=== PATIENT | male | born 1955 | race Caucasian/White ===

== ENCOUNTER 2016-03-28 18:28 | Emergency (ER) | payer OTHER ==
[~2016-03-28 18:28] MED LIST: ADV250INH INH; ALBU17IN INH; ALBU83IN INH; ALBUTEROL INH; AMIO400T OR; BUME1TAB13 PO; CARD180C4 PO; CARDIZEM PO; COLC1TAB5 PO; COUM10TA OR; DIGO0.257 OR; DIGO25TA PO; ELIQ5TAB PO; K-TA10TA OR; LASI80TA PO; LOPR1TAB6 PO; MAGN400T5 PO; MEDR4PAK PO; METO50TA4 OR; OXYCODONE PD; PERC5TAB8 OR; POTA-77 PO; POTA20TA2 PO; POTA20TA6 PO; PRED50TA PO; RAMI25CA OR; SING5CHW PO; SLOWTAB OR; SLOWTAB PO; SPIR1CAP INH; SPIR50TA2 PO; SPIRPOW PO; SYMB16INH INH; SYMB80AE INH; TRAM50TA2 OR; TYLE325T5 PO; WARF-22 PO; WARF-23 PO
[2016-03-28 19:06] LABS: BASO # 0.1 K/mm3 (0.0-0.2); BASO % 1.2 % (0.0-1.0); EOS # 0.1 K/mm3 (0.0-0.50); EOS % 0.8 % (0.0-3.0); LARGE UNSTAINED CELL # 0.1 K/mm3 (0.0-0.4); LARGE UNSTAINED CELL % 1.8 % (0.0-4.0); LYMPH # 0.8 K/mm3 (1.5-4.5); LYMPH % 8.9 % (24.0-44.0); MEAN CORPUSCULAR HGB CONC 33.6 g/dl (32.0-36.5); MEAN CORPUSCULAR VOLUME 92.3 fl (80.0-96.0); MONO # 0.6 K/mm3 (0.0-0.8); MONO % 7.9 % (0.0-5.0); NEUTROPHILS # 6.2 K/mm3 (1.8-7.7); NEUTROPHILS % 79.3 % (36.0-66.0); PLATELET COUNT, AUTOMATED 174 k/mm3 (150-450); RED CELL DISTRIBUTION WIDTH 13.4 % (11.5-14.5); WHITE BLOOD COUNT 7.9 K/mm3 (4.0-10.0)
[2016-03-28] MEDS ORDERED: ASPIRIN 81 MG CHEW TABLET As Ordered ONE (19:07)
[2016-03-28] MEDS ORDERED: ACETAMINOPHEN 325 MG TAB As Ordered ONE (19:35)
[2016-03-28] MEDS ORDERED: IPRATROPIUM 0.5MG/ALBUTEROL 2.5MG INH SOL UD 3ML (DUONEB)(J7620) As Ordered ONE (19:37)
[2016-03-28 19:54] LABS: ABG BASE EXCESS 7.5 (-2.0-2.0); ABG DEVICE NASAL CANN; ABG HCO3 32.2 MEQ/L (22.0-26.0); ABG PARTIAL PRESSURE CO2 45.2 mmHg (35.0-45.0); ABG PARTIAL PRESSURE O2 73.5 mmHg (75.0-100.0); ABG STANDARD HCO3 31.3 MEQ/L (22.0-26.0); ABG TOTAL CO2 33.6 MEQ/L (23.0-31.0); ABG pH (ARTERIAL) 7.471 UNITS (7.350-7.450)
[2016-03-28 19:56] LABS: INR 1.11
[2016-03-28 20:05] LABS: ANION GAP 7 MEQ/L (8-16); BLOOD UREA NITROGEN 18 MG/DL (7-18); CALCIUM LEVEL 8.6 MG/DL (8.8-10.2); CARBON DIOXIDE LEVEL 34 MEQ/L (21-32); CHLORIDE LEVEL 101 MEQ/L (98-107); GLOMERULAR FILTRATION RATE 59.9 (>49); GLUCOSE, FASTING 119 MG/DL (80-110); POTASSIUM SERUM 4.5 MEQ/L (3.5-5.1); SODIUM LEVEL 142 MEQ/L (136-145)
[2016-03-28] MEDS ORDERED: methylPREDNISolone INJ 125 MG/2 ML VIAL (J2930) As Ordered ONE (20:32)
[2016-03-28] MEDS ORDERED: MOXIFLOXACIN 400 MG TAB As Ordered ONE (21:22)
[2016-03-28] MEDS ORDERED: BENZONATATE 100 MG CAP As Ordered ONE (21:25)
[2016-03-28] MEDS ORDERED: ALBUTEROL SULFATE 2.5 MG/0.5 ML INH NEB SOLN As Ordered ONE (21:26)
--- NOTE | 2016-03-28 21:46 | EDDOCDS ---
Nurse's Notes [facility] Name: Terell Mujica Jr Age: 60 yrs Sex: Male : 1955 Arrival Date: 03/28/2016 Time: 18:28 Bed 12 Private MD: Cameron Rivas Diagnosis: Pneumonia, unspecified organism Presentation: 03/28 18:35 Presenting complaint: Patient states: increasing SOB since this past Tuesday sharp jjr pain to left anterior/posterior chest today pain aggravated with cough. Adult Sepsis Screening: The patient does not have new or worsening altered mentation. Patient has a respiratory rate of greater than or equal to 22 (1 point). Systolic blood pressure is greater than 100. Patient has a qSOFA score of 1- Negative Sepsis Screen. Suicide/Homicide risk assessment- the patient denies having any suicidal and/or homicidal ideations and does not present with any other emotional, behavioral or mental health complaints. Status: Patient is not a regulatory services consultant or dependent. Transition of care: patient was not received from another setting of care. 18:35 Acuity: PATTI Level 2 jjr 18:35 Method Of Arrival: Walkin/Carried/Asstd jjr Triage Assessment: 18:41 General: Appears distressed. Pain: Location: left scapular area and anterior aspect of jjr left upper chest. Pt Declines HIV testing. Neurological: No deficits noted. Respiratory: Onset: The symptoms/episode began/occurred gradually, Airway is patent Respiratory effort is labored, with retractions, Respiratory pattern is tachypnea. Historical: - Allergies: atrial fib; No known drug Allergies; - Home Meds: 1. Eliquis 5 mg oral tab 1 tab 2 times per day 2. potassium chloride 10 mEq Oral cpER 2 caps 2 times per day 3. Lasix 80 mg Oral tab 2 tabs 2 times per day 4. spironolactone 25 mg Oral tab 0.5 tab once daily 5. Symbicort 160-4.5 mcg/actuation inhalation HFAA 2 puffs 2 times per day 6. Spiriva with HandiHaler 18 mcg Inhl CpDv 1 cap once daily 7. Proventil 90 mcg/actuation Inhl aero prn 8. albuterol sulfate 2.5 mg /3 mL (0.083 %) Nebulizer nebu prn (Last dose: 03/28/2016) - PMHx: Cancer, Testicular- Right; Asthma; DVT; - PSHx: , right orchiectomy testicular cancer; Heart catherization; Enrique Filter Placement; Hernia repair- Left inguinal; - Social history: Smoking status: Patient states was never smoker of tobacco. No barriers to communication noted, The patient speaks fluent Telugu. - Family history: Not pertinent. - : The pt / caregiver states he / she is on anticoagulants: Eliquis Home medication list is obtained from the patient. - Exposure Risk Screening:: None identified. Screenin:22 Screening information is obtained from the patient. Fall risk: No risks identified. jp6 Assistance ADL's: requires no assistance with activities of daily living. Abuse/DV Screen: The patient / caregiver reports he/she is: not in a situation that causes fear, pain or injury. Nutritional screening: No deficits noted. home support is adequate. 21:20 Advance Directives: Currently, there is no health care proxy. There is no active DNR jp6 order. There is no living will. Assessment: 19:22 Reassessment: Patient states symptoms have not improved. Adult Sepsis Screening: The jp6 patient does not have new or worsening altered mentation. Patient has a respiratory rate of greater than or equal to 22 (1 point). Systolic blood pressure is greater than 100. Patient has a qSOFA score of 1- Negative Sepsis Screen. General: Appears distressed, ill, obese, uncomfortable, Behavior is appropriate for age, cooperative, Reports fever for feeling ill for fatigue for 0-12 hours. Pain: Location: chest. Neurological: Level of Consciousness is awake, alert, Oriented to person, place, time. EENT: No deficits noted. Cardiovascular: Capillary refill < 3 seconds Heart tones S1 S2 present Rhythm is irregular Chest pain is described as mild. Respiratory: Airway is patent Respiratory effort is even, labored, Respiratory pattern is tachypnea Breath sounds with wheezes inspiratory expiratory bilaterally. GI: No deficits noted. : No deficits noted. Derm: Skin is dry, Skin is flushed, Skin temperature is hot. Musculoskeletal: No deficits noted. 19:55 Cardiovascular: Rhythm is atrial fibrillation. jp6 21:30 Reassessment: Patient states symptoms have improved. Pain: Denies pain. Cardiovascular: jp6 Rhythm is atrial fibrillation. Respiratory: Airway is patent Respiratory effort is even, unlabored, Respiratory pattern is regular, symmetrical, Breath sounds with wheezes inspiratory expiratory is moving more air. 21:40 Reassessment: Patient states symptoms have not improved. Cardiovascular: Rhythm is jp6 atrial fibrillation. Respiratory: Airway is patent Respiratory effort is even, labored, pursed lip. Derm: Skin is pink, warm & dry. Vital Signs: 18:31 BP 168 / 91; Pulse 103; Resp 30; Pulse Ox 91% on R/A; Weight 153.77 kg; Height 6 ft. 3 elp in. (190.50 cm); 19:22 Temp 100.9(O); jp6 19:35 BP 138 / 63 (auto/); jp6 19:35 Pulse 102 MON; Pulse Ox 93% ; jp6 19:50 BP 113 / 55 (auto/); jp6 19:50 Pulse 106 MON; Pulse Ox 91% ; jp6 20:05 BP 154 / 79 (auto/); jp6 20:05 Pulse 130 MON; Pulse Ox 92% ; jp6 20:20 BP 129 / 68 (auto/); jp6 20:20 Pulse 102 MON; Pulse Ox 93% ; jp6 20:35 BP 152 / 72 (auto/); jp6 20:35 Pulse 114 MON; Pulse Ox 94% ; jp6 20:38 Temp 99.3(O); jp6 20:50 BP 155 / 82 (auto/); jp6 20:50 Pulse 108 MON; Pulse Ox 90% ; jp6 21:20 BP 144 / 110 (auto/); jp6 21:20 Pulse 110 MON; Pulse Ox 90% ; jp6 21:20 Resp 22; Pain 2/10; jp6 18:31 Body Mass Index 42.37 (153.77 kg, 190.50 cm) elp Vitals: 18:31 Log In Time: March 28, 2016 at 18:29. RN notified that patient meets Red Flag elp criteria. ED Course: 18:30 Patient visited by Nanette Solorio PCA. elp 18:30 Cameron Rivas is Private Physician. elp 18:30 Patient moved to Waiting elp 18:31 Patient visited by Nanette Solorio PCA. elp 18:35 Kellie Jacob,NIR is Primary Nurse. jjr 18:35 Patient moved to 12 jjr 18:36 Triage Initiated jjr 18:51 Patient visited by [facility]. jml1 18:51 EKG done. (by ED staff). Reviewed by Sissy Holloway MD. jml1 18:54 surveillance system monitor on. Pulse ox on. NIBP on. jjr 18:54 Inserted saline lock: 20 gauge in left antecubital area and blood collected. Labs jjr drawn. (by ED staff). Sent per order to lab. O2 via nasal cannula \T\ 3L/min. 19:03 Patient visited by Cuong Waldron PCA. kb5 19:05 Primary Nurse role handed off by Kellie aJcob,RN jp6 19:05 Marni Mckeon,RN is Primary Nurse. jp6 19:10 Bur[facility] Gimenez F[facility] is [facility]. ke 19:10 Patient visited by Burak Gimenez FNP. ke 19:10 Patient visited by Burak Gimenez FNP. ke 19:22 The patient / caregiver is instructed regarding the plan of care and ED course. jp6 19:42 -Influenza A&B Rapid Antigen - Nose Sent. jp6 19:43 Patient visited by Burak Gimenez FNP. ke 19:53 -Arterial Blood Gas Sent. rs5 20:10 [facility] Payment Agreement was scanned into [employer] and attached to record. zo 20:11 Patient visited by Burak Gimenez FNP. ke 20:48 Patient visited by Burak Gimenez FNP. ke 21:20 Discontinued lock intact, bleeding controlled, pressure dressing applied, No jp6 redness/swelling at site. No procedures done that require assistance. 21:22 Cameron Rivas is Referral Physician. ke Administered Medications: 19:22 Drug: Aspirin 324 mg [aspirin 81 mg chewable tablet (4 tabs)] Route: PO; jp6 19:37 Drug: Acetaminophen 975 mg [acetaminophen 325 mg tablet (3 tabs)] Route: PO; jp6 19:53 Drug: Albuterol-Ipratropium 1 neb [ipratropium-albuterol 0.5 mg-3 mg(2.5 mg base)/3 mL rs5 nebulization soln (1 neb)] Route: Nebulizer; 19:53 Drug: Albuterol-Ipratropium 1 neb [ipratropium-albuterol 0.5 mg-3 mg(2.5 mg base)/3 mL rs5 nebulization soln (1 neb)] Route: Nebulizer; 19:53 Drug: Albuterol-Ipratropium 1 neb [ipratropium-albuterol 0.5 mg-3 mg(2.5 mg base)/3 mL rs5 nebulization soln (1 neb)] Route: Nebulizer; 20:37 Not Given (other): methylPREDNISolone Sodium Succinate 125 mg IM once ke 20:38 Drug: Solu-MEDROL 125 mg [Solu-Medrol 500 mg intravenous solution (125 mg)] Route: IVP; jp6 Site: left antecubital; 21:25 Drug: Albuterol 5 mg [albuterol sulfate 2.5 mg/0.5 mL solution for nebulization (1 mL)] rs5 Route: Nebulizer; RT: 19:54 Initial Med Neb Given as ordered Subsequent Med Neb Given as ordered Patient was rs5 reinforced on procedure Patient tolerated procedure well without adverse effect. Respiratory: Respiratory effort is even, labored, Respiratory pattern is regular tachypnea Breath sounds with wheezes bilaterally. 19:57 Respiratory: Reports cough that is productive sputumis green and yellow with blood rs5 streaks. 21:28 Subsequent Med Neb Given as ordered Patient tolerated procedure well without adverse rs5 effect. Order Results: Lab Order: B-Type Natiuretic Peptide; SPEC'M 03/28/16 18:49 Test: BRAIN NATRIURETIC PEPTIDE; Value: 195; Range: <100; Abnormal: Above high normal; Units: PG/ML; Status: F Lab Order: Basic Metabolic Profile; SPEC'M 03/28/16 19:33 Test: GLUCOSE, FASTING; Value: 119; Range: 80-110; Abnormal: Above high normal; Units: MG/DL; Status: F Test: BLOOD UREA NITROGEN; Value: 18; Range: 7-18; Units: MG/DL; Status: F Test: CREATININE FOR GFR; Value: 1.30; Range: 0.70-1.30; Units: MG/DL; Status: F Test: GLOMERULAR FILTRATION RATE; Value: 59.9; Range: >49; Status: F Test: SODIUM LEVEL; Value: 142; Range: 136-145; Units: MEQ/L; Status: F Test: POTASSIUM SERUM; Value: 4.5; Range: 3.5-5.1; Units: MEQ/L; Status: F Test: CHLORIDE LEVEL; Value: 101; Range: 98-107; Units: MEQ/L; Status: F Test: CARBON DIOXIDE LEVEL; Value: 34; Range: 21-32; Abnormal: Above high normal; Units: MEQ/L; Status: F Test: ANION GAP; Value: 7; Range: 8-16; Abnormal: Below low normal; Units: MEQ/L; Status: F Test: CALCIUM LEVEL; Value: 8.6; Range: 8.8-10.2; Abnormal: Below low normal; Units: MG/DL; Status: F Test Note: ; Units are mL/min/1.73 m2 Chronic Kidney Disease Staging per NKF: Stage I & II GFR >=60 Normal to Mildly Decreased Stage III GFR 30-59 Moderately Decreased Stage IV GFR 15-29 Severely Decreased Stage V GFR <15 Very Little GFR Left ESRD GFR <15 on 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 Lab Order: CBC with Diff; SPEC'M 03/28/16 18:49 Test: WHITE BLOOD COUNT; Value: 7.9; Range: 4.0-10.0; Units: K/mm3; Status: F Test: RED BLOOD COUNT; Value: 4.66; Range: 4.30-6.10; Units: M/mm3; Status: F Test: HEMOGLOBIN; Value: 14.5; Range: 14.0-18.0; Units: g/dl; Status: F Test: HEMATOCRIT; Value: 43.0; Range: 42.0-52.0; Units: %; Status: F Test: MEAN CORPUSCULAR VOLUME; Value: 92.3; Range: 80.0-96.0; Units: fl; Status: F Test: MEAN CORPUSCULAR HEMOGLOBIN; Value: 31.0; Range: 27.0-33.0; Units: pg; Status: F Test: MEAN CORPUSCULAR HGB CONC; Value: 33.6; Range: 32.0-36.5; Units: g/dl; Status: F Test: RED CELL DISTRIBUTION WIDTH; Value: 13.4; Range: 11.5-14.5; Units: %; Status: F Test: PLATELET COUNT, AUTOMATED; Value: 174; Range: 150-450; Units: k/mm3; Status: F Test: NEUTROPHILS %; Value: 79.3; Range: 36.0-66.0; Abnormal: Above high normal; Units: %; Status: F Test: LYMPH %; Value: 8.9; Range: 24.0-44.0; Abnormal: Below low normal; Units: %; Status: F Test: MONO %; Value: 7.9; Range: 0.0-5.0; Abnormal: Above high normal; Units: %; Status: F Test: EOS %; Value: 0.8; Range: 0.0-3.0; Units: %; Status: F Test: BASO %; Value: 1.2; Range: 0.0-1.0; Abnormal: Above high normal; Units: %; Status: F Test: LARGE UNSTAINED CELL %; Value: 1.8; Range: 0.0-4.0; Units: %; Status: F Test: NEUTROPHILS #; Value: 6.2; Range: 1.8-7.7; Units: K/mm3; Status: F Test: LYMPH #; Value: 0.8; Range: 1.5-4.5; Abnormal: Below low normal; Units: K/mm3; Status: F Test: MONO #; Value: 0.6; Range: 0.0-0.8; Units: K/mm3; Status: F Test: EOS #; Value: 0.1; Range: 0.0-0.50; Units: K/mm3; Status: F Test: BASO #; Value: 0.1; Range: 0.0-0.2; Units: K/mm3; Status: F Test: LARGE UNSTAINED CELL #; Value: 0.1; Range: 0.0-0.4; Units: K/mm3; Status: F Lab Order: Cardiac Injury Profile; SPEC'M 03/28/16 19:33 Test: CPK CREATINE PHOSPHOKINASE; Value: 78; Range: 39-308; Units: U/L; Status: F Test: CK-MB VALUE MASS; Value: 1.0; Range: 0.0-3.6; Units: NG/ML; Status: F Test: MB/CK RELATIVE INDEX; Value: 1.28; Range: < OR =4; Status: F Test Note: ; DIAGNOSIS CRITERIA MMB ng/ml Relative Index (RI) NON-AMI < or = 5 N/A CORONADO ZONE > 5 < or = 4 AMI > 5 > 4 Lab Order: Prothrombin Time Profile\E\INR; [facility]' 03/28/16 19:33 Test: PROTHROMBIN TIME; Value: 14.4; Range: 12.3-14.5; Units: SECONDS; Status: F Test: INR; Value: 1.11; Status: F Test Note: ; THERAPUTIC HUMAN INR VALUES INDICATIONS NORMAL RANGES PROPHYLAXIS/TREATMENT OF: VENOUS THROMBOSIS 2.0-3.0 PULMONARY EMBOLISM 2.0-3.0 PREVENTION OF SYSTEMIC EMBOLISM FROM: TISSUE HEART VALVES 2.0-3.0 ACUTE MYOCARDIAL INFARCTION 2.0-3.0 VALVULAR HEART DISEASE 2.0-3.0 ATRIAL FIBRILLATION 2.0-3.0 MECHANICAL VALVES(HIGH RISK) 2.5-3.5 RECURRENT MYOCARDIAL INFARCTION 2.5-3.5 Lab Order: Troponin; [facility] 03/28/16 19:33 Test: TROPONIN I; Value: < 0.02; Range: < 0.10; Units: NG/ML; Status: F Test Note: ; Troponin I Reference Interval for [place] LOCI: 99th Percentile= 0.00-0.045 ng/ml Risk Stratification: <= 0.10 ng/ml Decreased Risk for Adverse Clinical Events. 0.10-1.50 ng/ml Increased Risk for Adverse Clinical Events. Evaluation of additional criterion and/or repeat testing in 2-6 hours is suggested to rule out myocardial damage. >= 1.50 ng/ml Indicative of Myocardial Injury. Lab Order: -Arterial Blood Gas; [facility] 03/28/16 19:42 Test: ABG pH (ARTERIAL); Value: 7.471; Range: 7.350-7.450; Abnormal: Above high normal; Units: UNITS; Status: F Test: ABG PARTIAL PRESSURE CO2; Value: 45.2; Range: 35.0-45.0; Abnormal: Above high normal; Units: mmHg; Status: F Test: ABG PARTIAL PRESSURE O2; Value: 73.5; Range: 75.0-100.0; Abnormal: Below low normal; Units: mmHg; Status: F Test: ABG TOTAL CO2; Value: 33.6; Range: 23.0-31.0; Abnormal: Above high normal; Units: MEQ/L; Status: F Test: ABG HCO3; Value: 32.2; Range: 22.0-26.0; Abnormal: Above high normal; Units: MEQ/L; Status: F Test: ABG BASE EXCESS; Value: 7.5; Range: -2.0-2.0; Abnormal: Above high normal; Status: F Test: ABG STANDARD HCO3; Value: 31.3; Range: 22.0-26.0; Abnormal: Above high normal; Units: MEQ/L; Status: F Test: ABG O2 SATURATION; Value: 94.5; Range: 95.0-99.0; Abnormal: Below low normal; Units: %; Status: F Test: ABG DEVICE; Value: NASAL BERT; Status: F Lab Order: -Influenza A&B Rapid Antigen - Nose; SPEC'M 03/28/16 19:41 Test: INFLUENZA A RAPID SCR by ICA; Value: INFLUENZA A RESULTS NEGATIVE; Status: F Test: INFLUENZA A RAPID SCR by ICA; Value: Comments:; Status: F Test: INFLUENZA B RAPID SCR by ICA; Value: INFLUENZA B RESULTS NEGATIVE; Status: F Test Note: ; The Influenza test is a direct rapid immunoassay for the qualitative detection of Influenza viral antigen. Cell culture (Viral Culture) testing should be considered to confirm NEGATIVE results and to assist in detecting other viruses that can provide similar clinical symptoms. Please contact the lab within 24 hours ([phone]) if confirmatory testing is desired. Lab Order: D-DIMER QUANT; SPEC'M 03/28/16 19:33 Test: D-DIMER QUANT; Value: < 270.0; Range: <500; Units: ng/ml; Status: F Outcome: 21:20 Discharge Assessment: Patient awake, alert and oriented x 3. No cognitive and/or jp6 functional deficits noted. Patient verbalized understanding of disposition instructions. patient administered narcotics - no. The following High Risk Discharge criteria are identified: None. Discharged to home via wheelchair, with family. Condition: improved. Discharge instructions given to patient, Instructed on discharge instructions, follow up and referral plans. medication usage, Demonstrated understanding of instructions, medications, Pt was receptive of discharge instructions/ teaching. Prescriptions given X 3. No special radiology studies were completed. Property :Personal belongings accompany Pt. 21:22 Discharge ordered by Provider. ke 21:45 Patient left the ED. jp6 Signatures: Burak Gimenez, RN COMMUNITY RN COMMUNITY Trino Dia Kristopher, LABORAT[facility] kb5 Marni Chirinos, RN RN [facility] jml1 Rusty Pond,RT RT rs5 Nanette Solorio, [facility] elp Marni Mckeon,RN RN jp6 Corrections: (The following items were deleted from the chart) 19:54 18:41 Allergies: no known allergies; irina jp6 MTDD
--- NOTE | 2016-03-28 21:47 | EDDOCDS ---
Physician Documentation [facility] Name: Terell Mujica Jr Age: 60 yrs Sex: Male : 1955 Arrival Date: 03/28/2016 Time: 18:28 Bed 12 Private MD: Cameron Rivas Disposition: 03/28/16 21:22 Discharged to Home/Self Care. Impression: Pneumonia, unspecified organism. - Condition is Stable. - Discharge Instructions: Pneumonia, Adult. - Prescriptions for Tussionex Pennkinetic ER 8- 10 mg/5 mL Oral Suspension, Sust. Release 12 hr - take 5 milliliter by ORAL route every 12 hours As needed; 120 milliliter. Prednisone 20 mg Oral Tablet - take 1 tablet by ORAL route as directed Day 1-3: 3 po, day 4-7: 2 po, day 8-10: 1 po; 20 tablet. Moxifloxacin 400 mg Oral Tablet - take 1 tablet by ORAL route once daily; 10 tablet. - Medication Reconciliation, Local Pharmacy Hours form. - Follow up: Cameron Rivas; When: 2 - 3 days; Reason: Recheck today's complaints, Continuance of care. - Problem is an ongoing problem. - Symptoms are unchanged. Historical: - Allergies: atrial fib; No known drug Allergies; - Home Meds: 1. Eliquis 5 mg oral tab 1 tab 2 times per day 2. potassium chloride 10 mEq Oral cpER 2 caps 2 times per day 3. Lasix 80 mg Oral tab 2 tabs 2 times per day 4. spironolactone 25 mg Oral tab 0.5 tab once daily 5. Symbicort 160-4.5 mcg/actuation inhalation HFAA 2 puffs 2 times per day 6. Spiriva with HandiHaler 18 mcg Inhl CpDv 1 cap once daily 7. Proventil 90 mcg/actuation Inhl aero prn 8. albuterol sulfate 2.5 mg /3 mL (0.083 %) Nebulizer nebu prn (Last dose: 03/28/2016) - PMHx: Cancer, Testicular- Right; Asthma; DVT; - PSHx: , right orchiectomy testicular cancer; Heart catherization; Enrique Filter Placement; Hernia repair- Left inguinal; - Social history: Smoking status: Patient states was never smoker of tobacco. No barriers to communication noted, The patient speaks fluent Albanian. - Family history: Not pertinent. - : The pt / caregiver states he / she is on anticoagulants: Eliquis Home medication list is obtained from the patient. - Exposure Risk Screening:: None identified. Vital Signs: 03/28 18:31 BP 168 / 91; Pulse 103; Resp 30; Pulse Ox 91% on R/A; Weight 153.77 kg / 339 lbs; elp Height 6 ft. 3 in. (190.50 cm); 19:22 Temp 100.9(O); jp6 19:35 BP 138 / 63 (auto/); jp6 19:35 Pulse 102 MON; Pulse Ox 93% ; jp6 19:50 BP 113 / 55 (auto/); jp6 19:50 Pulse 106 MON; Pulse Ox 91% ; jp6 20:05 BP 154 / 79 (auto/); jp6 20:05 Pulse 130 MON; Pulse Ox 92% ; jp6 20:20 BP 129 / 68 (auto/); jp6 20:20 Pulse 102 MON; Pulse Ox 93% ; jp6 20:35 BP 152 / 72 (auto/); jp6 20:35 Pulse 114 MON; Pulse Ox 94% ; jp6 20:38 Temp 99.3(O); jp6 20:50 BP 155 / 82 (auto/); jp6 20:50 Pulse 108 MON; Pulse Ox 90% ; jp6 21:20 BP 144 / 110 (auto/); jp6 21:20 Pulse 110 MON; Pulse Ox 90% ; jp6 21:20 Resp 22; Pain 2/10; jp6 18:31 Body Mass Index 42.37 (153.77 kg, 190.50 cm) elp MDM: 18:37 ECG WITH READING ER PHYS+CARDIAG ordered. EDMS 18:53 Aspirin Chewable Tablet 324 mg PO once ordered. fg 18:53 Ferry Boat Captain/Pulse Ox/q 30 min VS ordered. fg 18:53 IV Saline Lock ordered. fg 18:53 Rhythm Strip to chart ordered. fg 18:53 Undress patient appropriately for examination ordered. fg 18:55 portable chest Ordered. EDMS 18:55 B-Type Natiuretic Peptide Ordered. EDMS 18:55 Basic Metabolic Profile Ordered. EDMS 18:55 CBC with Diff Ordered. EDMS 18:55 Cardiac Injury Profile Ordered. EDMS 18:55 Prothrombin Time Profile\E\INR Ordered. EDMS 18:55 Troponin Ordered. EDMS 19:19 Financial registration complete. zo 19:27 Albuterol-Ipratropium 1 neb Nebulizer every 20 minutes x3 ordered. ke 19:27 Call Respiratory ordered. ke 19:27 Acetaminophen Tablet 975 mg PO once ordered. ke 19:28 B-Type Natiuretic Peptide Reviewed. ke 19:28 CBC with Diff Reviewed. ke 19:28 Call Respiratory complete. ar3 19:29 Call Respiratory ordered. ke 19:29 Call Respiratory complete. ar3 19:30 -Arterial Blood Gas Ordered. EDMS 19:35 Obtain sample by nasopharyngeal swab ordered. ke 19:36 -Influenza A&B Rapid Antigen - Nose Ordered. EDMS 19:37 D-DIMER QUANT Ordered. EDMS 20:01 methylPREDNISolone Sodium Succinate 125 mg IM once ordered. ke 20:01 -Arterial Blood Gas Reviewed. ke 20:01 Prothrombin Time Profile\E\INR Reviewed. ke 20:09 Basic Metabolic Profile Reviewed. ke 20:09 Cardiac Injury Profile Reviewed. ke 20:09 Troponin Reviewed. ke 20:09 -Influenza A&B Rapid Antigen - Nose Reviewed. ke 20:10 [facility] Payment Agreement was scanned into [employer] and attached to record. zo 20:36 Solu-MEDROL 125 mg IVP once ordered. ke 20:37 Prothrombin Time Profile\E\INR Reviewed. ke 20:37 D-DIMER QUANT Reviewed. ke 21:19 Moxifloxacin 400 mg PO once ordered. ke 21:21 Albuterol 5 mg Nebulizer once ordered. ke 21:24 Tessalon 200 mg PO once ordered. ke Administered Medications: 19:22 Drug: Aspirin 324 mg [aspirin 81 mg chewable tablet (4 tabs)] Route: PO; jp6 19:37 Drug: Acetaminophen 975 mg [acetaminophen 325 mg tablet (3 tabs)] Route: PO; jp6 19:53 Drug: Albuterol-Ipratropium 1 neb [ipratropium-albuterol 0.5 mg-3 mg(2.5 mg base)/3 mL rs5 nebulization soln (1 neb)] Route: Nebulizer; 19:53 Drug: Albuterol-Ipratropium 1 neb [ipratropium-albuterol 0.5 mg-3 mg(2.5 mg base)/3 mL rs5 nebulization soln (1 neb)] Route: Nebulizer; 19:53 Drug: Albuterol-Ipratropium 1 neb [ipratropium-albuterol 0.5 mg-3 mg(2.5 mg base)/3 mL rs5 nebulization soln (1 neb)] Route: Nebulizer; 20:37 Not Given (other): methylPREDNISolone Sodium Succinate 125 mg IM once ke 20:38 Drug: Solu-MEDROL 125 mg [Solu-Medrol 500 mg intravenous solution (125 mg)] Route: IVP; jp6 Site: left antecubital; 21:25 Drug: Albuterol 5 mg [albuterol sulfate 2.5 mg/0.5 mL solution for nebulization (1 mL)] rs5 Route: Nebulizer; Signatures: Dispatcher [employer] EDMS Burak Gimenez, IRRIGATION FLUME LAYER IRRIGATION FLUME LAYER Trino Dia Jessica, RN RN Lorene Carmona, MARIA LUISA SILVER PLATER ar3 Sissy Holloway MD MD fg Palmer, Jessica,RN RN [email or web address] Rusty Pond RT rs5 The chart was reviewed and I authenticate all verbal orders and agree with the evaluation and treatment provided.Corrections: (The following items were deleted from the chart) 19:37 19:36 D-DIMER QUANT+LAB ordered. EDMS EDMS 19:54 18:41 Allergies: no known allergies; irina jp6 Attachments: 20:10 [facility] Payment Agreement zo MTDD
--- NOTE | 2016-03-29 11:25 | REP ---
Clinical: Chest pain and shortness of breath . Comparison: 05/30/2014 . Findings: The mediastinum and cardiac silhouette are stable and within normal limits for portable technique. The lung oro are clear without acute consolidation, effusion, or pneumothorax. Skeletal structures are intact. Impression: Normal portable chest x-ray Signed by Fred Bill MD 03/29/2016 01:57 A
--- NOTE | 2016-03-29 20:47 | ECGEPIP ---
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
--- NOTE | 2016-03-30 22:46 | EDDOCDS ---
Physician Documentation [facility] Name: Terell Mujica Jr Age: 60 yrs Sex: Male : 1955 Arrival Date: 03/28/2016 Time: 18:28 Bed 12 Private MD: Cameron Rivas Disposition: 03/28/16 21:22 Discharged to Home/Self Care. Impression: Pneumonia, unspecified organism. - Condition is Stable. - Discharge Instructions: Pneumonia, Adult. - Prescriptions for Tussionex Pennkinetic ER 8- 10 mg/5 mL Oral Suspension, Sust. Release 12 hr - take 5 milliliter by ORAL route every 12 hours As needed; 120 milliliter. Prednisone 20 mg Oral Tablet - take 1 tablet by ORAL route as directed Day 1-3: 3 po, day 4-7: 2 po, day 8-10: 1 po; 20 tablet. Moxifloxacin 400 mg Oral Tablet - take 1 tablet by ORAL route once daily; 10 tablet. - Medication Reconciliation, Local Pharmacy Hours form. - Follow up: Cameron Rivas; When: 2 - 3 days; Reason: Recheck today's complaints, Continuance of care. - Problem is an ongoing problem. - Symptoms are unchanged. Historical: - Allergies: atrial fib; No known drug Allergies; - Home Meds: 1. Eliquis 5 mg oral tab 1 tab 2 times per day 2. potassium chloride 10 mEq Oral cpER 2 caps 2 times per day 3. Lasix 80 mg Oral tab 2 tabs 2 times per day 4. spironolactone 25 mg Oral tab 0.5 tab once daily 5. Symbicort 160-4.5 mcg/actuation inhalation HFAA 2 puffs 2 times per day 6. Spiriva with HandiHaler 18 mcg Inhl CpDv 1 cap once daily 7. Proventil 90 mcg/actuation Inhl aero prn 8. albuterol sulfate 2.5 mg /3 mL (0.083 %) Nebulizer nebu prn (Last dose: 03/28/2016) - PMHx: Cancer, Testicular- Right; Asthma; DVT; - PSHx: , right orchiectomy testicular cancer; Heart catherization; [place] Filter Placement; Hernia repair- Left inguinal; - Social history: Smoking status: Patient states was never smoker of tobacco. No barriers to communication noted, The patient speaks fluent [place]. - Family history: Not pertinent. - : The pt / caregiver states he / she is on anticoagulants: Eliquis Home medication list is obtained from the patient. - Exposure Risk Screening:: None identified. Vital Signs: 03/28 18:31 BP 168 / 91; Pulse 103; Resp 30; Pulse Ox 91% on R/A; Weight 153.77 kg / 339 lbs; elp Height 6 ft. 3 in. (190.50 cm); 19:22 Temp 100.9(O); jp6 19:35 BP 138 / 63 (auto/); jp6 19:35 Pulse 102 MON; Pulse Ox 93% ; jp6 19:50 BP 113 / 55 (auto/); jp6 19:50 Pulse 106 MON; Pulse Ox 91% ; jp6 20:05 BP 154 / 79 (auto/); jp6 20:05 Pulse 130 MON; Pulse Ox 92% ; jp6 20:20 BP 129 / 68 (auto/); jp6 20:20 Pulse 102 MON; Pulse Ox 93% ; jp6 20:35 BP 152 / 72 (auto/); jp6 20:35 Pulse 114 MON; Pulse Ox 94% ; jp6 20:38 Temp 99.3(O); jp6 20:50 BP 155 / 82 (auto/); jp6 20:50 Pulse 108 MON; Pulse Ox 90% ; jp6 21:20 BP 144 / 110 (auto/); jp6 21:20 Pulse 110 MON; Pulse Ox 90% ; jp6 21:20 Resp 22; Pain 2/10; jp6 18:31 Body Mass Index 42.37 (153.77 kg, 190.50 cm) elp MDM: 18:37 ECG WITH READING ER PHYS+CARDIAG ordered. EDMS 18:53 Aspirin Chewable Tablet 324 mg PO once ordered. fg 18:53 Mechanical Equipment Test Engineer/Pulse Ox/q 30 min VS ordered. fg 18:53 IV Saline Lock ordered. fg 18:53 Rhythm Strip to chart ordered. fg 18:53 Undress patient appropriately for examination ordered. fg 18:55 portable chest Ordered. EDMS 18:55 B-Type Natiuretic Peptide Ordered. EDMS 18:55 Basic Metabolic Profile Ordered. EDMS 18:55 CBC with Diff Ordered. EDMS 18:55 Cardiac Injury Profile Ordered. EDMS 18:55 Prothrombin Time Profile\E\INR Ordered. EDMS 18:55 Troponin Ordered. EDMS 19:19 Financial registration complete. zo 19:27 Albuterol-Ipratropium 1 neb Nebulizer every 20 minutes x3 ordered. ke 19:27 Call Respiratory ordered. ke 19:27 Acetaminophen Tablet 975 mg PO once ordered. ke 19:28 B-Type Natiuretic Peptide Reviewed. ke 19:28 CBC with Diff Reviewed. ke 19:28 Call Respiratory complete. ar3 19:29 Call Respiratory ordered. ke 19:29 Call Respiratory complete. ar3 19:30 -Arterial Blood Gas Ordered. EDMS 19:35 Obtain sample by nasopharyngeal swab ordered. ke 19:36 -Influenza A&B Rapid Antigen - Nose Ordered. EDMS 19:37 D-DIMER QUANT Ordered. EDMS 20:01 methylPREDNISolone Sodium Succinate 125 mg IM once ordered. ke 20:01 -Arterial Blood Gas Reviewed. ke 20:01 Prothrombin Time Profile\E\INR Reviewed. ke 20:09 Basic Metabolic Profile Reviewed. ke 20:09 Cardiac Injury Profile Reviewed. ke 20:09 Troponin Reviewed. ke 20:09 -Influenza A&B Rapid Antigen - Nose Reviewed. ke 20:10 [facility] Payment Agreement was scanned into [employer] and attached to record. zo 20:36 Solu-MEDROL 125 mg IVP once ordered. ke 20:37 Prothrombin Time Profile\E\INR Reviewed. ke 20:37 D-DIMER QUANT Reviewed. ke 21:19 Moxifloxacin 400 mg PO once ordered. ke 21:21 Albuterol 5 mg Nebulizer once ordered. ke 21:24 Tessalon 200 mg PO once ordered. ke 03/29 12:51 T-Sheet-- Draft Copy was scanned into [employer] and attached to record. gb 12:51 ECG/EKG was scanned into [employer] and attached to record. gb 12:51 Trend VS was scanned into [employer] and attached to record. gb Administered Medications: 03/28 19:22 Drug: Aspirin 324 mg [aspirin 81 mg chewable tablet (4 tabs)] Route: PO; jp6 19:37 Drug: Acetaminophen 975 mg [acetaminophen 325 mg tablet (3 tabs)] Route: PO; jp6 19:53 Drug: Albuterol-Ipratropium 1 neb [ipratropium-albuterol 0.5 mg-3 mg(2.5 mg base)/3 mL rs5 nebulization soln (1 neb)] Route: Nebulizer; 19:53 Drug: Albuterol-Ipratropium 1 neb [ipratropium-albuterol 0.5 mg-3 mg(2.5 mg base)/3 mL rs5 nebulization soln (1 neb)] Route: Nebulizer; 19:53 Drug: Albuterol-Ipratropium 1 neb [ipratropium-albuterol 0.5 mg-3 mg(2.5 mg base)/3 mL rs5 nebulization soln (1 neb)] Route: Nebulizer; 20:37 Not Given (other): methylPREDNISolone Sodium Succinate 125 mg IM once ke 20:38 Drug: Solu-MEDROL 125 mg [Solu-Medrol 500 mg intravenous solution (125 mg)] Route: IVP; jp6 Site: left antecubital; 21:25 Drug: Albuterol 5 mg [albuterol sulfate 2.5 mg/0.5 mL solution for nebulization (1 mL)] rs5 Route: Nebulizer; Signatures: Dispatcher [employer] EDMS Abena Vickers, Reg Reg gb Burak Gimenez, EXERCISE PHYSIOLOGIST CERTIFIED EXERCISE PHYSIOLOGIST CERTIFIED Trino Dia Jessica, RN RN Lorene Carmona, MARIA LUISA DEATH CLAIM CLERK ar3 Sissy Holloway MD MD fg Palmer, Jessica,RN RN [id number] Rusty Pond RT rs5 The chart was reviewed and I authenticate all verbal orders and agree with the evaluation and treatment provided.Corrections: (The following items were deleted from the chart) 19:37 19:36 D-DIMER QUANT+LAB ordered. EDMS EDMS 19:54 18:41 Allergies: no known allergies; irina jp6 Attachments: 20:10 [facility] Payment Agreement zo 03/29 12:51 T-Sheet-- Draft Copy gb 12:51 ECG/EKG gb Chart Complete MTDD
--- NOTE | 2016-03-30 22:46 | EDDOCDS ---
Physician Documentation [facility] Name: Terell Mujica Jr Age: 60 yrs Sex: Male : 1955 Arrival Date: 03/28/2016 Time: 18:28 Bed 12 Private MD: Cameron Rivas Disposition: 03/28/16 21:22 Discharged to Home/Self Care. Impression: Pneumonia, unspecified organism. - Condition is Stable. - Discharge Instructions: Pneumonia, Adult. - Prescriptions for Tussionex Pennkinetic ER 8- 10 mg/5 mL Oral Suspension, Sust. Release 12 hr - take 5 milliliter by ORAL route every 12 hours As needed; 120 milliliter. Prednisone 20 mg Oral Tablet - take 1 tablet by ORAL route as directed Day 1-3: 3 po, day 4-7: 2 po, day 8-10: 1 po; 20 tablet. Moxifloxacin 400 mg Oral Tablet - take 1 tablet by ORAL route once daily; 10 tablet. - Medication Reconciliation, Local Pharmacy Hours form. - Follow up: Cameron Rivas; When: 2 - 3 days; Reason: Recheck today's complaints, Continuance of care. - Problem is an ongoing problem. - Symptoms are unchanged. Historical: - Allergies: atrial fib; No known drug Allergies; - Home Meds: 1. Eliquis 5 mg oral tab 1 tab 2 times per day 2. potassium chloride 10 mEq Oral cpER 2 caps 2 times per day 3. Lasix 80 mg Oral tab 2 tabs 2 times per day 4. spironolactone 25 mg Oral tab 0.5 tab once daily 5. Symbicort 160-4.5 mcg/actuation inhalation HFAA 2 puffs 2 times per day 6. Spiriva with HandiHaler 18 mcg Inhl CpDv 1 cap once daily 7. Proventil 90 mcg/actuation Inhl aero prn 8. albuterol sulfate 2.5 mg /3 mL (0.083 %) Nebulizer nebu prn (Last dose: 03/28/2016) - PMHx: Cancer, Testicular- Right; Asthma; DVT; - PSHx: , right orchiectomy testicular cancer; Heart catherization; [place] Filter Placement; Hernia repair- Left inguinal; - Social history: Smoking status: Patient states was never smoker of tobacco. No barriers to communication noted, The patient speaks fluent [place]. - Family history: Not pertinent. - : The pt / caregiver states he / she is on anticoagulants: Eliquis Home medication list is obtained from the patient. - Exposure Risk Screening:: None identified. Vital Signs: 03/28 18:31 BP 168 / 91; Pulse 103; Resp 30; Pulse Ox 91% on R/A; Weight 153.77 kg / 339 lbs; elp Height 6 ft. 3 in. (190.50 cm); 19:22 Temp 100.9(O); jp6 19:35 BP 138 / 63 (auto/); jp6 19:35 Pulse 102 MON; Pulse Ox 93% ; jp6 19:50 BP 113 / 55 (auto/); jp6 19:50 Pulse 106 MON; Pulse Ox 91% ; jp6 20:05 BP 154 / 79 (auto/); jp6 20:05 Pulse 130 MON; Pulse Ox 92% ; jp6 20:20 BP 129 / 68 (auto/); jp6 20:20 Pulse 102 MON; Pulse Ox 93% ; jp6 20:35 BP 152 / 72 (auto/); jp6 20:35 Pulse 114 MON; Pulse Ox 94% ; jp6 20:38 Temp 99.3(O); jp6 20:50 BP 155 / 82 (auto/); jp6 20:50 Pulse 108 MON; Pulse Ox 90% ; jp6 21:20 BP 144 / 110 (auto/); jp6 21:20 Pulse 110 MON; Pulse Ox 90% ; jp6 21:20 Resp 22; Pain 2/10; jp6 18:31 Body Mass Index 42.37 (153.77 kg, 190.50 cm) elp MDM: 18:37 ECG WITH READING ER PHYS+CARDIAG ordered. EDMS 18:53 Aspirin Chewable Tablet 324 mg PO once ordered. fg 18:53 Tank Car Mechanic/Pulse Ox/q 30 min VS ordered. fg 18:53 IV Saline Lock ordered. fg 18:53 Rhythm Strip to chart ordered. fg 18:53 Undress patient appropriately for examination ordered. fg 18:55 portable chest Ordered. EDMS 18:55 B-Type Natiuretic Peptide Ordered. EDMS 18:55 Basic Metabolic Profile Ordered. EDMS 18:55 CBC with Diff Ordered. EDMS 18:55 Cardiac Injury Profile Ordered. EDMS 18:55 Prothrombin Time Profile\E\INR Ordered. EDMS 18:55 Troponin Ordered. EDMS 19:19 Financial registration complete. zo 19:27 Albuterol-Ipratropium 1 neb Nebulizer every 20 minutes x3 ordered. ke 19:27 Call Respiratory ordered. ke 19:27 Acetaminophen Tablet 975 mg PO once ordered. ke 19:28 B-Type Natiuretic Peptide Reviewed. ke 19:28 CBC with Diff Reviewed. ke 19:28 Call Respiratory complete. ar3 19:29 Call Respiratory ordered. ke 19:29 Call Respiratory complete. ar3 19:30 -Arterial Blood Gas Ordered. EDMS 19:35 Obtain sample by nasopharyngeal swab ordered. ke 19:36 -Influenza A&B Rapid Antigen - Nose Ordered. EDMS 19:37 D-DIMER QUANT Ordered. EDMS 20:01 methylPREDNISolone Sodium Succinate 125 mg IM once ordered. ke 20:01 -Arterial Blood Gas Reviewed. ke 20:01 Prothrombin Time Profile\E\INR Reviewed. ke 20:09 Basic Metabolic Profile Reviewed. ke 20:09 Cardiac Injury Profile Reviewed. ke 20:09 Troponin Reviewed. ke 20:09 -Influenza A&B Rapid Antigen - Nose Reviewed. ke 20:10 [facility] Payment Agreement was scanned into [employer]) and attached to record. zo 20:36 Solu-MEDROL 125 mg IVP once ordered. ke 20:37 Prothrombin Time Profile\E\INR Reviewed. ke 20:37 D-DIMER QUANT Reviewed. ke 21:19 Moxifloxacin 400 mg PO once ordered. ke 21:21 Albuterol 5 mg Nebulizer once ordered. ke 21:24 Tessalon 200 mg PO once ordered. ke 03/29 12:51 T-Sheet-- Draft Copy was scanned into [employer]) and attached to record. gb 12:51 ECG/EKG was scanned into [employer]) and attached to record. gb 12:51 Trend VS was scanned into [employer]) and attached to record. gb Administered Medications: 03/28 19:22 Drug: Aspirin 324 mg [aspirin 81 mg chewable tablet (4 tabs)] Route: PO; jp6 19:37 Drug: Acetaminophen 975 mg [acetaminophen 325 mg tablet (3 tabs)] Route: PO; jp6 19:53 Drug: Albuterol-Ipratropium 1 neb [ipratropium-albuterol 0.5 mg-3 mg(2.5 mg base)/3 mL rs5 nebulization soln (1 neb)] Route: Nebulizer; 19:53 Drug: Albuterol-Ipratropium 1 neb [ipratropium-albuterol 0.5 mg-3 mg(2.5 mg base)/3 mL rs5 nebulization soln (1 neb)] Route: Nebulizer; 19:53 Drug: Albuterol-Ipratropium 1 neb [ipratropium-albuterol 0.5 mg-3 mg(2.5 mg base)/3 mL rs5 nebulization soln (1 neb)] Route: Nebulizer; 20:37 Not Given (other): methylPREDNISolone Sodium Succinate 125 mg IM once ke 20:38 Drug: Solu-MEDROL 125 mg [Solu-Medrol 500 mg intravenous solution (125 mg)] Route: IVP; jp6 Site: left antecubital; 21:25 Drug: Albuterol 5 mg [albuterol sulfate 2.5 mg/0.5 mL solution for nebulization (1 mL)] rs5 Route: Nebulizer; Signatures: Dispatcher [employer] EDMS Abena Vickers, Reg Reg gb Burak Gimenez, DAIRY CATTLE FARM MANAGER DAIRY CATTLE FARM MANAGER Trino Dia Jessica, RN RN Lorene Carmona, MARIA LUISA COUNSELING SERVICES DIRECTOR ar3 Sissy Holloway MD MD fg Palmer, Jessica,RN RN [id number] Rusty Pond RT rs5 The chart was reviewed and I authenticate all verbal orders and agree with the evaluation and treatment provided.Corrections: (The following items were deleted from the chart) 19:37 19:36 D-DIMER QUANT+LAB ordered. EDMS EDMS 19:54 18:41 Allergies: no known allergies; irina jp6 Attachments: 20:10 [facility] Payment Agreement zo 03/29 12:51 T-Sheet-- Draft Copy gb 12:51 ECG/EKG gb Chart Complete MTDD
--- NOTE | 2016-03-30 22:46 | EDDOCDS ---
Nurse's Notes [facility] Name: Terell Mujica Jr Age: 60 yrs Sex: Male : 1955 Arrival Date: 03/28/2016 Time: 18:28 Bed 12 Private MD: Cameron Rivas Diagnosis: Pneumonia, unspecified organism Presentation: 03/28 18:35 Presenting complaint: Patient states: increasing SOB since this past Tuesday sharp jjr pain to left anterior/posterior chest today pain aggravated with cough. Adult Sepsis Screening: The patient does not have new or worsening altered mentation. Patient has a respiratory rate of greater than or equal to 22 (1 point). Systolic blood pressure is greater than 100. Patient has a qSOFA score of 1- Negative Sepsis Screen. Suicide/Homicide risk assessment- the patient denies having any suicidal and/or homicidal ideations and does not present with any other emotional, behavioral or mental health complaints. Status: Patient is not a service tech or dependent. Transition of care: patient was not received from another setting of care. 18:35 Acuity: PATTI Level 2 jjr 18:35 Method Of Arrival: Walkin/Carried/Asstd jjr Triage Assessment: 18:41 General: Appears distressed. Pain: Location: left scapular area and anterior aspect of jjr left upper chest. Pt Declines HIV testing. Neurological: No deficits noted. Respiratory: Onset: The symptoms/episode began/occurred gradually, Airway is patent Respiratory effort is labored, with retractions, Respiratory pattern is tachypnea. Historical: - Allergies: atrial fib; No known drug Allergies; - Home Meds: 1. Eliquis 5 mg oral tab 1 tab 2 times per day 2. potassium chloride 10 mEq Oral cpER 2 caps 2 times per day 3. Lasix 80 mg Oral tab 2 tabs 2 times per day 4. spironolactone 25 mg Oral tab 0.5 tab once daily 5. Symbicort 160-4.5 mcg/actuation inhalation HFAA 2 puffs 2 times per day 6. Spiriva with HandiHaler 18 mcg Inhl CpDv 1 cap once daily 7. Proventil 90 mcg/actuation Inhl aero prn 8. albuterol sulfate 2.5 mg /3 mL (0.083 %) Nebulizer nebu prn (Last dose: 03/28/2016) - PMHx: Cancer, Testicular- Right; Asthma; DVT; - PSHx: , right orchiectomy testicular cancer; Heart catherization; Enrique Filter Placement; Hernia repair- Left inguinal; - Social history: Smoking status: Patient states was never smoker of tobacco. No barriers to communication noted, The patient speaks fluent Belarusian. - Family history: Not pertinent. - : The pt / caregiver states he / she is on anticoagulants: Eliquis Home medication list is obtained from the patient. - Exposure Risk Screening:: None identified. Screenin:22 Screening information is obtained from the patient. Fall risk: No risks identified. jp6 Assistance ADL's: requires no assistance with activities of daily living. Abuse/DV Screen: The patient / caregiver reports he/she is: not in a situation that causes fear, pain or injury. Nutritional screening: No deficits noted. home support is adequate. 21:20 Advance Directives: Currently, there is no health care proxy. There is no active DNR jp6 order. There is no living will. Assessment: 19:22 Reassessment: Patient states symptoms have not improved. Adult Sepsis Screening: The jp6 patient does not have new or worsening altered mentation. Patient has a respiratory rate of greater than or equal to 22 (1 point). Systolic blood pressure is greater than 100. Patient has a qSOFA score of 1- Negative Sepsis Screen. General: Appears distressed, ill, obese, uncomfortable, Behavior is appropriate for age, cooperative, Reports fever for feeling ill for fatigue for 0-12 hours. Pain: Location: chest. Neurological: Level of Consciousness is awake, alert, Oriented to person, place, time. EENT: No deficits noted. Cardiovascular: Capillary refill < 3 seconds Heart tones S1 S2 present Rhythm is irregular Chest pain is described as mild. Respiratory: Airway is patent Respiratory effort is even, labored, Respiratory pattern is tachypnea Breath sounds with wheezes inspiratory expiratory bilaterally. GI: No deficits noted. : No deficits noted. Derm: Skin is dry, Skin is flushed, Skin temperature is hot. Musculoskeletal: No deficits noted. 19:55 Cardiovascular: Rhythm is atrial fibrillation. jp6 21:30 Reassessment: Patient states symptoms have improved. Pain: Denies pain. Cardiovascular: jp6 Rhythm is atrial fibrillation. Respiratory: Airway is patent Respiratory effort is even, unlabored, Respiratory pattern is regular, symmetrical, Breath sounds with wheezes inspiratory expiratory is moving more air. 21:40 Reassessment: Patient states symptoms have not improved. Cardiovascular: Rhythm is jp6 atrial fibrillation. Respiratory: Airway is patent Respiratory effort is even, labored, pursed lip. Derm: Skin is pink, warm & dry. Vital Signs: 18:31 BP 168 / 91; Pulse 103; Resp 30; Pulse Ox 91% on R/A; Weight 153.77 kg; Height 6 ft. 3 elp in. (190.50 cm); 19:22 Temp 100.9(O); jp6 19:35 BP 138 / 63 (auto/); jp6 19:35 Pulse 102 MON; Pulse Ox 93% ; jp6 19:50 BP 113 / 55 (auto/); jp6 19:50 Pulse 106 MON; Pulse Ox 91% ; jp6 20:05 BP 154 / 79 (auto/); jp6 20:05 Pulse 130 MON; Pulse Ox 92% ; jp6 20:20 BP 129 / 68 (auto/); jp6 20:20 Pulse 102 MON; Pulse Ox 93% ; jp6 20:35 BP 152 / 72 (auto/); jp6 20:35 Pulse 114 MON; Pulse Ox 94% ; jp6 20:38 Temp 99.3(O); jp6 20:50 BP 155 / 82 (auto/); jp6 20:50 Pulse 108 MON; Pulse Ox 90% ; jp6 21:20 BP 144 / 110 (auto/); jp6 21:20 Pulse 110 MON; Pulse Ox 90% ; jp6 21:20 Resp 22; Pain 2/10; jp6 18:31 Body Mass Index 42.37 (153.77 kg, 190.50 cm) elp Vitals: 18:31 Log In Time: March 28, 2016 at 18:29. RN notified that patient meets Red Flag elp criteria. ED Course: 18:30 Patient visited by Nanette Solorio PCA. elp 18:30 Cameron Rivas is Private Physician. elp 18:30 Patient moved to Waiting elp 18:31 Patient visited by Nanette Solorio PCA. elp 18:35 Kellie Jacob,NIR is Primary Nurse. jjr 18:35 Patient moved to 12 jjr 18:36 Triage Initiated jjr 18:51 Patient visited by [facility]. jml1 18:51 EKG done. (by ED staff). Reviewed by Sissy Holloway MD. jml1 18:54 svp research and strategic analysis on. Pulse ox on. NIBP on. jjr 18:54 Inserted saline lock: 20 gauge in left antecubital area and blood collected. Labs jjr drawn. (by ED staff). Sent per order to lab. O2 via nasal cannula \T\ 3L/min. 19:03 Patient visited by Cuong Waldron, MARIA LUISA. kb5 19:05 Primary Nurse role handed off by Kellie Jacob,RN jp6 19:05 Marni Mckeon,RN is Primary Nurse. jp6 19:10 [facility]. ke 19:10 Patient visited by Burak Gimenez FNP. ke 19:10 Patient visited by Burak Gimenez FNP. ke 19:22 The patient / caregiver is instructed regarding the plan of care and ED course. jp6 19:42 -Influenza A&B Rapid Antigen - Nose Sent. jp6 19:43 Patient visited by Burak Gimenez FNP. ke 19:53 -Arterial Blood Gas Sent. rs5 20:10 [facility] [place] [facility] Payment Agreement was scanned into [employer] and attached to record. zo 20:11 Patient visited by Burak Gimenez FNP. ke 20:48 Patient visited by Burak Gimenez FNP. ke 21:20 Discontinued lock intact, bleeding controlled, pressure dressing applied, No jp6 redness/swelling at site. No procedures done that require assistance. 21:22 Cameron Rivas is Referral Physician. ke 03/29 11:53 portable chest Returned. EDMS 12:51 T-Sheet-- Draft Copy was scanned into [employer] and attached to record. gb 12:51 ECG/EKG was scanned into [employer] and attached to record. gb 12:51 Trend VS was scanned into [employer] and attached to record. gb 20:49 EKG-ADULT Returned. EDMS Administered Medications: 03/28 19:22 Drug: Aspirin 324 mg [aspirin 81 mg chewable tablet (4 tabs)] Route: PO; jp6 19:37 Drug: Acetaminophen 975 mg [acetaminophen 325 mg tablet (3 tabs)] Route: PO; jp6 19:53 Drug: Albuterol-Ipratropium 1 neb [ipratropium-albuterol 0.5 mg-3 mg(2.5 mg base)/3 mL rs5 nebulization soln (1 neb)] Route: Nebulizer; 19:53 Drug: Albuterol-Ipratropium 1 neb [ipratropium-albuterol 0.5 mg-3 mg(2.5 mg base)/3 mL rs5 nebulization soln (1 neb)] Route: Nebulizer; 19:53 Drug: Albuterol-Ipratropium 1 neb [ipratropium-albuterol 0.5 mg-3 mg(2.5 mg base)/3 mL rs5 nebulization soln (1 neb)] Route: Nebulizer; 20:37 Not Given (other): methylPREDNISolone Sodium Succinate 125 mg IM once ke 20:38 Drug: Solu-MEDROL 125 mg [Solu-Medrol 500 mg intravenous solution (125 mg)] Route: IVP; jp6 Site: left antecubital; 21:25 Drug: Albuterol 5 mg [albuterol sulfate 2.5 mg/0.5 mL solution for nebulization (1 mL)] rs5 Route: Nebulizer; Attachments: 12:51 Trend VS gb RT: 03/28 19:54 Initial Med Neb Given as ordered Subsequent Med Neb Given as ordered Patient was rs5 reinforced on procedure Patient tolerated procedure well without adverse effect. Respiratory: Respiratory effort is even, labored, Respiratory pattern is regular tachypnea Breath sounds with wheezes bilaterally. 19:57 Respiratory: Reports cough that is productive sputumis green and yellow with blood rs5 streaks. 21:28 Subsequent Med Neb Given as ordered Patient tolerated procedure well without adverse rs5 effect. Order Results: Lab Order: B-Type Natiuretic Peptide; SPEC'M 03/28/16 18:49 Test: BRAIN NATRIURETIC PEPTIDE; Value: 195; Range: <100; Abnormal: Above high normal; Units: PG/ML; Status: F Lab Order: Basic Metabolic Profile; SPEC'M 03/28/16 19:33 Test: GLUCOSE, FASTING; Value: 119; Range: 80-110; Abnormal: Above high normal; Units: MG/DL; Status: F Test: BLOOD UREA NITROGEN; Value: 18; Range: 7-18; Units: MG/DL; Status: F Test: CREATININE FOR GFR; Value: 1.30; Range: 0.70-1.30; Units: MG/DL; Status: F Test: GLOMERULAR FILTRATION RATE; Value: 59.9; Range: >49; Status: F Test: SODIUM LEVEL; Value: 142; Range: 136-145; Units: MEQ/L; Status: F Test: POTASSIUM SERUM; Value: 4.5; Range: 3.5-5.1; Units: MEQ/L; Status: F Test: CHLORIDE LEVEL; Value: 101; Range: 98-107; Units: MEQ/L; Status: F Test: CARBON DIOXIDE LEVEL; Value: 34; Range: 21-32; Abnormal: Above high normal; Units: MEQ/L; Status: F Test: ANION GAP; Value: 7; Range: 8-16; Abnormal: Below low normal; Units: MEQ/L; Status: F Test: CALCIUM LEVEL; Value: 8.6; Range: 8.8-10.2; Abnormal: Below low normal; Units: MG/DL; Status: F Test Note: ; Units are mL/min/1.73 m2 Chronic Kidney Disease Staging per NKF: Stage I & II GFR >=60 Normal to Mildly Decreased Stage III GFR 30-59 Moderately Decreased Stage IV GFR 15-29 Severely Decreased Stage V GFR <15 Very Little GFR Left ESRD GFR <15 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 Lab Order: CBC with Diff; SPEC'M 03/28/16 18:49 Test: WHITE BLOOD COUNT; Value: 7.9; Range: 4.0-10.0; Units: K/mm3; Status: F Test: RED BLOOD COUNT; Value: 4.66; Range: 4.30-6.10; Units: M/mm3; Status: F Test: HEMOGLOBIN; Value: 14.5; Range: 14.0-18.0; Units: g/dl; Status: F Test: HEMATOCRIT; Value: 43.0; Range: 42.0-52.0; Units: %; Status: F Test: MEAN CORPUSCULAR VOLUME; Value: 92.3; Range: 80.0-96.0; Units: fl; Status: F Test: MEAN CORPUSCULAR HEMOGLOBIN; Value: 31.0; Range: 27.0-33.0; Units: pg; Status: F Test: MEAN CORPUSCULAR HGB CONC; Value: 33.6; Range: 32.0-36.5; Units: g/dl; Status: F Test: RED CELL DISTRIBUTION WIDTH; Value: 13.4; Range: 11.5-14.5; Units: %; Status: F Test: PLATELET COUNT, AUTOMATED; Value: 174; Range: 150-450; Units: k/mm3; Status: F Test: NEUTROPHILS %; Value: 79.3; Range: 36.0-66.0; Abnormal: Above high normal; Units: %; Status: F Test: LYMPH %; Value: 8.9; Range: 24.0-44.0; Abnormal: Below low normal; Units: %; Status: F Test: MONO %; Value: 7.9; Range: 0.0-5.0; Abnormal: Above high normal; Units: %; Status: F Test: EOS %; Value: 0.8; Range: 0.0-3.0; Units: %; Status: F Test: BASO %; Value: 1.2; Range: 0.0-1.0; Abnormal: Above high normal; Units: %; Status: F Test: LARGE UNSTAINED CELL %; Value: 1.8; Range: 0.0-4.0; Units: %; Status: F Test: NEUTROPHILS #; Value: 6.2; Range: 1.8-7.7; Units: K/mm3; Status: F Test: LYMPH #; Value: 0.8; Range: 1.5-4.5; Abnormal: Below low normal; Units: K/mm3; Status: F Test: MONO #; Value: 0.6; Range: 0.0-0.8; Units: K/mm3; Status: F Test: EOS #; Value: 0.1; Range: 0.0-0.50; Units: K/mm3; Status: F Test: BASO #; Value: 0.1; Range: 0.0-0.2; Units: K/mm3; Status: F Test: LARGE UNSTAINED CELL #; Value: 0.1; Range: 0.0-0.4; Units: K/mm3; Status: F Lab Order: Cardiac Injury Profile; SPEC'M 03/28/16 19:33 Test: CPK CREATINE PHOSPHOKINASE; Value: 78; Range: 39-308; Units: U/L; Status: F Test: CK-MB VALUE MASS; Value: 1.0; Range: 0.0-3.6; Units: NG/ML; Status: F Test: MB/CK RELATIVE INDEX; Value: 1.28; Range: < OR =4; Status: F Test Note: ; DIAGNOSIS CRITERIA MMB ng/ml Relative Index (RI) NON-AMI < or = 5 N/A CORONADO ZONE > 5 < or = 4 AMI > 5 > 4 Lab Order: Prothrombin Time Profile\E\INR; [facility] 03/28/16 19:33 Test: PROTHROMBIN TIME; Value: 14.4; Range: 12.3-14.5; Units: SECONDS; Status: F Test: INR; Value: 1.11; Status: F Test Note: ; THERAPUTIC HUMAN INR VALUES INDICATIONS NORMAL RANGES PROPHYLAXIS/TREATMENT OF: VENOUS THROMBOSIS 2.0-3.0 PULMONARY EMBOLISM 2.0-3.0 PREVENTION OF SYSTEMIC EMBOLISM FROM: TISSUE HEART VALVES 2.0-3.0 ACUTE MYOCARDIAL INFARCTION 2.0-3.0 VALVULAR HEART DISEASE 2.0-3.0 ATRIAL FIBRILLATION 2.0-3.0 MECHANICAL VALVES(HIGH RISK) 2.5-3.5 RECURRENT MYOCARDIAL INFARCTION 2.5-3.5 Lab Order: Troponin; [facility] 03/28/16 19:33 Test: TROPONIN I; Value: < 0.02; Range: < 0.10; Units: NG/ML; Status: F Test Note: ; Troponin I Reference Interval for [employer] LOCI: 99th Percentile= 0.00-0.045 ng/ml Risk Stratification: <= 0.10 ng/ml Decreased Risk for Adverse Clinical Events. 0.10-1.50 ng/ml Increased Risk for Adverse Clinical Events. Evaluation of additional criterion and/or repeat testing in 2-6 hours is suggested to rule out myocardial damage. >= 1.50 ng/ml Indicative of Myocardial Injury. Lab Order: -Arterial Blood Gas; [facility] 03/28/16 19:42 Test: ABG pH (ARTERIAL); Value: 7.471; Range: 7.350-7.450; Abnormal: Above high normal; Units: UNITS; Status: F Test: ABG PARTIAL PRESSURE CO2; Value: 45.2; Range: 35.0-45.0; Abnormal: Above high normal; Units: mmHg; Status: F Test: ABG PARTIAL PRESSURE O2; Value: 73.5; Range: 75.0-100.0; Abnormal: Below low normal; Units: mmHg; Status: F Test: ABG TOTAL CO2; Value: 33.6; Range: 23.0-31.0; Abnormal: Above high normal; Units: MEQ/L; Status: F Test: ABG HCO3; Value: 32.2; Range: 22.0-26.0; Abnormal: Above high normal; Units: MEQ/L; Status: F Test: ABG BASE EXCESS; Value: 7.5; Range: -2.0-2.0; Abnormal: Above high normal; Status: F Test: ABG STANDARD HCO3; Value: 31.3; Range: 22.0-26.0; Abnormal: Above high normal; Units: MEQ/L; Status: F Test: ABG O2 SATURATION; Value: 94.5; Range: 95.0-99.0; Abnormal: Below low normal; Units: %; Status: F Test: ABG DEVICE; Value: NASAL BERT; Status: F Lab Order: -Influenza A&B Rapid Antigen - Nose; SPEC'M 03/28/16 19:41 Test: INFLUENZA A RAPID SCR by ICA; Value: INFLUENZA A RESULTS NEGATIVE; Status: F Test: INFLUENZA A RAPID SCR by ICA; Value: Comments:; Status: F Test: INFLUENZA B RAPID SCR by ICA; Value: INFLUENZA B RESULTS NEGATIVE; Status: F Test Note: ; The Influenza test is a direct rapid immunoassay for the qualitative detection of Influenza viral antigen. Cell culture (Viral Culture) testing should be considered to confirm NEGATIVE results and to assist in detecting other viruses that can provide similar clinical symptoms. Please contact the lab within 24 hours ([phone]) if confirmatory testing is desired. Lab Order: D-DIMER QUANT; SPEC'M 03/28/16 19:33 Test: D-DIMER QUANT; Value: < 270.0; Range: <500; Units: ng/ml; Status: F Radiology Order: portable chest Test: portable chest REASON FOR EXAMINATION: Chest Pain;Shortness of Breath; Clinical: Chest pain and shortness of breath .; ; Comparison: 05/30/2014 .; ; Findings:; The mediastinum and cardiac silhouette are stable and within normal limits for; portable technique. The lung oro are clear without acute consolidation,; effusion, or pneumothorax. Skeletal structures are intact.; ; Impression:; Normal portable chest x-ray; ; ; Signed by; Fred Bill MD 03/29/2016 01:57 A; Outcome: 21:20 Discharge Assessment: Patient awake, alert and oriented x 3. No cognitive and/or jp6 functional deficits noted. Patient verbalized understanding of disposition instructions. patient administered narcotics - no. The following High Risk Discharge criteria are identified: None. Discharged to home via wheelchair, with family. Condition: improved. Discharge instructions given to patient, Instructed on discharge instructions, follow up and referral plans. medication usage, Demonstrated understanding of instructions, medications, Pt was receptive of discharge instructions/ teaching. Prescriptions given X 3. No special radiology studies were completed. Property :Personal belongings accompany Pt. 21:22 Discharge ordered by Provider. ke 21:45 Patient left the ED. jp6 Signatures: Dispatcher [employer] EDMS Abena Vickers, Reg Reg gb Burak Gimenez, POLYMER CHEMIST POLYMER CHEMIST Trino Dia Kristopher, POULTRY HANGER POULTRY HANGER kb5 Marni Chirinos, RN RN [facility] jml1 [place],RT RT rs5 Nanette Solorio, POULTRY HANGER POULTRY HANGER elp Marni Mckeon,RN RN jp6 Corrections: (The following items were deleted from the chart) 19:54 18:41 Allergies: no known allergies; irina jp6 Chart Complete MTDD
== END 2016-03-28 21:45 | disposition home or self-care (01) ==
LOC: M ED 18:28
DX: J18.9 Pneumonia, unspecified organism (principal); J45.909 Unspecified asthma, uncomplicated; Z85.47 Personal history of malignant neoplasm of testis; Z86.718 Personal history of other venous thrombosis and embolism; Z79.899 Other long term (current) drug therapy; Z79.01 Long term (current) use of anticoagulants; Z79.51 Long term (current) use of inhaled steroids
CPT/HCPCS: 36415; 71010; 80048; 82550; 82553; 82803; 83880; 84484; 85025; 85379; 85610; 87804; 93005; 93041; 94640; 96374; 99285; J2930

== ENCOUNTER 2016-04-13 09:53 | Inpatient (IN) | payer OTHER ==
[~2016-04-13] VITALS: Ht 190.5 cm; Wt 151.8 kg
[2016-04-13] MEDS ORDERED: methylPREDNISolone INJ 125 MG/2 ML VIAL (J2930) As Ordered ONE (10:35)
[2016-04-13 10:58] LABS: ABG BASE EXCESS -3.5 (-2.0-2.0); ABG DEVICE NASAL CANN; ABG HCO3 21.2 MEQ/L (22.0-26.0); ABG PARTIAL PRESSURE CO2 37.3 mmHg (35.0-45.0); ABG PARTIAL PRESSURE O2 99.8 mmHg (75.0-100.0); ABG STANDARD HCO3 21.6 MEQ/L (22.0-26.0); ABG TOTAL CO2 22.4 MEQ/L (23.0-31.0); ABG pH (ARTERIAL) 7.373 UNITS (7.350-7.450)
[2016-04-13 10:59] LABS: BASO % 0.5 % (0.0-1.0); EOS # 0.1 K/mm3 (0.0-0.50); EOS % 1.1 % (0.0-3.0); LARGE UNSTAINED CELL # 0.1 K/mm3 (0.0-0.4); LARGE UNSTAINED CELL % 1.1 % (0.0-4.0); LYMPH # 1.2 K/mm3 (1.5-4.5); LYMPH % 13.4 % (24.0-44.0); MEAN CORPUSCULAR HEMOGLOBIN 30.7 pg (27.0-33.0); MEAN CORPUSCULAR HGB CONC 32.5 g/dl (32.0-36.5); MEAN CORPUSCULAR VOLUME 94.4 fl (80.0-96.0); MONO # 0.4 K/mm3 (0.0-0.8); MONO % 5.4 % (0.0-5.0); NEUTROPHILS # 6.3 K/mm3 (1.8-7.7); NEUTROPHILS % 78.5 % (36.0-66.0); PLATELET COUNT, AUTOMATED 160 k/mm3 (150-450); RED CELL DISTRIBUTION WIDTH 12.8 % (11.5-14.5); WHITE BLOOD COUNT 8.1 K/mm3 (4.0-10.0)
--- NOTE | 2016-04-13 10:59 | REP ---
Chest one-view HISTORY: Shortness of breath Comparison: 03/28/2016 Linear density is present in the left lower lobe consistent with atelectasis or scar. The right lung is clear. The heart is normal in size. The pulmonary vasculature is normal in appearance. Impression: Left lower lobe atelectasis or scar. Signed by Cale Mcintyre MD 04/13/2016 10:51 A
[2016-04-13 11:09] LABS: ANION GAP 8 MEQ/L (8-16); BLOOD UREA NITROGEN 42 MG/DL (7-18); CALCIUM LEVEL 7.9 MG/DL (8.8-10.2); CARBON DIOXIDE LEVEL 30 MEQ/L (21-32); CHLORIDE LEVEL 101 MEQ/L (98-107); CREATININE FOR GFR 3.88 MG/DL (0.70-1.30); GLUCOSE, FASTING 100 MG/DL (80-110); SODIUM LEVEL 139 MEQ/L (136-145)
[2016-04-13 11:30] LABS: POTASSIUM SERUM 5.2 MEQ/L (3.5-5.1)
[2016-04-13] MEDS ORDERED: ALLO100T PO (12:28)
[2016-04-13] MEDS ORDERED: GABA-279 PO (12:28)
[2016-04-13] MEDS ORDERED: SPIR25TA2 PO (12:28)
[2016-04-13] MEDS ORDERED: ATOR40TA PO (12:28)
[2016-04-13] MEDS ORDERED: LISI-538 PO (12:28)
[2016-04-13] MEDS ORDERED: CARV25TA PO (12:28)
[2016-04-13] MEDS ORDERED: IPRASOL4 INH (12:28)
[2016-04-13] MEDS ORDERED: COLC1TAB13 PO (12:28)
[2016-04-13] MEDS ORDERED: VITA20008 PO (12:29)
[2016-04-13] MEDS ORDERED: SYMB80INH INH (12:30)
--- NOTE | 2016-04-13 12:30 | REP ---
Clinical: Chest pain and cough. Comparison: 05/14/2014. Findings: Linear chronic-appearing fibroatelectatic changes in the right middle lobe and left lower lobe identified. The lung oro are otherwise relatively well aerated and without further consolidation, nodule or mass lesion. No pleural effusion/reaction or pneumothorax. Tracheobronchial tree is patent. Mediastinum demonstrates atherosclerotic changes to the coronary arteries and thoracic aorta without aneurysm or pericardial effusion. No axillary, hilar, or mediastinal adenopathy. Musculoskeletal structures demonstrate age-related changes without focal osseous abnormality. Upper abdomen demonstrates normal bilateral adrenal glands. Impression: Linear chronic-appearing fibroatelectatic changes in the right middle lobe and left base. No further acute mediastinal or pleuroparenchymal process appreciated. Signed by Fred Bill MD 04/13/2016 12:22 P
[2016-04-13] MEDS ORDERED: ALBUTEROL 90 MCG/ACT 8GM HFA INHALER INH PRN (13:15)
[2016-04-13] MEDS ORDERED: ALBUTEROL SULFATE 2.5 MG/0.5 ML INH NEB SOLN NEB PRN (13:15)
[2016-04-13 13:29] VITALS: BP 110/58
[2016-04-13] MEDS ORDERED: OXAZEPAM 10 MG CAP PO PRN (13:30)
--- NOTE | 2016-04-13 14:42 | HPE ---
DATE OF ADMISSION: 04/13/2016 [facility]IMARY CARE PROVID[facility] HISTORY OF PRESENT ILLNESS: This patient is a 60-year-old male with a past medical history significant for atrial fibrillation, gout, testicular cancer, asthma, deep vein thrombosis (DVT), morbid obesity, coronary artery disease, cor pulmonale, pulmonary hypertension, presenting to [facility] with severe hypotension. Patient started having shortness of breath since March 24, and patient came to [facility] Emergency Room on March 28. Patient was diagnosed with pneumonia. Patient was discharged home with Levaquin, 10-day course. In the past few days, patient has been complaining about some chest pain, lightheadedness, and a few near-syncope episodes. Patient continued to cough with intermittent sputum production. Patient followed with the [facility] on 04/13/2016. In the clinic patient was found to have extremely low blood pressure, 56/30, and patient instructed to come the hospital immediately. In the emergency room, patient's blood pressure continued to remain very soft with a blood pressure of 66/32. One liter of normal saline bolus and the hospitalist team was called for admission. ALLERGIES: No known drug allergies. HOME MEDICATIONS: - Ventolin 2 puff inhalation four times a day as needed - allopurinol 200 mg by mouth daily - Eliquis 5 mg by mouth twice a day - atorvastatin 40 mg by mouth daily - Symbicort two puff inhalation twice a day - carvedilol 25 mg by mouth twice a day - vitamin D3 at 2000 units by mouth daily - Colchicine 1.2 mg by mouth as needed for gout flares - Lasix 160 mg by mouth twice a day - gabapentin 400 mg by mouth at bedtime - lisinopril 20 mg by mouth daily - magnesium oxide 400 mg by mouth twice a day - potassium chloride 40 mEq by mouth twice a day - spironolactone 25 mg by mouth twice a day - Spiriva 18 mcg inhalation daily PAST MEDICAL HISTORY: 1. Bilateral pulmonary embolism diagnosed since April 2014, on Eliquis and status post inferior vena cava (IVC) filter. 2. Hyperlipidemia. 3. Pulmonary hypertension. 4. Atrial fibrillation, on Eliquis. 5. History of nonsustained ventricular tachycardia (VT). 6. Obstructive sleep apnea (ИВАН), on continuous positive airway pressure (CPAP). 7. History of benign colon cancer. 8. Asthma. 9. Coronary artery disease status post heart catheterization. 10. Cor pulmonale. 11. History of testicular cancer of right testicle, status post surgical removal. 12. Alcohol abuse. PAST SURGICAL HISTORY: 1. Heart catheterization in 2008. 2. Right orchiectomy of right testicle for testicular cancer. 3. Hernia repair. 4. IVC filter in April 2014. SOCIAL HISTORY: Patient used to smoke intermittently before. Quit 20-30 years ago. Patient continued to drink two beers on a daily basis. Denies any recreational drug use. REVIEW OF SYSTEMS: GENERAL: No fever. No chills. HEENT: No vision change. No auditory changes. CARDIOVASCULAR: Frequent lightheadedness and multiple near-syncope episodes. Complained about chest pain, left side intermittently without any significant triggers. RESPIRATORY: Was diagnosed with pneumonia on March 28, status post one course of Levaquin. Continues to have cough for the past few days with intermittent colored sputum. GASTROINTESTINAL: No nausea. No vomiting. No abdominal pain. MUSCULOSKELETAL: History of gout. Currently no muscle or joint pain. NEUROLOGIC: No numbness. No tingling. OBJECTIVE: VITAL SIGNS: Most recent blood pressure is 88/63, pulse is 66, respirations 18, temperature 97, pulse oximetry is 93% with 2 liters nasal cannula. Weight is 147.42 kg, body height is 190.5 cm. GENERAL: Fatigued, pale, alert and oriented times three. HEENT: Normocephalic, atraumatic. Extraocular motor grossly intact. CARDIOVASCULAR: Very distant heart sounds. Irregularly irregular. Heart rate running between 60-80s. RESPIRATORY: Diminished breath sounds. No wheezes or rhonchi. ABDOMEN: Morbidly obese, soft, nontender, nondistended. EXTREMITIES: No edema. No sign of cyanosis. NEUROLOGIC: Sensation to fine touch grossly intact. Muscle strength 5/5. LABORATORY DATA: WBC 8.1, hemoglobin 13.2, hematocrit 40.6, platelet count is 160. Sodium is 139, potassium 5.2, chloride is 101, carbon dioxide 30, BUN 42, creatinine 3.88, GFR is 17, fasting glucose is 100, lactic acid 1.2, calcium 7.9. Total CK is 47. Troponin I is less than 0.02. BNP is 52.5. ABG showed pH of 7.373, pCO2 is 37.3, pO2 is 99.8, HCO3 is 21.2. Microbiology: Blood cultures pending times two. IMAGING STUDIES: CT of the chest without contrast showed linear, chronic-appearing fibroatelectatic changes in the right middle lobe and left base. No further acute mediastinal or pleural parenchymal process. ASSESSMENT AND PLAN: 1. Severe hypotension. Patient will be admitted to the progressive care unit (PCU) under inpatient status. Patient will continue to receive fluid resuscitation for this moment. Patient's hypotension most likely related to dehydration. Will hold the patient's blood pressure medication for now. 2. Acute renal failure. One 03/26/2016, patient had a creatinine of 1.3 with a glomerular filtration rate (GFR) of 60. Today patient presented with a creatinine of 3.88 with a GFR 17. Due to severe dehydration versus medication-induced renal failure, we will follow with renal function after the fluid resuscitation. The traffic incident management manager, Dr. Sauer, has been informed. 3. Atrial fibrillation. Currently running in the satisfactory range. Patient is on Eliquis. 4. Hypertension. Currently has severe hypotension. All the blood pressure medication will be on hold. 5. Bilateral pulmonary embolism, on Eliquis. Patient has inferior vena cava (IVC) filter. 6. History of pulmonary hypertension. Lasix will be on hold at this moment due to the hypotension. 7. Hyperlipidemia, on atorvastatin. 8. Obstructive sleep apnea (ИВАН). Patient may use his own continuous positive airway pressure (CPAP). 9. History of right testicular cancer, status post orchiectomy. 10. Alcohol abuse. Patient will have Serax as needed. 11. History of cor pulmonale. 12. History of coronary artery disease. 13. Asthma. 14. Deep vein thrombosis (DVT) prophylaxis, on Eliquis.
[2016-04-13] MEDS: NS 1,000 ML IV SCH (16:06)
[2016-04-13 16:50] VITALS: BP 94/49
[2016-04-13 18:30] LABS: CREATININE FOR GFR 3.05 MG/DL (0.70-1.30); GLOMERULAR FILTRATION RATE 22.4 (>49)
[2016-04-13 18:39] LABS: POTASSIUM SERUM 5.4 MEQ/L (3.5-5.1)
[2016-04-13 19:50] VITALS: BP 109/59
[2016-04-13 20:23] VITALS: BP 112/57
--- NOTE | 2016-04-13 20:53 | EDDOCDS ---
Nurse's Notes [facility] Name: Terell Mujica Age: 60 yrs Sex: Male : 1955 Arrival Date: 04/13/2016 Time: 09:53 Bed 21 Private MD: [facility], [place] Diagnosis: Hypotension;Acute kidney failure-likely due to Avel[place] Presentation: 04/13 10:04 Presenting complaint: Patient states: WAS AT THE [facility] CLINIC FOR A FOLLOW UP PNEUMINIA mk4 VISIT AND THEY NOTICED HIS B/P WAS LOW, PT states he has been having trouble breathing since 03/28 diagnosed with pnuemonia , pasin left scapula area rad around to left axilla, pt states pain left axilla only now. Adult Sepsis Screening: The patient does not have new or worsening altered mentation. Patient's respiratory rate is less than 22. Systolic blood pressure is less than or equal to 100 (1 point). Patient has a qSOFA score of 1- Negative Sepsis Screen. Suicide/Homicide risk assessment- the patient denies having any suicidal and/or homicidal ideations and does not present with any other emotional, behavioral or mental health complaints. Status: Patient is not a liquid fertilizer servicer or dependent. Transition of care: patient was received from a primary care office; mt clinic. 10:04 Acuity: PATTI Level 2 mk4 10:04 Method Of Arrival: Ambulance 4 Historical: - Allergies: no known allergies; - Home Meds: 1. albuterol sulfate 2.5 mg /3 mL (0.083 %) Inhl nebu prn (Last dose: 04/13/2016 07:00) 2. albuterol sulfate 90 mcg/actuation Inhl aepb 1 puff every 4-6 hours (Last dose: 04/13/2016 07:00) 3. allopurinol 100 mg Oral tab 2 tabs once daily (Last dose: 04/13/2016 07:00) 4. atorvastatin 40 mg oral tab once daily (Last dose: 04/13/2016 07:00) 5. budesonide-formoterol 80-4.5 mcg/actuation inhalation HFAA 2 times per day (Last dose: 04/13/2016 07:00) 6. carvedilol 25 mg oral tab 2 times per day (Last dose: 04/13/2016 07:00) 7. lisinopril 20 mg Oral tab once daily (Last dose: 04/13/2016 07:00) 8. magnesium oxide 400 mg Oral cap twice a day (Last dose: 04/13/2016 07:00) 9. potassium chloride 10 mEq Oral cpER 2 caps 2 times per day (Last dose: 04/13/2016 07:00) 10. spironolactone 50 mg oral tab .5 tab 2 times per day (Last dose: 04/13/2016 07:00) 11. tiotropium bromide 18 mcg inhalation CpDv once daily (Last dose: 04/13/2016 07:00) 12. Eliquis 5 mg oral tab 1 tab 2 times per day (Last dose: 04/13/2016 07:00) 13. Lasix 80 mg Oral tab 2 tabs 2 times per day (Last dose: 04/13/2016 07:00) 14. colchicine 0.6 mg oral cap as needed for Gout - PMHx: Asthma; Cancer, Testicular- Right; DVT; Pneumonia; Atrial Fib; Gout; Hypertension; Hypercholesterolemia; hypokalemia; morbid obesity; - PSHx: , right orchiectomy testicular cancer; Heart catherization; Enrique Filter Placement; Hernia repair- Left inguinal; - The history from nurses notes was reviewed: and I agree with what is documented. - Social history: Smoking status: Patient states was never smoker of tobacco. No barriers to communication noted, The patient speaks fluent Czech. - Family history: Not pertinent. - : The pt / caregiver states he / she is on anticoagulants: Eliquis Home medication list is obtained from the patient. - Hospitalizations: : No recent hospitalization is reported. - Exposure Risk Screening:: None identified. - Immunization history:: All immunizations up-to-date. - Social history:: the patient is a non-smoker, the patient does not drink alcohol. Screenin:56 Screening information is obtained from the patient. Fall risk: No risks identified. mk4 Assistance ADL's: requires no assistance with activities of daily living. Abuse/DV Screen: The patient / caregiver reports he/she is: not in a situation that causes fear, pain or injury. Nutritional screening: No deficits noted. home support is adequate. Assessment: 10:49 General: Appears in no apparent distress, comfortable, Behavior is cooperative. Pain: mk4 Location: left axilla area Pain currently is 4 out of 10 on a pain scale. Cardiovascular: Rhythm is irregular. Respiratory: Airway is patent Respiratory effort is even, unlabored, Respiratory pattern is regular, Reports shortness of breath labored breathing since a few weeks ago. 10:54 General: hypotension reported to Dr Fuller. Neurological: Level of Consciousness is mk4 awake, alert. Respiratory: Breath sounds are clear bilaterally. the patient has moderate shortness of breath. Derm: Skin is intact, is healthy with good turgor, Skin is pink, warm & dry. 11:04 General: Appears in no apparent distress, comfortable, Behavior is cooperative. Pain: mk4 Location: left axilla Pain currently is 4 out of 10 on a pain scale. 11:31 General: Appears in no apparent distress, comfortable, obese, Behavior is appropriate ms18 for age, cooperative. Pain: Location: left lateral anterior chest and left lateral posterior chest Pain currently is 5 out of 10 on a pain scale. Neurological: No deficits noted. Cardiovascular: Rhythm is irregular. Respiratory: Airway is patent Respiratory effort is even, unlabored. Derm: Skin is pink, warm & dry. 12:32 General: Pt in no acute distress. Will continue to monitor pt. ms18 13:34 General: Appears in no apparent distress, comfortable, Behavior is appropriate for age, ms18 cooperative, Awaiting bed assignment at this time. Will continue to monitor pt. Neurological: No deficits noted. Derm: Skin is pink, warm & dry. 14:25 General: Pt in no acute distress. Will continue to monitor pt. ms18 15:17 General: Appears in no apparent distress, comfortable, obese, Behavior is appropriate ms18 for age, cooperative, pleasant. General: Pt moved to room 21 and is in no acute distress at this time. . Neurological: No deficits noted. Respiratory: Airway is patent Respiratory effort is even, unlabored, Respiratory pattern is regular. Derm: Skin is pink, warm & dry. Vital Signs: 10:01 BP 112 / 52 (auto/); mk4 10:02 BP 85 / 51; Pulse 60; Resp 18; Temp 97.0(O); Pulse Ox 96% on 4 lpm NC; Weight 147.42 kg nb2 (R); Height 6 ft. 3 in. (190.50 cm) (R); Pain 4/10; 10:02 Pulse 74 MON; Pulse Ox 97% ; mk4 10:16 BP 102 / 60 (auto/); mk4 10:16 Pulse 68 MON; Pulse Ox 96% ; mk4 10:30 Pulse 66 MON; Pulse Ox 95% ; mk4 10:31 BP 66 / 32 (auto/); mk4 10:38 Pulse 66 MON; Pulse Ox 95% ; mk4 10:38 BP 70 / 39 (auto/); mk4 10:46 BP 83 / 44 (auto/); mk4 10:46 Pulse 64 MON; Pulse Ox 96% on 2 lpm NC; mk4 10:54 BP 94 / 52 (auto/); mk4 10:54 Pulse 62 MON; Pulse Ox 97% ; mk4 11:17 BP 105 / 55 (auto/); ms18 11:19 Pulse 68 MON; Resp 18; Pulse Ox 96% ; ms18 11:46 BP 74 / 50 (auto/); ms18 11:46 Pulse 74 MON; Pulse Ox 95% ; ms18 12:01 Pulse 74 MON; Pulse Ox 96% ; ms18 12:01 BP 73 / 39 (auto/); ms18 12:06 Pulse 72 MON; Pulse Ox 93% ; ms18 12:08 BP 78 / 50 (auto/); ms18 12:16 BP 88 / 63 (auto/); ms18 12:18 Pulse 66 MON; Pulse Ox 93% ; ms18 12:28 Pulse 68 MON; Pulse Ox 94% ; ms18 12:31 BP 85 / 50 (auto/); ms18 12:43 BP 109 / 62 (auto/); ms18 12:44 Pulse 72 MON; Pulse Ox 94% ; ms18 12:46 BP 113 / 61 (auto/); ms18 12:47 Pulse 74 MON; Pulse Ox 95% ; ms18 13:01 BP 109 / 76 (auto/); ms18 13:01 Pulse 72 MON; Pulse Ox 93% ; ms18 13:16 BP 110 / 58 (auto/); ms18 13:16 Pulse 70 MON; Pulse Ox 90% ; ms18 13:31 BP 110 / 62 (auto/); ms18 13:32 Pulse 72 MON; Pulse Ox 93% ; ms18 13:46 BP 107 / 76 (auto/); ms18 13:46 Pulse 86 MON; Pulse Ox 93% ; ms18 13:59 Pulse 68 MON; Pulse Ox 93% ; ms18 14:00 Pulse 72 MON; Pulse Ox 92% ; ms18 14:01 BP 116 / 72 (auto/); ms18 14:14 Pulse 80 MON; Pulse Ox 94% ; ms18 14:15 Pulse 78 MON; Pulse Ox 93% ; ms18 14:16 BP 99 / 63 (auto/); ms18 14:46 BP 114 / 74 (auto/); ms18 14:52 Pulse 80 MON; Pulse Ox 92% ; ms18 10:02 Body Mass Index 40.62 (147.42 kg, 190.50 cm) nb2 10:[address] Fuller orders recieved mk4 Vitals: 10:02 Log In Time N/A - ambulance arrival. nb2 ED Course: 09:54 Patient visited by Abimbola Otero, Project Finance Analyst. lbd 09:54 Patient moved to Waiting lbd 09:55 [facility] [place] is Private Physician. lbd 09:56 Patient moved to lbd 10:02 Placed in gown. Bed in low position. Call light in reach. Side rails up X2. Cardiac nb2 monitor on. Pulse ox on. NIBP on. 10:03 Patient visited by Taryn Eng. nb2 10:06 Triage Initiated mk4 10:10 EKG done. (by ED staff). Reviewed by Ramo Fuller MD. nb2 10:11 Patient visited by Taryn Eng. nb2 10:21 Ramo Fuller MD is Attending Physician. pc 10:32 Patient visited by Ramo Fuller MD. pc 10:42 Lactic Acid (Cedeno tube on ice) Sent. mk4 10:42 -Blood Culture Sent. mk4 10:42 B-Type Natiuretic Peptide Sent. mk4 10:42 Basic Metabolic Profile Sent. mk4 10:42 CBC with Diff Sent. mk4 10:42 Cardiac Injury Profile Sent. mk4 10:42 Troponin Sent. mk4 10:53 -Arterial Blood Gas Sent. kt1 10:56 The patient / caregiver is instructed regarding the plan of care and ED course. mk4 10:56 Maintain field IV. IV Flushed left antecubital saline lock. O2 via nasal cannula \T\ mk4 2L/min. 11:03 Patient visited by Ligia Fofana RN. mk4 11:12 Chest, 1 View Returned. EDMS 11:19 Property :Personal belongings accompany Pt. ms18 11:30 Marlin AzulRN is Primary Nurse. ms18 11:31 Patient visited by Marlin Azul RN. ms18 12:21 Patient visited by Marlin Azul,NIR. ms18 12:26 PippademetriJessie district director. ys2 12:30 CT Chest Without Contrast Returned. EDMS 12:38 PippademetriJessie is Hospitalizing Provider. pc 12:43 Patient name changed from Terell\S\A\S\Yerdon Jr\S\ to Terell\S\A\S\Yerdon. EDMS 12:46 [facility] Payment Agreement was scanned into [employer] and attached to record. lg 15:00 Patient moved to 21 kcs 15:17 Patient visited by Marlin Azul RN. ms18 Administered Medications: 10:38 Drug: Solu-MEDROL 125 mg [Solu-Medrol 500 mg intravenous solution (125 mg)] Route: IVP; dsf Site: left antecubital; 10:49 Drug: NS 0.9% 1000 ml [sodium chloride 0.9 % intravenous solution] Route: IV; Rate: mk4 bolus; Site: left antecubital; 12:21 Follow up: IV Status: Completed infusion; IV Intake: 1000ml ms18 13:47 Drug: NS 0.9% 1000 ml [sodium chloride 0.9 % intravenous solution] Route: IV; Rate: ms18 bolus; Site: left antecubital; 15:18 Follow up: IV Status: Completed infusion; IV Intake: 1000ml ms18 Intake: 10:46 IV: 400.00ml (NS); Total: 400.00ml. mk4 12:21 IV: 1000.00ml; Total: 1400.00ml. ms18 15:18 IV: 1000.00ml; Total: 2400.00ml. ms18 RT: 10:53 ABG's drawn from right radial artery pressure held for 5 minutes no bleeding noted kt1 pressure bandage applied specimen sent pt. tolerated well. Order Results: Lab Order: -Arterial Blood Gas; SPEC'M 04/13/16 10:39 Test: ABG pH (ARTERIAL); Value: 7.373; Range: 7.350-7.450; Units: UNITS; Status: F Test: ABG PARTIAL PRESSURE CO2; Value: 37.3; Range: 35.0-45.0; Units: mmHg; Status: F Test: ABG PARTIAL PRESSURE O2; Value: 99.8; Range: 75.0-100.0; Units: mmHg; Status: F Test: ABG TOTAL CO2; Value: 22.4; Range: 23.0-31.0; Abnormal: Below low normal; Units: MEQ/L; Status: F Test: ABG HCO3; Value: 21.2; Range: 22.0-26.0; Abnormal: Below low normal; Units: MEQ/L; Status: F Test: ABG BASE EXCESS; Value: -3.5; Range: -2.0-2.0; Abnormal: Below low normal; Status: F Test: ABG STANDARD HCO3; Value: 21.6; Range: 22.0-26.0; Abnormal: Below low normal; Units: MEQ/L; Status: F Test: ABG O2 SATURATION; Value: 97.1; Range: 95.0-99.0; Units: %; Status: F Test: ABG DEVICE; Value: NASAL BERT; Status: F Lab Order: B-Type Natiuretic Peptide; SPEC' 04/13/16 10:37 Test: BRAIN NATRIURETIC PEPTIDE; Value: 52.5; Range: <100; Units: PG/ML; Status: F Lab Order: Basic Metabolic Profile; SPEC' 04/13/16 10:37 Test: GLUCOSE, FASTING; Value: 100; Range: 80-110; Units: MG/DL; Status: F Test: BLOOD UREA NITROGEN; Value: 42; Range: 7-18; Abnormal: Above high normal; Units: MG/DL; Status: F Test: CREATININE FOR GFR; Value: 3.88; Range: 0.70-1.30; Abnormal: Above high normal; Units: MG/DL; Status: F Test: GLOMERULAR FILTRATION RATE; Value: 17.0; Range: >49; Abnormal: Below low normal; Status: F Test: SODIUM LEVEL; Value: 139; Range: 136-145; Units: MEQ/L; Status: F Test: POTASSIUM SERUM; Value: 5.2; Range: 3.5-5.1; Abnormal: Above high normal; Units: MEQ/L; Status: F Test: CHLORIDE LEVEL; Value: 101; Range: 98-107; Units: MEQ/L; Status: F Test: CARBON DIOXIDE LEVEL; Value: 30; Range: 21-32; Units: MEQ/L; Status: F Test: ANION GAP; Value: 8; Range: 8-16; Units: MEQ/L; Status: F Test: CALCIUM LEVEL; Value: 7.9; Range: 8.8-10.2; Abnormal: Below low normal; Units: MG/DL; Status: F Test Note: ; Units are mL/min/1.73 m2 Chronic Kidney Disease Staging per NKF: Stage I & II GFR >=60 Normal to Mildly Decreased Stage III GFR 30-59 Moderately Decreased Stage IV GFR 15-29 Severely Decreased Stage V GFR <15 Very Little GFR Left ESRD GFR <15 on BALANCE STAFF INSPECTOR Lab Order: CBC with Diff; SPEC'M 04/13/16 10:37 Test: WHITE BLOOD COUNT; Value: 8.1; Range: 4.0-10.0; Units: K/mm3; Status: F Test: RED BLOOD COUNT; Value: 4.30; Range: 4.30-6.10; Units: M/mm3; Status: F Test: HEMOGLOBIN; Value: 13.2; Range: 14.0-18.0; Abnormal: Below low normal; Units: g/dl; Status: F Test: HEMATOCRIT; Value: 40.6; Range: 42.0-52.0; Abnormal: Below low normal; Units: %; Status: F Test: MEAN CORPUSCULAR VOLUME; Value: 94.4; Range: 80.0-96.0; Units: fl; Status: F Test: MEAN CORPUSCULAR HEMOGLOBIN; Value: 30.7; Range: 27.0-33.0; Units: pg; Status: F Test: MEAN CORPUSCULAR HGB CONC; Value: 32.5; Range: 32.0-36.5; Units: g/dl; Status: F Test: RED CELL DISTRIBUTION WIDTH; Value: 12.8; Range: 11.5-14.5; Units: %; Status: F Test: PLATELET COUNT, AUTOMATED; Value: 160; Range: 150-450; Units: k/mm3; Status: F Test: NEUTROPHILS %; Value: 78.5; Range: 36.0-66.0; Abnormal: Above high normal; Units: %; Status: F Test: LYMPH %; Value: 13.4; Range: 24.0-44.0; Abnormal: Below low normal; Units: %; Status: F Test: MONO %; Value: 5.4; Range: 0.0-5.0; Abnormal: Above high normal; Units: %; Status: F Test: EOS %; Value: 1.1; Range: 0.0-3.0; Units: %; Status: F Test: BASO %; Value: 0.5; Range: 0.0-1.0; Units: %; Status: F Test: LARGE UNSTAINED CELL %; Value: 1.1; Range: 0.0-4.0; Units: %; Status: F Test: NEUTROPHILS #; Value: 6.3; Range: 1.8-7.7; Units: K/mm3; Status: F Test: LYMPH #; Value: 1.2; Range: 1.5-4.5; Abnormal: Below low normal; Units: K/mm3; Status: F Test: MONO #; Value: 0.4; Range: 0.0-0.8; Units: K/mm3; Status: F Test: EOS #; Value: 0.1; Range: 0.0-0.50; Units: K/mm3; Status: F Test: BASO #; Value: 0.0; Range: 0.0-0.2; Units: K/mm3; Status: F Test: LARGE UNSTAINED CELL #; Value: 0.1; Range: 0.0-0.4; Units: K/mm3; Status: F Lab Order: Cardiac Injury Profile; SPEC'M 04/13/16 10:37 Test: CPK CREATINE PHOSPHOKINASE; Value: 47; Range: 39-308; Units: U/L; Status: F Test: CK-MB VALUE MASS; Value: 1.9; Range: 0.0-3.6; Units: NG/ML; Status: F Test: MB/CK RELATIVE INDEX; Value: 4.04; Range: < OR =4; Abnormal: Above high normal; Status: F Test Note: ; DIAGNOSIS CRITERIA MMB ng/ml Relative Index (RI) NON-AMI < or = 5 N/A CEDENO ZONE > 5 < or = 4 AMI > 5 > 4 Lab Order: Troponin; [facility] 04/13/16 10:37 Test: TROPONIN I; Value: < 0.02; Range: < 0.10; Units: NG/ML; Status: F Test Note: ; Troponin I Reference Interval for Welcome Real-time LOCI: 99th Percentile= 0.00-0.045 ng/ml Risk Stratification: <= 0.10 ng/ml Decreased Risk for Adverse Clinical Events. 0.10-1.50 ng/ml Increased Risk for Adverse Clinical Events. Evaluation of additional criterion and/or repeat testing in 2-6 hours is suggested to rule out myocardial damage. >= 1.50 ng/ml Indicative of Myocardial Injury. Lab Order: Lactic Acid (Cedeno tube on ice); [facility] 04/13/16 10:37 Test: LACTIC ACID SEPSIS PROTOCOL; Value: 1.2; Range: 0.4-2.0; Units: MMOL/L; Status: F Lab Order: BASIC METABOLIC PROFILE; [facility] 04/13/16 17:36 Test: GLUCOSE, FASTING; Value: 146; Range: 80-110; Abnormal: Above high normal; Units: MG/DL; Status: F Test: BLOOD UREA NITROGEN; Value: 42; Range: 7-18; Abnormal: Above high normal; Units: MG/DL; Status: F Test: CREATININE FOR GFR; Value: 3.05; Range: 0.70-1.30; Abnormal: Above high normal; Units: MG/DL; Status: F Test: GLOMERULAR FILTRATION RATE; Value: 22.4; Range: >49; Abnormal: Below low normal; Status: F Test: SODIUM LEVEL; Value: 136; Range: 136-145; Units: MEQ/L; Status: F Test: POTASSIUM SERUM; Value: 5.4; Range: 3.5-5.1; Abnormal: Above high normal; Units: MEQ/L; Status: F Test: CHLORIDE LEVEL; Value: 105; Range: 98-107; Units: MEQ/L; Status: F Test: CARBON DIOXIDE LEVEL; Value: 27; Range: 21-32; Units: MEQ/L; Status: F Test: ANION GAP; Value: 4; Range: 8-16; Abnormal: Below low normal; Units: MEQ/L; Status: F Test: CALCIUM LEVEL; Value: 8.0; Range: 8.8-10.2; Abnormal: Below low normal; Units: MG/DL; Status: F Test Note: ; Units are mL/min/1.73 m2 Chronic Kidney Disease Staging per NKF: Stage I & II GFR >=60 Normal to Mildly Decreased Stage III GFR 30-59 Moderately Decreased Stage IV GFR 15-29 Severely Decreased Stage V GFR <15 Very Little GFR Left ESRD GFR <15 on BALANCE STAFF INSPECTOR 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 The right lung is clear. The heart is normal in size. The pulmonary; vasculature is normal in appearance.; ; Impression: Left lower lobe atelectasis or scar.; ; ; Signed by; Cale Mcintyre MD 04/13/2016 10:51 A; Radiology Order: CT Chest Without Contrast Test: CT Chest Without Contrast REASON FOR EXAMINATION: cough, chest pain, obesity, COPD; Clinical: Chest pain and cough.; ; Comparison: 05/14/2014.; ; Findings:; Linear chronic-appearing fibroatelectatic changes in the right middle lobe and; left lower lobe identified. The lung oro are otherwise relatively well; aerated and without further consolidation, nodule or mass lesion. No pleural; effusion/reaction or pneumothorax. Tracheobronchial tree is patent. Mediastinum; demonstrates atherosclerotic changes to the coronary arteries and thoracic aorta; without aneurysm or pericardial effusion. No axillary, hilar, or mediastinal; adenopathy. Musculoskeletal structures demonstrate age-related changes without; focal osseous abnormality. Upper abdomen demonstrates normal bilateral adrenal; glands.; ; Impression:; Linear chronic-appearing fibroatelectatic changes in the right middle lobe and; left base. No further acute mediastinal or pleuroparenchymal process; appreciated.; ; ; Signed by; Fred Bill MD 04/13/2016 12:22 P; Outcome: 12:38 Decision to Hospitalize by Provider. pc 20:50 Admitted to PCU accompanied by nurse, on monitor, with chart, Other see all [place] documentation in [facility]. Condition: stable. 20:52 Patient left the ED. [place] Signatures: Dispatcher [employer] EDRamo Anderson MD MD pc Sleeman, Clarita, RN RN kcs Abimbola Otero, Project Finance Analyst Unit lbd Arron, Jannet Shore, RN RN Tavo Pozo, Yvan Reg lg Linda Smith kt1 Libby AdlerRN RN Ligia Rod RN RN mk4 Marlin AzulRN RN ms18 Anderson Roman 2 Taryn Eng2 Corrections: (The following items were deleted from the chart) 10:31 10:17 Allergies: atrial fib; mk4 mk4 10:55 10:38 BP 70 / 39 Auto; mk4 mk4 MTDD
--- NOTE | 2016-04-13 20:53 | EDDOCDS ---
Physician Documentation [facility] Name: Terell Mujica Age: 60 yrs Sex: Male : 1955 Arrival Date: 04/13/2016 Time: 09:53 Bed 21 Private MD: [facility] Disposition: 04/13 12:35 Critical Care:. pc Disposition: 04/13/16 12:38 Hospitalization ordered by Jessie Barron for Inpatient Admission. Preliminary diagnosis are Hypotension, Acute kidney failure - likely due to Avelox. - Bed requested for PCU. - Status is Inpatient Admission. rosanna - Condition is Stable. - Problem is new. - Symptoms have improved. HPI: 11:29 This 60 yrs old Male presents to ER via Ambulance with complaints of Blood pc Pressure Problem. 11:29 The history is obtained from the patient. He was seen here 2 weeks ago for a cough and pc was diagnosed with pneumonia, with normal labs and CXR. He was sent homeo n ABX and did not feel he was improving. He was seen at his PCP today for a 2 week hospital follow up and was found to be hypotensive, feeling dizzy when he stands. He denies any fevers, sputum production, black stools, chest pain. At their worst, the symptoms were moderate. In the emergency department, the symptoms are mild. The patient has not experienced similar symptoms in the past. Historical: - Allergies: no known allergies; - Home Meds: 1. albuterol sulfate 2.5 mg /3 mL (0.083 %) Inhl nebu prn (Last dose: 04/13/2016 07:00) 2. albuterol sulfate 90 mcg/actuation Inhl aepb 1 puff every 4-6 hours (Last dose: 04/13/2016 07:00) 3. allopurinol 100 mg Oral tab 2 tabs once daily (Last dose: 04/13/2016 07:00) 4. atorvastatin 40 mg oral tab once daily (Last dose: 04/13/2016 07:00) 5. budesonide-formoterol 80-4.5 mcg/actuation inhalation HFAA 2 times per day (Last dose: 04/13/2016 07:00) 6. carvedilol 25 mg oral tab 2 times per day (Last dose: 04/13/2016 07:00) 7. lisinopril 20 mg Oral tab once daily (Last dose: 04/13/2016 07:00) 8. magnesium oxide 400 mg Oral cap twice a day (Last dose: 04/13/2016 07:00) 9. potassium chloride 10 mEq Oral cpER 2 caps 2 times per day (Last dose: 04/13/2016 07:00) 10. spironolactone 50 mg oral tab .5 tab 2 times per day (Last dose: 04/13/2016 07:00) 11. tiotropium bromide 18 mcg inhalation CpDv once daily (Last dose: 04/13/2016 07:00) 12. Eliquis 5 mg oral tab 1 tab 2 times per day (Last dose: 04/13/2016 07:00) 13. Lasix 80 mg Oral tab 2 tabs 2 times per day (Last dose: 04/13/2016 07:00) 14. colchicine 0.6 mg oral cap as needed for Gout - PMHx: Asthma; Cancer, Testicular- Right; DVT; Pneumonia; Atrial Fib; Gout; Hypertension; Hypercholesterolemia; hypokalemia; morbid obesity; - PSHx: , right orchiectomy testicular cancer; Heart catherization; Calvin Filter Placement; Hernia repair- Left inguinal; - The history from nurses notes was reviewed: and I agree with what is documented. - Social history: Smoking status: Patient states was never smoker of tobacco. No barriers to communication noted, The patient speaks fluent Citizen [place]. - Family history: Not pertinent. - : The pt / caregiver states he / she is on anticoagulants: Eliquis Home medication list is obtained from the patient. - Hospitalizations: : No recent hospitalization is reported. - Exposure Risk Screening:: None identified. - Immunization history:: All immunizations up-to-date. - Social history:: the patient is a non-smoker, the patient does not drink alcohol. ROS: 11:29 All systems are negative except as listed. pc Exam: 11:29 General Appearance: no acute distress, alert. pc 11:29 EENT: normal eye inspection, ears, nose and throat normal, pharynx normal, mucous membranes moist 11:29 Neck: The exam reveals no acute abnormalities. ROM is normal and painless. No nuchal rigidity is noted.. 11:29 Respiratory: no respiratory distress, normal breath sounds. 11:29 CVS: regular pulse rate, regular rhythm, normal S1 and S2, no murmurs, strong peripheral pulses, normal capillary refill. 11:29 Abdomen: soft, non-tender, no organomegaly, normal bowel sounds. 11:29 Back: normal inspection. 11:29 Skin: skin color is normal, warm, dry. 11:29 Extremities: The extremities have a grossly normal appearance, are non-tender, without acute ROM abnormalities. 11:29 Neuro: oriented x 3, cranial nerves normal as tested, no motor deficits, no sensory deficits. 11:29 Psych: normal mood. Vital Signs: 10:01 BP 112 / 52 (auto/); mk4 10:02 BP 85 / 51; Pulse 60; Resp 18; Temp 97.0(O); Pulse Ox 96% on 4 lpm NC; Weight 147.42 kg nb2 / 325.01 lbs (R); Height 6 ft. 3 in. (190.50 cm) (R); Pain 4/10; 10:02 Pulse 74 MON; Pulse Ox 97% ; mk4 10:16 BP 102 / 60 (auto/); mk4 10:16 Pulse 68 MON; Pulse Ox 96% ; mk4 10:30 Pulse 66 MON; Pulse Ox 95% ; mk4 10:31 BP 66 / 32 (auto/); mk4 10:38 Pulse 66 MON; Pulse Ox 95% ; mk4 10:38 BP 70 / 39 (auto/); mk4 10:46 BP 83 / 44 (auto/); mk4 10:46 Pulse 64 MON; Pulse Ox 96% on 2 lpm NC; mk4 10:54 BP 94 / 52 (auto/); mk4 10:54 Pulse 62 MON; Pulse Ox 97% ; mk4 11:17 BP 105 / 55 (auto/); ms18 11:19 Pulse 68 MON; Resp 18; Pulse Ox 96% ; ms18 11:46 BP 74 / 50 (auto/); ms18 11:46 Pulse 74 MON; Pulse Ox 95% ; ms18 12:01 Pulse 74 MON; Pulse Ox 96% ; ms18 12:01 BP 73 / 39 (auto/); ms18 12:06 Pulse 72 MON; Pulse Ox 93% ; ms18 12:08 BP 78 / 50 (auto/); ms18 12:16 BP 88 / 63 (auto/); ms18 12:18 Pulse 66 MON; Pulse Ox 93% ; ms18 12:28 Pulse 68 MON; Pulse Ox 94% ; ms18 12:31 BP 85 / 50 (auto/); ms18 12:43 BP 109 / 62 (auto/); ms18 12:44 Pulse 72 MON; Pulse Ox 94% ; ms18 12:46 BP 113 / 61 (auto/); ms18 12:47 Pulse 74 MON; Pulse Ox 95% ; ms18 13:01 BP 109 / 76 (auto/); ms18 13:01 Pulse 72 MON; Pulse Ox 93% ; ms18 13:16 BP 110 / 58 (auto/); ms18 13:16 Pulse 70 MON; Pulse Ox 90% ; ms18 13:31 BP 110 / 62 (auto/); ms18 13:32 Pulse 72 MON; Pulse Ox 93% ; ms18 13:46 BP 107 / 76 (auto/); ms18 13:46 Pulse 86 MON; Pulse Ox 93% ; ms18 13:59 Pulse 68 MON; Pulse Ox 93% ; ms18 14:00 Pulse 72 MON; Pulse Ox 92% ; ms18 14:01 BP 116 / 72 (auto/); ms18 14:14 Pulse 80 MON; Pulse Ox 94% ; ms18 14:15 Pulse 78 MON; Pulse Ox 93% ; ms18 14:16 BP 99 / 63 (auto/); ms18 14:46 BP 114 / 74 (auto/); ms18 14:52 Pulse 80 MON; Pulse Ox 92% ; ms18 10:02 Body Mass Index 40.62 (147.42 kg, 190.50 cm) nb2 10:[address] Fuller orders recieved mk4 MDM: 10:05 ECG WITH READING ER PHYS+CARDIAG ordered. EDMS 10:30 Solu-MEDROL 125 mg IVP once ordered. pc 10:30 -Blood Culture (Adults Only), peripheral from different site, or from device/port/PICC pc etc. if present ordered. 10:30 Call Respiratory ordered. pc 10:30 Bobbin Drier/Pulse Ox/q 15 min VS ordered. pc 10:30 IV Saline Lock ordered. pc 10:30 Oxygen at 4L/Min NC or Home dosage ordered. pc 10:30 Rhythm Strip to chart ordered. pc 10:30 -Arterial Blood Gas Ordered. EDMS 10:30 -Blood Culture Ordered. EDMS 10:30 B-Type Natiuretic Peptide Ordered. EDMS 10:30 Basic Metabolic Profile Ordered. EDMS 10:30 CBC with Diff Ordered. EDMS 10:30 Cardiac Injury Profile Ordered. EDMS 10:30 Troponin Ordered. EDMS 10:31 Chest, 1 View Ordered. EDMS 10:37 NS 0.9% 1000 ml IV at bolus once ordered. pc 10:37 IV Saline Lock ordered. pc 10:38 Lactic Acid (Cedeno tube on ice) Ordered. EDMS 10:39 Call Respiratory complete. dsf 10:59 -Blood Culture (Adults Only), peripheral from different site, or from device/port/PICC lbd etc. if present complete. 11:02 BLOOD CULTURES Ordered. EDMS 11:09 Test interpretation: EKG. pc 11:10 Financial registration complete. lg 11:10 -Arterial Blood Gas Reviewed. pc 11:10 CBC with Diff Reviewed. pc 11:10 Lactic Acid (Cedeno tube on ice) Reviewed. pc 11:29 Differential Diagnosis: hypotension without obvious cause; COPD. Plan: labs, EKG, CXR, pc IVF. 11:40 Basic Metabolic Profile Reviewed. pc 11:40 Cardiac Injury Profile Reviewed. pc 11:40 Troponin Reviewed. pc 11:40 Chest, 1 View Reviewed. pc 11:43 BED REQUEST+ADM ordered. EDMS 11:53 CT Chest Without Contrast Ordered. EDMS 12:17 B-Type Natiuretic Peptide Reviewed. pc 12:35 Data reviewed: old medical records, vital signs, nurses notes, EKG(s), lab test pc results, all radiology studies and available results. Test interpretation: LAB - all labs as ordered have been reviewed, interpreted and considered in the overall management of the clinical presentation; Arterial blood gas is normal. X-RAY - interpreted by Radiologist and personally reviewed, 1 view chest no acute disease. The patient has been re-examined and re-evaluated. The patient's symptoms have markedly improved after treatment, with his BP 110/52. Physician consultation: Dr. Jessie Barron regarding admission. Disposition: The historical points, examination findings, and any diagnostic results supporting the provided diagnosis, were discussed with the patient or legal guardian. The need for further work-up and/or treatment in the hospital was explained. 12:46 [facility] [place] [place] Payment Agreement was scanned into [employer] and attached to record. lg 13:03 Admission / Observation Status ordered. EDMS 13:03 2 GRAM SODIUM DIET ordered. EDMS 13:32 BASIC METABOLIC PROFILE Ordered. EDMS 13:35 NS 0.9% 1000 ml IV at bolus once ordered. pc 19:32 COMPLETE BLOOD COUNT Ordered. EDMS 19:32 BASIC METABOLIC PROFILE Ordered. EDMS EC:09 Rate is 79 beats/min. Rhythm is irregularly irregular, A fib. QRS Elmer is Normal. WA pc interval is normal. QRS interval is normal. QT interval is normal. Q waves are Old in leads III, aVF. T waves are Normal. No ST changes noted. Clinical impression: Atrial Fibrillation w/o RVR and Inferior ID - age indeterminate. No change from previous ECG in February,. Administered Medications: 10:38 Drug: Solu-MEDROL 125 mg [Solu-Medrol 500 mg intravenous solution (125 mg)] Route: IVP; dsf Site: left antecubital; 10:49 Drug: NS 0.9% 1000 ml [sodium chloride 0.9 % intravenous solution] Route: IV; Rate: mk4 bolus; Site: left antecubital; 12:21 Follow up: IV Status: Completed infusion; IV Intake: 1000ml ms18 13:47 Drug: NS 0.9% 1000 ml [sodium chloride 0.9 % intravenous solution] Route: IV; Rate: ms18 bolus; Site: left antecubital; 15:18 Follow up: IV Status: Completed infusion; IV Intake: 1000ml ms18 Critical Care Time: 12:35 Critical care time: Bedside Care: 20 minutes, Consultation: 10 minutes. Total time: 30 pc minutes Signatures: Dispatcher [employer] EDMI Ramo Fuller MD MD pc Daly, Linda, Educational Therapist Unit lbd Jannet Heller RN Tavo Stephens, Yvan Reg lg Libby Adler RN RN dsf King, Margaret, RN RN [facility] Michael Melendez RN RN mts Smith, Mallory RN [id number] The chart was reviewed and I authenticate all verbal orders and agree with the evaluation and treatment provided.Corrections: (The following items were deleted from the chart) 10:31 10:17 Allergies: atrial fib; mk4 mk4 Attachments: 12:46 [facility] Payment Agreement lg MTDD
[2016-04-13] MEDS: APIXABAN 5 MG TAB (ELIQUIS) PO SCH (21:15)
[2016-04-13] MEDS: GABAPENTIN 100 MG CAP PO SCH (21:15)
[2016-04-13] MEDS: MAGNESIUM OXIDE 400 MG TAB (MAG-OX) PO SCH (21:15)
[2016-04-13] MEDS: SYMBICORT 80/4.5MCG INHALER 6GM INH SCH (22:17)
[2016-04-13 23:56] VITALS: BP 118/48
[2016-04-14] MEDS: NS 1,000 ML IV SCH ×3 (01:34→15:52)
[2016-04-14 04:48] VITALS: BP 92/48
[2016-04-14 05:47] LABS: MEAN CORPUSCULAR HEMOGLOBIN 31.4 pg (27.0-33.0); MEAN CORPUSCULAR HGB CONC 32.8 g/dl (32.0-36.5); MEAN CORPUSCULAR VOLUME 95.7 fl (80.0-96.0); WHITE BLOOD COUNT 8.4 K/mm3 (4.0-10.0)
[2016-04-14 05:48] LABS: CALCIUM LEVEL 7.9 MG/DL (8.8-10.2); CREATININE FOR GFR 2.41 MG/DL (0.70-1.30); GLOMERULAR FILTRATION RATE 29.4 (>49)
[2016-04-14 05:55] LABS: POTASSIUM SERUM 5.5 MEQ/L (3.5-5.1)
[2016-04-14 07:30] VITALS: BP 118/56
[2016-04-14] MEDS: SYMBICORT 80/4.5MCG INHALER 6GM INH SCH ×2 (07:49→21:13)
[2016-04-14] MEDS: TIOTROPIUM INHALER/CAPSULE (SPIRIVA) INH SCH (07:49)
--- NOTE | 2016-04-14 08:06 | ECGEPIP ---
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
[2016-04-14] MEDS: MAGNESIUM OXIDE 400 MG TAB (MAG-OX) PO SCH ×2 (08:11→22:00)
[2016-04-14] MEDS: APIXABAN 5 MG TAB (ELIQUIS) PO SCH ×2 (08:11→22:00)
[2016-04-14] MEDS: ATORVASTATIN 20 MG TAB PO SCH (08:11)
[2016-04-14] MEDS: VITAMIN D 1,000 INTERNATIONAL UNITS TABLET PO SCH (08:11)
[2016-04-14] MEDS ORDERED: SOD POLYSTYRENE SULFONATE SUSP 15 GM/60 ML UD PO ONE (11:00)
[2016-04-14] MEDS: ALBUTEROL SULFATE 2.5 MG/0.5 ML INH NEB SOLN NEB SCH ×3 (11:24→20:00)
[2016-04-14 12:00] VITALS: BP 140/63
--- NOTE | 2016-04-14 12:03 | REP ---
Clinical: Abdominal pain and vomiting with hypotension and history of acute renal failure. Comparison: 05/30/2014. Findings: Lung bases demonstrate chronic fibro atelectatic changes. Liver, spleen, pancreas, gallbladder, and bilateral adrenal glands are normal. Kidneys demonstrate chronic-appearing perinephric stranding without nephrolithiasis or hydroureteronephrosis. The enteric system is without obstruction or acute inflammatory process. IVC filter and surgical clips primarily in the retroperitoneum noted. Pelvis demonstrates normal bladder and age appropriate prostate/seminal vesicles. No pelvic fluid or ascites. No free air. No obvious adenopathy. Moderate fat containing left inguinal hernia noted with evidence for prior repair. Atherosclerotic changes to the vasculature noted without aneurysm. Musculoskeletal structures demonstrate age-related degenerative changes without focal osseous abnormality. Impression: No obvious acute intra-abdominal or pelvic pathology appreciated. Symmetric chronic perinephric stranding consistent with history of renal failure. Chronic stable changes as described above. Signed by Fred Bill MD 04/14/2016 11:54 A
[2016-04-14 15:20] LABS: CALCIUM LEVEL 8.1 MG/DL (8.8-10.2); CREATININE FOR GFR 1.72 MG/DL (0.70-1.30); GLOMERULAR FILTRATION RATE 43.4 (>49)
[2016-04-14 16:00] VITALS: BP 127/65
[2016-04-14 20:00] VITALS: BP 134/81
[2016-04-14] MEDS: GABAPENTIN 100 MG CAP PO SCH (22:00)
[2016-04-14 22:25] VITALS: BP 129/68
[2016-04-15] MEDS: NS 1,000 ML IV SCH (04:48)
--- NOTE | 2016-04-15 05:56 | IPN ---
DATE: Mr. Mujica is feeling well. He has no complaints of pain, chest pain, shortness of breath. He is tolerating a diet. Temperature is 95.8, pulse 58, respiratory rate 22, blood pressure 140/63, 96% on 4 liters nasal cannula. Ins and outs notable for a positive fluid balance of 500. Three bowel movements thus far today. He is awake, appropriately interactive, breathing symmetrical. I:E ratio is 1:3. Speak complete sentences. No accessory muscle use. Heart is distant sounding, normal S1, S2. Abdomen is soft, doughy, nontender. White cell count 8.4, hemoglobin 12.1, platelets of 137. BUN 35, creatinine 1.72, much improved from 2.4. My assessment is as follows: This is a 60-year-old who presented with hypotension and dehydration, which is improving. Plan is as follows: 1. Patient's hypotension and acute renal failure are resolving. He is approaching baseline. Cause of the hypotension is likely multifactorial related to acute upper respiratory illness and possible recovering from pneumonia complicated with the use of antibiotics. Patient will be transferred to medical-surgical and monitored further. 2. Patient has atrial fibrillation, is anticoagulated. 3. Patient has history of obstructive sleep apnea, has his own continuous positive airway pressure (CPAP)device. 4. Patient has hypertension. Blood pressure medications are on hold. Blood pressure is in the reasonable range currently. 5. Patient has history of coronary artery disease. 6. Patient has cor pulmonale. 7. Patient has history of testicular cancer.
[2016-04-15 06:00] VITALS: BP 141/81
[2016-04-15 06:55] LABS: MEAN CORPUSCULAR HEMOGLOBIN 31.3 pg (27.0-33.0); MEAN CORPUSCULAR HGB CONC 32.1 g/dl (32.0-36.5); MEAN CORPUSCULAR VOLUME 97.6 fl (80.0-96.0); RED CELL DISTRIBUTION WIDTH 12.8 % (11.5-14.5)
[2016-04-15 07:04] LABS: ANION GAP 5 MEQ/L (8-16); BLOOD UREA NITROGEN 22 MG/DL (7-18); CALCIUM LEVEL 8.3 MG/DL (8.8-10.2); CARBON DIOXIDE LEVEL 29 MEQ/L (21-32); CHLORIDE LEVEL 109 MEQ/L (98-107); CREATININE FOR GFR 1.18 MG/DL (0.70-1.30); GLOMERULAR FILTRATION RATE > 60.0 (>49); GLUCOSE, FASTING 105 MG/DL (80-110); POTASSIUM SERUM 4.9 MEQ/L (3.5-5.1); SODIUM LEVEL 143 MEQ/L (136-145)
[2016-04-15] MEDS: ALBUTEROL SULFATE 2.5 MG/0.5 ML INH NEB SOLN NEB SCH ×4 (07:25→19:40)
[2016-04-15] MEDS: TIOTROPIUM INHALER/CAPSULE (SPIRIVA) INH SCH (07:25)
[2016-04-15] MEDS: SYMBICORT 80/4.5MCG INHALER 6GM INH SCH ×2 (07:25→19:38)
[2016-04-15] MEDS: VITAMIN D 1,000 INTERNATIONAL UNITS TABLET PO SCH (08:25)
[2016-04-15] MEDS: MAGNESIUM OXIDE 400 MG TAB (MAG-OX) PO SCH ×2 (08:25→21:20)
[2016-04-15] MEDS: ATORVASTATIN 20 MG TAB PO SCH (08:25)
[2016-04-15] MEDS: APIXABAN 5 MG TAB (ELIQUIS) PO SCH ×2 (08:25→21:20)
--- NOTE | 2016-04-15 09:12 | CR ---
DATE OF CONSULTATION: 04/14/2016 CONSULTATION FOR: eJssie Barron DO REASON FOR CONSULTATION: Acute renal failure and hyperkalemia. HISTORY OF PRESENT ILLNESS: Mr. Mujica is a 60-year-old gentleman with multiple chronic medical problems who was sent to [facility] emergency room from [facility] due to hypotension. Apparently his blood pressure was in the 50s on arrival. Patient has known history of morbid obesity, atrial fibrillation, prior history of testicular cancer, gout and coronary artery disease in addition to recurrent deep venous thromboses (DVTs). He has pulmonary hypertension and has been on chronic anticoagulation. On arrival, his blood pressure was 56/30 mmHg and patient was also found to be in acute renal failure. He had hyperkalemia and nephrology consultation was requested last evening. Case was discussed with Dr. Jessie Barorn at the time of initial request and recommendations were given on the phone. Patient is seen physically this morning. PAST MEDICAL AND SURGICAL HISTORY: Significant for: 1. History of bilateral pulmonary embolism in the past, diagnosed in April 2014, on chronic anticoagulation and inferior vena cava filter placement. 2. History of atrial fibrillation. 3. Pulmonary hypertension. 4. Hyperlipidemia. 5. History of nonsustained ventricular tachycardia. 6. History of obstructive sleep apnea on continuous positive airway pressure (CPAP). 7. History of coronary artery disease, status post heart catheterization. 8. History of cor pulmonary 9. History of benign colon tumor. 10. History of testicular cancer status post orchiectomy. 11. History of morbid obesity. Past surgical history is significant for heart catheterization in 2008, right-sided orchiectomy, history of hernia repair, history of the inferior vena cava filter placement. PERSONAL AND SOCIAL HISTORY: Patient quit smoking about 20 years ago. He drinks 2-3 years per day. He denies any recreational drug use. Family history is negative for premature coronary artery disease and kidney disease. REVIEW OF SYSTEMS: Patient denies any fever or chills. He reports diarrhea and some vomiting 2 days prior to admission. He has been on chronic diuretics due to history of congestive heart failure and cor pulmonary. Cardiovascular system is negative for chest pain. He does have chronic dyspnea. Respiratory system is significant for obstructive sleep apnea. He denies any pleuritic type chest pain or hemoptysis. Gastrointestinal (GI) system is significant for diarrhea and vomiting 2 days prior to admission. There is no history of rectal bleeding or black colored stools. Genitourinary () system is negative for dysuria or hematuria. Musculoskeletal system is significant for morbid obesity. Endocrine system is negative for diabetes. There is no history of thyroid problems. Psychosocial system is negative for depression or anxiety. Neurological system is negative for seizures or stroke. Hematological system is significant for chronic anticoagulation. Skin is negative for rash or ulcers. PHYSICAL EXAMINATION: Patient is awake and alert at the time of my visit. Blood pressure is 118/56 mmHg and temperature 95.9 degrees Fahrenheit, heart rate 83 per minute and respiratory rate 20 per minute. Oxygen saturation is 97% on 4 liters oxygen. Head is atraumatic. Pupils are equal and reactive to light and sclera is anicteric. Ears, nose and throat are unremarkable. Neck veins are mildly distended. Neck is supple and without any thyroid enlargement. Trachea is midline. Heart sounds are distant and irregular in rhythm. Lungs have moderate bilateral air entry with expiratory wheezing. Abdomen is obese and nontender. Bowel sounds are normal and there is no palpable organomegaly. Extremities have no cyanosis or clubbing. Neurologically, he is awake, alert and oriented times three. Skin has no rash or ulcers. LABORATORY DATA: Yesterday, his sodium was 136 and potassium 5.4. BUN 43 and creatinine 3.0. Today's sodium is 139 and potassium is 5.5. CO2 27, BUN 42 and creatinine 2.41. Glucose 123 and calcium 7.9. Blood gas last evening showed a pH of 7.37, pCO2 of 37.3 and pO2 99.8. Hemoglobin is 12.1 and hematocrit 36.8. WBC count is 8.4. Chest x-ray done in the emergency room did not show any acute infiltrate or effusion. He had left lower lobe atelectasis or scar. Chest CT scan also showed chronic fibroid lactic changes. PROBLEMS: 1. Acute renal failure possibly superimposed on chronic kidney disease. Possibly related to hypotension and dehydration. Patient has been receiving intravenous (IV) fluid since admission and urine output has improved. His kidney function has improved only slightly. On clinical exam this morning, he looks reasonably well-hydrated. I agree to stop his diuretic, which has already been stopped. Patient was also on potassium-sparing diuretics and angiotensin-converting enzyme (OMER) inhibitor, which should be stopped for now. At present, all his antihypertensives are on hold. We will continue with IV fluid hydration and also get a CT scan of abdomen and pelvis in order to look further into his renal failure and etiology of hypotension. 2. Hyperkalemia most likely related to acute renal failure. Patient was on potassium-sparing diuretic, OMER inhibitor and potassium supplement at home, which most likely contributed to his hyperkalemia. At present, we will treat him with one dose of Kayexalate 15 grams and continue with IV fluid. His OMER inhibitor, potassium supplement and potassium-sparing diuretics have already been stopped. 3. History of congestive heart failure and pulmonary hypertension. Patient is on 4 liter oxygen. At present, he seems to be very well-hydrated and has risk of worsening respiratory status. His IV fluid is being cut down to only 70 mL/hr and will consider to stop it in next 24 hours. 4. Hypoxemia. Most likely this is chronic related to cor pulmonary and pulmonary hypertension. I do not feel that he is in overt congestive heart failure at this point. We will continue with low rate IV fluid and monitor closely. I thank you for involving me in the care of Mr. Mujica. I will follow him along with you.
[2016-04-15 14:00] VITALS: BP 131/62
--- NOTE | 2016-04-15 14:56 | IPN ---
DATE: 04/15/2016 Mr. Mujica is seen this morning on his bedside. He is feeling much better and denies any nausea, vomiting, or diarrhea anymore. His strength has improved. He denies any chest pain or palpitations. There are no fever or chills. PHYSICAL EXAMINATION: On physical examination, temperature 96.9 degrees Fahrenheit, heart rate 95 per minute and respiratory rate 20 per minute. Blood pressure 141/80 mmHg and oxygen saturation 91% on room air. Neck veins are mildly distended. Head is atraumatic. Ears, nose and throat are unremarkable. Pupils are equal and reactive to light and sclera is anicteric. Heart sounds are distant but regular. Lungs have no wheezing today and no rales. Abdomen is obese and nontender. Bowel sounds are normal and there is no palpable organomegaly. Extremities have no cyanosis or clubbing. Neurologically, he is awake, alert and oriented time three. Skin has no rash or ulcers. LABORATORY DATA: Today's laboratories show WBC count 5.0, hemoglobin 11.7 and hematocrit 36.5. Platelets 116. Sodium is 143 and potassium 4.9. BUN 22 and creatinine 1.18. PROBLEMS: 1. Acute renal failure. Most likely related to hypotension and dehydration. His kidney function has improved with decent urine output. His oral intake is adequate so his IV fluid is being stopped. 2. Hypotension. Blood pressure has also improved. The patient has been off all his diuretics and antihypertensive medications. I am going to stop his IV fluid. I would suggest to keep his diuretics on hold and resume his antihypertensives only one at a time as needed. 3. Hyperkalemia, related to acute renal failure and medications. The patient was on angiotensin-converting enzyme (OMER) inhibitor, potassium supplement and potassium-sparing diuretic at home. Now, his hyperkalemia has improved with treatment and hydration. His potassium supplement, OMER inhibitor and potassium-sparing diuretics are all on hold. 4. Chronic obstructive pulmonary disease (COPD). His respiratory status is better today with regular bronchodilator nebulizer treatments which will be continued.
--- NOTE | 2016-04-15 18:45 | IPN ---
DATE: 04/15/2016 SUBJECTIVE: Mr. Mujica is feeling well today, although weaker than normal, somewhat unsteady on his feet and tired. OBJECTIVE: VITAL SIGNS: Temperature is 96.9, pulse 95, respiratory rate 20, blood pressure 141/81, 91% on room air. Intake and output notable for positive fluid balance of 1005, three bowel movements noted yesterday. Weight is 154 kg. Body mass index 42.5. GENERAL: He is awake, appropriately interactive. LUNGS: Breathing is symmetrical, somewhat diminished throughout. I to E ratio is more than three. HEART: Distant sounding. ABDOMEN: Soft, doughy, nontender. LABORATORY DATA: White cell count 5, hemoglobin 11.7, platelets of 116. BUN 22, creatinine 1.18. ASSESSMENT: 1. A 60-year-old who presented with hypotension, dehydration, which are improving. 2. The patient's renal failure has resolved; because of the hypotension, is likely multifactorial related to an acute upper respiratory illness. He continues to be hypoxic at night. We will get a nocturnal oximetry (noc ox) tonight to further evaluate. 3. The patient has atrial fibrillation. Is anticoagulated. 4. The patient has a history of obstructive sleep apnea. Has his own continuous positive airway pressure (CPAP) device, but is not particularly compliant with that apparently. 5. The patient has hypertension by history. Reasonably well controlled in the current setting, although he is not on any antihypertensives. 6. The patient has coronary artery disease. 7. The patient has a history of cor pulmonale. 8. The patient has a history of testicular cancer.
[2016-04-15] MEDS: GABAPENTIN 100 MG CAP PO SCH (21:20)
--- NOTE | 2016-04-15 21:53 | EDDOCDS ---
Physician Documentation [facility] Name: Terell Mujica Age: 60 yrs Sex: Male : 1955 Arrival Date: 04/13/2016 Time: 09:53 Bed 21 Private MD: [facility] Disposition: 04/13 12:35 Critical Care:. pc Disposition: 04/13/16 12:38 Hospitalization ordered by Jessie Barron for Inpatient Admission. Preliminary diagnosis are Hypotension, Acute kidney failure - likely due to Avelox. - Bed requested for PCU. - Status is Inpatient Admission. [place] - Condition is Stable. - Problem is new. - Symptoms have improved. HPI: 11:29 This 60 yrs old Male presents to ER via Ambulance with complaints of Blood pc Pressure Problem. 11:29 The history is obtained from the patient. He was seen here 2 weeks ago for a cough and pc was diagnosed with pneumonia, with normal labs and CXR. He was sent homeo n ABX and did not feel he was improving. He was seen at his PCP today for a 2 week hospital follow up and was found to be hypotensive, feeling dizzy when he stands. He denies any fevers, sputum production, black stools, chest pain. At their worst, the symptoms were moderate. In the emergency department, the symptoms are mild. The patient has not experienced similar symptoms in the past. Historical: - Allergies: no known allergies; - Home Meds: 1. albuterol sulfate 2.5 mg /3 mL (0.083 %) Inhl nebu prn (Last dose: 04/13/2016 07:00) 2. albuterol sulfate 90 mcg/actuation Inhl aepb 1 puff every 4-6 hours (Last dose: 04/13/2016 07:00) 3. allopurinol 100 mg Oral tab 2 tabs once daily (Last dose: 04/13/2016 07:00) 4. atorvastatin 40 mg oral tab once daily (Last dose: 04/13/2016 07:00) 5. budesonide-formoterol 80-4.5 mcg/actuation inhalation HFAA 2 times per day (Last dose: 04/13/2016 07:00) 6. carvedilol 25 mg oral tab 2 times per day (Last dose: 04/13/2016 07:00) 7. lisinopril 20 mg Oral tab once daily (Last dose: 04/13/2016 07:00) 8. magnesium oxide 400 mg Oral cap twice a day (Last dose: 04/13/2016 07:00) 9. potassium chloride 10 mEq Oral cpER 2 caps 2 times per day (Last dose: 04/13/2016 07:00) 10. spironolactone 50 mg oral tab .5 tab 2 times per day (Last dose: 04/13/2016 07:00) 11. tiotropium bromide 18 mcg inhalation CpDv once daily (Last dose: 04/13/2016 07:00) 12. Eliquis 5 mg oral tab 1 tab 2 times per day (Last dose: 04/13/2016 07:00) 13. Lasix 80 mg Oral tab 2 tabs 2 times per day (Last dose: 04/13/2016 07:00) 14. colchicine 0.6 mg oral cap as needed for Gout - PMHx: Asthma; Cancer, Testicular- Right; DVT; Pneumonia; Atrial Fib; Gout; Hypertension; Hypercholesterolemia; hypokalemia; morbid obesity; - PSHx: , right orchiectomy testicular cancer; Heart catherization; [place] Filter Placement; Hernia repair- Left inguinal; - The history from nurses notes was reviewed: and I agree with what is documented. - Social history: Smoking status: Patient states was never smoker of tobacco. No barriers to communication noted, The patient speaks fluent Tongan. - Family history: Not pertinent. - : The pt / caregiver states he / she is on anticoagulants: Eliquis Home medication list is obtained from the patient. - Hospitalizations: : No recent hospitalization is reported. - Exposure Risk Screening:: None identified. - Immunization history:: All immunizations up-to-date. - Social history:: the patient is a non-smoker, the patient does not drink alcohol. ROS: 11:29 All systems are negative except as listed. pc Exam: 11:29 General Appearance: no acute distress, alert. pc 11:29 EENT: normal eye inspection, ears, nose and throat normal, pharynx normal, mucous membranes moist 11:29 Neck: The exam reveals no acute abnormalities. ROM is normal and painless. No nuchal rigidity is noted.. 11:29 Respiratory: no respiratory distress, normal breath sounds. 11:29 CVS: regular pulse rate, regular rhythm, normal S1 and S2, no murmurs, strong peripheral pulses, normal capillary refill. 11:29 Abdomen: soft, non-tender, no organomegaly, normal bowel sounds. 11:29 Back: normal inspection. 11:29 Skin: skin color is normal, warm, dry. 11:29 Extremities: The extremities have a grossly normal appearance, are non-tender, without acute ROM abnormalities. 11:29 Neuro: oriented x 3, cranial nerves normal as tested, no motor deficits, no sensory deficits. 11:29 Psych: normal mood. Vital Signs: 10:01 BP 112 / 52 (auto/); mk4 10:02 BP 85 / 51; Pulse 60; Resp 18; Temp 97.0(O); Pulse Ox 96% on 4 lpm NC; Weight 147.42 kg nb2 / 325.01 lbs (R); Height 6 ft. 3 in. (190.50 cm) (R); Pain 4/10; 10:02 Pulse 74 MON; Pulse Ox 97% ; mk4 10:16 BP 102 / 60 (auto/); mk4 10:16 Pulse 68 MON; Pulse Ox 96% ; mk4 10:30 Pulse 66 MON; Pulse Ox 95% ; mk4 10:31 BP 66 / 32 (auto/); mk4 10:38 Pulse 66 MON; Pulse Ox 95% ; mk4 10:38 BP 70 / 39 (auto/); mk4 10:46 BP 83 / 44 (auto/); mk4 10:46 Pulse 64 MON; Pulse Ox 96% on 2 lpm NC; mk4 10:54 BP 94 / 52 (auto/); mk4 10:54 Pulse 62 MON; Pulse Ox 97% ; mk4 11:17 BP 105 / 55 (auto/); ms18 11:19 Pulse 68 MON; Resp 18; Pulse Ox 96% ; ms18 11:46 BP 74 / 50 (auto/); ms18 11:46 Pulse 74 MON; Pulse Ox 95% ; ms18 12:01 Pulse 74 MON; Pulse Ox 96% ; ms18 12:01 BP 73 / 39 (auto/); ms18 12:06 Pulse 72 MON; Pulse Ox 93% ; ms18 12:08 BP 78 / 50 (auto/); ms18 12:16 BP 88 / 63 (auto/); ms18 12:18 Pulse 66 MON; Pulse Ox 93% ; ms18 12:28 Pulse 68 MON; Pulse Ox 94% ; ms18 12:31 BP 85 / 50 (auto/); ms18 12:43 BP 109 / 62 (auto/); ms18 12:44 Pulse 72 MON; Pulse Ox 94% ; ms18 12:46 BP 113 / 61 (auto/); ms18 12:47 Pulse 74 MON; Pulse Ox 95% ; ms18 13:01 BP 109 / 76 (auto/); ms18 13:01 Pulse 72 MON; Pulse Ox 93% ; ms18 13:16 BP 110 / 58 (auto/); ms18 13:16 Pulse 70 MON; Pulse Ox 90% ; ms18 13:31 BP 110 / 62 (auto/); ms18 13:32 Pulse 72 MON; Pulse Ox 93% ; ms18 13:46 BP 107 / 76 (auto/); ms18 13:46 Pulse 86 MON; Pulse Ox 93% ; ms18 13:59 Pulse 68 MON; Pulse Ox 93% ; ms18 14:00 Pulse 72 MON; Pulse Ox 92% ; ms18 14:01 BP 116 / 72 (auto/); ms18 14:14 Pulse 80 MON; Pulse Ox 94% ; ms18 14:15 Pulse 78 MON; Pulse Ox 93% ; ms18 14:16 BP 99 / 63 (auto/); ms18 14:46 BP 114 / 74 (auto/); ms18 14:52 Pulse 80 MON; Pulse Ox 92% ; ms18 10:02 Body Mass Index 40.62 (147.42 kg, 190.50 cm) nb2 10:[address] Fuller orders recieved mk4 MDM: 10:05 ECG WITH READING ER PHYS+CARDIAG ordered. EDMS 10:30 Solu-MEDROL 125 mg IVP once ordered. pc 10:30 -Blood Culture (Adults Only), peripheral from different site, or from device/port/PICC pc etc. if present ordered. 10:30 Call Respiratory ordered. pc 10:30 Amplifier Mechanic/Pulse Ox/q 15 min VS ordered. pc 10:30 IV Saline Lock ordered. pc 10:30 Oxygen at 4L/Min NC or Home dosage ordered. pc 10:30 Rhythm Strip to chart ordered. pc 10:30 -Arterial Blood Gas Ordered. EDMS 10:30 -Blood Culture Ordered. EDMS 10:30 B-Type Natiuretic Peptide Ordered. EDMS 10:30 Basic Metabolic Profile Ordered. EDMS 10:30 CBC with Diff Ordered. EDMS 10:30 Cardiac Injury Profile Ordered. EDMS 10:30 Troponin Ordered. EDMS 10:31 Chest, 1 View Ordered. EDMS 10:37 NS 0.9% 1000 ml IV at bolus once ordered. pc 10:37 IV Saline Lock ordered. pc 10:38 Lactic Acid ([place]ed[place] tube on ice) Ordered. EDMS 10:39 Call Respiratory complete. dsf 10:59 -Blood Culture (Adults Only), peripheral from different site, or from device/port/PICC lbd etc. if present complete. 11:02 BLOOD CULTURES Ordered. EDMS 11:09 Test interpretation: EKG. pc 11:10 Financial registration complete. lg 11:10 -Arterial Blood Gas Reviewed. pc 11:10 CBC with Diff Reviewed. pc 11:10 Lactic Acid (Cedeno tube on ice) Reviewed. pc 11:29 Differential Diagnosis: hypotension without obvious cause; COPD. Plan: labs, EKG, CXR, pc IVF. 11:40 Basic Metabolic Profile Reviewed. pc 11:40 Cardiac Injury Profile Reviewed. pc 11:40 Troponin Reviewed. pc 11:40 Chest, 1 View Reviewed. pc 11:43 BED REQUEST+ADM ordered. EDMS 11:53 CT Chest Without Contrast Ordered. EDMS 12:17 B-Type Natiuretic Peptide Reviewed. pc 12:35 Data reviewed: old medical records, vital signs, nurses notes, EKG(s), lab test pc results, all radiology studies and available results. Test interpretation: LAB - all labs as ordered have been reviewed, interpreted and considered in the overall management of the clinical presentation; Arterial blood gas is normal. X-RAY - interpreted by Radiologist and personally reviewed, 1 view chest no acute disease. The patient has been re-examined and re-evaluated. The patient's symptoms have markedly improved after treatment, with his BP 110/52. Physician consultation: Dr. Jessie Barron regarding admission. Disposition: The historical points, examination findings, and any diagnostic results supporting the provided diagnosis, were discussed with the patient or legal guardian. The need for further work-up and/or treatment in the hospital was explained. 12:46 [facility] Payment Agreement was scanned into [employer] and attached to record. lg 13:03 Admission / Observation Status ordered. EDMS 13:03 2 GRAM SODIUM DIET ordered. EDMS 13:32 BASIC METABOLIC PROFILE Ordered. EDMS 13:35 NS 0.9% 1000 ml IV at bolus once ordered. pc 19:32 COMPLETE BLOOD COUNT Ordered. EDMS 19:32 BASIC METABOLIC PROFILE Ordered. EDMS EC:09 Rate is 79 beats/min. Rhythm is irregularly irregular, A fib. QRS [place] is Normal. NE pc interval is normal. QRS interval is normal. QT interval is normal. Q waves are Old in leads III, aVF. T waves are Normal. No ST changes noted. Clinical impression: Atrial Fibrillation w/o RVR and Inferior HI - age indeterminate. No change from previous ECG in February,. Administered Medications: 10:38 Drug: Solu-MEDROL 125 mg [Solu-Medrol 500 mg intravenous solution (125 mg)] Route: IVP; dsf Site: left antecubital; 10:49 Drug: NS 0.9% 1000 ml [sodium chloride 0.9 % intravenous solution] Route: IV; Rate: mk4 bolus; Site: left antecubital; 12:21 Follow up: IV Status: Completed infusion; IV Intake: 1000ml ms18 13:47 Drug: NS 0.9% 1000 ml [sodium chloride 0.9 % intravenous solution] Route: IV; Rate: ms18 bolus; Site: left antecubital; 15:18 Follow up: IV Status: Completed infusion; IV Intake: 1000ml ms18 Critical Care Time: 12:35 Critical care time: Bedside Care: 20 minutes, Consultation: 10 minutes. Total time: 30 pc minutes Signatures: Dispatcher [employer] EDIL Ramo Fuller MD MD pc Daly, Linda, Neuropathologist Unit lbd Jannet Heller RN Tavo Stephens, Yvan Reg lg Libby Adler RN RN dsf King, Margaret, RN RN [facility] Michael Melendez RN RN mts Smith, Mallory RN [id number] The chart was reviewed and I authenticate all verbal orders and agree with the evaluation and treatment provided.Corrections: (The following items were deleted from the chart) 10:31 10:17 Allergies: atrial fib; mk4 mk4 Attachments: 12:46 [facility] Payment Agreement lg Chart Complete MTDD
--- NOTE | 2016-04-15 21:53 | EDDOCDS ---
Nurse's Notes [facility] Name: Terell Mujica Age: 60 yrs Sex: Male : 1955 Arrival Date: 04/13/2016 Time: 09:53 Bed 21 Private MD: [facility] [place] Diagnosis: Hypotension;Acute kidney failure-likely due to [place] Presentation: 04/13 10:04 Presenting complaint: Patient states: WAS AT THE [facility] FOR A FOLLOW UP PNEUMINIA mk4 VISIT AND THEY NOTICED HIS B/P WAS LOW, PT states he has been having trouble breathing since 03/28 diagnosed with pnuemonia , pasin left scapula area rad around to left axilla, pt states pain left axilla only now. Adult Sepsis Screening: The patient does not have new or worsening altered mentation. Patient's respiratory rate is less than 22. Systolic blood pressure is less than or equal to 100 (1 point). Patient has a qSOFA score of 1- Negative Sepsis Screen. Suicide/Homicide risk assessment- the patient denies having any suicidal and/or homicidal ideations and does not present with any other emotional, behavioral or mental health complaints. 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 Transition of care: patient was received from a primary care office; [facility]. 10:04 Acuity: PATTI Level 2 mk4 10:04 Method Of Arrival: Ambulance 4 Historical: - Allergies: no known allergies; - Home Meds: 1. albuterol sulfate 2.5 mg /3 mL (0.083 %) Inhl nebu prn (Last dose: 04/13/2016 07:00) 2. albuterol sulfate 90 mcg/actuation Inhl aepb 1 puff every 4-6 hours (Last dose: 04/13/2016 07:00) 3. allopurinol 100 mg Oral tab 2 tabs once daily (Last dose: 04/13/2016 07:00) 4. atorvastatin 40 mg oral tab once daily (Last dose: 04/13/2016 07:00) 5. budesonide-formoterol 80-4.5 mcg/actuation inhalation HFAA 2 times per day (Last dose: 04/13/2016 07:00) 6. carvedilol 25 mg oral tab 2 times per day (Last dose: 04/13/2016 07:00) 7. lisinopril 20 mg Oral tab once daily (Last dose: 04/13/2016 07:00) 8. magnesium oxide 400 mg Oral cap twice a day (Last dose: 04/13/2016 07:00) 9. potassium chloride 10 mEq Oral cpER 2 caps 2 times per day (Last dose: 04/13/2016 07:00) 10. spironolactone 50 mg oral tab .5 tab 2 times per day (Last dose: 04/13/2016 07:00) 11. tiotropium bromide 18 mcg inhalation CpDv once daily (Last dose: 04/13/2016 07:00) 12. Eliquis 5 mg oral tab 1 tab 2 times per day (Last dose: 04/13/2016 07:00) 13. Lasix 80 mg Oral tab 2 tabs 2 times per day (Last dose: 04/13/2016 07:00) 14. colchicine 0.6 mg oral cap as needed for Gout - PMHx: Asthma; Cancer, Testicular- Right; DVT; Pneumonia; Atrial Fib; Gout; Hypertension; Hypercholesterolemia; hypokalemia; morbid obesity; - PSHx: , right orchiectomy testicular cancer; Heart catherization; Enrique Filter Placement; Hernia repair- Left inguinal; - The history from nurses notes was reviewed: and I agree with what is documented. - Social history: Smoking status: Patient states was never smoker of tobacco. No barriers to communication noted, The patient speaks fluent Moh[place]. - Family history: Not pertinent. - : The pt / caregiver states he / she is on anticoagulants: Eliquis Home medication list is obtained from the patient. - Hospitalizations: : No recent hospitalization is reported. - Exposure Risk Screening:: None identified. - Immunization history:: All immunizations up-to-date. - Social history:: the patient is a non-smoker, the patient does not drink alcohol. Screenin:56 Screening information is obtained from the patient. Fall risk: No risks identified. mk4 Assistance ADL's: requires no assistance with activities of daily living. Abuse/DV Screen: The patient / caregiver reports he/she is: not in a situation that causes fear, pain or injury. Nutritional screening: No deficits noted. home support is adequate. Assessment: 10:49 General: Appears in no apparent distress, comfortable, Behavior is cooperative. Pain: mk4 Location: left axilla area Pain currently is 4 out of 10 on a pain scale. Cardiovascular: Rhythm is irregular. Respiratory: Airway is patent Respiratory effort is even, unlabored, Respiratory pattern is regular, Reports shortness of breath labored breathing since a few weeks ago. 10:54 General: hypotension reported to Dr Fuller. Neurological: Level of Consciousness is mk4 awake, alert. Respiratory: Breath sounds are clear bilaterally. the patient has moderate shortness of breath. Derm: Skin is intact, is healthy with good turgor, Skin is pink, warm & dry. 11:04 General: Appears in no apparent distress, comfortable, Behavior is cooperative. Pain: mk4 Location: left axilla Pain currently is 4 out of 10 on a pain scale. 11:31 General: Appears in no apparent distress, comfortable, obese, Behavior is appropriate ms18 for age, cooperative. Pain: Location: left lateral anterior chest and left lateral posterior chest Pain currently is 5 out of 10 on a pain scale. Neurological: No deficits noted. Cardiovascular: Rhythm is irregular. Respiratory: Airway is patent Respiratory effort is even, unlabored. Derm: Skin is pink, warm & dry. 12:32 General: Pt in no acute distress. Will continue to monitor pt. ms18 13:34 General: Appears in no apparent distress, comfortable, Behavior is appropriate for age, ms18 cooperative, Awaiting bed assignment at this time. Will continue to monitor pt. Neurological: No deficits noted. Derm: Skin is pink, warm & dry. 14:25 General: Pt in no acute distress. Will continue to monitor pt. ms18 15:17 General: Appears in no apparent distress, comfortable, obese, Behavior is appropriate ms18 for age, cooperative, pleasant. General: Pt moved to room 21 and is in no acute distress at this time. . Neurological: No deficits noted. Respiratory: Airway is patent Respiratory effort is even, unlabored, Respiratory pattern is regular. Derm: Skin is pink, warm & dry. Vital Signs: 10:01 BP 112 / 52 (auto/); mk4 10:02 BP 85 / 51; Pulse 60; Resp 18; Temp 97.0(O); Pulse Ox 96% on 4 lpm NC; Weight 147.42 kg nb2 (R); Height 6 ft. 3 in. (190.50 cm) (R); Pain 4/10; 10:02 Pulse 74 MON; Pulse Ox 97% ; mk4 10:16 BP 102 / 60 (auto/); mk4 10:16 Pulse 68 MON; Pulse Ox 96% ; mk4 10:30 Pulse 66 MON; Pulse Ox 95% ; mk4 10:31 BP 66 / 32 (auto/); mk4 10:38 Pulse 66 MON; Pulse Ox 95% ; mk4 10:38 BP 70 / 39 (auto/); mk4 10:46 BP 83 / 44 (auto/); mk4 10:46 Pulse 64 MON; Pulse Ox 96% on 2 lpm NC; mk4 10:54 BP 94 / 52 (auto/); mk4 10:54 Pulse 62 MON; Pulse Ox 97% ; mk4 11:17 BP 105 / 55 (auto/); ms18 11:19 Pulse 68 MON; Resp 18; Pulse Ox 96% ; ms18 11:46 BP 74 / 50 (auto/); ms18 11:46 Pulse 74 MON; Pulse Ox 95% ; ms18 12:01 Pulse 74 MON; Pulse Ox 96% ; ms18 12:01 BP 73 / 39 (auto/); ms18 12:06 Pulse 72 MON; Pulse Ox 93% ; ms18 12:08 BP 78 / 50 (auto/); ms18 12:16 BP 88 / 63 (auto/); ms18 12:18 Pulse 66 MON; Pulse Ox 93% ; ms18 12:28 Pulse 68 MON; Pulse Ox 94% ; ms18 12:31 BP 85 / 50 (auto/); ms18 12:43 BP 109 / 62 (auto/); ms18 12:44 Pulse 72 MON; Pulse Ox 94% ; ms18 12:46 BP 113 / 61 (auto/); ms18 12:47 Pulse 74 MON; Pulse Ox 95% ; ms18 13:01 BP 109 / 76 (auto/); ms18 13:01 Pulse 72 MON; Pulse Ox 93% ; ms18 13:16 BP 110 / 58 (auto/); ms18 13:16 Pulse 70 MON; Pulse Ox 90% ; ms18 13:31 BP 110 / 62 (auto/); ms18 13:32 Pulse 72 MON; Pulse Ox 93% ; ms18 13:46 BP 107 / 76 (auto/); ms18 13:46 Pulse 86 MON; Pulse Ox 93% ; ms18 13:59 Pulse 68 MON; Pulse Ox 93% ; ms18 14:00 Pulse 72 MON; Pulse Ox 92% ; ms18 14:01 BP 116 / 72 (auto/); ms18 14:14 Pulse 80 MON; Pulse Ox 94% ; ms18 14:15 Pulse 78 MON; Pulse Ox 93% ; ms18 14:16 BP 99 / 63 (auto/); ms18 14:46 BP 114 / 74 (auto/); ms18 14:52 Pulse 80 MON; Pulse Ox 92% ; ms18 10:02 Body Mass Index 40.62 (147.42 kg, 190.50 cm) nb2 10:[address] Fuller orders recieved mk4 Vitals: 10:02 Log In Time N/A - ambulance arrival. nb2 ED Course: 09:54 Patient visited by Abimbola Otero, Advisor Consultant. lbd 09:54 Patient moved to Waiting lbd 09:55 [facility] [place] is Private Physician. lbd 09:56 Patient moved to lbd 10:02 Placed in gown. Bed in low position. Call light in reach. Side rails up X2. Cardiac nb2 monitor on. Pulse ox on. NIBP on. 10:03 Patient visited by Taryn Eng. nb2 10:06 Triage Initiated mk4 10:10 EKG done. (by ED staff). Reviewed by Ramo Fuller MD. nb2 10:11 Patient visited by Taryn Eng. nb2 10:21 Ramo Fuller MD is Attending Physician. pc 10:32 Patient visited by Ramo Fuller MD. pc 10:42 Lactic Acid (Cedeno tube on ice) Sent. mk4 10:42 -Blood Culture Sent. mk4 10:42 B-Type Natiuretic Peptide Sent. mk4 10:42 Basic Metabolic Profile Sent. mk4 10:42 CBC with Diff Sent. mk4 10:42 Cardiac Injury Profile Sent. mk4 10:42 Troponin Sent. mk4 10:53 -Arterial Blood Gas Sent. kt1 10:56 The patient / caregiver is instructed regarding the plan of care and ED course. mk4 10:56 Maintain field IV. IV Flushed left antecubital saline lock. O2 via nasal cannula \T\ mk4 2L/min. 11:03 Patient visited by Ligia Fofana RN. mk4 11:12 Chest, 1 View Returned. EDMS 11:19 Property :Personal belongings accompany Pt. ms18 11:30 Marlin AzulRN is Primary Nurse. ms18 11:31 Patient visited by Marlin Azul RN. ms18 12:21 Patient visited by Marlin Azul,NIR. ms18 12:26 PippademetriJessie explosive specialist. ys2 12:30 CT Chest Without Contrast Returned. EDMS 12:38 PippademetriJessie is Hospitalizing Provider. pc 12:43 Patient name changed from Terell\S\A\S\Yerdon Jr\S\ to Terell\S\A\S\Yerdon. EDMS 12:46 [facility] [place] Payment Agreement was scanned into [employer] and attached to record. lg 15:00 Patient moved to 21 kcs 15:17 Patient visited by Marlin Azul RN. ms18 Administered Medications: 10:38 Drug: Solu-MEDROL 125 mg [Solu-Medrol 500 mg intravenous solution (125 mg)] Route: IVP; dsf Site: left antecubital; 10:49 Drug: NS 0.9% 1000 ml [sodium chloride 0.9 % intravenous solution] Route: IV; Rate: mk4 bolus; Site: left antecubital; 12:21 Follow up: IV Status: Completed infusion; IV Intake: 1000ml ms18 13:47 Drug: NS 0.9% 1000 ml [sodium chloride 0.9 % intravenous solution] Route: IV; Rate: ms18 bolus; Site: left antecubital; 15:18 Follow up: IV Status: Completed infusion; IV Intake: 1000ml ms18 Intake: 10:46 IV: 400.00ml (NS); Total: 400.00ml. mk4 12:21 IV: 1000.00ml; Total: 1400.00ml. ms18 15:18 IV: 1000.00ml; Total: 2400.00ml. ms18 RT: 10:53 ABG's drawn from right radial artery pressure held for 5 minutes no bleeding noted kt1 pressure bandage applied specimen sent pt. tolerated well. Order Results: Lab Order: -Arterial Blood Gas; SPEC'M 04/13/16 10:39 Test: ABG pH (ARTERIAL); Value: 7.373; Range: 7.350-7.450; Units: UNITS; Status: F Test: ABG PARTIAL PRESSURE CO2; Value: 37.3; Range: 35.0-45.0; Units: mmHg; Status: F Test: ABG PARTIAL PRESSURE O2; Value: 99.8; Range: 75.0-100.0; Units: mmHg; Status: F Test: ABG TOTAL CO2; Value: 22.4; Range: 23.0-31.0; Abnormal: Below low normal; Units: MEQ/L; Status: F Test: ABG HCO3; Value: 21.2; Range: 22.0-26.0; Abnormal: Below low normal; Units: MEQ/L; Status: F Test: ABG BASE EXCESS; Value: -3.5; Range: -2.0-2.0; Abnormal: Below low normal; Status: F Test: ABG STANDARD HCO3; Value: 21.6; Range: 22.0-26.0; Abnormal: Below low normal; Units: MEQ/L; Status: F Test: ABG O2 SATURATION; Value: 97.1; Range: 95.0-99.0; Units: %; Status: F Test: ABG DEVICE; Value: NASAL BERT; Status: F Lab Order: B-Type Natiuretic Peptide; SPEC' 04/13/16 10:37 Test: BRAIN NATRIURETIC PEPTIDE; Value: 52.5; Range: <100; Units: PG/ML; Status: F Lab Order: Basic Metabolic Profile; SPEC' 04/13/16 10:37 Test: GLUCOSE, FASTING; Value: 100; Range: 80-110; Units: MG/DL; Status: F Test: BLOOD UREA NITROGEN; Value: 42; Range: 7-18; Abnormal: Above high normal; Units: MG/DL; Status: F Test: CREATININE FOR GFR; Value: 3.88; Range: 0.70-1.30; Abnormal: Above high normal; Units: MG/DL; Status: F Test: GLOMERULAR FILTRATION RATE; Value: 17.0; Range: >49; Abnormal: Below low normal; Status: F Test: SODIUM LEVEL; Value: 139; Range: 136-145; Units: MEQ/L; Status: F Test: POTASSIUM SERUM; Value: 5.2; Range: 3.5-5.1; Abnormal: Above high normal; Units: MEQ/L; Status: F Test: CHLORIDE LEVEL; Value: 101; Range: 98-107; Units: MEQ/L; Status: F Test: CARBON DIOXIDE LEVEL; Value: 30; Range: 21-32; Units: MEQ/L; Status: F Test: ANION GAP; Value: 8; Range: 8-16; Units: MEQ/L; Status: F Test: CALCIUM LEVEL; Value: 7.9; Range: 8.8-10.2; Abnormal: Below low normal; Units: MG/DL; Status: F Test Note: ; Units are mL/min/1.73 m2 Chronic Kidney Disease Staging per NKF: Stage I & II GFR >=60 Normal to Mildly Decreased Stage III GFR 30-59 Moderately Decreased Stage IV GFR 15-29 Severely Decreased Stage V GFR <15 Very Little GFR Left ESRD GFR <15 on [employer]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 Lab Order: CBC with Diff; SPEC'M 04/13/16 10:37 Test: WHITE BLOOD COUNT; Value: 8.1; Range: 4.0-10.0; Units: K/mm3; Status: F Test: RED BLOOD COUNT; Value: 4.30; Range: 4.30-6.10; Units: M/mm3; Status: F Test: HEMOGLOBIN; Value: 13.2; Range: 14.0-18.0; Abnormal: Below low normal; Units: g/dl; Status: F Test: HEMATOCRIT; Value: 40.6; Range: 42.0-52.0; Abnormal: Below low normal; Units: %; Status: F Test: MEAN CORPUSCULAR VOLUME; Value: 94.4; Range: 80.0-96.0; Units: fl; Status: F Test: MEAN CORPUSCULAR HEMOGLOBIN; Value: 30.7; Range: 27.0-33.0; Units: pg; Status: F Test: MEAN CORPUSCULAR HGB CONC; Value: 32.5; Range: 32.0-36.5; Units: g/dl; Status: F Test: RED CELL DISTRIBUTION WIDTH; Value: 12.8; Range: 11.5-14.5; Units: %; Status: F Test: PLATELET COUNT, AUTOMATED; Value: 160; Range: 150-450; Units: k/mm3; Status: F Test: NEUTROPHILS %; Value: 78.5; Range: 36.0-66.0; Abnormal: Above high normal; Units: %; Status: F Test: LYMPH %; Value: 13.4; Range: 24.0-44.0; Abnormal: Below low normal; Units: %; Status: F Test: MONO %; Value: 5.4; Range: 0.0-5.0; Abnormal: Above high normal; Units: %; Status: F Test: EOS %; Value: 1.1; Range: 0.0-3.0; Units: %; Status: F Test: BASO %; Value: 0.5; Range: 0.0-1.0; Units: %; Status: F Test: LARGE UNSTAINED CELL %; Value: 1.1; Range: 0.0-4.0; Units: %; Status: F Test: NEUTROPHILS #; Value: 6.3; Range: 1.8-7.7; Units: K/mm3; Status: F Test: LYMPH #; Value: 1.2; Range: 1.5-4.5; Abnormal: Below low normal; Units: K/mm3; Status: F Test: MONO #; Value: 0.4; Range: 0.0-0.8; Units: K/mm3; Status: F Test: EOS #; Value: 0.1; Range: 0.0-0.50; Units: K/mm3; Status: F Test: BASO #; Value: 0.0; Range: 0.0-0.2; Units: K/mm3; Status: F Test: LARGE UNSTAINED CELL #; Value: 0.1; Range: 0.0-0.4; Units: K/mm3; Status: F Lab Order: Cardiac Injury Profile; SPEC'M 04/13/16 10:37 Test: CPK CREATINE PHOSPHOKINASE; Value: 47; Range: 39-308; Units: U/L; Status: F Test: CK-MB VALUE MASS; Value: 1.9; Range: 0.0-3.6; Units: NG/ML; Status: F Test: MB/CK RELATIVE INDEX; Value: 4.04; Range: < OR =4; Abnormal: Above high normal; Status: F Test Note: ; DIAGNOSIS CRITERIA MMB ng/ml Relative Index (RI) NON-AMI < or = 5 N/A CEDENO ZONE > 5 < or = 4 AMI > 5 > 4 Lab Order: Troponin; [facility] 04/13/16 10:37 Test: TROPONIN I; Value: < 0.02; Range: < 0.10; Units: NG/ML; Status: F Test Note: ; Troponin I Reference Interval for [employer] LOCI: 99th Percentile= 0.00-0.045 ng/ml Risk Stratification: <= 0.10 ng/ml Decreased Risk for Adverse Clinical Events. 0.10-1.50 ng/ml Increased Risk for Adverse Clinical Events. Evaluation of additional criterion and/or repeat testing in 2-6 hours is suggested to rule out myocardial damage. >= 1.50 ng/ml Indicative of Myocardial Injury. Lab Order: Lactic Acid (Cedeno tube on ice); [facility] 04/13/16 10:37 Test: LACTIC ACID SEPSIS PROTOCOL; Value: 1.2; Range: 0.4-2.0; Units: MMOL/L; Status: F Lab Order: BASIC METABOLIC PROFILE; [facility] 04/13/16 17:36 Test: GLUCOSE, FASTING; Value: 146; Range: 80-110; Abnormal: Above high normal; Units: MG/DL; Status: F Test: BLOOD UREA NITROGEN; Value: 42; Range: 7-18; Abnormal: Above high normal; Units: MG/DL; Status: F Test: CREATININE FOR GFR; Value: 3.05; Range: 0.70-1.30; Abnormal: Above high normal; Units: MG/DL; Status: F Test: GLOMERULAR FILTRATION RATE; Value: 22.4; Range: >49; Abnormal: Below low normal; Status: F Test: SODIUM LEVEL; Value: 136; Range: 136-145; Units: MEQ/L; Status: F Test: POTASSIUM SERUM; Value: 5.4; Range: 3.5-5.1; Abnormal: Above high normal; Units: MEQ/L; Status: F Test: CHLORIDE LEVEL; Value: 105; Range: 98-107; Units: MEQ/L; Status: F Test: CARBON DIOXIDE LEVEL; Value: 27; Range: 21-32; Units: MEQ/L; Status: F Test: ANION GAP; Value: 4; Range: 8-16; Abnormal: Below low normal; Units: MEQ/L; Status: F Test: CALCIUM LEVEL; Value: 8.0; Range: 8.8-10.2; Abnormal: Below low normal; Units: MG/DL; Status: F Test Note: ; Units are mL/min/1.73 m2 Chronic Kidney Disease Staging per NKF: Stage I & II GFR >=60 Normal to Mildly Decreased Stage III GFR 30-59 Moderately Decreased Stage IV GFR 15-29 Severely Decreased Stage V GFR <15 Very Little GFR Left 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 The right lung is clear. The heart is normal in size. The pulmonary; vasculature is normal in appearance.; ; Impression: Left lower lobe atelectasis or scar.; ; ; Signed by; Cale Mcintyre MD 04/13/2016 10:51 A; Radiology Order: CT Chest Without Contrast Test: CT Chest Without Contrast REASON FOR EXAMINATION: cough, chest pain, obesity, COPD; Clinical: Chest pain and cough.; ; Comparison: 05/14/2014.; ; Findings:; Linear chronic-appearing fibroatelectatic changes in the right middle lobe and; left lower lobe identified. The lung oro are otherwise relatively well; aerated and without further consolidation, nodule or mass lesion. No pleural; effusion/reaction or pneumothorax. Tracheobronchial tree is patent. Mediastinum; demonstrates atherosclerotic changes to the coronary arteries and thoracic aorta; without aneurysm or pericardial effusion. No axillary, hilar, or mediastinal; adenopathy. Musculoskeletal structures demonstrate age-related changes without; focal osseous abnormality. Upper abdomen demonstrates normal bilateral adrenal; glands.; ; Impression:; Linear chronic-appearing fibroatelectatic changes in the right middle lobe and; left base. No further acute mediastinal or pleuroparenchymal process; appreciated.; ; ; Signed by; Fred Bill MD 04/13/2016 12:22 P; Outcome: 12:38 Decision to Hospitalize by Provider. pc 20:50 Admitted to PCU accompanied by nurse, on monitor, with chart, Other see all [place] documentation in [facility]. Condition: stable. 20:52 Patient left the ED. rosanna Signatures: Dispatcher [employer] Ramo Reyez MD MD pc Sleeman, Kacey, RN RN kcs Abimbola Otero, Advisor Consultant Unit lbd Arron, Jannet Shore, RN Tavo Stephens, Yvan Reg lg Linda Smith kt1 Libby AdlerRN RN Ligia Rod RN RN mk4 Marlin Azul RN RN ms18 Anderson Roman ys2 Taryn Eng2 Corrections: (The following items were deleted from the chart) 10:31 10:17 Allergies: atrial fib; mk4 mk4 10:55 10:38 BP 70 / 39 Auto; mk4 mk4 Chart Complete MTDD
--- NOTE | 2016-04-15 21:53 | EDDOCDS ---
Physician Documentation [facility] Name: Terell Mujica Age: 60 yrs Sex: Male : 1955 Arrival Date: 04/13/2016 Time: 09:53 Bed 21 Private MD: [facility] Disposition: 04/13 12:35 Critical Care:. pc Disposition: 04/13/16 12:38 Hospitalization ordered by Jessie Barron for Inpatient Admission. Preliminary diagnosis are Hypotension, Acute kidney failure - likely due to Avelox. - Bed requested for PCU. - Status is Inpatient Admission. rosanna - Condition is Stable. - Problem is new. - Symptoms have improved. HPI: 11:29 This 60 yrs old Male presents to ER via Ambulance with complaints of Blood pc Pressure Problem. 11:29 The history is obtained from the patient. He was seen here 2 weeks ago for a cough and pc was diagnosed with pneumonia, with normal labs and CXR. He was sent homeo n ABX and did not feel he was improving. He was seen at his PCP today for a 2 week hospital follow up and was found to be hypotensive, feeling dizzy when he stands. He denies any fevers, sputum production, black stools, chest pain. At their worst, the symptoms were moderate. In the emergency department, the symptoms are mild. The patient has not experienced similar symptoms in the past. Historical: - Allergies: no known allergies; - Home Meds: 1. albuterol sulfate 2.5 mg /3 mL (0.083 %) Inhl nebu prn (Last dose: 04/13/2016 07:00) 2. albuterol sulfate 90 mcg/actuation Inhl aepb 1 puff every 4-6 hours (Last dose: 04/13/2016 07:00) 3. allopurinol 100 mg Oral tab 2 tabs once daily (Last dose: 04/13/2016 07:00) 4. atorvastatin 40 mg oral tab once daily (Last dose: 04/13/2016 07:00) 5. budesonide-formoterol 80-4.5 mcg/actuation inhalation HFAA 2 times per day (Last dose: 04/13/2016 07:00) 6. carvedilol 25 mg oral tab 2 times per day (Last dose: 04/13/2016 07:00) 7. lisinopril 20 mg Oral tab once daily (Last dose: 04/13/2016 07:00) 8. magnesium oxide 400 mg Oral cap twice a day (Last dose: 04/13/2016 07:00) 9. potassium chloride 10 mEq Oral cpER 2 caps 2 times per day (Last dose: 04/13/2016 07:00) 10. spironolactone 50 mg oral tab .5 tab 2 times per day (Last dose: 04/13/2016 07:00) 11. tiotropium bromide 18 mcg inhalation CpDv once daily (Last dose: 04/13/2016 07:00) 12. Eliquis 5 mg oral tab 1 tab 2 times per day (Last dose: 04/13/2016 07:00) 13. Lasix 80 mg Oral tab 2 tabs 2 times per day (Last dose: 04/13/2016 07:00) 14. colchicine 0.6 mg oral cap as needed for Gout - PMHx: Asthma; Cancer, Testicular- Right; DVT; Pneumonia; Atrial Fib; Gout; Hypertension; Hypercholesterolemia; hypokalemia; morbid obesity; - PSHx: , right orchiectomy testicular cancer; Heart catherization; [place] Filter Placement; Hernia repair- Left inguinal; - The history from nurses notes was reviewed: and I agree with what is documented. - Social history: Smoking status: Patient states was never smoker of tobacco. No barriers to communication noted, The patient speaks fluent [place]. - Family history: Not pertinent. - : The pt / caregiver states he / she is on anticoagulants: Eliquis Home medication list is obtained from the patient. - Hospitalizations: : No recent hospitalization is reported. - Exposure Risk Screening:: None identified. - Immunization history:: All immunizations up-to-date. - Social history:: the patient is a non-smoker, the patient does not drink alcohol. ROS: 11:29 All systems are negative except as listed. pc Exam: 11:29 General Appearance: no acute distress, alert. pc 11:29 EENT: normal eye inspection, ears, nose and throat normal, pharynx normal, mucous membranes moist 11:29 Neck: The exam reveals no acute abnormalities. ROM is normal and painless. No nuchal rigidity is noted.. 11:29 Respiratory: no respiratory distress, normal breath sounds. 11:29 CVS: regular pulse rate, regular rhythm, normal S1 and S2, no murmurs, strong peripheral pulses, normal capillary refill. 11:29 Abdomen: soft, non-tender, no organomegaly, normal bowel sounds. 11:29 Back: normal inspection. 11:29 Skin: skin color is normal, warm, dry. 11:29 Extremities: The extremities have a grossly normal appearance, are non-tender, without acute ROM abnormalities. 11:29 Neuro: oriented x 3, cranial nerves normal as tested, no motor deficits, no sensory deficits. 11:29 Psych: normal mood. Vital Signs: 10:01 BP 112 / 52 (auto/); mk4 10:02 BP 85 / 51; Pulse 60; Resp 18; Temp 97.0(O); Pulse Ox 96% on 4 lpm NC; Weight 147.42 kg nb2 / 325.01 lbs (R); Height 6 ft. 3 in. (190.50 cm) (R); Pain 4/10; 10:02 Pulse 74 MON; Pulse Ox 97% ; mk4 10:16 BP 102 / 60 (auto/); mk4 10:16 Pulse 68 MON; Pulse Ox 96% ; mk4 10:30 Pulse 66 MON; Pulse Ox 95% ; mk4 10:31 BP 66 / 32 (auto/); mk4 10:38 Pulse 66 MON; Pulse Ox 95% ; mk4 10:38 BP 70 / 39 (auto/); mk4 10:46 BP 83 / 44 (auto/); mk4 10:46 Pulse 64 MON; Pulse Ox 96% on 2 lpm NC; mk4 10:54 BP 94 / 52 (auto/); mk4 10:54 Pulse 62 MON; Pulse Ox 97% ; mk4 11:17 BP 105 / 55 (auto/); ms18 11:19 Pulse 68 MON; Resp 18; Pulse Ox 96% ; ms18 11:46 BP 74 / 50 (auto/); ms18 11:46 Pulse 74 MON; Pulse Ox 95% ; ms18 12:01 Pulse 74 MON; Pulse Ox 96% ; ms18 12:01 BP 73 / 39 (auto/); ms18 12:06 Pulse 72 MON; Pulse Ox 93% ; ms18 12:08 BP 78 / 50 (auto/); ms18 12:16 BP 88 / 63 (auto/); ms18 12:18 Pulse 66 MON; Pulse Ox 93% ; ms18 12:28 Pulse 68 MON; Pulse Ox 94% ; ms18 12:31 BP 85 / 50 (auto/); ms18 12:43 BP 109 / 62 (auto/); ms18 12:44 Pulse 72 MON; Pulse Ox 94% ; ms18 12:46 BP 113 / 61 (auto/); ms18 12:47 Pulse 74 MON; Pulse Ox 95% ; ms18 13:01 BP 109 / 76 (auto/); ms18 13:01 Pulse 72 MON; Pulse Ox 93% ; ms18 13:16 BP 110 / 58 (auto/); ms18 13:16 Pulse 70 MON; Pulse Ox 90% ; ms18 13:31 BP 110 / 62 (auto/); ms18 13:32 Pulse 72 MON; Pulse Ox 93% ; ms18 13:46 BP 107 / 76 (auto/); ms18 13:46 Pulse 86 MON; Pulse Ox 93% ; ms18 13:59 Pulse 68 MON; Pulse Ox 93% ; ms18 14:00 Pulse 72 MON; Pulse Ox 92% ; ms18 14:01 BP 116 / 72 (auto/); ms18 14:14 Pulse 80 MON; Pulse Ox 94% ; ms18 14:15 Pulse 78 MON; Pulse Ox 93% ; ms18 14:16 BP 99 / 63 (auto/); ms18 14:46 BP 114 / 74 (auto/); ms18 14:52 Pulse 80 MON; Pulse Ox 92% ; ms18 10:02 Body Mass Index 40.62 (147.42 kg, 190.50 cm) nb2 10:[address] Fuller orders recieved mk4 MDM: 10:05 ECG WITH READING ER PHYS+CARDIAG ordered. EDMS 10:30 Solu-MEDROL 125 mg IVP once ordered. pc 10:30 -Blood Culture (Adults Only), peripheral from different site, or from device/port/PICC pc etc. if present ordered. 10:30 Call Respiratory ordered. pc 10:30 Paraffin Plant Operator/Pulse Ox/q 15 min VS ordered. pc 10:30 IV Saline Lock ordered. pc 10:30 Oxygen at 4L/Min NC or Home dosage ordered. pc 10:30 Rhythm Strip to chart ordered. pc 10:30 -Arterial Blood Gas Ordered. EDMS 10:30 -Blood Culture Ordered. EDMS 10:30 B-Type Natiuretic Peptide Ordered. EDMS 10:30 Basic Metabolic Profile Ordered. EDMS 10:30 CBC with Diff Ordered. EDMS 10:30 Cardiac Injury Profile Ordered. EDMS 10:30 Troponin Ordered. EDMS 10:31 Chest, 1 View Ordered. EDMS 10:37 NS 0.9% 1000 ml IV at bolus once ordered. pc 10:37 IV Saline Lock ordered. pc 10:38 Lactic Acid (Cedeno tube on ice) Ordered. EDMS 10:39 Call Respiratory complete. dsf 10:59 -Blood Culture (Adults Only), peripheral from different site, or from device/port/PICC lbd etc. if present complete. 11:02 BLOOD CULTURES Ordered. EDMS 11:09 Test interpretation: EKG. pc 11:10 Financial registration complete. lg 11:10 -Arterial Blood Gas Reviewed. pc 11:10 CBC with Diff Reviewed. pc 11:10 Lactic Acid (Cedeno tube on ice) Reviewed. pc 11:29 Differential Diagnosis: hypotension without obvious cause; COPD. Plan: labs, EKG, CXR, pc IVF. 11:40 Basic Metabolic Profile Reviewed. pc 11:40 Cardiac Injury Profile Reviewed. pc 11:40 Troponin Reviewed. pc 11:40 Chest, 1 View Reviewed. pc 11:43 BED REQUEST+ADM ordered. EDMS 11:53 CT Chest Without Contrast Ordered. EDMS 12:17 B-Type Natiuretic Peptide Reviewed. pc 12:35 Data reviewed: old medical records, vital signs, nurses notes, EKG(s), lab test pc results, all radiology studies and available results. Test interpretation: LAB - all labs as ordered have been reviewed, interpreted and considered in the overall management of the clinical presentation; Arterial blood gas is normal. X-RAY - interpreted by Radiologist and personally reviewed, 1 view chest no acute disease. The patient has been re-examined and re-evaluated. The patient's symptoms have markedly improved after treatment, with his BP 110/52. Physician consultation: Dr. Jessie Barron regarding admission. Disposition: The historical points, examination findings, and any diagnostic results supporting the provided diagnosis, were discussed with the patient or legal guardian. The need for further work-up and/or treatment in the hospital was explained. 12:46 [facility] [place] Agreement was scanned into [employer] and attached to record. lg 13:03 Admission / Observation Status ordered. EDMS 13:03 2 GRAM SODIUM DIET ordered. EDMS 13:32 BASIC METABOLIC PROFILE Ordered. EDMS 13:35 NS 0.9% 1000 ml IV at bolus once ordered. pc 19:32 COMPLETE BLOOD COUNT Ordered. EDMS 19:32 BASIC METABOLIC PROFILE Ordered. EDMS EC:09 Rate is 79 beats/min. Rhythm is irregularly irregular, A fib. QRS Chloride is Normal. NE pc interval is normal. QRS interval is normal. QT interval is normal. Q waves are Old in leads III, aVF. T waves are Normal. No ST changes noted. Clinical impression: Atrial Fibrillation w/o RVR and Inferior [place] - age indeterminate. No change from previous ECG in February,. Administered Medications: 10:38 Drug: Solu-MEDROL 125 mg [Solu-Medrol 500 mg intravenous solution (125 mg)] Route: IVP; dsf Site: left antecubital; 10:49 Drug: NS 0.9% 1000 ml [sodium chloride 0.9 % intravenous solution] Route: IV; Rate: mk4 bolus; Site: left antecubital; 12:21 Follow up: IV Status: Completed infusion; IV Intake: 1000ml ms18 13:47 Drug: NS 0.9% 1000 ml [sodium chloride 0.9 % intravenous solution] Route: IV; Rate: ms18 bolus; Site: left antecubital; 15:18 Follow up: IV Status: Completed infusion; IV Intake: 1000ml ms18 Critical Care Time: 12:35 Critical care time: Bedside Care: 20 minutes, Consultation: 10 minutes. Total time: 30 pc minutes Signatures: Dispatcher [employer] EDWV Ramo Fuller MD MD pc Daly, Linda, [employer] Operator Unit lbd Jannet Heller RN Tavo Stephens, Yvan Reg lg Libby Adler RN RN dsf King, Margaret, RN RN [facility] Michael Melendez RN RN mts Smith, Mallory RN [id number] The chart was reviewed and I authenticate all verbal orders and agree with the evaluation and treatment provided.Corrections: (The following items were deleted from the chart) 10:31 10:17 Allergies: atrial fib; mk4 mk4 Attachments: 12:46 [facility] Payment Agreement lg Chart Complete MTDD
[2016-04-15 22:00] VITALS: BP 129/59
[2016-04-16 06:00] VITALS: BP 157/77
[2016-04-16 06:15] LABS: MEAN CORPUSCULAR HEMOGLOBIN 31.2 pg (27.0-33.0); MEAN CORPUSCULAR HGB CONC 32.3 g/dl (32.0-36.5); MEAN CORPUSCULAR VOLUME 96.6 fl (80.0-96.0); RED CELL DISTRIBUTION WIDTH 12.7 % (11.5-14.5); WHITE BLOOD COUNT 4.9 K/mm3 (4.0-10.0)
[2016-04-16 06:33] LABS: ANION GAP 4 MEQ/L (8-16); BLOOD UREA NITROGEN 15 MG/DL (7-18); CALCIUM LEVEL 8.2 MG/DL (8.8-10.2); CARBON DIOXIDE LEVEL 31 MEQ/L (21-32); CHLORIDE LEVEL 109 MEQ/L (98-107); CREATININE FOR GFR 0.98 MG/DL (0.70-1.30); GLOMERULAR FILTRATION RATE > 60.0 (>49); GLUCOSE, FASTING 90 MG/DL (80-110); POTASSIUM SERUM 4.8 MEQ/L (3.5-5.1); SODIUM LEVEL 144 MEQ/L (136-145)
[2016-04-16] MEDS: TIOTROPIUM INHALER/CAPSULE (SPIRIVA) INH SCH (07:16)
[2016-04-16] MEDS: SYMBICORT 80/4.5MCG INHALER 6GM INH SCH ×2 (07:17→21:08)
[2016-04-16] MEDS: ALBUTEROL SULFATE 2.5 MG/0.5 ML INH NEB SOLN NEB SCH ×4 (07:17→20:00)
[2016-04-16] MEDS ORDERED: FUROSEMIDE 80 MG TAB PO SCH (09:00)
[2016-04-16] MEDS: VITAMIN D 1,000 INTERNATIONAL UNITS TABLET PO SCH (09:44)
[2016-04-16] MEDS: FUROSEMIDE 80 MG TAB PO SCH ×2 (09:44→16:07)
[2016-04-16] MEDS: MAGNESIUM OXIDE 400 MG TAB (MAG-OX) PO SCH ×2 (09:44→21:10)
[2016-04-16] MEDS: APIXABAN 5 MG TAB (ELIQUIS) PO SCH ×2 (09:44→21:12)
[2016-04-16] MEDS: ATORVASTATIN 20 MG TAB PO SCH (09:44)
[2016-04-16] MEDS: SPIRONOLACTONE 25 MG TAB PO SCH ×2 (09:44→16:07)
[2016-04-16] MEDS: CARVedilol 12.5 MG TAB PO SCH ×2 (09:45→21:12)
[2016-04-16 14:00] VITALS: BP 135/79
--- NOTE | 2016-04-16 15:43 | REP ---
ABDOMEN, FLAT UPRIGHT PA CHEST: HISTORY: Distension. A small amount of air is present in the small amount of air is present in small and large intestine. Several air fluid levels are present. There are no dilated loops of intestine. There is no pneumoperitoneum. Multiple surgical clips and a vena cava filter are present. Linear density is present in the left lower lobe consistent with scar. Linear density is present in the right lower lobe consistent with atelectasis. IMPRESSION: 1. Nonspecific bowel gas pattern. 2. Left lower lobe scar. 3. Right lower lobe atelectasis. Signed by Cale Mcintyre MD 04/16/2016 03:44 P
--- NOTE | 2016-04-16 20:56 | IPN ---
DATE: 04/16/2016 Mr. Mujica is complaining of some abdominal distention today. No chest pain, a little short of breath. Unfortunately the nighttime pulse oximeter did not work last evening. Temperature 97.6, pulse 84, respiratory rate 20, blood pressure 157/77, 95% on room air. Intake and output notable for a positive fluid balance of 120, no bowel movements noted. He is awake, appropriately interactive, pleasantly conversant, somewhat more energetic than yesterday. Mucous membranes moist. Neck supple. Breathing is symmetrical and rested. Heart is in a regular rate and rhythm. Abdomen is soft, doughy, is distended, tympanic, but nontender. Sodium 144, BUN 15, creatinine 0.98, white cell count 4.9, hemoglobin 11.8, platelets 114. My assessment is as follows: This is a 60-year-old who presented with: 1. Hypotension and dehydration, which are improving. 2. The patient has resolved acute renal failure. This is thought to be related to a combination of medication effect, hypotension, and acute respiratory illness. 3. Respiratory. The patient has obstructive sleep apnea and has been having difficulty with compliance with his continuous positive airway pressure (CPAP) device as he is having difficulty getting good seals. He has plans for followup with [facility] Nocturnal oximetry from last night failed, will plan to repeat tonight. Also, will ambulate on room air today to see if he needs oxygen with ambulation. 4. The patient has atrial fibrillation and is anticoagulated. 5. The patient has hypertension by history, it is reasonably well controlled, not on any anti-hypertensives. Dr. Sauer is restarting blood pressure medications today to monitor his response to those medications as an inpatient. 6. The patient has coronary artery disease. 7. The patient has history of cor pulmonale. 8. The patient has history of testicular cancer.
[2016-04-16 21:09] VITALS: O2SAT 96
[2016-04-16] MEDS: GABAPENTIN 100 MG CAP PO SCH (21:10)
[2016-04-16 21:20] VITALS: BP 118/60
--- NOTE | 2016-04-16 21:30 | IPN ---
DATE: 04/16/2016 Mr. Mujica is seen this morning on his bedside. He has a complaint of shortness of breath but denies any chest pain or palpitations. He has no cough, hemoptysis, fever or chills. There is no nausea, vomiting or diarrhea. His IV fluid was stopped yesterday. It is important to note that since admission, all his antihypertensives and diuretics have been on hold due to acute renal failure and hypotension. His kidney function has improved and blood pressure has also improved. PHYSICAL EXAMINATION: The patient is awake and alert and without any acute distress. Temperature 97.6 degrees Fahrenheit, heart rate 84 per minute and respiratory rate 20 per minute. Blood pressure 157/77 mmHg and oxygen saturation 91%. His neck veins are difficult to be assessed due to thick neck. His head is atraumatic. Ears, nose and throat are unremarkable. Heart sounds are distant and regular. Lungs have diminished breath sounds bilaterally with bibasilar rales. Abdomen is obese and nontender and without any palpable organomegaly. Extremities have no cyanosis or clubbing. Skin has no rash or ulcers. Neurologically, he has no focal deficit. Today's labs show WBC count 4.9, hemoglobin 11.8 and hematocrit 36.5. Platelets 114. Sodium 144 and potassium 4.8. BUN 15 and creatinine 0.98. Calcium level 8.2 and glucose 90. PROBLEMS: 1. Acute renal failure. Kidney function has improved to almost normal range. His IV fluid has already been stopped. The patient has been off his diuretics and antihypertensives and does have a history of pulmonary hypertension and now complains of shortness of breath. 2. Shortness of breath. This is related to volume overload due to stopping of his diuretics and IV fluids given for low blood pressure. Now his blood pressure has improved. I am going to resume his spironolactone 25 mg once a day and also Lasix with reduced dose of 80 mg twice a day. 3. Hypertension. Blood pressure is high now and all his antihypertensive medications have been on hold since admission. I am going to start him back on half a dose of carvedilol 12.5 mg twice a day and half dose of Lasix 80 mg twice a day. His lisinopril and other antihypertensives will still be on hold. At this point, we will monitor him closely and consider resuming most of his medications in the next 24 hours. I have encouraged the patient to get out of bed and ambulate. We hope that he can be ready for discharge in the next 24 hours.
[2016-04-17 06:00] VITALS: BP 121/74
[2016-04-17 06:09] LABS: ANION GAP 7 MEQ/L (8-16); BLOOD UREA NITROGEN 15 MG/DL (7-18); CALCIUM LEVEL 8.5 MG/DL (8.8-10.2); CARBON DIOXIDE LEVEL 34 MEQ/L (21-32); CHLORIDE LEVEL 102 MEQ/L (98-107); CREATININE FOR GFR 1.01 MG/DL (0.70-1.30); GLOMERULAR FILTRATION RATE > 60.0 (>49); GLUCOSE, FASTING 107 MG/DL (80-110); POTASSIUM SERUM 4.2 MEQ/L (3.5-5.1); SODIUM LEVEL 143 MEQ/L (136-145)
[2016-04-17 06:15] LABS: MEAN CORPUSCULAR HEMOGLOBIN 31.1 pg (27.0-33.0); MEAN CORPUSCULAR HGB CONC 32.7 g/dl (32.0-36.5); RED CELL DISTRIBUTION WIDTH 12.5 % (11.5-14.5); WHITE BLOOD COUNT 5.8 K/mm3 (4.0-10.0)
[2016-04-17] MEDS: SYMBICORT 80/4.5MCG INHALER 6GM INH SCH ×2 (07:55→21:10)
[2016-04-17] MEDS: ALBUTEROL SULFATE 2.5 MG/0.5 ML INH NEB SOLN NEB SCH ×4 (07:56→20:00)
[2016-04-17] MEDS: TIOTROPIUM INHALER/CAPSULE (SPIRIVA) INH SCH (07:56)
[2016-04-17] MEDS: MAGNESIUM OXIDE 400 MG TAB (MAG-OX) PO SCH ×2 (08:39→20:31)
[2016-04-17] MEDS: SPIRONOLACTONE 25 MG TAB PO SCH ×2 (08:39→16:42)
[2016-04-17] MEDS: CARVedilol 12.5 MG TAB PO SCH ×2 (08:39→20:32)
[2016-04-17] MEDS: VITAMIN D 1,000 INTERNATIONAL UNITS TABLET PO SCH (08:39)
[2016-04-17] MEDS: ATORVASTATIN 20 MG TAB PO SCH (08:39)
[2016-04-17] MEDS: APIXABAN 5 MG TAB (ELIQUIS) PO SCH ×2 (08:39→20:31)
[2016-04-17] MEDS: FUROSEMIDE 80 MG TAB PO SCH (08:40)
[2016-04-17] MEDS: predniSONE 20 MG TAB PO SCH ×2 (13:41→20:31)
[2016-04-17 14:00] VITALS: BP 117/59
[2016-04-17 20:25] VITALS: BP 140/89
[2016-04-17] MEDS: GABAPENTIN 100 MG CAP PO SCH (20:31)
[2016-04-17 21:11] VITALS: O2SAT 95
[2016-04-18 05:40] VITALS: BP 133/78
[2016-04-18 06:02] LABS: MEAN CORPUSCULAR HEMOGLOBIN 31.2 pg (27.0-33.0); MEAN CORPUSCULAR HGB CONC 33.1 g/dl (32.0-36.5); MEAN CORPUSCULAR VOLUME 94.3 fl (80.0-96.0); RED CELL DISTRIBUTION WIDTH 12.4 % (11.5-14.5); WHITE BLOOD COUNT 7.5 K/mm3 (4.0-10.0)
[2016-04-18 06:22] LABS: ANION GAP 7 MEQ/L (8-16); BLOOD UREA NITROGEN 15 MG/DL (7-18); CARBON DIOXIDE LEVEL 33 MEQ/L (21-32); CHLORIDE LEVEL 101 MEQ/L (98-107); CREATININE FOR GFR 1.09 MG/DL (0.70-1.30); GLOMERULAR FILTRATION RATE > 60.0 (>49); GLUCOSE, FASTING 134 MG/DL (80-110); POTASSIUM SERUM 4.3 MEQ/L (3.5-5.1); SODIUM LEVEL 141 MEQ/L (136-145)
[2016-04-18] MEDS: ALBUTEROL SULFATE 2.5 MG/0.5 ML INH NEB SOLN NEB SCH ×4 (08:00→20:00)
[2016-04-18] MEDS: SYMBICORT 80/4.5MCG INHALER 6GM INH SCH ×2 (08:55→19:46)
[2016-04-18] MEDS: TIOTROPIUM INHALER/CAPSULE (SPIRIVA) INH SCH (08:55)
[2016-04-18] MEDS: ATORVASTATIN 20 MG TAB PO SCH (09:37)
[2016-04-18] MEDS: predniSONE 20 MG TAB PO SCH ×2 (09:37→21:33)
[2016-04-18] MEDS: MAGNESIUM OXIDE 400 MG TAB (MAG-OX) PO SCH ×2 (09:38→21:33)
[2016-04-18] MEDS: FUROSEMIDE 80 MG TAB PO SCH (09:38)
[2016-04-18] MEDS: SPIRONOLACTONE 25 MG TAB PO SCH ×2 (09:38→17:37)
[2016-04-18] MEDS: APIXABAN 5 MG TAB (ELIQUIS) PO SCH ×2 (09:39→21:33)
[2016-04-18] MEDS: VITAMIN D 1,000 INTERNATIONAL UNITS TABLET PO SCH (09:40)
[2016-04-18] MEDS: CARVedilol 12.5 MG TAB PO SCH ×2 (09:40→21:33)
[2016-04-18 14:00] VITALS: BP 129/71
[2016-04-18] MEDS: GABAPENTIN 100 MG CAP PO SCH (21:33)
[2016-04-18 22:00] VITALS: BP 134/68
[2016-04-19 06:00] VITALS: BP 141/80
[2016-04-19 06:29] LABS: MEAN CORPUSCULAR HEMOGLOBIN 31.7 pg (27.0-33.0); MEAN CORPUSCULAR HGB CONC 33.4 g/dl (32.0-36.5); MEAN CORPUSCULAR VOLUME 94.7 fl (80.0-96.0); RED CELL DISTRIBUTION WIDTH 12.7 % (11.5-14.5); WHITE BLOOD COUNT 6.6 K/mm3 (4.0-10.0)
[2016-04-19 06:30] LABS: ANION GAP 5 MEQ/L (8-16); BLOOD UREA NITROGEN 17 MG/DL (7-18); CALCIUM LEVEL 8.3 MG/DL (8.8-10.2); CARBON DIOXIDE LEVEL 33 MEQ/L (21-32); CHLORIDE LEVEL 102 MEQ/L (98-107); CREATININE FOR GFR 0.95 MG/DL (0.70-1.30); GLOMERULAR FILTRATION RATE > 60.0 (>49); GLUCOSE, FASTING 134 MG/DL (80-110); POTASSIUM SERUM 4.4 MEQ/L (3.5-5.1); SODIUM LEVEL 140 MEQ/L (136-145)
--- NOTE | 2016-04-19 07:36 | IPN ---
DATE: 04/17/2016 Mr. Mujica is feeling better today. He is somewhat less short of breath. He was out and walking laps in the hallway yesterday. Temperature is 97.1, pulse 92, respiratory rate 18, blood pressure 151/74, 90% on room air. Input and output notable for a negative fluid balance of -2420, two bowel movements yesterday. Weight is 156 kg. He is awake, appropriately interactive. Pleasantly conversant. Breathing is symmetrical, somewhat diminished. Coarse upper airway sounds are noted. Heart: Regular rate and rhythm. Abdomen: Soft, doughy, nontender. White cell count 5.8, hemoglobin 5.6, BUN 15, creatinine 1.01. ASSESSMENT: 1. This is a 60-year-old who presented with hypertension and dehydration which have improved. 2. He has resolved acute renal failure. 3. Respiratory. Patient has obstructive sleep apnea. He has been having difficulty with compliance with CPAP. Nocturnal oxygen study last night showed 19% of the night was spent with a pulse oximetry less than 88% and he qualifies for nocturnal oxygen which will be started tonight at 2 liters at bedtime. Hopefully when he is able to tolerate his home BiPAP, that will no longer be necessary. 4. Atrial fibrillation, anticoagulated. 5. Patient has hypertension by history which is reasonably well controlled. Did restart his antihypertensives which he is tolerating well. 6. Coronary artery disease. 7. Patient has cor pulmonale. 8. Patient has history of testicular cancer. I discussed this case with the attending poultry offal worker who thinks patient might benefit from a course of steroids and continue to be monitored in the hospital which we will continue.
[2016-04-19] MEDS: ALBUTEROL SULFATE 2.5 MG/0.5 ML INH NEB SOLN NEB SCH ×2 (07:55→11:15)
[2016-04-19] MEDS: SYMBICORT 80/4.5MCG INHALER 6GM INH SCH (07:55)
[2016-04-19] MEDS: TIOTROPIUM INHALER/CAPSULE (SPIRIVA) INH SCH (07:55)
--- NOTE | 2016-04-19 09:28 | IPN ---
DATE: 04/17/2016 SUBJECTIVE: Patient was seen and examined at the bedside today in the morning. He is feeling much better today. Patient made almost four liters of urine yesterday; however, he still has a little bit of wheezing at this time despite high-dose of oral diuretics. His creatinine is stable at 1.01 at this point, and his blood pressure is also within acceptable limits. REVIEW OF SYSTEMS: Patient denies any fevers, chills, rigors, headache, nausea, vomiting, or chest pain. He does report wheezing, and he has been getting nebulizations for that. He denies any pain in the abdomen, constipation, or diarrhea. The rest of the review of systems is negative. OBJECTIVE: VITAL SIGNS: Temperature is 97.2 degrees Fahrenheit, blood pressure is 117/59, pulse is 91, respiratory rate of 18, saturating 90% on room air. Intake and output: Urine output was 4220 mL yesterday, and 1900 mL so far today since overnight. Weight in the bed scale is 156 kg. PHYSICAL EXAMINATION: GENERAL: Patient is awake, alert, and oriented times three, lying in the bed. He is morbidly obese, in no apparent distress at this time. HEAD AND NECK EXAM: Pupils equally round and reactive to light. Mucous membranes are moist. Neck is supple. There is no jugular venous distention (JVD). CARDIOVASCULAR: S1, S2 regular rate. No murmur, rub, or gallop. RESPIRATORY: Patient has diffuse expiratory rhonchi all over the lungs, including upper and lower lung zones. Bilaterally equal air entry. ABDOMEN: Soft. Positive bowel sounds. Nontender. No ascites. No organomegaly. EXTREMITIES: No clubbing or cyanosis. Pulses 2+. There is no edema. CENTRAL NERVOUS SYSTEM: No focal neurological deficit. Power is 5/5 in all extremities. SKIN: Patient has multiple skin tattoos, otherwise no rashes or ulcers. PSYCH: Normal mood and affect. LAB REVIEW: CBC showed WBC of 5.8, hemoglobin 12.6, platelets of 132. BMP showed sodium 143, potassium 4.2, chloride 102, bicarbonate 34, BUN 15, creatinine 1.01, calcium is 8.5. IMAGING: X-ray of the abdomen was done yesterday, which showed known specific bowel gas pattern, left lower lobe scar and right lower lobe atelectasis. CURRENT MEDICATIONS: Patient's medications are all reviewed by me. His Lasix has been changed to Lasix 80 mg by mouth daily, and he has been started on prednisone 40 mg by mouth twice a day. There are no other changes in the medications at this time as compared with yesterday. ASSESSMENT: 60-year-old male with acute renal failure secondary to hypotension and volume depletion. Nephrology service following the patient for management of acute kidney injury ([place]) and fluid management. PLAN: 1. Acute kidney injury; it is secondary to volume depletion, dehydration, hypotension on arrival. His blood pressures are better. Renal function has improved back to his baseline. 2. Shortness of breath. It was initially attribute to his volume overload. He was started on diuretics yesterday. Patient is 2.4 liters negative since starting diuretics yesterday; however, he continues to have wheezing despite being on nebulizations. Patient was started on prednisone 40 mg by mouth twice a day today for possible chronic obstructive pulmonary disease (COPD) exacerbation. 3. Hypertension. Patient was restarted on Coreg 12.5 mg by mouth twice a day. The rest of his medications are still on hold. Blood pressure is acceptable at this time. 4. Metabolic alkalosis. Alkalosis might be secondary to intervascular volume depletion and COPD exacerbation. Bicarbonate is 34. I have decreased the diuretic dose to Lasix 80 mg by mouth daily. Continue to monitor intake and output at this time. Plan of care was discussed with the hospitalist team, Dr. Chisholm.
[2016-04-19] MEDS: predniSONE 20 MG TAB PO SCH (09:42)
[2016-04-19] MEDS: SPIRONOLACTONE 25 MG TAB PO SCH (09:42)
[2016-04-19] MEDS: VITAMIN D 1,000 INTERNATIONAL UNITS TABLET PO SCH (09:42)
[2016-04-19] MEDS: ATORVASTATIN 20 MG TAB PO SCH (09:43)
[2016-04-19] MEDS: APIXABAN 5 MG TAB (ELIQUIS) PO SCH (09:43)
[2016-04-19] MEDS: FUROSEMIDE 80 MG TAB PO SCH (09:43)
[2016-04-19] MEDS: MAGNESIUM OXIDE 400 MG TAB (MAG-OX) PO SCH (09:43)
[2016-04-19 09:46] VITALS: BP 130/76
[2016-04-19] MEDS: CARVedilol 12.5 MG TAB PO SCH (09:46)
[2016-04-19] MEDS ORDERED: FURO1TAB15 PO ×2 (11:58→12:03)
[2016-04-19] MEDS ORDERED: DELT1TAB PO ×2 (11:58→12:03)
[2016-04-19] MEDS ORDERED: CARV12.5 PO ×2 (11:58→12:03)
--- NOTE | 2016-04-19 12:48 | NOCOX ---
DATE OF PROCEDURE: 04/16/2016 INTERPRETATION: Recording nocturnal oximetry was performed on room air. A total of 6 hours and 8 minutes of data was reviewed. Mean oxygen saturation for the study was 90% with a minimum recorded value of 74%. He spent 19% (total 1 hour and 10 minutes) of this time with saturations less than 88% with the longest continuous time being 2 minutes and 40 seconds. In the SpO2 waveform there is significant fluctuation strongly suggestive of sleep disordered breathing. IMPRESSION: 1. Nocturnal hypoxemia. Although, he did not desaturate for long continuous stretches his total time with a saturation less than 88% was greater than one hour. 2. Significant fluctuations in the SpO2 waveform strongly suggest of sleep disordered breathing. Clinical correlation will be necessary. JULISA
--- NOTE | 2016-04-19 14:13 | IPN ---
DATE: 04/18/2016 Mr. Mujica is feeling well today. He has no complaints of pain, chest pain, still somewhat short of breath. Has not been up and moving, but would like to get up and moving today. Temperature is 97.5, pulse 78, respiratory rate 18, blood pressure 133/78, 92% on room air. Input and output notable for negative fluid balance of -990, one bowel movement noted. He is awake, appropriately interactive, pleasantly conversant. In no acute distress. Breathing is symmetrical, rested. Some upper airway sounds are noted. Heart is distant sounding, normal S1, S2. Abdomen is distended, somewhat tympanic, but soft and tenderness. White cell count is 7.5, hemoglobin 13.2, BUN 15, creatinine 1.09. Blood culture negative after five days. ASSESSMENT: This is a 60-year-old who presented with hypotension, dehydration, which has resolved. PLAN: 1. The patient has acute renal failure at the time of presentation, which appears to have resolved at this point. This is felt to be related to medication side effect, hypertension, and acute respiratory illness. 2. Respiratory. The patient has obstructive sleep apnea and has been having difficulty with compliance with his BiPAP regimen for 8 years. The case was discussed at length with respiratory therapy at bedside. He is qualified for home oxygen, which cannot be arranged at this point as he receives his respiratory supplies through the [facility]. We will attempt to have his BiPAP brought in from home and we will adjust with the assistance of the respiratory team. We will use a different mask as deemed clinically appropriate. May discharge tomorrow on oxygen or with adjusted BiPAP. 3. The patient has atrial fibrillation and is anticoagulated. 4. The patient's blood pressure is reasonably well controlled on current regimen. 5. The patient has coronary artery disease. 6. The patient has a history of cor pulmonale. 7. The patient has a history of testicular cancer.
--- NOTE | 2016-04-19 23:07 | IPN ---
DATE: 04/18/2016 SUBJECTIVE: The patient was seen and examined at the bedside today in the morning. The shortness of breath and wheezing is much better after starting steroids yesterday. The patient is otherwise afebrile, hemodynamically stable. His creatinine is stable and he has a good urine output. REVIEW OF SYSTEMS: The patient denies any fevers, chills, rigors, headaches, nausea, vomiting, chest pain. His shortness of breath is better. He reports improvement in his wheezing. He denies any nausea, vomiting, pain in abdomen, constipation or diarrhea. The rest of the review of systems is negative. OBJECTIVE: VITAL SIGNS: Temperature is 97.1 degrees Fahrenheit, blood pressure is 129/71, pulse is 81, respiratory rate 18, saturating 91% on room air. Intake and output: Urine output recorded as 2.5 liters yesterday, 1200 mL so far today. Weight in the bed scale is 155.6 kg. PHYSICAL EXAMINATION: GENERAL: The patient is awake, alert and oriented times three. Laying in the bed. No apparent distress. HEAD/NECK: Extraocular muscles intact. Pupils equally round and reactive to light. Mucous membranes are moist. Neck is supple. There is no jugular venous distention (JVD). CARDIOVASCULAR: S1, S2, regular rate. No murmur, rub or gallop. RESPIRATORY: Bilateral equal air entry. Mild expiratory rhonchi bilaterally at the bases which is significantly better than yesterday. ABDOMEN: Soft. Obese, positive bowel sounds. Nontender. No ascites. No organomegaly. EXTREMITIES: No clubbing or cyanosis. Pulses are 2+. No edema. CENTRAL NERVOUS SYSTEM: No focal neurological deficit. Power is 5/5 in all extremities. LAB REVIEW: CBC showed WBC 7.9, hemoglobin 13.2, platelets of 156. BMP showed sodium 141, potassium 4.3, chloride 101, bicarbonate 33. BUN 15, creatinine 1.09. Calcium is 9. CURRENT MEDICATIONS: The patient's medication are all reviewed by me. He was started on Lasix, 80 mg by mouth daily, now the dose was decreased today morning and he was started on prednisone 40 mg by mouth twice a day yesterday. There is no other change in the medication at this time. ASSESSMENT: 60-year-old male with past medical history of chronic obstructive pulmonary disease (COPD), hypertension, admitted this time because of acute kidney injury, volume depletion and hypotension. Nephrology service following the patient for management of acute kidney injury. PLAN: 1. Acute kidney injury. It was secondary to dehydration, volume depletion and hypotension. The patient was initially fluid resuscitated. His medications have been adjusted. His kidney function is improved and his creatinine is 1.09. 2. Hypertension. The patient's blood pressure is acceptable at this time. Continue current dose of Coreg 12.5 mg by mouth twice a day. 3. Acute COPD exacerbation. The patient currently continues to be on nebulization, and prednisone. His rhonchi are significantly better. I have decreased the diuretic dose to 80 mg by mouth daily. There are no signs of fluid overload at this time. If patient's volume status is well optimized by tomorrow, his diuretic dose will be further decreased. The plan of care was discussed with the patient at the bedside.
--- NOTE | 2016-04-20 10:53 | IPN ---
DATE: 04/19/2016 SUBJECTIVE: Patient was seen and examined at the bedside today in the morning. He feels much better. His shortness of breath and wheezing is better. He is hemodynamically stable. His renal function is stable as well. REVIEW OF SYSTEMS: Patient denies any fevers, chills, rigors, headaches, nausea, vomiting, chest pain. His shortness of breath and wheezing is significantly better. He denies any pain in abdomen, constipation, diarrhea. Rest of the review of system is negative. OBJECTIVE: VITAL SIGNS: Temperature is 97.8 degrees Fahrenheit. Blood pressure is 130/76, pulse is 64, respiratory rate of 18, saturating 94% on room air. INTAKE AND OUTPUT: Urine output recorded as 1650 mL yesterday, 925 mL so far today since overnight. Weight on the bed scale is 151.8 kg. PHYSICAL EXAMINATION: GENERAL: Patient is awake, alert, oriented times three, laying in the bed, in no apparent distress. HEAD AND NECK EXAM: Extraocular muscles intact. Pupils equally round and reactive to light. Mucous membranes are moist. Neck is supple. There is no jugular venous distention (JVD). CARDIOVASCULAR: S1, S2, regular rate. No murmur, rub or gallop. RESPIRATORY: Patient has mild end expiratory rhonchi at the bases, which is significantly better as compared with yesterday. ABDOMEN: Is obese, soft. Positive bowel sounds. Nontender. Positive old surgical scar. EXTREMITIES: No clubbing or cyanosis. Pulses are 2+. There is no edema. CENTRAL NERVOUS SYSTEM ([employer]): No focal neurological deficit. Power is 5/5 in all extremities. PSYCHIATRIC: Normal mood and affect. LABORATORY REVIEW: CBC showed WBC 6.6, hemoglobin 12.7, platelets of 155. BMP showed sodium 140, potassium 4.4, chloride 102, bicarbonate 33, BUN 17, creatinine 0.95. Calcium is 8.3. CURRENT MEDICATIONS: Patient's medications were all reviewed by me. There is no change in the medications today as compared with yesterday. ASSESSMENT: 60-year-old male with acute renal failure secondary to hypotension and volume depletion. Nephrology service following the patient for management of acute kidney injury and hypertension. PLAN: 1. Acute kidney injury. Patient's renal function has improved back to his baseline. 2. Shortness of breath. Shortness of breath is secondary to chronic obstructive pulmonary disease (COPD) exacerbation. His volume status is well optimized. Continue the steroids and nebulizations as per primary team. Continue current dose of Lasix 80 mg by mouth once a day only. 3. Hypertension. Patient's blood pressure is acceptable at this time. Continue current dose of Coreg 12.5 mg by mouth twice a day. DISCHARGE PLANNING: It is okay to discharge the patient from nephrology standpoint. Patient's renal function has normalized at this time.
--- NOTE | 2016-04-20 14:01 | NOCOX ---
DATE OF PROCEDURE: 04/18/2016 Recording nocturnal oximetry was to be performed on CPAP with no oxygen bleed in. Unfortunately, he started on the CPAP device and then had taken his machine off at some point in time and then replaced it at some point in time. When he was off the CPAP device, he was on room air. It is already known that he has nocturnal hypoxemia. For this study, 6 hours and 26 minutes of data was reviewed with a mean oxygen saturation of 90%, oxygen saturation carissa is listed at 71%. He spent 12.9% of this time (50 minutes) of saturations less than 88% with the longest period of time being 5 minutes. There were significant fluctuations in the SpO2 waveform with a few regions with minimal fluctuation. IMPRESSION: 1. Nocturnal hypoxemia. 2. There remains significant fluctuation in the SpO2 waveform suggestive of sleep disorder breathing. It is difficult to tell what time he was on the CPAP and what time he was off to know whether these fluctuations were lessened/eliminated on CPAP therapy.
--- NOTE | 2016-04-20 14:45 | DSES ---
DATE OF ADMISSION: 04/13/2016 DATE OF DISCHARGE: 04/19/2016 SPECIALISTS INVOLVE IN CARE: Dr. Sauer, Dr. Rangel COMPLICATIONS: None. PROCEDURES: None. DISCHARGE DIAGNOSES: 1. Acute renal failure. 2. Hyperkalemia. 3. Congestive heart failure. 4. Pulmonary hypertension. 5. Obstructive sleep apnea. 6. Nocturnal hypoxemia. 7. Atrial fibrillation, on anticoagulation. 8. Coronary artery disease. 9. Cor pulmonale. 10. History of testicular cancer. 11. History of bilateral pulmonary emboli. 12. Hyperlipidemia. 13. Pulmonary hypertension. 14. Nonsustained ventricular tachycardia (VT). 15. Asthma. SUMMARY OF HOSPITALIZATION: This is a 60-year-old patient of the [facility] who presented with hypotension. He had been experiencing shortness of breath and had been treated with an outpatient course of antibiotics, was found to be hypotensive and likely dehydrated. Was treated with intravenous (IV) fluids. Renal consult was obtained. Hyperkalemia resolved. He was restarted on his home medications at reduced dose, which he seemed to tolerate. He was also given a short course of steroids, which improved his breathing. He was able to ambulate in the hallway, up to 250 feet without difficulty, although that is not recorded accurately in the medical record. He was also seen by respiratory therapy and was given assistance in using his bilevel positive airway pressure (BiPAP) device, which he has had variable compliance with. He had nocturnal oximetry studies done which showed that he needed oxygen when he was not wearing his BiPAP, so we have been encouraging to wear his BiPAP and, in fact, have given him a prescription for outpatient oxygen, should he not be able to tolerate his BiPAP. On day of discharge, temperature is 97.8, pulse 78, respiratory rate 19, blood pressure 130/76, 91% on room air. Intake and output (I and O) notable for a negative fluid balance of -570. Weight is 151 kilos. He is awake, appropriately interactive, pleasantly conversant. Breathing is symmetrical. Some upper airway sounds noted. No wheezes, rales or rhonchi. Heart is in regular rate and rhythm. Abdomen is soft, doughy and nontender. White cell count is 6.6, hemoglobin 12.7. BUN 17. DISCHARGE INSTRUCTIONS: 1. Recommend following up with the [facility] [place] [place] pulmonology as scheduled. We are unable to make those appointments today, as government offices are closed on . 2. Activity as tolerated. 3. He needs to wear his BiPAP all night. 4. Continue diet as tolerated. MEDICATIONS AT TIME OF DISCHARGE: - Coreg 12.5 mg by mouth twice a day - prednisone 40 mg by mouth daily for five days - Lasix 80 mg by mouth daily - He is to continue albuterol 2 puffs four times a day as needed for shortness of breath - DuoNebs inhaled four times a day as needed for shortness of breath - allopurinol 200 mg by mouth daily - Eliquis 5 mg by mouth twice a day - atorvastatin 40 mg by mouth daily - Symbicort 2 puffs inhaled twice a day - vitamin D supplement 2000 units by mouth daily - colchicine 1.2 mg as needed for flare - Neurontin 400 mg by mouth daily at bedtime - magnesium oxide 400 mg by mouth twice a day - spironolactone 25 mg by mouth twice a day - Spiriva inhaled daily We have discontinued his Coreg 25 mg We have discontinued his Lasix 160 mg twice a day We have discontinued his potassium supplement
== END 2016-04-19 14:30 | disposition home or self-care (01) | DRG 683 ==
LOC: M ED 09:53 → M ED INP 13:00 → M PCU 20:24 → M MSPAV 04-14 22:20
PROVIDERS: ADMIT Internal Medicine; ATTEND Internal Medicine
DX: N17.9 Acute kidney failure, unspecified (principal); I47.2 Ventricular tachycardia; J44.1 Chronic obstructive pulmonary disease with (acute) exacerbation; E87.5 Hyperkalemia; I50.9 Heart failure, unspecified; G47.33 Obstructive sleep apnea (adult) (pediatric); I25.10 Atherosclerotic heart disease of native coronary artery without angina pectoris; J45.909 Unspecified asthma, uncomplicated; E78.5 Hyperlipidemia, unspecified; I48.91 Unspecified atrial fibrillation; Z79.01 Long term (current) use of anticoagulants; I27.2 Other secondary pulmonary hypertension; Z85.47 Personal history of malignant neoplasm of testis; Z86.711 Personal history of pulmonary embolism; I95.9 Hypotension, unspecified; Z79.899 Other long term (current) drug therapy; M10.9 Gout, unspecified; E66.01 Morbid (severe) obesity due to excess calories; Z87.891 Personal history of nicotine dependence; E86.0 Dehydration; N18.9 Chronic kidney disease, unspecified

== ENCOUNTER 2016-05-07 21:33 | Emergency (ER) | payer OTHER ==
[~2016-05-07] VITALS: Ht 190.5 cm; Wt 113.4 kg
[~2016-05-07 21:33] MED LIST changes: +ALLO100T PO; +ATOR40TA PO; +CARV12.5 PO; +CARV25TA PO; +COLC1TAB13 PO; +DELT1TAB PO; +FURO1TAB15 PO; +GABA-279 PO; +IPRASOL4 INH; +LISI-538 PO; +SPIR25TA2 PO; +SYMB80INH INH; +VITA20008 PO
[2016-05-07 22:41] LABS: VENOUS BASE EXCESS 2.1 (-2.0-2.0); VENOUS O2 SATURATION 83.4 % (60.0-80.0); VENOUS PARTIAL PRESSURE CO2 59.1 mmHg (38.0-50.0); VENOUS PARTIAL PRESSURE O2 53.4 mmHg (30.0-50.0); VENOUS STANDARD HCO3 25.9 MEQ/L; VENOUS TOTAL CO2 31.7 MEQ/L (24.0-28.0)
[2016-05-07 22:46] LABS: INR 1.03
[2016-05-07 22:47] LABS: BASO % 0.3 % (0.0-1.0); EOS % 0.3 % (0.0-3.0); LARGE UNSTAINED CELL # 0.2 K/mm3 (0.0-0.4); LARGE UNSTAINED CELL % 1.8 % (0.0-4.0); LYMPH # 1.7 K/mm3 (1.5-4.5); LYMPH % 18.4 % (24.0-44.0); MEAN CORPUSCULAR HEMOGLOBIN 30.6 pg (27.0-33.0); MEAN CORPUSCULAR HGB CONC 32.7 g/dl (32.0-36.5); MEAN CORPUSCULAR VOLUME 93.7 fl (80.0-96.0); MONO # 0.4 K/mm3 (0.0-0.8); MONO % 4.3 % (0.0-5.0); NEUTROPHILS # 6.7 K/mm3 (1.8-7.7); NEUTROPHILS % 74.9 % (36.0-66.0); PLATELET COUNT, AUTOMATED 203 k/mm3 (150-450); RED CELL DISTRIBUTION WIDTH 12.8 % (11.5-14.5)
[2016-05-07 23:09] LABS: ALBUMIN 3.6 GM/DL (3.2-5.2); ALBUMIN/GLOBULIN RATIO 1.16 (1.00-1.93); ALKALINE PHOSPHATASE 64 U/L (45-117); ALT/SGPT 36 U/L (12-78); AMYLASE 39 U/L (25-115); ANION GAP 12 MEQ/L (8-16); AST/SGOT 23 U/L (15-37); BILIRUBIN,DIRECT 0.2 MG/DL (0.0-0.2); BILIRUBIN,TOTAL 0.4 MG/DL (0.2-1.0); BLOOD UREA NITROGEN 23 MG/DL (7-18); CALCIUM LEVEL 8.5 MG/DL (8.8-10.2); CARBON DIOXIDE LEVEL 31 MEQ/L (21-32); CHLORIDE LEVEL 98 MEQ/L (98-107); CREATININE FOR GFR 1.16 MG/DL (0.70-1.30); GLOMERULAR FILTRATION RATE > 60.0 (>49); GLUCOSE, FASTING 109 MG/DL (80-110); SODIUM LEVEL 141 MEQ/L (136-145); TOTAL PROTEIN 6.7 GM/DL (6.4-8.2)
[2016-05-07 23:10] LABS: METHADONE URINE NEGATIVE (NEGATIVE)
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
[2016-05-08] MEDS ORDERED: POTASSIUM CHLORIDE 10 MEQ SR TABLET PO ONE (00:45)
[2016-05-08 01:00] VITALS: BP 136/78
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
== END 2016-05-08 01:16 | disposition home or self-care (01) ==
LOC: EDBD 21:33 → M ED 22:53
DX: Z04.1 Encounter for examination and observation following transport accident (principal); V48.5XXA Car driver injured in noncollision transport accident in traffic accident, initial encounter; Y92.410 Unspecified street and highway as the place of occurrence of the external cause; Y93.9 Activity, unspecified; Y99.9 Unspecified external cause status; F10.129 Alcohol abuse with intoxication, unspecified; E87.6 Hypokalemia; M47.9 Spondylosis, unspecified; Z79.899 Other long term (current) drug therapy
CPT/HCPCS: 36415; 70450; 71010; 72125; 80048; 80076; 80306; 81001; 82150; 82550; 82553; 82803; 83605; 83690; 85025; 85610; 85730; 86850; 86900; 86901; 93041; 99285; G0480

== ENCOUNTER 2016-08-11 09:45 | Inpatient (IN) | payer OTHER ==
[~2016-08-11] VITALS: Ht 190.5 cm; Wt 153.0 kg
[2016-08-11] MEDS ORDERED: FURO1TAB15 PO (10:01)
[2016-08-11] MEDS ORDERED: ONDANSETRON 4MG/2ML VIAL (J2405) IV ONE (10:45)
[2016-08-11] MEDS ORDERED: GASTROGRAFIN SOLUTION 30ML PO ONE (11:00)
[2016-08-11] MEDS: NS 1,000 ML IV SCH ×2 (11:20→11:43)
[2016-08-11] MEDS ORDERED: GASTROGRAFIN SOLUTION 30ML (Q9963) PO ONE (11:30)
[2016-08-11] MEDS: MORPHINE 4 MG/ML 1ML SYRINGE IV PRN (11:43)
[2016-08-11 11:53] LABS: ALBUMIN 3.2 GM/DL (3.2-5.2); ALBUMIN/GLOBULIN RATIO 0.91 (1.00-1.93); ALKALINE PHOSPHATASE 75 U/L (45-117); ALT/SGPT 17 U/L (12-78); ANION GAP 5 MEQ/L (8-16); AST/SGOT 7 U/L (15-37); BILIRUBIN,DIRECT 0.2 MG/DL (0.0-0.2); BILIRUBIN,TOTAL 0.7 MG/DL (0.2-1.0); BLOOD UREA NITROGEN 13 MG/DL (7-18); CALCIUM LEVEL 9.2 MG/DL (8.8-10.2); CARBON DIOXIDE LEVEL 35 MEQ/L (21-32); CHLORIDE LEVEL 103 MEQ/L (98-107); GLOMERULAR FILTRATION RATE > 60.0 (>49); GLUCOSE, FASTING 106 MG/DL (80-110); INR 1.08; POTASSIUM SERUM 3.6 MEQ/L (3.5-5.1); SODIUM LEVEL 143 MEQ/L (136-145); TOTAL PROTEIN 6.7 GM/DL (6.4-8.2)
[2016-08-11 11:58] LABS: BASO # 0.1 K/mm3 (0.0-0.2); EOS # 0.1 K/mm3 (0.0-0.50); EOS % 1.6 % (0.0-3.0); LARGE UNSTAINED CELL # 0.1 K/mm3 (0.0-0.4); LARGE UNSTAINED CELL % 1.7 % (0.0-4.0); LYMPH # 1.4 K/mm3 (1.5-4.5); LYMPH % 21.9 % (24.0-44.0); MEAN CORPUSCULAR HEMOGLOBIN 31.1 pg (27.0-33.0); MEAN CORPUSCULAR HGB CONC 33.5 g/dl (32.0-36.5); MONO # 0.4 K/mm3 (0.0-0.8); MONO % 6.7 % (0.0-5.0); NEUTROPHILS # 3.9 K/mm3 (1.8-7.7); NEUTROPHILS % 67.1 % (36.0-66.0); PLATELET COUNT, AUTOMATED 165 k/mm3 (150-450); RED CELL DISTRIBUTION WIDTH 12.5 % (11.5-14.5); WHITE BLOOD COUNT 5.8 K/mm3 (4.0-10.0)
[2016-08-11] MEDS ORDERED: ALBUTEROL SULFATE 2.5 MG/0.5 ML INH NEB SOLN INH PRN (12:00)
[2016-08-11] MEDS ORDERED: ISOVUE-370 76% 100ML VIAL (Q9967) As Ordered ONE (12:09)
[2016-08-11] MEDS ORDERED: ALBUTEROL 90 MCG/ACT 8GM HFA INHALER INH PRN (13:00)
--- NOTE | 2016-08-11 13:15 | REP ---
CT ABDOMEN AND PELVIS WITH CONTRAST: TECHNIQUE: Axial contrast enhanced images from the lung bases to the pubic symphysis using 100 mL Isovue 370 intravenous contrast material with multiplanar reformations. The visualized lung bases demonstrate bibasilar fibroatelectatic change. The liver demonstrates a couple of tiny cysts. The gallbladder is distended and does not appear to be grossly inflamed. The spleen, adrenals, pancreas, and kidneys are unremarkable and unchanged. There is no hydronephrosis. Multiple metallic clips surround the abdominal aorta and inferior vena cava. There is an inferior vena cava filter present. There is no abdominal aortic aneurysm. There are multiple metallic clips in the right side of the abdomen as well. I see no adenopathy, free air or free fluid. No pelvic mass is seen. There is a left inguinal hernia containing fat. There is an umbilical hernia containing fat. Just above the umbilical hernia is a midline ventral hernia, which contains inflamed fat with streaky inflammatory changes of the fat within this hernia. There is no bowel in that hernia. The findings are strongly suggestive of incarcerated/strangulated fat-containing ventral hernia just above the umbilicus. There may be mild thickening of a small bowel loop just posterior to the supraumbilical midline hernia. IMPRESSION: Small left inguinal hernia contains fat. Small umbilical hernia contains fat. Just above the umbilical hernia is a ventral midline hernia containing inflamed fat strongly suggesting incarceration/strangulation of this ventral hernia. It does not contain bowel and it does not cause bowel obstruction. No other acute findings. There may be mild thickening of a small bowel loop just posterior to the supraumbilical midline hernia. Signed by Amando Cedeno MD 08/11/2016 07:47 P
[2016-08-11] MEDS ORDERED: POTA20TA PO (14:13)
[2016-08-11] MEDS ORDERED: SPIR1CAP INH (14:13)
[2016-08-11] MEDS ORDERED: ALBU83IN INH (14:13)
[2016-08-11] MEDS ORDERED: SPIR25TA2 PO (14:13)
[2016-08-11] MEDS ORDERED: CARV25TA PO (14:13)
[2016-08-11] MEDS ORDERED: COLCHICINE 0.6 MG TAB PO PRN (14:30)
[2016-08-11] MEDS ORDERED: ACETAMINOPHEN TAB 650MG DOSE (2X325MG) PO PRN (14:30)
[2016-08-11] MEDS ORDERED: MORPHINE 2 MG/ML 1ML SYRINGE IV PRN (14:30)
--- NOTE | 2016-08-11 16:19 | CR.PDOC ---
[facility] Consultation Consultation DATE OF CONSULTATION: Aug 11, 2016 at 11:17 PRIMARY CARE PHYSICIAN: SASHA Daly REFERRING PROVIDER: Miki Mcghee M.D. ATTENDING PHYSICIAN: Dr. Mcdonough REASON FOR CONSULTATION/CHIEF COMPLAINT: . Medical Optimization HISTORY OF PRESENT ILLNESS: 61 Y/O M with PMH of Asthma, Nonobstructive-CAD, Atrial fibrillation, bilateral pulmonary embolism status post IVC filter placement in 2014, DVT, morbid obesity , pulmonary hypertension, testicular cancer, and gout presented to the ER with a chief complaint of abdominal pain. The patient states that his abdominal pain started in the periumbilical area where he has a known hernia. He reports that he woke up 5 days ago with worsening pain and redness in the aforementioned area. He notes associated nausea with food intake. However, he does state that he has been able to pass his bowels and flatus without any problems. The patient did go see his primary care physician who recommended for him to go to the hospital for further evaluation and management. During this time, patient denies any fevers, chills, chest pain, shortness of breath, palpitations, or any vomiting or diarrhea. In the ER, a CT scan of the abdomen revealed a ventral midline hernia containing inflamed fat strongly suggesting incarceration/strangulation with no underlying bowel obstruction. The patient will be admitted under the surgical service, and the hospitalist service has been consulted for further medical optimization for surgical intervention tomorrow. ALLERGIES: Please see below. HOME MEDICATIONS: Please see below. PAST MEDICAL HISTORY: As noted in HPI. PAST SURGICAL HISTORY: Heart catheterization in 2008, right orchidectomy of the right testicle for testicular cancer, hernia repair, IVC filter placement in April 2014 FAMILY HISTORY: Noncontributory SOCIAL HISTORY: Denies tobacco, alcohol, illicit drug use. REVIEW OF SYSTEMS: 10 point review of systems negative unless otherwise specified in HPI. PHYSICAL EXAMINATION: VITAL SIGNS: Please see below. GENERAL APPEARANCE: . Awake, alert, oriented, in no acute distress. Morbidly obese HEENT: . Normocephalic, atraumatic RESPIRATORY: . Clear to auscultation bilaterally CARDIOVASCULAR: . Normal rate, normal rhythm ABDOMEN: . Soft, distended. Midline surgical scar noted. Patient does have an area of erythema and tenderness to deep palpation in the periumbilical area. No guarding, rebound tenderness, or rigidity noted EXTREMITIES: . No swelling or tenderness of the lower extremities bilaterally LABORATORY DATA: Please see below. ASSESSMENT/PLAN: Incarceration of Ventral Hernia CT Scan of the Abd noted WBC, Lactic Acid level wnl, Hemodynamically stable Agree with IVF Hydration, IV Abx therapy Surgery tentatively scheduled for tomorrow The patient classifies as a Class 2 risk according to the Revised Cardiac Risk Index, which denotes a 0.9% risk of major cardiac event. The implications of this risk stratification was discussed with the patient The patient is medically optimized for this intermediate risk procedure Hx of B/L Pulmonary Embolism s/p IVC Filter placement in 2014, DVT The patient is on Eliquis 5mg BID at home--his last dose was taken this morning We will hold his Eliquis at this time in preparation for surgery I did discuss possible bridging with Heparin gtt with our Pharmacy--however, given that we will likely resume his NOAC on Tuesday 616 am presuming his surgery goes well and hemostasis is achieved, there is no need for heparin bridging at this time. Hx of Atrial Fibrillation Rate controlled on coreg Will resume AC as noted above Hx of Diastolic CHF Patient appears Euvolemic at this time We will hold his diuretic doses for tomorrow in preparation for surgery Dyslipidemia Cont Statin Gout Cont Allopurinol COPD, stable Cont Albuterol, Symbicort, Spiriva as ordered DVT prophylaxis SCDs/TEDs (has also taken dose of Eliquis this AM) Should there be any further questions about medical management moving forward, please do not hesitate to contact Dr. Villagomez, who will be following the patient in consultation starting 08/12/16 @ 7am. Vital Signs/I&O Vital Signs Date Time Temp Pulse Resp B/P (MAP) Pulse Ox O2 Delivery O2 Flow Rate FiO2 08/11/16 14:18 83 16 133/68 (89) 94 Room Air 08/11/16 09:47 98.1 Laboratory Data Labs 24H Laboratory Tests 2 08/11/16 11:10: White Blood Count 5.8, Red Blood Count 4.64, Hemoglobin 14.5, Hematocrit 43.2, Mean Corpuscular Volume 93.0, Mean Corpuscular Hemoglobin 31.1, Mean Corpuscular Hemoglobin Concent 33.5, Red Cell Distribution Width 12.5, Platelet Count 165, Neutrophils (%) (Auto) 67.1H, Lymphocytes (%) (Auto) 21.9L, Monocytes (%) (Auto) 6.7H, Eosinophils (%) (Auto) 1.6, Basophils (%) (Auto) 1.0 , Neutrophils # (Auto) 3.9, Lymphocytes # (Auto) 1.4L, Monocytes # (Auto) 0.4, Eosinophils # (Auto) 0.1, Basophils # (Auto) 0.1, Large Unclassified Cells % 1.7 , Large Unclassified Cells # 0.1, Prothrombin Time 14.1, Prothromb Time International Ratio 1.08, Activated Partial Thromboplast Time 27.2, Anion Gap 5L , Glomerular Filtration Rate > 60.0, Lactic Acid Level 0.9, Calcium Level 9.2, Aspartate Amino Transf (AST/SGOT) 7L, Alanine Aminotransferase (ALT/SGPT) 17, Alkaline Phosphatase 75, Total Bilirubin 0.7, Direct Bilirubin 0.2, Total Protein 6.7, Albumin 3.2, Albumin/Globulin Ratio 0.91L, Lipase 125 CBC/BMP Laboratory Tests 08/11/16 11:10 Red Blood Count 4.64, Mean Corpuscular Volume 93.0, Mean Corpuscular Hemoglobin 31.1, Mean Corpuscular Hemoglobin Concent 33.5, Red Cell Distribution Width 12.5 , Neutrophils (%) (Auto) 67.1 H, Lymphocytes (%) (Auto) 21.9 L, Monocytes (%) ( Auto) 6.7 H, Eosinophils (%) (Auto) 1.6, Basophils (%) (Auto) 1.0, Neutrophils # (Auto) 3.9, Lymphocytes # (Auto) 1.4 L, Monocytes # (Auto) 0.4, Eosinophils # (Auto) 0.1, Basophils # (Auto) 0.1 Allergies Coded Allergies: No Known Drug Allergy (Verified Allergy, Unknown, 06/04/12) Home Medications Scheduled Allopurinol (Allopurinol) 100 Mg Tab, 200 MG PO DAILY, (Reported) Apixaban Base (Eliquis) 5 Mg Tab, 5 MG PO BID, (Reported) Atorvastatin Calcium (Atorvastatin Calcium) 40 Mg Tab, 40 MG PO DAILY, (Reported ) Budesonide/Formoterol (Symbicort 80-4.5 Mcg/Act) 60 Puff/Inhaler Aers, 2 PUFF INH BID, (Reported) Carvedilol (Carvedilol) 25 Mg Tab, 12.5 MG PO BID, (Reported) Cholecalciferol (Vitamin D3) 2,000 Unit Tab, 2,000 UNIT PO DAILY, (Reported) Furosemide (Furosemide) 80 Mg Tab, 80 MG PO BID, (Reported) Gabapentin (Gabapentin) 100 Mg Cap, 400 MG PO QHS, (Reported) Magnesium Oxide (Magnesium Oxide 400) 400 Mg Tab, 400 MG PO BID, (Reported) Potassium Chloride (Klor-Con M20) 20 Meq Tabcr, 60 MEQ PO BID, (Reported) Spironolactone (Spironolactone) 25 Mg Tab, 25 MG PO BID, (Reported) Tiotropium Logan Monohydrate (Spiriva Handihaler) 18 Mcg Cap, 18 MCG INH DAILY , (Reported) Scheduled PRN Albuterol Sulfate (Ventolin Hfa) 200 Puff/8 Gm Aers, 2 PUFF INH QID PRN for SHORTNESS OF BREATH, (Reported) Albuterol Sulfate (Albuterol Sulfate) 2.5 Mg/3 Ml Nebu, 2.5 MG INH Q6H PRN for SHORTNESS OF BREATH, (Reported) Colchicine (Colchicine) 0.6 Mg Tab, 1.2 MG PO ASDIRECTED PRN for FLARE UP, ( Reported) TAKE 2 TABLETS AT FIRST SIGN OF GOUT FLARE UP- THEN 1 TABLET ONE HOUR LATER MIKI MCGHEE MD Aug 11, 2016 16:19
[2016-08-11 17:00] VITALS: BP 140/75
[2016-08-11] MEDS: LR 1,000 ML IV SCH ×2 (17:30→21:55)
[2016-08-11] MEDS: PIPERACILLIN/TAZOBACTAM SOD 3.375 GM in D5W MINI-BAG PLUS 50 ML IV SCH ×2 (17:31→21:54)
[2016-08-11] MEDS: PANTOPRAZOLE 40MG TAB (PROTONIX) PO SCH (18:04)
[2016-08-11] MEDS: SYMBICORT 80/4.5MCG INHALER 6GM INH SCH (20:00)
[2016-08-11] MEDS: FUROSEMIDE 80 MG TAB PO SCH (21:55)
[2016-08-11] MEDS: MAGNESIUM OXIDE 400 MG TAB (MAG-OX) PO SCH (21:55)
[2016-08-11] MEDS: SENOKOT S TAB PO SCH (21:55)
[2016-08-11] MEDS: GABAPENTIN 400 MG CAP PO SCH (21:55)
[2016-08-11] MEDS: SPIRONOLACTONE 25 MG TAB PO SCH (21:55)
[2016-08-11] MEDS: CARVedilol 12.5 MG TAB PO SCH (21:56)
[2016-08-11 22:00] VITALS: BP 135/77
[2016-08-12] MEDS: PIPERACILLIN/TAZOBACTAM SOD 3.375 GM in D5W MINI-BAG PLUS 50 ML IV SCH ×4 (03:36→22:17)
[2016-08-12] MEDS: LR 1,000 ML IV SCH ×3 (05:57→22:18)
[2016-08-12 06:00] VITALS: BP 134/93
[2016-08-12] MEDS: SYMBICORT 80/4.5MCG INHALER 6GM INH SCH ×2 (07:15→20:27)
[2016-08-12] MEDS: TIOTROPIUM INHALER/CAPSULE (SPIRIVA) INH SCH (07:15)
[2016-08-12 07:25] LABS: MEAN CORPUSCULAR HEMOGLOBIN 31.3 pg (27.0-33.0); MEAN CORPUSCULAR HGB CONC 33.4 g/dl (32.0-36.5); MEAN CORPUSCULAR VOLUME 93.9 fl (80.0-96.0); RED CELL DISTRIBUTION WIDTH 12.3 % (11.5-14.5); WHITE BLOOD COUNT 7.8 K/mm3 (4.0-10.0)
[2016-08-12] MEDS: HEPARIN SOD (PORCINE) 5000 UNITS/ML VIAL SQ SCH ×3 (07:52→22:17)
[2016-08-12 07:55] LABS: ALBUMIN/GLOBULIN RATIO 0.97 (1.00-1.93); ALKALINE PHOSPHATASE 66 U/L (45-117); ALT/SGPT 17 U/L (12-78); ANION GAP 4 MEQ/L (8-16); AST/SGOT 11 U/L (15-37); BILIRUBIN,TOTAL 0.4 MG/DL (0.2-1.0); BLOOD UREA NITROGEN 14 MG/DL (7-18); CALCIUM LEVEL 8.6 MG/DL (8.8-10.2); CARBON DIOXIDE LEVEL 38 MEQ/L (21-32); CHLORIDE LEVEL 100 MEQ/L (98-107); CREATININE FOR GFR 1.17 MG/DL (0.70-1.30); GLOMERULAR FILTRATION RATE > 60.0 (>49); GLUCOSE, FASTING 115 MG/DL (80-110); MAGNESIUM LEVEL 1.8 MG/DL (1.8-2.4); SODIUM LEVEL 142 MEQ/L (136-145); TOTAL PROTEIN 6.1 GM/DL (6.4-8.2)
[2016-08-12] MEDS: SENOKOT S TAB PO SCH ×2 (09:00→22:17)
[2016-08-12] MEDS: MORPHINE 4 MG/ML 1ML SYRINGE IV PRN ×2 (09:13→14:16)
[2016-08-12] MEDS: ALLOPURINOL 100 MG TAB PO SCH (09:14)
[2016-08-12] MEDS: ATORVASTATIN 20 MG TAB PO SCH (09:14)
[2016-08-12] MEDS: PANTOPRAZOLE 40MG TAB (PROTONIX) PO SCH (09:14)
[2016-08-12] MEDS: MAGNESIUM OXIDE 400 MG TAB (MAG-OX) PO SCH ×2 (09:14→22:17)
[2016-08-12] MEDS: CARVedilol 12.5 MG TAB PO SCH ×2 (09:15→22:18)
[2016-08-12] MEDS ORDERED: BUPIVACAINE/EPIN 0.25% 30 ML VIAL As Ordered ONE (14:20)
--- NOTE | 2016-08-12 15:04 | HPE ---
DATE OF ADMISSION: 08/11/2016 REASON FOR CONSULTATION: Abdominal pain. HISTORY OF PRESENT ILLNESS: The patient is a 61-year-old male who has had a known umbilical hernia for many years status post exploratory laparotomy with lymph node dissection for testicular cancer back in the late 1970s. He has not had any problems with his however, starting this past , he developed some sharp pains and a bulge just above this on the right side of his abdomen, just off the midline. This area is very hard, painful with any cough and sneezing or movement. It has been getting progressively worse for the past 4 days. He has had some nausea and vomiting with it. Therefore, he came into emergency room for evaluation, In the emergency room (ER), he vitals are stable. Labs are normal. However a CT scan does show that he has a ventral incisional hernia just superior to the umbilical hernia that does have surrounding fat stranding. Therefore I was called to evaluate. Currently the patient does have some redness to the abdominal wall. He said it has been there for about 3-4 days. He has been unable to reduce this area. It has been getting larger. No current nausea or vomiting but he has had a difficult time keeping food down over the last couple of days. No change in bowel movements. He still passing gas. Denies any fevers or chills. He has had this major abdominal surgery for his testicular cancer with lymph node dissection in the late 70s. No other abdominal surgeries that he is aware of other than a left inguinal hernia repair done about a year ago. ALLERGIES: None. HOME MEDICATIONS: Please see medical record. PAST MEDICAL HISTORY: Bilateral pulmonary emboli (PE) in 2014. IVC filter placement. Hyperlipidemia. Pulmonary hypertension. Atrial fibrillation. Obstructive sleep apnea. Asthma. Coronary artery disease. Cor pulmonale. Testicular cancer. Alcohol abuse. PAST SURGICAL HISTORY: Heart catheterization 2008. Right orchiectomy for testicular cancer along with exploratory laparotomy for lymph node dissection. Left inguinal hernia repair. IVC filter placement. SOCIAL HISTORY: Denies any current drug, alcohol, tobacco abuse. Does drink alcohol socially. REVIEW OF SYSTEMS: Pertinent positive and negatives stated in the history of present illness (HPI). PHYSICAL EXAMINATION: GENERAL: Alert and oriented times three. No acute distress. VITALS: Temperature 98.1, pulse 69, respirations 18, blood pressure 133/68, pulse ox 94% room air. HEENT: Pupils equal round react to light accommodation. HEART: S1, S2. Regular rate and rhythm. LUNGS: Clear to auscultation bilaterally. ABDOMEN: Soft, tender to palpation over the midline just superior to the umbilicus. There is a very hard area with surrounding erythema. There is also a reducible umbilical hernia and a reducible incisional hernia. Up at the top epigastric area as well from his prior exploratory surgery. No signs of peritonitis. The rest the abdomen is soft and nontender. EXTREMITIES: No clubbing, cyanosis or edema. LABS: White count 5.8, hemoglobin 14.5, platelets 165, INR 1.08, potassium 3.6, creatinine 1.10. IMAGING STUDIES: CT abdomen and pelvis shows a small left inguinal hernia containing fat. Small umbilical hernia containing fat. Incisional hernia superior to the umbilical hernia that has inflamed fat strongly suggesting incarceration versus strangulation. No signs of any bowel obstruction but there is thickening of small bowel loop just posterior to this and incarcerated hernia. ASSESSMENT/PLAN: The patient is a 61-year-old male with an incarcerated and possibly even strangulated ventral incisional hernia as well as reducible ventral incisional hernia and reducible umbilical hernia. Recommendation is to proceed with laparoscopic possible open repair of these with mesh placement. Risks and benefits of procedure not limited but including bleeding, infection, hernia recurrence, hernia formation, damage to surrounding structure need for further surgery were discussed in detail with the patient. Due to patient being on Eliquis we will keep him in the hospital overnight and start him on a heparin drip. I have asked the hospitalist team to see him to help to optimize him medically for surgery. We will plan for surgery tomorrow afternoon once he has been off the Eliquis for about 36 hours.
[2016-08-12 15:23] VITALS: BP 113/64
[2016-08-12] MEDS ORDERED: ZOSYN 3.375 GM VIAL (J2543) As Ordered ONE (16:01)
[2016-08-12] MEDS ORDERED: fentaNYL 250 MCG/5 ML INJECTION (J3010) As Ordered ONE (16:04)
[2016-08-12] MEDS ORDERED: ROCURONIUM BROMIDE 50 MG/5 ML VIAL As Ordered ONE ×2 (16:04→17:32)
[2016-08-12] MEDS ORDERED: PROPOFOL 200 MG/20 ML VIAL As Ordered ONE (16:04)
[2016-08-12] MEDS ORDERED: LIDOCAINE 2% INJ 100 MG/5 ML SDV (FOR ANES.) As Ordered ONE (16:04)
[2016-08-12] MEDS ORDERED: MIDAZOLAM INJ 2 MG/2 ML VIAL (J2250) As Ordered ONE (16:04)
[2016-08-12] MEDS ORDERED: ePHEDrine SULFATE 25 MG/5 ML(5MG/ML) SYRINGE As Ordered ONE ×2 (16:48→17:11)
--- NOTE | 2016-08-12 17:05 | ECGEPIP ---
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
[2016-08-12] MEDS ORDERED: PHENYLephrine HCL 500 MCG/5 ML (100MCG/ML) SYRINGE (J2370) As Ordered ONE (17:11)
[2016-08-12] MEDS ORDERED: GLYCOPYRROLATE INJ 0.2 MG/ML 2 ML VIAL As Ordered ONE (17:11)
[2016-08-12] MEDS ORDERED: NEOSTIGMINE 1MG/ML 5 ML SYRINGE (J2710) As Ordered ONE (17:12)
[2016-08-12] MEDS ORDERED: ONDANSETRON 4MG/2ML VIAL (J2405) As Ordered ONE ×2 (17:17→20:17)
[2016-08-12] MEDS ORDERED: dexameTHASONE 4 MG/ML 1ML VIAL (J1100) As Ordered ONE (17:17)
[2016-08-12] MEDS ORDERED: KETOROLAC 60 MG/2 ML VIAL (J1885) As Ordered ONE (18:40)
[2016-08-12] MEDS ORDERED: fentaNYL 100 MCG/2 ML INJECTION (J3010) As Ordered ONE (20:17)
[2016-08-12] MEDS: fentaNYL 100 MCG/2 ML INJECTION (J3010) IV PRN ×4 (20:20→20:41)
[2016-08-12] MEDS ORDERED: ONDANSETRON 4MG/2ML VIAL (J2405) IV PRN (20:45)
[2016-08-12] MEDS ORDERED: LR 1,000 ML IV SCH (20:45)
[2016-08-12] MEDS ORDERED: NORCO, ANEXSIA 5/325MG TABLET (HYDROcodone/ACETAMINOPHEN) As Ordered ONE (21:01)
[2016-08-12] MEDS: NORCO, ANEXSIA 5/325MG TABLET (HYDROcodone/ACETAMINOPHEN) PO PRN (21:02)
[2016-08-12 21:45] VITALS: BP 131/77
[2016-08-12 22:15] VITALS: BP 123/75
[2016-08-12] MEDS: GABAPENTIN 400 MG CAP PO SCH (22:17)
[2016-08-12 23:15] VITALS: BP 125/71
[2016-08-12] MEDS: KETOROLAC 30 MG/ML VIAL (J1885) IV PRN (23:43)
[2016-08-13 00:15] VITALS: BP 124/72
[2016-08-13 02:00] VITALS: BP 123/74
[2016-08-13] MEDS: PIPERACILLIN/TAZOBACTAM SOD 3.375 GM in D5W MINI-BAG PLUS 50 ML IV SCH (04:02)
[2016-08-13] MEDS: LR 1,000 ML IV SCH (05:59)
[2016-08-13] MEDS: HEPARIN SOD (PORCINE) 5000 UNITS/ML VIAL SQ SCH (05:59)
[2016-08-13 06:00] VITALS: BP 135/79
[2016-08-13] MEDS: NORCO, ANEXSIA 5/325MG TABLET (HYDROcodone/ACETAMINOPHEN) PO PRN ×2 (06:00→14:59)
[2016-08-13 07:22] LABS: ALBUMIN 3.1 GM/DL (3.2-5.2); ALKALINE PHOSPHATASE 76 U/L (45-117); ALT/SGPT 21 U/L (12-78); ANION GAP 3 MEQ/L (8-16); AST/SGOT 13 U/L (15-37); BILIRUBIN,TOTAL 0.5 MG/DL (0.2-1.0); BLOOD UREA NITROGEN 17 MG/DL (7-18); CALCIUM LEVEL 8.5 MG/DL (8.8-10.2); CARBON DIOXIDE LEVEL 38 MEQ/L (21-32); CHLORIDE LEVEL 96 MEQ/L (98-107); CREATININE FOR GFR 1.24 MG/DL (0.70-1.30); GLOMERULAR FILTRATION RATE > 60.0 (>49); GLUCOSE, FASTING 119 MG/DL (80-110); MAGNESIUM LEVEL 2.2 MG/DL (1.8-2.4); POTASSIUM SERUM 4.4 MEQ/L (3.5-5.1); SODIUM LEVEL 137 MEQ/L (136-145); TOTAL PROTEIN 6.2 GM/DL (6.4-8.2)
[2016-08-13 07:26] LABS: MEAN CORPUSCULAR HEMOGLOBIN 31.4 pg (27.0-33.0); MEAN CORPUSCULAR HGB CONC 33.1 g/dl (32.0-36.5); RED CELL DISTRIBUTION WIDTH 12.4 % (11.5-14.5); WHITE BLOOD COUNT 6.9 K/mm3 (4.0-10.0)
[2016-08-13] MEDS ORDERED: NORCOTAB PO (07:53)
[2016-08-13] MEDS ORDERED: SENN1TAB2 PO (07:53)
[2016-08-13] MEDS: SYMBICORT 80/4.5MCG INHALER 6GM INH SCH ×2 (07:53→20:33)
[2016-08-13] MEDS: TIOTROPIUM INHALER/CAPSULE (SPIRIVA) INH SCH (07:53)
[2016-08-13] MEDS: APIXABAN 5 MG TAB (ELIQUIS) PO SCH ×2 (08:17→20:43)
[2016-08-13] MEDS: MAGNESIUM OXIDE 400 MG TAB (MAG-OX) PO SCH ×2 (08:19→20:43)
[2016-08-13] MEDS: CARVedilol 12.5 MG TAB PO SCH ×2 (08:19→20:43)
[2016-08-13] MEDS: SENOKOT S TAB PO SCH ×2 (08:19→20:43)
[2016-08-13] MEDS: KETOROLAC 30 MG/ML VIAL (J1885) IV PRN (08:20)
[2016-08-13] MEDS: ATORVASTATIN 20 MG TAB PO SCH (08:20)
[2016-08-13] MEDS: PANTOPRAZOLE 40MG TAB (PROTONIX) PO SCH (08:20)
[2016-08-13] MEDS: ALLOPURINOL 100 MG TAB PO SCH (08:20)
[2016-08-13] MEDS: FUROSEMIDE 80 MG TAB PO SCH ×2 (09:32→20:43)
[2016-08-13] MEDS: SPIRONOLACTONE 25 MG TAB PO SCH ×2 (09:32→20:43)
[2016-08-13 14:00] VITALS: BP 124/56
--- NOTE | 2016-08-13 14:49 | RO ---
DATE OF PROCEDURE: 08/11/2016 PREPROCEDURE DIAGNOSIS: Incarcerated incisional hernia. POSTPROCEDURE DIAGNOSIS: Incisional hernias times three and incarcerated incisional hernia times one. PROCEDURE: Laparoscopic incarcerated incisional hernia repair and repair of three other incisional hernias with two separate 12 cm round Parietex composite meshes. SURGEON: Dr. Mcdonough BUS GREASER: None. ANESTHESIA: General. ESTIMATED BLOOD LOSS: 100 COMPLICATIONS: None. INDICATIONS FOR PROCEDURE: The patient 61-year-old male who presents after exploratory surgery with lymph node dissection 30 years ago with excruciating pain in his abdomen. He is found to have an incarcerated, possibly even strangulated incisional hernia. Recommendation was to proceed with laparoscopic, possible open repair. Risks and the benefits of the procedure, not limited but including bleeding, infection, hernia recurrence, hernia formation, damage to surrounding structures, need for further surgery were discussed in detail with the patient. Informed was obtained. Procedure was planned. DESCRIPTION OF PROCEDURE: The patient was brought back to operating room #3. After sufficient sedation, the abdomen was sterilely prepped and draped. Next, a time-out was done to confirm proper patient and proper procedure. Following that, a 5 mm incision was made in the left upper quadrant. A Veress needle was inserted, and the abdomen was insufflated to 15 mmHg. Next, Veress needle was removed. A 5 mm OptiView port was used to gain access to the abdomen. The abdomen was entered and another 5 mm port was placed in the left lower quadrant. There were extensive adhesions throughout the entire abdomen from top to bottom. There was only a small window along the left lateral wall. Starting up at the top left, using the Enseal and blunt dissection with some sharp dissection, took about 2-1/2 hours of lysis of adhesions to free up the abdominal wall. Once this was completed, there were two defects in the upper midline over the incision, one measuring about 5 mm in sizer and the other about 1-1/2 cm in size and then there was the incarcerated hernia just above the umbilicus in the midline that was about a 1 cm defect and then another 1-1/2 cm defect just inferior to that at the umbilicus with another reducible incisional hernia. Once all these hernias had been reduced and the adhesions had been taken down, a 12 cm round Parietex mesh and #0 Vicryl was placed in all four corners. It was placed inside the abdomen. Maximus-Lev needle was used to bring out the transfascial sutures through the abdominal wall to hold it in place. Two separate meshes were used, one for the top two hernias because they were less than a centimeter away from each other and same thing with the inferior two. The same process was used with both meshes. The Maximus-Lev needle was used to bring up the transfascial sutures through the abdominal wall, which were tied in place. Two Secure Strap tackers were then used per mesh to secure the perimeter of the mesh in place. Once this was completed with a first mesh, the same process was done with the second mesh. The hernia sac was then brought out through the port site using a Stephanie clamp. Once this was completed, the abdomen was examined one last time to confirm hemostasis. The abdomen was then desufflated. Skin incisions were closed with #4-0 Vicryl subcuticular sutures at the port sites. Steri-Strips were placed over all ten incisions. 10 mL of local was injected between the ten incision lines as well. The abdomen was then cleaned and dried. Steri-Strips, 4x4 and tape were applied, thus ending procedure.
[2016-08-13 20:31] VITALS: O2SAT 97
[2016-08-13] MEDS: GABAPENTIN 400 MG CAP PO SCH (20:43)
[2016-08-13 22:00] VITALS: BP 165/91
[2016-08-14] MEDS: NORCO, ANEXSIA 5/325MG TABLET (HYDROcodone/ACETAMINOPHEN) PO PRN ×3 (01:48→16:07)
[2016-08-14 06:00] VITALS: BP 111/68
[2016-08-14 06:06] LABS: MEAN CORPUSCULAR HEMOGLOBIN 30.9 pg (27.0-33.0); MEAN CORPUSCULAR HGB CONC 32.6 g/dl (32.0-36.5); MEAN CORPUSCULAR VOLUME 94.8 fl (80.0-96.0); RED CELL DISTRIBUTION WIDTH 12.4 % (11.5-14.5); WHITE BLOOD COUNT 5.6 K/mm3 (4.0-10.0)
[2016-08-14 06:36] LABS: ALBUMIN/GLOBULIN RATIO 0.97 (1.00-1.93); ALKALINE PHOSPHATASE 70 U/L (45-117); ALT/SGPT 19 U/L (12-78); ANION GAP 5 MEQ/L (8-16); AST/SGOT 11 U/L (15-37); BILIRUBIN,TOTAL 0.3 MG/DL (0.2-1.0); BLOOD UREA NITROGEN 20 MG/DL (7-18); CARBON DIOXIDE LEVEL 38 MEQ/L (21-32); CHLORIDE LEVEL 96 MEQ/L (98-107); CREATININE FOR GFR 1.13 MG/DL (0.70-1.30); GLOMERULAR FILTRATION RATE > 60.0 (>49); GLUCOSE, FASTING 119 MG/DL (80-110); MAGNESIUM LEVEL 1.9 MG/DL (1.8-2.4); POTASSIUM SERUM 3.9 MEQ/L (3.5-5.1); SODIUM LEVEL 139 MEQ/L (136-145); TOTAL PROTEIN 6.1 GM/DL (6.4-8.2)
[2016-08-14] MEDS: TIOTROPIUM INHALER/CAPSULE (SPIRIVA) INH SCH (07:59)
[2016-08-14] MEDS: SYMBICORT 80/4.5MCG INHALER 6GM INH SCH ×2 (07:59→20:37)
[2016-08-14 08:04] VITALS: O2SAT 84
[2016-08-14 08:05] VITALS: O2SAT 92
--- NOTE | 2016-08-14 08:59 | IPNPDOC ---
Subjective General Date/Time Seen The patient was seen on 08/14/16 at 08:56. Subject Chief Complaint/History The patient is a 61-year-old male admitted with a reason for visit of Incarerated Incisional Hernia. Current Medications Current Medications Current Medications Acetaminophen (Tylenol Tab) 650 mg Q4HP PRN PO MILD PAIN or TEMP > 101; Start 08/11/16 at 14:30; Stop 09/11/16 at 14:29 Acetaminophen/ Hydrocodone Bitart ([place], Anexsia 5/325) 2 tab Q6HP PRN PO SEVERE PAIN (PS 8-10) Last administered on 08/14/16 01:48; Start 08/11/16 at 14 :30; Stop 08/19/16 at 14:29 Albuterol Sulfate (Proventil Neb) 2.5 mg Q6H PRN INH SHORTNESS OF BREATH; Start 08/11/16 at 12:00; Stop 09/11/16 at 11:59 Albuterol Sulfate (Proventil, Ventolin Hfa) 2 puff QID PRN INH SHORTNESS OF BREATH; Start 08/11/16 at 13:00; Stop 09/11/16 at 12:59 Allopurinol (Zyloprim) 200 mg DAILY PO Last administered on 08/13/16 08:20; Start 08/12/16 at 09:00; Stop 09/11/16 at 08:59 Apixaban (Eliquis) 5 mg BID PO Last administered on 08/13/16 20:43; Start at 09:00; Stop 08/20/16 at 08:59 Atorvastatin Calcium (Lipitor) 40 mg DAILY PO Last administered on 08/13/16 08 :20; Start 08/12/16 at 09:00; Stop 09/11/16 at 08:59 Budesonide/ Formoterol Fumarate (Symbicort 80/ 4.5mcg) 2 puff BID INH Last administered on 08/14/16 07:59; Start 08/11/16 at 21:00; Stop 09/11/16 at 20:59 Carvedilol (COReg) 12.5 mg BID PO Last administered on 08/13/16 20:43; Start 08/11/16 at 21:00; Stop 09/11/16 at 20:59 Colchicine (Colcrys) 1.2 mg ASDIRECTED PRN PO FLARE UP; Start 08/11/16 at 14:30 ; Stop 08/11/16 at 14:59; Status DC Fentanyl Citrate (Sublimaze) 25 mcg Q5MP PRN IV MODERATE PAIN (PS 4-7) Last administered on 08/12/16 20:41; Start 08/12/16 at 20:45; Stop 08/12/16 at 21:45 ; Status DC Furosemide (Lasix) 80 mg BID PO Last administered on 08/13/16 20:43; Start at 21:00; Stop 09/11/16 at 20:59; Status Future hold Gabapentin (Neurontin) 400 mg QHS PO Last administered on 08/13/16 20:43; Start 08/11/16 at 21:00; Stop 09/11/16 at 20:59 Heparin Sodium (Porcine) (Heparin) 5,000 units Q8H SQ Last administered on 08/13 05:59; Start 08/12/16 at 06:00; Stop 08/13/16 at 07:51; Status DC Home Med (Med Rec Complete!) ASDIRECTED XX ; Start 08/11/16 at 14:30; Stop at 14:30; Status DC Ketorolac Tromethamine (ToRADol) 30 mg Q6HP PRN IV MILD/MODERATE PAIN (PS 1-7) Last administered on 08/13/16 08:20; Start 08/11/16 at 15:00; Stop 08/16/16 at 14:59 Lactated Ringer's 1,000 ml @ 100 mls/hr Q10H IV Last administered on 20:45; Start 08/12/16 at 20:45; Stop 08/12/16 at 21:45; Status DC Lactated Ringer's 1,000 ml @ 125 mls/hr Q8H IV Last administered on 08/13/16 05:59; Start 08/11/16 at 14:23; Stop 08/13/16 at 07:51; Status DC Magnesium Oxide (Mag-Ox) 400 mg BID PO Last administered on 08/13/16 20:43; Start 08/11/16 at 21:00; Stop 09/11/16 at 20:59 Morphine Sulfate (Morphine Sulfate Inj) 2 mg Q2HP PRN IV SEVERE PAIN (PS 8-10) ; Start 08/11/16 at 14:30; Stop 08/13/16 at 07:51; Status DC Morphine Sulfate (Morphine Sulfate Inj) 4 mg Q15M PRN IV MODERATE/SEVERE PAIN ( PS 5-10) Last administered on 08/12/16 14:16; Start 08/11/16 at 10:45; Stop at 14:16; Status DC Ondansetron HCl (ZOFRAN INJection) 4 mg Q4HP PRN IV NAUSEA OR VOMITING Last administered on 08/12/16 20:20; Start 08/12/16 at 20:45; Stop 08/12/16 at 21:45 ; Status DC Ondansetron HCl (ZOFRAN INJection) 4 mg Q6HP PRN IV NAUSEA OR VOMITING; Start 08/11/16 at 14:30; Stop 09/11/16 at 14:29 Pantoprazole Sodium (Protonix) 40 mg DAILY PO Last administered on 08/13/16 08 :20; Start 08/11/16 at 09:00; Stop 09/11/16 at 08:59 Piperacillin Sod/ Tazobactam Sod 3.375 gm/Dextrose 50 ml @ 50 mls/hr Q6H IV Last administered on 08/13/16 04:02; Start 08/11/16 at 16:00; Stop 08/13/16 at 07:51; Status DC Senna/Docusate Sodium (Senokot S) 1 tab BID PO Last administered on 08/13/16 20:43; Start 08/11/16 at 21:00; Stop 09/11/16 at 20:59 Sodium Chloride 1,000 ml @ 100 mls/hr Q10H IV Last administered on 08/11/16 11:43; Start 08/11/16 at 10:33; Stop 08/11/16 at 16:08; Status DC Spironolactone (Aldactone) 25 mg BID PO Last administered on 08/13/16 20:43; Start 08/11/16 at 21:00; Stop 09/11/16 at 20:59; Status Future hold Tiotropium [place] (Spiriva Handihaler) 1 inhalation DAILY INH Last administered on 6/17/17at 07:59; Start 08/12/16 at 09:00; Stop 09/11/16 at 08:59 Allergies Coded Allergies: No Known Drug Allergy (Verified Allergy, Unknown, 06/04/12) Objective Physical Examination Examination GENERAL APPEARANCE:Patient seen, laying in bed, awake, alert, and oriented. mildly uncomfortable, in no acute distress. SKIN: Warm and moist. HEENT: Normocephalic, atraumatic. [place] palpebral conjunctiva, anicteric sclerae. Lips and mucosa appear dry NECK: Supple, no thyromegaly. No obvious jugular venous distention. LUNGS: Clear to auscultation bilaterally. mild wheezing appreciated. HEART: No chest wall abnormalities. Regular rate and rhythm with no murmurs appreciated. ABDOMEN: Abdomen is tensely distended, quiet, soft, tympanitic. port sites and suture exit sites dressings dry. tender around midline hernia repair site.. EXTREMITIES: Extremities have no deformities. No edema identified. Vital Signs Vital Signs Date Time Temp Pulse Resp B/P (MAP) Pulse Ox O2 Delivery O2 Flow Rate FiO2 08/14/16 08:05 92 Nasal Cannula 2.0 08/14/16 06:00 97.7 83 18 111/68 (82) I&Os I&O- Last 24 Hours up to 6 AM 08/14/16 05:59 Intake Total 3190 ml Output Total 1850 ml Balance 1340 ml Laboratory Data Labs 24H Laboratory Tests 2 08/14/16 05:53: Anion Gap 5L, Glomerular Filtration Rate > 60.0, Blood Urea Nitrogen 20H, Creatinine 1.13, Sodium Level 139, Potassium Level 3.9, Chloride Level 96L, Carbon Dioxide Level 38H, Calcium Level 8.0L, Aspartate Amino Transf (AST/SGOT) 11L, Alanine Aminotransferase (ALT/SGPT) 19, Alkaline Phosphatase 70, Total Bilirubin 0.3, Total Protein 6.1L, Albumin 3.0L, Magnesium Level 1.9, Albumin/ Globulin Ratio 0.97L CBC/BMP Laboratory Tests 08/14/16 05:53 Red Blood Count 3.98 L, Mean Corpuscular Volume 94.8, Mean Corpuscular Hemoglobin 30.9, Mean Corpuscular Hemoglobin Concent 32.6, Red Cell Distribution Width 12.4, Calcium Level 8.0 L, Aspartate Amino Transf (AST/SGOT) 11 L, Alanine Aminotransferase (ALT/SGPT) 19, Alkaline Phosphatase 70, Total Bilirubin 0.3, Total Protein 6.1 L, Albumin 3.0 L Impression POD2 Laparoscopic repair of incarcerated incisional hernia morbid obesity COPD possibly ileus not ready for discharge due to abdominal distention. will give some laxatives today. encouraged patient to ambulate to hallways with O2, do breathing exercises. Plan / VTE VTE Prophylaxis Ordered?: Yes DARSHAN RIBEIRO MD Aug 14, 2016 08:59
[2016-08-14] MEDS: ONDANSETRON 4MG/2ML VIAL (J2405) IV PRN ×2 (09:03→18:37)
[2016-08-14] MEDS: ALLOPURINOL 100 MG TAB PO SCH (10:00)
[2016-08-14] MEDS: SENOKOT S TAB PO SCH ×2 (10:01→21:03)
[2016-08-14] MEDS: FUROSEMIDE 80 MG TAB PO SCH ×2 (10:01→21:04)
[2016-08-14] MEDS: SPIRONOLACTONE 25 MG TAB PO SCH ×2 (10:01→21:03)
[2016-08-14] MEDS: CARVedilol 12.5 MG TAB PO SCH ×2 (10:01→21:04)
[2016-08-14] MEDS: PANTOPRAZOLE 40MG TAB (PROTONIX) PO SCH (10:01)
[2016-08-14] MEDS: ATORVASTATIN 20 MG TAB PO SCH (10:01)
[2016-08-14] MEDS: MAGNESIUM OXIDE 400 MG TAB (MAG-OX) PO SCH ×2 (10:02→21:04)
[2016-08-14] MEDS: APIXABAN 5 MG TAB (ELIQUIS) PO SCH ×2 (10:02→21:04)
[2016-08-14] MEDS: MOM 30ML SUSPENSION UDC PO SCH ×2 (10:03→21:03)
[2016-08-14 14:00] VITALS: BP 163/86
[2016-08-14] MEDS: KETOROLAC 30 MG/ML VIAL (J1885) IV PRN (18:38)
[2016-08-14 20:35] VITALS: O2SAT 98
[2016-08-14] MEDS: GABAPENTIN 400 MG CAP PO SCH (21:04)
[2016-08-14 22:00] VITALS: BP 134/69
[2016-08-15] MEDS: KETOROLAC 30 MG/ML VIAL (J1885) IV PRN (05:13)
[2016-08-15 06:00] VITALS: BP 112/66
[2016-08-15 06:29] LABS: MEAN CORPUSCULAR HGB CONC 32.4 g/dl (32.0-36.5); MEAN CORPUSCULAR VOLUME 95.7 fl (80.0-96.0); RED CELL DISTRIBUTION WIDTH 12.3 % (11.5-14.5); WHITE BLOOD COUNT 6.8 K/mm3 (4.0-10.0)
[2016-08-15 06:54] LABS: ALBUMIN/GLOBULIN RATIO 0.97 (1.00-1.93); ALKALINE PHOSPHATASE 65 U/L (45-117); ALT/SGPT 18 U/L (12-78); ANION GAP 1 MEQ/L (8-16); AST/SGOT 10 U/L (15-37); BILIRUBIN,TOTAL 0.4 MG/DL (0.2-1.0); BLOOD UREA NITROGEN 16 MG/DL (7-18); CALCIUM LEVEL 8.1 MG/DL (8.8-10.2); CARBON DIOXIDE LEVEL 43 MEQ/L (21-32); CHLORIDE LEVEL 94 MEQ/L (98-107); CREATININE FOR GFR 1.05 MG/DL (0.70-1.30); GLOMERULAR FILTRATION RATE > 60.0 (>49); GLUCOSE, FASTING 104 MG/DL (80-110); MAGNESIUM LEVEL 2.3 MG/DL (1.8-2.4); POTASSIUM SERUM 3.5 MEQ/L (3.5-5.1); SODIUM LEVEL 138 MEQ/L (136-145); TOTAL PROTEIN 6.1 GM/DL (6.4-8.2)
[2016-08-15] MEDS: ALBUTEROL SULFATE 2.5 MG/0.5 ML INH NEB SOLN NEB SCH ×3 (08:00→20:00)
[2016-08-15] MEDS: SYMBICORT 80/4.5MCG INHALER 6GM INH SCH ×2 (08:00→20:35)
[2016-08-15] MEDS: TIOTROPIUM INHALER/CAPSULE (SPIRIVA) INH SCH (08:00)
[2016-08-15] MEDS: PANTOPRAZOLE 40MG TAB (PROTONIX) PO SCH (08:37)
[2016-08-15] MEDS: ALLOPURINOL 100 MG TAB PO SCH (08:37)
[2016-08-15] MEDS: CARVedilol 12.5 MG TAB PO SCH ×2 (08:38→21:02)
[2016-08-15] MEDS: APIXABAN 5 MG TAB (ELIQUIS) PO SCH ×2 (08:38→21:03)
[2016-08-15] MEDS: ATORVASTATIN 20 MG TAB PO SCH (08:38)
[2016-08-15] MEDS: SENOKOT S TAB PO SCH ×2 (08:38→21:02)
[2016-08-15] MEDS: MOM 30ML SUSPENSION UDC PO SCH ×2 (08:39→21:00)
[2016-08-15] MEDS: MAGNESIUM OXIDE 400 MG TAB (MAG-OX) PO SCH ×2 (08:39→21:03)
[2016-08-15] MEDS: FUROSEMIDE 80 MG TAB PO SCH ×2 (08:39→21:02)
[2016-08-15] MEDS: SPIRONOLACTONE 25 MG TAB PO SCH ×2 (08:39→21:02)
--- NOTE | 2016-08-15 08:49 | IPNPDOC ---
Subjective General Date/Time Seen The patient was seen on 08/15/16 at 08:44. Subject Chief Complaint/History The patient is a 61-year-old male admitted with a reason for visit of Incarerated Incisional Hernia. POD3 laparoscopic repair Patient had a loose bm, abdomen still distended. Still short of breath on minimal activity. Only able to walk around the room. Current Medications Current Medications Current Medications Acetaminophen (Tylenol Tab) 650 mg Q4HP PRN PO MILD PAIN or TEMP > 101 Last administered on 08/14/16 18:37; Start 08/11/16 at 14:30; Stop 09/11/16 at 14:29 Acetaminophen/ Hydrocodone Bitart ([place], Anexsia 5/325) 2 tab Q6HP PRN PO SEVERE PAIN (PS 8-10) Last administered on 08/14/16 16:07; Start 08/11/16 at 14 :30; Stop 08/19/16 at 14:29 Albuterol Sulfate (Proventil Neb) 2.5 mg Q6H PRN INH SHORTNESS OF BREATH; Start 08/11/16 at 12:00; Stop 09/11/16 at 11:59 Albuterol Sulfate (Proventil, Ventolin Hfa) 2 puff QID PRN INH SHORTNESS OF BREATH; Start 08/11/16 at 13:00; Stop 09/11/16 at 12:59 Allopurinol (Zyloprim) 200 mg DAILY PO Last administered on 08/15/16 08:37; Start 08/12/16 at 09:00; Stop 09/11/16 at 08:59 Apixaban (Eliquis) 5 mg BID PO Last administered on 08/15/16 08:38; Start at 09:00; Stop 08/20/16 at 08:59 Atorvastatin Calcium (Lipitor) 40 mg DAILY PO Last administered on 08/15/16 08 :38; Start 08/12/16 at 09:00; Stop 09/11/16 at 08:59 Budesonide/ Formoterol Fumarate (Symbicort 80/ 4.5mcg) 2 puff BID INH Last administered on 08/15/16 08:00; Start 08/11/16 at 21:00; Stop 09/11/16 at 20:59 Carvedilol (COReg) 12.5 mg BID PO Last administered on 08/15/16 08:38; Start 08/11/16 at 21:00; Stop 09/11/16 at 20:59 Colchicine (Colcrys) 1.2 mg ASDIRECTED PRN PO FLARE UP; Start 08/11/16 at 14:30 ; Stop 08/11/16 at 14:59; Status DC Fentanyl Citrate (Sublimaze) 25 mcg Q5MP PRN IV MODERATE PAIN (PS 4-7) Last administered on 08/12/16 20:41; Start 08/12/16 at 20:45; Stop 08/12/16 at 21:45 ; Status DC Furosemide (Lasix) 80 mg BID PO Last administered on 08/15/16 08:39; Start at 21:00; Stop 09/11/16 at 20:59; Status Future hold Gabapentin (Neurontin) 400 mg QHS PO Last administered on 08/14/16 21:04; Start 08/11/16 at 21:00; Stop 09/11/16 at 20:59 Heparin Sodium (Porcine) (Heparin) 5,000 units Q8H SQ Last administered on 08/13 05:59; Start 08/12/16 at 06:00; Stop 08/13/16 at 07:51; Status DC Home Med (Med Rec Complete!) ASDIRECTED XX ; Start 08/11/16 at 14:30; Stop at 14:30; Status DC Ketorolac Tromethamine (ToRADol) 30 mg Q6HP PRN IV MILD/MODERATE PAIN (PS 1-7) Last administered on 08/15/16 05:13; Start 08/11/16 at 15:00; Stop 08/16/16 at 14:59 Lactated Ringer's 1,000 ml @ 100 mls/hr Q10H IV Last administered on 20:45; Start 08/12/16 at 20:45; Stop 08/12/16 at 21:45; Status DC Lactated Ringer's 1,000 ml @ 125 mls/hr Q8H IV Last administered on 08/13/16 05:59; Start 08/11/16 at 14:23; Stop 08/13/16 at 07:51; Status DC Magnesium Hydroxide (Milk Of Magnesia) 30 ml BID PO Last administered on 08:39; Start 08/14/16 at 09:00; Stop 09/13/16 at 08:59 Magnesium Oxide (Mag-Ox) 400 mg BID PO Last administered on 08/15/16 08:39; Start 08/11/16 at 21:00; Stop 09/11/16 at 20:59 Morphine Sulfate (Morphine Sulfate Inj) 2 mg Q2HP PRN IV SEVERE PAIN (PS 8-10) ; Start 08/11/16 at 14:30; Stop 08/13/16 at 07:51; Status DC Morphine Sulfate (Morphine Sulfate Inj) 4 mg Q15M PRN IV MODERATE/SEVERE PAIN ( PS 5-10) Last administered on 08/12/16 14:16; Start 08/11/16 at 10:45; Stop at 14:16; Status DC Ondansetron HCl (ZOFRAN INJection) 4 mg Q4HP PRN IV NAUSEA OR VOMITING Last administered on 08/12/16 20:20; Start 08/12/16 at 20:45; Stop 08/12/16 at 21:45 ; Status DC Ondansetron HCl (ZOFRAN INJection) 4 mg Q6HP PRN IV NAUSEA OR VOMITING Last administered on 08/14/16 18:37; Start 08/11/16 at 14:30; Stop 09/11/16 at 14:29 Pantoprazole Sodium (Protonix) 40 mg DAILY PO Last administered on 08/15/16 08 :37; Start 08/11/16 at 09:00; Stop 09/11/16 at 08:59 Piperacillin Sod/ Tazobactam Sod 3.375 gm/Dextrose 50 ml @ 50 mls/hr Q6H IV Last administered on 08/13/16 04:02; Start 08/11/16 at 16:00; Stop 08/13/16 at 07:51; Status DC Senna/Docusate Sodium (Senokot S) 1 tab BID PO Last administered on 08/15/16 08:38; Start 08/11/16 at 21:00; Stop 09/11/16 at 20:59 Sodium Chloride 1,000 ml @ 100 mls/hr Q10H IV Last administered on 6/14/17at 11:43; Start 08/11/16 at 10:33; Stop 08/11/16 at 16:08; Status DC Spironolactone (Aldactone) 25 mg BID PO Last administered on 08/15/16 08:39; Start 08/11/16 at 21:00; Stop 09/11/16 at 20:59; Status Future hold Tiotropium [place] (Spiriva Handihaler) 1 inhalation DAILY INH Last administered on 08/15/16 08:00; Start 08/12/16 at 09:00; Stop 09/11/16 at 08:59 Allergies Coded Allergies: No Known Drug Allergy (Verified Allergy, Unknown, 06/04/12) Objective Physical Examination Examination GENERAL APPEARANCE:Patient seen, laying in bed, awake, alert, and oriented. More comfortable appearing but still pursed lips while talking, breathing. SKIN: Warm and moist. HEENT: Normocephalic, atraumatic. [place] palpebral conjunctiva, anicteric sclerae. Lips and mucosa appear moist. NECK: Supple, no thyromegaly. No obvious jugular venous distention. LUNGS: tight breath sounds, (+) bilateral wheezing. HEART: No chest wall abnormalities. Regular rate and rhythm with no murmurs appreciated. ABDOMEN: Abdomen is markedly round, soft, slightly less distended than yesterday. mild tender on palpation at hernia repair site and port sites. Port sites dry.. EXTREMITIES: Extremities have no deformities. No edema identified. Vital Signs Vital Signs Date Time Temp Pulse Resp B/P (MAP) Pulse Ox O2 Delivery O2 Flow Rate FiO2 08/15/16 08:38 89 112/66 08/15/16 06:00 97.5 18 96 Room Air 08/14/16 20:35 2.0 I&Os I&O- Last 24 Hours up to 6 AM 08/15/16 06:00 Intake Total 2520 ml Output Total 2550 ml Balance -30 ml Laboratory Data Labs 24H Laboratory Tests 2 08/15/16 06:00: Anion Gap 1L, Glomerular Filtration Rate > 60.0, Blood Urea Nitrogen 16, Creatinine 1.05, Sodium Level 138, Potassium Level 3.5, Chloride Level 94L, Carbon Dioxide Level 43H, Calcium Level 8.1L, Aspartate Amino Transf (AST/SGOT) 10L, Alanine Aminotransferase (ALT/SGPT) 18, Alkaline Phosphatase 65, Total Bilirubin 0.4, Total Protein 6.1L, Albumin 3.0L, Magnesium Level 2.3, Albumin/ Globulin Ratio 0.97L CBC/BMP Laboratory Tests 08/15/16 06:00 Calcium Level 8.1 L, Aspartate Amino Transf (AST/SGOT) 10 L, Alanine Aminotransferase (ALT/SGPT) 18, Alkaline Phosphatase 65, Total Bilirubin 0.4, Total Protein 6.1 L, Albumin 3.0 L 08/15/16 06:01 Red Blood Count 3.74 L, Mean Corpuscular Volume 95.7, Mean Corpuscular Hemoglobin 31.0, Mean Corpuscular Hemoglobin Concent 32.4, Red Cell Distribution Width 12.3 Impression POD3 Laparoscopic Incarcerated Incisional Hernia Repair ileus COPD morbid obesity not ready to go home. Still distended but mildly improved. Limiting factor is breathing. Will call hospitalist service. CXR, breathing treatments, continue incentives (able to get about 1500mL on first breath only. Plan / VTE VTE Prophylaxis Ordered?: Yes DARSHAN RIBEIRO MD Aug 15, 2016 08:49
--- NOTE | 2016-08-15 10:42 | IPNPDOC ---
Subjective Date Seen The patient was seen on 08/15/16. Subjective Chief Complaint/HPI The patient is a 61-year-old male admitted with a reason for visit of Incarerated Incisional Hernia. General: Denies: ROS Unobtainable, Chills, Night Sweats, Fatigue, Malaise, Normal Appetite, Other Symptoms Constitutional: Denies: Chills, Fever, Malaise, Night Sweats, Weakness, Fatigue , Weight Loss, Lethargy, Other Eyes: Denies: Pain, Vision change, Conjunctivae inflammation, Eyelid inflammation, Redness, Other ENT: Denies: Head Aches, Ear Pain, Dysphagia, Sinus Congestion, Post Nasal Drip , Sore Throat, Epistaxis, Other Symptoms Skin: Denies: Rash, Lesions, Jaundice, Bruising, Itching, Dry, Breakdown, Nail Changes, Other Pulmonary: Reports: Dyspnea, Cough, Denies: Pleuritic Chest Pain, Other Symptoms Cardiovascular: Denies: Chest Pain, Palpitations, Orthopnea, Paroxysmal Noc. Dyspnea, Edema, Lt Headedness, Other Symptoms Gastrointestinal: Reports: Abdominal Pain, Denies: Nausea, Vomiting, Diarrhea, Constipation, Melena, Hematochezia, Other Symptoms Genitourinary: Denies: Dysuria, Frequency, Incontinence, Hematuria, Retention, Other Symptoms Objective Physical Examination General Exam: Positive: Alert, Cooperative, No Acute Distress Eye Exam: Positive: PERRLA, Conjunctiva & lids normal, EOMI, Negative: Sclera icteric Chest Exam: Positive: Normal air movement, Wheezing Heart Exam: Positive: Rate Normal, Regular Rhythm Telemetry: Positive: No significant arrhythmia Abdomen Exam: Positive: Normal bowel sounds, Soft, Tenderness, Other (morbid obesity) Extremity Exam: Negative: Edema Psych Exam: Positive: Oriented x 3 Assessment /Plan Problems (1) Incarcerated incisional hernia Discussed With: Outplacement Consultant Problem Specific Plan: Consult Specialist Problem Text: POD#3 - follow as per primary team. (2) ИВАН on CPAP Status: Chronic Discussed With: Patient Problem Specific Plan: Monitor Clinically, Repeat Tests Problem Text: Patient states he has been prescribed CPAP with 2L O2 at night. He states he is not fully compliant at home secondary to discomfort. He will need assistance to bring his machine to the hospital. He states he also has a history of COPD, non-smoker, follows with pulmonology in [place]. 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 Continuous pulse oximetry with acoustic ventilatory monitoring as per ИВАН protocol. (3) DVT (deep venous thrombosis) Status: Chronic Discussed With: Patient Problem Specific Plan: Monitor Clinically Problem Text: S/P IVCF and currently anticoagulated with NOAC (Eliquis). (4) Pulmonary hypertension Status: Chronic Problem Specific Plan: Monitor Clinically (5) Asthma Status: Chronic Discussed With: Patient Problem Specific Plan: Monitor Clinically (6) Pulmonary nodule Status: Chronic Problem Text: as per medical history (7) Bilateral pulmonary embolism Status: Chronic Problem Specific Plan: Monitor Clinically Problem Text: S/P IVCF, receiving NOAC (Eliquis). (8) Afib Status: Chronic Discussed With: Patient Problem Text: Rate controlled with coreg, a/c with NOAC (9) Testicular cancer Problem Text: as per medical history (10) Gout Status: Chronic (11) CHF (congestive heart failure) Status: Chronic Discussed With: Patient Problem Text: compensated, continue home dosage of lasix diastolic failure (12) HLD (hyperlipidemia) Status: Chronic Problem Text: Continue statin therapy. Plan/VTE VTE Prophylaxis Ordered?: Yes (eliquis) Plan Diet: Continue Current Activity: Continue Current Respiratory: Wean Oxygen Diagnostics: Repeat Labs in AM, CT Appears to be exacerbation of COPD. Ambulation encouraged as well as frequent use of IS. Known history of ИВАН with CPAP and O2 and night. He states he will try and bring his machine in, but might need assistance in doing so. Continue with ИВАН protocol. Respiratory regimen. CT chest. VS, I&O, 24H, [facility] Vital Signs/I&O Vital Signs Date Time Temp Pulse Resp B/P (MAP) Pulse Ox O2 Delivery O2 Flow Rate FiO2 08/15/16 09:44 1.0 08/15/16 09:41 94 Nasal Cannula 08/15/16 08:38 89 112/66 08/15/16 06:00 97.5 18 I&O- Last 24 Hours up to 6 AM 08/15/16 06:00 Intake Total 2520 ml Output Total 2550 ml Balance -30 ml Laboratory Data 24H LABS Laboratory Tests 2 08/15/16 06:00: Anion Gap 1L, Glomerular Filtration Rate > 60.0, Blood Urea Nitrogen 16, Creatinine 1.05, Sodium Level 138, Potassium Level 3.5, Chloride Level 94L, Carbon Dioxide Level 43H, Calcium Level 8.1L, Aspartate Amino Transf (AST/SGOT) 10L, Alanine Aminotransferase (ALT/SGPT) 18, Alkaline Phosphatase 65, Total Bilirubin 0.4, Total Protein 6.1L, Albumin 3.0L, Magnesium Level 2.3, Albumin/ Globulin Ratio 0.97L CBC/BMP Laboratory Tests 08/15/16 06:00 Calcium Level 8.1 L, Aspartate Amino Transf (AST/SGOT) 10 L, Alanine Aminotransferase (ALT/SGPT) 18, Alkaline Phosphatase 65, Total Bilirubin 0.4, Total Protein 6.1 L, Albumin 3.0 L 08/15/16 06:01 Red Blood Count 3.74 L, Mean Corpuscular Volume 95.7, Mean Corpuscular Hemoglobin 31.0, Mean Corpuscular Hemoglobin Concent 32.4, Red Cell Distribution Width 12.3 JERRY WILBURN MD Aug 15, 2016 10:42
--- NOTE | 2016-08-15 10:43 | REP ---
CT study of the chest without contrast: History: Shortness of breath and cough. The patient gives a history of right testicular carcinoma, chronic kidney disease and COPD. Apparently, there is also a history of laparoscopic incarcerated incisional hernia repair and three other incisional hernia repairs on August 11, 2016. Comparison abdominal CT study is from April 13, 2016. Comparison abdominal CT study is from August 11, 2016. CT findings: The patient is rotated to the right. Digital baseball umpire for [employer] radiograph shows clips in the upper abdomen and mildly prominent heart. There is mild amount of soft tissue emphysema in the extrathoracic soft tissues along the left posterolateral lower hemithorax. Multiple bubbles of air are seen here. I cannot identify any acute rib fracture. There are a few bubbles of extrathoracic air anterolaterally as well at the lung bases. There is no evidence of pneumothorax or pneumomediastinum. There are multiple bubbles of free intraperitoneal air in the upper abdomen consistent with minimal pneumoperitoneum. These uncontained air bubbles are consistent with recent retained postoperative air. The upper abdominal structures are otherwise unremarkable. There are areas of linear subsegmental plate-like atelectasis in both lower lobes, the right middle lobe, and right upper lobe. There is a 12 mm nodular opacity in the left lower lobe on today's study on page 66 of 101 in series 201. This and the discoid atelectatic changes are new when compared with the prior study. No definite consolidation is seen. No endobronchial disease is appreciated. Impression: 1. A small amount of free air is seen in the abdomen. There is extrathoracic soft tissue gas along the anterior lateral chest wall on the left inferiorly. This is consistent with the recent history of laparoscopic incisional hernia repair. 2. Several areas of subsegmental discoid atelectasis bilaterally. 3. Ill-defined 12 mm nodular opacity left lower lobe new from April 13, 2016. This may be related to patchy atelectasis as well. 4. Otherwise unremarkable CT study of the chest. Signed by Benjamin Calloway MD 08/15/2016 11:32 A
[2016-08-15 14:00] VITALS: BP 125/69
[2016-08-15] MEDS: NORCO, ANEXSIA 5/325MG TABLET (HYDROcodone/ACETAMINOPHEN) PO PRN (21:00)
[2016-08-15] MEDS: GABAPENTIN 400 MG CAP PO SCH (21:03)
[2016-08-15 22:00] VITALS: BP 122/65
[2016-08-16] MEDS: ALBUTEROL SULFATE 2.5 MG/0.5 ML INH NEB SOLN NEB SCH ×4 (01:27→18:07)
[2016-08-16 06:00] VITALS: BP 132/78
[2016-08-16] MEDS ORDERED: ALBUTEROL SULFATE 2.5 MG/0.5 ML INH NEB SOLN INH PRN (06:00)
[2016-08-16 07:10] LABS: MEAN CORPUSCULAR HEMOGLOBIN 31.3 pg (27.0-33.0); MEAN CORPUSCULAR HGB CONC 32.8 g/dl (32.0-36.5); MEAN CORPUSCULAR VOLUME 95.5 fl (80.0-96.0); RED CELL DISTRIBUTION WIDTH 12.4 % (11.5-14.5)
[2016-08-16 07:30] LABS: ALBUMIN 2.9 GM/DL (3.2-5.2); ALBUMIN/GLOBULIN RATIO 0.94 (1.00-1.93); ALKALINE PHOSPHATASE 62 U/L (45-117); ALT/SGPT 16 U/L (12-78); AST/SGOT 8 U/L (15-37); BILIRUBIN,TOTAL 0.4 MG/DL (0.2-1.0); BLOOD UREA NITROGEN 14 MG/DL (7-18); CALCIUM LEVEL 8.1 MG/DL (8.8-10.2); CHLORIDE LEVEL 95 MEQ/L (98-107); CREATININE FOR GFR 0.84 MG/DL (0.70-1.30); GLOMERULAR FILTRATION RATE > 60.0 (>49); GLUCOSE, FASTING 99 MG/DL (80-110); POTASSIUM SERUM 3.3 MEQ/L (3.5-5.1); SODIUM LEVEL 141 MEQ/L (136-145)
[2016-08-16] MEDS: SYMBICORT 80/4.5MCG INHALER 6GM INH SCH ×2 (07:37→18:30)
[2016-08-16] MEDS: TIOTROPIUM INHALER/CAPSULE (SPIRIVA) INH SCH (07:37)
[2016-08-16 08:00] LABS: CARBON DIOXIDE LEVEL 48 MEQ/L (21-32)
[2016-08-16] MEDS: APIXABAN 5 MG TAB (ELIQUIS) PO SCH ×2 (08:38→20:43)
[2016-08-16] MEDS: ATORVASTATIN 20 MG TAB PO SCH (08:38)
[2016-08-16] MEDS: PANTOPRAZOLE 40MG TAB (PROTONIX) PO SCH (08:38)
[2016-08-16] MEDS: SPIRONOLACTONE 25 MG TAB PO SCH ×2 (08:38→20:41)
[2016-08-16] MEDS: SENOKOT S TAB PO SCH ×2 (08:38→20:42)
[2016-08-16] MEDS: MOM 30ML SUSPENSION UDC PO SCH ×2 (08:39→20:43)
[2016-08-16] MEDS: ALLOPURINOL 100 MG TAB PO SCH (08:39)
[2016-08-16] MEDS: FUROSEMIDE 80 MG TAB PO SCH ×2 (08:39→20:41)
[2016-08-16] MEDS: MAGNESIUM OXIDE 400 MG TAB (MAG-OX) PO SCH ×2 (08:39→20:42)
[2016-08-16] MEDS: CARVedilol 12.5 MG TAB PO SCH ×2 (08:40→20:43)
[2016-08-16 14:00] VITALS: BP 130/82
[2016-08-16 18:31] VITALS: O2SAT 95
[2016-08-16] MEDS: GABAPENTIN 400 MG CAP PO SCH (20:40)
[2016-08-16 22:00] VITALS: BP 140/82
[2016-08-17 06:00] VITALS: BP 120/71
[2016-08-17 06:53] LABS: MEAN CORPUSCULAR HEMOGLOBIN 31.9 pg (27.0-33.0); MEAN CORPUSCULAR HGB CONC 33.6 g/dl (32.0-36.5); RED CELL DISTRIBUTION WIDTH 12.5 % (11.5-14.5); WHITE BLOOD COUNT 5.4 K/mm3 (4.0-10.0)
[2016-08-17] MEDS: TIOTROPIUM INHALER/CAPSULE (SPIRIVA) INH SCH (07:22)
[2016-08-17] MEDS: ALBUTEROL SULFATE 2.5 MG/0.5 ML INH NEB SOLN NEB SCH ×4 (07:23→23:04)
[2016-08-17] MEDS: SYMBICORT 80/4.5MCG INHALER 6GM INH SCH ×2 (07:23→20:46)
[2016-08-17 07:26] LABS: ALKALINE PHOSPHATASE 61 U/L (45-117); ALT/SGPT 18 U/L (12-78); AST/SGOT 10 U/L (15-37); BILIRUBIN,TOTAL 0.4 MG/DL (0.2-1.0); BLOOD UREA NITROGEN 13 MG/DL (7-18); CALCIUM LEVEL 8.4 MG/DL (8.8-10.2); CHLORIDE LEVEL 95 MEQ/L (98-107); CREATININE FOR GFR 0.95 MG/DL (0.70-1.30); GLUCOSE, FASTING 105 MG/DL (80-110); MAGNESIUM LEVEL 2.2 MG/DL (1.8-2.4); POTASSIUM SERUM 3.8 MEQ/L (3.5-5.1); SODIUM LEVEL 144 MEQ/L (136-145)
[2016-08-17 07:36] LABS: ANION GAP 9 MEQ/L (8-16); CARBON DIOXIDE LEVEL 40 MEQ/L (21-32)
[2016-08-17 07:45] LABS: ALBUMIN 2.8 GM/DL (3.2-5.2); ALBUMIN/GLOBULIN RATIO 0.88 (1.00-1.93)
[2016-08-17] MEDS: SENOKOT S TAB PO SCH ×2 (08:55→20:54)
[2016-08-17] MEDS: ATORVASTATIN 20 MG TAB PO SCH (08:55)
[2016-08-17] MEDS: FUROSEMIDE 80 MG TAB PO SCH ×2 (08:55→20:53)
[2016-08-17] MEDS: CARVedilol 12.5 MG TAB PO SCH ×2 (08:55→20:53)
[2016-08-17] MEDS: APIXABAN 5 MG TAB (ELIQUIS) PO SCH ×2 (08:55→20:53)
[2016-08-17] MEDS: PANTOPRAZOLE 40MG TAB (PROTONIX) PO SCH (08:56)
[2016-08-17] MEDS: ALLOPURINOL 100 MG TAB PO SCH (08:56)
[2016-08-17] MEDS: MOM 30ML SUSPENSION UDC PO SCH ×2 (08:56→20:53)
[2016-08-17] MEDS: MAGNESIUM OXIDE 400 MG TAB (MAG-OX) PO SCH ×2 (08:56→20:53)
[2016-08-17] MEDS: SPIRONOLACTONE 25 MG TAB PO SCH ×2 (08:57→20:53)
[2016-08-17 14:00] VITALS: BP 132/85
[2016-08-17] MEDS ORDERED: ISOVUE-370 76% 100ML VIAL (Q9967) As Ordered ONE (15:22)
--- NOTE | 2016-08-17 16:28 | REP ---
TWO VIEW CHEST: Two views of the chest are performed and compared to multiple prior exams. Mild patchy atelectasis or infiltrate is seen in the left lung base. There are scattered interstitial fibrotic changes. Heart is enlarged. There is touristy of the thoracic aorta. The mediastinal silhouette is unchanged. There are mild degenerative changes of the spine. IMPRESSION: Chronic fibrotic changes. Mild patchy atelectasis or infiltrate left lung base. Signed by Amando Cedeno MD 08/17/2016 05:07 P
--- NOTE | 2016-08-17 16:49 | REP ---
CT ANGIOGRAM OF THE CHEST: TECHNIQUE: Axial contrast enhanced images from the thoracic inlet to the upper abdomen using 100 mL Isovue 370 intravenous contrast material with multiplanar reformations. I do not see significant pulmonary embolism. There is no evidence of thoracic aortic aneurysm or dissection. The heart is not enlarged. Normal sized lymph nodes are seen in the mediastinal and hilar regions. There is a tiny left effusion. There is mild increase in left lower lobe atelectasis/infiltrate. Scattered fibroatelectatic changes are also noted. There are degenerative changes of the spine. There appears to be a tiny cyst in the liver. IMPRESSION: No CT evidence of pulmonary embolism. Mild increase in left lower lobe atelectasis/infiltrate. Tiny left effusion. Signed by Amando Cedeno MD 08/17/2016 05:07 P
[2016-08-17] MEDS ORDERED: ALBUTEROL SULFATE 2.5 MG/0.5 ML INH NEB SOLN NEB SCH (17:07)
[2016-08-17] MEDS: methylPREDNISolone INJ 125 MG/2 ML VIAL (J2930) IV SCH (17:55)
--- NOTE | 2016-08-17 18:08 | IPNPDOC ---
Subjective Date Seen The patient was seen on 08/17/16. Subjective Chief Complaint/HPI The patient is a 61-year-old male admitted with a reason for visit of Incarerated Incisional Hernia. Events since last encounter No change in abdomen, some hoarseness in voice, sob with exertion, no cough, no fever, no chills, tolerating diet Constitutional: Denies: Chills, Fever Pulmonary: Reports: Dyspnea, Denies: Cough Cardiovascular: Denies: Chest Pain, Palpitations Gastrointestinal: Denies: Nausea, Vomiting Objective Physical Examination General Exam: Positive: Alert, Cooperative, No Acute Distress Eye Exam: Positive: PERRLA, Conjunctiva & lids normal, EOMI, Negative: Sclera icteric Chest Exam: Positive: Wheezing, Diminished, Other (I:E 1:4), Negative: Rales, Rhonchi Heart Exam: Positive: Rate Normal, Regular Rhythm Abdomen Exam: Positive: BS Hypoactive, Other (morbid obesity), Negative: Tenderness (distended) Extremity Exam: Negative: Edema Psych Exam: Positive: Oriented x 3 Assessment /Plan Problems (1) Incarcerated incisional hernia Discussed With: Electroencephalograph Technician Problem Specific Plan: Consult Specialist Problem Text: POD#4 - follow as per primary team. (2) ИВАН on CPAP Status: Chronic Discussed With: Patient Problem Specific Plan: Monitor Clinically, Repeat Tests Problem Text: Patient states he has been prescribed CPAP with 2L O2 at night. He states he is not fully compliant at home secondary to discomfort. We discussed using cpap at bedside with RT He states he also has a history of COPD, non-smoker, follows with pulmonology in [place]. 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 Continuous pulse oximetry with acoustic ventilatory monitoring as per ИВАН protocol. (3) DVT (deep venous thrombosis) Status: Chronic Discussed With: Patient Problem Specific Plan: Monitor Clinically Problem Text: S/P IVCF and currently anticoagulated with NOAC (Eliquis). CT angio neg 08/17/16 (4) Pulmonary hypertension Status: Chronic Problem Specific Plan: Monitor Clinically (5) Asthma Status: Acute Discussed With: Patient Problem Specific Plan: Monitor Clinically Problem Text: Feels sob, wheezing, no cough, trouble getting air out will give steroids, more aggressive nebs- I d/w Dr. Mcdonough Resp panel neg CT angio neg for PE, no significant infiltrate, no evidence of congestion (6) Pulmonary nodule Status: Chronic Problem Text: as per medical history (7) Bilateral pulmonary embolism Status: Chronic Problem Specific Plan: Monitor Clinically Problem Text: S/P IVCF, receiving NOAC (Eliquis). (8) Afib Status: Chronic Discussed With: Patient Problem Text: Rate controlled with coreg, a/c with NOAC (9) Testicular cancer Problem Text: as per medical history (10) Gout Status: Chronic (11) CHF (congestive heart failure) Status: Chronic Discussed With: Patient Problem Text: compensated, continue home dosage of lasix diastolic failure (12) HLD (hyperlipidemia) Status: Chronic Problem Text: Continue statin therapy. Plan/VTE VTE Prophylaxis Ordered?: Yes (eliquis) Plan Diet: Continue Current Activity: Continue Current Respiratory: Wean Oxygen Diagnostics: Repeat Labs in AM, CT VS, I&O, 24H, [facility] Vital Signs/I&O Vital Signs Date Time Temp Pulse Resp B/P (MAP) Pulse Ox O2 Delivery O2 Flow Rate FiO2 08/17/16 14:00 98.3 91 19 132/85 (101) 97 Nasal Cannula 2.0 I&O- Last 24 Hours up to 6 AM 08/17/16 06:00 Intake Total 1440 ml Output Total 2850 ml Balance -1410 ml Laboratory Data 24H LABS Laboratory Tests 2 08/17/16 06:36: Anion Gap 9, Blood Urea Nitrogen 13, Creatinine 0.95, Sodium Level 144, Potassium Level 3.8, Chloride Level 95L, Carbon Dioxide Level 40H, Calcium Level 8.4L, Aspartate Amino Transf (AST/SGOT) 10L, Alanine Aminotransferase (ALT /SGPT) 18, Alkaline Phosphatase 61, Total Bilirubin 0.4, Total Protein 6.0L, Albumin 2.8L, Magnesium Level 2.2, Albumin/Globulin Ratio 0.88L CBC/BMP Laboratory Tests 08/17/16 06:36 Red Blood Count 3.73 L, Mean Corpuscular Volume 95.0, Mean Corpuscular Hemoglobin 31.9, Mean Corpuscular Hemoglobin Concent 33.6, Red Cell Distribution Width 12.5, Calcium Level 8.4 L, Aspartate Amino Transf (AST/SGOT) 10 L, Alanine Aminotransferase (ALT/SGPT) 18, Alkaline Phosphatase 61, Total Bilirubin 0.4, Total Protein 6.0 L, Albumin 2.8 L Microbiology Microbiology 08/17/16 Respiratory Virus Panel (PCR) ([place]) - Final, Complete FLJOE,DARIUS Cagle MD Aug 17, 2016 18:08
[2016-08-17 20:44] VITALS: O2SAT 95
[2016-08-17] MEDS: GABAPENTIN 400 MG CAP PO SCH (20:52)
[2016-08-17 22:00] VITALS: BP 140/87
[2016-08-17 23:00] VITALS: O2SAT 94
[2016-08-18] MEDS: methylPREDNISolone INJ 125 MG/2 ML VIAL (J2930) IV SCH (05:48)
[2016-08-18 06:00] VITALS: BP 139/78
[2016-08-18] MEDS ORDERED: ALBUTEROL SULFATE 2.5 MG/0.5 ML INH NEB SOLN INH PRN (06:00)
[2016-08-18 07:02] LABS: MEAN CORPUSCULAR HEMOGLOBIN 30.7 pg (27.0-33.0); MEAN CORPUSCULAR HGB CONC 32.4 g/dl (32.0-36.5); MEAN CORPUSCULAR VOLUME 94.8 fl (80.0-96.0); RED CELL DISTRIBUTION WIDTH 12.3 % (11.5-14.5)
[2016-08-18 07:33] LABS: ALBUMIN 2.8 GM/DL (3.2-5.2); ALKALINE PHOSPHATASE 57 U/L (45-117); ALT/SGPT 14 U/L (12-78); ANION GAP 3 MEQ/L (8-16); AST/SGOT 6 U/L (15-37); BILIRUBIN,TOTAL 0.5 MG/DL (0.2-1.0); BLOOD UREA NITROGEN 17 MG/DL (7-18); CALCIUM LEVEL 8.7 MG/DL (8.8-10.2); CARBON DIOXIDE LEVEL 42 MEQ/L (21-32); CHLORIDE LEVEL 96 MEQ/L (98-107); GLOMERULAR FILTRATION RATE > 60.0 (>49); GLUCOSE, FASTING 130 MG/DL (80-110); POTASSIUM SERUM 3.8 MEQ/L (3.5-5.1); SODIUM LEVEL 141 MEQ/L (136-145); TOTAL PROTEIN 5.6 GM/DL (6.4-8.2)
[2016-08-18] MEDS: ALBUTEROL SULFATE 2.5 MG/0.5 ML INH NEB SOLN NEB SCH ×5 (07:56→22:58)
[2016-08-18] MEDS: SYMBICORT 80/4.5MCG INHALER 6GM INH SCH ×2 (07:56→19:52)
[2016-08-18] MEDS: TIOTROPIUM INHALER/CAPSULE (SPIRIVA) INH SCH (07:56)
[2016-08-18] MEDS: FUROSEMIDE 80 MG TAB PO SCH ×2 (08:42→20:08)
[2016-08-18] MEDS: ATORVASTATIN 20 MG TAB PO SCH (08:42)
[2016-08-18] MEDS: PANTOPRAZOLE 40MG TAB (PROTONIX) PO SCH (08:42)
[2016-08-18] MEDS: ALLOPURINOL 100 MG TAB PO SCH (08:42)
[2016-08-18] MEDS: CARVedilol 12.5 MG TAB PO SCH ×2 (08:43→20:07)
[2016-08-18] MEDS: SENOKOT S TAB PO SCH ×2 (08:43→20:08)
[2016-08-18] MEDS: SPIRONOLACTONE 25 MG TAB PO SCH ×2 (08:43→20:08)
[2016-08-18] MEDS: MOM 30ML SUSPENSION UDC PO SCH ×2 (08:43→20:08)
[2016-08-18] MEDS: MAGNESIUM OXIDE 400 MG TAB (MAG-OX) PO SCH ×2 (08:43→20:08)
[2016-08-18] MEDS: APIXABAN 5 MG TAB (ELIQUIS) PO SCH ×2 (08:43→20:07)
--- NOTE | 2016-08-18 08:48 | IPNPDOC ---
Subjective Date Seen The patient was seen on 08/18/16. Subjective Chief Complaint/HPI The patient is a 61-year-old male admitted with a reason for visit of Incarerated Incisional Hernia. Events since last encounter Feeling better, slept last night, passing flatus, breathing has eased, has not moved around today, but feels less sob even at rest Constitutional: Denies: Chills, Fever Skin: Denies: Rash, Lesions Pulmonary: Reports: Dyspnea, Denies: Cough Cardiovascular: Denies: Chest Pain, Palpitations Gastrointestinal: Denies: Nausea, Vomiting, Abdominal Pain Objective Physical Examination General Exam: Positive: Alert, Cooperative, No Acute Distress Eye Exam: Positive: Sclera icteric ENT Exam: Positive: Mucous membr. moist/pink Chest Exam: Positive: Clear to auscultation, Other (I:E 1:3), Negative: Rales, Rhonchi, Wheezing Heart Exam: Positive: Rate Normal, Regular Rhythm Abdomen Exam: Positive: BS Hypoactive, Soft (distended but soft), Other ( morbid obesity), Negative: Tenderness Extremity Exam: Negative: Edema Psych Exam: Positive: Oriented x 3 Assessment /Plan Problems (1) Incarcerated incisional hernia Discussed With: Drug Clerk Problem Specific Plan: Consult Specialist Problem Text: POD#5 - follow as per primary team. (2) ИВАН on CPAP Status: Chronic Discussed With: Patient Problem Specific Plan: Monitor Clinically, Repeat Tests Problem Text: Patient states he has been prescribed CPAP with 2L O2 at night. He states he is not fully compliant at home secondary to discomfort. We discussed using cpap at bedside with RT. He was not wearing it this morning on my arrival, but did have supplemental oxygen He states he also has a history of COPD, non-smoker, follows with pulmonology in [place]. 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 Continuous pulse oximetry with acoustic ventilatory monitoring as per ИВАН protocol. (3) DVT (deep venous thrombosis) Status: Chronic Discussed With: Patient Problem Specific Plan: Monitor Clinically Problem Text: S/P IVCF and currently anticoagulated with NOAC (Eliquis). CT angio neg 08/17/16 (4) Pulmonary hypertension Status: Chronic Problem Specific Plan: Monitor Clinically (5) Asthma Status: Acute Discussed With: Patient Problem Specific Plan: Monitor Clinically Problem Text: Improved asthma exacerbation on steroids- weaned to prednisone 40 mg daily 08/[address] angio neg for PE, no significant infiltrate, no evidence of congestion (6) Pulmonary nodule Status: Chronic Problem Text: as per medical history (7) Bilateral pulmonary embolism Status: Chronic Problem Specific Plan: Monitor Clinically Problem Text: S/P IVCF, receiving NOAC (Eliquis)- CT angio 08/17/16 neg (8) Afib Status: Chronic Discussed With: Patient Problem Text: Rate controlled with coreg, a/c with NOAC (9) Testicular cancer Problem Text: as per medical history (10) Gout Status: Chronic (11) CHF (congestive heart failure) Status: Chronic Discussed With: Patient Problem Text: compensated, continue home dosage of lasix diastolic failure (12) HLD (hyperlipidemia) Status: Chronic Problem Text: Continue statin therapy. Plan/VTE VTE Prophylaxis Ordered?: Yes (eliquis) Plan Diet: Continue Current Activity: Continue Current Respiratory: Wean Oxygen Diagnostics: Repeat Labs in AM, CT VS, I&O, 24H, [facility]bone Vital Signs/I&O Vital Signs Date Time Temp Pulse Resp B/P (MAP) Pulse Ox O2 Delivery O2 Flow Rate FiO2 08/18/16 08:43 88 139/78 08/18/16 06:00 98.7 18 95 Nasal Cannula 2.0 I&O- Last 24 Hours up to 6 AM 08/18/16 05:59 Intake Total 2680 ml Output Total 2175 ml Balance 505 ml Laboratory Data 24H LABS Laboratory Tests 2 08/18/16 06:32: Anion Gap 3L, Glomerular Filtration Rate > 60.0, Blood Urea Nitrogen 17, Creatinine 0.90, Sodium Level 141, Potassium Level 3.8, Chloride Level 96L, Carbon Dioxide Level 42H, Calcium Level 8.7L, Aspartate Amino Transf (AST/SGOT) 6L, Alanine Aminotransferase (ALT/SGPT) 14, Alkaline Phosphatase 57, Total Bilirubin 0.5, Total Protein 5.6L, Albumin 2.8L, Magnesium Level 2.0, Albumin/ Globulin Ratio 1.00 CBC/BMP Laboratory Tests 08/18/16 06:32 Red Blood Count 3.86 L, Mean Corpuscular Volume 94.8, Mean Corpuscular Hemoglobin 30.7, Mean Corpuscular Hemoglobin Concent 32.4, Red Cell Distribution Width 12.3, Calcium Level 8.7 L, Aspartate Amino Transf (AST/SGOT) 6 L, Alanine Aminotransferase (ALT/SGPT) 14, Alkaline Phosphatase 57, Total Bilirubin 0.5, Total Protein 5.6 L, Albumin 2.8 L Microbiology Microbiology 08/17/16 Respiratory Virus Panel (PCR) ([facility]) - Final, Complete FLINT,DARIUS Cagle MD Aug 18, 2016 08:48
[2016-08-18] MEDS: predniSONE 20 MG TAB PO SCH (09:23)
[2016-08-18 14:00] VITALS: BP 158/92
[2016-08-18] MEDS: GABAPENTIN 400 MG CAP PO SCH (20:07)
[2016-08-18] MEDS: AZELASTINE 137MCG NASAL SPY 30 ML (ASTELIN) SCH (20:08)
[2016-08-18 22:00] VITALS: BP 139/82
[2016-08-19] MEDS: ALBUTEROL SULFATE 2.5 MG/0.5 ML INH NEB SOLN NEB SCH ×5 (03:51→20:00)
[2016-08-19 06:00] VITALS: BP 132/74
[2016-08-19 06:35] LABS: MEAN CORPUSCULAR HEMOGLOBIN 31.3 pg (27.0-33.0); MEAN CORPUSCULAR HGB CONC 33.2 g/dl (32.0-36.5); MEAN CORPUSCULAR VOLUME 94.5 fl (80.0-96.0); RED CELL DISTRIBUTION WIDTH 12.6 % (11.5-14.5)
[2016-08-19 06:56] LABS: ANION GAP 2 MEQ/L (8-16); BLOOD UREA NITROGEN 23 MG/DL (7-18); CALCIUM LEVEL 8.8 MG/DL (8.8-10.2); CARBON DIOXIDE LEVEL 44 MEQ/L (21-32); CHLORIDE LEVEL 98 MEQ/L (98-107); CREATININE FOR GFR 1.14 MG/DL (0.70-1.30); GLOMERULAR FILTRATION RATE > 60.0 (>49); GLUCOSE, FASTING 112 MG/DL (80-110); POTASSIUM SERUM 3.4 MEQ/L (3.5-5.1); SODIUM LEVEL 144 MEQ/L (136-145)
[2016-08-19] MEDS: TIOTROPIUM INHALER/CAPSULE (SPIRIVA) INH SCH (07:18)
[2016-08-19] MEDS: SYMBICORT 80/4.5MCG INHALER 6GM INH SCH ×2 (07:18→20:31)
[2016-08-19] MEDS ORDERED: POTASSIUM CHLORIDE 10 MEQ SR TABLET PO ONE (07:30)
[2016-08-19] MEDS: MOM 30ML SUSPENSION UDC PO SCH ×2 (09:00→21:00)
[2016-08-19] MEDS: SENOKOT S TAB PO SCH ×2 (09:00→21:00)
--- NOTE | 2016-08-19 09:01 | IPNPDOC ---
Subjective Date Seen The patient was seen on 08/19/16. Subjective Chief Complaint/HPI The patient is a 61-year-old male admitted with a reason for visit of Incarerated Incisional Hernia. Events since last encounter Shortness of breath improved, but still greater than normal even when walking to bathroom, no chest pain, no cough, tolerating diet, no abd pain, but abd more distended than normal Constitutional: Denies: Chills, Fever Pulmonary: Reports: Dyspnea, Denies: Cough Cardiovascular: Denies: Chest Pain, Palpitations Gastrointestinal: Denies: Nausea, Vomiting, Abdominal Pain Objective Physical Examination General Exam: Positive: Alert, No Acute Distress ENT Exam: Positive: Mucous membr. moist/pink Chest Exam: Positive: Clear to auscultation, Other (I:E 1:3), Negative: Rales, Rhonchi, Wheezing Heart Exam: Positive: Rate Normal, Regular Rhythm Abdomen Exam: Positive: BS Hypoactive, Soft (distended but soft), Other ( morbid obesity), Negative: Tenderness Extremity Exam: Negative: Edema Psych Exam: Positive: Oriented x 3 Assessment /Plan Problems (1) Asthma Status: Acute Discussed With: Patient Problem Specific Plan: Monitor Clinically Problem Text: Improved asthma exacerbation on steroids- weaned to prednisone 40 mg daily 08/[address] angio neg for PE, no significant infiltrate, no evidence of congestion Required supplemental oxygen yesterday with activity, and does again today. Has oxygen at night for home, has concentrator - may need more portability Combination of post op abd distention and asthma- may result in need for daytime supplemental oxygen (2) Incarcerated incisional hernia Discussed With: Automatic Spinning Lathe Setter Problem Specific Plan: Consult Specialist Problem Text: POD#6 - follow as per primary team. (3) ИВАН on CPAP Status: Chronic Discussed With: Patient Problem Specific Plan: Monitor Clinically, Repeat Tests Problem Text: Patient states he has been prescribed CPAP with 2L O2 at night. He states he is not fully compliant at home secondary to discomfort. We discussed using cpap at bedside with RT. He did have supplemental oxygen this morning although it was not noted on his vital signs He states he also has a history of COPD, non-smoker, follows with pulmonology in [place]. 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 Continuous pulse oximetry with acoustic ventilatory monitoring as per ИВАН protocol. (4) DVT (deep venous thrombosis) Status: Chronic Discussed With: Patient Problem Specific Plan: Monitor Clinically Problem Text: S/P IVCF and currently anticoagulated with NOAC (Eliquis). CT angio neg 08/17/16 (5) Pulmonary hypertension Status: Chronic Problem Specific Plan: Monitor Clinically (6) Pulmonary nodule Status: Chronic Problem Text: as per medical history (7) Bilateral pulmonary embolism Status: Chronic Problem Specific Plan: Monitor Clinically Problem Text: S/P IVCF, receiving NOAC (Eliquis)- CT angio 08/17/16 neg (8) Afib Status: Chronic Discussed With: Patient Problem Text: Rate controlled with coreg, a/c with NOAC (9) Testicular cancer Problem Text: as per medical history (10) Gout Status: Chronic (11) CHF (congestive heart failure) Status: Chronic Discussed With: Patient Problem Text: compensated, continue home dosage of lasix diastolic failure (12) HLD (hyperlipidemia) Status: Chronic Problem Text: Continue statin therapy. Plan/VTE VTE Prophylaxis Ordered?: Yes (eliquis) Plan Diet: Continue Current Activity: Continue Current Respiratory: Wean Oxygen Diagnostics: Repeat Labs in AM, [facility] Vital Signs Date Time Temp Pulse Resp B/P (MAP) Pulse Ox O2 Delivery O2 Flow Rate FiO2 08/19/16 08:50 91 Nasal Cannula 2.0 08/19/16 08:45 72 08/19/16 07:34 18 08/19/16 06:00 98.1 132/74 (93) I&O- Last 24 Hours up to 6 AM 08/19/16 06:00 Intake Total 2760 ml Output Total 2350 ml Balance 410 ml Laboratory Data 24H LABS Laboratory Tests 2 08/19/16 06:12: Anion Gap 2L, Glomerular Filtration Rate > 60.0, Blood Urea Nitrogen 23H, Creatinine 1.14, Sodium Level 144, Potassium Level 3.4L, Chloride Level 98, Carbon Dioxide Level 44H, Calcium Level 8.8 CBC/BMP Laboratory Tests 08/19/16 06:12 Red Blood Count 3.82 L, Mean Corpuscular Volume 94.5, Mean Corpuscular Hemoglobin 31.3, Mean Corpuscular Hemoglobin Concent 33.2, Red Cell Distribution Width 12.6, Calcium Level 8.8 Microbiology Microbiology 6/20/17 Respiratory Virus Panel (PCR) ([facility]) - Final, Complete JOHANA,DARIUS Cagle MD Aug 19, 2016 09:01
[2016-08-19] MEDS: SPIRONOLACTONE 25 MG TAB PO SCH ×2 (09:29→22:02)
[2016-08-19] MEDS: ALLOPURINOL 100 MG TAB PO SCH (09:29)
[2016-08-19] MEDS: predniSONE 20 MG TAB PO SCH (09:30)
[2016-08-19] MEDS: APIXABAN 5 MG TAB (ELIQUIS) PO SCH ×2 (09:30→22:03)
[2016-08-19] MEDS: ATORVASTATIN 20 MG TAB PO SCH (09:30)
[2016-08-19] MEDS: FUROSEMIDE 80 MG TAB PO SCH ×2 (09:30→22:02)
[2016-08-19] MEDS: CARVedilol 12.5 MG TAB PO SCH ×2 (09:31→22:03)
[2016-08-19] MEDS: PANTOPRAZOLE 40MG TAB (PROTONIX) PO SCH (09:31)
[2016-08-19] MEDS: MAGNESIUM OXIDE 400 MG TAB (MAG-OX) PO SCH ×2 (09:31→22:02)
[2016-08-19] MEDS: AZELASTINE 137MCG NASAL SPY 30 ML (ASTELIN) SCH ×2 (09:32→22:04)
[2016-08-19 14:00] VITALS: BP 154/79
[2016-08-19 22:00] VITALS: BP 140/79
[2016-08-19] MEDS: GABAPENTIN 400 MG CAP PO SCH (22:02)
[2016-08-20 00:30] VITALS: O2SAT 93
[2016-08-20] MEDS: ALBUTEROL SULFATE 2.5 MG/0.5 ML INH NEB SOLN NEB SCH ×5 (00:33→15:14)
[2016-08-20 06:00] VITALS: BP 142/63
[2016-08-20 06:09] LABS: MEAN CORPUSCULAR HEMOGLOBIN 30.9 pg (27.0-33.0); MEAN CORPUSCULAR HGB CONC 32.7 g/dl (32.0-36.5); MEAN CORPUSCULAR VOLUME 94.6 fl (80.0-96.0); RED CELL DISTRIBUTION WIDTH 12.5 % (11.5-14.5); WHITE BLOOD COUNT 7.4 K/mm3 (4.0-10.0)
[2016-08-20 06:20] LABS: ANION GAP 1 MEQ/L (8-16); BLOOD UREA NITROGEN 26 MG/DL (7-18); CARBON DIOXIDE LEVEL 45 MEQ/L (21-32); CHLORIDE LEVEL 97 MEQ/L (98-107); CREATININE FOR GFR 1.19 MG/DL (0.70-1.30); GLOMERULAR FILTRATION RATE > 60.0 (>49); GLUCOSE, FASTING 107 MG/DL (80-110); POTASSIUM SERUM 3.9 MEQ/L (3.5-5.1); SODIUM LEVEL 143 MEQ/L (136-145)
[2016-08-20] MEDS: TIOTROPIUM INHALER/CAPSULE (SPIRIVA) INH SCH (07:09)
[2016-08-20] MEDS: SYMBICORT 80/4.5MCG INHALER 6GM INH SCH (07:09)
[2016-08-20] MEDS: SENOKOT S TAB PO SCH (09:00)
[2016-08-20] MEDS: MOM 30ML SUSPENSION UDC PO SCH (09:00)
[2016-08-20] MEDS: MAGNESIUM OXIDE 400 MG TAB (MAG-OX) PO SCH (09:21)
[2016-08-20] MEDS: SPIRONOLACTONE 25 MG TAB PO SCH (09:22)
[2016-08-20] MEDS: PANTOPRAZOLE 40MG TAB (PROTONIX) PO SCH (09:22)
[2016-08-20] MEDS: predniSONE 20 MG TAB PO SCH (09:22)
[2016-08-20] MEDS: ALLOPURINOL 100 MG TAB PO SCH (09:22)
[2016-08-20] MEDS: ATORVASTATIN 20 MG TAB PO SCH (09:22)
[2016-08-20 09:23] VITALS: BP 137/87
[2016-08-20] MEDS: AZELASTINE 137MCG NASAL SPY 30 ML (ASTELIN) SCH (09:23)
[2016-08-20] MEDS: CARVedilol 12.5 MG TAB PO SCH (09:23)
[2016-08-20] MEDS: FUROSEMIDE 80 MG TAB PO SCH (09:23)
[2016-08-20] MEDS ORDERED: PRED20TA PO (14:08)
--- NOTE | 2016-08-21 01:45 | DSES ---
DATE OF ADMISSION: 08/11/2016 DATE OF DISCHARGE: 08/20/2016 ADMISSION DIAGNOSIS: Incarcerated incisional hernia and reducible ventral hernias. POSTOPERATIVE DIAGNOSIS: Incarcerated incisional hernia and reducible ventral hernias. HOSPITAL COURSE: The patient is a 61-year-old male who presented to the emergency room (ER) with severe periumbilical pains with a very large lump that was very red and inflamed on the skin surface. CT scan showed multiple midline hernias. He had one very large hernia with fat stranding just superior to the umbilicus. After careful history and physical, he was found to have multiple hernias on the abdominal wall. Recommendation was to proceed with laparoscopic, possible open incarcerated hernia repair. He underwent that procedure on the . Postoperatively, he did well. He had no problems with nausea or vomiting. He was passing gas, ambulating, having good bowel movements. However, he did have an exacerbation of chronic obstructive pulmonary disease (COPD) postoperatively, which did prolong his stay. There was a little bit of a slight ileus for postoperative day #1 and day two as expected due to the extensive lysis of adhesions and manipulation of the small bowel. However, he did not have any nausea or vomiting with that. He was evaluated by medicine who started him on some steroids and respiratory treatments; however, he continued to have difficulty with his breathing. He was sufficient on room air at rest. However, with ambulation he continued to desaturate down the mid 80s, so after repeated attempts at weaning him off the oxygen recommendation from medicine team was to send him home with ambulatory oxygen. He was already on oxygen at night when he sleeps. He is a patient of the [facility] ([place] in [place]. It took the last 2 days to get him set up with home [id number] oxygen; however, I have been informed that he was just cleared and has home oxygen set up. Therefore, he will be discharged home today and will followup with me in the office in about one more week. PROCEDURES: He underwent a laparoscopic incarcerated incisional and laparoscopic repair of three reducible incisional hernias on 08/12/2016. PLAN: Discharge home today with pain medications, stool softeners. He will also be discharged home with prednisone 40 mg daily for the next 3 days. That is per medicine recommendations. He will followup me in 1 week for his postoperative appointment and [facility] at [facility].
== END 2016-08-20 15:35 | disposition home or self-care (01) | DRG 354 ==
LOC: M ED 11:17 → M ED INP 14:23 → M MS5PR 17:00
PROVIDERS: ADMIT Surgery; ATTEND Surgery
PROC: 0WUF4JZ Supplement Abdominal Wall with Synthetic Substitute, Percutaneous Endoscopic Approach (ICD-10-PCS; principal; 2016-08-11)
DX: K43.0 Incisional hernia with obstruction, without gangrene (principal); J44.1 Chronic obstructive pulmonary disease with (acute) exacerbation; I48.91 Unspecified atrial fibrillation; I25.10 Atherosclerotic heart disease of native coronary artery without angina pectoris; Z86.711 Personal history of pulmonary embolism; E66.01 Morbid (severe) obesity due to excess calories; M10.9 Gout, unspecified; I10 Essential (primary) hypertension; I27.2 Other secondary pulmonary hypertension; Z85.47 Personal history of malignant neoplasm of testis; E78.5 Hyperlipidemia, unspecified; G47.33 Obstructive sleep apnea (adult) (pediatric); Z79.899 Other long term (current) drug therapy; J45.909 Unspecified asthma, uncomplicated; Z79.01 Long term (current) use of anticoagulants; Z86.718 Personal history of other venous thrombosis and embolism; R91.1 Solitary pulmonary nodule

== ENCOUNTER 2017-04-03 10:02 | Inpatient (IN) | payer OTHER ==
[2017-04-03] MEDS: IPRATROPIUM 0.5MG/ALBUTEROL 2.5MG INH SOL UD 3ML (DUONEB)(J7620) NEB ×3 (10:35→20:00)
[2017-04-03] MEDS: ALBUTEROL SULFATE 2.5 MG/0.5 ML INH NEB SOLN INH (10:35)
[2017-04-03 10:38] LABS: ABG BASE EXCESS 9.2 (-2.0-2.0); ABG HCO3 34.6 MEQ/L (22.0-26.0); ABG O2 SATURATION 96.4 % (95.0-99.0); ABG PARTIAL PRESSURE CO2 48.6 mmHg (35.0-45.0); ABG PARTIAL PRESSURE O2 78.4 mmHg (75.0-100.0); ABG TOTAL CO2 36.1 MEQ/L (23.0-31.0)
[2017-04-03 10:47] LABS: BASO % 0.5 % (0.0-1.0); EOS % 0.3 % (0.0-3.0); HEMATOCRIT 48.3 % (42.0-52.0); IMMATURE GRANULOCYTE # 0.1 10^3/uL (0-0); IMMATURE GRANULOCYTE % 1.5 % (0-0); LYMPH # 0.5 10^3/uL (1.5-4.5); MEAN CORPUSCULAR HEMOGLOBIN 30.7 pg (27.0-33.0); MEAN CORPUSCULAR HGB CONC 33.1 g/dl (32.0-36.5); MEAN CORPUSCULAR VOLUME 92.5 fl (80.0-96.0); MONO # 0.8 10^3/uL (0.0-0.8); MONO % 9.3 % (0.0-5.0); NEUTROPHILS # 7.1 10^3/uL (1.8-7.7); NEUTROPHILS % 82.4 % (36.0-66.0); PLATELET COUNT, AUTOMATED 143 10^3/uL (150-450); RED BLOOD COUNT 5.22 10^6/uL (4.30-6.10); RED CELL DISTRIBUTION WIDTH 13.2 % (11.5-14.5); WHITE BLOOD COUNT 8.6 10^3/uL (4.0-10.0)
[2017-04-03] MEDS: methylPREDNISolone INJ 125 MG/2 ML VIAL (J2930) IV ×2 (10:50→19:15)
[2017-04-03 10:57] LABS: INR 0.94; PROTHROMBIN TIME 12.6 SECONDS (12.4-14.5)
[2017-04-03 11:06] LABS: D-DIMER QUANT < 270.0 ng/ml (<500)
[2017-04-03 11:08] LABS: ALBUMIN 3.5 GM/DL (3.2-5.2); ALBUMIN/GLOBULIN RATIO 1.03 (1.00-1.93); ALKALINE PHOSPHATASE 68 U/L (45-117); ALT/SGPT 21 U/L (12-78); ANION GAP 3 MEQ/L (8-16); AST/SGOT 9 U/L (7-37); BILIRUBIN,DIRECT 0.1 MG/DL (0.0-0.2); BILIRUBIN,TOTAL 0.5 MG/DL (0.2-1.0); BLOOD UREA NITROGEN 16 MG/DL (7-18); CALCIUM LEVEL 8.3 MG/DL (8.8-10.2); CARBON DIOXIDE LEVEL 38 MEQ/L (21-32); CHLORIDE LEVEL 99 MEQ/L (98-107); CPK CREATINE PHOSPHOKINASE 52 U/L (39-308); CREATININE FOR GFR 1.14 MG/DL (0.70-1.30); GLOMERULAR FILTRATION RATE > 60.0 (>49); GLUCOSE, FASTING 143 MG/DL (70-100); POTASSIUM SERUM 3.2 MEQ/L (3.5-5.1); SODIUM LEVEL 140 MEQ/L (136-145); THYROXINE (T4) 6.8 UG/DL (4.5-12.0); TOTAL PROTEIN 6.9 GM/DL (6.4-8.2); TROPONIN I < 0.02 NG/ML (< 0.10)
[2017-04-03 11:10] LABS: LACTIC ACID SEPSIS PROTOCOL 2.1 MMOL/L (0.4-2.0)
[2017-04-03 11:14] LABS: CK-MB VALUE MASS 1.2 NG/ML (0.0-3.6); NT-PRO BNP 439 PG/ML (<125)
[2017-04-03 11:18] LABS: INFLUENZA A AMPLIFICATION POSITIVE (NEGATIVE); INFLUENZA B AMPLIFICATION NEGATIVE (NEGATIVE)
[2017-04-03] MEDS ORDERED: GLUCOSE 4 GM CHEW TABLET PO (12:15)
[2017-04-03] MEDS ORDERED: GLUCAGON FOR INJ 1 MG VIAL (J1610) SC (12:15)
[2017-04-03] MEDS ORDERED: ONDANSETRON 4MG/2ML VIAL (J2405) IV (12:15)
[2017-04-03] MEDS ORDERED: DEXTROSE 50% 50 ML SYRINGE IV (12:15)
[2017-04-03] MEDS ORDERED: NORCO, ANEXSIA 5/325MG TABLET (HYDROcodone/ACETAMINOPHEN) PO (12:15)
[2017-04-03] MEDS ORDERED: ACETAMINOPHEN TAB 650MG DOSE (2X325MG) PO (12:15)
[2017-04-03] MEDS: CARVedilol 12.5 MG TAB PO ×2 (12:36→20:57)
[2017-04-03] MEDS: ATORVASTATIN 20 MG TAB PO (12:36)
[2017-04-03] MEDS: OSELTAMIVIR PHOSPHATE 75 MG CAP (TAMIFLU) PO (12:36)
[2017-04-03 12:52] LABS: ESTIMATED AVERAGE GLUCOSE 137 MG/DL (60-110); HEMOGLOBIN A1c 6.4 %
[2017-04-03] MEDS: HumaLOG INSULIN (NovoLOG) PER UNIT SC ×3 (13:23→21:00)
[2017-04-03 13:28] LABS: BEDSIDE GLUCOSE 184 MG/DL (80-115)
[2017-04-03] MEDS ORDERED: IPRATROPIUM 0.5MG/ALBUTEROL 2.5MG INH SOL UD 3ML (DUONEB)(J7620) NEB (13:45)
[2017-04-03] MEDS: POTASSIUM CHLORIDE 10 MEQ SR TABLET PO (15:05)
[2017-04-03] MEDS: AZITHROMYCIN INJ 500 MG, VIAL MATE ADAPTER 1 EACH in D5W 250 ML IV (15:05)
[2017-04-03 16:57] LABS: CPK CREATINE PHOSPHOKINASE 54 U/L (39-308); TROPONIN I < 0.02 NG/ML (< 0.10)
[2017-04-03 16:58] LABS: MB/CK RELATIVE INDEX 1.85 (< OR =4)
[2017-04-03 17:57] LABS: BEDSIDE GLUCOSE 143 MG/DL (80-115)
[2017-04-03] MEDS: CEFTRIAXONE SOD 1 GM in APPROPRIATE DILUENT 1 EA IV (18:06)
[2017-04-03] MEDS: MAGNESIUM OXIDE 400 MG TAB (MAG-OX) PO (19:16)
[2017-04-03] MEDS: SPIRONOLACTONE 25 MG TAB PO (19:16)
[2017-04-03] MEDS: FUROSEMIDE 80 MG TAB PO (19:17)
[2017-04-03] MEDS: GABAPENTIN 400 MG CAP PO (20:56)
[2017-04-03] MEDS: APIXABAN 5 MG TAB (ELIQUIS) PO (20:56)
[2017-04-03] MEDS: SIMETHICONE 80 MG CHEW TAB PO (20:57)
[2017-04-03 20:58] LABS: BEDSIDE GLUCOSE 211 MG/DL (80-115)
[2017-04-03] MEDS: SYMBICORT 80/4.5MCG INHALER 6GM INH (21:30)
[2017-04-03 23:00] LABS: CPK CREATINE PHOSPHOKINASE 66 U/L (39-308); MB/CK RELATIVE INDEX 1.51 (< OR =4); TROPONIN I < 0.02 NG/ML (< 0.10)
[2017-04-04] MEDS: IPRATROPIUM 0.5MG/ALBUTEROL 2.5MG INH SOL UD 3ML (DUONEB)(J7620) NEB ×6 (01:05→20:00)
[2017-04-04] MEDS: methylPREDNISolone INJ 125 MG/2 ML VIAL (J2930) IV ×3 (03:41→18:57)
[2017-04-04 05:28] LABS: BASO % 0.2 % (0.0-1.0); HEMATOCRIT 45.4 % (42.0-52.0); HEMOGLOBIN 14.8 g/dl (14.0-18.0); IMMATURE GRANULOCYTE # 0.1 10^3/uL (0-0); IMMATURE GRANULOCYTE % 1.2 % (0-0); LYMPH # 0.4 10^3/uL (1.5-4.5); LYMPH % 7.3 % (24.0-44.0); MEAN CORPUSCULAR HEMOGLOBIN 30.8 pg (27.0-33.0); MEAN CORPUSCULAR HGB CONC 32.6 g/dl (32.0-36.5); MEAN CORPUSCULAR VOLUME 94.4 fl (80.0-96.0); MONO # 0.3 10^3/uL (0.0-0.8); MONO % 4.7 % (0.0-5.0); NEUTROPHILS % 86.6 % (36.0-66.0); PLATELET COUNT, AUTOMATED 124 10^3/uL (150-450); RED BLOOD COUNT 4.81 10^6/uL (4.30-6.10); RED CELL DISTRIBUTION WIDTH 13.1 % (11.5-14.5); WHITE BLOOD COUNT 5.8 10^3/uL (4.0-10.0)
[2017-04-04 05:54] LABS: ALBUMIN 3.1 GM/DL (3.2-5.2); ALBUMIN/GLOBULIN RATIO 0.91 (1.00-1.93); ALKALINE PHOSPHATASE 60 U/L (45-117); ALT/SGPT 18 U/L (12-78); ANION GAP 2 MEQ/L (8-16); AST/SGOT 9 U/L (7-37); BILIRUBIN,TOTAL 0.4 MG/DL (0.2-1.0); BLOOD UREA NITROGEN 21 MG/DL (7-18); CALCIUM LEVEL 8.3 MG/DL (8.8-10.2); CARBON DIOXIDE LEVEL 40 MEQ/L (21-32); CHLORIDE LEVEL 98 MEQ/L (98-107); CREATININE FOR GFR 1.28 MG/DL (0.70-1.30); GLOMERULAR FILTRATION RATE > 60.0 (>49); GLUCOSE, FASTING 143 MG/DL (70-100); MAGNESIUM LEVEL 2.3 MG/DL (1.8-2.4); POTASSIUM SERUM 4.1 MEQ/L (3.5-5.1); SODIUM LEVEL 140 MEQ/L (136-145); TOTAL PROTEIN 6.5 GM/DL (6.4-8.2)
[2017-04-04] MEDS: SYMBICORT 80/4.5MCG INHALER 6GM INH ×2 (07:52→21:50)
[2017-04-04] MEDS: TIOTROPIUM INHALER/CAPSULE (SPIRIVA) INH (07:52)
[2017-04-04] MEDS ORDERED: NS 1,000 ML IV (08:00)
[2017-04-04] MEDS: SIMETHICONE 80 MG CHEW TAB PO ×2 (09:08→21:17)
[2017-04-04] MEDS: ALLOPURINOL 100 MG TAB PO (09:08)
[2017-04-04] MEDS: VITAMIN D 1,000 INTERNATIONAL UNITS TABLET PO (09:08)
[2017-04-04] MEDS: HumaLOG INSULIN (NovoLOG) PER UNIT SC ×4 (09:08→21:00)
[2017-04-04] MEDS: ATORVASTATIN 20 MG TAB PO (09:09)
[2017-04-04] MEDS: SPIRONOLACTONE 25 MG TAB PO ×2 (09:09→17:52)
[2017-04-04] MEDS: APIXABAN 5 MG TAB (ELIQUIS) PO ×2 (09:09→21:18)
[2017-04-04] MEDS: CARVedilol 12.5 MG TAB PO ×2 (09:09→21:19)
[2017-04-04] MEDS: FUROSEMIDE 80 MG TAB PO ×2 (09:09→17:52)
[2017-04-04] MEDS: MAGNESIUM OXIDE 400 MG TAB (MAG-OX) PO ×2 (09:09→21:18)
[2017-04-04 12:00] LABS: BEDSIDE GLUCOSE 126 MG/DL (80-115)
[2017-04-04] MEDS: OSELTAMIVIR PHOSPHATE 75 MG CAP (TAMIFLU) PO ×2 (14:17→21:18)
[2017-04-04] MEDS: AZITHROMYCIN INJ 500 MG, VIAL MATE ADAPTER 1 EACH in D5W 250 ML IV (14:18)
[2017-04-04 16:52] LABS: BEDSIDE GLUCOSE 137 MG/DL (80-115)
[2017-04-04] MEDS: CEFTRIAXONE SOD 1 GM in APPROPRIATE DILUENT 1 EA IV (17:53)
[2017-04-04] MEDS: GABAPENTIN 400 MG CAP PO (21:18)
[2017-04-04 21:25] LABS: BEDSIDE GLUCOSE 175 MG/DL (80-115)
[2017-04-05] MEDS: methylPREDNISolone INJ 125 MG/2 ML VIAL (J2930) IV ×3 (02:23→18:39)
[2017-04-05] MEDS: IPRATROPIUM 0.5MG/ALBUTEROL 2.5MG INH SOL UD 3ML (DUONEB)(J7620) NEB ×6 (03:05→19:26)
[2017-04-05 06:27] LABS: BASO % 0.1 % (0.0-1.0); HEMATOCRIT 44.1 % (42.0-52.0); HEMOGLOBIN 14.5 g/dl (14.0-18.0); IMMATURE GRANULOCYTE # 0.1 10^3/uL (0-0); IMMATURE GRANULOCYTE % 0.8 % (0-0); LYMPH # 0.5 10^3/uL (1.5-4.5); LYMPH % 5.3 % (24.0-44.0); MEAN CORPUSCULAR HEMOGLOBIN 30.6 pg (27.0-33.0); MEAN CORPUSCULAR HGB CONC 32.9 g/dl (32.0-36.5); MONO # 0.2 10^3/uL (0.0-0.8); MONO % 2.4 % (0.0-5.0); NEUTROPHILS # 9.1 10^3/uL (1.8-7.7); NEUTROPHILS % 91.4 % (36.0-66.0); PLATELET COUNT, AUTOMATED 145 10^3/uL (150-450); RED BLOOD COUNT 4.74 10^6/uL (4.30-6.10); RED CELL DISTRIBUTION WIDTH 12.9 % (11.5-14.5)
[2017-04-05 06:48] LABS: ALBUMIN 2.9 GM/DL (3.2-5.2); ALBUMIN/GLOBULIN RATIO 0.91 (1.00-1.93); ALKALINE PHOSPHATASE 51 U/L (45-117); ALT/SGPT 19 U/L (12-78); ANION GAP 3 MEQ/L (8-16); AST/SGOT 9 U/L (7-37); BILIRUBIN,TOTAL 0.3 MG/DL (0.2-1.0); BLOOD UREA NITROGEN 30 MG/DL (7-18); CALCIUM LEVEL 8.2 MG/DL (8.8-10.2); CARBON DIOXIDE LEVEL 41 MEQ/L (21-32); CHLORIDE LEVEL 97 MEQ/L (98-107); CREATININE FOR GFR 1.19 MG/DL (0.70-1.30); GLOMERULAR FILTRATION RATE > 60.0 (>49); GLUCOSE, FASTING 149 MG/DL (70-100); MAGNESIUM LEVEL 2.3 MG/DL (1.8-2.4); SODIUM LEVEL 141 MEQ/L (136-145); TOTAL PROTEIN 6.1 GM/DL (6.4-8.2)
[2017-04-05] MEDS: HumaLOG INSULIN (NovoLOG) PER UNIT SC ×4 (07:50→21:00)
[2017-04-05] MEDS: SYMBICORT 80/4.5MCG INHALER 6GM INH ×2 (09:15→19:26)
[2017-04-05] MEDS: TIOTROPIUM INHALER/CAPSULE (SPIRIVA) INH (09:15)
[2017-04-05] MEDS: SIMETHICONE 80 MG CHEW TAB PO ×2 (09:49→21:37)
[2017-04-05] MEDS: CARVedilol 12.5 MG TAB PO ×2 (09:49→21:38)
[2017-04-05] MEDS: MAGNESIUM OXIDE 400 MG TAB (MAG-OX) PO ×2 (09:49→21:37)
[2017-04-05] MEDS: VITAMIN D 1,000 INTERNATIONAL UNITS TABLET PO (09:49)
[2017-04-05] MEDS: ATORVASTATIN 20 MG TAB PO (09:50)
[2017-04-05] MEDS: APIXABAN 5 MG TAB (ELIQUIS) PO ×2 (09:50→21:38)
[2017-04-05] MEDS: FUROSEMIDE 80 MG TAB PO ×2 (09:50→17:30)
[2017-04-05] MEDS: SPIRONOLACTONE 25 MG TAB PO ×2 (09:50→17:30)
[2017-04-05] MEDS: OSELTAMIVIR PHOSPHATE 75 MG CAP (TAMIFLU) PO ×2 (09:50→21:37)
[2017-04-05] MEDS: ALLOPURINOL 100 MG TAB PO (09:50)
[2017-04-05 12:17] LABS: BEDSIDE GLUCOSE 191 MG/DL (80-115)
[2017-04-05 16:49] LABS: BEDSIDE GLUCOSE 131 MG/DL (80-115)
[2017-04-05] MEDS: LevoFLOXacin 500 MG TABLET PO (17:30)
[2017-04-05] MEDS: AZITHROMYCIN 250 MG TAB PO (17:30)
[2017-04-05 21:14] LABS: BEDSIDE GLUCOSE 190 MG/DL (80-115)
[2017-04-05] MEDS: GABAPENTIN 400 MG CAP PO (21:37)
[2017-04-06] MEDS: IPRATROPIUM 0.5MG/ALBUTEROL 2.5MG INH SOL UD 3ML (DUONEB)(J7620) NEB ×5 (00:57→20:00)
[2017-04-06] MEDS: methylPREDNISolone INJ 125 MG/2 ML VIAL (J2930) IV (02:57)
[2017-04-06] MEDS: LevoFLOXacin 500 MG TABLET PO (05:21)
[2017-04-06 05:45] LABS: BASO % 0.1 % (0.0-1.0); HEMATOCRIT 48.5 % (42.0-52.0); HEMOGLOBIN 15.8 g/dl (14.0-18.0); IMMATURE GRANULOCYTE # 0.1 10^3/uL (0-0); IMMATURE GRANULOCYTE % 0.7 % (0-0); LYMPH # 0.6 10^3/uL (1.5-4.5); MEAN CORPUSCULAR HEMOGLOBIN 30.3 pg (27.0-33.0); MEAN CORPUSCULAR HGB CONC 32.6 g/dl (32.0-36.5); MEAN CORPUSCULAR VOLUME 93.1 fl (80.0-96.0); MONO # 0.3 10^3/uL (0.0-0.8); MONO % 2.4 % (0.0-5.0); NEUTROPHILS # 11.6 10^3/uL (1.8-7.7); NEUTROPHILS % 91.8 % (36.0-66.0); PLATELET COUNT, AUTOMATED 170 10^3/uL (150-450); RED BLOOD COUNT 5.21 10^6/uL (4.30-6.10); RED CELL DISTRIBUTION WIDTH 12.9 % (11.5-14.5); WHITE BLOOD COUNT 12.6 10^3/uL (4.0-10.0)
[2017-04-06 06:03] LABS: ALBUMIN 3.1 GM/DL (3.2-5.2); ALBUMIN/GLOBULIN RATIO 0.86 (1.00-1.93); ALKALINE PHOSPHATASE 58 U/L (45-117); ALT/SGPT 26 U/L (12-78); ANION GAP 4 MEQ/L (8-16); AST/SGOT 10 U/L (7-37); BILIRUBIN,TOTAL 0.4 MG/DL (0.2-1.0); BLOOD UREA NITROGEN 37 MG/DL (7-18); CALCIUM LEVEL 8.6 MG/DL (8.8-10.2); CARBON DIOXIDE LEVEL 42 MEQ/L (21-32); CHLORIDE LEVEL 94 MEQ/L (98-107); CREATININE FOR GFR 1.25 MG/DL (0.70-1.30); GLOMERULAR FILTRATION RATE > 60.0 (>49); GLUCOSE, FASTING 167 MG/DL (70-100); MAGNESIUM LEVEL 2.5 MG/DL (1.8-2.4); POTASSIUM SERUM 3.8 MEQ/L (3.5-5.1); SODIUM LEVEL 140 MEQ/L (136-145); TOTAL PROTEIN 6.7 GM/DL (6.4-8.2)
[2017-04-06] MEDS: HumaLOG INSULIN (NovoLOG) PER UNIT SC ×4 (08:03→21:00)
[2017-04-06] MEDS: predniSONE 20 MG TAB PO (08:04)
[2017-04-06] MEDS: ALLOPURINOL 100 MG TAB PO (08:04)
[2017-04-06] MEDS: SPIRONOLACTONE 25 MG TAB PO ×2 (08:04→16:58)
[2017-04-06] MEDS: MAGNESIUM OXIDE 400 MG TAB (MAG-OX) PO ×2 (08:04→21:29)
[2017-04-06] MEDS: OSELTAMIVIR PHOSPHATE 75 MG CAP (TAMIFLU) PO ×2 (08:04→21:29)
[2017-04-06] MEDS: APIXABAN 5 MG TAB (ELIQUIS) PO ×2 (08:04→21:29)
[2017-04-06] MEDS: FUROSEMIDE 80 MG TAB PO ×2 (08:05→16:58)
[2017-04-06] MEDS: SIMETHICONE 80 MG CHEW TAB PO ×2 (08:05→21:29)
[2017-04-06] MEDS: ATORVASTATIN 20 MG TAB PO (08:05)
[2017-04-06] MEDS: CARVedilol 12.5 MG TAB PO ×2 (08:05→21:30)
[2017-04-06] MEDS: VITAMIN D 1,000 INTERNATIONAL UNITS TABLET PO (08:05)
[2017-04-06] MEDS: SYMBICORT 80/4.5MCG INHALER 6GM INH ×2 (09:12→20:35)
[2017-04-06] MEDS: TIOTROPIUM INHALER/CAPSULE (SPIRIVA) INH (09:13)
[2017-04-06 17:16] LABS: BEDSIDE GLUCOSE 184 MG/DL (80-115)
[2017-04-06 17:16] LABS: BEDSIDE GLUCOSE 165 MG/DL (80-115)
[2017-04-06 20:56] LABS: BEDSIDE GLUCOSE 167 MG/DL (80-115)
[2017-04-06] MEDS: GABAPENTIN 400 MG CAP PO (21:29)
[2017-04-06] MEDS: FLUTICASONE PROP 0.05% NASAL SPRAY 16 GM (FLONASE) (21:30)
[2017-04-07] MEDS: IPRATROPIUM 0.5MG/ALBUTEROL 2.5MG INH SOL UD 3ML (DUONEB)(J7620) NEB ×3 (00:33→08:00)
[2017-04-07] MEDS: LevoFLOXacin 500 MG TABLET PO (05:19)
[2017-04-07 06:48] LABS: BASO % 0.1 % (0.0-1.0); HEMATOCRIT 47.2 % (42.0-52.0); HEMOGLOBIN 15.1 g/dl (14.0-18.0); IMMATURE GRANULOCYTE % 0.7 % (0-3.0); LYMPH # 1.4 10^3/uL (1.5-4.5); LYMPH % 14.8 % (24.0-44.0); MEAN CORPUSCULAR HEMOGLOBIN 29.6 pg (27.0-33.0); MEAN CORPUSCULAR VOLUME 92.5 fl (80.0-96.0); MONO # 0.7 10^3/uL (0.0-0.8); MONO % 7.3 % (0.0-5.0); NEUTROPHILS # 7.3 10^3/uL (1.8-7.7); NEUTROPHILS % 77.1 % (36.0-66.0); PLATELET COUNT, AUTOMATED 162 10^3/uL (150-450); RED CELL DISTRIBUTION WIDTH 12.9 % (11.5-14.5); WHITE BLOOD COUNT 9.4 10^3/uL (4.0-10.0)
[2017-04-07 07:12] LABS: ALBUMIN 2.9 GM/DL (3.2-5.2); ALBUMIN/GLOBULIN RATIO 0.94 (1.00-1.93); ALKALINE PHOSPHATASE 48 U/L (45-117); ALT/SGPT 23 U/L (12-78); ANION GAP 4 MEQ/L (8-16); AST/SGOT 9 U/L (7-37); BILIRUBIN,TOTAL 0.3 MG/DL (0.2-1.0); BLOOD UREA NITROGEN 36 MG/DL (7-18); CALCIUM LEVEL 8.4 MG/DL (8.8-10.2); CARBON DIOXIDE LEVEL 44 MEQ/L (21-32); CHLORIDE LEVEL 97 MEQ/L (98-107); CREATININE FOR GFR 1.23 MG/DL (0.70-1.30); GLOMERULAR FILTRATION RATE > 60.0 (>49); GLUCOSE, FASTING 114 MG/DL (70-100); MAGNESIUM LEVEL 2.5 MG/DL (1.8-2.4); POTASSIUM SERUM 3.7 MEQ/L (3.5-5.1); SODIUM LEVEL 145 MEQ/L (136-145)
[2017-04-07] MEDS: TIOTROPIUM INHALER/CAPSULE (SPIRIVA) INH (07:18)
[2017-04-07] MEDS: SYMBICORT 80/4.5MCG INHALER 6GM INH (07:18)
[2017-04-07] MEDS: HumaLOG INSULIN (NovoLOG) PER UNIT SC (07:38)
[2017-04-07] MEDS: SIMETHICONE 80 MG CHEW TAB PO (08:36)
[2017-04-07] MEDS: VITAMIN D 1,000 INTERNATIONAL UNITS TABLET PO (08:36)
[2017-04-07] MEDS: SPIRONOLACTONE 25 MG TAB PO (08:36)
[2017-04-07] MEDS: FLUTICASONE PROP 0.05% NASAL SPRAY 16 GM (FLONASE) (08:36)
[2017-04-07] MEDS: ATORVASTATIN 20 MG TAB PO (08:36)
[2017-04-07] MEDS: ALLOPURINOL 100 MG TAB PO (08:37)
[2017-04-07] MEDS: FUROSEMIDE 80 MG TAB PO (08:37)
[2017-04-07] MEDS: OSELTAMIVIR PHOSPHATE 75 MG CAP (TAMIFLU) PO (08:38)
[2017-04-07] MEDS: CARVedilol 12.5 MG TAB PO (08:38)
[2017-04-07] MEDS: predniSONE 20 MG TAB PO (08:38)
[2017-04-07] MEDS: APIXABAN 5 MG TAB (ELIQUIS) PO (08:38)
[2017-04-07] MEDS: MAGNESIUM OXIDE 400 MG TAB (MAG-OX) PO (09:00)
[2017-04-07] MEDS: POTASSIUM CHLORIDE 10 MEQ SR TABLET PO (10:13)
== END 2017-04-07 10:47 | disposition home or self-care (01) | DRG 190 ==
LOC: M PCU 04-04 00:10 → M ED 10:02 → M MSPAV 04-04 15:44 → M ED INP 12:03
DX: J44.1 Chronic obstructive pulmonary disease with (acute) exacerbation (principal); J11.00 Influenza due to unidentified influenza virus with unspecified type of pneumonia; E87.2 Acidosis; I10 Essential (primary) hypertension; I48.91 Unspecified atrial fibrillation; Z79.01 Long term (current) use of anticoagulants; I25.10 Atherosclerotic heart disease of native coronary artery without angina pectoris; I50.9 Heart failure, unspecified; I27.20 Pulmonary hypertension, unspecified; Z86.711 Personal history of pulmonary embolism; I27.81 Cor pulmonale (chronic); R73.03 Prediabetes; Z85.47 Personal history of malignant neoplasm of testis; Z79.52 Long term (current) use of systemic steroids; Z79.899 Other long term (current) drug therapy

== ENCOUNTER 2017-08-31 18:26 | Inpatient (IN) | payer OTHER ==
[2017-08-31 19:14] LABS: BASO % 0.3 % (0.0-1.0); HEMOGLOBIN 15.8 g/dl (13.5-17.5); IMMATURE GRANULOCYTE % 0.3 % (0-3.0); LYMPH # 0.7 10^3/uL (1.5-4.5); LYMPH % 7.8 % (24.0-44.0); MEAN CORPUSCULAR HEMOGLOBIN 31.3 pg (27.0-33.0); MEAN CORPUSCULAR HGB CONC 33.6 g/dl (32.0-36.5); MEAN CORPUSCULAR VOLUME 93.3 fl (80.0-96.0); MONO # 0.7 10^3/uL (0.0-0.8); MONO % 7.4 % (0.0-5.0); NEUTROPHILS # 7.7 10^3/uL (1.8-7.7); NEUTROPHILS % 84.2 % (36.0-66.0); PLATELET COUNT, AUTOMATED 185 10^3/uL (150-450); RED BLOOD COUNT 5.04 10^6/uL (4.30-6.10); RED CELL DISTRIBUTION WIDTH 11.9 % (11.5-14.5); WHITE BLOOD COUNT 9.1 10^3/uL (4.0-10.0)
[2017-08-31 19:29] LABS: INR 1.03; PARTIAL THROMBOPLASTIN TIME 25.8 SECONDS (25.4-37.6); PROTHROMBIN TIME 13.6 SECONDS (12.1-14.4)
[2017-08-31 19:39] LABS: ALBUMIN 3.6 GM/DL (3.2-5.2); ALBUMIN/GLOBULIN RATIO 0.92 (1.00-1.93); ALKALINE PHOSPHATASE 96 U/L (45-117); ALT/SGPT 25 U/L (12-78); ANION GAP 7 MEQ/L (8-16); AST/SGOT 14 U/L (7-37); BILIRUBIN,DIRECT 0.1 MG/DL (0.0-0.2); BILIRUBIN,TOTAL 0.5 MG/DL (0.2-1.0); BLOOD UREA NITROGEN 17 MG/DL (7-18); CALCIUM LEVEL 8.6 MG/DL (8.8-10.2); CARBON DIOXIDE LEVEL 33 MEQ/L (21-32); CHLORIDE LEVEL 102 MEQ/L (98-107); CPK CREATINE PHOSPHOKINASE 46 U/L (39-308); CREATININE FOR GFR 1.27 MG/DL (0.70-1.30); FREE T4 0.85 NG/DL (0.76-1.46); GLOMERULAR FILTRATION RATE > 60.0 (>49); GLUCOSE, FASTING 99 MG/DL (70-100); LIPASE 105 U/L (73-393); SODIUM LEVEL 142 MEQ/L (136-145); TOTAL PROTEIN 7.5 GM/DL (6.4-8.2); TROPONIN I < 0.02 NG/ML (< 0.10)
[2017-08-31 19:45] LABS: CK-MB VALUE MASS < 1.0 NG/ML (<3.6); MB/CK RELATIVE INDEX 2.17 (< OR =4); NT-PRO BNP 663 PG/ML (<125)
[2017-08-31] MEDS: methylPREDNISolone INJ 125 MG/2 ML VIAL (J2930) IV (19:57)
[2017-08-31] MEDS: IPRATROPIUM 0.5MG/ALBUTEROL 2.5MG INH SOL UD 3ML (DUONEB)(J7620) NEB ×3 (20:08→20:09)
[2017-08-31 20:11] LABS: ABG BASE EXCESS 1.6 (-2.0-2.0); ABG HCO3 28.1 MEQ/L (22.0-26.0); ABG O2 SATURATION 98.4 % (95.0-99.0); ABG PARTIAL PRESSURE CO2 50.5 mmHg (35.0-45.0); ABG PARTIAL PRESSURE O2 113.4 mmHg (75.0-100.0); ABG STANDARD HCO3 25.9 MEQ/L (22.0-26.0); ABG TOTAL CO2 29.6 MEQ/L (23.0-31.0); ABG pH (ARTERIAL) 7.363 UNITS (7.350-7.450)
[2017-08-31] MEDS: SYMBICORT 160/4.5MCG INHALER 6GM INH (21:00)
[2017-08-31] MEDS: ACETAMINOPHEN TAB 650MG DOSE (2X325MG) PO (21:22)
[2017-08-31] MEDS: AZITHROMYCIN INJ 500 MG, VIAL MATE ADAPTER 1 EACH in D5W 250 ML IV (22:10)
[2017-09-01] MEDS: CARVedilol 12.5 MG TAB PO ×3 (00:41→20:42)
[2017-09-01] MEDS: APIXABAN 5 MG TAB (ELIQUIS) PO ×3 (00:41→20:43)
[2017-09-01] MEDS: FUROSEMIDE 80 MG TAB PO ×2 (00:42→09:36)
[2017-09-01] MEDS: SPIRONOLACTONE 25 MG TAB PO ×2 (00:42→09:36)
[2017-09-01] MEDS: MAGNESIUM OXIDE 400 MG TAB (MAG-OX) PO ×3 (00:42→20:43)
[2017-09-01] MEDS: IPRATROPIUM 0.5MG/ALBUTEROL 2.5MG INH SOL UD 3ML (DUONEB)(J7620) NEB ×8 (01:01→23:17)
[2017-09-01] MEDS: ACETAMINOPHEN TAB 650MG DOSE (2X325MG) PO ×3 (03:03→20:45)
[2017-09-01] MEDS: SYMBICORT 160/4.5MCG INHALER 6GM INH ×2 (07:30→20:18)
[2017-09-01] MEDS: TIOTROPIUM INHALER/CAPSULE (SPIRIVA) INH (07:30)
[2017-09-01 09:27] LABS: HEMATOCRIT 42.2 % (42.0-52.0); HEMOGLOBIN 14.4 g/dl (13.5-17.5); MEAN CORPUSCULAR HEMOGLOBIN 31.4 pg (27.0-33.0); MEAN CORPUSCULAR HGB CONC 34.1 g/dl (32.0-36.5); MEAN CORPUSCULAR VOLUME 92.1 fl (80.0-96.0); PLATELET COUNT, AUTOMATED 126 10^3/uL (150-450); RED BLOOD COUNT 4.58 10^6/uL (4.30-6.10); RED CELL DISTRIBUTION WIDTH 11.9 % (11.5-14.5); WHITE BLOOD COUNT 8.2 10^3/uL (4.0-10.0)
[2017-09-01] MEDS: predniSONE 20 MG TAB PO (09:34)
[2017-09-01] MEDS: ALLOPURINOL 100 MG TAB PO (09:37)
[2017-09-01] MEDS: ATORVASTATIN 20 MG TAB PO (09:38)
[2017-09-01 09:46] LABS: ANION GAP 7 MEQ/L (8-16); BLOOD UREA NITROGEN 21 MG/DL (7-18); CALCIUM LEVEL 8.3 MG/DL (8.8-10.2); CARBON DIOXIDE LEVEL 34 MEQ/L (21-32); CHLORIDE LEVEL 99 MEQ/L (98-107); CREATININE FOR GFR 1.32 MG/DL (0.70-1.30); GLOMERULAR FILTRATION RATE 58.5 (>49); GLUCOSE, FASTING 181 MG/DL (70-100); POTASSIUM SERUM 4.3 MEQ/L (3.5-5.1); SODIUM LEVEL 140 MEQ/L (136-145)
[2017-09-01] MEDS: NS 1,000 ML IV (12:55)
[2017-09-01] MEDS: CEPACOL LOZENGE PO (16:11)
[2017-09-01 17:24] LABS: ESTIMATED AVERAGE GLUCOSE 134 MG/DL (60-110); HEMOGLOBIN A1c 6.3 %
[2017-09-01] MEDS: AZITHROMYCIN INJ 500 MG, VIAL MATE ADAPTER 1 EACH in D5W 250 ML IV (20:42)
[2017-09-01] MEDS: diphenhydrAMINE 25 MG CAP PO (22:05)
[2017-09-02] MEDS: IPRATROPIUM 0.5MG/ALBUTEROL 2.5MG INH SOL UD 3ML (DUONEB)(J7620) NEB ×5 (03:28→18:49)
[2017-09-02 06:46] LABS: HEMATOCRIT 42.2 % (42.0-52.0); MEAN CORPUSCULAR HEMOGLOBIN 31.5 pg (27.0-33.0); MEAN CORPUSCULAR HGB CONC 33.2 g/dl (32.0-36.5); MEAN CORPUSCULAR VOLUME 94.8 fl (80.0-96.0); PLATELET COUNT, AUTOMATED 116 10^3/uL (150-450); RED BLOOD COUNT 4.45 10^6/uL (4.30-6.10); RED CELL DISTRIBUTION WIDTH 11.8 % (11.5-14.5); WHITE BLOOD COUNT 7.5 10^3/uL (4.0-10.0)
[2017-09-02 06:58] LABS: ANION GAP 6 MEQ/L (8-16); BLOOD UREA NITROGEN 23 MG/DL (7-18); CALCIUM LEVEL 8.5 MG/DL (8.8-10.2); CARBON DIOXIDE LEVEL 36 MEQ/L (21-32); CHLORIDE LEVEL 98 MEQ/L (98-107); CREATININE FOR GFR 1.19 MG/DL (0.70-1.30); GLOMERULAR FILTRATION RATE > 60.0 (>49); GLUCOSE, FASTING 107 MG/DL (70-100); SODIUM LEVEL 140 MEQ/L (136-145)
[2017-09-02] MEDS: SYMBICORT 160/4.5MCG INHALER 6GM INH ×2 (07:35→18:49)
[2017-09-02] MEDS: TIOTROPIUM INHALER/CAPSULE (SPIRIVA) INH (07:35)
[2017-09-02] MEDS ORDERED: E-Z-PAQUE 96% w/w SUSP 176GM BTL As Ordered (08:54)
[2017-09-02] MEDS ORDERED: E-Z-GAS II EFFERVESCENT PACKET (SODIUM BICARB./CITRIC ACID/SIMETHICONE) As Ordered (08:54)
[2017-09-02] MEDS ORDERED: E-Z-HD 98% w/w 340GM SUSP BTL As Ordered (08:55)
[2017-09-02] MEDS: DOCUSATE SODIUM 100 MG CAP PO ×2 (09:00→21:05)
[2017-09-02] MEDS ORDERED: ISOVUE-370 76% 100ML VIAL (Q9967) As Ordered (09:12)
[2017-09-02] MEDS: predniSONE 20 MG TAB PO (10:52)
[2017-09-02] MEDS: ALLOPURINOL 100 MG TAB PO (10:52)
[2017-09-02] MEDS: ATORVASTATIN 20 MG TAB PO (10:53)
[2017-09-02] MEDS: SPIRONOLACTONE 25 MG TAB PO ×2 (10:53→21:05)
[2017-09-02] MEDS: APIXABAN 5 MG TAB (ELIQUIS) PO ×2 (10:53→21:05)
[2017-09-02] MEDS: CARVedilol 12.5 MG TAB PO ×2 (10:53→21:05)
[2017-09-02] MEDS: MAGNESIUM OXIDE 400 MG TAB (MAG-OX) PO ×2 (10:53→21:05)
[2017-09-02] MEDS: FUROSEMIDE 80 MG TAB PO ×2 (10:54→21:04)
[2017-09-02] MEDS: MIRALAX *UNIT DOSE* 17GM PACKET PO (15:25)
[2017-09-02] MEDS: METOCLOPRAMIDE 10 MG TAB PO ×2 (18:07→21:05)
[2017-09-02] MEDS: methylPREDNISolone INJ 125 MG/2 ML VIAL (J2930) IV (18:36)
[2017-09-02] MEDS: CEPACOL LOZENGE PO (21:04)
[2017-09-02] MEDS: ACETAMINOPHEN TAB 650MG DOSE (2X325MG) PO (21:06)
[2017-09-02] MEDS: AZITHROMYCIN INJ 500 MG, VIAL MATE ADAPTER 1 EACH in D5W 250 ML IV (21:06)
[2017-09-03] MEDS: diphenhydrAMINE 25 MG CAP PO (00:10)
[2017-09-03] MEDS: IPRATROPIUM 0.5MG/ALBUTEROL 2.5MG INH SOL UD 3ML (DUONEB)(J7620) NEB ×5 (00:11→21:35)
[2017-09-03] MEDS: ACETAMINOPHEN TAB 650MG DOSE (2X325MG) PO ×2 (06:00→22:16)
[2017-09-03] MEDS: CEPACOL LOZENGE PO ×3 (06:00→22:05)
[2017-09-03] MEDS: methylPREDNISolone INJ 125 MG/2 ML VIAL (J2930) IV ×2 (06:21→17:22)
[2017-09-03 06:34] LABS: HEMATOCRIT 44.3 % (42.0-52.0); HEMOGLOBIN 14.2 g/dl (13.5-17.5); MEAN CORPUSCULAR HEMOGLOBIN 30.6 pg (27.0-33.0); MEAN CORPUSCULAR HGB CONC 32.1 g/dl (32.0-36.5); MEAN CORPUSCULAR VOLUME 95.5 fl (80.0-96.0); PLATELET COUNT, AUTOMATED 153 10^3/uL (150-450); RED BLOOD COUNT 4.64 10^6/uL (4.30-6.10); RED CELL DISTRIBUTION WIDTH 11.8 % (11.5-14.5); WHITE BLOOD COUNT 5.4 10^3/uL (4.0-10.0)
[2017-09-03 06:45] LABS: ANION GAP 2 MEQ/L (8-16); BLOOD UREA NITROGEN 25 MG/DL (7-18); CALCIUM LEVEL 8.5 MG/DL (8.8-10.2); CARBON DIOXIDE LEVEL 39 MEQ/L (21-32); CHLORIDE LEVEL 100 MEQ/L (98-107); CREATININE FOR GFR 1.09 MG/DL (0.70-1.30); GLOMERULAR FILTRATION RATE > 60.0 (>49); GLUCOSE, FASTING 151 MG/DL (70-100); POTASSIUM SERUM 4.5 MEQ/L (3.5-5.1); SODIUM LEVEL 141 MEQ/L (136-145)
[2017-09-03] MEDS: ALLOPURINOL 100 MG TAB PO (08:31)
[2017-09-03] MEDS: ATORVASTATIN 20 MG TAB PO (08:31)
[2017-09-03] MEDS: MIRALAX *UNIT DOSE* 17GM PACKET PO (08:31)
[2017-09-03] MEDS: METOCLOPRAMIDE 10 MG TAB PO ×4 (08:31→22:08)
[2017-09-03] MEDS: FUROSEMIDE 80 MG TAB PO ×2 (08:32→22:09)
[2017-09-03] MEDS: MAGNESIUM OXIDE 400 MG TAB (MAG-OX) PO ×2 (08:32→22:09)
[2017-09-03] MEDS: DOCUSATE SODIUM 100 MG CAP PO ×2 (08:32→22:08)
[2017-09-03] MEDS: CARVedilol 12.5 MG TAB PO ×2 (08:32→22:08)
[2017-09-03] MEDS: SPIRONOLACTONE 25 MG TAB PO ×2 (08:32→22:09)
[2017-09-03] MEDS: APIXABAN 5 MG TAB (ELIQUIS) PO ×2 (08:32→22:10)
[2017-09-03] MEDS: SYMBICORT 160/4.5MCG INHALER 6GM INH ×2 (09:00→21:33)
[2017-09-03] MEDS: TIOTROPIUM INHALER/CAPSULE (SPIRIVA) INH (09:00)
[2017-09-03] MEDS: OMEPRAZOLE 20 MG CAP PO (11:14)
[2017-09-03] MEDS: diphenhydrAMINE 50 MG CAP PO (22:05)
[2017-09-03] MEDS: AZITHROMYCIN INJ 500 MG, VIAL MATE ADAPTER 1 EACH in D5W 250 ML IV (22:10)
[2017-09-04] MEDS: IPRATROPIUM 0.5MG/ALBUTEROL 2.5MG INH SOL UD 3ML (DUONEB)(J7620) NEB ×7 (00:53→20:00)
[2017-09-04] MEDS: methylPREDNISolone INJ 125 MG/2 ML VIAL (J2930) IV ×2 (05:02→17:19)
[2017-09-04 05:47] LABS: HEMATOCRIT 42.3 % (42.0-52.0); HEMOGLOBIN 13.7 g/dl (13.5-17.5); MEAN CORPUSCULAR HEMOGLOBIN 30.6 pg (27.0-33.0); MEAN CORPUSCULAR HGB CONC 32.4 g/dl (32.0-36.5); MEAN CORPUSCULAR VOLUME 94.6 fl (80.0-96.0); PLATELET COUNT, AUTOMATED 145 10^3/uL (150-450); RED BLOOD COUNT 4.47 10^6/uL (4.30-6.10); RED CELL DISTRIBUTION WIDTH 11.6 % (11.5-14.5); WHITE BLOOD COUNT 9.1 10^3/uL (4.0-10.0)
[2017-09-04 06:07] LABS: ANION GAP 1 MEQ/L (8-16); BLOOD UREA NITROGEN 25 MG/DL (7-18); CARBON DIOXIDE LEVEL 42 MEQ/L (21-32); CHLORIDE LEVEL 98 MEQ/L (98-107); CREATININE FOR GFR 1.05 MG/DL (0.70-1.30); GLOMERULAR FILTRATION RATE > 60.0 (>49); GLUCOSE, FASTING 118 MG/DL (70-100); POTASSIUM SERUM 4.1 MEQ/L (3.5-5.1); SODIUM LEVEL 141 MEQ/L (136-145)
[2017-09-04] MEDS: SYMBICORT 160/4.5MCG INHALER 6GM INH ×2 (07:55→20:33)
[2017-09-04] MEDS: TIOTROPIUM INHALER/CAPSULE (SPIRIVA) INH (07:56)
[2017-09-04] MEDS: MIRALAX *UNIT DOSE* 17GM PACKET PO (08:02)
[2017-09-04] MEDS: ATORVASTATIN 20 MG TAB PO (08:02)
[2017-09-04] MEDS: OMEPRAZOLE 20 MG CAP PO (08:02)
[2017-09-04] MEDS: MAGNESIUM OXIDE 400 MG TAB (MAG-OX) PO ×2 (08:03→21:42)
[2017-09-04] MEDS: DOCUSATE SODIUM 100 MG CAP PO ×2 (08:03→21:42)
[2017-09-04] MEDS: ALLOPURINOL 100 MG TAB PO (08:03)
[2017-09-04] MEDS: APIXABAN 5 MG TAB (ELIQUIS) PO ×2 (08:03→21:42)
[2017-09-04] MEDS: SPIRONOLACTONE 25 MG TAB PO ×2 (08:03→21:42)
[2017-09-04] MEDS: METOCLOPRAMIDE 10 MG TAB PO ×4 (08:03→21:42)
[2017-09-04] MEDS: FUROSEMIDE 80 MG TAB PO ×2 (08:03→21:41)
[2017-09-04] MEDS: CARVedilol 12.5 MG TAB PO ×2 (08:03→21:43)
[2017-09-04] MEDS ORDERED: ISOVUE-370 76% 100ML VIAL (Q9967) As Ordered (08:41)
[2017-09-04] MEDS: AZITHROMYCIN INJ 500 MG, VIAL MATE ADAPTER 1 EACH in D5W 250 ML IV (21:43)
[2017-09-04] MEDS: ACETAMINOPHEN TAB 650MG DOSE (2X325MG) PO (22:39)
[2017-09-04] MEDS: diphenhydrAMINE 50 MG CAP PO (22:39)
[2017-09-05] MEDS: IPRATROPIUM 0.5MG/ALBUTEROL 2.5MG INH SOL UD 3ML (DUONEB)(J7620) NEB ×6 (00:25→20:15)
[2017-09-05] MEDS: methylPREDNISolone INJ 125 MG/2 ML VIAL (J2930) IV (06:12)
[2017-09-05 06:16] LABS: HEMATOCRIT 43.4 % (42.0-52.0); HEMOGLOBIN 14.1 g/dl (13.5-17.5); MEAN CORPUSCULAR HGB CONC 32.5 g/dl (32.0-36.5); MEAN CORPUSCULAR VOLUME 95.4 fl (80.0-96.0); PLATELET COUNT, AUTOMATED 149 10^3/uL (150-450); RED BLOOD COUNT 4.55 10^6/uL (4.30-6.10); RED CELL DISTRIBUTION WIDTH 11.7 % (11.5-14.5); WHITE BLOOD COUNT 10.1 10^3/uL (4.0-10.0)
[2017-09-05 06:36] LABS: ANION GAP 1 MEQ/L (8-16); BLOOD UREA NITROGEN 26 MG/DL (7-18); CALCIUM LEVEL 8.4 MG/DL (8.8-10.2); CARBON DIOXIDE LEVEL 44 MEQ/L (21-32); CHLORIDE LEVEL 96 MEQ/L (98-107); GLOMERULAR FILTRATION RATE > 60.0 (>49); GLUCOSE, FASTING 97 MG/DL (70-100); POTASSIUM SERUM 3.9 MEQ/L (3.5-5.1); SODIUM LEVEL 141 MEQ/L (136-145)
[2017-09-05] MEDS: TIOTROPIUM INHALER/CAPSULE (SPIRIVA) INH (07:18)
[2017-09-05] MEDS: SYMBICORT 160/4.5MCG INHALER 6GM INH ×2 (07:18→20:15)
[2017-09-05] MEDS: METOCLOPRAMIDE 10 MG TAB PO ×4 (07:30→22:01)
[2017-09-05] MEDS: MAGNESIUM OXIDE 400 MG TAB (MAG-OX) PO ×2 (10:05→22:01)
[2017-09-05] MEDS: MIRALAX *UNIT DOSE* 17GM PACKET PO (10:05)
[2017-09-05] MEDS: OMEPRAZOLE 20 MG CAP PO (10:05)
[2017-09-05] MEDS: CARVedilol 12.5 MG TAB PO ×2 (10:05→22:04)
[2017-09-05] MEDS: SPIRONOLACTONE 25 MG TAB PO ×2 (10:06→22:01)
[2017-09-05] MEDS: ATORVASTATIN 20 MG TAB PO (10:06)
[2017-09-05] MEDS: APIXABAN 5 MG TAB (ELIQUIS) PO ×2 (10:06→22:01)
[2017-09-05] MEDS: DOCUSATE SODIUM 100 MG CAP PO ×2 (10:06→22:01)
[2017-09-05] MEDS: ALLOPURINOL 100 MG TAB PO (10:06)
[2017-09-05] MEDS: FUROSEMIDE 80 MG TAB PO ×2 (10:07→22:01)
[2017-09-05] MEDS: AZITHROMYCIN 250 MG TAB PO (15:50)
[2017-09-05] MEDS: predniSONE 20 MG TAB PO (18:41)
[2017-09-05] MEDS: diphenhydrAMINE 50 MG CAP PO (23:04)
[2017-09-05] MEDS: ACETAMINOPHEN TAB 650MG DOSE (2X325MG) PO (23:04)
[2017-09-06] MEDS: IPRATROPIUM 0.5MG/ALBUTEROL 2.5MG INH SOL UD 3ML (DUONEB)(J7620) NEB ×7 (00:51→23:15)
[2017-09-06 07:00] LABS: HEMATOCRIT 43.6 % (42.0-52.0); MEAN CORPUSCULAR HEMOGLOBIN 31.1 pg (27.0-33.0); MEAN CORPUSCULAR HGB CONC 32.1 g/dl (32.0-36.5); MEAN CORPUSCULAR VOLUME 96.9 fl (80.0-96.0); PLATELET COUNT, AUTOMATED 132 10^3/uL (150-450); RED CELL DISTRIBUTION WIDTH 11.6 % (11.5-14.5); WHITE BLOOD COUNT 7.5 10^3/uL (4.0-10.0)
[2017-09-06 07:08] LABS: BLOOD UREA NITROGEN 27 MG/DL (7-18); CALCIUM LEVEL 8.3 MG/DL (8.8-10.2); CHLORIDE LEVEL 94 MEQ/L (98-107); CREATININE FOR GFR 1.18 MG/DL (0.70-1.30); GLOMERULAR FILTRATION RATE > 60.0 (>49); GLUCOSE, FASTING 135 MG/DL (70-100); POTASSIUM SERUM 4.1 MEQ/L (3.5-5.1); SODIUM LEVEL 144 MEQ/L (136-145)
[2017-09-06 07:18] LABS: ANION GAP 2 MEQ/L (8-16); CARBON DIOXIDE LEVEL 48 MEQ/L (21-32)
[2017-09-06] MEDS: TIOTROPIUM INHALER/CAPSULE (SPIRIVA) INH (07:49)
[2017-09-06] MEDS: SYMBICORT 160/4.5MCG INHALER 6GM INH ×2 (07:49→20:22)
[2017-09-06] MEDS: OMEPRAZOLE 20 MG CAP PO (09:11)
[2017-09-06] MEDS: ATORVASTATIN 20 MG TAB PO (09:12)
[2017-09-06] MEDS: ALLOPURINOL 100 MG TAB PO (09:12)
[2017-09-06] MEDS: APIXABAN 5 MG TAB (ELIQUIS) PO ×2 (09:12→20:53)
[2017-09-06] MEDS: MAGNESIUM OXIDE 400 MG TAB (MAG-OX) PO ×2 (09:12→20:53)
[2017-09-06] MEDS: SPIRONOLACTONE 25 MG TAB PO ×2 (09:13→20:53)
[2017-09-06] MEDS: DOCUSATE SODIUM 100 MG CAP PO ×2 (09:13→20:52)
[2017-09-06] MEDS: predniSONE 20 MG TAB PO (09:14)
[2017-09-06] MEDS: AZITHROMYCIN 250 MG TAB PO (09:14)
[2017-09-06] MEDS: FUROSEMIDE 80 MG TAB PO ×2 (09:14→20:53)
[2017-09-06] MEDS: METOCLOPRAMIDE 10 MG TAB PO ×4 (09:15→20:57)
[2017-09-06] MEDS: MIRALAX *UNIT DOSE* 17GM PACKET PO (09:15)
[2017-09-06] MEDS: CARVedilol 12.5 MG TAB PO ×2 (09:22→20:52)
[2017-09-06] MEDS: NYSTATIN 100,000 UNITS/GM TOPICAL PWD 15 GM TOP ×2 (12:33→20:53)
[2017-09-06] MEDS: LevoFLOXacin IV 500 MG in APPROPRIATE DILUENT 1 EA IV (18:04)
[2017-09-06] MEDS: CEPACOL LOZENGE PO (20:53)
[2017-09-06] MEDS: diphenhydrAMINE 50 MG CAP PO (23:11)
[2017-09-06] MEDS: ACETAMINOPHEN TAB 650MG DOSE (2X325MG) PO (23:11)
[2017-09-07] MEDS: IPRATROPIUM 0.5MG/ALBUTEROL 2.5MG INH SOL UD 3ML (DUONEB)(J7620) NEB ×6 (04:00→23:19)
[2017-09-07 07:15] LABS: HEMATOCRIT 42.8 % (42.0-52.0); HEMOGLOBIN 13.6 g/dl (13.5-17.5); MEAN CORPUSCULAR HEMOGLOBIN 30.8 pg (27.0-33.0); MEAN CORPUSCULAR HGB CONC 31.8 g/dl (32.0-36.5); MEAN CORPUSCULAR VOLUME 97.1 fl (80.0-96.0); PLATELET COUNT, AUTOMATED 132 10^3/uL (150-450); RED BLOOD COUNT 4.41 10^6/uL (4.30-6.10); RED CELL DISTRIBUTION WIDTH 11.6 % (11.5-14.5); WHITE BLOOD COUNT 7.5 10^3/uL (4.0-10.0)
[2017-09-07 07:26] LABS: BLOOD UREA NITROGEN 25 MG/DL (7-18); CALCIUM LEVEL 7.9 MG/DL (8.8-10.2); CHLORIDE LEVEL 97 MEQ/L (98-107); CREATININE FOR GFR 0.86 MG/DL (0.70-1.30); GLOMERULAR FILTRATION RATE > 60.0 (>49); GLUCOSE, FASTING 102 MG/DL (70-100); POTASSIUM SERUM 3.3 MEQ/L (3.5-5.1); SODIUM LEVEL 143 MEQ/L (136-145)
[2017-09-07] MEDS: TIOTROPIUM INHALER/CAPSULE (SPIRIVA) INH (07:28)
[2017-09-07] MEDS: SYMBICORT 160/4.5MCG INHALER 6GM INH ×2 (07:28→19:25)
[2017-09-07 07:35] LABS: CARBON DIOXIDE LEVEL 50 MEQ/L (21-32)
[2017-09-07] MEDS: predniSONE 20 MG TAB PO (08:12)
[2017-09-07] MEDS: FUROSEMIDE 80 MG TAB PO (08:13)
[2017-09-07] MEDS: ALLOPURINOL 100 MG TAB PO (08:13)
[2017-09-07] MEDS: OMEPRAZOLE 20 MG CAP PO (08:13)
[2017-09-07] MEDS: METOCLOPRAMIDE 10 MG TAB PO ×4 (08:14→20:53)
[2017-09-07] MEDS: ATORVASTATIN 20 MG TAB PO (08:14)
[2017-09-07] MEDS: APIXABAN 5 MG TAB (ELIQUIS) PO ×2 (08:14→20:53)
[2017-09-07] MEDS: SPIRONOLACTONE 25 MG TAB PO (08:14)
[2017-09-07] MEDS: MAGNESIUM OXIDE 400 MG TAB (MAG-OX) PO ×2 (08:14→20:53)
[2017-09-07] MEDS: CARVedilol 12.5 MG TAB PO ×2 (08:17→20:53)
[2017-09-07] MEDS: MIRALAX *UNIT DOSE* 17GM PACKET PO (08:20)
[2017-09-07] MEDS: NYSTATIN 100,000 UNITS/GM TOPICAL PWD 15 GM TOP ×2 (08:20→20:53)
[2017-09-07] MEDS: DOCUSATE SODIUM 100 MG CAP PO ×2 (08:20→20:53)
[2017-09-07 09:03] LABS: ABG BASE EXCESS 17.3 (-2.0-2.0); ABG HCO3 47.3 MEQ/L (22.0-26.0); ABG O2 SATURATION 94.3 % (95.0-99.0); ABG PARTIAL PRESSURE O2 73.5 mmHg (75.0-100.0); ABG STANDARD HCO3 41.4 MEQ/L (22.0-26.0); ABG TOTAL CO2 49.8 MEQ/L (23.0-31.0); ABG pH (ARTERIAL) 7.379 UNITS (7.350-7.450)
[2017-09-07] MEDS: POTASSIUM CHLORIDE 10 MEQ SR TABLET PO (10:21)
[2017-09-07 10:39] LABS: ALBUMIN 2.6 GM/DL (3.2-5.2)
[2017-09-07 12:34] LABS: ABG BASE EXCESS 16.2 (-2.0-2.0); ABG HCO3 44.4 MEQ/L (22.0-26.0); ABG O2 SATURATION 92.7 % (95.0-99.0); ABG STANDARD HCO3 40.2 MEQ/L (22.0-26.0); ABG TOTAL CO2 46.5 MEQ/L (23.0-31.0); ABG pH (ARTERIAL) 7.432 UNITS (7.350-7.450)
[2017-09-07 12:36] LABS: ABG PARTIAL PRESSURE CO2 68.1 mmHg (35.0-45.0)
[2017-09-07] MEDS: methylPREDNISolone INJ 125 MG/2 ML VIAL (J2930) IV ×2 (12:39→18:45)
[2017-09-07] MEDS: LevoFLOXacin IV 500 MG in APPROPRIATE DILUENT 1 EA IV (17:32)
[2017-09-07] MEDS: CEPACOL LOZENGE PO (20:57)
[2017-09-08] MEDS: methylPREDNISolone INJ 125 MG/2 ML VIAL (J2930) IV ×4 (00:01→18:43)
[2017-09-08] MEDS: diphenhydrAMINE 50 MG CAP PO (00:01)
[2017-09-08] MEDS: CEPACOL LOZENGE PO ×3 (03:09→21:35)
[2017-09-08] MEDS: ACETAMINOPHEN TAB 650MG DOSE (2X325MG) PO (03:09)
[2017-09-08] MEDS: IPRATROPIUM 0.5MG/ALBUTEROL 2.5MG INH SOL UD 3ML (DUONEB)(J7620) NEB ×5 (03:19→21:14)
[2017-09-08 07:36] LABS: HEMATOCRIT 42.5 % (42.0-52.0); MEAN CORPUSCULAR HGB CONC 32.9 g/dl (32.0-36.5); MEAN CORPUSCULAR VOLUME 94.2 fl (80.0-96.0); PLATELET COUNT, AUTOMATED 162 10^3/uL (150-450); RED BLOOD COUNT 4.51 10^6/uL (4.30-6.10); RED CELL DISTRIBUTION WIDTH 11.5 % (11.5-14.5); WHITE BLOOD COUNT 7.6 10^3/uL (4.0-10.0)
[2017-09-08] MEDS: TIOTROPIUM INHALER/CAPSULE (SPIRIVA) INH (07:44)
[2017-09-08] MEDS: SYMBICORT 160/4.5MCG INHALER 6GM INH ×2 (07:44→21:14)
[2017-09-08] MEDS: METOCLOPRAMIDE 10 MG TAB PO ×4 (07:45→21:34)
[2017-09-08 08:02] LABS: ANION GAP 4 MEQ/L (8-16); BLOOD UREA NITROGEN 25 MG/DL (7-18); CALCIUM LEVEL 8.5 MG/DL (8.8-10.2); CARBON DIOXIDE LEVEL 45 MEQ/L (21-32); CHLORIDE LEVEL 94 MEQ/L (98-107); CREATININE FOR GFR 0.87 MG/DL (0.70-1.30); GLOMERULAR FILTRATION RATE > 60.0 (>49); GLUCOSE, FASTING 159 MG/DL (70-100); POTASSIUM SERUM 3.7 MEQ/L (3.5-5.1); SODIUM LEVEL 143 MEQ/L (136-145)
[2017-09-08] MEDS: ALLOPURINOL 100 MG TAB PO (08:50)
[2017-09-08] MEDS: MAGNESIUM OXIDE 400 MG TAB (MAG-OX) PO ×2 (08:50→21:34)
[2017-09-08] MEDS: OMEPRAZOLE 20 MG CAP PO (08:50)
[2017-09-08] MEDS: DOCUSATE SODIUM 100 MG CAP PO ×2 (08:50→21:35)
[2017-09-08] MEDS: APIXABAN 5 MG TAB (ELIQUIS) PO ×2 (08:50→21:35)
[2017-09-08] MEDS: ATORVASTATIN 20 MG TAB PO (08:50)
[2017-09-08] MEDS: NYSTATIN 100,000 UNITS/GM TOPICAL PWD 15 GM TOP ×2 (08:51→21:34)
[2017-09-08] MEDS: CARVedilol 12.5 MG TAB PO ×2 (08:51→21:35)
[2017-09-08] MEDS: MIRALAX *UNIT DOSE* 17GM PACKET PO (08:51)
[2017-09-08] MEDS ORDERED: PILL CRUSHER/CUTTER 1 EACH XX (11:30)
[2017-09-08] MEDS ORDERED: CHLORASEPTIC SPRAY MT (11:30)
[2017-09-08] MEDS: LevoFLOXacin IV 500 MG in APPROPRIATE DILUENT 1 EA IV (17:34)
[2017-09-09] MEDS: methylPREDNISolone INJ 125 MG/2 ML VIAL (J2930) IV ×4 (00:06→18:55)
[2017-09-09] MEDS: zolPIDEM TARTRATE 5 MG TAB PO (00:07)
[2017-09-09] MEDS: IPRATROPIUM 0.5MG/ALBUTEROL 2.5MG INH SOL UD 3ML (DUONEB)(J7620) NEB ×7 (04:30→23:26)
[2017-09-09] MEDS: CEPACOL LOZENGE PO ×2 (06:06→21:47)
[2017-09-09] MEDS: TIOTROPIUM INHALER/CAPSULE (SPIRIVA) INH (07:28)
[2017-09-09] MEDS: SYMBICORT 160/4.5MCG INHALER 6GM INH ×2 (07:28→20:39)
[2017-09-09] MEDS: APIXABAN 5 MG TAB (ELIQUIS) PO ×2 (08:11→21:48)
[2017-09-09] MEDS: OMEPRAZOLE 20 MG CAP PO (08:11)
[2017-09-09] MEDS: NYSTATIN 100,000 UNITS/GM TOPICAL PWD 15 GM TOP ×2 (08:11→21:00)
[2017-09-09] MEDS: ALLOPURINOL 100 MG TAB PO (08:11)
[2017-09-09] MEDS: DOCUSATE SODIUM 100 MG CAP PO ×2 (08:11→21:48)
[2017-09-09] MEDS: CARVedilol 12.5 MG TAB PO ×2 (08:12→21:48)
[2017-09-09] MEDS: ATORVASTATIN 20 MG TAB PO (08:12)
[2017-09-09] MEDS: METOCLOPRAMIDE 10 MG TAB PO ×4 (08:12→21:48)
[2017-09-09] MEDS: MAGNESIUM OXIDE 400 MG TAB (MAG-OX) PO ×2 (08:12→21:48)
[2017-09-09] MEDS: MIRALAX *UNIT DOSE* 17GM PACKET PO (08:13)
[2017-09-09 10:18] LABS: HEMATOCRIT 45.3 % (42.0-52.0); HEMOGLOBIN 14.8 g/dl (13.5-17.5); MEAN CORPUSCULAR HEMOGLOBIN 31.1 pg (27.0-33.0); MEAN CORPUSCULAR HGB CONC 32.7 g/dl (32.0-36.5); MEAN CORPUSCULAR VOLUME 95.2 fl (80.0-96.0); PLATELET COUNT, AUTOMATED 171 10^3/uL (150-450); RED BLOOD COUNT 4.76 10^6/uL (4.30-6.10); RED CELL DISTRIBUTION WIDTH 11.6 % (11.5-14.5); WHITE BLOOD COUNT 9.4 10^3/uL (4.0-10.0)
[2017-09-09 10:43] LABS: ALBUMIN 2.9 GM/DL (3.2-5.2); ALBUMIN/GLOBULIN RATIO 0.97 (1.00-1.93); ALKALINE PHOSPHATASE 57 U/L (45-117); ALT/SGPT 23 U/L (12-78); ANION GAP 6 MEQ/L (8-16); AST/SGOT 8 U/L (7-37); BILIRUBIN,TOTAL 0.4 MG/DL (0.2-1.0); BLOOD UREA NITROGEN 32 MG/DL (7-18); CALCIUM LEVEL 8.6 MG/DL (8.8-10.2); CARBON DIOXIDE LEVEL 41 MEQ/L (21-32); CHLORIDE LEVEL 94 MEQ/L (98-107); GLOMERULAR FILTRATION RATE > 60.0 (>49); GLUCOSE, FASTING 244 MG/DL (70-100); POTASSIUM SERUM 4.2 MEQ/L (3.5-5.1); SODIUM LEVEL 141 MEQ/L (136-145); TOTAL PROTEIN 5.9 GM/DL (6.4-8.2)
[2017-09-09] MEDS: TORSEMIDE 20 MG TAB PO (11:50)
[2017-09-09] MEDS: aMILoride 5 MG TAB PO (11:50)
[2017-09-09] MEDS: LevoFLOXacin 500 MG TABLET PO (13:27)
[2017-09-09] MEDS: RAMELTEON 8 MG TAB (ROZEREM) PO (21:47)
[2017-09-10] MEDS: methylPREDNISolone INJ 125 MG/2 ML VIAL (J2930) IV ×2 (00:14→05:39)
[2017-09-10] MEDS: IPRATROPIUM 0.5MG/ALBUTEROL 2.5MG INH SOL UD 3ML (DUONEB)(J7620) NEB ×5 (04:00→21:17)
[2017-09-10] MEDS: LevoFLOXacin 500 MG TABLET PO (05:38)
[2017-09-10 06:43] LABS: BASO % 0.2 % (0.0-1.0); HEMATOCRIT 42.9 % (42.0-52.0); HEMOGLOBIN 13.8 g/dl (13.5-17.5); IMMATURE GRANULOCYTE % 1.1 % (0-3.0); LYMPH # 0.4 10^3/uL (1.5-4.5); LYMPH % 5.3 % (24.0-44.0); MEAN CORPUSCULAR HEMOGLOBIN 30.7 pg (27.0-33.0); MEAN CORPUSCULAR HGB CONC 32.2 g/dl (32.0-36.5); MEAN CORPUSCULAR VOLUME 95.5 fl (80.0-96.0); MONO # 0.3 10^3/uL (0.0-0.8); MONO % 3.6 % (0.0-5.0); NEUTROPHILS # 7.4 10^3/uL (1.8-7.7); NEUTROPHILS % 89.8 % (36.0-66.0); PLATELET COUNT, AUTOMATED 150 10^3/uL (150-450); RED BLOOD COUNT 4.49 10^6/uL (4.30-6.10); RED CELL DISTRIBUTION WIDTH 11.5 % (11.5-14.5); WHITE BLOOD COUNT 8.3 10^3/uL (4.0-10.0)
[2017-09-10 07:04] LABS: BLOOD UREA NITROGEN 35 MG/DL (7-18); CALCIUM LEVEL 8.2 MG/DL (8.8-10.2); CHLORIDE LEVEL 93 MEQ/L (98-107); GLUCOSE, FASTING 160 MG/DL (70-100); POTASSIUM SERUM 4.1 MEQ/L (3.5-5.1); SODIUM LEVEL 140 MEQ/L (136-145)
[2017-09-10 07:13] LABS: ANION GAP 5 MEQ/L (8-16); CARBON DIOXIDE LEVEL 42 MEQ/L (21-32)
[2017-09-10] MEDS: TIOTROPIUM INHALER/CAPSULE (SPIRIVA) INH (07:21)
[2017-09-10] MEDS: SYMBICORT 160/4.5MCG INHALER 6GM INH ×2 (07:22→21:17)
[2017-09-10] MEDS: ALLOPURINOL 100 MG TAB PO (08:40)
[2017-09-10] MEDS: aMILoride 5 MG TAB PO (08:40)
[2017-09-10] MEDS: METOCLOPRAMIDE 10 MG TAB PO ×4 (08:40→21:11)
[2017-09-10] MEDS: OMEPRAZOLE 20 MG CAP PO (08:41)
[2017-09-10] MEDS: CARVedilol 12.5 MG TAB PO ×2 (08:43→21:10)
[2017-09-10] MEDS: TORSEMIDE 20 MG TAB PO (08:44)
[2017-09-10] MEDS: ATORVASTATIN 20 MG TAB PO (08:44)
[2017-09-10] MEDS: APIXABAN 5 MG TAB (ELIQUIS) PO ×2 (08:44→21:11)
[2017-09-10] MEDS: MIRALAX *UNIT DOSE* 17GM PACKET PO (08:45)
[2017-09-10] MEDS: MAGNESIUM OXIDE 400 MG TAB (MAG-OX) PO ×2 (08:45→21:10)
[2017-09-10] MEDS: DOCUSATE SODIUM 100 MG CAP PO ×2 (08:45→21:00)
[2017-09-10] MEDS: NYSTATIN 100,000 UNITS/GM TOPICAL PWD 15 GM TOP ×2 (08:49→21:11)
[2017-09-10] MEDS: AcetaZOLAMIDE 250 MG TAB PO ×2 (12:29→21:11)
[2017-09-10] MEDS: methylPREDNISolone INJ 40 MG/1 ML VIAL (J2920) IV ×2 (14:34→21:09)
[2017-09-11] MEDS: IPRATROPIUM 0.5MG/ALBUTEROL 2.5MG INH SOL UD 3ML (DUONEB)(J7620) NEB ×6 (04:00→20:00)
[2017-09-11] MEDS: methylPREDNISolone INJ 40 MG/1 ML VIAL (J2920) IV ×3 (05:29→20:59)
[2017-09-11] MEDS: LevoFLOXacin 500 MG TABLET PO (05:30)
[2017-09-11 06:50] LABS: BASO % 0.1 % (0.0-1.0); HEMATOCRIT 42.6 % (42.0-52.0); HEMOGLOBIN 14.2 g/dl (13.5-17.5); IMMATURE GRANULOCYTE % 1.1 % (0-3.0); LYMPH # 0.6 10^3/uL (1.5-4.5); LYMPH % 6.3 % (24.0-44.0); MEAN CORPUSCULAR HEMOGLOBIN 31.3 pg (27.0-33.0); MEAN CORPUSCULAR HGB CONC 33.3 g/dl (32.0-36.5); MONO # 0.6 10^3/uL (0.0-0.8); MONO % 5.6 % (0.0-5.0); NEUTROPHILS # 8.7 10^3/uL (1.8-7.7); NEUTROPHILS % 86.9 % (36.0-66.0); PLATELET COUNT, AUTOMATED 148 10^3/uL (150-450); RED BLOOD COUNT 4.53 10^6/uL (4.30-6.10); RED CELL DISTRIBUTION WIDTH 11.3 % (11.5-14.5)
[2017-09-11 07:04] LABS: ANION GAP 2 MEQ/L (8-16); BLOOD UREA NITROGEN 35 MG/DL (7-18); CALCIUM LEVEL 8.3 MG/DL (8.8-10.2); CARBON DIOXIDE LEVEL 43 MEQ/L (21-32); CHLORIDE LEVEL 94 MEQ/L (98-107); GLOMERULAR FILTRATION RATE > 60.0 (>49); GLUCOSE, FASTING 155 MG/DL (70-100); MAGNESIUM LEVEL 2.2 MG/DL (1.8-2.4); POTASSIUM SERUM 4.3 MEQ/L (3.5-5.1); SODIUM LEVEL 139 MEQ/L (136-145)
[2017-09-11] MEDS: TIOTROPIUM INHALER/CAPSULE (SPIRIVA) INH (07:13)
[2017-09-11] MEDS: SYMBICORT 160/4.5MCG INHALER 6GM INH ×2 (07:13→21:14)
[2017-09-11] MEDS: aMILoride 5 MG TAB PO (08:13)
[2017-09-11] MEDS: OMEPRAZOLE 20 MG CAP PO (08:14)
[2017-09-11] MEDS: TORSEMIDE 20 MG TAB PO (08:14)
[2017-09-11] MEDS: MIRALAX *UNIT DOSE* 17GM PACKET PO (08:15)
[2017-09-11] MEDS: MAGNESIUM OXIDE 400 MG TAB (MAG-OX) PO ×2 (08:15→20:58)
[2017-09-11] MEDS: CARVedilol 12.5 MG TAB PO ×2 (08:15→20:59)
[2017-09-11] MEDS: DOCUSATE SODIUM 100 MG CAP PO ×2 (08:15→20:58)
[2017-09-11] MEDS: METOCLOPRAMIDE 10 MG TAB PO ×4 (08:15→20:58)
[2017-09-11] MEDS: APIXABAN 5 MG TAB (ELIQUIS) PO ×2 (08:16→20:58)
[2017-09-11] MEDS: ATORVASTATIN 20 MG TAB PO (08:16)
[2017-09-11] MEDS: NYSTATIN 100,000 UNITS/GM TOPICAL PWD 15 GM TOP ×2 (08:17→20:58)
[2017-09-11] MEDS: ALLOPURINOL 100 MG TAB PO (08:17)
[2017-09-11] MEDS: AcetaZOLAMIDE 250 MG TAB PO ×2 (08:17→20:59)
[2017-09-12] MEDS: IPRATROPIUM 0.5MG/ALBUTEROL 2.5MG INH SOL UD 3ML (DUONEB)(J7620) NEB ×6 (04:00→22:02)
[2017-09-12] MEDS: LevoFLOXacin 500 MG TABLET PO (05:56)
[2017-09-12] MEDS: methylPREDNISolone INJ 40 MG/1 ML VIAL (J2920) IV (05:56)
[2017-09-12 07:20] LABS: BASO % 0.2 % (0.0-1.0); HEMATOCRIT 44.4 % (42.0-52.0); HEMOGLOBIN 14.6 g/dl (13.5-17.5); IMMATURE GRANULOCYTE % 1.1 % (0-3.0); LYMPH # 0.7 10^3/uL (1.5-4.5); LYMPH % 6.3 % (24.0-44.0); MEAN CORPUSCULAR HEMOGLOBIN 30.4 pg (27.0-33.0); MEAN CORPUSCULAR HGB CONC 32.9 g/dl (32.0-36.5); MEAN CORPUSCULAR VOLUME 92.5 fl (80.0-96.0); MONO # 0.7 10^3/uL (0.0-0.8); MONO % 6.5 % (0.0-5.0); NEUTROPHILS # 8.8 10^3/uL (1.8-7.7); NEUTROPHILS % 85.9 % (36.0-66.0); PLATELET COUNT, AUTOMATED 138 10^3/uL (150-450); RED CELL DISTRIBUTION WIDTH 11.3 % (11.5-14.5); WHITE BLOOD COUNT 10.2 10^3/uL (4.0-10.0)
[2017-09-12] MEDS: SYMBICORT 160/4.5MCG INHALER 6GM INH ×2 (07:30→21:00)
[2017-09-12] MEDS: TIOTROPIUM INHALER/CAPSULE (SPIRIVA) INH (07:31)
[2017-09-12 07:39] LABS: ANION GAP 3 MEQ/L (8-16); BLOOD UREA NITROGEN 40 MG/DL (7-18); CALCIUM LEVEL 8.3 MG/DL (8.8-10.2); CARBON DIOXIDE LEVEL 38 MEQ/L (21-32); CHLORIDE LEVEL 97 MEQ/L (98-107); CREATININE FOR GFR 1.15 MG/DL (0.70-1.30); GLOMERULAR FILTRATION RATE > 60.0 (>49); GLUCOSE, FASTING 133 MG/DL (70-100); MAGNESIUM LEVEL 2.3 MG/DL (1.8-2.4); POTASSIUM SERUM 4.5 MEQ/L (3.5-5.1); SODIUM LEVEL 138 MEQ/L (136-145)
[2017-09-12] MEDS: DOCUSATE SODIUM 100 MG CAP PO ×2 (09:00→21:57)
[2017-09-12] MEDS: MIRALAX *UNIT DOSE* 17GM PACKET PO (09:00)
[2017-09-12] MEDS: METOCLOPRAMIDE 10 MG TAB PO ×4 (10:11→21:58)
[2017-09-12] MEDS: MAGNESIUM OXIDE 400 MG TAB (MAG-OX) PO ×2 (10:11→21:57)
[2017-09-12] MEDS: OMEPRAZOLE 20 MG CAP PO (10:11)
[2017-09-12] MEDS: ATORVASTATIN 20 MG TAB PO (10:12)
[2017-09-12] MEDS: AcetaZOLAMIDE 250 MG TAB PO ×2 (10:12→21:58)
[2017-09-12] MEDS: aMILoride 5 MG TAB PO (10:12)
[2017-09-12] MEDS: APIXABAN 5 MG TAB (ELIQUIS) PO ×2 (10:12→21:57)
[2017-09-12] MEDS: CARVedilol 12.5 MG TAB PO ×2 (10:13→21:58)
[2017-09-12] MEDS: TORSEMIDE 10 MG TABLET PO (10:13)
[2017-09-12] MEDS: NYSTATIN 100,000 UNITS/GM TOPICAL PWD 15 GM TOP ×2 (10:14→21:58)
[2017-09-12] MEDS: predniSONE 20 MG TAB PO (10:19)
[2017-09-12] MEDS: ALLOPURINOL 100 MG TAB PO (10:19)
[2017-09-13] MEDS: IPRATROPIUM 0.5MG/ALBUTEROL 2.5MG INH SOL UD 3ML (DUONEB)(J7620) NEB ×5 (03:53→22:03)
[2017-09-13] MEDS: LevoFLOXacin 500 MG TABLET PO (06:17)
[2017-09-13 07:03] LABS: BASO % 0.4 % (0.0-1.0); EOS % 0.1 % (0.0-3.0); HEMATOCRIT 46.5 % (42.0-52.0); HEMOGLOBIN 15.3 g/dl (13.5-17.5); IMMATURE GRANULOCYTE % 2.1 % (0-3.0); LYMPH # 1.5 10^3/uL (1.5-4.5); MEAN CORPUSCULAR HEMOGLOBIN 31.2 pg (27.0-33.0); MEAN CORPUSCULAR HGB CONC 32.9 g/dl (32.0-36.5); MEAN CORPUSCULAR VOLUME 94.7 fl (80.0-96.0); MONO # 0.9 10^3/uL (0.0-0.8); MONO % 8.7 % (0.0-5.0); NEUTROPHILS # 7.9 10^3/uL (1.8-7.7); NEUTROPHILS % 74.7 % (36.0-66.0); PLATELET COUNT, AUTOMATED 135 10^3/uL (150-450); RED BLOOD COUNT 4.91 10^6/uL (4.30-6.10); RED CELL DISTRIBUTION WIDTH 11.5 % (11.5-14.5); WHITE BLOOD COUNT 10.5 10^3/uL (4.0-10.0)
[2017-09-13 07:27] LABS: ANION GAP 4 MEQ/L (8-16); BLOOD UREA NITROGEN 37 MG/DL (7-18); CALCIUM LEVEL 8.5 MG/DL (8.8-10.2); CARBON DIOXIDE LEVEL 39 MEQ/L (21-32); CHLORIDE LEVEL 99 MEQ/L (98-107); CREATININE FOR GFR 1.07 MG/DL (0.70-1.30); GLOMERULAR FILTRATION RATE > 60.0 (>49); GLUCOSE, FASTING 108 MG/DL (70-100); MAGNESIUM LEVEL 2.1 MG/DL (1.8-2.4); POTASSIUM SERUM 3.7 MEQ/L (3.5-5.1); SODIUM LEVEL 142 MEQ/L (136-145)
[2017-09-13] MEDS: TIOTROPIUM INHALER/CAPSULE (SPIRIVA) INH (07:37)
[2017-09-13] MEDS: SYMBICORT 160/4.5MCG INHALER 6GM INH ×2 (07:37→21:00)
[2017-09-13] MEDS: MIRALAX *UNIT DOSE* 17GM PACKET PO (09:00)
[2017-09-13] MEDS: DOCUSATE SODIUM 100 MG CAP PO ×2 (09:00→22:16)
[2017-09-13] MEDS: AcetaZOLAMIDE 250 MG TAB PO ×2 (09:14→22:17)
[2017-09-13] MEDS: ATORVASTATIN 20 MG TAB PO (09:14)
[2017-09-13] MEDS: OMEPRAZOLE 20 MG CAP PO (09:14)
[2017-09-13] MEDS: TORSEMIDE 10 MG TABLET PO (09:15)
[2017-09-13] MEDS: ALLOPURINOL 100 MG TAB PO (09:15)
[2017-09-13] MEDS: APIXABAN 5 MG TAB (ELIQUIS) PO ×2 (09:15→22:17)
[2017-09-13] MEDS: MAGNESIUM OXIDE 400 MG TAB (MAG-OX) PO ×2 (09:16→22:17)
[2017-09-13] MEDS: METOCLOPRAMIDE 10 MG TAB PO ×4 (09:16→22:17)
[2017-09-13] MEDS: predniSONE 20 MG TAB PO (09:16)
[2017-09-13] MEDS: aMILoride 5 MG TAB PO (09:18)
[2017-09-13] MEDS: CARVedilol 12.5 MG TAB PO ×2 (09:18→22:16)
[2017-09-13] MEDS: NYSTATIN 100,000 UNITS/GM TOPICAL PWD 15 GM TOP ×2 (09:21→22:17)
[2017-09-13] MEDS: POTASSIUM CHLORIDE 10 MEQ SR TABLET PO (17:01)
[2017-09-14] MEDS: IPRATROPIUM 0.5MG/ALBUTEROL 2.5MG INH SOL UD 3ML (DUONEB)(J7620) NEB ×5 (04:00→16:00)
[2017-09-14] MEDS: LevoFLOXacin 500 MG TABLET PO (05:50)
[2017-09-14 05:57] LABS: BASO % 0.3 % (0.0-1.0); EOS % 0.3 % (0.0-3.0); HEMATOCRIT 44.9 % (42.0-52.0); HEMOGLOBIN 14.6 g/dl (13.5-17.5); IMMATURE GRANULOCYTE % 1.7 % (0-3.0); LYMPH # 1.5 10^3/uL (1.5-4.5); LYMPH % 14.9 % (24.0-44.0); MEAN CORPUSCULAR HEMOGLOBIN 30.8 pg (27.0-33.0); MEAN CORPUSCULAR HGB CONC 32.5 g/dl (32.0-36.5); MEAN CORPUSCULAR VOLUME 94.7 fl (80.0-96.0); MONO # 0.7 10^3/uL (0.0-0.8); MONO % 7.4 % (0.0-5.0); NEUTROPHILS # 7.5 10^3/uL (1.8-7.7); NEUTROPHILS % 75.4 % (36.0-66.0); PLATELET COUNT, AUTOMATED 115 10^3/uL (150-450); RED BLOOD COUNT 4.74 10^6/uL (4.30-6.10); RED CELL DISTRIBUTION WIDTH 11.4 % (11.5-14.5)
[2017-09-14 06:16] LABS: ANION GAP 5 MEQ/L (8-16); BLOOD UREA NITROGEN 35 MG/DL (7-18); CALCIUM LEVEL 8.1 MG/DL (8.8-10.2); CARBON DIOXIDE LEVEL 37 MEQ/L (21-32); CHLORIDE LEVEL 101 MEQ/L (98-107); CREATININE FOR GFR 1.02 MG/DL (0.70-1.30); GLOMERULAR FILTRATION RATE > 60.0 (>49); GLUCOSE, FASTING 146 MG/DL (70-100); MAGNESIUM LEVEL 1.9 MG/DL (1.8-2.4); POTASSIUM SERUM 3.7 MEQ/L (3.5-5.1); SODIUM LEVEL 143 MEQ/L (136-145)
[2017-09-14] MEDS: OMEPRAZOLE 20 MG CAP PO (08:06)
[2017-09-14] MEDS: DOCUSATE SODIUM 100 MG CAP PO (08:07)
[2017-09-14] MEDS: METOCLOPRAMIDE 10 MG TAB PO ×3 (08:07→16:08)
[2017-09-14] MEDS: POTASSIUM CHLORIDE 10 MEQ SR TABLET PO ×2 (08:07→08:27)
[2017-09-14] MEDS: aMILoride 5 MG TAB PO (08:07)
[2017-09-14] MEDS: MIRALAX *UNIT DOSE* 17GM PACKET PO ×2 (08:07→08:21)
[2017-09-14] MEDS: ALLOPURINOL 100 MG TAB PO (08:09)
[2017-09-14] MEDS: APIXABAN 5 MG TAB (ELIQUIS) PO (08:09)
[2017-09-14] MEDS: predniSONE 20 MG TAB PO (08:09)
[2017-09-14] MEDS: CARVedilol 12.5 MG TAB PO ×2 (08:09→16:08)
[2017-09-14] MEDS: ATORVASTATIN 20 MG TAB PO (08:09)
[2017-09-14] MEDS: MAGNESIUM OXIDE 400 MG TAB (MAG-OX) PO (08:10)
[2017-09-14] MEDS: AcetaZOLAMIDE 250 MG TAB PO ×2 (08:10→16:07)
[2017-09-14] MEDS: TORSEMIDE 20 MG TAB PO (08:26)
[2017-09-14] MEDS: SYMBICORT 160/4.5MCG INHALER 6GM INH (08:33)
[2017-09-14] MEDS: TIOTROPIUM INHALER/CAPSULE (SPIRIVA) INH (08:33)
[2017-09-14] MEDS: NYSTATIN 100,000 UNITS/GM TOPICAL PWD 15 GM TOP (11:46)
== END 2017-09-14 17:15 | disposition home or self-care (01) | DRG 189 ==
LOC: M ED 09-01 00:04 → M MS5PR 09-05 14:04 → M ED 18:26
DX: J96.21 Acute and chronic respiratory failure with hypoxia (principal); N17.9 Acute kidney failure, unspecified; J44.1 Chronic obstructive pulmonary disease with (acute) exacerbation; E87.2 Acidosis; I27.81 Cor pulmonale (chronic); I50.9 Heart failure, unspecified; M10.9 Gout, unspecified; I25.10 Atherosclerotic heart disease of native coronary artery without angina pectoris; I48.91 Unspecified atrial fibrillation; Z79.01 Long term (current) use of anticoagulants; Z86.711 Personal history of pulmonary embolism; Z85.47 Personal history of malignant neoplasm of testis; R13.10 Dysphagia, unspecified; Z79.899 Other long term (current) drug therapy; I27.20 Pulmonary hypertension, unspecified; Z87.891 Personal history of nicotine dependence; Z99.81 Dependence on supplemental oxygen; Z91.19 Patient's noncompliance with other medical treatment and regimen; G47.33 Obstructive sleep apnea (adult) (pediatric); R73.03 Prediabetes; E87.6 Hypokalemia; K31.84 Gastroparesis; B34.8 Other viral infections of unspecified site

== ENCOUNTER 2017-12-16 13:28 | Emergency (ER) | payer OTHER ==
[2017-12-16 15:04] LABS: BASO % 0.3 % (0.0-1.0); EOS % 0.2 % (0.0-3.0); HEMATOCRIT 46.1 % (42.0-52.0); HEMOGLOBIN 15.2 g/dl (13.5-17.5); IMMATURE GRANULOCYTE % 0.5 % (0-3.0); LYMPH % 10.8 % (24.0-44.0); MEAN CORPUSCULAR HEMOGLOBIN 30.3 pg (27.0-33.0); MEAN CORPUSCULAR VOLUME 91.8 fl (80.0-96.0); MONO # 1.1 10^3/uL (0.0-0.8); NEUTROPHILS # 7.4 10^3/uL (1.8-7.7); NEUTROPHILS % 77.2 % (36.0-66.0); PLATELET COUNT, AUTOMATED 170 10^3/uL (150-450); RED BLOOD COUNT 5.02 10^6/uL (4.30-6.10); RED CELL DISTRIBUTION WIDTH 12.2 % (11.5-14.5); WHITE BLOOD COUNT 9.6 10^3/uL (4.0-10.0)
[2017-12-16 15:28] LABS: ANION GAP 8 MEQ/L (8-16); BLOOD UREA NITROGEN 14 MG/DL (7-18); C REACTIVE PROTEIN QUANTITATIV 3.48 MG/DL (0.00-0.30); CALCIUM LEVEL 8.7 MG/DL (8.8-10.2); CARBON DIOXIDE LEVEL 29 MEQ/L (21-32); CHLORIDE LEVEL 104 MEQ/L (98-107); CREATININE FOR GFR 0.94 MG/DL (0.70-1.30); GLOMERULAR FILTRATION RATE > 60.0 (>49); GLUCOSE, FASTING 119 MG/DL (70-100); POTASSIUM SERUM 4.1 MEQ/L (3.5-5.1); SODIUM LEVEL 141 MEQ/L (136-145)
[2017-12-16] MEDS: MORPHINE 4 MG/ML 1ML VIAL/SYRINGE (J2270) IV ×2 (15:35→17:13)
[2017-12-16 15:53] LABS: ERYTHROCYTE SEDIMENTATION RATE 17 mm/hr (0-20)
[2017-12-16] MEDS: CEFTAROLINE FOSAMIL 600 MG in D5W MINI-BAG PLUS 50 ML IV (17:11)
[2017-12-16] MEDS: ACETAMINOPHEN TAB 650MG DOSE (2X325MG) PO (17:29)
== END 2017-12-16 18:36 | disposition home or self-care (01) ==
LOC: M ED 13:28
DX: L03.113 Cellulitis of right upper limb (principal); I13.0 Hypertensive heart and chronic kidney disease with heart failure and stage 1 through stage 4 chronic kidney disease, or unspecified chronic kidney disease; J45.909 Unspecified asthma, uncomplicated; E78.5 Hyperlipidemia, unspecified; Z86.718 Personal history of other venous thrombosis and embolism; N18.2 Chronic kidney disease, stage 2 (mild); F32.9 Major depressive disorder, single episode, unspecified; G47.33 Obstructive sleep apnea (adult) (pediatric); Z99.81 Dependence on supplemental oxygen; I50.9 Heart failure, unspecified; Z85.47 Personal history of malignant neoplasm of testis; Z95.1 Presence of aortocoronary bypass graft; Z79.01 Long term (current) use of anticoagulants; Z79.899 Other long term (current) drug therapy; Z87.891 Personal history of nicotine dependence; Z79.51 Long term (current) use of inhaled steroids
CPT/HCPCS: J2270

== ENCOUNTER 2017-12-19 14:49 | Emergency (ER) | payer OTHER, SELFPAY ==
[2017-12-19] MEDS: NORCO, ANEXSIA 5/325MG TABLET (HYDROcodone/ACETAMINOPHEN) PO ×2 (18:28)
[2017-12-19] MEDS: CEFTAROLINE FOSAMIL 600 MG in D5W MINI-BAG PLUS 50 ML IV (18:37)
[2017-12-19 18:41] LABS: BASO % 0.6 % (0.0-1.0); EOS # 0.1 10^3/uL (0.0-0.50); EOS % 0.9 % (0.0-3.0); HEMATOCRIT 47.4 % (42.0-52.0); HEMOGLOBIN 15.6 g/dl (13.5-17.5); IMMATURE GRANULOCYTE % 0.2 % (0-3.0); LYMPH # 1.7 10^3/uL (1.5-4.5); LYMPH % 26.1 % (24.0-44.0); MEAN CORPUSCULAR HEMOGLOBIN 30.1 pg (27.0-33.0); MEAN CORPUSCULAR HGB CONC 32.9 g/dl (32.0-36.5); MEAN CORPUSCULAR VOLUME 91.5 fl (80.0-96.0); MONO # 0.7 10^3/uL (0.0-0.8); MONO % 10.2 % (0.0-5.0); NEUTROPHILS # 4.1 10^3/uL (1.8-7.7); PLATELET COUNT, AUTOMATED 214 10^3/uL (150-450); RED BLOOD COUNT 5.18 10^6/uL (4.30-6.10); RED CELL DISTRIBUTION WIDTH 11.8 % (11.5-14.5); WHITE BLOOD COUNT 6.6 10^3/uL (4.0-10.0)
[2017-12-19 19:11] LABS: ANION GAP 9 MEQ/L (8-16); BLOOD UREA NITROGEN 20 MG/DL (7-18); CALCIUM LEVEL 9.3 MG/DL (8.8-10.2); CARBON DIOXIDE LEVEL 33 MEQ/L (21-32); CHLORIDE LEVEL 100 MEQ/L (98-107); CREATININE FOR GFR 1.21 MG/DL (0.70-1.30); GLOMERULAR FILTRATION RATE > 60.0 (>49); GLUCOSE, FASTING 109 MG/DL (70-100); POTASSIUM SERUM 3.6 MEQ/L (3.5-5.1); SODIUM LEVEL 142 MEQ/L (136-145)
[2017-12-19 19:11] LABS: C REACTIVE PROTEIN QUANTITATIV 7.05 MG/DL (0.00-0.30)
[2017-12-19 19:21] LABS: DIFF SLIDE NUMBER 10
[2017-12-19 19:48] LABS: ERYTHROCYTE SEDIMENTATION RATE 10 mm/hr (0-20)
[2017-12-19] MEDS: NORCO 5/325MG TABLET (BULK FOR ED) PO ×2 (20:25)
== END 2017-12-19 20:30 | disposition home or self-care (01) ==
LOC: M ED 14:49
DX: L03.113 Cellulitis of right upper limb (principal); I50.9 Heart failure, unspecified; I11.0 Hypertensive heart disease with heart failure; Z87.891 Personal history of nicotine dependence; Z79.899 Other long term (current) drug therapy; Z79.01 Long term (current) use of anticoagulants; Z79.51 Long term (current) use of inhaled steroids
CPT/HCPCS: J0712

== ENCOUNTER 2018-01-03 10:12 | Emergency (ER) | payer OTHER ==
[2018-01-03 10:46] LABS: BASO # 0.1 10^3/uL (0.0-0.2); BASO % 0.4 % (0.0-1.0); EOS # 0.1 10^3/uL (0.0-0.50); EOS % 0.9 % (0.0-3.0); HEMATOCRIT 43.8 % (42.0-52.0); HEMOGLOBIN 14.3 g/dl (13.5-17.5); IMMATURE GRANULOCYTE % 0.5 % (0-3.0); LYMPH # 1.1 10^3/uL (1.5-4.5); LYMPH % 8.1 % (24.0-44.0); MEAN CORPUSCULAR HEMOGLOBIN 29.7 pg (27.0-33.0); MEAN CORPUSCULAR HGB CONC 32.6 g/dl (32.0-36.5); MEAN CORPUSCULAR VOLUME 91.1 fl (80.0-96.0); NEUTROPHILS # 10.6 10^3/uL (1.8-7.7); NEUTROPHILS % 82.1 % (36.0-66.0); PLATELET COUNT, AUTOMATED 195 10^3/uL (150-450); RED BLOOD COUNT 4.81 10^6/uL (4.30-6.10); RED CELL DISTRIBUTION WIDTH 12.2 % (11.5-14.5); WHITE BLOOD COUNT 12.9 10^3/uL (4.0-10.0)
[2018-01-03 11:28] LABS: ALBUMIN 3.1 GM/DL (3.2-5.2); ALBUMIN/GLOBULIN RATIO 0.91 (1.00-1.93); ALKALINE PHOSPHATASE 88 U/L (45-117); ALT/SGPT 19 U/L (12-78); ANION GAP 8 MEQ/L (8-16); AST/SGOT 8 U/L (7-37); BILIRUBIN,DIRECT < 0.1 MG/DL (0.0-0.2); BILIRUBIN,TOTAL 0.5 MG/DL (0.2-1.0); BLOOD UREA NITROGEN 21 MG/DL (7-18); CALCIUM LEVEL 8.3 MG/DL (8.8-10.2); CARBON DIOXIDE LEVEL 29 MEQ/L (21-32); CHLORIDE LEVEL 105 MEQ/L (98-107); CPK CREATINE PHOSPHOKINASE 27 U/L (39-308); CREATININE FOR GFR 1.12 MG/DL (0.70-1.30); GLOMERULAR FILTRATION RATE > 60.0 (>49); GLUCOSE, FASTING 131 MG/DL (70-100); MB/CK RELATIVE INDEX 4.07 (< OR =4); NT-PRO BNP 546 PG/ML (<125); POTASSIUM SERUM 3.4 MEQ/L (3.5-5.1); SODIUM LEVEL 142 MEQ/L (136-145); TOTAL PROTEIN 6.5 GM/DL (6.4-8.2); TROPONIN I < 0.02 NG/ML (< 0.10)
[2018-01-03 12:00] LABS: INR 1.23; PROTHROMBIN TIME 15.7 SECONDS (12.1-14.4)
[2018-01-03] MEDS: methylPREDNISolone INJ 125 MG/2 ML VIAL (J2930) IV (12:32)
[2018-01-03] MEDS: MORPHINE 4 MG/ML 1ML VIAL/SYRINGE (J2270) IV (12:32)
[2018-01-03] MEDS: IPRATROPIUM 0.5MG/ALBUTEROL 2.5MG INH SOL UD 3ML (DUONEB)(J7620) NEB (12:34)
[2018-01-03 12:53] LABS: C REACTIVE PROTEIN QUANTITATIV 1.26 MG/DL (0.00-0.30); URIC ACID 5.8 MG/DL (3.5-7.2)
[2018-01-03] MEDS: POTASSIUM CHLORIDE 10 MEQ SR TABLET PO (12:56)
[2018-01-03 13:00] LABS: ERYTHROCYTE SEDIMENTATION RATE 12 mm/hr (0-20)
[2018-01-03] MEDS: NORCO, ANEXSIA 5/325MG TABLET (HYDROcodone/ACETAMINOPHEN) PO (14:31)
[2018-01-03] MEDS: CEPHALEXIN 500 MG CAP PO (14:31)
== END 2018-01-03 16:07 | disposition home or self-care (01) ==
LOC: M ED 10:12
DX: L03.113 Cellulitis of right upper limb (principal); I48.91 Unspecified atrial fibrillation; I11.0 Hypertensive heart disease with heart failure; I50.9 Heart failure, unspecified; G47.33 Obstructive sleep apnea (adult) (pediatric); N18.9 Chronic kidney disease, unspecified; Z85.47 Personal history of malignant neoplasm of testis; Z87.891 Personal history of nicotine dependence; Z79.899 Other long term (current) drug therapy; Z79.01 Long term (current) use of anticoagulants; Z79.51 Long term (current) use of inhaled steroids
CPT/HCPCS: J2270

== ENCOUNTER 2018-08-16 11:09 | Inpatient (IN) | payer OTHER ==
[~2018-08-16] VITALS: Ht 190.5 cm; Wt 152.2 kg
[2018-08-16] MEDS: TAMSULOSIN 0.4 MG CAP PO SCH (09:00)
[~2018-08-16 11:09] MED LIST changes: +ACET250T2 PO; +AMIL25TA PO; +AMIL5TAB4 PO; -ATOR40TA PO; +ATOR40TA75 PO; +AVEL1TAB3 PO; +COLC1TAB14 PO; -COLC1TAB5 PO; +CORE25TA PO; +DEMA20TA6 PO; +DOXY-350 PO; +DOXY100C37 PO; -FURO1TAB15 PO; +FURO80TA2 PO; +GABA-1171 PO; -GABA-279 PO; +HYDR-3715 PO; +IPRA0.00 INH; -IPRASOL4 INH; +K-TA10TA2 PO; +KLOR10TA76 PO; +KLOR20TA42 PO; +LASI40TA9 PO; +LASI80TA3 PO; +LEVA1TAB2 PO; +MELO15TA28 PO; +METO10TA2 PO; +METO1TAB87 PO; +OCEA0.654; +OSEL75CA PO; +POTA10TA16 PO; +PRED10TA2 PO; +PRED20TA PO; +SENN1TAB40 PO; +SIME80TA PO; +SPIR-10 PO; -SPIR25TA2 PO; -SPIR50TA2 PO; +SPIR50TA4 PO; +TORS20TA2 PO; +VENTAER INH
[2018-08-16 11:30] LABS: HEMATOCRIT 50.8 % (42.0-52.0); HEMOGLOBIN 16.1 g/dl (13.5-17.5); MEAN CORPUSCULAR HEMOGLOBIN 29.1 pg (27.0-33.0); MEAN CORPUSCULAR HGB CONC 31.7 g/dl (32.0-36.5); MEAN CORPUSCULAR VOLUME 91.7 fl (80.0-96.0); PLATELET COUNT, AUTOMATED 182 10^3/uL (150-450); RED BLOOD COUNT 5.54 10^6/uL (4.30-6.10); WHITE BLOOD COUNT 14.5 10^3/uL (4.0-10.0)
[2018-08-16] MEDS ORDERED: CARV25TA PO (11:30)
[2018-08-16 11:45] LABS: INR 1.55; PROTHROMBIN TIME 18.3 SECONDS (11.8-14.0)
[2018-08-16] MEDS ORDERED: ACETAMINOPHEN 500 MG TAB PO ONE (11:45)
--- NOTE | 2018-08-16 11:45 | REP ---
Portable chest, 11:17 a.m., single AP view with the patient semi upright: Comparisons are the PA and lateral chest dated 01/03/2018 and portable chest dated 03/06/2018. There are no focal infiltrates. There are no pleural effusions. There is chronic cardiomegaly. There is chronic mild interstitial coarsening compatible with chronic lung disease. The chris, mediastinum, skeletal structures are unremarkable. Impression: Chronic cardiomegaly. Chronic interstitial coarsening. No focal infiltrate or pleural effusion. Electronically Signed by Amando Nuñez MD 08/16/2018 11:36 A
[2018-08-16 11:57] LABS: BASOPHILS 1 % (0-4); LYMPHOCYTES 7 % (16-52); NEUTROPHILS 67 % (35-75)
[2018-08-16 11:59] LABS: PLATELET ESTIMATE NORMAL (NORMAL); TOXIC VACUOLATION 3+
[2018-08-16 12:12] LABS: ALBUMIN 2.7 GM/DL (3.2-5.2); ALT/SGPT 30 U/L (12-78); BILIRUBIN,DIRECT 0.6 MG/DL (0.0-0.2); BLOOD UREA NITROGEN 26 MG/DL (7-18); CARBON DIOXIDE LEVEL 28 MEQ/L (21-32); CHLORIDE LEVEL 104 MEQ/L (98-107); CK-MB VALUE MASS < 1.0 NG/ML (<3.6); CPK CREATINE PHOSPHOKINASE 28 U/L (39-308); CREATININE FOR GFR 1.65 MG/DL (0.70-1.30); GLOMERULAR FILTRATION RATE 45.1 (>49); GLUCOSE, FASTING 118 MG/DL (70-100); MB/CK RELATIVE INDEX 3.57 (< OR =4); NT-PRO BNP 2457 PG/ML (<125); POTASSIUM SERUM 3.4 MEQ/L (3.5-5.1); SODIUM LEVEL 141 MEQ/L (136-145); THYROXINE (T4) 5.8 UG/DL (4.5-12.0); TOTAL PROTEIN 6.1 GM/DL (6.4-8.2); TROPONIN I 0.03 NG/ML (< 0.10)
[2018-08-16] MEDS ORDERED: CEFEPIME HCL 2 GM in D5W MINI-BAG PLUS 50 ML IV ONE (12:30)
[2018-08-16] MEDS ORDERED: IPRATROPIUM 0.5MG/ALBUTEROL 2.5MG INH SOL UD 3ML (DUONEB)(J7620) NEB ONE (12:30)
[2018-08-16] MEDS ORDERED: LORazepam 2 MG/ML VIAL (J2060) IV STA (12:39)
[2018-08-16] MEDS ORDERED: ISOVUE-370 76% 100ML VIAL (Q9967) As Ordered ONE (13:09)
[2018-08-16] MEDS: NS 1,000 ML IV SCH ×2 (13:47→17:15)
[2018-08-16] MEDS ORDERED: NS IV ONE (14:30)
[2018-08-16] MEDS ORDERED: DILUENT IV ONE (14:30)
[2018-08-16] MEDS ORDERED: REGL10TA6 PO (15:26)
[2018-08-16] MEDS ORDERED: D-10TAB3 PO (15:26)
[2018-08-16] MEDS ORDERED: SPIR1CAP INH (15:26)
[2018-08-16] MEDS ORDERED: TRAM50TA2 PO (15:26)
[2018-08-16] MEDS ORDERED: DICL1GEL3 TOP (15:26)
[2018-08-16] MEDS ORDERED: REFR0.5D8 OU (15:26)
[2018-08-16] MEDS ORDERED: MAGN400T2 PO (15:26)
[2018-08-16] MEDS ORDERED: ACET250T2 PO (15:26)
[2018-08-16] MEDS ORDERED: SIME80TA PO (15:26)
[2018-08-16] MEDS ORDERED: TORS20TA2 PO (15:26)
[2018-08-16] MEDS ORDERED: POTA10CA32 PO (15:26)
[2018-08-16] MEDS ORDERED: ZYLO300T6 PO (15:26)
[2018-08-16] MEDS ORDERED: SPIR-10 PO (15:26)
[2018-08-16] MEDS ORDERED: PRED20TA PO (15:26)
[2018-08-16] MEDS ORDERED: PANT-23 PO (15:26)
[2018-08-16] MEDS ORDERED: FLUT50SP21 NARES (15:26)
[2018-08-16] MEDS ORDERED: ATOR80TA59 PO (15:26)
[2018-08-16] MEDS ORDERED: CIPR500T3 PO (15:54)
[2018-08-16] MEDS ORDERED: PATIENT COMMENT (15:55)
[2018-08-16] MEDS ORDERED: SIMETHICONE 80 MG CHEW TAB PO PRN (16:15)
[2018-08-16] MEDS ORDERED: IPRATROPIUM 0.5MG/ALBUTEROL 2.5MG INH SOL UD 3ML (DUONEB)(J7620) NEB PRN (16:15)
[2018-08-16] MEDS: KCL 40MEQ in NS 1000ML 1,000 ML IV SCH ×2 (16:58→22:14)
[2018-08-16] MEDS: PIPERACILLIN/TAZOBACTAM SOD 3.375 GM in D5W MINI-BAG PLUS 50 ML IV SCH ×2 (17:06→22:15)
[2018-08-16] MEDS: METOCLOPRAMIDE 10 MG TAB PO SCH ×2 (17:30→20:22)
--- NOTE | 2018-08-16 17:59 | HPE ---
DATE OF ADMISSION: 08/16/2018 PRIMARY CARE PROVIDER: [facility]. ATTENDING PHYSICIAN: Hospitalist group. PRINCIPAL DIAGNOSES: Acute bacterial prostatitis with sepsis, atrial fibrillation with rapid ventricular response, acute kidney injury and hypercapnic respiratory failure. HISTORY: Terell Mujica is a 63-year-old. He is followed by the [place] [facility]. He has been hospitalized at [facility] frequently for chronic obstructive pulmonary disease (COPD) exacerbations, three times in the last year and a half, most recently February 2018. He was recently hospitalization at the [place] hospital, I do not have any of those records. The patient is somewhat somnolent right now but he indicates that he is being treated for prostatitis and it looks like he was on Cipro upon discharge. He presented to the emergency room with respiratory distress, but further evaluation has suggested that he has acute bacterial prostatitis. He had a CT scan of the abdomen and pelvis, official report is not back yet, but per emergency room physician it shows induration and inflammation around the prostate. He has 25 bands on his complete blood count (CBC) with a leukocytosis. His systolic pressure is only 100. He is being admitted to the intensive care unit (ICU) for sepsis secondary to acute bacterial prostatitis. He has a history of atrial fibrillation. He currently has rapid ventricular response, probably from the sepsis. He is on Eliquis for thromboembolic prophylaxis. He has COPD that is fairly severe. He was seen by Fred Diaz/Dr. Jesus in February 2018. They note that he was previously followed by Dr. Castañeda for COPD, most recently July 2014, but [facility]. In 2014 he had an FEV1 of 1.65. He had an FEV1/FVC ratio of 62%. He has obstructive sleep apnea, for which he was noncompliant with continuous positive airway pressure (CPAP). He has a history of cardiomyopathy. He had an echocardiogram during his February 2018 hospitalization that showed an ejection fraction of 50%, mildly dilated left ventricle, mildly eccentric left ventricular hypertrophy, mildly dilated left atrium, mildly dilated aortic root, elevated right sided pressures. Other past medical history shows a history of pulmonary embolism with an IVC filter placed, hypertension, testicular cancer with apparently an orchiectomy and lymph node resection in 2018. He also has had a hernia repair. He has had a prior cardiac catheterization, though we are not sure of the results of this. He has a history of nonsustained ventricular tachycardia. ALLERGIES: None known. SOCIAL HISTORY: Lives with a roommate. Does not smoke. Occasional alcohol use. FAMILY HISTORY: Father had a myocardial infarction. MEDICATIONS: His medication list was reviewed and is in the medical summary. REVIEW OF SYSTEMS: Difficult to obtain. He tells me that it johnston to urinate. He has trouble emptying his bladder fully and feels like he still has some retained urine. Denies flank pain. Denies chills. He says that he feels very weak. PHYSICAL EXAMINATION: Blood pressure 102/53, pulse 114, respiratory rate 24, oxygen saturation 97% on 2 liters. Temperature 102 degrees. GENERAL APPEARANCE: He looks ill, lying in bed. He is somewhat sedated from receiving low dose Ativan. He was able to answer questions, though his speech is slurred. Pupils are equal and reactive. Tympanic membranes and oropharynx benign. No jugular venous distention (JVD). LUNGS: Decreased breath sounds. HEART: Regular without murmur. ABDOMEN: Soft, nontender. No masses. RECTAL: Examination was performed by the emergency room physician that was nondiagnostic examination because of the patient's large body habitus. EXTREMITIES: No clubbing or cyanosis. Trace peripheral edema. Moves arms and legs with equal strength. LABORATORIES: White count 14.5 with 25% bands. Sodium 141, potassium 3.4, BUN 26, creatinine 1.6 (baseline creatinine is 0.9). BNP 2457. Urinalysis shows 2+ leukocytes, 3+ bacteria. ABG on admission was 7.32/45/131. He received low dose Ativan 0.5 mg. Staff noted respirations seemed to decrease and his blood gas showed pH 7.20, pCO2 of 64, pO2 85. CT of the abdomen and pelvis report is pending from emergency room physician, which shows inflammation around the prostate. IMPRESSION: 1. Acute bacterial prostatitis with sepsis. The patient will be admitted to the intensive care unit (ICU). He looks ill. He was discharged on Cipro, it is on his current medication list. Recommendation for acute bacterial prostatitis includes Zosyn plus aminoglycoside. With his acute kidney injury, I am holding the aminoglycoside for now. I will give Zosyn as monotherapy, which is an accepted alternative per Up to Date. I have ordered a gram-stain of his urine. Typically this a gram-negative situation, but he has recently been hospitalized in the [place] and could have been catheterized (he cannot tell me if he was). He is at risk of Enterococcus or some other gram-positives. Coverage may need to be extended. He has also been on prednisone, so he is immunosuppressed as well. I have ordered IV fluids. Test Grader has been consulted. 2. Hypercapnic respiratory failure. He came in short of breath, I think it was from sepsis stressing his chronic obstructive pulmonary disease (COPD). He received a bit of Ativan, he has respiratory depression now. Emergency room BiPAP. I consulted Dr. Ruiz, case has been discussed. 3. Atrial fibrillation with rapid ventricular response. The rapid response is probably precipitated by the sepsis. Continue his Eliquis. Continue his Coreg. Hopefully his pressure will be sufficient that he can receive his scheduled dose of Coreg. I will be signing him out to Dr. Macias for the remainder of the shift. He can keep an eye on his blood pressure, as he might need his cardiac agents adjusted. 4. History of chronic obstructive pulmonary disease (COPD), which is severe. He is on steroids. I am assuming that he was discharged from the hospital on this. Continue his nebulized bronchodilator. 5. History of cardiomyopathy. I am holding his torsemide and spironolactone in the face of the hypotension and sepsis. I imagine with diuresis, IV fluid will be off later. At this point, we need to get his pressures up.
--- NOTE | 2018-08-16 18:02 | CR ---
DATE OF CONSULTATION: 08/16/2018 ATTENDING PHYSICIAN: Dr. Ferrell REASON FOR CONSULTATION: Respiratory acidosis. HISTORY OF PRESENT ILLNESS: Mr. Mujica is a 63-year-old gentleman with known asthma/chronic obstructive pulmonary disease (COPD) and significant underlying obstructive sleep apnea syndrome. He is essentially noncompliant with his bilevel positive airway pressure (BiPAP). Near as we can assess, he should be on bilevel 20/12 with a rate of 8 at home. He was recently seen and treated at [facility] for [facility]itis. Apparently he was discharged. Over the last several days he has been more short of breath, complaining of rectal pain. He presented here to the emergency room (ER). He was found to have very significant prostatitis. He was complaining of shortness of breath. He got some pain medication and some anxiolytics. Although his first blood gas was actually quite reasonable with a pH of 7.327, pCO2 of 45, and a pO2 of 131, later he was more somnolent and pH down to 7.205, pCO2 of 63.6, and a pO2 of 85. On noninvasive support he is much more comfortable. Mental status is much improved. Repeat blood gas is pending. On exam, he currently has improvement in his heart rate, as he had atrial fibrillation with rapid ventricular response earlier. He is down to a heart rate in the low 100s with occasional ectopy. Blood pressure 97 systolic, respiratory rate approximately 26-28 without obvious accessory muscle use. He is afebrile. HEENT shows noninvasive mask in place. Pupils do react, sclerae clear. Trachea is in the midline. Jugular venous system difficult to assess. Chest shows diminished but symmetric expansion. There are some opening crackles dependently but no other focal adventitious breath sounds are identified. Cardiac exam: Mildly tachycardic distant but regular. Peripheral pulses are diminished but palpable. There is at least 1+ edema. Abdomen morbidly obese. Scars consistent with his previous abdominal surgeries. No obvious organomegaly or masses. Extremities: No cyanosis or clubbing. Neurologically, he is sedate but easily arousable. Follows commands and moves all extremities. Other laboratories show white blood cells down to 14.5, hemoglobin 16.1, platelet count of 182,000, 67% segmented neutrophils, 25% bands. Sodium 141, potassium 3.4, chloride 104, CO2 of 28, BUN 26, creatinine 1.65, glucose 118. ProBNP 2457. CT scan of the abdomen has reportedly shown significant prostatitis. Chest x-ray independently reviewed by myself shows cardiomegaly but no obvious infiltrates. There may be some subsegmental plate-like atelectasis. The most pressing problems requiring my presence at the bedside: 1. Acute hypercapnic respiratory failure. 2. Asthma/chronic obstructive pulmonary disease (COPD). 3. Obstructive apnea syndrome with noncompliance. 4. Prostatitis with question of early sepsis, but lactic acid is 2.0 currently. 5. Atrial fibrillation with rapid ventricular response (RVR). At this point, we have made adjustments in his noninvasive support as well as in the mask, and he is currently moving tidal volumes anywhere from 350-450 mL. Repeat blood gas is pending. HE states he is much less short of breath. He appears more comfortable in the last 20-30 minutes with me at the bedside. His current pain control is reasonable. I am in full agreement with his current choice of antimicrobials. Ulcer and deep vein thrombosis (DVT) prophylaxis are in place. At this point, we will proceed as outlined above. I have spoken both with Dr. Ferrell as well as Dr. Macias. Given his current statis, he certainly is at high risk for further deterioration, but hopefully we will be able to avoid endotracheal intubation. He remains critically ill. I left the bedside at 1739 hours. A total of 34 minutes of critical care time was noted at the bedside, not including procedures.
--- NOTE | 2018-08-16 18:12 | REP ---
CT ABDOMEN AND PELVIS WITH IV CONTRAST: TECHNIQUE: Axial contrast enhanced images from the lung bases to the pubic symphysis using 100 mL Isovue 370 intravenous contrast material with multiplanar reformations. The visualized lung bases demonstrate fibro atelectatic changes. The liver demonstrates no significant abnormality. Gallbladder is moderately distended and contains tiny stones. The spleen is unremarkable as are the adrenals, pancreas and kidneys. There is no evidence of abdominal aortic aneurysm. There are multiple metallic clips in the periaortic region. There is an IVC filter present. I do not see lymphadenopathy. There is no free air or free fluid. There is no bowel wall thickening. In the pelvis there is diffuse inflammatory change in the fat surrounding the prostate and bladder. The prostate appears enlarged compared to prior study of 08/11/2016. Urinary bladder is collapsed. The wall may be thickened. Findings suggest prostatitis and possibly cystitis. No abscess collection is seen. There is a left inguinal hernia containing fat. IMPRESSION: There appears to be inflammatory change in the pelvic fat surrounding the prostate and bladder. The prostate appears enlarged and the bladder wall appears somewhat thickened. Findings suggest prostatitis and cystitis. No free fluid or fluid collection. There is a small left inguinal hernia containing fat. There are tiny gallstones in a moderately distended gallbladder without evidence of gallbladder wall edema. Electronically Signed by Amando Cedeno MD 08/16/2018 06:44 P
[2018-08-16 18:32] VITALS: BP 114/67
[2018-08-16 18:56] LABS: ABG BASE EXCESS -4.9 (-2.0-2.0); ABG HCO3 22.9 MEQ/L (22.0-26.0); ABG PARTIAL PRESSURE CO2 53.4 mmHg (35.0-45.0); ABG PARTIAL PRESSURE O2 74.2 mmHg (75.0-100.0); ABG STANDARD HCO3 20.4 MEQ/L (22.0-26.0); ABG TOTAL CO2 24.5 MEQ/L (23.0-31.0)
[2018-08-16 19:00] VITALS: BP 105/59
--- NOTE | 2018-08-16 19:35 | ECGEPIP ---
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
[2018-08-16 20:00] VITALS: BP 90/61
[2018-08-16] MEDS: IPRATROPIUM 0.5MG/ALBUTEROL 2.5MG INH SOL UD 3ML (DUONEB)(J7620) NEB SCH (20:00)
[2018-08-16] MEDS ORDERED: SYMBICORT 160/4.5MCG INHALER 6GM INH SCH (20:00)
[2018-08-16] MEDS: SYMBICORT 160/4.5MCG INHALER 6GM INH SCH (20:00)
[2018-08-16] MEDS: BUDESONIDE 0.5 MG/2 ML INHALATION SUSPENSION INH SCH (20:06)
[2018-08-16] MEDS: FORMOTEROL FUMARATE 20 MCG/2 ML INHALATION SOLUTION (PERFOROMIST) INH SCH (20:06)
[2018-08-16] MEDS: APIXABAN 5 MG TAB (ELIQUIS) PO SCH (20:21)
[2018-08-16] MEDS: MAGNESIUM OXIDE 400 MG TAB (MAG-OX) PO SCH (20:21)
[2018-08-16] MEDS: AcetaZOLAMIDE 250 MG TAB PO SCH (20:22)
[2018-08-16] MEDS ORDERED: DIGOXIN INJ 0.5 MG/2 ML AMP (J1160) IV ONE (20:30)
[2018-08-16] MEDS: CARVedilol 12.5 MG TAB PO SCH (20:38)
[2018-08-16 21:00] VITALS: BP 81/51
[2018-08-16 22:00] VITALS: BP 90/63
[2018-08-16 22:31] LABS: CK-MB VALUE MASS 2.2 NG/ML (<3.6); CPK CREATINE PHOSPHOKINASE 136 U/L (39-308); MB/CK RELATIVE INDEX 1.62 (< OR =4); TROPONIN I < 0.02 NG/ML (< 0.10)
[2018-08-16 23:00] VITALS: BP 89/53
[2018-08-17] VITALS (12 sets, daily range): BP systolic 89–125; BP diastolic 52–70
[2018-08-17] MEDS ORDERED: DIGOXIN INJ 0.5 MG/2 ML AMP (J1160) IV ONE (01:00)
[2018-08-17] MEDS: IPRATROPIUM 0.5MG/ALBUTEROL 2.5MG INH SOL UD 3ML (DUONEB)(J7620) NEB SCH ×4 (01:40→20:32)
[2018-08-17] MEDS: KCL 40MEQ in NS 1000ML 1,000 ML IV SCH ×5 (02:15→22:15)
[2018-08-17 04:16] LABS: HEMATOCRIT 43.2 % (42.0-52.0); HEMOGLOBIN 13.5 g/dl (13.5-17.5); MEAN CORPUSCULAR HEMOGLOBIN 28.4 pg (27.0-33.0); MEAN CORPUSCULAR HGB CONC 31.3 g/dl (32.0-36.5); MEAN CORPUSCULAR VOLUME 90.8 fl (80.0-96.0); PLATELET COUNT, AUTOMATED 114 10^3/uL (150-450); RED BLOOD COUNT 4.76 10^6/uL (4.30-6.10); WHITE BLOOD COUNT 17.7 10^3/uL (4.0-10.0)
[2018-08-17 04:43] LABS: LYMPHOCYTES 2 % (16-52); METAMYELOCYTES 1 % (0-0); MONOCYTES 7 % (0-8); NEUTROPHILS 80 % (35-75); PLATELET ESTIMATE NORMAL (NORMAL)
[2018-08-17 04:50] LABS: BLOOD UREA NITROGEN 35 MG/DL (7-18); CARBON DIOXIDE LEVEL 23 MEQ/L (21-32); CHLORIDE LEVEL 110 MEQ/L (98-107); CK-MB VALUE MASS 2.7 NG/ML (<3.6); CPK CREATINE PHOSPHOKINASE 118 U/L (39-308); CREATININE FOR GFR 1.77 MG/DL (0.70-1.30); GLOMERULAR FILTRATION RATE 41.6 (>49); GLUCOSE, FASTING 117 MG/DL (70-100); MB/CK RELATIVE INDEX 2.29 (< OR =4); POTASSIUM SERUM 4.5 MEQ/L (3.5-5.1); SODIUM LEVEL 141 MEQ/L (136-145); TROPONIN I < 0.02 NG/ML (< 0.10)
[2018-08-17] MEDS: PIPERACILLIN/TAZOBACTAM SOD 3.375 GM in D5W MINI-BAG PLUS 50 ML IV SCH ×4 (05:49→23:49)
[2018-08-17] MEDS: FORMOTEROL FUMARATE 20 MCG/2 ML INHALATION SOLUTION (PERFOROMIST) INH SCH ×2 (07:45→20:00)
[2018-08-17] MEDS: BUDESONIDE 0.5 MG/2 ML INHALATION SUSPENSION INH SCH ×2 (07:45→20:32)
[2018-08-17] MEDS: TIOTROPIUM INHALER/CAPSULE (SPIRIVA) INH SCH (07:55)
[2018-08-17] MEDS: SYMBICORT 160/4.5MCG INHALER 6GM INH SCH ×2 (07:56→20:00)
[2018-08-17] MEDS: CARVedilol 12.5 MG TAB PO SCH ×2 (08:35→21:00)
[2018-08-17] MEDS: METOCLOPRAMIDE 10 MG TAB PO SCH ×4 (08:36→21:04)
[2018-08-17] MEDS: VITAMIN D 1,000 INTERNATIONAL UNITS TABLET PO SCH (08:36)
[2018-08-17] MEDS: APIXABAN 5 MG TAB (ELIQUIS) PO SCH ×2 (08:36→21:04)
[2018-08-17] MEDS: predniSONE 20 MG TAB PO SCH (08:36)
[2018-08-17] MEDS: ALLOPURINOL 300 MG TAB PO SCH (08:36)
[2018-08-17] MEDS: TAMSULOSIN 0.4 MG CAP PO SCH (08:36)
[2018-08-17] MEDS: AcetaZOLAMIDE 250 MG TAB PO SCH ×2 (08:36→21:27)
[2018-08-17] MEDS: ATORVASTATIN 20 MG TAB PO SCH (08:36)
[2018-08-17] MEDS: MAGNESIUM OXIDE 400 MG TAB (MAG-OX) PO SCH ×2 (08:37→21:04)
[2018-08-17] MEDS: POTASSIUM CHLORIDE 10 MEQ SR TABLET PO SCH (08:37)
--- NOTE | 2018-08-17 08:37 | IPNPDOC ---
Text Note Date of Service The patient was seen on 08/17/18. NOTE S: patiient being seen for Acute prostatitis with early sepsis, COPD exacerba tion with hypercapneic respiratory failure. Patient states still with increased rectal and bladder pain/pressure, dysuria, urgency. denies SOB, CP. States breathing improved and is currently off bipap eating breakfast. O: Vitals as below General: obese, mild distress due to rectal pain with sitting, AAOx3 HRRR no murmur LCTA no W/R/R, diminished breathsounds Ext: trace edema to ankles Abdomen: Soft distended, NABS, bilateral lower quadrant tenderness but no rebound, no rigidity CT ABD/PEL: There appears to be inflammatory change in the pelvic fat surrounding the prostate and bladder. The prostate appears enlarged and the bladder wall appears somewhat thickened. Findings suggest prostatitis and cystitis. No free fluid or fluid collection. A/P: Acute hypercapneic respiratory failure due to COPD exacerbation with early sepsis from acute prostatitis - IVF, hold potassium oral dose, pulmonary deputy court consulted and managing respiratory status Acute prostatitis with early sepsis - was on cipro; placed on zosyn yesterday on admission (see H&P) ; urology consulted (Dr Quiroga) and r blayne from CT requested. [place] - IVF, monitor. COPD exacerbation - steroids, zosyn, nebs, bipap ИВАН - non compliant with cpap at home Current Medications Acetazolamide (Diamox) 250 mg BID PO Last administered on 08/16/18at 20:22; Start 08/16/18 at 21:00 Albuterol/ Ipratropium (Duoneb (Ipr 0.5mg/Alb 2.5mg)) 3 ml Q2HP PRN NEB SOB/WHEEZING; Start 08/16/18 at 16:15 Albuterol/ Ipratropium (Duoneb (Ipr 0.5mg/Alb 2.5mg)) 3 ml RQ6H NEB Last administered on 08/17/18at 01:40; Start 08/16/18 at 20:00 Allopurinol (Zyloprim) 300 mg DAILY PO ; Start 08/17/18 at 09:00 Apixaban (Eliquis) 5 mg BID PO Last administered on 08/16/18at 20:21; Start 08/16/18 at 21:00 Atorvastatin Calcium (Lipitor) 40 mg DAILY PO ; Start 08/17/18 at 09:00 Budesonide (Pulmicort) 0.5 mg RBID INH Last administered on 08/17/18at 07:45; Start 08/16/18 at 20:00 Budesonide/ Formoterol Fumarate (Symbicort 160/ 4.5mcg) 2 puff RBID INH ; Start 08/16/18 at 20:00 Carvedilol (COReg) 25 mg BID PO ; Start 08/16/18 at 21:00 Formoterol Fumarate (Perforomist) 20 mcg RBID INH Last administered on 08/17/18at 07:45; Start 08/16/18 at 20:00 Magnesium Oxide (Mag-Ox) 400 mg BID PO Last administered on 08/16/18at 20:21; Start 08/16/18 at 21:00 Metoclopramide HCl (Reglan) 10 mg ACHS PO Last administered on 08/16/18at 20:22; Start 08/16/18 at 17:30 Piperacillin Sod/ Tazobactam Sod 3.375 gm/Dextrose 50 ml @ 50 mls/hr Q6H IV Last administered on 08/17/18at 05:49; Start 08/16/18 at 17:00 Potassium Chloride/Sodium Chloride 1,000 ml @ 200 mls/hr Q5H IV Last administered on 08/16/18at 22:14; Start 08/16/18 at 16:15 Potassium Chloride (Micro-K Extencaps) 20 meq DAILY PO ; Start 08/17/18 at 09:00 Prednisone (Deltasone) 40 mg DAILY PO ; Start 08/17/18 at 09:00 Simethicone (Mylicon) 80 mg QID PRN PO GAS PAIN; Start 08/16/18 at 16:15 Sodium Chloride 1,000 ml @ 250 mls/hr Q4H IV Last administered on 08/16/18at 13:47; Start 08/16/18 at 13:15; Stop 08/16/18 at 19:22; Status DC Tamsulosin HCl (Flomax) 0.4 mg DAILY PO ; Start 08/16/18 at 09:00 Tiotropium [place] (Spiriva Handihaler) 1 inhalation DAILY INH ; Start 08/17/18 at 09:00 Vitamin D (Vitamin D) 2,000 units DAILY PO ; Start 08/17/18 at 09:00 VS,Fishbone, I+O VS, Fishbone, I+O Laboratory Tests 08/16/18 11:18 Red Blood Count 5.54, Mean Corpuscular Volume 91.7, Mean Corpuscular Hemoglobin 29.1, Mean Corpuscular Hemoglobin Concent 31.7 L, Red Cell Distribution Width 13.6 08/17/18 03:54 Red Blood Count 4.76, Mean Corpuscular Volume 90.8, Mean Corpuscular Hemoglobin 28.4, Mean Corpuscular Hemoglobin Concent 31.3 L, Red Cell Distribution Width 13.8, Calcium Level 8.0 L, Total Creatine Kinase 118 Vital Signs Date Time Temp Pulse Resp B/P (MAP) Pulse Ox O2 Delivery O2 Flow Rate FiO2 08/17/18 07:45 21 08/17/18 05:00 83 25 89/56 (67) 92 08/17/18 04:00 98.2 08/16/18 18:00 NIPPV (BIPAP/CPAP) 08/16/18 15:45 3.0 I&O- Last 24 Hours up to 6 AM 08/17/18 06:00 Intake Total 5040 ml Output Total 975 ml Balance 4065 ml PALLAVI HUA DO Aug 17, 2018 07:57
[2018-08-17 09:05] LABS: ABG BASE EXCESS -3.1 (-2.0-2.0); ABG HCO3 22.6 MEQ/L (22.0-26.0); ABG O2 SATURATION 98.9 % (95.0-99.0); ABG PARTIAL PRESSURE CO2 42.9 mmHg (35.0-45.0); ABG PARTIAL PRESSURE O2 146.5 mmHg (75.0-100.0); ABG STANDARD HCO3 21.9 MEQ/L (22.0-26.0); ABG TOTAL CO2 23.9 MEQ/L (23.0-31.0)
--- NOTE | 2018-08-17 10:12 | CCN ---
DATE: 08/17/2018 TIME OF VISIT: 0914. I again attended Terell Mujica here in the intensive care unit. The patient has been examined and the chart is reviewed. He was taken off BiPAP this morning and currently is refusing to put it back on and this will be discussed further below. Maximum temperature (T-max) overnight 98.4, blood pressure 90-120 systolic and is not requiring vasopressors. Heart rate down into the 80s but remains irregular, mainly atrial fibrillation. Respiratory rate in the mid 20s without accessory muscle use. Input and output midnight to midnight 4740 mL in with 525 mL out. It appears on 2 liters nasal cannula shows a pH 7.240, pCO2 42.9 and a pO2 106.5. White blood cell count 17.7, which is up from yesterday, hemoglobin 13.5, platelet count 114,000, 80% segmented neutrophils, 10% bands today. Sodium 141, potassium 4.5, chloride 110, CO2 23, BUN 35, creatinine mildly increased at 1.77. INR 1.5. On exam, he is awake, alert and appropriate. He is on nasal cannula oxygen. HEENT is otherwise generally normocephalic, atraumatic. There is some mild cyanosis at the tip of the nose. Sclerae are clear, nonicteric. Mucous membranes are moist and trachea is in the midline. Chest shows diminished but symmetric expansion. No focal wheeze, rhonchus, crackles or rubs. Cardiac exam: Distal and irregular. Peripheral pulses palpable, although mildly diminished. Trace edema. Abdomen is obese, soft, with active bowel sounds. Scars again noted, well healed. No obvious organomegaly or masses. Extremities: No cyanosis or clubbing. Neurologic: He is awake, alert and appropriate. Psych: with normal mood and affect. Most pressing problems requiring my presence at the bedside: 1. Acute hypercapnic respiratory failure. 2. Obstructive sleep apnea syndrome with noncompliance. 3. Chronic obstructive pulmonary disease (COPD)/asthma. 4. Prostatitis. 5. Atrial fibrillation with rapid ventricular rate (RPR). At this point, he has shown response to noninvasive support. He is currently refusing it but we had a long discussion regarding its role in his care. He is known to have significant sleep apnea and noncompliance with therapy I believe is contributory to his current status. He is agreeable to at least for now to wear it nightly and naps. He has been seen by Dr. Quiroga this morning. He recommends continuing current antibiotics and following him clinically. No other intervention from his standpoint is planned at the moment. Also deep venous thrombosis (DVT) prophylaxis are in place. His coagulation status is being managed through primary care. At this point, will proceed as outlined above. Further recommendations will be made in the progress record as new information becomes available. JULISA
--- NOTE | 2018-08-17 11:41 | SMCUROLCON ---
Urology Consultation General Date of Consultation 08/17/18 Reason For Consultation This patient is seen for Acute Bacterial Prostatitis. History of Present Illness This is a 63 y/o M w/ a PMH significant for COPD, a fib (on eliquis), pulmonary embolism with an IVC filter placed, CKD, HTN, and testicular cancer s/p right radical orchiectomy in 1977, admitted for a COPD exacerbation and acute prostatitis w/ possible sepsis. We have been consulted for recommendations on management of acute prostatitis. The patient notes that he started having dysuria and prostate pain approximately 1 wk ago. He was seen at [facility] and started on cipro. He denied any improvement while on cipro and started having fevers/chills, and worsening pain. This prompted him to come to [facility] ER yesterday. On presentation there he was found to be febrile, tachycardic, and hypoxic and had a WBC of 14.5. Blood and urine cultures were obtained and a CT A/P was performed. The CT was negative for prostate abscess but notable for inflammation surrounding the prostate and bladder. He was started on zosyn. He continues to have dysuria, urinary frequency, urgency, and prostate pain, but notes some improvement since admission. Prior to this starting last week, he denies ever having any prostate problems or difficulty urinating. Past Medical History Medical History see HPI Surgical Hstory right radical orchiectomy, LIH repair, ventral hernia repair, IVC filter p lacement, cardiac cath Medications Current Medications Current Medications Acetazolamide (Diamox) 250 mg BID PO Last administered on 08/17/18at 08:36; Start 08/16/18 at 21:00 Albuterol/ Ipratropium (Duoneb (Ipr 0.5mg/Alb 2.5mg)) 3 ml Q2HP PRN NEB SOB/WHEEZING; Start 08/16/18 at 16:15 Albuterol/ Ipratropium (Duoneb (Ipr 0.5mg/Alb 2.5mg)) 3 ml RQ6H NEB Last administered on 08/17/18at 01:40; Start 08/16/18 at 20:00 Allopurinol (Zyloprim) 300 mg DAILY PO Last administered on 08/17/18at 08:36; Start 08/17/18 at 09:00 Apixaban (Eliquis) 5 mg BID PO Last administered on 08/17/18 08:36; Start 08/16/18 at 21:00 Atorvastatin Calcium (Lipitor) 40 mg DAILY PO Last administered on 08/17/18 08:36; Start 08/17/18 at 09:00 Budesonide (Pulmicort) 0.5 mg RBID INH Last administered on 08/17/18 07:45; Start 08/16/18 at 20:00 Budesonide/ Formoterol Fumarate (Symbicort 160/ 4.5mcg) 2 puff RBID INH ; Start 08/16/18 at 20:00; Stop 08/16/18 at 20:00; Status DC Budesonide/ Formoterol Fumarate (Symbicort 160/ 4.5mcg) 2 puff RBID INH Last administered on 08/17/18at 07:56; Start 08/16/18 at 20:00 Carvedilol (COReg) 25 mg BID PO ; Start 08/16/18 at 21:00 Formoterol Fumarate (Perforomist) 20 mcg RBID INH Last administered on 08/17/18 07:45; Start 08/16/18 at 20:00 Home Med (Med Rec Complete!) ASDIRECTED XX ; Start 08/16/18 at 16:00; Stop 08/16/18 at 16:00; Status DC Lorazepam (Ativan) 0.5 mg STAT STAT IV Last administered on 08/16/18at 13:23; Start 08/16/18 at 12:39; Stop 08/16/18 at 12:40; Status DC Magnesium Oxide (Mag-Ox) 400 mg BID PO Last administered on 08/17/18 08:37; Start 08/16/18 at 21:00 Metoclopramide HCl (Reglan) 10 mg ACHS PO Last administered on 08/17/18 08:36; Start 08/16/18 at 17:30 Piperacillin Sod/ Tazobactam Sod 3.375 gm/Dextrose 50 ml @ 50 mls/hr Q6H IV Last administered on 08/17/18 05:49; Start 08/16/18 at 17:00 Potassium Chloride/Sodium Chloride 1,000 ml @ 200 mls/hr Q5H IV Last administered on 08/17/18 08:37; Start 08/16/18 at 16:15 Potassium Chloride (Micro-K Extencaps) 20 meq DAILY PO ; Start 08/17/18 at 09:00; Status Future hold Prednisone (Deltasone) 40 mg DAILY PO Last administered on 08/17/18at 08:36; Start 08/17/18 at 09:00 Simethicone (Mylicon) 80 mg QID PRN PO GAS PAIN; Start 08/16/18 at 16:15 Sodium Chloride 1,000 ml @ 250 mls/hr Q4H IV Last administered on 08/16/18at 13:47; Start 08/16/18 at 13:15; Stop 08/16/18 at 19:22; Status DC Tamsulosin HCl (Flomax) 0.4 mg DAILY PO Last administered on 08/17/18 08:36; Start 08/16/18 at 09:00 Tiotropium [place] (Spiriva Handihaler) 1 inhalation DAILY INH Last administered on 08/17/18 07:55; Start 08/17/18 at 09:00 Vitamin D (Vitamin D) 2,000 units DAILY PO Last administered on 08/17/18 08:36; Start 08/17/18 at 09:00 Allergies Allergies: Coded Allergies: No Known Drug Allergies (Verified Allergy, Unknown, 08/16/18) Review of Systems General: Reports: Chills Constitutional: Reports: Fever, Chills Skin: Denies: Rash, Lesions, Breakdown, Nail Changes Pulmonary: Reports: Dyspnea Cardiovascular: Denies Chest Pain Gastrointestinal: Denies: Nausea, Vomiting Genitourinary: Reports: Dysuria, Frequency, Other Symptoms (urgency) Musculoskeletal: Denies: Neck Pain, Back Pain Psych: Reports: Mood Normal Physical Examination General Exam: Alert, Cooperative Chest Exam: Normal air movement Abdomen Exam: Soft; No: Tenderness Skin Exam: Nl turgor and temperature Neuro Exam: Normal Speech Psych Exam: Mental status NL, Mood NL Vital Signs/I&O Vital Signs Date Time Temp Pulse Resp B/P (MAP) Pulse Ox O2 Delivery O2 Flow Rate FiO2 08/17/18 09:00 92 108/70 (83) 96 2.0 08/17/18 08:00 97.1 25 08/17/18 07:45 21 08/16/18 18:00 NIPPV (BIPAP/CPAP) I&O- Last 24 Hours up to 6 AM 08/17/18 06:00 Intake Total 5040 ml Output Total 975 ml Balance 4065 ml Laboratory Data 24H Labs Laboratory Tests 2 08/16/18 11:18: Nucleated Red Blood Cells % (auto) 0.0, Neutrophils 67, Band Neutrophils 25H, Lymphocytes (Manual) 7L, Basophils (Manual) 1, Toxic Vacuolation 3+, Platelet Estimate NORMAL, Prothrombin Time 18.3H, Prothromb Time International Ratio 1.55, Anion Gap 9, Glomerular Filtration Rate 45.1L, Lactic Acid Level 2.0, Calcium Level 9.0, Aspartate Amino Transf (AST/SGOT) 16, Alanine Aminotransferase (ALT/SGPT) 30, Alkaline Phosphatase 119H, Total Bilirubin 1.0, Direct Bilirubin 0.6H, Total Creatine Kinase 28L, Creatine Kinase MB < 1.0, Creatine Kinase MB Relative Index 3.57, Troponin I 0.03, ZC-[id number]-G-Type Natriuretic Peptide 2457H, Total Protein 6.1L, Albumin 2.7L, Albumin/Globulin Ratio 0.79L, Thyroid Stimulating Hormone (TSH) 1.520, Thyroxine (T4) 5.8 08/16/18 11:23: POC pH (Misc Panel) 7.327L, POC Saturated Percent O2 (Misc) 99H, POC pO2 (Misc Panel) 131.0H, POC pCO2 (Misc Panel) 45.5H, POC HCO3 (Misc Panel) 23.9, POC Total CO2 (Misc Panel) 25.0 08/16/18 13:38: Urine Color TOD, Urine Appearance CLOUDYH, Urine pH 5.0, Urine Specific [place] 1.012, Urine Protein 2+H, Urine Glucose (UA) NEGATIVE, Urine Ketones NEGATIVE, Urine Blood 1+H, Urine Nitrite NEGATIVE, Urine Bilirubin NEGATIVE, Urine Urobilinogen 2.0H, Urine Leukocyte Esterase 2+H, Urine WBC (Auto) 38H, Urine RBC (Auto) 3, Urine Hyaline Casts (Auto) 4, Urine Bacteria (Auto) 3+H, Urine Squamous Epithelial Cells 1, Urine Amorphous Sediment SMALLH, Urine Sperm (Auto) 08/16/18 15:40: POC pH (Misc Panel) 7.205*L, POC Saturated Percent O2 (Misc) 93L, POC pO2 (Misc Panel) 85.0, POC pCO2 (Misc Panel) 63.6*H, POC HCO3 (Misc Panel) 25.1, POC Total CO2 (Misc Panel) 27.0, POC Base Excess (Misc Panel) -3.0L 08/16/18 18:43: Blood Gas Bicarbonate Standard 20.4L, Arterial Blood pH 7.250L, Arterial Blood Partial Pressure CO2 53.4H, Arterial Blood Partial Pressure O2 74.2L, Arterial Blood Total CO2 24.5, Arterial Blood HCO3 22.9, Arterial Blood Base Excess - 4.9L, Arterial Blood Oxygen Saturation 93.0L 08/16/18 21:55: Total Creatine Kinase 136#, Creatine Kinase MB 2.2, Creatine Kinase MB Relative Index 1.62, Troponin I < 0.02# 08/17/18 03:54: Total Creatine Kinase 118, Creatine Kinase MB 2.7, Creatine Kinase MB Relative Index 2.29, Troponin I < 0.02, Nucleated Red Blood Cells % (auto) 0.0, Neutrophils 80H, Band Neutrophils 10, Lymphocytes (Manual) 2L, Monocytes (Manual) 7, Metamyelocytes 1H, Platelet Estimate NORMAL, Red Blood Cell Morphology NORMAL, Anion Gap 8, Glomerular Filtration Rate 41.6L, Blood Urea Nitrogen 35H, Creatinine 1.77H, Sodium Level 141, Potassium Level 4.5#, Chloride Level 110H, Carbon Dioxide Level 23, Calcium Level 8.0L 08/17/18 08:53: Blood Gas Bicarbonate Standard 21.9L, Arterial Blood pH 7.340L, Arterial Blood Partial Pressure CO2 42.9, Arterial Blood Partial Pressure O2 146.5H, Arterial Blood Total CO2 23.9, Arterial Blood HCO3 22.6, Arterial Blood Base Excess - 3.1L, Arterial Blood Oxygen Saturation 98.9 CBC/BMP Laboratory Tests 08/16/18 11:18 Red Blood Count 5.54, Mean Corpuscular Volume 91.7, Mean Corpuscular Hemoglobin 29.1, Mean Corpuscular Hemoglobin Concent 31.7 L, Red Cell Distribution Width 13.6 08/17/18 03:54 Red Blood Count 4.76, Mean Corpuscular Volume 90.8, Mean Corpuscular Hemoglobin 28.4, Mean Corpuscular Hemoglobin Concent 31.3 L, Red Cell Distribution Width 13.8, Calcium Level 8.0 L, Total Creatine Kinase 118 Microbiology Microbiology 08/16/18 Blood Culture, Received Pending 08/16/18 Blood Culture - Preliminary, Resulted 08/16/18 Gram Stain - Final, Resulted 08/16/18 Urine Culture, Resulted Pending Assessment This is a 63 y/o M admitted for a COPD exacerbation and acute prostatitis w/ possible sepsis. Prelim blood cultures are growing GNR and GPC in clusters. He has remained afebrile since yesterday afternoon. His WBC went up a little to 17 today and his Cr went up to 1.8. He has been bladder scanned a few times for a PVR and each time the residual has been 60-70cc or less. I suspect the bacteria causing his symptoms is resistant or not sensitive to cipro, which would explain his lack of response. There does not appear to be any other explanation for him becoming septic from this as he is not in retention, there is no obstructing stone, and there is no prostate abscess. Plan - continue broad spectrum abx per primary team and adjust based on cultures - if symptoms do not continue to improve, would repeat a CT pelvis to look for prostate abscess - patient currently emptying well, but if concern for urinary retention, would recommend placing an 18Fr coude catheter - will continue to follow EVONNE GOLDEN MD Aug 17, 2018 10:39
[2018-08-17 14:34] LABS: CK-MB VALUE MASS 2.6 NG/ML (<3.6); CPK CREATINE PHOSPHOKINASE 106 U/L (39-308); MB/CK RELATIVE INDEX 2.45 (< OR =4); TROPONIN I < 0.02 NG/ML (< 0.10)
[2018-08-18] VITALS (8 sets, daily range): BP systolic 106–142; BP diastolic 58–83
[2018-08-18] MEDS: IPRATROPIUM 0.5MG/ALBUTEROL 2.5MG INH SOL UD 3ML (DUONEB)(J7620) NEB SCH ×4 (01:20→20:00)
[2018-08-18] MEDS: KCL 40MEQ in NS 1000ML 1,000 ML IV SCH ×2 (04:07→08:39)
[2018-08-18] MEDS: PIPERACILLIN/TAZOBACTAM SOD 3.375 GM in D5W MINI-BAG PLUS 50 ML IV SCH ×4 (04:07→23:10)
[2018-08-18 04:42] LABS: BASO % 0.1 % (0.0-1.0); EOS % 0.1 % (0.0-3.0); HEMATOCRIT 36.2 % (42.0-52.0); LYMPH # 1.2 10^3/uL (1.5-4.5); LYMPH % 6.7 % (24.0-44.0); MEAN CORPUSCULAR HEMOGLOBIN 28.5 pg (27.0-33.0); MEAN CORPUSCULAR HGB CONC 31.5 g/dl (32.0-36.5); MEAN CORPUSCULAR VOLUME 90.5 fl (80.0-96.0); MONO # 0.7 10^3/uL (0.0-0.8); NEUTROPHILS # 15.3 10^3/uL (1.8-7.7); NEUTROPHILS % 88.4 % (36.0-66.0); PLATELET COUNT, AUTOMATED 121 10^3/uL (150-450); WHITE BLOOD COUNT 17.4 10^3/uL (4.0-10.0)
[2018-08-18 04:47] LABS: HEMOGLOBIN 11.4 g/dl (13.5-17.5)
[2018-08-18 04:57] LABS: BLOOD UREA NITROGEN 23 MG/DL (7-18); CALCIUM LEVEL 7.9 MG/DL (8.8-10.2); CARBON DIOXIDE LEVEL 22 MEQ/L (21-32); CHLORIDE LEVEL 112 MEQ/L (98-107); CREATININE FOR GFR 0.97 MG/DL (0.70-1.30); GLOMERULAR FILTRATION RATE > 60.0 (>49); GLUCOSE, FASTING 114 MG/DL (70-100); POTASSIUM SERUM 4.5 MEQ/L (3.5-5.1); SODIUM LEVEL 141 MEQ/L (136-145)
[2018-08-18] MEDS: SYMBICORT 160/4.5MCG INHALER 6GM INH SCH ×2 (07:37→20:00)
[2018-08-18] MEDS: TIOTROPIUM INHALER/CAPSULE (SPIRIVA) INH SCH (07:37)
[2018-08-18] MEDS: BUDESONIDE 0.5 MG/2 ML INHALATION SUSPENSION INH SCH ×2 (07:47→20:16)
[2018-08-18] MEDS: FORMOTEROL FUMARATE 20 MCG/2 ML INHALATION SOLUTION (PERFOROMIST) INH SCH ×3 (07:47→20:16)
[2018-08-18] MEDS: TAMSULOSIN 0.4 MG CAP PO SCH (08:37)
[2018-08-18] MEDS: APIXABAN 5 MG TAB (ELIQUIS) PO SCH ×2 (08:37→20:32)
[2018-08-18] MEDS: ALLOPURINOL 300 MG TAB PO SCH (08:37)
[2018-08-18] MEDS: VITAMIN D 1,000 INTERNATIONAL UNITS TABLET PO SCH (08:37)
[2018-08-18] MEDS: ATORVASTATIN 20 MG TAB PO SCH (08:37)
[2018-08-18] MEDS: MAGNESIUM OXIDE 400 MG TAB (MAG-OX) PO SCH ×2 (08:37→20:32)
[2018-08-18] MEDS: CARVedilol 12.5 MG TAB PO SCH ×2 (08:38→20:32)
[2018-08-18] MEDS: AcetaZOLAMIDE 250 MG TAB PO SCH ×2 (08:38→20:32)
[2018-08-18] MEDS: predniSONE 20 MG TAB PO SCH (08:38)
[2018-08-18] MEDS: POTASSIUM CHLORIDE 10 MEQ SR TABLET PO SCH (08:39)
[2018-08-18] MEDS: METOCLOPRAMIDE 10 MG TAB PO SCH ×4 (08:39→20:32)
--- NOTE | 2018-08-18 09:29 | IPNPDOC ---
Subjective Review oF Systems Chief Complaint The patient is a 63-year-old male admitted with a reason for visit of Acute Bacterial Prostatitis. Events since Last Encounter No acute events o/n. Patient still having dysuria, urinary frequency, and prostate discomfort. No fevers or chills in last 24 hrs. Objective Physical Examination General Exam: Alert, Cooperative, No Acute Distress ABDOMEN EXAM: Soft; No: Tenderness Skin Exam: Nl turgor and temperature Neuro Exam: Normal Speech Psych Exam: Mental status NL, Mood NL Vital Signs/I&O Vital Signs Date Time Temp Pulse Resp B/P (MAP) Pulse Ox O2 Delivery O2 Flow Rate FiO2 08/18/18 08:38 83 108/72 08/18/18 04:13 97.6 93 21 08/17/18 23:55 20 08/17/18 16:00 2.0 08/16/18 18:00 NIPPV (BIPAP/CPAP) I&O- Last 24 Hours up to 6 AM 08/18/18 06:00 Intake Total 6640 ml Output Total 1600 ml Balance 5040 ml Laboratory Data Labs 24H Laboratory Tests 2 08/17/18 13:53: Total Creatine Kinase 106, Creatine Kinase MB 2.6, Creatine Kinase MB Relative Index 2.45, Troponin I < 0.02 08/18/18 04:03: Immature Granulocyte % (Auto) 0.7, White Blood Count 17.4H, Red Blood Count 4.00L, Hemoglobin 11.4#L, Hematocrit 36.2L, Mean Corpuscular Volume 90.5, Mean Corpuscular Hemoglobin 28.5, Mean Corpuscular Hemoglobin Concent 31.5L, Red Cell Distribution Width 13.9, Platelet Count 121L, Neutrophils (%) (Auto) 88.4H, Lymphocytes (%) (Auto) 6.7L, Monocytes (%) (Auto) 4.0, Eosinophils (%) (Auto) 0.1, Basophils (%) (Auto) 0.1, Neutrophils # (Auto) 15.3H, Lymphocytes # (Auto) 1.2L, Monocytes # (Auto) 0.7, Eosinophils # (Auto) 0.0, Basophils # (Auto) 0.0, Nucleated Red Blood Cells % (auto) 0.0, Anion Gap 7L, Glomerular Filtration Rate > 60.0, Blood Urea Nitrogen 23H, Creatinine 0.97, Sodium Level 141, Potassium Level 4.5, Chloride Level 112H, Carbon Dioxide Level 22, Calcium Level 7.9L CBC/BMP Laboratory Tests 08/18/18 04:03 Red Blood Count 4.00 L, Mean Corpuscular Volume 90.5, Mean Corpuscular Hemoglobin 28.5, Mean Corpuscular Hemoglobin Concent 31.5 L, Red Cell Distribution Width 13.9, Neutrophils (%) (Auto) 88.4 H, Lymphocytes (%) (Auto) 6.7 L, Monocytes (%) (Auto) 4.0, Eosinophils (%) (Auto) 0.1, Basophils (%) (Auto) 0.1, Neutrophils # (Auto) 15.3 H, Lymphocytes # (Auto) 1.2 L, Monocytes # (Auto) 0.7, Eosinophils # (Auto) 0.0, Basophils # (Auto) 0.0, Calcium Level 7.9 L Microbiology Microbiology 08/16/18 Blood Culture - Preliminary, Resulted No growth after 24 hours . All specim... 08/16/18 Blood Culture - Preliminary, Resulted 08/16/18 Gram Stain - Final, Complete 08/16/18 Urine Culture - Final, Complete Escherichia Coli Assessment/Plan Date Seen The patient was seen on 08/18/18. Patient Summary This is a 63 y/o M admitted for a COPD exacerbation sepsis 2/2 acute prostati tis. His urine culture is growing E coli resistant to fluoroquinolones but sensitive to zosyn. He has been afebrile. His elevated WBC is likely 2/2 steroids for COPD. Cr is trending down. I discussed w/ the patient the need for him to be on antibiotics for 4 wks. The only PO antibiotic available to cover this organism is macrobid and it does not concentrate well in tissue and so he might need to be on IV antibiotics for this after discharge. Plan/VTE VTE Prophylaxis Ordered?: Yes VTE Exclusion Mechanical Proph: N/A:VTE Prophy Ordered Plan - continue zosyn - check another PVR to ensure the patient is still emptying well - patient will need to be on antibiotics for 4 wks for prostatitis - would defer to hospitalist service and/or ID the choice of antibiotics for this EVONNE GOLDEN MD Aug 18, 2018 09:29
[2018-08-18] MEDS ORDERED: NS 1,000 ML IV PRN (09:45)
[2018-08-18] MEDS ORDERED: NS 1,000 ML IV SCH (09:45)
--- NOTE | 2018-08-18 14:56 | IPNPDOC ---
Text Note Date of Service The patient was seen on 08/18/18. NOTE S: patient states less rectal pain with soft/loose stools. still with dysuria and urgency. no back pain. states breathing feels better but intermittently tight. does not like BIPAP. Has home CPAP but "can't get it cleaned well". He is tolerating liquid diet at breakfast. HE is being seen for sepsis due to acute severe prostatitis, COPD exacerbation and probable bacteremia. O:Vitals as below General: on oxygen NC, NAD, AAOx3 HRRR LCTA with scattered wheeze, no rhonchi, no rales, no CVA tenderness Abdomen: obese, NT ND NABS Ext: 1+ edema Tele: afib rate controlled 80-95 A/P: Acute prostatitis with early sepsis - was on cipro; placed on zosyn yesterday on admission (see H&P) ; urology consulted (Dr Quiroga) and records [facility] requested. Blood cultures showing GNR,GPC x 1 ; 2nd culture on same day negative. Will Repeat BC today ; PICC line if repeat BC negative, will need 4 weeks IV antibiotic. Consider changing from zosyn to rocephin tomorrow if WBC and symptoms improving. If dysuria continues, repeat CT scan. Keep bowel regimen on loose side to avoid rectal pain associated with prostatitis . Case management aware and will work with [facility] on outpatient IV antibiotics/infusion. Acute hypercapneic respiratory failure due to COPD exacerbation with early sepsis from acute prostatitis - IVF, hold potassium oral dose, pulmonary plumbing engineer consulted and managing respiratory status; continue diamox (instead of spironolactone because of CO2 retention). D/C bipap and resume home cpap or table top cpap per pulmonology. transfer out of ICU to PCU. [place] - gentle IVF, monitor.- improving COPD exacerbation - steroids, zosyn, nebs, bipap, diamox; currently on po prednisone, begin taper in 2-3 days. ИВАН - non compliant with cpap at home Atrial fibrillation with rapid ventricular rate (RPR).- RESOLVED. Rate is controlled between 80-95 but he has not received coreg due to hypotension. Will give IVF bolus /prn and adjust hold parameters for coreg. Currently on 25mg BID, will decrease to 12.5 BID to avoid further hypotension and once euvolemic or pressures improved, return to 25BID; on eliquis; turosemide on hold. watch for S/S of CHF. Continue telemetry x 48 hours Disposition: anticipate discharge 08/21 or 08/22 Current Medications Acetazolamide (Diamox) 250 mg BID PO Last administered on 08/18/18at 08:38; Start 08/16/18 at 21:00 Albuterol/ Ipratropium (Duoneb (Ipr 0.5mg/Alb 2.5mg)) 3 ml Q2HP PRN NEB SOB/WHEEZING; Start 08/16/18 at 16:15 Albuterol/ Ipratropium (Duoneb (Ipr 0.5mg/Alb 2.5mg)) 3 ml RQ6H NEB Last administered on 08/18/18at 13:37; Start 08/16/18 at 20:00 Allopurinol (Zyloprim) 300 mg DAILY PO Last administered on 08/18/18at 08:37; Start 08/17/18 at 09:00 Apixaban (Eliquis) 5 mg BID PO Last administered on 08/18/18at 08:37; Start 08/16/18 at 21:00 Atorvastatin Calcium (Lipitor) 40 mg DAILY PO Last administered on 08/18/18at 08:37; Start 08/17/18 at 09:00 Budesonide (Pulmicort) 0.5 mg RBID INH Last administered on 08/18/18at 07:47; Start 08/16/18 at 20:00 Budesonide/ Formoterol Fumarate (Symbicort 160/ 4.5mcg) 2 puff RBID INH ; Start 08/16/18 at 20:00; Stop 08/16/18 at 20:00; Status DC Budesonide/ Formoterol Fumarate (Symbicort 160/ 4.5mcg) 2 puff RBID INH Last administered on 08/18/18at 07:37; Start 08/16/18 at 20:00 Carvedilol (COReg) 12.5 mg BID PO ; Start 08/18/18 at 21:00; Status UNV Carvedilol (COReg) 25 mg BID PO ; Start 08/16/18 at 21:00; Stop 08/18/18 at 14:40; Status DC Formoterol Fumarate (Perforomist) 20 mcg RBID INH Last administered on 08/18/18a t 11:35; Start 08/16/18 at 20:00 Home Med (Med Rec Complete!) ASDIRECTED XX ; Start 08/16/18 at 16:00; Stop 08/16/18 at 16:00; Status DC Lorazepam (Ativan) 0.5 mg STAT STAT IV Last administered on 08/16/18 13:23; Start 08/16/18 at 12:39; Stop 08/16/18 at 12:40; Status DC Magnesium Oxide (Mag-Ox) 400 mg BID PO Last administered on 08/18/18 08:37; Start 08/16/18 at 21:00 Metoclopramide HCl (Reglan) 10 mg ACHS PO Last administered on 08/18/18 11:06; Start 08/16/18 at 17:30 Piperacillin Sod/ Tazobactam Sod 3.375 gm/Dextrose 50 ml @ 50 mls/hr Q6H IV Last administered on 08/18/18 10:59; Start 08/16/18 at 17:00 Potassium Chloride/Sodium Chloride 1,000 ml @ 200 mls/hr Q5H IV Last admin istered on 08/18/18at 08:39; Start 08/16/18 at 16:15; Stop 08/18/18 at 09:38; Status DC Potassium Chloride (Micro-K Extencaps) 20 meq DAILY PO ; Start 08/17/18 at 09:00; Status Future hold Prednisone (Deltasone) 40 mg DAILY PO Last administered on 08/18/18at 08:38; Start 08/17/18 at 09:00 Simethicone (Mylicon) 80 mg QID PRN PO GAS PAIN; Start 08/16/18 at 16:15 Sodium Chloride 1,000 ml @ 125 mls/hr Q8H IV Last administered on 08/18/18 10:59; Start 08/18/18 at 09:45; Stop 08/18/18 at 14:35; Status DC Sodium Chloride 1,000 ml @ 250 mls/hr Q4H IV Last administered on 08/16/18at 13:47; Start 08/16/18 at 13:15; Stop 08/16/18 at 19:22; Status DC Sodium Chloride 1,000 ml @ 999 mls/hr BOLUS PRN IV hypotension; Start 08/18/18 at 09:45 Tamsulosin HCl (Flomax) 0.4 mg DAILY PO Last administered on 08/18/18at 08:37; Start 08/16/18 at 09:00 Tiotropium [place] (Spiriva Handihaler) 1 inhalation DAILY INH Last administered on 08/18/18at 07:37; Start 08/17/18 at 09:00 Vitamin D (Vitamin D) 2,000 units DAILY PO Last administered on 08/18/18at 08:37; Start 08/17/18 at 09:00 VS,Fishbone, I+O VS, Fishbone, I+O Laboratory Tests 08/18/18 04:03 Red Blood Count 4.00 L, Mean Corpuscular Volume 90.5, Mean Corpuscular Hemoglobin 28.5, Mean Corpuscular Hemoglobin Concent 31.5 L, Red Cell Distribution Width 13.9, Neutrophils (%) (Auto) 88.4 H, Lymphocytes (%) (Auto) 6.7 L, Monocytes (%) (Auto) 4.0, Eosinophils (%) (Auto) 0.1, Basophils (%) (Auto) 0.1, Neutrophils # (Auto) 15.3 H, Lymphocytes # (Auto) 1.2 L, Monocytes # (Auto) 0.7, Eosinophils # (Auto) 0.0, Basophils # (Auto) 0.0, Calcium Level 7.9 L Vital Signs Date Time Temp Pulse Resp B/P (MAP) Pulse Ox O2 Delivery O2 Flow Rate FiO2 08/18/18 08:38 83 108/72 08/18/18 04:13 97.6 93 21 08/17/18 23:55 20 08/17/18 16:00 2.0 08/16/18 18:00 NIPPV (BIPAP/CPAP) I&O- Last 24 Hours up to 6 AM 08/18/18 06:00 Intake Total 6640 ml Output Total 1600 ml Balance 5040 ml PALLAVI HUA DO Aug 18, 2018 09:40
[2018-08-19] MEDS: IPRATROPIUM 0.5MG/ALBUTEROL 2.5MG INH SOL UD 3ML (DUONEB)(J7620) NEB SCH ×4 (01:10→20:00)
[2018-08-19 04:00] VITALS: BP 127/65
[2018-08-19] MEDS: PIPERACILLIN/TAZOBACTAM SOD 3.375 GM in D5W MINI-BAG PLUS 50 ML IV SCH ×4 (05:39→22:35)
[2018-08-19 05:49] LABS: BASO % 0.2 % (0.0-1.0); EOS % 0.2 % (0.0-3.0); HEMOGLOBIN 11.8 g/dl (13.5-17.5); LYMPH % 8.9 % (24.0-44.0); MEAN CORPUSCULAR HEMOGLOBIN 28.2 pg (27.0-33.0); MEAN CORPUSCULAR HGB CONC 31.1 g/dl (32.0-36.5); MEAN CORPUSCULAR VOLUME 90.7 fl (80.0-96.0); MONO # 0.4 10^3/uL (0.0-0.8); MONO % 3.5 % (0.0-5.0); NEUTROPHILS # 9.6 10^3/uL (1.8-7.7); NEUTROPHILS % 85.9 % (36.0-66.0); PLATELET COUNT, AUTOMATED 111 10^3/uL (150-450); RED BLOOD COUNT 4.19 10^6/uL (4.30-6.10); WHITE BLOOD COUNT 11.2 10^3/uL (4.0-10.0)
[2018-08-19 06:12] LABS: BLOOD UREA NITROGEN 17 MG/DL (7-18); CALCIUM LEVEL 7.9 MG/DL (8.8-10.2); CARBON DIOXIDE LEVEL 26 MEQ/L (21-32); CHLORIDE LEVEL 112 MEQ/L (98-107); CREATININE FOR GFR 0.92 MG/DL (0.70-1.30); GLOMERULAR FILTRATION RATE > 60.0 (>49); GLUCOSE, FASTING 88 MG/DL (70-100); POTASSIUM SERUM 4.3 MEQ/L (3.5-5.1); SODIUM LEVEL 143 MEQ/L (136-145)
[2018-08-19] MEDS: FORMOTEROL FUMARATE 20 MCG/2 ML INHALATION SOLUTION (PERFOROMIST) INH SCH ×2 (07:02→20:35)
[2018-08-19] MEDS: BUDESONIDE 0.5 MG/2 ML INHALATION SUSPENSION INH SCH ×2 (07:02→20:35)
--- NOTE | 2018-08-19 07:37 | IPN ---
DATE: 08/18/2018 SUBJECTIVE: The patient was interviewed and examined in the intensive care unit (ICU) this afternoon. The patient states that he wore his bilevel positive airway pressure (BiPAP) machine overnight from approximately 7:30 p.m. last evening until 6:30 this morning. He does state that this morning he noted to be a little bit short of breath; however, that did improve with subsequent nebulizer treatments. At the time of interview, the patient denied any acute breathing complaints. However, he does still continue to state he has significant discomfort regarding his acute prostatitis. REVIEW OF SYSTEMS: General: The patient is denying any subjective fevers or chills. He does report having an increased appetite since his diet was fully advanced. HEENT: Patient denies any difficulties with his vision or hearing. No difficulty swallowing food or clearing secretions. Respiratory: Reports some shortness of breath, which improves with nebulizer treatments. Denies any audible wheezing. Cardiac: Denies any chest pain/pressure, tachycardia or palpitations. Gastrointestinal (GI): He denies any nausea or vomiting. No reflux. No abdominal pain. The patient does report diarrhea with increased bowel movement frequency. Genitourinary: The patient reports urinating, although he feels it is less than normal. He is having to urinate more frequently and of lesser amounts each time he does so. Neurologic: He denies any numbness or tingling in his hands or his feet. Hematologic: He denies any easy bruising. Skin: No rashes or new skin lesions. EXAMINATION: Vital Signs: Maximum temperature (T max) of 98.4, pulse of 87, respiratory rate of 22, blood pressure 107/59, mean arterial pressure of 75, pulse oximetry is 93% on two liters of oxygen via nasal cannula. General: The patient is interviewed and examined in the ICU this morning. The patient is found to be resting comfortably in bed watching television, in no acute distress, patient appears his stated age. He is able to answer questions appropriately and actively participate in his care. HEENT: Normocephalic, atraumatic. Extraocular muscles are intact. Sclerae do not appear icteric. Mucous membranes are moist. Fair oral hygiene. Neck: No cervical lymphadenopathy, no jugular venous distention (JVD) appreciated. His trachea is midline. Cardiac: The patient is irregular but normal S1 appreciated without any murmurs. Pulmonary: The patient does have diffuse distant wheezing throughout all lung oro, primarily in the bases bilaterally. No rales or rhonchi noted. Abdomen: Soft, nontender, nondistended, obese, protuberant. No masses or hepatosplenomegaly appreciated. No striae noted. Extremities: No edema in the lower extremities. No cyanosis or clubbing. Neurologic: The patient is awake, alert, and oriented times three. No focal neurologic deficits appreciated. No aphasia. No facial drooping. Musculoskeletal: No joint effusions. The patient is able to move all extremities equally. Psychiatric: Mood and affect are appropriate given patient's current medical condition. LABORATORY STUDIES: White cell count of 17.4 down from 17.7, hemoglobin and hematocrit of 11.4 over 36.2. Chemistry: Sodium is 141, potassium 4.5, chloride is 112, BUN is 23, creatinine is 0.97, calcium is 7.9. Microbiology: Blood cultures are pending. Urine gram stain is positive for Escherichia (E) coli, sensitive to Zosyn. IMAGING: No recent imaging studies performed. ASSESSMENT AND PLAN: Terell Mujica is a 63-year-old male, acute prostatitis with a history significant for chronic obstructive pulmonary disease (COPD) and sleep apnea, presented to the hospital with significant rectal pain and fever. CURRENT PROBLEMS: 1. Acute hypercapnic respiratory failure, patient's condition appears to be improving. He reports wearing his BiPAP overnight last night. His vital signs appear stable, saturation appropriate. Plan to be switching patient to tabletop BiPAP when he is transferred out of the ICU later this evening. 2. Asthma/COPD. Patient demonstrates some wheezing on examination. He is receiving DuoNeb treatment. He is currently also receiving maintenance fluids, which may be contributing to his overloaded volume status. We recommend discontinuing maintenance fluids and utilizing normal saline boluses as needed in order to maintain patient's pressure. 3. Obstructive sleep apnea with noncompliance. Discussed at length with patient today the importance of using his BiPAP when he is discharged in order to prevent another occurrence. The patient seemed to be in agreement. In addition, multiple mask types were discussed given that the patient is concerned that his home mask is not able to fit his face appropriately. 4. Prostatitis. The patient is currently being followed by the primary team and urology is on board. We are in agreement with the current plan of continuing Zosyn. 5. Atrial fibrillation with rapid ventricular response (RVR). Defer to primary team. ADDENDUM: (Dictated by Alfonso Jesus DO) DATE: 08/18/2018 ADDENDUM: Mr. Mujica is seen at the bedside. He has some wheezing this morning. He has been getting continuous fluids at up to 200 mL until this morning and now at 125 mL. His blood pressure is adequate. He is making over 40 mL an hour of urine. He did wear his BiPAP overnight. He states he does have a BiPAP machine at home. He states he is using it but then makes excuses about having a new mask and having to clean it, so I am not quite sure that he is actually using his BiPAP at home. Therefore, will switch him to a tabletop here. I do not believe he will be able to necessarily tolerate the pressures supplied by the BiPAP through a nasal only mask. I have recommended full face mask that goes over the bridge of his nose from his prior facial fractures. [facility] I have reviewed the case with the resident. I also believe he should have his maintenance IV fluids stopped as this can precipitate fluid volume overload. If he requires IV fluid supplementation, this should be done in bolus form. I agree with the assessment and plan as outlined by the resident. Addendum dictated: Alfonso Jesus DO 08/18/2018 1428 Addendum transcribed: [email or web address] 08/18/2018 1440 MTDD
[2018-08-19 08:00] VITALS: BP 132/88
[2018-08-19] MEDS: ATORVASTATIN 20 MG TAB PO SCH (08:51)
[2018-08-19] MEDS: METOCLOPRAMIDE 10 MG TAB PO SCH ×5 (08:52→20:03)
[2018-08-19] MEDS: APIXABAN 5 MG TAB (ELIQUIS) PO SCH ×2 (08:52→20:03)
[2018-08-19] MEDS: predniSONE 20 MG TAB PO SCH (08:52)
[2018-08-19] MEDS: VITAMIN D 1,000 INTERNATIONAL UNITS TABLET PO SCH (08:52)
[2018-08-19] MEDS: POTASSIUM CHLORIDE 10 MEQ SR TABLET PO SCH (08:52)
[2018-08-19] MEDS: ALLOPURINOL 300 MG TAB PO SCH (08:53)
[2018-08-19] MEDS: MAGNESIUM OXIDE 400 MG TAB (MAG-OX) PO SCH ×2 (08:53→20:03)
[2018-08-19] MEDS: TAMSULOSIN 0.4 MG CAP PO SCH (08:53)
[2018-08-19] MEDS: AcetaZOLAMIDE 250 MG TAB PO SCH ×2 (08:53→20:02)
[2018-08-19] MEDS: CARVedilol 12.5 MG TAB PO SCH ×2 (08:54→20:02)
[2018-08-19] MEDS ORDERED: ISOVUE-370 76% 100ML VIAL (Q9967) As Ordered ONE (09:54)
--- NOTE | 2018-08-19 11:53 | REP ---
The CT of the abdomen and pelvis with IV contrast, without bowel contrast: Comparisons are 08/16/2018 and 08/11/2016. The patient has a history of testicular carcinoma. There are numerous periaortic surgical clips extending to the right iliac artery, compatible with lymph node dissection. This is unchanged from both prior studies. There is no periaortic lymph node enlargement or right sayra iliac lymph node enlargement. There is no ascites. The prostate is enlarged and has increased size from 08/11/2016 but is similar to 08/16/2018. The pancreatic parenchyma is hypodense as a change from 08/11/2016 but similar to 08/16/2018. This may represent an intra prostatic abscess or mass. No other no para prostatic inflammation or abscess is identified. There is no pelvic ascites. The bladder is unremarkable. There is a fat-containing left inguinal hernia, unchanged from both prior studies. On 08/11/2016 there were two midline anterior fat containing ventral hernias. These are both decreased in size and unchanged from 08/16/2018. There is a vena cava filter, unchanged from both prior studies. There are surgical clips in the mesenteric fat on the right. Unchanged from both prior studies. There is discoid atelectasis in the visualized lower lung oro bilaterally, slightly worsened from 08/16/2018. The hepatic parenchyma is homogeneous. There are tiny calculi along the dependent wall of the gallbladder. These are unchanged. The gallbladder is otherwise unremarkable. There is no biliary duct dilatation. The pancreas and spleen are normal size unremarkable. The adrenals are unremarkable. I suspect there is bilateral renal cortical thinning. This is unchanged. The kidneys are otherwise unremarkable. The abdominal aorta is unremarkable. There are periaortic surgical clips as previously described. There is no bowel distension. Mesentery is unremarkable. Pelvis: There is no ascites or adenopathy. Impression: The prostate is enlarged and hypodense. This may represent an intra prostatic abscess or neoplasm. This is unchanged from 08/16/2018 but is a change from 08/11/2016. There is no para prostatic inflammation or abscess. There is no free fluid or adenopathy in the pelvis. The patient has history of testicular carcinoma. There is evidence for periaortic and right iliac lymph node dissection. This is unchanged. There is a fat-containing left inguinal hernia, unchanged from 08/16/2018. The known midline ventral fat-containing hernias have decreased in size from 08/11/2016. Tiny gallbladder calculi are identified without CT evidence of acute cholecystitis. Electronically Signed by Amando Nuñez MD 08/19/2018 11:45 A
[2018-08-19 12:00] VITALS: BP 104/56
[2018-08-19] MEDS: SYMBICORT 160/4.5MCG INHALER 6GM INH SCH ×2 (13:33→20:35)
[2018-08-19] MEDS: TIOTROPIUM INHALER/CAPSULE (SPIRIVA) INH SCH (13:34)
[2018-08-19] MEDS: PHENAZOPYRIDINE 100 MG TAB PO SCH ×2 (14:34→22:35)
--- NOTE | 2018-08-19 15:12 | IPNPDOC ---
Text Note Date of Service The patient was seen on 08/19/18. NOTE S: patient being seen for prostatitis, sepsis and COPD exacerbation. States feels SOB despite good oxygenation. no cough. States no rectal pain and has loose stools. Still with dysuria but no hematuria seen. no fever. O: Vitals as below General: pleasant, NAD AAOx3 HRRR LCTA with decrease breathsounds at bases, fine scattered wheeze, no rales, no rhonchi Ext: trace edema Abdomen: soft distended, obese, NT, NABS CT Scan images reviewed and discussed with patient - no chagne from 08/16; increase in prostate size or new abscess apparent A/P: Acute prostatitis with early sepsis - was on cipro; placed on zosyn Day 3 - will change to rocephin for E Coli blood and urine cultures. urology consulted (Dr Quiroga) and [facility]. Will need rocephin for 4 weeks. E Coli bacteremia and E Coli UTI PICC line ordered as repeat BC negative, will need 4 weeks IV antibiotic. WBC continues to improve. Case management aware and will work with [facility]. Sepsis due to E Coli bacteremia, E Coli UTI and severe prostatitis Acute hypercapneic respiratory failure due to COPD exacerbation with early sepsis from acute prostatitis - Pulmonary following. nebs, rocephin, diamox, table top cpap (patient non compliant in using cpap with sleeping/day naps). [place] -RESOLVED COPD exacerbation - steroids, rocephin, nebs, . start prednisone taper 08/21 ИВАН - non compliant with cpap at home Atrial fibrillation with rapid ventricular rate (RPR).- RESOLVED. Rate is controlled between 80-95 but he has not received coreg due to hypotension. Will give IVF bolus /prn and adjust hold parameters for coreg. Currently on 25mg BID, will decrease to 12.5 BID to avoid further hypotension and once euvolemic or pressures improved, return to 25BID; on eliquis; turosemide on hold. watch for S/S of CHF. Continue telemetry x 48 hours Disposition: anticipate discharge 08/21 or 08/22 if able to arrange infusion/picc line VS,Fishbone, I+O VS, Fishbone, I+O Laboratory Tests 08/19/18 05:28 Red Blood Count 4.19 L, Mean Corpuscular Volume 90.7, Mean Corpuscular Hemoglobin 28.2, Mean Corpuscular Hemoglobin Concent 31.1 L, Red Cell Distribution Width 14.2, Neutrophils (%) (Auto) 85.9 H, Lymphocytes (%) (Auto) 8.9 L, Monocytes (%) (Auto) 3.5, Eosinophils (%) (Auto) 0.2, Basophils (%) (Auto) 0.2, Neutrophils # (Auto) 9.6 H, Lymphocytes # (Auto) 1.0 L, Monocytes # (Auto) 0.4, Eosinophils # (Auto) 0.0, Basophils # (Auto) 0.0, Calcium Level 7.9 L Vital Signs Date Time Temp Pulse Resp B/P (MAP) Pulse Ox O2 Delivery O2 Flow Rate FiO2 08/19/18 12:00 97.9 80 18 104/56 (72) 95 2.0 08/18/18 04:13 21 08/16/18 18:00 NIPPV (BIPAP/CPAP) I&O- Last 24 Hours up to 6 AM 08/19/18 06:00 Intake Total 4130 ml Output Total 1325 ml Balance 2805 ml PALLAVI HUA DO Aug 19, 2018 15:12
[2018-08-19 16:00] VITALS: BP 125/85
[2018-08-19 20:00] VITALS: BP 108/68
[2018-08-19 23:59] VITALS: BP 127/68
[2018-08-20] MEDS: IPRATROPIUM 0.5MG/ALBUTEROL 2.5MG INH SOL UD 3ML (DUONEB)(J7620) NEB SCH ×4 (01:43→20:00)
[2018-08-20 04:00] VITALS: BP 141/82
[2018-08-20 05:49] LABS: BASO % 0.3 % (0.0-1.0); EOS % 0.4 % (0.0-3.0); HEMATOCRIT 38.7 % (42.0-52.0); HEMOGLOBIN 11.9 g/dl (13.5-17.5); LYMPH # 1.1 10^3/uL (1.5-4.5); LYMPH % 14.9 % (24.0-44.0); MEAN CORPUSCULAR HEMOGLOBIN 27.7 pg (27.0-33.0); MEAN CORPUSCULAR HGB CONC 30.7 g/dl (32.0-36.5); MEAN CORPUSCULAR VOLUME 90.2 fl (80.0-96.0); MONO # 0.3 10^3/uL (0.0-0.8); MONO % 4.4 % (0.0-5.0); NEUTROPHILS # 5.5 10^3/uL (1.8-7.7); NEUTROPHILS % 77.9 % (36.0-66.0); PLATELET COUNT, AUTOMATED 106 10^3/uL (150-450); RED BLOOD COUNT 4.29 10^6/uL (4.30-6.10); WHITE BLOOD COUNT 7.1 10^3/uL (4.0-10.0)
[2018-08-20 06:11] LABS: BLOOD UREA NITROGEN 16 MG/DL (7-18); CALCIUM LEVEL 8.8 MG/DL (8.8-10.2); CARBON DIOXIDE LEVEL 26 MEQ/L (21-32); CHLORIDE LEVEL 109 MEQ/L (98-107); CREATININE FOR GFR 0.89 MG/DL (0.70-1.30); GLOMERULAR FILTRATION RATE > 60.0 (>49); GLUCOSE, FASTING 102 MG/DL (70-100); POTASSIUM SERUM 4.1 MEQ/L (3.5-5.1); SODIUM LEVEL 141 MEQ/L (136-145)
[2018-08-20] MEDS: PHENAZOPYRIDINE 100 MG TAB PO SCH (06:23)
[2018-08-20] MEDS: FORMOTEROL FUMARATE 20 MCG/2 ML INHALATION SOLUTION (PERFOROMIST) INH SCH ×2 (07:43→20:00)
[2018-08-20] MEDS: BUDESONIDE 0.5 MG/2 ML INHALATION SUSPENSION INH SCH ×2 (07:43→20:00)
[2018-08-20] MEDS: SYMBICORT 160/4.5MCG INHALER 6GM INH SCH ×2 (07:44→20:32)
[2018-08-20] MEDS: TIOTROPIUM INHALER/CAPSULE (SPIRIVA) INH SCH (07:45)
[2018-08-20 08:00] VITALS: BP 133/85
[2018-08-20] MEDS: METOCLOPRAMIDE 10 MG TAB PO SCH ×2 (08:00→16:08)
[2018-08-20] MEDS ORDERED: SPIRONOLACTONE 25 MG TAB PO SCH (09:00)
[2018-08-20] MEDS ORDERED: SLF 3 ML SYR IV PRN (09:00)
[2018-08-20] MEDS: cefTRIAXone SOD 2 GM in D5W MINI-BAG PLUS 50 ML IV SCH (09:19)
[2018-08-20] MEDS: TAMSULOSIN 0.4 MG CAP PO SCH (09:20)
[2018-08-20] MEDS: VITAMIN D 1,000 INTERNATIONAL UNITS TABLET PO SCH (09:20)
[2018-08-20] MEDS: APIXABAN 5 MG TAB (ELIQUIS) PO SCH ×2 (09:21→20:20)
[2018-08-20] MEDS: ATORVASTATIN 20 MG TAB PO SCH (09:21)
[2018-08-20] MEDS: POTASSIUM CHLORIDE 10 MEQ SR TABLET PO SCH (09:21)
[2018-08-20] MEDS: AcetaZOLAMIDE 250 MG TAB PO SCH ×2 (09:21→20:20)
[2018-08-20] MEDS: ALLOPURINOL 300 MG TAB PO SCH (09:21)
[2018-08-20] MEDS: CARVedilol 12.5 MG TAB PO SCH ×2 (09:22→20:19)
[2018-08-20] MEDS: predniSONE 20 MG TAB PO SCH (09:22)
[2018-08-20] MEDS: MAGNESIUM OXIDE 400 MG TAB (MAG-OX) PO SCH ×2 (09:22→20:20)
[2018-08-20 12:00] VITALS: BP 145/91
[2018-08-20] MEDS ORDERED: LOMOTIL 2.5MG/0.025MG TABLET PO PRN (12:15)
--- NOTE | 2018-08-20 12:30 | IPNPDOC ---
Text Note Date of Service The patient was seen on 08/20/18. NOTE S: pateint states no improvement of dysuria with dipyrdium. states dysuria p resent but not as severe. continue with diarrhea (off all stool softeners) and stool cultures negative. states feels like legs are more swollen and want to restart his water pills. appetite good, no N, no V. has chronic wheeze and sob. He is being seen for acute prostatitis (sepsis resolved), e coli bacteremia, e coli UTI and COPD exacerbation. O: Vitals as below General pleasant NAD AAOx3, walking around in room, had been sitting by couch in sun HRRR LCTA with scatter wheeze, no rales, no rhonchi Ext: trace edema Abdomen: obese, NT ND , increased bowel sounds TELE: NSR - d/c monitor Labs reviewed and discussed in detail with patient A/P: Acute prostatitis with early sepsis - was on cipro; given zosyn for 3 days and then antibiotic narrowed to rocephin (will need for 4 weeks) based on urine/blood culture. urology consulted E Coli bacteremia and E Coli UTI PICC line ordered as repeat BC negative, will need 4 weeks IV antibiotic. WBC continues to improve. Case management aware and will [facility]. Sepsis due to E Coli bacteremia, E Coli UTI and severe prostatitis - resolved Acute hypercapneic respiratory failure due to COPD exacerbation with early sepsis from acute prostatitis - Pulmonary following. nebs, rocephin, diamox, table top cpap (patient non compliant in using cpap with sleeping/day naps). [place] -RESOLVED - COPD exacerbation - steroids, rocephin, nebs, . start oral prednisone taper 08/21 ИВАН - non compliant with cpap at home Atrial fibrillation with rapid ventricular rate (RPR).- RESOLVED. resume correg 25mg BID and spironolactone 25mg BID. Hold turosemide (patient is on diamox); on eliquis; no signs of CHF. D/C tele Disposition: anticipate discharge 08/21 or 08/22 if able to arrange infusion/[facility] line. [facility] VS,Fishbone, I+O VS, Fishbone, I+O Laboratory Tests 08/20/18 05:19 Red Blood Count 4.29 L, Mean Corpuscular Volume 90.2, Mean Corpuscular Hemoglobin 27.7, Mean Corpuscular Hemoglobin Concent 30.7 L, Red Cell Distribution Width 14.1, Neutrophils (%) (Auto) 77.9 H, Lymphocytes (%) (Auto) 14.9 L, Monocytes (%) (Auto) 4.4, Eosinophils (%) (Auto) 0.4, Basophils (%) (Auto) 0.3, Neutrophils # (Auto) 5.5, Lymphocytes # (Auto) 1.1 L, Monocytes # (Auto) 0.3, Eosinophils # (Auto) 0.0, Basophils # (Auto) 0.0, Calcium Level 8.8 Vital Signs Date Time Temp Pulse Resp B/P (MAP) Pulse Ox O2 Delivery O2 Flow Rate FiO2 08/20/18 12:00 2.0 08/20/18 09:22 83 133/85 08/20/18 08:00 97.2 20 98 08/18/18 04:13 21 08/16/18 18:00 NIPPV (BIPAP/CPAP) I&O- Last 24 Hours up to 6 AM 08/20/18 06:00 Intake Total 2110 ml Output Total 1700 ml Balance 410 ml PALLAVI HUA DO Aug 20, 2018 12:30
[2018-08-20] MEDS: SLF 3 ML SYR IV SCH ×2 (12:54→20:20)
[2018-08-20] MEDS ORDERED: TORSEMIDE 10 MG TABLET PO ONE (13:00)
--- NOTE | 2018-08-20 15:55 | IPN ---
DATE OF VISIT: 08/19/2018 Mr. Mujica is now on postoperative day #4 of his hospitalization for acute bacterial prostatitis. He is still feeling perineal pressure as well as moderate to severe dysuria. He is also complaining of some discomfort when he has a bowel movement, but overall, he says he is feeling better. He is still having difficulty with his breathing. He has been afebrile for the past 24 hours. Vital signs have been stable. His physical examination is unremarkable. LABORATORY STUDIES: Show a white blood cell count of 11.2000, down from 17.4000. BUN and creatinine down to 17/0.9, stable from yesterday, markedly improved from admission. CT scan of the abdomen and pelvis was performed yet again, unchanged from three days prior. There is the mention of a possible prostatic abscess, but this is not clear and the patient is improved clinically. ASSESSMENT: Bacterial prostatitis with persistent voiding symptoms. PLAN: To continue antibiotics, as above, per infectious disease (ID) and internal medicine. We will continue to monitor his labs. Interestingly, there is no mention of prostatic abscess in the CT scan of 08/16/2018, though the interpretation of this most recent scan says the study is unchanged, yet could be consistent with abscess. Again, however, clinically, the patient is markedly improved and we will continue to monitor his voiding. I have also added peridium to his medications to give him some relief for his voiding discomfort.
[2018-08-20 16:00] VITALS: BP 131/87
[2018-08-20] MEDS: PERCOCET 5MG/325MG TAB PO PRN ×2 (16:06→21:40)
[2018-08-20] MEDS: LACTOBACILLUS ACIDOPHILUS CAP (BACID) PO SCH (16:07)
[2018-08-20] MEDS ORDERED: LIDOCAINE 2% 5ML JELLY UROJET TOP PRN (18:15)
[2018-08-20] MEDS: MORPHINE 4 MG/ML 1ML VIAL/SYRINGE (J2270) IV PRN (18:24)
[2018-08-20 20:00] VITALS: BP 125/71
[2018-08-20 23:59] VITALS: BP 142/70
[2018-08-21] MEDS: IPRATROPIUM 0.5MG/ALBUTEROL 2.5MG INH SOL UD 3ML (DUONEB)(J7620) NEB SCH ×4 (02:08→20:00)
[2018-08-21] MEDS: PERCOCET 5MG/325MG TAB PO PRN ×3 (03:59→23:41)
[2018-08-21 04:00] VITALS: BP 123/76
[2018-08-21 05:28] LABS: BASO # 0.1 10^3/uL (0.0-0.2); BASO % 0.6 % (0.0-1.0); EOS % 0.3 % (0.0-3.0); HEMATOCRIT 39.8 % (42.0-52.0); HEMOGLOBIN 12.2 g/dl (13.5-17.5); LYMPH % 13.1 % (24.0-44.0); MEAN CORPUSCULAR HEMOGLOBIN 28.4 pg (27.0-33.0); MEAN CORPUSCULAR HGB CONC 30.7 g/dl (32.0-36.5); MEAN CORPUSCULAR VOLUME 92.6 fl (80.0-96.0); MONO # 0.4 10^3/uL (0.0-0.8); MONO % 5.2 % (0.0-5.0); NEUTROPHILS # 6.1 10^3/uL (1.8-7.7); NEUTROPHILS % 78.6 % (36.0-66.0); PLATELET COUNT, AUTOMATED 118 10^3/uL (150-450); WHITE BLOOD COUNT 7.7 10^3/uL (4.0-10.0)
[2018-08-21 05:49] LABS: BLOOD UREA NITROGEN 18 MG/DL (7-18); CALCIUM LEVEL 8.5 MG/DL (8.8-10.2); CARBON DIOXIDE LEVEL 30 MEQ/L (21-32); CHLORIDE LEVEL 106 MEQ/L (98-107); CREATININE FOR GFR 0.82 MG/DL (0.70-1.30); GLOMERULAR FILTRATION RATE > 60.0 (>49); GLUCOSE, FASTING 106 MG/DL (70-100); SODIUM LEVEL 141 MEQ/L (136-145)
[2018-08-21] MEDS: SLF 3 ML SYR IV SCH ×3 (06:20→21:35)
[2018-08-21] MEDS: SYMBICORT 160/4.5MCG INHALER 6GM INH SCH ×2 (07:08→20:12)
[2018-08-21] MEDS: FORMOTEROL FUMARATE 20 MCG/2 ML INHALATION SOLUTION (PERFOROMIST) INH SCH ×2 (07:08→20:00)
[2018-08-21] MEDS: BUDESONIDE 0.5 MG/2 ML INHALATION SUSPENSION INH SCH ×2 (07:08→20:00)
[2018-08-21 08:00] VITALS: BP 131/84
[2018-08-21] MEDS: predniSONE 20 MG TAB PO SCH (08:28)
[2018-08-21] MEDS: LACTOBACILLUS ACIDOPHILUS CAP (BACID) PO SCH ×2 (08:28→17:58)
[2018-08-21] MEDS: ATORVASTATIN 20 MG TAB PO SCH (08:28)
[2018-08-21] MEDS: CARVedilol 12.5 MG TAB PO SCH ×2 (08:28→21:34)
[2018-08-21] MEDS: APIXABAN 5 MG TAB (ELIQUIS) PO SCH ×2 (08:29→21:34)
[2018-08-21] MEDS: METOCLOPRAMIDE 10 MG TAB PO SCH ×2 (08:29→17:58)
[2018-08-21] MEDS: AcetaZOLAMIDE 250 MG TAB PO SCH ×2 (08:29→21:34)
[2018-08-21] MEDS: TAMSULOSIN 0.4 MG CAP PO SCH (08:29)
[2018-08-21] MEDS: ALLOPURINOL 300 MG TAB PO SCH (08:29)
[2018-08-21] MEDS: VITAMIN D 1,000 INTERNATIONAL UNITS TABLET PO SCH (08:29)
[2018-08-21] MEDS: cefTRIAXone SOD 2 GM in D5W MINI-BAG PLUS 50 ML IV SCH (08:29)
[2018-08-21] MEDS: MAGNESIUM OXIDE 400 MG TAB (MAG-OX) PO SCH ×2 (08:29→21:34)
--- NOTE | 2018-08-21 10:02 | IPNPDOC ---
Text Note Date of Service The patient was seen on 08/21/18. NOTE S: patient states feels better than last night . no dysuria but has "pressure" sensation from salas. no diarrhea or rectal pain. no fever. Salas placed last night with 1400cc residual urine. O: Vitals as below General: pleasant, NAD AAOx3 HRRR (no afib ausculated) LCTA with scant wheeze at base (improved) Ext: trace edema Abdomen obese, soft NT mild distended. labs below reviewed A/P: 63 yo male admitted with sepsis, severe acute prostatitis, COPD exacerbation and afib RVR. He was stabilized in ICU and transferred to PCU. pulmonology and urology consulted. 1) Acute prostatitis with early sepsis - was on cipro prior to admission (RESISTANT ON CULTURE); given zosyn for 3 days and then antibiotic narrowed to rocephin (will need for 4 weeks) based on urine/blood culture. urology consulted and case discussed today. Salas cath placed for urine retention and to be left in at discharge. flomax. He will need to follow up with urologist thru the [facility] (if this can not be arranged then will need to follow up with Dr Quiroga). PICC line placed 08/21/18 and case management working with [facility] to set up daily infusion for 4 weeks rocephin. 2) E Coli bacteremia and E Coli UTI PICC line to be placed 08/21/18. BC negative, will need 4 weeks IV antibiotic for bacteremia and severe prostatitis. WBC continues to improve. Case management aware and will work with [facility] on outpatient IV antibiotics/infusion and dairy nutrition consultant follow up appointments 3) Sepsis due to E Coli bacteremia, E Coli UTI and severe prostatitis - resolved 4) Acute hypercapneic respiratory failure due to COPD exacerbation with early sepsis from acute prostatitis - RESOLVED Pulmonary following. nebs, rocephin, diamox, table top cpap (patient non compliant in using cpap with sleeping/day naps). 5) [place] -RESOLVED - 6) COPD exacerbation - steroids, rocephin, nebs, . start oral prednisone taper 08/21 (was on 40mg prednisone, now on 30mg prednisone) 7) ИВАН - non compliant with cpap at home 8) Atrial fibrillation with rapid ventricular rate (RPR).- RESOLVED. resume correg 25mg BID and spironolactone 25mg BID. Hold turosemide (patient is on diamox); on eliquis; no signs of CHF. Disposition: patient medically stabel for discharge 08/21 but await case management assistance in arranging IV antibitoic infusion and [facility]. VS,Fishbone, I+O VS, Fishbone, I+O Laboratory Tests 08/21/18 05:00 Red Blood Count 4.30, Mean Corpuscular Volume 92.6, Mean Corpuscular Hemoglobin 28.4, Mean Corpuscular Hemoglobin Concent 30.7 L, Red Cell Distribution Width 13.9, Neutrophils (%) (Auto) 78.6 H, Lymphocytes (%) (Auto) 13.1 L, Monocytes (%) (Auto) 5.2 H, Eosinophils (%) (Auto) 0.3, Basophils (%) (Auto) 0.6, Neutro phils # (Auto) 6.1, Lymphocytes # (Auto) 1.0 L, Monocytes # (Auto) 0.4, Eosinophils # (Auto) 0.0, Basophils # (Auto) 0.1, Calcium Level 8.5 L Vital Signs Date Time Temp Pulse Resp B/P (MAP) Pulse Ox O2 Delivery O2 Flow Rate FiO2 08/21/18 09:22 20 08/21/18 08:28 80 131/84 08/21/18 08:00 97.5 99 2.0 08/18/18 04:13 21 08/16/18 18:00 NIPPV (BIPAP/CPAP) I&O- Last 24 Hours up to 6 AM 08/21/18 06:00 Intake Total 890 ml Output Total 4854 ml Balance -3964 ml PALLAVI HUA DO Aug 21, 2018 10:02
[2018-08-21] MEDS ORDERED: LIDOCAINE 1% MDV 20ML VIAL As Ordered ONE (11:43)
[2018-08-21 13:15] VITALS: BP 112/57
[2018-08-21] MEDS ORDERED: SODIUM CHLORIDE 0.9% INJ 10 ML SYR IV PRN (14:30)
[2018-08-21 15:48] LABS: C REACTIVE PROTEIN QUANTITATIV 1.76 MG/DL (0.00-0.30)
[2018-08-21 16:00] VITALS: BP 127/73
--- NOTE | 2018-08-21 16:19 | REP ---
PICC line insertion under ultrasound guidance. The procedure was performed by ABEL Carter, under the direct supervision of Dr. Calloway. The risks and benefits of the procedure were explained to the patient and informed consent was obtained the verbally and written. Directly prior to the start of the procedure, a formal timeout was completed in the procedure room. The left basilic vein was localized using ultrasound guidance. The skin was prepped and draped in the sterile fashion. 1 ml 1% lidocaine was used as a local anesthetic. Using ultrasound guidance the left basilic vein was cannulated and a 0.018 guidewire was inserted and advanced to the SVC using fluoroscopic guidance. The needle was removed and a 4.5] Italian dilator and peel-away sheath was inserted over the guidewire. A 4.5 Italian single lumen catheter was cut to the length of 45 cm. The dilator was removed and the catheter was inserted over the guide wire with the tip ending in the SVC. The peel-away sheath was removed and the catheter was flushed with heparinized saline as per hospital protocol. The catheter was affixed to the skin and a sterile dressing was applied. The patient tolerated the procedure well and there were no immediate complications. 0.3 minutes of fluoroscopy time was utilized for this procedure. Fluoroscopic images are performed with last image hold technology. These images require no additional radiation. Reviewed by ABEL Lind 08/21/2018 02:43 P Electronically Signed by Benjamin Calloway MD 08/21/2018 04:10 P
[2018-08-21] MEDS: SODIUM CHLORIDE 0.9% INJ 10 ML SYR IV SCH (17:58)
[2018-08-21 19:59] VITALS: BP 129/66
[2018-08-21] MEDS: NYSTATIN 100,000 UNITS/GM TOPICAL PWD 15 GM TOP SCH (21:35)
[2018-08-21 23:59] VITALS: BP 122/80
[2018-08-22] MEDS: IPRATROPIUM 0.5MG/ALBUTEROL 2.5MG INH SOL UD 3ML (DUONEB)(J7620) NEB SCH ×4 (01:08→20:00)
[2018-08-22 04:00] VITALS: BP 142/68
[2018-08-22] MEDS: SLF 3 ML SYR IV SCH ×3 (06:00→22:00)
[2018-08-22] MEDS: SODIUM CHLORIDE 0.9% INJ 10 ML SYR IV SCH ×2 (06:14→17:12)
[2018-08-22 06:31] LABS: BASO % 0.3 % (0.0-1.0); EOS # 0.1 10^3/uL (0.0-0.50); EOS % 0.7 % (0.0-3.0); HEMATOCRIT 39.5 % (42.0-52.0); HEMOGLOBIN 12.2 g/dl (13.5-17.5); LYMPH # 1.4 10^3/uL (1.5-4.5); LYMPH % 14.1 % (24.0-44.0); MEAN CORPUSCULAR HGB CONC 30.9 g/dl (32.0-36.5); MEAN CORPUSCULAR VOLUME 90.6 fl (80.0-96.0); MONO # 0.5 10^3/uL (0.0-0.8); MONO % 4.5 % (0.0-5.0); NEUTROPHILS # 7.9 10^3/uL (1.8-7.7); NEUTROPHILS % 77.9 % (36.0-66.0); PLATELET COUNT, AUTOMATED 150 10^3/uL (150-450); RED BLOOD COUNT 4.36 10^6/uL (4.30-6.10); WHITE BLOOD COUNT 10.2 10^3/uL (4.0-10.0)
[2018-08-22 06:57] LABS: BLOOD UREA NITROGEN 15 MG/DL (7-18); CALCIUM LEVEL 8.7 MG/DL (8.8-10.2); CARBON DIOXIDE LEVEL 32 MEQ/L (21-32); CHLORIDE LEVEL 107 MEQ/L (98-107); CREATININE FOR GFR 0.88 MG/DL (0.70-1.30); GLOMERULAR FILTRATION RATE > 60.0 (>49); GLUCOSE, FASTING 81 MG/DL (70-100); POTASSIUM SERUM 3.9 MEQ/L (3.5-5.1); SODIUM LEVEL 142 MEQ/L (136-145)
[2018-08-22] MEDS: BUDESONIDE 0.5 MG/2 ML INHALATION SUSPENSION INH SCH ×2 (07:40→20:00)
[2018-08-22] MEDS: FORMOTEROL FUMARATE 20 MCG/2 ML INHALATION SOLUTION (PERFOROMIST) INH SCH ×2 (07:40→20:00)
[2018-08-22] MEDS: SYMBICORT 160/4.5MCG INHALER 6GM INH SCH ×2 (07:40→20:05)
[2018-08-22 08:00] VITALS: BP 144/66
--- NOTE | 2018-08-22 08:02 | IPNPDOC ---
Date Seen The patient was seen on 08/22/18. Progress Note Subjective: afebrile, but c/o chills overnight. still feels a little weak, but has been ambulating well without falls or assistance. pt continues to have afoley and c/o feeling pressure, but no dysuria, urgency. MRSA screen and repeat ua still pending. s/p PICC 08/21/18, and [facility] 4 weeks iv abx as recommended by ID. Objective: Vitals : pls see below General:obese, no respiratory distress. anicteric, no jaundice. no use of respiratory accessory muscles. pleasant, NAD AAOx3 Heart: RRR S1 S2 no murmurs noted. Lungs: AEBE faint expiratory wheezes b/l Abdomen obese, soft NT mild distended.no rebound, or guarding Ext: trace edema labs , microbiology, imaging studies: pls see below , reviewed A/P: 63 yo male admitted with sepsis, severe acute prostatitis, COPD ex acerbation and afib RVR. He was stabilized in ICU and transferred to PCU. pulmonology and urology consulted. 1) Acute prostatitis with early sepsis - s/p cipro prior to admission (RESISTANT ON CULTURE) -s/p zosyn for 3 days a -changed to iv rocephin (will need for 4 weeks) based on urine/blood culture. - urology consulted -Sifuentes cath placed for urine retention and to be left in at discharge. flomax. He will need to follow [facility] (if this can not be arranged then will need to follow up with Dr Quiroga). - PICC line placed 08/21/18 and case management working with [facility] to [facility] up daily infusion for 4 weeks rocephin. -ID consulted 2) E Coli bacteremia and E Coli UTI -PICC line placed 08/21/18. BC negative - 4 weeks IV antibiotic for bacteremia and severe prostatitis. -changed to iv rocephin (will need for 4 weeks) based on urine/blood culture. - urology consulted -Sifuentes cath placed for urine retention and to be left in at discharge. flomax. He will need to follow up with urologist thru the [facility] (if this can not be arranged then will need to follow up with Dr Quiroga). 3) Sepsis due to E Coli bacteremia, E Coli UTI and severe prostatitis - resolved 4) Acute hypercapneic respiratory failure due to COPD exacerbation with early sepsis from acute prostatitis - RESOLVED -Pulmonary following. nebs, rocephin, diamox, table top cpap (patient non comp liant in using cpap with sleeping/day naps). 5) NEWTON -RESOLVED - 6) COPD exacerbation - steroids, rocephin, nebs, . start oral prednisone taper 08/21 (was on 40mg prednisone, now on 30mg prednisone) 7) ИВАН - non compliant with cpap at home 8) Atrial fibrillation with rapid ventricular rate (RPR).- RESOLVED. resume correg 25mg BID and spironolactone 25mg BID. Hold turosemide (patient is on di amox); on eliquis; no signs of CHF. Disposition: await case management assistance in arranging IV antibitoic infusion and [facility]. VS, I&O, 24H, Fishbone Vital Signs/I&O Vital Signs Date Time Temp Pulse Resp B/P (MAP) Pulse Ox O2 Delivery O2 Flow Rate FiO2 08/22/18 04:00 96.8 87 18 142/68 (92) 96 08/22/18 04:00 2.0 08/18/18 04:13 21 08/16/18 18:00 NIPPV (BIPAP/CPAP) I&O- Last 24 Hours up to 6 AM 08/22/18 05:59 Intake Total 2180 ml Output Total 3400 ml Balance -1220 ml Laboratory Data 24H LABS Laboratory Tests 2 08/22/18 06:13: Immature Granulocyte % (Auto) 2.5, White Blood Count 10.2H, Red Blood Count 4.36, Hemoglobin 12.2L, Hematocrit 39.5L, Mean Corpuscular Volume 90.6, Mean Corpuscular Hemoglobin 28.0, Mean Corpuscular Hemoglobin Concent 30.9L, Red Cell Distribution Width 13.8, Platelet Count 150, Neutrophils (%) (Auto) 77.9H, Lymphocytes (%) (Auto) 14.1L, Monocytes (%) (Auto) 4.5, Eosinophils (%) (Auto) 0.7, Basophils (%) (Auto) 0.3, Neutrophils # (Auto) 7.9H, Lymphocytes # (Auto) 1.4L, Monocytes # (Auto) 0.5, Eosinophils # (Auto) 0.1, Basophils # (Auto) 0.0, Nucleated Red Blood Cells % (auto) 0.0, Anion Gap 3L, Glomerular Filtration Rate > 60.0, Blood Urea Nitrogen 15, Creatinine 0.88, Sodium Level 142, Potassium Level 3.9, Chloride Level 107, Carbon Dioxide Level 32, Calcium Level 8.7L CBC/BMP Laboratory Tests 08/22/18 06:13 Red Blood Count 4.36, Mean Corpuscular Volume 90.6, Mean Corpuscular Hemoglobin 28.0, Mean Corpuscular Hemoglobin Concent 30.9 L, Red Cell Distribution Width 13.8, Neutrophils (%) (Auto) 77.9 H, Lymphocytes (%) (Auto) 14.1 L, Monocytes (%) (Auto) 4.5, Eosinophils (%) (Auto) 0.7, Basophils (%) (Auto) 0.3, Angella trophils # (Auto) 7.9 H, Lymphocytes # (Auto) 1.4 L, Monocytes # (Auto) 0.5, Eosinophils # (Auto) 0.1, Basophils # (Auto) 0.0, Calcium Level 8.7 L Microbiology Microbiology 08/18/18 Blood Culture - Preliminary, Resulted No Growth after 72 hours. All specime... 08/16/18 Blood Culture - Final, Complete NO GROWTH AFTER 5 DAYS 08/16/18 Blood Culture - Final, Complete Escherichia Coli Staphylococcus Saprophyticus Staphylococcus Epidermidis 08/19/18 Gastrointestinal Tract Panel (PCR) - Final, Complete 08/21/18 MRSA Screen, Received Pending 08/21/18 Urine Culture, Received Pending 08/16/18 Gram Stain - Final, Complete 08/16/18 Urine Culture - Final, Complete Escherichia Coli WENDY LIU MD Aug 22, 2018 07:23
[2018-08-22] MEDS: LACTOBACILLUS ACIDOPHILUS CAP (BACID) PO SCH ×2 (08:29→17:11)
[2018-08-22] MEDS: MAGNESIUM OXIDE 400 MG TAB (MAG-OX) PO SCH ×2 (08:30→20:23)
[2018-08-22] MEDS: VITAMIN D 1,000 INTERNATIONAL UNITS TABLET PO SCH (08:30)
[2018-08-22] MEDS: APIXABAN 5 MG TAB (ELIQUIS) PO SCH ×2 (08:30→20:23)
[2018-08-22] MEDS: ATORVASTATIN 20 MG TAB PO SCH (08:30)
[2018-08-22] MEDS: ALLOPURINOL 300 MG TAB PO SCH (08:30)
[2018-08-22] MEDS: predniSONE 10 MG TAB PO SCH (08:30)
[2018-08-22] MEDS: TAMSULOSIN 0.4 MG CAP PO SCH (08:31)
[2018-08-22] MEDS: METOCLOPRAMIDE 10 MG TAB PO SCH ×2 (08:31→17:11)
[2018-08-22] MEDS: CARVedilol 12.5 MG TAB PO SCH ×2 (08:31→20:23)
[2018-08-22] MEDS: AcetaZOLAMIDE 250 MG TAB PO SCH ×2 (08:31→20:23)
[2018-08-22] MEDS: cefTRIAXone SOD 2 GM in D5W MINI-BAG PLUS 50 ML IV SCH (08:31)
[2018-08-22] MEDS: NYSTATIN 100,000 UNITS/GM TOPICAL PWD 15 GM TOP SCH ×2 (08:32→20:24)
[2018-08-22] MEDS: PERCOCET 5MG/325MG TAB PO PRN ×3 (09:36→23:43)
[2018-08-22] MEDS ORDERED: LOMOTIL 2.5MG/0.025MG TABLET PO PRN (10:30)
[2018-08-22] MEDS ORDERED: CEFD300CAP PO (10:32)
[2018-08-22] MEDS ORDERED: FLUCONAZOLE 100 MG TAB PO ONE (16:30)
--- NOTE | 2018-08-22 16:55 | IPN ---
DATE: 08/22/2018 INFECTIOUS DISEASE CONSULTATION REASON FOR CONSULTATION: Acute bacterial prostatitis with Escherichia (E) coli sepsis and antibiotic choice. HISTORY OF PRESENT ILLNESS: Mr. Mujica is a 63-year-old gentleman, a patient of the [facility]. He has a history of recurrent chronic obstructive pulmonary disease (COPD) exacerbation for which he was hospitalized three times in the past year. The patient went to the [facility] for pelvic pain, difficulty urinating. He was given ciprofloxacin at the [facility] in [place]. The patient did not feel any better. CT of the abdomen and pelvis showed induration and inflammation around the prostate. The patient then developed fever and chills and presented the emergency room (ER) with worsening shortness of breath, acute kidney injury and atrial fibrillation (a fib) with rapid ventricular response. Systolic blood pressure was 100 on admission. He was admitted to the intensive care unit (ICU). The patient was started on cefepime, then was de-escalated to ceftriaxone on August 20, 2018 to August 22, 2018. His blood culture was positive for E-coli and urine culture was positive for E-coli. The blood culture also had Staphylococcus saprophyticus and Staphylococcus epidermidis, which are both contaminants. E-coli was resistant to levofloxacin and Bactrim. The patient now has a Sifuentes catheter. He was seen in consultation with Dr. Ruchi Quiroga who recommended 4 weeks of antibiotics, and if no oral oxygen available, then an intravenous (IV) antibiotic would be recommended. The primary care team decided to put a peripherally inserted central catheter (PICC) line and since his benefits come from the [facility], the [facility] recommended infectious disease consultation. PAST MEDICAL HISTORY: Significant for severe COPD, atrial fibrillation, history of pulmonary embolism with an inferior vena cava (IVC) filter, testicular cancer status post orchiectomy and lymph node dissection in 2018, hernia repair, cardiac catheterization, history of nonsustained ventricular tachycardia. SOCIAL HISTORY: He lives with a roommate, does not smoke. Drinks alcohol occasionally. FAMILY HISTORY: Father had a myocardial infarction ([place]). ALLERGIES: No known drug allergies. MEDICATIONS: - probiotics one tablet by mouth twice a day - Coreg 25 mg by mouth twice a day - prednisone 30 mg by mouth daily - Diamox 250 mg by mouth twice a day - albuterol nebs every 6 hours as needed - Eliquis 5 mg by mouth twice a day - Flomax 0.4 mg by mouth daily - atorvastatin 40 mg by mouth daily - Lomotil one tablet by mouth three times a day as needed for diarrhea - magnesium oxide 400 mg by mouth twice a day - morphine as needed - Rocephin 2 grams IV every 24 hours - budesonide 0.5 mg inhaled twice a day LABORATORY DATA: White count 7.7, hemoglobin 12.2, hematocrit 39.8, platelets 118, 78% neutrophils, 13% lymphs, 5% monocytes. His admission white count was 17.7 with 25% bands. Sodium 141, potassium 4, chloride 106, bicarbonate 30, BUN 18, creatinine 0.82, glucose 106, calcium 8.5, CRP 1.76. Blood culture had Staphylococcus saprophyticus, Staphylococcus epidermidis. Urine culture had E-coli resistant to levofloxacin and Bactrim. Repeat blood culture on August 16, 2018, second set done at 1508 hours was negative and August 18, 2018 was negative. Gastrointestinal (GI) panel was negative. On physical exam, he is a sick-looking gentleman in no acute distress. Maximum temperature (T max) on admission was 102, currently 97.4, pulse 68, respirations 18, blood pressure 127/73, oxygen saturation (O2 sat) 94% on 2 liters nasal cannula. Heart: Normal S1, S2 irregular. No murmurs appreciated. Lungs: Diminished breath sounds bilaterally, decreased air entry. Abdomen: Morbidly obese, soft, nontender. Extremities: Trace edema bilaterally. Back: No costovertebral angle (CVA) tenderness. Genitourinary (): Sifuentes catheter in place draining clear urine. Skin: Erythema in the groin area involving extending all the way to the abdomen. IMPRESSION: This is a 63-year-old gentleman with acute prostatitis, E-coli sepsis with same E-coli and blood in urine, failed outpatient quinolone therapy due to the fact that the E-coli was resistant. The patient has clinically improved on IV cephalosporin. He has received cefepime and ceftriaxone with good response. His white count has normalized, and his temperature has resolved. The patient could be switched to a third-generation cephalosporin such as cefdinir 300 mg by mouth twice a day, to finish a 6-week course for prostatitis. PLAN The patient has already received 1 week of therapy, and therefore, he will need another 5 weeks of treatment. I do not see any indication for home IV antibiotics since he clinically stabilized, there are oral options that are available. Discontinue IV PICC line on discharge. Please call the [facility] to get him cefdinir 300 mg by mouth twice a day for 5 weeks. The patient is not able to afford his own antibiotics, he will have to pay out of pocket. Continue with physical therapy. The patient also has candidiasis in the groin area with severe erythema. He will be given nystatin powder. MTDD
[2018-08-22] MEDS ORDERED: cefTRIAXone SOD 2 GM in D5W MINI-BAG PLUS 50 ML IV SCH (17:00)
--- NOTE | 2018-08-22 17:19 | IPN ---
DATE: 08/22/2018 Mr. Mujica continues to complain of severe pelvic pressure. He also has purulent discharge draining from the penis. He has not had any fever or chills since August 17, 2018. He has no nausea, vomiting or diarrhea. His shortness of breath is at baseline. On physical exam, temperature is 97.7, pulse 82, respirations 18, oxygen saturation (O2 sat) 94% on 2 liters nasal cannula. Heart: Normal S1, S2. No murmurs. Lungs: Diminished breath sounds. Abdomen is soft, obese, nontender. Penile tip is tender. There is purulent discharge. Sifuentes catheter in place, scarring with erythema bilaterally with satellite lesions suggestive of candidiasis. Extremity was +1 pitting edema. LABORATORY DATA: White count is 10.2, hemoglobin 12.2, hematocrit 39.5, platelets 150, improving. Sodium 142, potassium 3.9, chloride 107, bicarbonate 32, BUN 15, creatinine 0.88, glucose 81, calcium 8.7, CRP 1.76. Urine culture repeated on 08/21/2018 is pending. Methicillin-resistant Staphylococcus aureus (MRSA) screen is pending. IMPRESSION: 1. Acute bacterial prostatitis with persistent purulent drainage from the penis, on IV Rocephin through his PICC line. 2. Pelvic pain, still very disabling to him with walking. 3. Severe chronic obstructive pulmonary disease, currently on prednisone 30 mg daily and nebs. PLAN: Continue with IV Rocephin while the patient is in the hospital. Once he is cleared from physical therapy (PT) and is ready to discharge home, then remove the PICC line and switch him to cefdinir 600 mg by mouth daily for a total of 5 more weeks, a total of 6 weeks of therapy for bacterial prostatitis. Fluconazole 200 mg times one dose was also ordered cutaneous candidiasis and then continue with Nystatin powder.
[2018-08-22 20:00] VITALS: BP 128/76
[2018-08-22] MEDS: MORPHINE 4 MG/ML 1ML VIAL/SYRINGE (J2270) IV PRN (20:17)
[2018-08-22] MEDS ORDERED: CEFDINIR 300 MG CAP (OMNICEF) PO SCH (21:00)
[2018-08-22 23:59] VITALS: BP 158/79
[2018-08-23] MEDS: IPRATROPIUM 0.5MG/ALBUTEROL 2.5MG INH SOL UD 3ML (DUONEB)(J7620) NEB SCH ×4 (02:29→20:00)
[2018-08-23 04:00] VITALS: BP 120/67
[2018-08-23] MEDS: PERCOCET 5MG/325MG TAB PO PRN ×4 (04:56→20:52)
[2018-08-23] MEDS: SODIUM CHLORIDE 0.9% INJ 10 ML SYR IV SCH ×2 (05:12→18:34)
[2018-08-23] MEDS: SLF 3 ML SYR IV SCH ×4 (05:13→21:42)
[2018-08-23 05:31] LABS: BASO % 0.4 % (0.0-1.0); EOS # 0.1 10^3/uL (0.0-0.50); EOS % 0.8 % (0.0-3.0); HEMATOCRIT 38.6 % (42.0-52.0); HEMOGLOBIN 11.9 g/dl (13.5-17.5); LYMPH # 1.4 10^3/uL (1.5-4.5); LYMPH % 16.2 % (24.0-44.0); MEAN CORPUSCULAR HEMOGLOBIN 28.2 pg (27.0-33.0); MEAN CORPUSCULAR HGB CONC 30.8 g/dl (32.0-36.5); MEAN CORPUSCULAR VOLUME 91.5 fl (80.0-96.0); MONO # 0.5 10^3/uL (0.0-0.8); MONO % 5.6 % (0.0-5.0); NEUTROPHILS # 6.1 10^3/uL (1.8-7.7); NEUTROPHILS % 72.9 % (36.0-66.0); PLATELET COUNT, AUTOMATED 156 10^3/uL (150-450); RED BLOOD COUNT 4.22 10^6/uL (4.30-6.10); WHITE BLOOD COUNT 8.4 10^3/uL (4.0-10.0)
[2018-08-23 06:04] LABS: BLOOD UREA NITROGEN 16 MG/DL (7-18); CALCIUM LEVEL 8.6 MG/DL (8.8-10.2); CARBON DIOXIDE LEVEL 31 MEQ/L (21-32); CHLORIDE LEVEL 107 MEQ/L (98-107); CREATININE FOR GFR 0.73 MG/DL (0.70-1.30); GLOMERULAR FILTRATION RATE > 60.0 (>49); GLUCOSE, FASTING 91 MG/DL (70-100); POTASSIUM SERUM 3.7 MEQ/L (3.5-5.1); SODIUM LEVEL 142 MEQ/L (136-145)
[2018-08-23] MEDS: SYMBICORT 160/4.5MCG INHALER 6GM INH SCH ×2 (07:32→20:38)
[2018-08-23] MEDS: BUDESONIDE 0.5 MG/2 ML INHALATION SUSPENSION INH SCH ×2 (07:32→20:00)
[2018-08-23] MEDS: FORMOTEROL FUMARATE 20 MCG/2 ML INHALATION SOLUTION (PERFOROMIST) INH SCH ×2 (07:32→20:00)
--- NOTE | 2018-08-23 07:50 | IPNPDOC ---
Date Seen The patient was seen on 08/23/18. Progress Note Subjective: Overnight, hypothermic at 96, but no chills and white count normal. pt c/o penile tip pain yesterday, urologist made aware, and pain meds given with relief. Pt worried about keeping salas at discharge, but aware that urologist recommended this. He could not work with physical therapy yesterday due to penile pain when he moves. He is more cooperative today since the pain is better. 2/10 pain scale this morning. Objective: Vitals : pls see below General:obese, no respiratory distress. anicteric, no jaundice. no use of respiratory accessory muscles. pleasant, NAD AAOx3 Heart: RRR S1 S2 no murmurs noted. Lungs: AEBE faint expiratory wheezes b/l Abdomen obese, soft NT mild distended.no rebound, or guarding Ext: trace edema labs , microbiology, imaging studies: pls see below , reviewed A/P: 63 yo male admitted with sepsis, severe acute prostatitis, COPD exacerbation and afib RVR. He was stabilized in ICU and transferred to PCU. pulmonology and urology consulted. 1) Acute prostatitis with early sepsis - s/p cipro prior to admission (RESISTANT ON CULTURE) -s/p zosyn for 3 days a -s/p iv rocephin based on urine/blood culture. - urology consulted -Salas cath placed for urine retention and to be left in at discharge. flomax. He will need to [facility] (if this can not be arranged then will need to follow up with Dr Quiroga). - PICC line placed 08/21/18 -ID consulted:4 weeks of omnicef po 2) E Coli bacteremia and E Coli UTI -PICC line placed 08/21/18. BC negative s/p cipro prior to admission (RESISTANT ON CULTURE) -s/p zosyn for 3 days a -s/p iv rocephin based on urine/blood culture. - urology consulted -Salas cath placed for urine retention and to be left in at discharge. flomax. He will need to follow up [facility] (if this can not be arranged then will need to follow up with Dr Quiroga). - PICC line placed 08/21/18 -ID consulted:4 weeks of omnicef po 3) Sepsis due to E Coli bacteremia, E Coli UTI and severe prostatitis - resolved 4) Acute hypercapneic respiratory failure due to COPD exacerbation with early sepsis from acute prostatitis - RESOLVED -Pulmonary following. nebs, s/p rocephin, diamox, table top cpap (patient non compliant in using cpap with sleeping/day naps). 5) NEWTON -RESOLVED - 6) COPD exacerbation - steroids, s/p rocephin, nebs, . oral prednisone taper 08/21 (was on 40mg prednisone, now on 30mg prednisone) 7) ИВАН - non compliant with cpap at home 8) Atrial fibrillation with rapid ventricular rate (RPR).- RESOLVED. resume correg 25mg BID and spironolactone 25mg BID. Hold turosemide (patient is on diamox); on eliquis; no signs of CHF. Disposition: await physical therapy clearance. VS, I&O, 24H, Fishbone Vital Signs/I&O Vital Signs Date Time Temp Pulse Resp B/P (MAP) Pulse Ox O2 Delivery O2 Flow Rate FiO2 08/23/18 04:56 20 08/23/18 04:00 97.0 72 120/67 (84) 96 2.0 08/18/18 04:13 21 I&O- Last 24 Hours up to 6 AM 08/23/18 06:00 Intake Total 2230 ml Output Total 1750 ml Balance 480 ml Laboratory Data 24H LABS Laboratory Tests 2 08/23/18 05:12: Immature Granulocyte % (Auto) 4.1H, White Blood Count 8.4, Red Blood Count 4.22L, Hemoglobin 11.9L, Hematocrit 38.6L, Mean Corpuscular Volume 91.5, Mean Corpuscular Hemoglobin 28.2, Mean Corpuscular Hemoglobin Concent 30.8L, Red Cell Distribution Width 14.1, Platelet Count 156, Neutrophils (%) (Auto) 72.9H, Lymphocytes (%) (Auto) 16.2L, Monocytes (%) (Auto) 5.6H, Eosinophils (%) (Auto) 0.8, Basophils (%) (Auto) 0.4, Neutrophils # (Auto) 6.1, Lymphocytes # (Auto) 1.4L, Monocytes # (Auto) 0.5, Eosinophils # (Auto) 0.1, Basophils # (Auto) 0.0, Nucleated Red Blood Cells % (auto) 0.0, Anion Gap 4L, Glomerular Filtration Rate > 60.0, Blood Urea Nitrogen 16, Creatinine 0.73, Sodium Level 142, Potassium Level 3.7, Chloride Level 107, Carbon Dioxide Level 31, Calcium Level 8.6L CBC/BMP Laboratory Tests 08/23/18 05:12 Red Blood Count 4.22 L, Mean Corpuscular Volume 91.5, Mean Corpuscular Hemoglobin 28.2, Mean Corpuscular Hemoglobin Concent 30.8 L, Red Cell Distribution Width 14.1, Neutrophils (%) (Auto) 72.9 H, Lymphocytes (%) (Auto) 16.2 L, Monocytes (%) (Auto) 5.6 H, Eosinophils (%) (Auto) 0.8, Basophils (%) (Auto) 0.4, Neutrophils # (Auto) 6.1, Lymphocytes # (Auto) 1.4 L, Monocytes # (Auto) 0.5, Eosinophils # (Auto) 0.1, Basophils # (Auto) 0.0, Calcium Level 8.6 L Microbiology Microbiology 08/18/18 Blood Culture - Preliminary, Resulted No Growth after 72 hours. All specime... 08/16/18 Blood Culture - Final, Complete NO GROWTH AFTER 5 DAYS 08/16/18 Blood Culture - Final, Complete Escherichia Coli Staphylococcus Saprophyticus Staphylococcus Epidermidis 08/19/18 Gastrointestinal Tract Panel (PCR) - Final, Complete 08/21/18 MRSA Screen, Received Pending 08/21/18 Urine Culture - Final, Complete 08/16/18 Gram Stain - Final, Complete 08/16/18 Urine Culture - Final, Complete Escherichia Coli WENDY LIU MD Aug 23, 2018 07:50
[2018-08-23 08:00] VITALS: BP 118/76
[2018-08-23] MEDS ORDERED: cefTRIAXone SOD 2 GM in D5W MINI-BAG PLUS 50 ML IV SCH (08:00)
[2018-08-23] MEDS: AcetaZOLAMIDE 250 MG TAB PO SCH ×2 (09:37→22:04)
[2018-08-23] MEDS: LACTOBACILLUS ACIDOPHILUS CAP (BACID) PO SCH ×2 (09:37→18:34)
[2018-08-23] MEDS: predniSONE 10 MG TAB PO SCH (09:38)
[2018-08-23] MEDS: VITAMIN D 1,000 INTERNATIONAL UNITS TABLET PO SCH (09:38)
[2018-08-23] MEDS: ATORVASTATIN 20 MG TAB PO SCH (09:38)
[2018-08-23] MEDS: TAMSULOSIN 0.4 MG CAP PO SCH (09:38)
[2018-08-23] MEDS: ALLOPURINOL 300 MG TAB PO SCH (09:39)
[2018-08-23] MEDS: METOCLOPRAMIDE 10 MG TAB PO SCH ×2 (09:39→18:34)
[2018-08-23] MEDS: APIXABAN 5 MG TAB (ELIQUIS) PO SCH ×2 (09:39→20:50)
[2018-08-23] MEDS: CARVedilol 12.5 MG TAB PO SCH ×2 (09:39→20:49)
[2018-08-23] MEDS: MAGNESIUM OXIDE 400 MG TAB (MAG-OX) PO SCH ×2 (09:39→20:50)
[2018-08-23] MEDS: NYSTATIN 100,000 UNITS/GM TOPICAL PWD 15 GM TOP SCH ×2 (09:40→20:51)
[2018-08-23] MEDS: CEFDINIR 300 MG CAP (OMNICEF) PO SCH (11:35)
[2018-08-23] MEDS ORDERED: CEFD300CAP PO (11:40)
[2018-08-23] MEDS ORDERED: NYAM10003 TOP (11:48)
[2018-08-23] MEDS ORDERED: FLOM0.4C39 PO (11:48)
[2018-08-23] MEDS ORDERED: RISATAB3 PO (11:48)
[2018-08-23] MEDS ORDERED: LIDO2URO TOP (11:48)
[2018-08-23 16:00] VITALS: BP 116/69
[2018-08-23 19:50] VITALS: BP 133/85
[2018-08-24] MEDS: PERCOCET 5MG/325MG TAB PO PRN ×3 (01:37→12:54)
[2018-08-24] MEDS: IPRATROPIUM 0.5MG/ALBUTEROL 2.5MG INH SOL UD 3ML (DUONEB)(J7620) NEB SCH ×3 (02:52→12:43)
[2018-08-24] MEDS ORDERED: LIDOCAINE 2% JELLY 30 ML TOP PRN (03:00)
[2018-08-24] MEDS: SODIUM CHLORIDE 0.9% INJ 10 ML SYR IV SCH (05:31)
[2018-08-24 06:00] VITALS: BP 119/68
[2018-08-24] MEDS: FORMOTEROL FUMARATE 20 MCG/2 ML INHALATION SOLUTION (PERFOROMIST) INH SCH (07:30)
[2018-08-24] MEDS: BUDESONIDE 0.5 MG/2 ML INHALATION SUSPENSION INH SCH (07:30)
[2018-08-24] MEDS: METOCLOPRAMIDE 10 MG TAB PO SCH (08:00)
[2018-08-24] MEDS: predniSONE 10 MG TAB PO SCH (09:33)
[2018-08-24] MEDS: ALLOPURINOL 300 MG TAB PO SCH (09:33)
[2018-08-24] MEDS: AcetaZOLAMIDE 250 MG TAB PO SCH (09:33)
[2018-08-24] MEDS: VITAMIN D 1,000 INTERNATIONAL UNITS TABLET PO SCH (09:33)
[2018-08-24] MEDS: ATORVASTATIN 20 MG TAB PO SCH (09:33)
[2018-08-24] MEDS: TAMSULOSIN 0.4 MG CAP PO SCH (09:33)
[2018-08-24] MEDS: CEFDINIR 300 MG CAP (OMNICEF) PO SCH (09:33)
[2018-08-24] MEDS: LACTOBACILLUS ACIDOPHILUS CAP (BACID) PO SCH (09:33)
[2018-08-24] MEDS: MAGNESIUM OXIDE 400 MG TAB (MAG-OX) PO SCH (09:34)
[2018-08-24] MEDS: APIXABAN 5 MG TAB (ELIQUIS) PO SCH (09:34)
[2018-08-24 09:36] VITALS: BP 147/79
[2018-08-24] MEDS: CARVedilol 12.5 MG TAB PO SCH (09:36)
[2018-08-24] MEDS: NYSTATIN 100,000 UNITS/GM TOPICAL PWD 15 GM TOP SCH (09:37)
--- NOTE | 2018-08-24 10:42 | IPNPDOC ---
Date Seen The patient was seen on 08/24/18. Progress Note Progress Note Subjective: Pt was worried about going home with salas catheter, but salas care still needs to be provided prior to discharge. no other issues overnight. Per ID,omnicef to 600 mg daily for 5more weeks for a total of 6weeks duration. s/p one dose of diflucan .PFS consulted to assist in having [facility] [place] overnight deliver to pt's home address. pt passed HSE and may be discharged home tomorrow. Objective: Vitals : pls see below General:obese, no respiratory distress. anicteric, no jaundice. no use of respiratory accessory muscles. pleasant, NAD AAOx3 Heart: RRR S1 S2 no murmurs noted. Lungs: AEBE faint expiratory wheezes b/l Abdomen obese, soft NT mild distended.no rebound, or guarding Ext: trace edema labs , microbiology, imaging studies: pls see below , reviewed A/P: 63 yo male admitted with sepsis, severe acute prostatitis, COPD exacerbation and afib RVR. He was stabilized in ICU and transferred to PCU. pulmonology and urology consulted. 1) Acute prostatitis with early sepsis - s/p cipro prior to admission (RESISTANT ON CULTURE) -s/p zosyn for 3 days a -s/p iv rocephin based on urine/blood culture. - urology consulted -Salas cath placed for urine retention and to be left in at discharge. flomax. He will need to follow up with urologist thru the ID (if this can not be arranged then will need to follow up with Dr Quiroga). - PICC line placed 08/21/18 -ID consulted:5 weeks of omnicef po for total of 6wks abx 2) E Coli bacteremia and E Coli UTI -PICC line placed 08/21/18. BC negative s/p cipro prior to admission (RESISTANT ON CULTURE) -s/p zosyn for 3 days a -s/p iv rocephin based on urine/blood culture. - urology consulted -Salas cath placed for urine retention and to be left in at discharge. flomax. He will need to follow up with urologist thru the [facility] (if this can not be arranged then will need to follow up with Dr Quiroga). - PICC line placed 08/21/18 -ID consulted:5 weeks of omnicef po for total of 6wks abx 3) Sepsis due to E Coli bacteremia, E Coli UTI and severe prostatitis - resolved 4) Acute hypercapneic respiratory failure due to COPD exacerbation with early sepsis from acute prostatitis - RESOLVED -Pulmonary following. nebs, s/p rocephin, diamox, table top cpap (patient non compliant in using cpap with sleeping/day naps). 5) NE[place]ON -RESOLVED - 6) COPD exacerbation - steroids, s/p rocephin, nebs, . oral prednisone taper 08/21 (was on 40mg prednisone, now on 30mg prednisone) 7) ИВАН - non compliant with cpap at home 8) Atrial fibrillation with rapid ventricular rate (RPR).- RESOLVED. resume correg 25mg BID and spironolactone 25mg BID. Hold turosemide (patient is on diamox); on eliquis; no signs of CHF. disposition: ok to dc once meds are finalized. VS, I&O, 24H, Fishbone Vital Signs/I&O Vital Signs Date Time Temp Pulse Resp B/P (MAP) Pulse Ox O2 Delivery O2 Flow Rate FiO2 08/24/18 09:37 2.0 08/24/18 09:36 84 147/79 08/24/18 07:14 20 08/24/18 06:00 97.4 98 08/18/18 04:13 21 I&O- Last 24 Hours up to 6 AM 08/24/18 06:00 Intake Total 1940 ml Output Total 2175 ml Balance -235 ml Laboratory Data Microbiology Microbiology 08/18/18 Blood Culture - Final, Complete NO GROWTH AFTER 5 DAYS 08/16/18 Blood Culture - Final, Complete NO GROWTH AFTER 5 DAYS 08/16/18 Blood Culture - Final, Complete Escherichia Coli Staphylococcus Saprophyticus Staphylococcus Epidermidis 08/19/18 Gastrointestinal Tract Panel (PCR) - Final, Complete 08/21/18 MRSA Screen - Final, Complete 08/21/18 Urine Culture - Final, Complete 08/16/18 Gram Stain - Final, Complete 08/16/18 Urine Culture - Final, Complete Escherichia Coli WENDY LIU MD Aug 24, 2018 10:42
[2018-08-24] MEDS ORDERED: PRED10TA2 PO (10:44)
[2018-08-24] MEDS ORDERED: DIPH2.5T15 PO (11:01)
[2018-08-24] MEDS: SYMBICORT 160/4.5MCG INHALER 6GM INH SCH (12:43)
[2018-08-24] MEDS: SLF 3 ML SYR IV SCH ×2 (12:53→12:54)
[2018-08-24 14:00] VITALS: BP 113/72
--- NOTE | 2018-08-28 13:12 | DS.PDOC ---
Discharge Summary General Date of Admission Aug 16, 2018 at 16:05 Date of Discharge August 24, 2018 Discharge Summary Consultants: Dr. Miguel-infectious disease Dr. Quiroga-urologist Dr. Ruiz-insurance loss control surveyor Discharge Diagnoses; Sepsis Acute prostatitis E coli bacteremia Copd exacerbation morbid obesity bmi 41.9 [place] ИВАН Chronic AFib Discharge medications: pls see below Discharge instructions: fu with Dr. Quiroga urology in 4 weeks. pcp 1 wk. salas at hospital discharge History of Presenting Illness: 63 male with recurrent chronic obstructive pulmonary disease (COPD) exacerbation for which he was hospitalized three times in the past year. The patient went to the [facility] for pelvic pain, difficulty urinating. He was given ciprofloxacin at the [facility] in [place]. The patient did not feel any better. CT of the abdomen and pelvis showed induration and inflammation around the prostate. The patient then developed fever and chills and presented the emergency room (ER) with worsening shortness of breath, acute kidney injury and atrial fibrillation (a fib) with rapid ventricular response. Systolic blood pressure was 100 on admission. He was admitted to the intensive care unit (ICU). The patient was started on cefepime, then was de-escalated to ceftriaxone on August 20, 2018 to August 22, 2018. His blood culture was positive for E-coli and urine culture was positive for E-coli. The blood culture also had Staphylococcus saprophyticus and Staphylococcus epidermidis, which are both contaminants. E-coli was resistant to levofloxacin and Bactrim. The patient now has a Salas catheter. He was seen in consultation with Dr. Ruchi Quiroga who recommended 4 weeks of antibiotics, and if no oral oxygen available, then an intravenous (IV) antibiotic would be recommended. Hospital Course: 1) Acute prostatitis with early sepsis - s/p cipro prior to admission (RESISTANT ON CULTURE) -s/p zosyn for 3 days a -s/p iv rocephin based on urine/blood culture. - urology consulted -Salas cath placed for urine retention and to be left in at discharge. flomax. He will need to follow up with urologist thru the [facility] (if this can not be arranged then will need to follow up with Dr Quiroga). - PICC line placed 08/21/18 -ID consulted:5 weeks of omnicef po for total of 6wks abx 2) E Coli bacteremia and E Coli UTI -PICC line placed 08/21/18. BC negative s/p cipro prior to admission (RESISTANT ON CULTURE) -s/p zosyn for 3 days a -s/p iv rocephin based on urine/blood culture. - urology consulted -Salas cath placed for urine retention and to be left in at discharge. flomax. [facility] (if [facility] can not be arranged then will need to follow up with Dr Quiroga). - PICC line placed 08/21/18 -ID consulted:5 weeks of omnicef po for total of 6wks abx 3) Sepsis due to E Coli bacteremia, E Coli UTI and severe prostatitis - resolved 4) Acute hypercapneic respiratory failure due to COPD exacerbation with early sepsis from acute prostatitis - RESOLVED -Pulmonary following. nebs, s/p rocephin, diamox, table top cpap (patient non compliant in using cpap with sleeping/day naps). 5) NEWTON -RESOLVED - 6) COPD exacerbation - steroids, s/p rocephin, nebs, . oral prednisone taper 08/21 (was on 40mg prednisone, now on 30mg prednisone) 7) ИВАН - non compliant with cpap at home 8) Atrial fibrillation with rapid ventricular rate (RPR).- RESOLVED. resume correg 25mg BID and spironolactone 25mg BID. Hold turosemide (patient is on diamox); on eliquis; no signs of CHF. disposition: ok to dc once meds are finalized. Physical Examination: Vitals : pls see below General:obese, no respiratory distress. anicteric, no jaundice. no use of respiratory accessory muscles. pleasant, NAD AAOx3 Heart: RRR S1 S2 no murmurs noted. Lungs: AEBE faint expiratory wheezes b/l Abdomen obese, soft NT mild distended.no rebound, or guarding Ext: trace edema labs , microbiology, imaging studies: pls see below , Time spent on discharge: 32 min Vital Signs/I&Os Vital Signs Date Time Temp Pulse Resp B/P (MAP) Pulse Ox O2 Delivery O2 Flow Rate FiO2 08/24/18 14:00 97.2 87 18 113/72 (86) 94 2.0 Microbiology Microbiology 08/18/18 Blood Culture - Final, Complete NO GROWTH AFTER 5 DAYS 08/19/18 Gastrointestinal Tract Panel (PCR) - Final, Complete 08/21/18 MRSA Screen - Final, Complete 08/21/18 Urine Culture - Final, Complete Discharge Medications Scheduled Acetazolamide (Acetazolamide) 250 Mg Tablet, 250 MG PO BID, (Reported) Allopurinol (Zyloprim) 300 Mg Tablet, 300 MG PO DAILY, (Reported) Apixaban (Eliquis) 5 Mg Tab, 5 MG PO BID, (Reported) Atorvastatin Calcium (Atorvastatin Calcium) 80 Mg Tablet, 40 MG PO DAILY, (Reported) Budesonide/Formoterol (Symbicort 160-4.5 Mcg Inhaler) 60 Puff/Inhaler Aers, 2 PUFF INH BID, (Reported) Carvedilol (Carvedilol) 25 Mg Tablet, 25 MG PO BID, (Reported) Cefdinir (Cefdinir) 300 Mg Capsule, 600 MG PO DAILY Cholecalciferol (Vitamin D3) (Vitamin D3) 1,000 Unit Tablet, 2,000 UNIT PO DAILY, (Reported) L.acidoph/L.bulg/B.bif/S.therm (Claudia-Bid Caplet) 1 Each Tablet, 1 EA PO BIDWM Magnesium Oxide (Magnesium Oxide) 400 Mg Tablet, 400 MG PO BID, (Reported) Metoclopramide HCl (Reglan) 10 Mg Tablet, 10 MG PO ACHS, (Reported) Nystatin (Nyamyc) 15 Gm Powder, 0 DOSE TOP BID Pantoprazole Sodium (Pantoprazole Sodium) 40 Mg Tablet.dr, 40 MG PO DAILY, (Reported) Potassium Chloride (Potassium Chloride) 10 Meq Capsule.er, 20 MEQ PO DAILY, (Reported) Prednisone (Prednisone) 10 Mg Tablet, 10 MG PO TAPER Take 4 tabs daily x 3 days, then 3 tabs daily x 3 days, then 2 tabs daily x 3 days, then 1 tab daily x 3 days and stop Spironolactone (Spironolactone) 25 Mg Tablet, 25 MG PO BID, (Reported) Tamsulosin HCl (Flomax) 0.4 Mg Capsule, 0.4 MG PO DAILY Tiotropium [place] (Spiriva) 18 Mcg Cap.w.dev, 1 INHALATION INH DAILY, (Reported) INSTRUCTED TO REPEAT INHALATION A SECOND TIME WITH SAME CAPSULE TO ENSURE FULL DOSE DELIVERY Torsemide (Torsemide) 20 Mg Tablet, 40 MG PO DAILY, (Reported) Scheduled PRN Albuterol Sulf (Albuterol Sulfate) 2.5 Mg/3 Ml Nebu, 2.5 MG INH Q6H PRN for SHORTNESS OF BREATH, (Reported) Albuterol Sulfate (Ventolin Hfa) 108 Mcg/Act Aer, 2 PUFF INH QID PRN for SHORTNESS OF BREATH, (Reported) Carboxymethylcellulose Sodium (Refresh Tears) 15 Ml Drops, 1 DROP OU QID PRN for DRY EYES, (Reported) Diclofenac Sodium (Diclofenac Sodium) 1% 100GM Gel..gram., 2 GM TOP TID PRN for PAIN, (Reported) Diphenoxylate HCl/Atropine (Diphenoxylate-Atrop 2.5-0.025) 1 Each Tablet, 1 EA PO TID PRN for DIARRHEA Fluticasone Propionate (Fluticasone Propionate) 15.8 Ml [place].susp, 2 SPR NARES DAILY PRN for CONGESTION, (Reported) Ipratropium/Albuterol Sulfate (Iprat-Albut 0.5-3(2.5) mg/3 ml) 1 Will Will, 1 WILL INH QID PRN for SHORTNESS OF BREATH, (Reported) Lidocaine HCl (Lidocaine HCl) 5 Ml Jel.pf.jennifer, 0 DOSE TOP ASDIRECTED PRN for FOR EACH CATHETERIZATION Simethicone (Simethicone) 80 Mg Tab.chew, 80 MG PO QID PRN for GAS PAIN, (Reported) Miscellaneous Medications [Patient Comment] , (Reported) [facility] Allergies Coded Allergies: No Known Drug Allergies (Verified Allergy, Unknown, 08/16/18) WENDY LIU MD Aug 28, 2018 13:08
== END 2018-08-24 16:42 | disposition home or self-care (01) | DRG 871 ==
LOC: M ED 11:09 → M ED INP 16:05 → M ICU 18:18 → M PCU 08-18 16:30 → M MSPAV 08-23 19:50
PROVIDERS: ADMIT Family Medicine; ATTEND General Practice
PROC: 02HV33Z Insertion of Infusion Device into Superior Vena Cava, Percutaneous Approach (ICD-10-PCS; principal; 2018-08-21)
DX: A41.51 Sepsis due to Escherichia coli [E. coli] (principal); J96.02 Acute respiratory failure with hypercapnia; N41.0 Acute prostatitis; N17.9 Acute kidney failure, unspecified; J44.1 Chronic obstructive pulmonary disease with (acute) exacerbation; Z68.41 Body mass index [BMI] 40.0-44.9, adult; N39.0 Urinary tract infection, site not specified; I27.20 Pulmonary hypertension, unspecified; R65.20 Severe sepsis without septic shock; I48.91 Unspecified atrial fibrillation; E66.01 Morbid (severe) obesity due to excess calories; G47.33 Obstructive sleep apnea (adult) (pediatric); Z91.19 Patient's noncompliance with other medical treatment and regimen; Z79.899 Other long term (current) drug therapy; Z79.01 Long term (current) use of anticoagulants; N18.9 Chronic kidney disease, unspecified; Z86.711 Personal history of pulmonary embolism; Z85.47 Personal history of malignant neoplasm of testis; Z95.2 Presence of prosthetic heart valve

== ENCOUNTER 2018-11-08 08:17 | Inpatient (IN) | payer OTHER ==
[~2018-11-08] VITALS: Ht 190.5 cm; Wt 150.0 kg
[~2018-11-08 08:17] MED LIST changes: +ATOR80TA59 PO; +CEFD300CAP PO; +CIPR500T3 PO; +D-10TAB3 PO; +DICL1GEL3 TOP; +DIPH2.5T15 PO; +FLOM0.4C39 PO; +FLUT15.820 NARES; +LIDO2URO TOP; +MAGN400T2 PO; +NYAM10003 TOP; +PANT-23 PO; +PATIENT COMMENT; +POTA10CA32 PO; +REFR0.5D8 OU; +REGL10TA6 PO; +RISATAB3 PO; +TRAM50TA2 PO; +ZYLO300T6 PO
[2018-11-08] MEDS ORDERED: ONDANSETRON 4MG/2ML VIAL (J2405) IV ONE (08:30)
[2018-11-08] MEDS ORDERED: NS 1,000 ML IV ONE (08:30)
[2018-11-08] MEDS ORDERED: PANTOPRAZOLE 40MG INJ (PROTONIX) (C9113) IV ONE (08:45)
[2018-11-08] MEDS: ALLOPURINOL 300 MG TAB PO SCH (09:00)
[2018-11-08] MEDS: CARVedilol 12.5 MG TAB PO SCH ×2 (09:00→21:58)
--- NOTE | 2018-11-08 09:15 | REP ---
ABDOMINAL SERIES: Supine erect views of the abdomen demonstrate no free air. There is moderate distention of the stomach with air and fluid. Moderately dilated small bowel loops are seen in the abdomen. A very small amount of air is seen distally in the colon and rectum. Findings are suspicious for small bowel obstruction. Multiple metallic clips are scattered throughout the abdomen and pelvis. IVC filter is noted at the L3 level. An accompanying view of the chest demonstrates mild cardiomegaly. I see no acute infiltrate. Mediastinal silhouette is unchanged since prior study of 08/16/2018. IMPRESSION: Moderately dilated small bowel in the abdomen suspicious for small bowel obstruction. Electronically Signed by Amando Cedeno MD 11/09/2018 08:04 A
[2018-11-08] MEDS: MORPHINE 2 MG/ML 1ML SYRINGE (J2270) IV PRN ×2 (09:21→11:39)
[2018-11-08] MEDS: PANTOPRAZOLE SODIUM 40 MG in D5W 50 ML IV SCH ×3 (09:22→21:57)
[2018-11-08 09:25] LABS: BASO # 0.1 10^3/uL (0.0-0.2); BASO % 0.3 % (0.0-1.0); EOS % 0.2 % (0.0-3.0); HEMOGLOBIN 16.2 g/dl (13.5-17.5); LYMPH # 1.1 10^3/uL (1.5-5.0); LYMPH % 7.1 % (24.0-44.0); MEAN CORPUSCULAR HEMOGLOBIN 29.7 pg (27.0-33.0); MEAN CORPUSCULAR HGB CONC 33.1 g/dl (32.0-36.5); MEAN CORPUSCULAR VOLUME 89.7 fl (80.0-96.0); MONO # 1.4 10^3/uL (0.0-0.8); MONO % 9.2 % (0.0-5.0); NEUTROPHILS # 12.4 10^3/uL (1.5-8.5); NEUTROPHILS % 82.8 % (36.0-66.0); PLATELET COUNT, AUTOMATED 238 10^3/uL (150-450); RED BLOOD COUNT 5.46 10^6/uL (4.30-6.10)
[2018-11-08 09:41] LABS: INR 1.04; PROTHROMBIN TIME 13.3 SECONDS (11.8-14.0)
[2018-11-08 09:54] LABS: ALBUMIN 3.7 GM/DL (3.2-5.2); ALT/SGPT 17 U/L (12-78); BILIRUBIN,DIRECT 0.2 MG/DL (0.0-0.2); BILIRUBIN,TOTAL 0.6 MG/DL (0.2-1.0); BLOOD UREA NITROGEN 28 MG/DL (7-18); CALCIUM LEVEL 9.5 MG/DL (8.8-10.2); CARBON DIOXIDE LEVEL 37 MEQ/L (21-32); CHLORIDE LEVEL 98 MEQ/L (98-107); CK-MB VALUE MASS 2.1 NG/ML (<3.6); CPK CREATINE PHOSPHOKINASE 36 U/L (39-308); CREATININE FOR GFR 1.24 MG/DL (0.70-1.30); GLOMERULAR FILTRATION RATE > 60.0 (>49); GLUCOSE, FASTING 135 MG/DL (70-100); MB/CK RELATIVE INDEX 5.83 (< OR =4); POTASSIUM SERUM 3.3 MEQ/L (3.5-5.1); SODIUM LEVEL 143 MEQ/L (136-145); TOTAL PROTEIN 6.3 GM/DL (6.4-8.2); TROPONIN I < 0.02 NG/ML (< 0.10)
[2018-11-08] MEDS ORDERED: IPRATROPIUM 0.5MG/ALBUTEROL 2.5MG INH SOL UD 3ML (DUONEB)(J7620) NEB PRN (12:45)
[2018-11-08] MEDS ORDERED: POTA10TA16 PO (13:09)
--- NOTE | 2018-11-08 14:19 | CR.PDOC ---
General Surgery Consultation Date of Consultation 11/08/18 History and Physical CONSULT REPORT FOR: Hospitalist service REASON FOR CONSULTATION: Abdominal pain and distention, small bowel obstruction HISTORY OF PRESENT ILLNESS: Patient is a 63-year-old male, morbidly obese with a BMI of 40.1 and presented to the emergency room today with an overnight history of sudden onset of severe generalized abdominal pain, multiple episodes of vomiting. Patient reports he was in usual state of health up until roughly about 9 PM last night when the episode started. He had a bowel movement yesterday normal. He reports periods of constipation. He denies any prior episodes of bowel obstruction. His a significant history of a full expiratory laparotomy incision for periaortic lymph node dissection for prior history of testicular cancer in the . He subsequently developed hernias on that side and in 2017 had emergent laparoscopic repair of the hernias where he had some incarcerated omental tissue. Patient also reports that a few months ago he was supposed to have a bariatric procedure but the bariatric surgeon had to abandon the case as he was not able to gain entry into the abdomen. He tried performing a laparoscopy and also made a small supraumbilical incision and was not able to enter the abdomen at all. In the emergency room and x-ray shows possibility of bowel obstruction. He had a nasogastric tube placed and so far has drained more than 2 canisters of brownish thick fluid. He reports improvement but still is having some discomfort. He reports passing clear urine on arrival to the emergency room but does not look colored or concentrated. He denies fevers or chills. He has a history of DVT and PE any sticking Eliquis. Last time he took Eliquis was yesterday evening. PAST MEDICAL HISTORY: 1. Morbid obesity 2. Testicular cancer status post right orchiectomy, periaortic lymph node dissection. 3. Diabetes 4. PAST SURGICAL HISTORY: INCLUDES: 1. Periaortic lymph node dissection via a large midline incision 2. Left inguinal hernia repair with polypropylene mesh in 2007 3. Laparoscopy, laparoscopic incisional hernia repair in 2017 4. Attempted laparoscopy, bariatric surgery which was abandoned due to difficulty of entry into the abdomen. PREVIOUS ANESTHESIA REACTIONS: Denies ALLERGIES: Please see below. FAMILY HISTORY: Noncontributory. HOME MEDICATIONS: Please see below. REVIEW OF SYSTEMS: GENERAL: Patient denies any abnormal weight loss. He was supposed to have bariatric surgery for attempted weight loss but was not successful. Symptoms are acute in onset this started last night. HEENT: Denies blurred vision and double vision. Denies ear symptoms. Denies hoarseness. NECK: Denies any neck pain CARDIOVASCULAR: Denies chest pain and palpitations. MUSCULOSKELETAL: Denies arthralgias, back pain and thrombophlebitis. SKIN: Denies rash. NEUROLOGIC: Denies headache, stroke and transient ischemic attack. PSYCHIATRIC: Denies anxiety and depression. ENDOCRINE: Denies thyroid disease. HEMATOLOGY/ONCOLOGY: Patient on Eliquis for prior history of DVT and PE HEART: Denies any chest pains, palpitations, paroxysmal dyspnea, orthopnea. PULMONARY: Denies chronic cough, dyspnea and wheezing. GASTROINTESTINAL: See HPI. GENITOURINARY: Denies dysuria, frequency, hematuria and nocturia. ENDOCRINE: Denies polydipsia, polyphagia, polyuria, heat or cold intolerance. INFECTIOUS: Denies any recent upper respiratory tract infection, UTI, need for use of antibiotics. NUTRITION: Fair appetite. PHYSICAL EXAMINATION: VITALS SIGNS: Please see below. GENERAL APPEARANCE: Patient seen sitting up in bed with a nasogastric tube in place. Nasogastric tube is draining thick brownish fluid. Mildly uncomfortable both from the nasogastric tube and abdominal distention. SKIN: Warm and dry. HEENT: Normocephalic, atraumatic. [place] palpebral conjunctiva, anicteric sclerae. Lips and mucosa appear dry. Nasogastric tube in place and noted to be working. Per patient report had already gone through 2 canisters since placement of the nasogastric tube NECK: Short, supple neck. LUNGS: Clear to auscultation bilaterally. No wheezing appreciated. HEART: No chest wall abnormalities. Regular rate and rhythm with no murmurs ap preciated. ABDOMEN: Abdomen is morbidly obese, markedly rounded, tensely distended, no gross tenderness on palpation. He has a large midline incision from the xiphisternum to below the umbilicus. Thin abdominal wall. I did not notice any appreciable herniation at the incision site. Minimal discomfort on deep palpation with no rebound or guarding. . EXTREMITIES: Both lower extremities with pitting edema right more than the left ANCILLARIES: . LABORATORY DATA: Please see below. IMAGING STUDIES: Abdominal x-ray .Moderately dilated small bowel in the abdomen suspicious for small bowel obstruction. IMPRESSION AND PLAN: Small bowel obstruction most likely secondary to adhesions Morbid obesity History of PE and DVT on anticoagulation Patient clinically has small bowel obstruction and has a nasogastric tube in place. He reports some improvement with the nasogastric tube decompression but clearly has not fully decompressed yet. Abdominal exam shows discomfort though no gross signs of peritonitis. He just had an x-ray that shows evidence for bowel obstruction but no gross perforation. He has mild leukocytosis on his labs and some mild elevation of the BUN. Patient also is on Eliquis and he took this last night. At this point I see no gross indication for emergent surgery but certainly the amount of drainage from nasogastric tube is of concern. I would like to get a CT of the abdomen and pelvis though with the amount of drainage via her cathing I would wait it out until tomorrow morning to adequately try to decompress the abdomen. He reports that he had a recent failed attempt at bariatric surgery as the surgeon who was performing the case was not able to enter the abdomen which does not portend well for an emergent or urgent surgery for the bowel obstruction if this does not resolve or if we are concern for threatened bowel order clear signs of peritonitis. At this point continue to hold the Eliquis. We will get a CT of the abdomen and pelvis in the morning with contrast to see how the contrast flows through to the intestine. Also suggest increasing IV fluids 150 ML's an hour as he is being tired and he has drained a lot from the nasogastric tube already. He does not look to be overtly dehydrated. I will follow up closely with the medical service during his admission. . Vital Signs Vital Signs Date Time Temp Pulse Resp B/P (MAP) Pulse Ox O2 Delivery O2 Flow Rate FiO2 11/08/18 11:49 16 11/08/18 08:27 97.2 102 137/86 (103) 94 Nasal Cannula 2.5 Laboratory Data Labs 24H Laboratory Tests 2 11/08/18 09:07: Lactic Acid Level 1.5 11/08/18 09:08: Immature Granulocyte % (Auto) 0.4, White Blood Count 15.0H, Red Blood Count 5.4 6, Hemoglobin 16.2, Hematocrit 49.0, Mean Corpuscular Volume 89.7, Mean Corpuscular Hemoglobin 29.7, Mean Corpuscular Hemoglobin Concent 33.1, Red Cell Distribution Width 14.1, Platelet Count 238, Neutrophils (%) (Auto) 82.8H, Lymphocytes (%) (Auto) 7.1L, Monocytes (%) (Auto) 9.2H, Eosinophils (%) (Auto) 0.2, Basophils (%) (Auto) 0.3, Neutrophils # (Auto) 12.4H, Lymphocytes # (Auto) 1.1L, Monocytes # (Auto) 1.4H, Eosinophils # (Auto) 0.0, Basophils # (Auto) 0.1, Nucleated Red Blood Cells % (auto) 0.0, Prothrombin Time 13.3, Prothromb Time International Ratio 1.04, Activated Partial Thromboplast Time 23.0L, Anion Gap 8, Glomerular Filtration Rate > 60.0, Calcium Level 9.5, Aspartate Amino Transf (AST/SGOT) 7, Alanine Aminotransferase (ALT/SGPT) 17, Alkaline Phosphatase 76, Total Bilirubin 0.6, Direct Bilirubin 0.2, Total Creatine Kinase 36L, Creatine Kinase MB 2.1, Creatine Kinase MB Relative Index 5.83H, Troponin I < 0.02, Total Protein 6.3L, Albumin 3.7, Albumin/Globulin Ratio 1.42, Ethyl Alcohol Level < 0.003 CBC/BMP Laboratory Tests 11/08/18 09:08 Red Blood Count 5.46, Mean Corpuscular Volume 89.7, Mean Corpuscular Hemoglobin 29.7, Mean Corpuscular Hemoglobin Concent 33.1, Red Cell Distribution Width 14.1, Neutrophils (%) (Auto) 82.8 H, Lymphocytes (%) (Auto) 7.1 L, Monocytes (%) (Auto) 9.2 H, Eosinophils (%) (Auto) 0.2, Basophils (%) (Auto) 0.3, Neutrophils # (Auto) 12.4 H, Lymphocytes # (Auto) 1.1 L, Monocytes # (Auto) 1.4 H, Eosinophils # (Auto) 0.0, Basophils # (Auto) 0.1 Microbiology Microbiology 11/08/18 Blood Culture, Received Pending 11/08/18 Blood Culture, Received Pending Home Medications Scheduled Acetazolamide (Acetazolamide) 250 Mg Tablet, 250 MG PO BID, (Reported) Allopurinol (Zyloprim) 300 Mg Tablet, 300 MG PO DAILY, (Reported) Apixaban (Eliquis) 5 Mg Tab, 5 MG PO BID, (Reported) Atorvastatin Calcium (Atorvastatin Calcium) 80 Mg Tablet, 40 MG PO DAILY, (Reported) Budesonide/Formoterol (Symbicort 160-4.5 Mcg Inhaler) 60 Puff/Inhaler Aers, 2 PUFF INH BID, (Reported) Carvedilol (Carvedilol) 25 Mg Tablet, 25 MG PO BID, (Reported) Cholecalciferol (Vitamin D3) (Vitamin D3) 1,000 Unit Tablet, 2,000 UNIT PO DAILY, (Reported) Magnesium Oxide (Magnesium Oxide) 400 Mg Tablet, 400 MG PO BID, (Reported) Potassium Chloride (Potassium Chloride) 10 Meq Tab.er.prt, 30 MEQ PO DAILY, (Reported) Spironolactone (Spironolactone) 25 Mg Tablet, 25 MG PO BID, (Reported) Tiotropium [place] (Spiriva) 18 Mcg Cap.w.dev, 1 CAP INH DAILY, (Reported) INSTRUCTED TO REPEAT INHALATION A SECOND TIME WITH SAME CAPSULE TO ENSURE FULL DOSE DELIVERY Torsemide (Torsemide) 20 Mg Tablet, 40 MG PO DAILY, (Reported) Scheduled PRN Albuterol Sulf (Albuterol Sulfate) 2.5 Mg/3 Ml Nebu, 2.5 MG INH Q6H PRN for SHORTNESS OF BREATH, (Reported) Albuterol Sulfate (Ventolin Hfa) 108 Mcg/Act Aer, 2 PUFF INH QID PRN for SHORTNESS OF BREATH, (Reported) Carboxymethylcellulose Sodium (Refresh Tears) 15 Ml Drops, 1 DROP OU QID PRN for DRY EYES, (Reported) Fluticasone Propionate (Fluticasone Propionate) 15.8 Ml [place].susp, 2 SPR NARES DAILY PRN for CONGESTION, (Reported) Ipratropium/Albuterol Sulfate (Iprat-Albut 0.5-3(2.5) mg/3 ml) 1 Micheline Micheline, 1 VIAL INH QID PRN for SHORTNESS OF BREATH, (Reported) Allergies Coded Allergies: No Known Drug Allergies (Verified Allergy, Unknown, 08/16/18) DARSHAN RIBEIRO MD Nov 08, 2018 14:19
--- NOTE | 2018-11-08 14:56 | HPE ---
DATE OF ADMISSION: 11/08/2018 [facility] CARE PROVID[facility] ATTENDING PHYSICIAN: Hospitalist/Dr. Rodríguez HYDRAMATIC SPECIALIST: Dr. Salvador PRINCIPAL DIAGNOSIS: Small bowel obstruction. HISTORY: Terell Mujica is a 63-year-old patient of the [facility] who is being admitted to the hospitalist service with small bowel obstruction. The case has been discussed with Dr. Salvador in the emergency room, who will be the surgical scrub technician. The patient was admitted with small bowel obstruction. He has had abdominal pain, nausea, vomiting. He has an nasogastric (NG) tube placed. He has already drained 3 of nasogastric suctioning and feels better. He has history of chronic obstructive pulmonary disease (COPD). He continues to smoke. He has had frequent hospitalizations for COPD exacerbation. He was admitted to this hospital 07/2018 with acute bacterial prostatitis with sepsis. He has a history of atrial fibrillation, on Eliquis for thromboembolic prophylaxis. He has severe COPD. Dr. Castañeda used to follow him from [facility] until he started to be followed primarily by the [facility]. Back in 2014, he had an FEV1 of 1.5, FEV1/FVC ratio COPD. Has obstructive sleep apnea (ИВАН). He does not wear his continuous positive airway pressure (CPAP), but he should. History of cardiomyopathy. Echocardiogram 02/2018 showed ejection fraction of 50%, mildly dilated left ventricle, mildly dilated left atrium, dilated aortic root, elevated right-sided pressures. He has a history of pulmonary embolism and has an inferior vena cava (IVC) filter in place. Hypertensive heart disease. Testicular cancer with orchiectomy and lymph node resection in 2018. Inguinal hernia repair and a history of nonsustained ventricular tachycardia (V-TACH). ALLERGIES: None known. SOCIAL HISTORY: Lives with a roommate. Active smoker and occasional alcohol use. FAMILY HISTORY: Father had a myocardial infarction ([place]). MEDICATIONS: - acetazolamide 250 mg twice a day - albuterol via nebulizer every 6 hours as needed - allopurinol 300 mg daily - Eliquis 5 mg twice a day - atorvastatin 40 mg daily - Symbicort 160/4.5 mg twice a day - carvedilol 25 mg twice a day - vitamin D3 - DuoNeb as needed - magnesium oxide 400 mg twice a day - potassium chloride 20 mEq daily - spironolactone 25 mg twice a day - tamsulosin 0.4 mg daily - torsemide 40 mg daily - diclofenac 1% gel three times a day as needed for pain - Protonix 40 mg daily - probiotic twice a day ALLERGIES: None known. REVIEW OF SYSTEMS: Denies rectal bleeding, epistaxis, hematemesis, fever, chills. PHYSICAL EXAMINATION: Vital signs per emergency room (ER) flow sheet. He is alert, conversant. Nasogastric tube in place. Visiting with family members, talking to [facility] on the [facility]. Pupils equal, round, and reactive to light. Tympanic membranes (TMs) normal. Neck: No masses. Lungs: Decreased breath sounds but clear. Heart: Regular rate and rhythm. No murmur. Abdomen: Obese, nontender, no masses, distended diffusely and mildly tender. Extremities: No clubbing or cyanosis. Trace peripheral edema. Venous stasis dermatitis present. Moves arms and legs with equal strength. LABORATORIES: White count 15, hemoglobin 16, platelets 238. Sodium 143, potassium 3.3, BUN 28, creatinine 1.2, glucose 135. Abdominal films showed what might have been dilated small bowel, suspicious small bowel obstruction. IMPRESSION: 1. Small bowel obstruction per Dr. Salvador, who has been consulted. 2. Atrial fibrillation. I reviewed his electrocardiogram (EKG). There is nothing acute. Will hold his Eliquis due to the possibility of surgical intervention short-term, and thromboembolic risk with holding Eliquis is low. 3. Chronic obstructive pulmonary disease, moderate to severe. It looks like he just came off of prednisone taper. His lungs are clear. I do not think he is currently on prednisone. I do not think he requires stress dose of steroids as he has not been on a sufficient dose for a sufficient period of time to require this. Nebulized bronchodilator has been ordered. 4. Hyperlipidemia. Continue his atorvastatin 40 mg once he is taking by mouth again. 5. Hypertensive heart disease. Continue carvedilol 25 mg twice a day. Holding nasogastric (NG) tube after dosing. 6. A history of recent prostatitis with benign prostatic hypertrophy (BPH). Continue his tamsulosin 0.4 mg daily. He is at increased risk of hypertension. Follow with bedrest. 7. History of gout. Continue allopurinol 300 mg daily. 8. Obstructive sleep apnea. He does not reliably use his continuous positive airway pressure (CPAP). The hospitalist group will be the attending physicians and will assume his care after admission.
[2018-11-08 14:58] VITALS: BP 139/89
[2018-11-08] MEDS: LR 1,000 ML IV SCH ×2 (16:22→23:15)
[2018-11-08 18:00] VITALS: BP 133/71
[2018-11-08] MEDS: SYMBICORT 160/4.5MCG INHALER 6GM INH SCH (18:26)
[2018-11-08] MEDS: IPRATROPIUM 0.5MG/ALBUTEROL 2.5MG INH SOL UD 3ML (DUONEB)(J7620) NEB SCH (18:26)
[2018-11-08] MEDS ORDERED: ATORVASTATIN 20 MG TAB PO SCH (21:00)
[2018-11-08] MEDS ORDERED: TAMSULOSIN 0.4 MG CAP PO SCH (21:00)
[2018-11-08] MEDS ORDERED: MORPHINE 4 MG/ML 1ML VIAL/SYRINGE (J2270) IV ONE (21:30)
[2018-11-08 22:00] VITALS: BP 135/70
[2018-11-08] MEDS ORDERED: ONDANSETRON 4MG/2ML VIAL (J2405) IV PRN (22:45)
[2018-11-09] MEDS: IPRATROPIUM 0.5MG/ALBUTEROL 2.5MG INH SOL UD 3ML (DUONEB)(J7620) NEB SCH ×4 (00:23→20:00)
[2018-11-09] MEDS: PANTOPRAZOLE SODIUM 40 MG in D5W 50 ML IV SCH ×4 (04:01→10:09)
[2018-11-09] MEDS ORDERED: traMADol 50 MG TAB PO PRN (04:45)
[2018-11-09] MEDS ORDERED: MORPHINE 4 MG/ML 1ML VIAL/SYRINGE (J2270) IV ONE (04:45)
[2018-11-09] MEDS ORDERED: ANEXSIA, NORCO 7.5MG/325MG TABLET(HYDROCODONE/APAP) PO PRN (04:45)
[2018-11-09] MEDS ORDERED: ACETAMINOPHEN TAB 650MG DOSE (2X325MG) PO PRN (04:45)
[2018-11-09] MEDS: LR 1,000 ML IV SCH ×4 (05:58→22:12)
[2018-11-09 06:00] VITALS: BP 122/68
[2018-11-09] MEDS: GASTROGRAFIN SOLUTION 30ML PO SCH ×2 (06:41→07:03)
[2018-11-09 06:44] LABS: BASO # 0.1 10^3/uL (0.0-0.2); BASO % 0.5 % (0.0-1.0); EOS # 0.1 10^3/uL (0.0-0.5); EOS % 1.1 % (0.0-3.0); HEMATOCRIT 45.7 % (42.0-52.0); HEMOGLOBIN 14.3 g/dl (13.5-17.5); LYMPH % 10.2 % (24.0-44.0); MEAN CORPUSCULAR HEMOGLOBIN 29.9 pg (27.0-33.0); MEAN CORPUSCULAR HGB CONC 31.3 g/dl (32.0-36.5); MEAN CORPUSCULAR VOLUME 95.6 fl (80.0-96.0); NEUTROPHILS # 7.9 10^3/uL (1.5-8.5); NEUTROPHILS % 77.7 % (36.0-66.0); PLATELET COUNT, AUTOMATED 156 10^3/uL (150-450); RED BLOOD COUNT 4.78 10^6/uL (4.30-6.10); WHITE BLOOD COUNT 10.2 10^3/uL (4.0-10.0)
--- NOTE | 2018-11-09 07:19 | ECGEPIP ---
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
[2018-11-09 07:21] LABS: BLOOD UREA NITROGEN 25 MG/DL (7-18); CALCIUM LEVEL 8.6 MG/DL (8.8-10.2); CARBON DIOXIDE LEVEL 33 MEQ/L (21-32); CHLORIDE LEVEL 103 MEQ/L (98-107); CREATININE FOR GFR 1.14 MG/DL (0.70-1.30); GLOMERULAR FILTRATION RATE > 60.0 (>49); GLUCOSE, FASTING 110 MG/DL (70-100); POTASSIUM SERUM 4.2 MEQ/L (3.5-5.1); SODIUM LEVEL 142 MEQ/L (136-145)
[2018-11-09] MEDS: SYMBICORT 160/4.5MCG INHALER 6GM INH SCH ×2 (07:46→20:33)
--- NOTE | 2018-11-09 08:15 | IPNPDOC ---
Subjective General Date/Time Seen The patient was seen on 11/09/18 at 08:14. Subject Chief Complaint/History The patient is a 63-year-old male admitted with a reason for visit of Small Bowel Obstruction. Patient laying sideways in bed. Reports mild improvement of the discomfort though still quite distended. He is complaining of right elbow pain from his gout. He reports occasional flatus. Denies any nausea. Current Medications Current Medications Current Medications Medications (Trade) Dose Ordered Sig/Lennie Route PRN Reason Start Time Stop Time Status Last Admin Dose Admin Acetaminophen (Tylenol Tab) 650 mg Q4HP PRN PO PAIN 1-3 OR FEVER 11/09/18 04:45 Acetaminophen/ Hydrocodone Bitart (Anexsia, [place] 7.5mg/325mg) 1 tab Q6HP PRN PO severe PAIN (PS 8-10) 11/09/18 04:45 Albuterol/ Ipratropium (Duoneb (Ipr 0.5mg/Alb 2.5mg)) 3 ml Q2HP PRN NEB SOB/WHEEZING 11/08/18 12:45 Albuterol/ Ipratropium (Duoneb (Ipr 0.5mg/Alb 2.5mg)) 3 ml RQ6H NEB 11/08/18 14:00 11/09/18 00:23 Allopurinol (Zyloprim) 300 mg DAILY PO 11/08/18 09:00 Atorvastatin Calcium (Lipitor) 40 mg QHS PO 11/08/18 21:00 11/08/18 21:57 Budesonide/ Formoterol Fumarate (Symbicort 160/ 4.5mcg) 2 puff RBID INH 11/08/18 20:00 11/09/18 07:46 Carvedilol (COReg) 25 mg BID PO 11/08/18 09:00 11/08/18 21:58 Diatrizoate Meglum/ Diatrizoate Sod (Gastrografin) 10 ml Q30M PO 11/09/18 06:00 11/09/18 06:31 DC 11/09/18 07:03 Home Med (Med Rec Complete!) ASDIRECTED XX 11/08/18 13:30 11/08/18 13:30 DC Lactated Ringer's 1,000 ml @ 150 mls/hr Q6H40M IV 11/08/18 12:45 11/09/18 05:58 Morphine Sulfate (Morphine Sulfate Inj) 2 mg Q30M PRN IV MODERATE PAIN (PS 5-7) 11/08/18 08:30 11/08/18 11:39 DC 11/08/18 11:39 Ondansetron HCl (ZOFRAN INJection) 4 mg Q4HP PRN IV NAUSEA OR VOMITING 11/08/18 22:45 Pantoprazole Sodium (Protonix) 40 mg DAILY IV 11/09/18 09:00 Pantoprazole Sodium 40 mg/ Dextrose 50 ml @ 10 mls/hr Q5H IV 11/08/18 08:45 11/09/18 04:01 Tamsulosin HCl (Flomax) 0.4 mg QHS PO 11/08/18 21:00 11/08/18 21:00 DC Tramadol HCl (Ultram) 50 mg Q4HP PRN PO MODERATE PAIN (PS 5-7) 11/09/18 04:45 Allergies Coded Allergies: No Known Drug Allergies (Verified Allergy, Unknown, 08/16/18) Objective Physical Examination Examination GENERAL APPEARANCE: Still looking mildly uncomfortable. SKIN: Warm and moist. HEENT: Normocephalic, atraumatic. [place]imity palpebral conjunctiva, anicteric sclerae. Lips and mucosa appear moist. NECK: Supple, no thyromegaly. No obvious jugular venous distention. LUNGS: Clear to auscultation bilaterally. No wheezing appreciated. HEART: No chest wall abnormalities. Regular rate and rhythm with no murmurs appreciated. ABDOMEN: Abdomen is obese, protuberant abdomen, soft, still moderately distended and tympanitic to percussion. Hypoactive bowel sounds. Minimally tender on deep palpation without rebound or guarding. EXTREMITIES: Extremities have no deformities. No edema identified. Vital Signs Vital Signs Date Time Temp Pulse Resp B/P (MAP) Pulse Ox O2 Delivery O2 Flow Rate FiO2 11/09/18 06:00 97.9 85 20 122/68 (86) 97 2.5 11/08/18 14:27 Room Air I&Os I&O- Last 24 Hours up to 6 AM 11/09/18 06:00 Intake Total 1180 ml Output Total 3925 ml Balance -2745 ml Laboratory Data Labs 24H Laboratory Tests 2 11/08/18 09:07: Lactic Acid Level 1.5 11/08/18 09:08: Immature Granulocyte % (Auto) 0.4, White Blood Count 15.0H, Red Blood Count 5.46, Hemoglobin 16.2, Hematocrit 49.0, Mean Corpuscular Volume 89.7, Mean Corpuscular Hemoglobin 29.7, Mean Corpuscular Hemoglobin Concent 33.1, Red Cell Distribution Width 14.1, Platelet Count 238, Neutrophils (%) (Auto) 82.8H, Lymphocytes (%) (Auto) 7.1L, Monocytes (%) (Auto) 9.2H, Eosinophils (%) (Auto) 0.2, Basophils (%) (Auto) 0.3, Neutrophils # (Auto) 12.4H, Lymphocytes # (Auto) 1.1L, Monocytes # (Auto) 1.4H, Eosinophils # (Auto) 0.0, Basophils # (Auto) 0.1, Nucleated Red Blood Cells % (auto) 0.0, Prothrombin Time 13.3, Prothromb Time International Ratio 1.04, Activated Partial Thromboplast Time 23.0L, Anion Gap 8, Glomerular Filtration Rate > 60.0, Calcium Level 9.5, Aspartate Amino Transf (AST/SGOT) 7, Alanine Aminotransferase (ALT/SGPT) 17, Alkaline Phosphatase 76, Total Bilirubin 0.6, Direct Bilirubin 0.2, Total Creatine Kinase 36L, Creatine Kinase MB 2.1, Creatine Kinase MB Relative Index 5.83H, Troponin I < 0.02, Total Protein 6.3L, Albumin 3.7, Albumin/Globulin Ratio 1.42, Ethyl Alcohol Level < 0.003 11/09/18 05:22: Immature Granulocyte % (Auto) 0.5, White Blood Count 10.2H, Red Blood Count 4.78, Hemoglobin 14.3, Hematocrit 45.7, Mean Corpuscular Volume 95.6, Mean Corpuscular Hemoglobin 29.9, Mean Corpuscular Hemoglobin Concent 31.3L, Red Cell Distribution Width 13.9, Platelet Count 156, Neutrophils (%) (Auto) 77.7H, Lymphocytes (%) (Auto) 10.2L, Monocytes (%) (Auto) 10.0H, Eosinophils (%) (Auto) 1.1, Basophils (%) (Auto) 0.5, Neutrophils # (Auto) 7.9, Lymphocytes # (Auto) 1.0L, Monocytes # (Auto) 1.0H, Eosinophils # (Auto) 0.1, Basophils # (Auto) 0.1, Nucleated Red Blood Cells % (auto) 0.0, Anion Gap 6L, Glomerular Filtration Rate > 60.0, Calcium Level 8.6L, Blood Urea Nitrogen 25H, Creatinine 1.14, Sodium Level 142, Potassium Level 4.2#, Chloride Level 103, Carbon Dioxide Level 33H CBC/BMP Laboratory Tests 11/08/18 09:08 Red Blood Count 5.46, Mean Corpuscular Volume 89.7, Mean Corpuscular Hemoglobin 29.7, Mean Corpuscular Hemoglobin Concent 33.1, Red Cell Distribution Width 14.1, Neutrophils (%) (Auto) 82.8 H, Lymphocytes (%) (Auto) 7.1 L, Monocytes (%) (Auto) 9.2 H, Eosinophils (%) (Auto) 0.2, Basophils (%) (Auto) 0.3, Neutrophils # (Auto) 12.4 H, Lymphocytes # (Auto) 1.1 L, Monocytes # (Auto) 1.4 H, Eosinophils # (Auto) 0.0, Basophils # (Auto) 0.1 11/09/18 05:22 Red Blood Count 4.78, Mean Corpuscular Volume 95.6, Mean Corpuscular Hemoglobin 29.9, Mean Corpuscular Hemoglobin Concent 31.3 L, Red Cell Distribution Width 13.9, Neutrophils (%) (Auto) 77.7 H, Lymphocytes (%) (Auto) 10.2 L, Monocytes (%) (Auto) 10.0 H, Eosinophils (%) (Auto) 1.1, Basophils (%) (Auto) 0.5, Neutrophils # (Auto) 7.9, Lymphocytes # (Auto) 1.0 L, Monocytes # (Auto) 1.0 H, Eosinophils # (Auto) 0.1, Basophils # (Auto) 0.1, Calcium Level 8.6 L Microbiology Microbiology 11/08/18 Blood Culture, Received Pending 11/08/18 Blood Culture, Received Pending Imaging Studies CT abd/pelvis 1. Partial small bowel obstruction pattern with dilated mid jejunal loops and a point of transition adjacent to a localized peritoneal fluid collection. Likely due to adhesions. No obstructive lesion seen. No free air. 2. Distending gallbladder containing tiny gravel like calculi. 3. Left inguinal hernia transmitting abdominal fat. 4. Fibronodular opacities in the lower lobes of the lungs bilaterally. The largest currently visible in the left lower lobe measuring 19 mm. Impression Morbid obesity Small bowel obstruction Patient is getting ready for CT today and we will reevaluate once this is done. addendum: CT shows partial small bowel obstruction. Continue with NGT decompression. Patient instructed to ambulate out to the hallways. will recheck x ray tomorrow to look at the contrast flow to the colon and out of the small bowel I anticipate he will be a difficult procedure to do whether open or laparoscopic. He reports that his bariatric surgeon was not able to successfully get into his abdomen and his bariatric procedure was abandoned because of this. Plan / VTE VTE Prophylaxis Ordered?: Yes DARSHAN RIBEIRO MD Nov 09, 2018 08:15
[2018-11-09] MEDS ORDERED: ISOVUE-370 76% 100ML VIAL (Q9967) As Ordered ONE (08:18)
[2018-11-09] MEDS: ALLOPURINOL 300 MG TAB PO SCH (09:30)
[2018-11-09] MEDS: CARVedilol 12.5 MG TAB PO SCH ×2 (09:33→20:21)
[2018-11-09 10:00] VITALS: BP 116/62
--- NOTE | 2018-11-09 10:22 | REP ---
CT abdomen and pelvis with IV and oral contrast: History: Small bowel obstruction. Comparison CT study August 19, 2018. CT contrast dose: 100 ml of intravenous Isovue 370. CT findings: Preliminary digital social work supervisor radiograph shows numerous scattered surgical clips. The heart appears somewhat enlarged. There is a somewhat nodular opacity in the left lower lobe of the lung measuring 19 mm in diameter. This has a somewhat linear component superiorly and inferior. Similar opacities have been noted previously in a waxing and waning pattern. There is coarse linear fibrosis versus discoid atelectasis bilaterally in the lower lobes elsewhere. The left lower lobe density is slightly more prominent than it was August 19, 2018. Nasogastric tube is seen terminating in the gastric fundus. There is a small cyst in the left lobe of the liver. The liver and spleen are otherwise unremarkable and homogeneous. The gallbladder is rather distended and there are tiny calcific opacities in its dependent portion consistent with gravel like calculi. No biliary ductal dilation is seen. The pancreas is unremarkable. Kidneys enhance symmetrically are morphologically intact. There is spray artifact through the retroperitoneum from periaortic and pericaval surgical clip. An IVC filter is noted in place. No retroperitoneal mass or adenopathy is seen. Prostate, seminal vesicles, and urinary bladder are unremarkable. There are inguinal clips consistent with herniorrhaphy in the left lower quadrant. There is evidence of a left inguinal hernia transmitting abdominal fat through a 2.7 cm defect. No other abdominal wall defect is seen. There is a localized collection of interloop ascitic fluid in the right lower abdomen adjacent to some mildly dilated small bowel loops. The upper jejunum and mid jejunum loops are somewhat dilated. There is a point of transition in that the distal jejunal and ileal loops are normal in caliber. No obstructing lesion is identified. No mass or adenopathy is seen. Impression: 1. Partial small bowel obstruction pattern with dilated mid jejunal loops and a point of transition adjacent to a localized peritoneal fluid collection. Likely due to adhesions. No obstructive lesion seen. No free air. 2. Distending gallbladder containing tiny gravel like calculi. 3. Left inguinal hernia transmitting abdominal fat. 4. Fibronodular opacities in the lower lobes of the lungs bilaterally. The largest currently visible in the left lower lobe measuring 19 mm. Electronically Signed by Benjamin Calloway MD 11/09/2018 12:59 P
[2018-11-09] MEDS ORDERED: MORPHINE 4 MG/ML 1ML VIAL/SYRINGE (J2270) IV PRN (10:30)
[2018-11-09] MEDS ORDERED: KETOROLAC 30 MG/ML VIAL (J1885) IV ONE (10:30)
[2018-11-09] MEDS: PANTOPRAZOLE 40MG INJ (PROTONIX) (C9113) IV SCH (10:31)
[2018-11-09] MEDS: methylPREDNISolone INJ 40 MG/1 ML VIAL (J2920) IV SCH (11:04)
[2018-11-09 14:00] VITALS: BP 119/71
--- NOTE | 2018-11-09 15:47 | IPNPDOC ---
Subjective Date Seen The patient was seen on 11/09/18. Subjective Chief Complaint/HPI This am complains of right elbow and wrist severe pain and warmth. Continues to have significant abdominal distension. Says has passes a little flatus, no bowel movements. Feels a little SOB due to abdominal distension. No fever or chills, no chest pain. Objective Physical Examination General Exam: Positive: Alert, Cooperative, Moderate Distress Eye Exam: Positive: PERRLA, Conjunctiva & lids normal, EOMI; Negative: Sclera icteric ENT Exam: Positive: Atraumatic, Mucous membr. moist/pink, Pharynx Normal Neck Exam: Positive: Supple; Negative: JVD, thyromegaly Chest Exam: Positive: Diminished; Negative: Rales, Rhonchi, Wheezing Heart Exam: Positive: Rate Normal, Irregular Rhythm, Normal S1, Normal S2; Negative: Gallops, Murmurs, Rubs Abdomen Exam: Positive: BS Hypoactive, Tenderness, Other (distended, long midline scar) Extremity Exam: Positive: Edema (2+ bipedal edema); Negative: Clubbing, Cyanosis Skin Exam: Positive: Nl turgor and temperature; Negative: Rash, Breakdown Assessment /Plan Assessment SBO CT shows Partial small bowel obstruction pattern with dilated mid jejunal loops and a point of transition adjacent to a localized peritoneal fluid collection. Likely due to adhesions. No obstructive lesion seen. No free air. continue NPO, IVF and NG tube suction, Ambulate morphine prn for pain Follow surgery recommendation Acute gout flare will give methyl pred and toradol. continue allopurinol. Morbid obesity BMI of 41.3 reports that a few months ago he was supposed to have a bariatric procedure but the bariatric surgeon had to abandon the case as he was not able to gain entry into the abdomen. He tried performing a laparoscopy and also made a small supraumbilical incision and was not able to enter the abdomen at all. Afib continue coreg will hold eliquis as he may need surgery Hypertension with hypertensive heart disease continue coreg Severe COPD continue symbicort and duonebs Obstructive sleep apnea (ИВАН). He does not wear his continuous positive airway pressure (CPAP), History of cardiomyopathy. Echocardiogram 02/2018 showed ejection fraction of 50%, mildly dilated left ventricle, mildly dilated left atrium, dilated aortic root, elevated right-sided pressures. 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 will hold Eliquis as he may need surgery Testicular cancer with orchiectomy and lymph node resection full exploratory laparotomy incision for periaortic lymph node dissection for prior history of testicular cancer in the 1970s. Incisional and ventral hernias developed hernias on the laparotomy site in 2017 had emergent laparoscopic repair of the hernias where he had some incarcerated omental tissue History of nonsustained ventricular tachycardia (V-TACH). no issues at present. Fibronodular opacities in the lower lobes of the lungs bilaterally. The largest currently visible in the left lower lobe measuring 19 mm. Plan/VTE VTE Prophylaxis Ordered?: Yes VS, I&O, 24H, Fishbone Vital Signs/I&O Vital Signs Date Time Temp Pulse Resp B/P (MAP) Pulse Ox O2 Delivery O2 Flow Rate FiO2 11/09/18 11:10 2.5 11/09/18 10:10 20 11/09/18 10:00 98.0 88 116/62 (80) 92 11/08/18 14:27 Room Air I&O- Last 24 Hours up to 6 AM 11/09/18 06:00 Intake Total 1180 ml Output Total 3925 ml Balance -2745 ml Laboratory Data 24H LABS Laboratory Tests 2 11/09/18 05:22: Immature Granulocyte % (Auto) 0.5, White Blood Count 10.2H, Red Blood Count 4.78, Hemoglobin 14.3, Hematocrit 45.7, Mean Corpuscular Volume 95.6, Mean Corpuscular Hemoglobin 29.9, Mean Corpuscular Hemoglobin Concent 31.3L, Red Cell Distribution Width 13.9, Platelet Count 156, Neutrophils (%) (Auto) 77.7H, Lymphocytes (%) (Auto) 10.2L, Monocytes (%) (Auto) 10.0H, Eosinophils (%) (Auto) 1.1, Basophils (%) (Auto) 0.5, Neutrophils # (Auto) 7.9, Lymphocytes # (Auto) 1.0L, Monocytes # (Auto) 1.0H, Eosinophils # (Auto) 0.1, Basophils # (Auto) 0.1, Nucleated Red Blood Cells % (auto) 0.0, Anion Gap 6L, Glomerular Filtration Rate > 60.0, Blood Urea Nitrogen 25H, Creatinine 1.14, Sodium Level 142, Potassium Level 4.2#, Chloride Level 103, Carbon Dioxide Level 33H, Calcium Level 8.6L CBC/BMP Laboratory Tests 11/09/18 05:22 Red Blood Count 4.78, Mean Corpuscular Volume 95.6, Mean Corpuscular Hemoglobin 29.9, Mean Corpuscular Hemoglobin Concent 31.3 L, Red Cell Distribution Width 13.9, Neutrophils (%) (Auto) 77.7 H, Lymphocytes (%) (Auto) 10.2 L, Monocytes (%) (Auto) 10.0 H, Eosinophils (%) (Auto) 1.1, Basophils (%) (Auto) 0.5, Neutrophils # (Auto) 7.9, Lymphocytes # (Auto) 1.0 L, Monocytes # (Auto) 1.0 H, Eosinophils # (Auto) 0.1, Basophils # (Auto) 0.1, Calcium Level 8.6 L Microbiology Microbiology 11/08/18 Blood Culture - Preliminary, Resulted No growth after 24 hours . All specim... 11/08/18 Blood Culture - Preliminary, Resulted No growth after 24 hours . All specim... LISE BROOKE MD Nov 09, 2018 15:47
[2018-11-09 18:00] VITALS: BP 114/60
[2018-11-09] MEDS: HEPARIN SOD (PORCINE) 5000 UNITS/ML VIAL SQ SCH (20:21)
[2018-11-09 22:00] VITALS: BP 137/76
[2018-11-10] MEDS: IPRATROPIUM 0.5MG/ALBUTEROL 2.5MG INH SOL UD 3ML (DUONEB)(J7620) NEB SCH ×4 (00:02→20:00)
[2018-11-10 02:00] VITALS: BP 131/75
[2018-11-10] MEDS: LR 1,000 ML IV SCH ×2 (05:43→12:52)
[2018-11-10 06:00] VITALS: BP 117/65
[2018-11-10 06:34] LABS: BASO % 0.1 % (0.0-1.0); HEMATOCRIT 42.3 % (42.0-52.0); HEMOGLOBIN 12.8 g/dl (13.5-17.5); LYMPH # 0.6 10^3/uL (1.5-5.0); LYMPH % 6.3 % (24.0-44.0); MEAN CORPUSCULAR HEMOGLOBIN 29.1 pg (27.0-33.0); MEAN CORPUSCULAR HGB CONC 30.3 g/dl (32.0-36.5); MEAN CORPUSCULAR VOLUME 96.1 fl (80.0-96.0); MONO # 0.6 10^3/uL (0.0-0.8); MONO % 6.5 % (0.0-5.0); NEUTROPHILS # 7.8 10^3/uL (1.5-8.5); NEUTROPHILS % 86.7 % (36.0-66.0); PLATELET COUNT, AUTOMATED 132 10^3/uL (150-450); WHITE BLOOD COUNT 8.9 10^3/uL (4.0-10.0)
[2018-11-10 06:41] LABS: BLOOD UREA NITROGEN 22 MG/DL (7-18); CALCIUM LEVEL 8.7 MG/DL (8.8-10.2); CARBON DIOXIDE LEVEL 39 MEQ/L (21-32); CHLORIDE LEVEL 103 MEQ/L (98-107); CREATININE FOR GFR 0.92 MG/DL (0.70-1.30); GLOMERULAR FILTRATION RATE > 60.0 (>49); GLUCOSE, FASTING 112 MG/DL (70-100); POTASSIUM SERUM 4.5 MEQ/L (3.5-5.1); SODIUM LEVEL 142 MEQ/L (136-145)
[2018-11-10] MEDS ORDERED: MAGNESIUM CITRATE 300 ML BTL PO ONE (08:00)
[2018-11-10] MEDS: SYMBICORT 160/4.5MCG INHALER 6GM INH SCH ×2 (08:03→20:32)
--- NOTE | 2018-11-10 08:42 | REP ---
Q. abdominal series: Four views. History: Small bowel obstruction, follow contrast given at CT. Comparison study: November 08, 2018. Findings: Upright chest radiograph demonstrates a nasogastric tube which terminates in the left upper quadrant approximately at the level of the gastroesophageal junction. Mild cardiomegaly is observed. Pulmonary vasculature is prominent. Pleural angles are sharp. No infiltrate or free subdiaphragmatic air is seen. Supine and erect abdominal views demonstrate numerous surgical clips in the central and right abdomen. There is a vena cava filter in place. There is some faint contrast in right colon stool. Moderate stool is seen in the left colon. There are surgical clips in the left inguinal soft tissues as well. No small bowel dilation is visible. Bowel gas pattern is improved. Electronically Signed by Benjamin Calloway MD 11/10/2018 08:33 A
--- NOTE | 2018-11-10 08:48 | IPNPDOC ---
Subjective General Date/Time Seen The patient was seen on 11/10/18 at 08:46. Subject Chief Complaint/History The patient is a 63-year-old male admitted with a reason for visit of Small Bowel Obstruction. Patient feeling mildly better when I saw him last night and actually had his NGT clamped most of the day and did tolerate that without nausea or increased bloating. He is still complaining of discomfort on his abdomen though no cramping. Overnight he only had 25 MLS amount from his nasogastric tube so on x- ray this seems to pullback lobe at towards the GE junction. He is denying any nausea complaints of abdominal discomfort. His right elbow he reports feeling better he has been started on steroids. Current Medications Current Medications Current Medications Medications (Trade) Dose Ordered Sig/Lennie Route PRN Reason Start Time Stop Time Status Last Admin Dose Admin Acetaminophen (Tylenol Tab) 650 mg Q4HP PRN PO PAIN 1-3 OR FEVER 11/09/18 04:45 Acetaminophen/ Hydrocodone Bitart (Anexsia, [place] 7.5mg/325mg) 1 tab Q6HP PRN PO severe PAIN (PS 8-10) 11/09/18 04:45 11/09/18 10:28 DC Albuterol/ Ipratropium (Duoneb (Ipr 0.5mg/Alb 2.5mg)) 3 ml Q2HP PRN NEB SOB/WHEEZING 11/08/18 12:45 Albuterol/ Ipratropium (Duoneb (Ipr 0.5mg/Alb 2.5mg)) 3 ml RQ6H NEB 11/08/18 14:00 11/10/18 00:02 Allopurinol (Zyloprim) 300 mg DAILY PO 11/08/18 09:00 11/09/18 09:30 Atorvastatin Calcium (Lipitor) 40 mg QHS PO 11/08/18 21:00 11/09/18 08:47 DC 11/08/18 21:57 Budesonide/ Formoterol Fumarate (Symbicort 160/ 4.5mcg) 2 puff RBID INH 11/08/18 20:00 11/10/18 08:03 Carvedilol (COReg) 25 mg BID PO 11/08/18 09:00 11/09/18 20:21 Diatrizoate Meglum/ Diatrizoate Sod (Gastrografin) 10 ml Q30M PO 11/09/18 06:00 11/09/18 06:31 DC 11/09/18 07:03 Heparin Sodium (Porcine) (Heparin) 5,000 units BID SQ 11/09/18 21:00 11/09/18 20:21 Home Med (Med Rec Complete!) ASDIRECTED XX 11/08/18 13:30 11/08/18 13:30 DC Ketorolac Tromethamine (ToRADol) 15 mg Q6H PRN IV PAIN 11/09/18 10:30 11/14/18 10:29 Lactated Ringer's 1,000 ml @ 150 mls/hr Q6H40M IV 11/08/18 12:45 11/10/18 05:43 Methylprednisolone (SOLU medrol) 40 mg Q24H IV 11/09/18 11:00 11/09/18 11:04 Morphine Sulfate (Morphine Sulfate Inj) 2 mg Q30M PRN IV MODERATE PAIN (PS 5-7) 11/08/18 08:30 11/08/18 11:39 DC 11/08/18 11:39 Morphine Sulfate (Morphine Sulfate Inj) 4 mg Q4HP PRN IV SEVERE PAIN (PS 8-10) 11/09/18 10:30 11/09/18 20:24 Ondansetron HCl (ZOFRAN INJection) 4 mg Q4HP PRN IV NAUSEA OR VOMITING 11/08/18 22:45 Pantoprazole Sodium (Protonix) 40 mg DAILY IV 11/09/18 09:00 11/09/18 10:31 Pantoprazole Sodium 40 mg/ Dextrose 50 ml @ 10 mls/hr Q5H IV 11/08/18 08:45 11/09/18 10:13 DC 11/09/18 10:09 Tamsulosin HCl (Flomax) 0.4 mg QHS PO 11/08/18 21:00 11/08/18 21:00 DC Tramadol HCl (Ultram) 50 mg Q4HP PRN PO MODERATE PAIN (PS 5-7) 11/09/18 04:45 11/09/18 10:28 DC 11/09/18 09:31 Allergies Coded Allergies: No Known Drug Allergies (Verified Allergy, Unknown, 08/16/18) Objective Physical Examination Examination GENERAL APPEARANCE: Overall looks more comfortable. SKIN: Warm and dry. HEENT: Nasogastric tube seems to be still working no minimal, light brown output. NECK: Short, supple. LUNGS: Clear to auscultation bilaterally. No wheezing appreciated. HEART: No chest wall abnormalities. Regular rate and rhythm with no murmurs appreciated. ABDOMEN: Abdomen is markedly obese, markedly rounded though feels moderately s ofter than it was 2 days ago on admission. I did not detect any point tenderness but patient reports mild discomfort on deep palpation only. EXTREMITIES. Mild lower extremity edema. Vital Signs Vital Signs Date Time Temp Pulse Resp B/P (MAP) Pulse Ox O2 Delivery O2 Flow Rate FiO2 11/10/18 06:00 97.0 79 20 117/65 (82) 100 3.0 11/08/18 14:27 Room Air I&Os I&O- Last 24 Hours up to 6 AM 11/10/18 05:59 Intake Total 3680 ml Output Total 1650 ml Balance 2030 ml Laboratory Data Labs 24H Laboratory Tests 2 11/10/18 05:56: Immature Granulocyte % (Auto) 0.4, White Blood Count 8.9, Red Blood Count 4.40, Hemoglobin 12.8L, Hematocrit 42.3, Mean Corpuscular Volume 96.1H, Mean Corpuscular Hemoglobin 29.1, Mean Corpuscular Hemoglobin Concent 30.3L, Red Cell Distribution Width 13.5, Platelet Count 132L, Neutrophils (%) (Auto) 86.7H, Lymphocytes (%) (Auto) 6.3L, Monocytes (%) (Auto) 6.5H, Eosinophils (%) (Auto) 0.0, Basophils (%) (Auto) 0.1, Neutrophils # (Auto) 7.8, Lymphocytes # (Auto) 0.6L, Monocytes # (Auto) 0.6, Eosinophils # (Auto) 0.0, Basophils # (Auto) 0.0, Nucleated Red Blood Cells % (auto) 0.0 11/10/18 05:57: Anion Gap 0L, Glomerular Filtration Rate > 60.0, Blood Urea Nitrogen 22H, Creatinine 0.92, Sodium Level 142, Potassium Level 4.5, Chloride Level 103, Carbon Dioxide Level 39H, Calcium Level 8.7L CBC/BMP Laboratory Tests 11/10/18 05:56 Red Blood Count 4.40, Mean Corpuscular Volume 96.1 H, Mean Corpuscular Hemoglobin 29.1, Mean Corpuscular Hemoglobin Concent 30.3 L, Red Cell Distribution Width 13.5, Neutrophils (%) (Auto) 86.7 H, Lymphocytes (%) (Auto) 6.3 L, Monocytes (%) (Auto) 6.5 H, Eosinophils (%) (Auto) 0.0, Basophils (%) (Auto) 0.1, Neutrophils # (Auto) 7.8, Lymphocytes # (Auto) 0.6 L, Monocytes # (Auto) 0.6, Eosinophils # (Auto) 0.0, Basophils # (Auto) 0.0 11/10/18 05:57 Calcium Level 8.7 L Microbiology Microbiology 11/08/18 Blood Culture - Preliminary, Resulted No growth after 24 hours . All specim... 11/08/18 Blood Culture - Preliminary, Resulted No growth after 24 hours . All specim... Imaging Studies CT abdomen and pelvis (11/09/18) 1. Partial small bowel obstruction pattern with dilated mid jejunal loops and a point of transition adjacent to a localized peritoneal fluid collection. Likely due to adhesions. No obstructive lesion seen. No free air. 2. Distending gallbladder containing tiny gravel like calculi. 3. Left inguinal hernia transmitting abdominal fat. 4. Fibronodular opacities in the lower lobes of the lungs bilaterally. The largest currently visible in the left lower lobe measuring 19 mm. X-ray (11/10/18) Supine and erect abdominal views demonstrate numerous surgical clips in the central and right abdomen. There is a vena cava filter in place. There is some faint contrast in right colon stool. Moderate stool is seen in the left colon. There are surgical clips in the left inguinal soft tissues as well. No small bowel dilation is visible. Bowel gas pattern is improved Impression Morbid obesity small bowel obstruction Seems to be clinically better in terms of intestinal decompression. I reviewed the x-ray with him. It seems the nasogastric tube is somewhat pulled up towards the GE junction though he did tolerate this being clamped yesterday. I'll continue to clamp this today and see how he does. There is evidence that the contrast he was given yesterday and CT has follow-through to the right colon. I'll give him a dose of lactulose and see how he does. will give a dose of lactulose and try clamping his tube and see how he tolerates it. Plan / VTE VTE Prophylaxis Ordered?: Yes DARSHAN RIBEIRO MD Nov 10, 2018 08:48
[2018-11-10] MEDS: PANTOPRAZOLE 40MG INJ (PROTONIX) (C9113) IV SCH (09:46)
[2018-11-10] MEDS: HEPARIN SOD (PORCINE) 5000 UNITS/ML VIAL SQ SCH ×2 (09:46→21:44)
[2018-11-10] MEDS: ALLOPURINOL 300 MG TAB PO SCH (09:47)
[2018-11-10] MEDS: CARVedilol 12.5 MG TAB PO SCH ×2 (09:47→21:45)
[2018-11-10 10:00] VITALS: BP 117/72
[2018-11-10] MEDS: methylPREDNISolone INJ 40 MG/1 ML VIAL (J2920) IV SCH (10:24)
[2018-11-10] MEDS: KETOROLAC 30 MG/ML VIAL (J1885) IV PRN (10:25)
--- NOTE | 2018-11-10 11:40 | IPNPDOC ---
Subjective Date Seen The patient was seen on 11/10/18. Subjective Chief Complaint/HPI Denies any increased distension or vomiting or abdominal cramps. Say the pain in his right elbow and wrist is a little better though still warm and red. His right knee pain is improved. No fever or chills, no chest pain or SOB. Objective Physical Examination General Exam: Positive: Alert, Cooperative, Moderate Distress Eye Exam: Positive: PERRLA, Conjunctiva & lids normal, EOMI; Negative: Sclera icteric ENT Exam: Positive: Atraumatic, Mucous membr. moist/pink, Pharynx Normal Neck Exam: Positive: Supple; Negative: JVD, thyromegaly Chest Exam: Positive: Diminished; Negative: Rales, Rhonchi, Wheezing Heart Exam: Positive: Rate Normal, Irregular Rhythm, Normal S1, Normal S2; Negative: Gallops, Murmurs, Rubs Abdomen Exam: Positive: BS Hypoactive, Tenderness, Other (distended, long midline scar) Extremity Exam: Positive: Edema (2+ bipedal edema); Negative: Clubbing, Cyanosis Skin Exam: Positive: Nl turgor and temperature; Negative: Rash, Breakdown Assessment /Plan Assessment SBO CT shows Partial small bowel obstruction pattern with dilated mid jejunal loops and a point of transition adjacent to a localized peritoneal fluid collection. Likely due to adhesions. Xray from this morning slightly improved gas pattern. continue NPO, IVF and NG tube in clamped posititon , ambulate morphine prn for pain Follow surgery recommendation Acute gout flare continue methyl pred and toradol. continue allopurinol. Morbid obesity BMI of 41.3 reports that a few months ago he was supposed to have a bariatric procedure but the bariatric surgeon had to abandon the case as he was not able to gain entry into the abdomen. He tried performing a laparoscopy and also made a small supraumbilical incision and was not able to enter the abdomen at all. Afib continue coreg will hold eliquis as he may need surgery Hypertension with hypertensive heart disease continue coreg Severe COPD continue symbicort and duonebs Obstructive sleep apnea (ИВАН). He does not wear his continuous positive airway pressure (CPAP), History of cardiomyopathy. Echocardiogram 02/2018 showed ejection fraction of 50%, mildly dilated left ventricle, mildly dilated left atrium, dilated aortic root, elevated right-sided pressures. 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 will hold Eliquis as he may need surgery Testicular cancer with orchiectomy and lymph node resection full exploratory laparotomy incision for periaortic lymph node dissection for prior history of testicular cancer in the 1970s. Incisional and ventral hernias developed hernias on the laparotomy site in 2017 had emergent laparoscopic repair of the hernias where he had some incarcerated omental tissue Also had inguinal hernia repair. History of nonsustained ventricular tachycardia (V-TACH). no issues at present. Fibronodular opacities in the lower lobes of the lungs bilaterally. The largest currently visible in the left lower lobe measuring 19 mm. Plan/VTE VTE Prophylaxis Ordered?: Yes VS, I&O, 24H, Fishbone Vital Signs/I&O Vital Signs Date Time Temp Pulse Resp B/P (MAP) Pulse Ox O2 Delivery O2 Flow Rate FiO2 11/10/18 09:47 80 132/76 11/10/18 06:00 97.0 20 100 3.0 11/08/18 14:27 Room Air I&O- Last 24 Hours up to 6 AM 11/10/18 06:00 Intake Total 3650 ml Output Total 1450 ml Balance 2200 ml Laboratory Data 24H LABS Laboratory Tests 2 11/10/18 05:56: Immature Granulocyte % (Auto) 0.4, White Blood Count 8.9, Red Blood Count 4.40, Hemoglobin 12.8L, Hematocrit 42.3, Mean Corpuscular Volume 96.1H, Mean Corpuscular Hemoglobin 29.1, Mean Corpuscular Hemoglobin Concent 30.3L, Red Cell Distribution Width 13.5, Platelet Count 132L, Neutrophils (%) (Auto) 86.7H, Lymphocytes (%) (Auto) 6.3L, Monocytes (%) (Auto) 6.5H, Eosinophils (%) (Auto) 0.0, Basophils (%) (Auto) 0.1, Neutrophils # (Auto) 7.8, Lymphocytes # (Auto) 0.6L, Monocytes # (Auto) 0.6, Eosinophils # (Auto) 0.0, Basophils # (Auto) 0.0, Nucleated Red Blood Cells % (auto) 0.0 11/10/18 05:57: Anion Gap 0L, Glomerular Filtration Rate > 60.0, Blood Urea Nitrogen 22H, Creatinine 0.92, Sodium Level 142, Potassium Level 4.5, Chloride Level 103, Carbon Dioxide Level 39H, Calcium Level 8.7L CBC/BMP Laboratory Tests 11/10/18 05:56 Red Blood Count 4.40, Mean Corpuscular Volume 96.1 H, Mean Corpuscular Hemoglobin 29.1, Mean Corpuscular Hemoglobin Concent 30.3 L, Red Cell Distribution Width 13.5, Neutrophils (%) (Auto) 86.7 H, Lymphocytes (%) (Auto) 6.3 L, Monocytes (%) (Auto) 6.5 H, Eosinophils (%) (Auto) 0.0, Basophils (%) (Auto) 0.1, Neutrophils # (Auto) 7.8, Lymphocytes # (Auto) 0.6 L, Monocytes # (Auto) 0.6, Eosinophils # (Auto) 0.0, Basophils # (Auto) 0.0 11/10/18 05:57 Calcium Level 8.7 L Microbiology Microbiology 11/08/18 Blood Culture - Preliminary, Resulted No Growth after 48 hours. All Specime... 11/08/18 Blood Culture - Preliminary, Resulted No Growth after 48 hours. All Specime... LISE BROOKE MD Nov 10, 2018 11:40
[2018-11-10 14:00] VITALS: BP 116/58
[2018-11-10 18:00] VITALS: BP 119/73
[2018-11-10 20:00] VITALS: BP 119/74
[2018-11-11] VITALS: BP 124/75
[2018-11-11] MEDS: IPRATROPIUM 0.5MG/ALBUTEROL 2.5MG INH SOL UD 3ML (DUONEB)(J7620) NEB SCH ×5 (01:14→20:00)
[2018-11-11] MEDS: LR 1,000 ML IV SCH ×2 (01:35→14:49)
[2018-11-11 06:00] VITALS: BP 124/73
[2018-11-11 06:32] LABS: HEMATOCRIT 39.8 % (42.0-52.0); HEMOGLOBIN 12.1 g/dl (13.5-17.5); LYMPH # 0.6 10^3/uL (1.5-5.0); LYMPH % 9.9 % (24.0-44.0); MEAN CORPUSCULAR HEMOGLOBIN 29.3 pg (27.0-33.0); MEAN CORPUSCULAR HGB CONC 30.4 g/dl (32.0-36.5); MEAN CORPUSCULAR VOLUME 96.4 fl (80.0-96.0); MONO # 0.4 10^3/uL (0.0-0.8); MONO % 6.5 % (0.0-5.0); NEUTROPHILS # 5.4 10^3/uL (1.5-8.5); NEUTROPHILS % 83.1 % (36.0-66.0); PLATELET COUNT, AUTOMATED 123 10^3/uL (150-450); RED BLOOD COUNT 4.13 10^6/uL (4.30-6.10); WHITE BLOOD COUNT 6.5 10^3/uL (4.0-10.0)
[2018-11-11 06:48] LABS: BLOOD UREA NITROGEN 23 MG/DL (7-18); CALCIUM LEVEL 8.8 MG/DL (8.8-10.2); CARBON DIOXIDE LEVEL 35 MEQ/L (21-32); CHLORIDE LEVEL 104 MEQ/L (98-107); CREATININE FOR GFR 0.85 MG/DL (0.70-1.30); GLOMERULAR FILTRATION RATE > 60.0 (>49); GLUCOSE, FASTING 107 MG/DL (70-100); POTASSIUM SERUM 4.2 MEQ/L (3.5-5.1); SODIUM LEVEL 143 MEQ/L (136-145)
[2018-11-11] MEDS: SYMBICORT 160/4.5MCG INHALER 6GM INH SCH ×2 (07:53→20:15)
--- NOTE | 2018-11-11 09:11 | IPNPDOC ---
Subjective Date Seen The patient was seen on 11/11/18. Subjective Chief Complaint/HPI Had several liquid stools overnight after lactulose, NG tube was taken out overnight. Says after the morning meds had some epigastric pain and left upper quadrant pain more like cramps. , No nause or vomiting. Objective Physical Examination General Exam: Positive: Alert, Cooperative, Moderate Distress Eye Exam: Positive: PERRLA, Conjunctiva & lids normal, EOMI; Negative: Sclera icteric ENT Exam: Positive: Atraumatic, Mucous membr. moist/pink, Pharynx Normal Neck Exam: Positive: Supple; Negative: JVD, thyromegaly Chest Exam: Positive: Diminished; Negative: Rales, Rhonchi, Wheezing Heart Exam: Positive: Rate Normal, Irregular Rhythm, Normal S1, Normal S2; Negative: Gallops, Murmurs, Rubs Abdomen Exam: Positive: BS Hypoactive, Tenderness, Other (distended, long midline scar) Extremity Exam: Positive: Edema (2+ bipedal edema); Negative: Clubbing, Cyanosis Skin Exam: Positive: Nl turgor and temperature; Negative: Rash, Breakdown Assessment /Plan Assessment SBO CT shows Partial small bowel obstruction pattern with dilated mid jejunal loops and a point of transition adjacent to a localized peritoneal fluid collection. Likely due to adhesions. Xray from this morning slightly improved gas pattern. continue NPO, IVF, no NG tube at present. Follow surgery recommendation Acute gout flare continue methyl pred and toradol. continue allopurinol. Morbid obesity BMI of 41.3 reports that a few months ago he was supposed to have a bariatric procedure but the bariatric surgeon had to abandon the case as he was not able to gain entry into the abdomen. He tried performing a laparoscopy and also made a small supraumbilical incision and was not able to enter the abdomen at all. Afib continue coreg will hold eliquis as he may need surgery Hypertension with hypertensive heart disease continue coreg Severe COPD continue symbicort and duonebs Obstructive sleep apnea (ИВАН). He does not wear his continuous positive airway pressure (CPAP), History of cardiomyopathy. Echocardiogram 02/2018 showed ejection fraction of 50%, mildly dilated left ventricle, mildly dilated left atrium, dilated aortic root, elevated right-sided pressures. 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 will hold Eliquis as he may need surgery Testicular cancer with orchiectomy and lymph node resection full exploratory laparotomy incision for periaortic lymph node dissection for prior history of testicular cancer in the 1970s. Incisional and ventral hernias developed hernias on the laparotomy site in 2017 had emergent laparoscopic repair of the hernias where he had some incarcerated omental tissue Also had inguinal hernia repair. History of nonsustained ventricular tachycardia (V-TACH). no issues at present. Fibronodular opacities in the lower lobes of the lungs bilaterally. The largest currently visible in the left lower lobe measuring 19 mm. Plan/VTE VTE Prophylaxis Ordered?: Yes VS, I&O, 24H, Fishbone Vital Signs/I&O Vital Signs Date Time Temp Pulse Resp B/P (MAP) Pulse Ox O2 Delivery O2 Flow Rate FiO2 11/11/18 06:00 98.8 94 18 124/73 (90) 97 3.0 11/08/18 14:27 Room Air I&O- Last 24 Hours up to 6 AM 11/11/18 05:59 Intake Total 1688 ml Output Total 1280 ml Balance 408 ml Laboratory Data 24H LABS Laboratory Tests 2 11/11/18 05:34: Immature Granulocyte % (Auto) 0.5, White Blood Count 6.5, Red Blood Count 4.13L, Hemoglobin 12.1L, Hematocrit 39.8L, Mean Corpuscular Volume 96.4H, Mean Corpuscular Hemoglobin 29.3, Mean Corpuscular Hemoglobin Concent 30.4L, Red Cell Distribution Width 13.4, Platelet Count 123L, Neutrophils (%) (Auto) 83.1H, Lymphocytes (%) (Auto) 9.9L, Monocytes (%) (Auto) 6.5H, Eosinophils (%) (Auto) 0.0, Basophils (%) (Auto) 0.0, Neutrophils # (Auto) 5.4, Lymphocytes # (Auto) 0.6L, Monocytes # (Auto) 0.4, Eosinophils # (Auto) 0.0, Basophils # (Auto) 0.0, Nucleated Red Blood Cells % (auto) 0.0, Anion Gap 4L, Glomerular Filtration Rate > 60.0, Blood Urea Nitrogen 23H, Creatinine 0.85, Sodium Level 143, Potassium Level 4.2, Chloride Level 104, Carbon Dioxide Level 35H, Calcium Level 8.8 CBC/BMP Laboratory Tests 11/11/18 05:34 Red Blood Count 4.13 L, Mean Corpuscular Volume 96.4 H, Mean Corpuscular Hemoglobin 29.3, Mean Corpuscular Hemoglobin Concent 30.4 L, Red Cell Distribution Width 13.4, Neutrophils (%) (Auto) 83.1 H, Lymphocytes (%) (Auto) 9.9 L, Monocytes (%) (Auto) 6.5 H, Eosinophils (%) (Auto) 0.0, Basophils (%) (Auto) 0.0, Neutrophils # (Auto) 5.4, Lymphocytes # (Auto) 0.6 L, Monocytes # (Auto) 0.4, Eosinophils # (Auto) 0.0, Basophils # (Auto) 0.0, Calcium Level 8.8 Microbiology Microbiology 11/08/18 Blood Culture - Preliminary, Resulted No Growth after 48 hours. All Specime... 11/08/18 Blood Culture - Preliminary, Resulted No Growth after 48 hours. All Specime... LISE BROOKE MD Nov 11, 2018 09:11
[2018-11-11] MEDS: HEPARIN SOD (PORCINE) 5000 UNITS/ML VIAL SQ SCH ×2 (09:20→21:52)
[2018-11-11] MEDS: PANTOPRAZOLE 40MG INJ (PROTONIX) (C9113) IV SCH (09:20)
[2018-11-11] MEDS: ALLOPURINOL 300 MG TAB PO SCH (09:22)
[2018-11-11] MEDS: CARVedilol 12.5 MG TAB PO SCH ×2 (09:22→21:52)
[2018-11-11 10:00] VITALS: BP 126/60
[2018-11-11] MEDS: methylPREDNISolone INJ 40 MG/1 ML VIAL (J2920) IV SCH (11:32)
[2018-11-11 14:00] VITALS: BP 115/55
[2018-11-11 18:00] VITALS: BP 133/76
[2018-11-11 20:00] VITALS: BP 136/85
[2018-11-11] MEDS: KETOROLAC 30 MG/ML VIAL (J1885) IV PRN (21:53)
[2018-11-12 02:00] VITALS: BP 132/82
[2018-11-12] MEDS: IPRATROPIUM 0.5MG/ALBUTEROL 2.5MG INH SOL UD 3ML (DUONEB)(J7620) NEB SCH ×4 (02:00→19:53)
[2018-11-12] MEDS: LR 1,000 ML IV SCH (03:42)
[2018-11-12 06:00] VITALS: BP 140/90
[2018-11-12 06:34] LABS: HEMATOCRIT 40.5 % (42.0-52.0); HEMOGLOBIN 12.4 g/dl (13.5-17.5); LYMPH # 0.7 10^3/uL (1.5-5.0); LYMPH % 12.5 % (24.0-44.0); MEAN CORPUSCULAR HEMOGLOBIN 29.7 pg (27.0-33.0); MEAN CORPUSCULAR HGB CONC 30.6 g/dl (32.0-36.5); MEAN CORPUSCULAR VOLUME 97.1 fl (80.0-96.0); MONO # 0.4 10^3/uL (0.0-0.8); MONO % 7.5 % (0.0-5.0); NEUTROPHILS # 4.3 10^3/uL (1.5-8.5); NEUTROPHILS % 79.3 % (36.0-66.0); PLATELET COUNT, AUTOMATED 141 10^3/uL (150-450); RED BLOOD COUNT 4.17 10^6/uL (4.30-6.10); WHITE BLOOD COUNT 5.4 10^3/uL (4.0-10.0)
[2018-11-12 06:58] LABS: BLOOD UREA NITROGEN 19 MG/DL (7-18); CALCIUM LEVEL 8.7 MG/DL (8.8-10.2); CARBON DIOXIDE LEVEL 35 MEQ/L (21-32); CHLORIDE LEVEL 103 MEQ/L (98-107); CREATININE FOR GFR 0.93 MG/DL (0.70-1.30); GLOMERULAR FILTRATION RATE > 60.0 (>49); GLUCOSE, FASTING 99 MG/DL (70-100); SODIUM LEVEL 142 MEQ/L (136-145)
[2018-11-12] MEDS: SYMBICORT 160/4.5MCG INHALER 6GM INH SCH ×2 (08:05→19:53)
--- NOTE | 2018-11-12 09:44 | REP ---
REASON: History of SBO followup. The latest prior 11/10/2018. Frontal view of the chest shows cardiomegaly. The nasogastric tube has been removed. There is no change in the appearance of the lung oro. There is cardiomegaly and prominent stable central pulmonary venous engorgement. No new patchy opacities have developed. There is no evidence of free air in the subdiaphragmatic regions. Once again, surgical saba are seen about the abdomen and pelvis. A skin staple line is seen over the left inguinal region, all stable. There is a [place] filter catheter in place which is unchanged. Oral bowel preparatory contrast seen on the prior exam is no longer evident. The bowel gas pattern is nonspecific. There is no evidence of intestinal obstruction, however, a few gas filled dilated small bowel loops persist in the right upper quadrant. IMPRESSION: As above. Electronically Signed by Kenny Duke DO 11/12/2018 09:47 A
[2018-11-12 10:00] VITALS: BP 138/84
[2018-11-12] MEDS: HEPARIN SOD (PORCINE) 5000 UNITS/ML VIAL SQ SCH ×2 (10:01→21:23)
[2018-11-12] MEDS: PANTOPRAZOLE 40MG INJ (PROTONIX) (C9113) IV SCH (10:01)
[2018-11-12] MEDS: ALLOPURINOL 300 MG TAB PO SCH (10:02)
[2018-11-12] MEDS: CARVedilol 12.5 MG TAB PO SCH ×2 (10:04→21:23)
[2018-11-12] MEDS ORDERED: MAGNESIUM CITRATE 300 ML BTL PO ONE (10:15)
--- NOTE | 2018-11-12 10:44 | IPNPDOC ---
Subjective Date Seen The patient was seen on 11/12/18. Subjective Chief Complaint/HPI Stills having intermittent crampy abdominal pains. Passing gas but no bowel movement. Says having very small amounts of urine output dark in color. No bowel movements since yesterday morning. NG has been discontinued and patient has been started on clear liquids by surgery. Says his oxygen is dropping to 80% when he is walking from the bed to door so he is not walking much. Says uses oxygen only at night at home. his right elbow pain and rght wrist pain have improved. Objective Physical Examination General Exam: Positive: Alert, Cooperative, Moderate Distress Eye Exam: Positive: PERRLA, Conjunctiva & lids normal, EOMI; Negative: Sclera icteric ENT Exam: Positive: Atraumatic, Mucous membr. moist/pink, Pharynx Normal Neck Exam: Positive: Supple; Negative: JVD, thyromegaly Chest Exam: Positive: Diminished; Negative: Rales, Rhonchi, Wheezing Heart Exam: Positive: Rate Normal, Irregular Rhythm, Normal S1, Normal S2; Negative: Gallops, Murmurs, Rubs Abdomen Exam: Positive: BS Hypoactive, Tenderness, Other (distended, long midline scar) Extremity Exam: Positive: Edema (2+ bipedal edema); Negative: Clubbing, Cyanosis Skin Exam: Positive: Nl turgor and temperature; Negative: Rash, Breakdown Assessment /Plan Assessment SBO CT shows Partial small bowel obstruction pattern with dilated mid jejunal loops and a point of transition adjacent to a localized peritoneal fluid collection. Likely due to adhesions. Xray from this morning slightly improved gas pattern. On clear liquids. will decrease IVF. , morphine, zofran prn. Follow surgery recommendation Acute gout flare resolved will stop methyl pred and toradol. continue allopurinol. Morbid obesity BMI of 41.3 reports that a few months ago he was supposed to have a bariatric procedure but the bariatric surgeon had to abandon the case as he was not able to gain entry into the abdomen. He tried performing a laparoscopy and also made a small supraumbilical incision and was not able to enter the abdomen at all. Afib continue coreg will hold eliquis as he may need surgery Hypertension with hypertensive heart disease continue coreg Severe COPD with chronic respiratory failure with hypoxia. continue symbicort and duonebs Obstructive sleep apnea (ИВАН). He does not wear his continuous positive airway pressure (CPAP), uses only oxygen at night. History of cardiomyopathy. Echocardiogram 02/2018 showed ejection fraction of 50%, mildly dilated left ventricle, mildly dilated left atrium, dilated aortic root, elevated right-sided pressures. 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 will hold Eliquis as he may need surgery Testicular cancer with orchiectomy and lymph node resection full exploratory laparotomy incision for periaortic lymph node dissection for prior history of testicular cancer in the 1970s. Incisional and ventral hernias developed hernias on the laparotomy site in 2017 had emergent laparoscopic repair of the hernias where he had some incarcerated omental tissue Also had inguinal hernia repair. History of nonsustained ventricular tachycardia (V-TACH). no issues at present. Fibronodular opacities in the lower lobes of the lungs bilaterally. The largest currently visible in the left lower lobe measuring 19 mm. Plan/VTE VTE Prophylaxis Ordered?: Yes VS, I&O, 24H, Fishbone Vital Signs/I&O Vital Signs Date Time Temp Pulse Resp B/P (MAP) Pulse Ox O2 Delivery O2 Flow Rate FiO2 11/12/18 02:00 98.9 73 20 132/82 (99) 98 3.0 11/08/18 14:27 Room Air I&O- Last 24 Hours up to 6 AM 11/12/18 06:00 Intake Total 3540 ml Output Total 400 ml Balance 3140 ml Laboratory Data 24H LABS Laboratory Tests 2 11/12/18 06:03: Immature Granulocyte % (Auto) 0.7, White Blood Count 5.4, Red Blood Count 4.17L, Hemoglobin 12.4L, Hematocrit 40.5L, Mean Corpuscular Volume 97.1H, Mean Corpuscular Hemoglobin 29.7, Mean Corpuscular Hemoglobin Concent 30.6L, Red Cell Distribution Width 13.3, Platelet Count 141L, Neutrophils (%) (Auto) 79.3H, Lymphocytes (%) (Auto) 12.5L, Monocytes (%) (Auto) 7.5H, Eosinophils (%) (Auto) 0.0, Basophils (%) (Auto) 0.0, Neutrophils # (Auto) 4.3, Lymphocytes # (Auto) 0.7L, Monocytes # (Auto) 0.4, Eosinophils # (Auto) 0.0, Basophils # (Auto) 0.0, Nucleated Red Blood Cells % (auto) 0.0, Anion Gap 4L, Glomerular Filtration Rate > 60.0, Blood Urea Nitrogen 19H, Creatinine 0.93, Sodium Level 142, Potassium Level 4.0, Chloride Level 103, Carbon Dioxide Level 35H, Calcium Level 8.7L CBC/BMP Laboratory Tests 11/12/18 06:03 Red Blood Count 4.17 L, Mean Corpuscular Volume 97.1 H, Mean Corpuscular Hemoglobin 29.7, Mean Corpuscular Hemoglobin Concent 30.6 L, Red Cell Distrib ution Width 13.3, Neutrophils (%) (Auto) 79.3 H, Lymphocytes (%) (Auto) 12.5 L, Monocytes (%) (Auto) 7.5 H, Eosinophils (%) (Auto) 0.0, Basophils (%) (Auto) 0.0, Neutrophils # (Auto) 4.3, Lymphocytes # (Auto) 0.7 L, Monocytes # (Auto) 0.4, Eosinophils # (Auto) 0.0, Basophils # (Auto) 0.0, Calcium Level 8.7 L Microbiology Microbiology 11/08/18 Blood Culture - Preliminary, Resulted No Growth after 72 hours. All specime... 11/08/18 Blood Culture - Preliminary, Resulted No Growth after 72 hours. All specime... LISE BROOKE MD Nov 12, 2018 07:11
[2018-11-12] MEDS ORDERED: methylPREDNISolone INJ 40 MG/1 ML VIAL (J2920) IV SCH (11:00)
[2018-11-12 14:00] VITALS: BP 138/87
[2018-11-12 18:00] VITALS: BP 134/84
[2018-11-12 22:00] VITALS: BP 123/65
[2018-11-13] VITALS (10 sets, daily range): BP systolic 101–130; BP diastolic 51–82; O2SAT 96–98
[2018-11-13] MEDS: IPRATROPIUM 0.5MG/ALBUTEROL 2.5MG INH SOL UD 3ML (DUONEB)(J7620) NEB SCH ×2 (02:00→08:00)
[2018-11-13 06:22] LABS: BASO % 0.3 % (0.0-1.0); EOS % 0.3 % (0.0-3.0); HEMATOCRIT 43.3 % (42.0-52.0); HEMOGLOBIN 13.2 g/dl (13.5-17.5); LYMPH # 1.1 10^3/uL (1.5-5.0); LYMPH % 18.5 % (24.0-44.0); MEAN CORPUSCULAR HEMOGLOBIN 29.8 pg (27.0-33.0); MEAN CORPUSCULAR HGB CONC 30.5 g/dl (32.0-36.5); MEAN CORPUSCULAR VOLUME 97.7 fl (80.0-96.0); MONO # 0.6 10^3/uL (0.0-0.8); NEUTROPHILS # 4.3 10^3/uL (1.5-8.5); NEUTROPHILS % 70.4 % (36.0-66.0); PLATELET COUNT, AUTOMATED 110 10^3/uL (150-450); RED BLOOD COUNT 4.43 10^6/uL (4.30-6.10); WHITE BLOOD COUNT 6.1 10^3/uL (4.0-10.0)
[2018-11-13 07:22] LABS: BLOOD UREA NITROGEN 16 MG/DL (7-18); CALCIUM LEVEL 8.6 MG/DL (8.8-10.2); CARBON DIOXIDE LEVEL 36 MEQ/L (21-32); CHLORIDE LEVEL 104 MEQ/L (98-107); CREATININE FOR GFR 0.74 MG/DL (0.70-1.30); GLOMERULAR FILTRATION RATE > 60.0 (>49); GLUCOSE, FASTING 92 MG/DL (70-100); POTASSIUM SERUM 3.9 MEQ/L (3.5-5.1); SODIUM LEVEL 143 MEQ/L (136-145)
[2018-11-13] MEDS: TIOTROPIUM INHALER/CAPSULE (SPIRIVA) INH SCH (08:00)
[2018-11-13] MEDS: SYMBICORT 160/4.5MCG INHALER 6GM INH SCH ×2 (08:12→20:49)
[2018-11-13] MEDS: PANTOPRAZOLE 40MG INJ (PROTONIX) (C9113) IV SCH (09:50)
--- NOTE | 2018-11-13 09:50 | IPNPDOC ---
Text Note Date of Service The patient was seen on 11/13/18. NOTE Patient seen sitting on his bed, looks comfortable. He has been tolerating full liquids though he tells me he feels bloated afterwards then feels better after passing flatus. He is passing flatus and he reports a few loose BMs since I saw hi yesterday On exam, he is seen sitting up comfortably on his bed. He just finished fully liquids for breakfast. abdomen is markedly obese, hard to tell degree of distention with his body habitus but certainly a lot softer than when he came in. Nontender on palpation Impression. small bowel obstruction will advance diet. MOM daily. VS,Fishbone, I+O VS, Fishbone, I+O Laboratory Tests 11/13/18 05:30 Red Blood Count 4.43, Mean Corpuscular Volume 97.7 H, Mean Corpuscular Hemoglobin 29.8, Mean Corpuscular Hemoglobin Concent 30.5 L, Red Cell Distribution Width 13.2, Neutrophils (%) (Auto) 70.4 H, Lymphocytes (%) (Auto) 18.5 L, Monocytes (%) (Auto) 10.0 H, Eosinophils (%) (Auto) 0.3, Basophils (%) (Auto) 0.3, Neutrophils # (Auto) 4.3, Lymphocytes # (Auto) 1.1 L, Monocytes # (Auto) 0.6, Eosinophils # (Auto) 0.0, Basophils # (Auto) 0.0 11/13/18 06:44 Calcium Level 8.6 L Vital Signs Date Time Temp Pulse Resp B/P (MAP) Pulse Ox O2 Delivery O2 Flow Rate FiO2 11/13/18 06:00 96.6 81 20 130/82 (98) 96 3.0 11/13/18 03:25 Nasal Cannula I&O- Last 24 Hours up to 6 AM 11/13/18 06:00 Intake Total 2448 ml Output Total 475 ml Balance 1973 ml DARSHAN RIBEIRO MD Nov 13, 2018 09:49
[2018-11-13] MEDS: HEPARIN SOD (PORCINE) 5000 UNITS/ML VIAL SQ SCH ×2 (09:51→20:14)
[2018-11-13] MEDS: ALLOPURINOL 300 MG TAB PO SCH (09:51)
[2018-11-13] MEDS: CARVedilol 12.5 MG TAB PO SCH ×2 (09:53→20:16)
[2018-11-13] MEDS: MOM 30ML SUSPENSION UDC PO SCH (10:01)
[2018-11-13] MEDS: SPIRONOLACTONE 25 MG TAB PO SCH ×2 (11:55→17:03)
[2018-11-13] MEDS: TORSEMIDE 20 MG TAB PO SCH (11:56)
--- NOTE | 2018-11-13 14:22 | IPNPDOC ---
Subjective Date Seen The patient was seen on 11/13/18. Subjective Chief Complaint/HPI Having innumerable bowel movements liquid stools, says pain and cramps are a little better. Ate soft diet today seems to be tolerating it. no fever or chills, continues to have sob and requiring 3 liters through out the day. Objective Physical Examination General Exam: Positive: Alert, Cooperative, Moderate Distress Eye Exam: Positive: PERRLA, Conjunctiva & lids normal, EOMI; Negative: Sclera icteric ENT Exam: Positive: Atraumatic, Mucous membr. moist/pink, Pharynx Normal Neck Exam: Positive: Supple; Negative: JVD, thyromegaly Chest Exam: Positive: Rhonchi, Wheezing, Diminished Heart Exam: Positive: Rate Normal, Irregular Rhythm, Normal S1, Normal S2; Negative: Gallops, Murmurs, Rubs Abdomen Exam: Positive: BS Hyperactive, Tenderness (less than before), Other (distended, long midline scar) Extremity Exam: Positive: Edema (2+ bipedal edema); Negative: Clubbing, Cyanosis Skin Exam: Positive: Nl turgor and temperature; Negative: Rash, Breakdown Assessment /Plan Assessment SBO CT shows Partial small bowel obstruction pattern with dilated mid jejunal loops and a point of transition adjacent to a localized peritoneal fluid collection. Likely due to adhesions. morphine, zofran prn diet advanced by surgery Follow surgery recommendation Acute gout flare resolved stopped methyl pred and toradol. continue allopurinol. Morbid obesity BMI of 41.3 reports that a few months ago he was supposed to have a bariatric procedure but the bariatric surgeon had to abandon the case as he was not able to gain entry into the abdomen. He tried performing a laparoscopy and also made a small supraumbilical incision and was not able to enter the abdomen at all. Afib continue coreg will hold eliquis as he may need surgery Hypertension with hypertensive heart disease continue coreg Severe COPD with chronic respiratory failure with hypoxia. continue symbicort and albuterol restart spiriva Obstructive sleep apnea (ИВАН). He does not wear his continuous positive airway pressure (CPAP), uses only oxygen at night. History of cardiomyopathy. Echocardiogram 02/2018 showed ejection fraction of 50%, mildly dilated left ventricle, mildly dilated left atrium, dilated aortic root, elevated right-sided pressures. 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 will hold Eliquis as he may need surgery Testicular cancer with orchiectomy and lymph node resection full exploratory laparotomy incision for periaortic lymph node dissection for prior history of testicular cancer in the 1970s. Incisional and ventral hernias developed hernias on the laparotomy site in 2017 had emergent laparoscopic repair of the hernias where he had some incarcerated omental tissue Also had inguinal hernia repair. History of nonsustained ventricular tachycardia (V-TACH). no issues at present. Fibronodular opacities in the lower lobes of the lungs bilaterally. The largest currently visible in the left lower lobe measuring 19 mm. Plan/VTE VTE Prophylaxis Ordered?: Yes VS, I&O, 24H, Fishbone Vital Signs/I&O Vital Signs Date Time Temp Pulse Resp B/P (MAP) Pulse Ox O2 Delivery O2 Flow Rate FiO2 11/13/18 14:00 97.9 98 20 116/58 (77) 97 3.0 11/13/18 13:42 Nasal Cannula I&O- Last 24 Hours up to 6 AM 11/13/18 06:00 Intake Total 2448 ml Output Total 475 ml Balance 1973 ml Laboratory Data 24H LABS Laboratory Tests 2 11/13/18 05:30: Immature Granulocyte % (Auto) 0.5, White Blood Count 6.1, Red Blood Count 4.43, Hemoglobin 13.2L, Hematocrit 43.3, Mean Corpuscular Volume 97.7H, Mean Corpuscular Hemoglobin 29.8, Mean Corpuscular Hemoglobin Concent 30.5L, Red Cell Distribution Width 13.2, Platelet Count 110L, Neutrophils (%) (Auto) 70.4H, Lymphocytes (%) (Auto) 18.5L, Monocytes (%) (Auto) 10.0H, Eosinophils (%) (Auto) 0.3, Basophils (%) (Auto) 0.3, Neutrophils # (Auto) 4.3, Lymphocytes # (Auto) 1.1L, Monocytes # (Auto) 0.6, Eosinophils # (Auto) 0.0, Basophils # (Auto) 0.0, Nucleated Red Blood Cells % (auto) 0.0 11/13/18 06:44: Anion Gap 3L, Glomerular Filtration Rate > 60.0, Blood Urea Nitrogen 16, Creatinine 0.74, Sodium Level 143, Potassium Level 3.9, Chloride Level 104, Carbon Dioxide Level 36H, Calcium Level 8.6L CBC/BMP Laboratory Tests 11/13/18 05:30 Red Blood Count 4.43, Mean Corpuscular Volume 97.7 H, Mean Corpuscular Hemoglobin 29.8, Mean Corpuscular Hemoglobin Concent 30.5 L, Red Cell Distribution Width 13.2, Neutrophils (%) (Auto) 70.4 H, Lymphocytes (%) (Auto) 18.5 L, Monocytes (%) (Auto) 10.0 H, Eosinophils (%) (Auto) 0.3, Basophils (%) (Auto) 0.3, Neutrophils # (Auto) 4.3, Lymphocytes # (Auto) 1.1 L, Monocytes # (Auto) 0.6, Eosinophils # (Auto) 0.0, Basophils # (Auto) 0.0 11/13/18 06:44 Calcium Level 8.6 L Microbiology Microbiology 11/08/18 Blood Culture - Final, Complete NO GROWTH AFTER 5 DAYS 11/08/18 Blood Culture - Final, Complete NO GROWTH AFTER 5 DAYS LISE BROOKE MD Nov 13, 2018 14:22
[2018-11-13] MEDS: ALBUTEROL SULFATE 2.5 MG/0.5 ML INH NEB SOLN NEB SCH ×2 (15:12→20:49)
[2018-11-14] VITALS (7 sets, daily range): BP systolic 112–124; BP diastolic 53–68; O2SAT 94
[2018-11-14 06:45] LABS: BASO % 0.5 % (0.0-1.0); EOS # 0.1 10^3/uL (0.0-0.5); EOS % 1.8 % (0.0-3.0); HEMATOCRIT 42.2 % (42.0-52.0); LYMPH # 1.4 10^3/uL (1.5-5.0); LYMPH % 23.7 % (24.0-44.0); MEAN CORPUSCULAR HGB CONC 30.8 g/dl (32.0-36.5); MEAN CORPUSCULAR VOLUME 94.2 fl (80.0-96.0); MONO # 0.7 10^3/uL (0.0-0.8); MONO % 10.8 % (0.0-5.0); NEUTROPHILS # 3.8 10^3/uL (1.5-8.5); NEUTROPHILS % 62.2 % (36.0-66.0); PLATELET COUNT, AUTOMATED 147 10^3/uL (150-450); RED BLOOD COUNT 4.48 10^6/uL (4.30-6.10)
[2018-11-14 07:04] LABS: BLOOD UREA NITROGEN 14 MG/DL (7-18); CALCIUM LEVEL 8.4 MG/DL (8.8-10.2); CARBON DIOXIDE LEVEL 43 MEQ/L (21-32); CHLORIDE LEVEL 97 MEQ/L (98-107); CREATININE FOR GFR 0.94 MG/DL (0.70-1.30); GLOMERULAR FILTRATION RATE > 60.0 (>49); GLUCOSE, FASTING 92 MG/DL (70-100); POTASSIUM SERUM 3.2 MEQ/L (3.5-5.1); SODIUM LEVEL 144 MEQ/L (136-145)
[2018-11-14] MEDS: ALBUTEROL SULFATE 2.5 MG/0.5 ML INH NEB SOLN NEB SCH ×3 (08:00→23:39)
[2018-11-14] MEDS: SYMBICORT 160/4.5MCG INHALER 6GM INH SCH ×3 (08:27→21:38)
[2018-11-14] MEDS: TIOTROPIUM INHALER/CAPSULE (SPIRIVA) INH SCH (08:27)
[2018-11-14] MEDS: MOM 30ML SUSPENSION UDC PO SCH (09:00)
[2018-11-14] MEDS ORDERED: ISOVUE-370 76% 100ML VIAL (Q9967) As Ordered ONE (09:08)
[2018-11-14] MEDS ORDERED: POTASSIUM CHLORIDE 10 MEQ SR TABLET PO ONE (10:00)
[2018-11-14] MEDS: TORSEMIDE 20 MG TAB PO SCH (11:13)
[2018-11-14] MEDS: SPIRONOLACTONE 25 MG TAB PO SCH ×2 (11:14→16:27)
[2018-11-14] MEDS: CARVedilol 12.5 MG TAB PO SCH ×2 (11:14→21:30)
[2018-11-14] MEDS: ALLOPURINOL 300 MG TAB PO SCH (11:15)
[2018-11-14] MEDS: PANTOPRAZOLE 40MG INJ (PROTONIX) (C9113) IV SCH (11:15)
[2018-11-14] MEDS: HEPARIN SOD (PORCINE) 5000 UNITS/ML VIAL SQ SCH ×2 (11:16→21:30)
--- NOTE | 2018-11-14 19:21 | REP ---
CT ABDOMEN AND PELVIS WITH IV CONTRAST: TECHNIQUE: Axial contrast enhanced images from the lung bases to the pubic symphysis using 100 mL Isovue 370 intravenous contrast material with multiplanar reformations. COMPARISON: 11/09/2018 There are tiny bilateral effusions, left greater than right. There is mild patchy atelectasis or infiltrate in the visualized lung bases, left greater than right. There are a few tiny cysts at the dome of the liver. The gallbladder is moderately distended containing tiny stones. The spleen is not enlarged. The adrenals and pancreas appear unremarkable. There is no hydronephrosis. There is mild atherosclerotic calcification of the abdominal aorta without aneurysm. Multiple periaortic clips are again noted as well as an IVC filter. No adenopathy is seen. No free air is seen. There is again evidence of partial small bowel obstruction with moderately dilated loops of proximal jejunum unchanged in caliber when compared to the prior CT of 11/09/2018. Transition zone appears to be in the right mid abdomen region again. Distal small bowel is not dilated, nor is the colon. There is very mild scattered free fluid. The urinary bladder is mildly distended and not optimally evaluated. There appears to be a left inguinal hernia containing fat. IMPRESSION: There are again findings of likely partial small bowel obstruction with transition zone in the right mid abdomen not significantly changed when compared to the prior study of 11/09/2018. Mild scattered free fluid with no free air. Very small bilateral pleural effusions with adjacent bibasilar atelectasis/infiltrate. No other new finding. Electronically Signed by Amando Cedeno MD 11/16/2018 04:36 P
--- NOTE | 2018-11-14 21:43 | IPNPDOC ---
Date Seen The patient was seen on 11/14/18. Progress Note SUBJECTIVE: Patient reportedly was nauseous this morning with persistent abdominal discomfort, but had a bowel movement with loose stool. Initially recommended NG tube but patient hesitant about putting it in and states that he feels better already. Afebrile overnight. OBJECTIVE PHYSICAL EXAMINATION: VITAL SIGNS: Please see below. General: No acute distress, Alert Eyes: Normal sclera, EOMI, FELIPE HENT: Atraumatic, neck supple, moist mucous membranes Cardiovascular: Normal rate, normal rhythm. No murmurs appreciated. Pulmonary: Clear to auscultation b/l, no wheezing GI: Soft, nontender, nondistended Skin: Warm and dry Neuro: CN grossly intact. No focal deficits. Strengths equal b/l. Psych: oriented x 3 LABORATORY DATA, IMAGING STUDIES, MICROBIOLOGY: Please see below. DVT prophylaxis ordered?: SCD ASSESSMENT AND PLAN: 1. SBO - persistent abdominal pain with bloating. - Surgery following. Tentatively planned for OR on Tuesday. - NGT needed? patient to discuss with surgery. - Pain control. Zofran PRN for nausea. 2. Acute gout flare - Resolved. - c/w allopurinol. 3. Afib - c/w home meds coreg. Eliquis held due to possible surgical procedure. 4. HTN - c/w Coreg. monitor BP. 5. COPD - not in exacerbation. - Resume home meds. 6. ИВАН - Does not wear CPAP at night only uses O2 nighttime. 7. testicular ca - s/p orchiectomy and LN resection. 8. Lung opacities - Largest visible measures at 19mm currently. - c/w outpatient monitoring. 9. hx of DVT/PE - s/p IVC filter placement. - Eliquis held at this time. VS, I&O, 24H, Fishbone Vital Signs/I&O Vital Signs Date Time Temp Pulse Resp B/P (MAP) Pulse Ox O2 Delivery O2 Flow Rate FiO2 11/14/18 21:30 92 124/65 11/14/18 18:00 98.9 21 98 3.0 11/13/18 23:20 Nasal Cannula I&O- Last 24 Hours up to 6 AM 11/14/18 05:59 Intake Total 1920 ml Output Total 3900 ml Balance -1980 ml Laboratory Data 24H LABS Laboratory Tests 2 11/14/18 05:35: Immature Granulocyte % (Auto) 1.0, White Blood Count 6.0, Red Blood Count 4.48, Hemoglobin 13.0L, Hematocrit 42.2, Mean Corpuscular Volume 94.2, Mean Corpuscular Hemoglobin 29.0, Mean Corpuscular Hemoglobin Concent 30.8L, Red Cell Distribution Width 13.2, Platelet Count 147L, Neutrophils (%) (Auto) 62.2, L ymphocytes (%) (Auto) 23.7L, Monocytes (%) (Auto) 10.8H, Eosinophils (%) (Auto) 1.8, Basophils (%) (Auto) 0.5, Neutrophils # (Auto) 3.8, Lymphocytes # (Auto) 1.4L, Monocytes # (Auto) 0.7, Eosinophils # (Auto) 0.1, Basophils # (Auto) 0.0, Nucleated Red Blood Cells % (auto) 0.0, Anion Gap 4L, Glomerular Filtration Rate > 60.0, Blood Urea Nitrogen 14, Creatinine 0.94, Sodium Level 144, Potassium Level 3.2L, Chloride Level 97L, Carbon Dioxide Level 43H, Calcium Level 8.4L CBC/BMP Laboratory Tests 11/14/18 05:35 Red Blood Count 4.48, Mean Corpuscular Volume 94.2, Mean Corpuscular Hemoglobin 29.0, Mean Corpuscular Hemoglobin Concent 30.8 L, Red Cell Distribution Width 13.2, Neutrophils (%) (Auto) 62.2, Lymphocytes (%) (Auto) 23.7 L, Monocytes (%) (Auto) 10.8 H, Eosinophils (%) (Auto) 1.8, Basophils (%) (Auto) 0.5, Neutrophils # (Auto) 3.8, Lymphocytes # (Auto) 1.4 L, Monocytes # (Auto) 0.7, Eosinophils # (Auto) 0.1, Basophils # (Auto) 0.0, Calcium Level 8.4 L Microbiology Microbiology 11/08/18 Blood Culture - Final, Complete NO GROWTH AFTER 5 DAYS 11/08/18 Blood Culture - Final, Complete NO GROWTH AFTER 5 DAYS KAYLA MARSHALL MD Nov 14, 2018 21:43
[2018-11-15] VITALS (8 sets, daily range): BP systolic 114–118; BP diastolic 64–74; O2SAT 94
[2018-11-15 06:00] LABS: BASO % 0.6 % (0.0-1.0); EOS # 0.2 10^3/uL (0.0-0.5); EOS % 2.4 % (0.0-3.0); HEMATOCRIT 43.4 % (42.0-52.0); HEMOGLOBIN 13.5 g/dl (13.5-17.5); LYMPH # 1.3 10^3/uL (1.5-5.0); LYMPH % 21.4 % (24.0-44.0); MEAN CORPUSCULAR HEMOGLOBIN 29.9 pg (27.0-33.0); MEAN CORPUSCULAR HGB CONC 31.1 g/dl (32.0-36.5); MONO # 0.6 10^3/uL (0.0-0.8); MONO % 8.8 % (0.0-5.0); NEUTROPHILS # 4.1 10^3/uL (1.5-8.5); PLATELET COUNT, AUTOMATED 127 10^3/uL (150-450); RED BLOOD COUNT 4.52 10^6/uL (4.30-6.10); WHITE BLOOD COUNT 6.3 10^3/uL (4.0-10.0)
[2018-11-15 06:30] LABS: BLOOD UREA NITROGEN 11 MG/DL (7-18); CARBON DIOXIDE LEVEL 45 MEQ/L (21-32); CHLORIDE LEVEL 94 MEQ/L (98-107); CREATININE FOR GFR 0.85 MG/DL (0.70-1.30); GLOMERULAR FILTRATION RATE > 60.0 (>49); GLUCOSE, FASTING 88 MG/DL (70-100); POTASSIUM SERUM 3.1 MEQ/L (3.5-5.1); SODIUM LEVEL 142 MEQ/L (136-145)
[2018-11-15] MEDS: ALBUTEROL SULFATE 2.5 MG/0.5 ML INH NEB SOLN NEB SCH ×2 (08:00→15:53)
[2018-11-15] MEDS: SYMBICORT 160/4.5MCG INHALER 6GM INH SCH (08:36)
[2018-11-15] MEDS: TIOTROPIUM INHALER/CAPSULE (SPIRIVA) INH SCH (08:36)
[2018-11-15] MEDS: MOM 30ML SUSPENSION UDC PO SCH (08:42)
[2018-11-15] MEDS: SPIRONOLACTONE 25 MG TAB PO SCH ×2 (08:42→17:59)
[2018-11-15] MEDS: CARVedilol 12.5 MG TAB PO SCH ×2 (08:42→20:28)
[2018-11-15] MEDS: PANTOPRAZOLE 40MG INJ (PROTONIX) (C9113) IV SCH (08:43)
[2018-11-15] MEDS: ALLOPURINOL 300 MG TAB PO SCH (08:43)
[2018-11-15] MEDS: TORSEMIDE 20 MG TAB PO SCH (08:43)
[2018-11-15] MEDS: HEPARIN SOD (PORCINE) 5000 UNITS/ML VIAL SQ SCH (09:00)
[2018-11-15] MEDS: NS 1,000 ML IV SCH ×2 (11:12→20:28)
--- NOTE | 2018-11-15 16:58 | REP ---
ABDOMINAL SERIES: Supine and erect views of the abdomen and pelvis are performed and compared to prior study of 11/12/2018. No free air is seen. Moderately dilated small bowel is again seen in the upper abdomen as on prior studies, not significantly changed. CT 11/14/2018 again showed evidence of probable partial small bowel obstruction. Multiple metallic clips are again seen throughout the abdomen. IVC filter is again noted. Metallic clips are seen overlying the pelvis as well. An accompanying view of the chest demonstrates mild patchy atelectasis or infiltrate in the left base. Heart and mediastinum are unchanged. Electronically Signed by Amando Cedeno MD 11/16/2018 05:00 P
--- NOTE | 2018-11-15 19:25 | IPNPDOC ---
Date Seen The patient was seen on 11/15/18. Progress Note SUBJECTIVE: Patient states that he still feel gassy with distended abdomen. Has not had anymore bowel movement since yesterday. No acute changes noted overnight. OBJECTIVE PHYSICAL EXAMINATION: VITAL SIGNS: Please see below. General: No acute distress, Alert Eyes: Normal sclera, EOMI, FELIPE HENT: Atraumatic, neck supple, moist mucous membranes Cardiovascular: Normal rate, normal rhythm. No murmurs appreciated. Pulmonary: Clear to auscultation b/l, no wheezing GI: Soft, nontender, distended Skin: Warm and dry Neuro: CN grossly intact. No focal deficits. Strengths equal b/l. Psych: oriented x 3 LABORATORY DATA, IMAGING STUDIES, MICROBIOLOGY: Please see below. DVT prophylaxis ordered?: SCD ASSESSMENT AND PLAN: 1. SBO - persistent abdominal pain with bloating. - Surgery following. Tentatively planned for OR on Tuesday. - NGT needed? patient very hesitant about it. - Pain control. Zofran PRN for nausea. 2. Acute gout flare - Resolved. - c/w allopurinol. 3. Afib - c/w home meds coreg. Eliquis held due to possible surgical procedure. 4. HTN - c/w Coreg. monitor BP. 5. COPD - not in exacerbation. - Resume home meds. 6. ИВАН - Does not wear CPAP at night only uses O2 nighttime. 7. testicular ca - s/p orchiectomy and LN resection. 8. Lung opacities - Largest visible measures at 19mm currently. - c/w outpatient monitoring. 9. hx of DVT/PE - s/p IVC filter placement. - Eliquis held at this time, will start on lovenox until the day before procedure. VS, I&O, [facility]H, [facility] Vital Signs/I&O Vital Signs Date Time Temp Pulse Resp B/P (MAP) Pulse Ox O2 Delivery O2 Flow Rate FiO2 11/15/18 18:00 98.3 75 18 116/66 (83) 93 3.0 11/15/18 10:00 Nasal Cannula I&O- Last 24 Hours up to 6 AM 11/15/18 06:00 Intake Total 300 ml Output Total 3850 ml Balance -3550 ml Laboratory Data 24H LABS Laboratory Tests 2 11/15/18 05:24: Immature Granulocyte % (Auto) 0.8, White Blood Count 6.3, Red Blood Count 4.52, Hemoglobin 13.5, Hematocrit 43.4, Mean Corpuscular Volume 96.0, Mean Corpuscular Hemoglobin 29.9, Mean Corpuscular Hemoglobin Concent 31.1L, Red Cell Distribution Width 13.3, Platelet Count 127L, Neutrophils (%) (Auto) 66.0, Lymphocytes (%) (Auto) 21.4L, Monocytes (%) (Auto) 8.8H, Eosinophils (%) (Auto) 2.4, Basophils (%) (Auto) 0.6, Neutrophils # (Auto) 4.1, Lymphocytes # (Auto) 1.3L, Monocytes # (Auto) 0.6, Eosinophils # (Auto) 0.2, Basophils # (Auto) 0.0, Nucleated Red Blood Cells % (auto) 0.0, Anion Gap 3L, Glomerular Filtration Rate > 60.0, Blood Urea Nitrogen 11, Creatinine 0.85, Sodium Level 142, Potassium Level 3.1L, Chloride Level 94L, Carbon Dioxide Level 45H, Calcium Level 8.0L CBC/BMP Laboratory Tests 11/15/18 05:24 Red Blood Count 4.52, Mean Corpuscular Volume 96.0, Mean Corpuscular Hemoglobin 29.9, Mean Corpuscular Hemoglobin Concent 31.1 L, Red Cell Distribution Width 13.3, Neutrophils (%) (Auto) 66.0, Lymphocytes (%) (Auto) 21.4 L, Monocytes (%) (Auto) 8.8 H, Eosinophils (%) (Auto) 2.4, Basophils (%) (Auto) 0.6, Neutrophils # (Auto) 4.1, Lymphocytes # (Auto) 1.3 L, Monocytes # (Auto) 0.6, Eosinophils # (Auto) 0.2, Basophils # (Auto) 0.0, Calcium Level 8.0 L Microbiology Microbiology 11/08/18 Blood Culture - Final, Complete NO GROWTH AFTER 5 DAYS 11/08/18 Blood Culture - Final, Complete NO GROWTH AFTER 5 DAYS KAYLA MARSHALL MD Nov 15, 2018 19:25
[2018-11-15] MEDS: ENOXAPARIN 150 MG/ML SYR (J1650) SC SCH (21:49)
[2018-11-16] VITALS (9 sets, daily range): BP systolic 108–118; BP diastolic 52–83; O2SAT 93–98
[2018-11-16] MEDS: NS 1,000 ML IV SCH ×2 (05:54→16:11)
[2018-11-16 06:41] LABS: HEMATOCRIT 42.7 % (42.0-52.0); HEMOGLOBIN 13.2 g/dl (13.5-17.5); MEAN CORPUSCULAR HGB CONC 30.9 g/dl (32.0-36.5); MEAN CORPUSCULAR VOLUME 93.8 fl (80.0-96.0); PLATELET COUNT, AUTOMATED 133 10^3/uL (150-450); RED BLOOD COUNT 4.55 10^6/uL (4.30-6.10)
[2018-11-16 07:05] LABS: BLOOD UREA NITROGEN 14 MG/DL (7-18); CALCIUM LEVEL 8.4 MG/DL (8.8-10.2); CARBON DIOXIDE LEVEL 41 MEQ/L (21-32); CHLORIDE LEVEL 95 MEQ/L (98-107); CREATININE FOR GFR 0.78 MG/DL (0.70-1.30); GLOMERULAR FILTRATION RATE > 60.0 (>49); GLUCOSE, FASTING 72 MG/DL (70-100); POTASSIUM SERUM 3.4 MEQ/L (3.5-5.1); SODIUM LEVEL 140 MEQ/L (136-145)
[2018-11-16] MEDS: ALBUTEROL SULFATE 2.5 MG/0.5 ML INH NEB SOLN NEB SCH ×4 (08:00→23:37)
[2018-11-16] MEDS: MOM 30ML SUSPENSION UDC PO SCH (08:18)
[2018-11-16] MEDS: TORSEMIDE 20 MG TAB PO SCH (08:18)
[2018-11-16] MEDS: PANTOPRAZOLE 40MG INJ (PROTONIX) (C9113) IV SCH (08:18)
[2018-11-16] MEDS: SPIRONOLACTONE 25 MG TAB PO SCH ×2 (08:19→17:25)
[2018-11-16] MEDS: ENOXAPARIN 150 MG/ML SYR (J1650) SC SCH (08:19)
[2018-11-16] MEDS: ALLOPURINOL 300 MG TAB PO SCH (08:19)
[2018-11-16] MEDS: CARVedilol 12.5 MG TAB PO SCH ×2 (08:20→20:53)
[2018-11-16] MEDS: SYMBICORT 160/4.5MCG INHALER 6GM INH SCH ×2 (08:46→20:38)
[2018-11-16] MEDS: TIOTROPIUM INHALER/CAPSULE (SPIRIVA) INH SCH (08:46)
[2018-11-16] MEDS ORDERED: POTASSIUM CHLORIDE 10 MEQ SR TABLET PO ONE (10:00)
--- NOTE | 2018-11-16 11:23 | REP ---
KUB ABDOMEN: Three KUB films of the abdomen and pelvis are performed and compared to the prior study of 11/15/2018. Moderately dilated small bowel loops are again identified in the upper abdomen similar to the prior study. Distal small bowel and colon are not dilated. The remainder of the study is unchanged. IMPRESSION: Essentially stable exam. Electronically Signed by Amando Cedeno MD 11/16/2018 05:36 P
--- NOTE | 2018-11-16 19:41 | IPNPDOC ---
Date Seen The patient was seen on 11/16/18. Progress Note SUBJECTIVE: Patient states that he feels slightly better. less gassy with less abdominal distension. No acute events reported overnight. OBJECTIVE PHYSICAL EXAMINATION: VITAL SIGNS: Please see below. General: No acute distress, Alert Eyes: Normal sclera, EOMI, FELIPE HENT: Atraumatic, neck supple, moist mucous membranes Cardiovascular: Normal rate, normal rhythm. No murmurs appreciated. Pulmonary: Clear to auscultation b/l, no wheezing GI: Soft, nontender, distended, bruised in lower abdomen Skin: Warm and dry Neuro: CN grossly intact. No focal deficits. Strengths equal b/l. Psych: oriented x 3 LABORATORY DATA, IMAGING STUDIES, MICROBIOLOGY: Please see below. DVT prophylaxis ordered?: SCD ASSESSMENT AND PLAN: 1. SBO - persistent abdominal pain with bloating. - Surgery following. Tentatively planned for OR on Tuesday. - NGT needed? patient very hesitant about it. - Pain control. Zofran PRN for nausea. 2. Acute gout flare - Resolved. - c/w allopurinol. 3. Afib - c/w home meds coreg. Eliquis held due to possible surgical procedure. 4. HTN - c/w Coreg. monitor BP. 5. COPD - not in exacerbation. - Resume home meds. 6. ИВАН - Does not wear CPAP at night only uses O2 nighttime. 7. testicular ca - s/p orchiectomy and LN resection. 8. Lung opacities - Largest visible measures at 19mm currently. - c/w outpatient monitoring. 9. hx of DVT/PE - s/p IVC filter placement. - Eliquis held at this time. VS, I&O, 24H, [facility] Vital Signs/I&O Vital Signs Date Time Temp Pulse Resp B/P (MAP) Pulse Ox O2 Delivery O2 Flow Rate FiO2 11/16/18 18:00 98.6 86 18 108/72 (84) 97 3.0 11/16/18 15:32 Nasal Cannula I&O- Last 24 Hours up to 6 AM 11/16/18 06:00 Intake Total 1300 ml Output Total 1775 ml Balance -475 ml Laboratory Data 24H LABS Laboratory Tests 2 11/16/18 05:21: Nucleated Red Blood Cells % (auto) 0.0, Anion Gap 4L, Glomerular Filtration Rate > 60.0, Blood Urea Nitrogen 14, Creatinine 0.78, Sodium Level 140, Potassium Level 3.4L, Chloride Level 95L, Carbon Dioxide Level 41H, Calcium Level 8.4L CBC/BMP Laboratory Tests 11/16/18 05:21 Red Blood Count 4.55, Mean Corpuscular Volume 93.8, Mean Corpuscular Hemoglobin 29.0, Mean Corpuscular Hemoglobin Concent 30.9 L, Red Cell Distribution Width 13.1, Calcium Level 8.4 L Microbiology Microbiology 11/08/18 Blood Culture - Final, Complete NO GROWTH AFTER 5 DAYS 11/08/18 Blood Culture - Final, Complete NO GROWTH AFTER 5 DAYS KAYLA MARSHALL MD Nov 16, 2018 19:41
[2018-11-17] VITALS (7 sets, daily range): BP systolic 94–138; BP diastolic 48–88
[2018-11-17] MEDS: NS 1,000 ML IV SCH (01:16)
[2018-11-17 06:47] LABS: HEMATOCRIT 41.3 % (42.0-52.0); HEMOGLOBIN 12.8 g/dl (13.5-17.5); MEAN CORPUSCULAR HEMOGLOBIN 28.9 pg (27.0-33.0); MEAN CORPUSCULAR VOLUME 93.2 fl (80.0-96.0); PLATELET COUNT, AUTOMATED 140 10^3/uL (150-450); RED BLOOD COUNT 4.43 10^6/uL (4.30-6.10); WHITE BLOOD COUNT 6.3 10^3/uL (4.0-10.0)
[2018-11-17] MEDS: TIOTROPIUM INHALER/CAPSULE (SPIRIVA) INH SCH (07:06)
[2018-11-17 07:10] LABS: BLOOD UREA NITROGEN 12 MG/DL (7-18); CALCIUM LEVEL 8.2 MG/DL (8.8-10.2); CARBON DIOXIDE LEVEL 35 MEQ/L (21-32); CHLORIDE LEVEL 99 MEQ/L (98-107); GLOMERULAR FILTRATION RATE > 60.0 (>49); GLUCOSE, FASTING 75 MG/DL (70-100); POTASSIUM SERUM 3.5 MEQ/L (3.5-5.1); SODIUM LEVEL 141 MEQ/L (136-145)
[2018-11-17] MEDS: ALBUTEROL SULFATE 2.5 MG/0.5 ML INH NEB SOLN NEB SCH ×3 (08:00→23:48)
[2018-11-17] MEDS: SYMBICORT 160/4.5MCG INHALER 6GM INH SCH ×2 (08:08→20:20)
--- NOTE | 2018-11-17 08:44 | IPNPDOC ---
Text Note Date of Service The patient was seen on 11/17/18. NOTE Patient tolerated soft food for dinner last night and still feels well today. He is passing flatus. He had 4 BMs yesterday without laxatives. Abdominal exam shows only minimally distended this time. Nontender on palpation. He has active bowel sounds. Impression/Plan SBO resolving by itself continue soft foods if tolerating ok to go home back on his eliquis VS,Fishbone, I+O VS, Fishbone, I+O Laboratory Tests 11/17/18 05:16 Red Blood Count 4.43, Mean Corpuscular Volume 93.2, Mean Corpuscular Hemoglobin 28.9, Mean Corpuscular Hemoglobin Concent 31.0 L, Red Cell Distribution Width 13.2, Calcium Level 8.2 L Vital Signs Date Time Temp Pulse Resp B/P (MAP) Pulse Ox O2 Delivery O2 Flow Rate FiO2 11/17/18 07:08 Nasal Cannula 3.0 11/17/18 06:00 98.4 80 19 132/77 (95) 97 I&O- Last 24 Hours up to 6 AM 11/17/18 06:00 Intake Total 3260 ml Output Total 2350 ml Balance 910 ml DARSHAN RIBEIRO MD Nov 17, 2018 08:44
[2018-11-17] MEDS: TORSEMIDE 20 MG TAB PO SCH (09:50)
[2018-11-17] MEDS: ALLOPURINOL 300 MG TAB PO SCH (09:50)
[2018-11-17] MEDS: PANTOPRAZOLE 40MG INJ (PROTONIX) (C9113) IV SCH (09:50)
[2018-11-17] MEDS: SPIRONOLACTONE 25 MG TAB PO SCH ×2 (09:50→17:56)
[2018-11-17] MEDS: CARVedilol 12.5 MG TAB PO SCH ×2 (09:54→20:23)
[2018-11-17] MEDS: MOM 30ML SUSPENSION UDC PO SCH (09:54)
--- NOTE | 2018-11-17 17:44 | IPNPDOC ---
Date Seen The patient was seen on 11/17/18. Progress Note SUBJECTIVE: Patient reported feeling slightly less bloated today. No acute events reported overnight. Tolerating his diet. Denies significant nausea. OBJECTIVE PHYSICAL EXAMINATION: VITAL SIGNS: Please see below. General: No acute distress, Alert Eyes: Normal sclera, EOMI, FELIPE HENT: Atraumatic, neck supple, moist mucous membranes Cardiovascular: Normal rate, normal rhythm. No murmurs appreciated. Pulmonary: Clear to auscultation b/l, no wheezing GI: Soft, nontender, distended, bruised in lower abdomen Skin: Warm and dry Neuro: CN grossly intact. No focal deficits. Strengths equal b/l. Psych: oriented x 3 LABORATORY DATA, IMAGING STUDIES, MICROBIOLOGY: Please see below. DVT prophylaxis ordered?: SCD ASSESSMENT AND PLAN: 1. SBO - bloating improving, like resolving. Having bowel movements with + bowel sounds. - Surgery following. Plan to advance diet and likely can be d/c in the coming day. - Pain control. Zofran PRN for nausea. 2. Acute gout flare - Resolved. - c/w allopurinol. 3. Afib - c/w home meds coreg. Eliquis held due to possible surgical procedure. 4. HTN - c/w Coreg. monitor BP. 5. COPD - not in exacerbation. - Resume home meds. 6. ИВАН - Does not wear CPAP at night only uses O2 nighttime. 7. testicular ca - s/p orchiectomy and LN resection. 8. Lung opacities - Largest visible measures at 19mm currently. - c/w outpatient monitoring. 9. hx of DVT/PE - s/p IVC filter placement. - Eliquis held at this time. will c/w Lovenox incase anything changes. Resume eliquis on discharge. VS, I&O, 24H, Fishbone Vital Signs/I&O Vital Signs Date Time Temp Pulse Resp B/P (MAP) Pulse Ox O2 Delivery O2 Flow Rate FiO2 11/17/18 09:54 80 130/76 11/17/18 09:30 3.0 11/17/18 08:00 97.0 18 94 11/17/18 07:08 Nasal Cannula I&O- Last 24 Hours up to 6 AM0 11/17/18 05:59 Intake Total 3260 ml Output Total 2350 ml Balance 910 ml Laboratory Data 24H LABS Laboratory Tests 2 11/17/18 05:16: Nucleated Red Blood Cells % (auto) 0.0, Anion Gap 7L, Glomerular Filtration Rate > 60.0, Blood Urea Nitrogen 12, Creatinine 0.80, Sodium Level 141, Potassium Level 3.5, Chloride Level 99, Carbon Dioxide Level 35H, Calcium Level 8.2L CBC/BMP Laboratory Tests 11/17/18 05:16 Red Blood Count 4.43, Mean Corpuscular Volume 93.2, Mean Corpuscular Hemoglobin 28.9, Mean Corpuscular Hemoglobin Concent 31.0 L, Red Cell Distribution Width 13.2, Calcium Level 8.2 L Microbiology Microbiology 11/08/18 Blood Culture - Final, Complete NO GROWTH AFTER 5 DAYS 11/08/18 Blood Culture - Final, Complete NO GROWTH AFTER 5 DAYS KAYLA MARSHALL MD Nov 17, 2018 17:44
[2018-11-18 02:00] VITALS: BP 117/70
[2018-11-18 06:00] VITALS: BP 115/70
[2018-11-18 06:11] LABS: HEMATOCRIT 40.7 % (42.0-52.0); HEMOGLOBIN 12.5 g/dl (13.5-17.5); MEAN CORPUSCULAR HEMOGLOBIN 29.3 pg (27.0-33.0); MEAN CORPUSCULAR HGB CONC 30.7 g/dl (32.0-36.5); MEAN CORPUSCULAR VOLUME 95.5 fl (80.0-96.0); PLATELET COUNT, AUTOMATED 124 10^3/uL (150-450); RED BLOOD COUNT 4.26 10^6/uL (4.30-6.10); WHITE BLOOD COUNT 6.1 10^3/uL (4.0-10.0)
[2018-11-18 06:30] LABS: BLOOD UREA NITROGEN 10 MG/DL (7-18); CALCIUM LEVEL 8.1 MG/DL (8.8-10.2); CARBON DIOXIDE LEVEL 37 MEQ/L (21-32); CHLORIDE LEVEL 100 MEQ/L (98-107); CREATININE FOR GFR 0.97 MG/DL (0.70-1.30); GLOMERULAR FILTRATION RATE > 60.0 (>49); GLUCOSE, FASTING 102 MG/DL (70-100); POTASSIUM SERUM 3.3 MEQ/L (3.5-5.1); SODIUM LEVEL 142 MEQ/L (136-145)
[2018-11-18] MEDS: SYMBICORT 160/4.5MCG INHALER 6GM INH SCH (07:23)
[2018-11-18] MEDS: TIOTROPIUM INHALER/CAPSULE (SPIRIVA) INH SCH (07:23)
[2018-11-18] MEDS: ALBUTEROL SULFATE 2.5 MG/0.5 ML INH NEB SOLN NEB SCH (08:00)
[2018-11-18] MEDS ORDERED: POTASSIUM CHLORIDE 10 MEQ SR TABLET PO ONE (09:00)
[2018-11-18] MEDS: PANTOPRAZOLE 40MG INJ (PROTONIX) (C9113) IV SCH (09:10)
[2018-11-18] MEDS: SPIRONOLACTONE 25 MG TAB PO SCH (09:11)
[2018-11-18] MEDS: TORSEMIDE 20 MG TAB PO SCH (09:11)
[2018-11-18] MEDS: ALLOPURINOL 300 MG TAB PO SCH (09:12)
[2018-11-18] MEDS: MOM 30ML SUSPENSION UDC PO SCH (09:12)
[2018-11-18] MEDS: CARVedilol 12.5 MG TAB PO SCH (09:12)
[2018-11-18 10:00] VITALS: BP 112/58
--- NOTE | 2018-11-18 13:02 | DS.PDOC ---
Discharge Summary General Date of Admission Nov 08, 2018 at 12:35 Date of Discharge 11/18/18 Discharge Summary PROCEDURES PERFORMED DURING STAY: [None]. ADMITTING DIAGNOSES: 1. SBO 2. COPD 3. HLD 4. HTN 5. BPH 6. Gout 7. ИВАН DISCHARGE DIAGNOSES: 1. SBO 2. COPD 3. HLD 4. HTN 5. BPH 6. Gout 7. ИВАН COMPLICATIONS/CHIEF COMPLAINT: Small Bowel Obstruction. HISTORY OF PRESENT ILLNESS: "Terell Mujica is a 63-year-old patient of the [facility] who is being admitted to the hospitalist service with small bowel obstruction. The case has been discussed with Dr. Salvador in the emergency room, who will be the surgical services tech. The patient was admitted with small bowel obstruction. He has had abdominal pain, nausea, vomiting. He has an nasogastric (NG) tube placed. He has already drained 3 of nasogastric suctioning and feels better. He has history of chronic obstructive pulmonary disease (COPD). He continues to smoke. He has had frequent hospitalizations for COPD exacerbation. He was admitted to this hospital 07/2018 with acute bacterial prostatitis with sepsis. He has a history of atrial fibrillation, on Eliquis for thromboembolic prophylaxis. He has severe COPD. Dr. Castañeda used to follow him from [facility] until he started to be followed primarily by the [facility]. Back in 2014, he had an FEV1 of 1.5, FEV1/FVC ratio COPD. Has obstructive sleep apnea (ИВАН). He does not wear his continuous positive airway pressure (CPAP), but he should. History of cardiomyopathy. Echocardiogram 02/2018 showed ejection fraction of 50%, mildly dilated left ventricle, mildly dilated left atrium, dilated aortic root, elevated right-sided pressures. He has a history of pulmonary embolism and has an inferior vena cava (IVC) filter in place. Hypertensive heart disease. Testicular cancer with orchiectomy and lymph node resection in 2018. Inguinal hernia repair and a history of nonsustained ventricular tachycardia (V-TACH)." HOSPITAL COURSE: Patient was monitored and treated conservatively with slow improvement of symptoms. He continues to feel bloated but less each day with noted bowel sounds and bowel movements. Patient was monitored and re-assessed by surgery through course of admission and initially planned for surgery yesterday but was cancelled as patient symptoms continued to improve. He was restarted on diet and consume PO without any problems including and nausea or vomiting. To be discharged to f/u with PMD, also surgery PRN. DISCHARGE MEDICATIONS: Please see below. ALLERGIES: Please see below. PHYSICAL EXAMINATION ON DISCHARGE: VITAL SIGNS: Please see below. General: No acute distress, Alert Eyes: Normal sclera, EOMI, FELIPE HENT: Atraumatic, neck supple, moist mucous membranes Cardiovascular: Normal rate, normal rhythm. No murmurs appreciated. Pulmonary: Clear to auscultation b/l, no wheezing GI: Soft, nontender, distended, bruised in lower abdomen Skin: Warm and dry Neuro: CN grossly intact. No focal deficits. Strengths equal b/l. Psych: oriented x 3 LABORATORY DATA: Please see below. IMAGING: CT Abdomen/Pelvis (11/09)- Impression: 1. Partial small bowel obstruction pattern with dilated mid jejunal loops and a point of transition adjacent to a localized peritoneal fluid collection. Likely due to adhesions. No obstructive lesion seen. No free air. 2. Distending gallbladder containing tiny gravel like calculi. 3. Left inguinal hernia transmitting abdominal fat. 4. Fibronodular opacities in the lower lobes of the lungs bilaterally. The largest currently visible in the left lower lobe measuring 19 mm. Abdomen/Pelvis CT (11/14)- IMPRESSION: There are again findings of likely partial small bowel obstruction with transition zone in the right mid abdomen not significantly changed when compared to the prior study of 11/09/2018. Mild scattered free fluid with no free air. Very small bilateral pleural effusions with adjacent bibasilar atelectasis/infiltrate. No other new finding. Abdomen XR (11/16/18)- IMPRESSION: Essentially stable exam. ACTIVITY: [As tolerated]. DIET: Soft DISCHARGE PLAN: f/u PMD f/u Surgery PRN DISPOSITION: Home. DISCHARGE INSTRUCTIONS: f/u PMD f/u Surgery PRN ITEMS TO FOLLOWUP ON ON OUTPATIENT: None DISCHARGE CONDITION: [Stable]. TIME SPENT ON DISCHARGE: 32 minutes. Vital Signs/I&Os Vital Signs Date Time Temp Pulse Resp B/P (MAP) Pulse Ox O2 Delivery O2 Flow Rate FiO2 11/18/18 10:00 96.2 64 18 112/58 (76) 98 3.0 11/18/18 07:28 Nasal Cannula I&O- Last 24 Hours up to 6 AM 11/18/18 06:00 Intake Total 1795 ml Output Total 1350 ml Balance 445 ml Laboratory Data Labs 24H Laboratory Tests 2 11/18/18 05:22: Nucleated Red Blood Cells % (auto) 0.0, Anion Gap 5L, Glomerular Filtration Rate > 60.0, Blood Urea Nitrogen 10, Creatinine 0.97, Sodium Level 142, Potassium Level 3.3L, Chloride Level 100, Carbon Dioxide Level 37H, Calcium Level 8.1L CBC/BMP Laboratory Tests 11/18/18 05:22 Red Blood Count 4.26 L, Mean Corpuscular Volume 95.5, Mean Corpuscular Hemoglobin 29.3, Mean Corpuscular Hemoglobin Concent 30.7 L, Red Cell Distribution Width 13.3, Calcium Level 8.1 L Microbiology Microbiology 11/08/18 Blood Culture - Final, Complete NO GROWTH AFTER 5 DAYS 11/08/18 Blood Culture - Final, Complete NO GROWTH AFTER 5 DAYS Discharge Medications Scheduled Acetazolamide (Acetazolamide) 250 Mg Tablet, 250 MG PO BID, (Reported) Allopurinol (Zyloprim) 300 Mg Tablet, 300 MG PO DAILY, (Reported) Apixaban (Eliquis) 5 Mg Tab, 5 MG PO BID, (Reported) Atorvastatin Calcium (Atorvastatin Calcium) 80 Mg Tablet, 40 MG PO DAILY, (Reported) Budesonide/Formoterol (Symbicort 160-4.5 Mcg Inhaler) 60 Puff/Inhaler Aers, 2 PUFF INH BID, (Reported) Carvedilol (Carvedilol) 25 Mg Tablet, 25 MG PO BID, (Reported) Cholecalciferol (Vitamin D3) (Vitamin D3) 1,000 Unit Tablet, 2,000 UNIT PO DAILY, (Reported) Magnesium Oxide (Magnesium Oxide) 400 Mg Tablet, 400 MG PO BID, (Reported) Potassium Chloride (Potassium Chloride) 10 Meq Tab.er.prt, 30 MEQ PO DAILY, (Reported) Spironolactone (Spironolactone) 25 Mg Tablet, 25 MG PO BID, (Reported) Tiotropium [place] (Spiriva) 18 Mcg Cap.w.dev, 1 CAP INH DAILY, (Reported) INSTRUCTED TO REPEAT INHALATION A SECOND TIME WITH SAME CAPSULE TO ENSURE FULL DOSE DELIVERY Torsemide (Torsemide) 20 Mg Tablet, 40 MG PO DAILY, (Reported) Scheduled PRN Albuterol Sulf (Albuterol Sulfate) 2.5 Mg/3 Ml Nebu, 2.5 MG INH Q6H PRN for SHORTNESS OF BREATH, (Reported) Albuterol Sulfate (Ventolin Hfa) 108 Mcg/Act Aer, 2 PUFF INH QID PRN for SHORTNESS OF BREATH, (Reported) Carboxymethylcellulose Sodium (Refresh Tears) 15 Ml Drops, 1 DROP OU QID PRN for DRY EYES, (Reported) Fluticasone Propionate (Fluticasone Propionate) 15.8 Ml [place].susp, 2 SPR NARES DAILY PRN for CONGESTION, (Reported) Ipratropium/Albuterol Sulfate (Iprat-Albut 0.5-3(2.5) mg/3 ml) 1 Micheline Micheline, 1 VIAL INH QID PRN for SHORTNESS OF BREATH, (Reported) Allergies Coded Allergies: No Known Drug Allergies (Verified Allergy, Unknown, 08/16/18) KAYLA MARSHALL MD Nov 18, 2018 13:02
== END 2018-11-18 13:13 | disposition home or self-care (01) | DRG 389 ==
LOC: EDBD 08:17 → M ED 08:17 → EEVIPCON 12:35 → M ED INP 12:35 → M MSPAV 14:41
PROVIDERS: ADMIT Family Medicine; ATTEND Student in an Organized Health Care Education/Training Program
DX: K56.51 Intestinal adhesions [bands], with partial obstruction (principal); Z68.41 Body mass index [BMI] 40.0-44.9, adult; J96.11 Chronic respiratory failure with hypoxia; J44.9 Chronic obstructive pulmonary disease, unspecified; I11.9 Hypertensive heart disease without heart failure; E66.01 Morbid (severe) obesity due to excess calories; G47.33 Obstructive sleep apnea (adult) (pediatric); M10.9 Gout, unspecified; I48.2 Chronic atrial fibrillation; Z79.01 Long term (current) use of anticoagulants; Z86.711 Personal history of pulmonary embolism; F17.200 Nicotine dependence, unspecified, uncomplicated; Z85.47 Personal history of malignant neoplasm of testis; K40.90 Unilateral inguinal hernia, without obstruction or gangrene, not specified as recurrent; Z79.899 Other long term (current) drug therapy; E78.5 Hyperlipidemia, unspecified; Z86.718 Personal history of other venous thrombosis and embolism

== ENCOUNTER 2018-11-28 13:47 | Emergency (ER) | payer OTHER ==
[~2018-11-28] VITALS: Ht 190.5 cm; Wt 145.4 kg
[2018-11-28] MEDS ORDERED: NS 1,000 ML IV ONE (15:00)
[2018-11-28] MEDS ORDERED: PANTOPRAZOLE 40MG INJ (PROTONIX) (C9113) IV ONE (15:00)
[2018-11-28] MEDS ORDERED: ONDANSETRON 4MG/2ML VIAL (J2405) IV ONE (15:00)
[2018-11-28] MEDS ORDERED: KETOROLAC 30 MG/ML VIAL (J1885) IV ONE (15:00)
[2018-11-28 15:18] LABS: HEMATOCRIT 42.8 % (42.0-52.0); MEAN CORPUSCULAR HEMOGLOBIN 29.1 pg (27.0-33.0); MEAN CORPUSCULAR HGB CONC 32.7 g/dl (32.0-36.5); PLATELET COUNT, AUTOMATED 173 10^3/uL (150-450); RED BLOOD COUNT 4.81 10^6/uL (4.30-6.10); WHITE BLOOD COUNT 12.2 10^3/uL (4.0-10.0)
[2018-11-28 15:28] LABS: ALBUMIN 1.9 GM/DL (3.2-5.2); ALT/SGPT 59 U/L (12-78); BILIRUBIN,DIRECT 0.4 MG/DL (0.0-0.2); BILIRUBIN,TOTAL 0.7 MG/DL (0.2-1.0); BLOOD UREA NITROGEN 55 MG/DL (7-18); CALCIUM LEVEL 8.4 MG/DL (8.8-10.2); CARBON DIOXIDE LEVEL 27 MEQ/L (21-32); CHLORIDE LEVEL 99 MEQ/L (98-107); CK-MB VALUE MASS < 1.0 NG/ML (<3.6); CPK CREATINE PHOSPHOKINASE 21 U/L (39-308); CREATININE FOR GFR 1.19 MG/DL (0.70-1.30); GLOMERULAR FILTRATION RATE > 60.0 (>49); GLUCOSE, FASTING 147 MG/DL (70-100); LIPASE 112 U/L (73-393); MB/CK RELATIVE INDEX 4.76 (< OR =4); POTASSIUM SERUM 3.8 MEQ/L (3.5-5.1); SODIUM LEVEL 137 MEQ/L (136-145); TOTAL PROTEIN 5.6 GM/DL (6.4-8.2); TROPONIN I < 0.02 NG/ML (< 0.10)
[2018-11-28 15:31] LABS: INR 1.73
[2018-11-28 15:52] LABS: ATYPICAL LYMPH 1 % (0-5); LYMPHOCYTES 7 % (16-44); MONOCYTES 8 % (0-5); NEUTROPHILS 81 % (28-66); PLATELET ESTIMATE NORMAL (NORMAL)
[2018-11-28 15:53] LABS: BURR CELLS 1+; POIKILOCYTOSIS 1+
[2018-11-28 16:55] LABS: AMYLASE 27 U/L (25-115)
[2018-11-28] MEDS ORDERED: ZOFR4TAB16 PO (17:30)
[2018-11-28] MEDS ORDERED: PERCOCET 5MG/325MG TAB PO ONE (17:30)
[2018-11-28] MEDS ORDERED: AUGM875T28 PO (17:30)
[2018-11-28] MEDS ORDERED: PERC5TAB12 PO (17:30)
--- NOTE | 2018-11-28 17:39 | REP ---
CT abdomen pelvis without IV or oral contrast: History: Distension. Comparison CT study November 14, 2018. CT findings: Preliminary digital advertisement distributor radiograph shows numerous scattered surgical clips. Bowel gas pattern is unremarkable. On lung window settings, there is spiculated nodular opacity in the left lower lobe of the lung which it is actually somewhat improved from recent prior studies of 11/14/2018 and 11/09/2018. This consistent with gradually resolving atelectasis or infiltrate. There is marked distension of the gallbladder today increased from the prior study. There is diffuse new gallbladder wall thickening and pericholecystic streaking and edema is present. There are tiny gravel like calcified gallstones. The gallbladder measures up to 16 cm in greatest diameter today, 12 cm previously. It measures 9.3 cm in oblique anteroposterior dimension by 8.7 cm in craniocaudal span. The acute change from the 11/14/2018 is suspicious for acute cholecystitis. There is no evidence of ascites or free air. There is a left inguinal hernia again noted transmitting abdominal fat. There are numerous clips in the retroperitoneum the right abdomen and left lower quadrant as before. Small and large bowel loops show some air-filled loops but no dilation or obstruction. Study is otherwise unchanged. Impression: Acute and rather marked distension of the gallbladder with gallbladder wall thickening and pericholecystic fluid and edema; all of which is new. There are tiny gravel like calcified gallstones. Findings are compatible with acute cholecystitis. Electronically Signed by Benjamin Calloway MD 11/29/2018 07:44 A
[2018-11-28 18:00] VITALS: BP 103/67
--- NOTE | 2018-11-29 07:36 | ECGEPIP ---
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
== END 2018-11-28 18:56 | disposition home or self-care (01) ==
LOC: EDBD 13:47 → M ED 13:47
DX: K81.9 Cholecystitis, unspecified (principal); J44.9 Chronic obstructive pulmonary disease, unspecified; Z99.81 Dependence on supplemental oxygen; Z87.891 Personal history of nicotine dependence
CPT/HCPCS: 36415; 74176; 80048; 80076; 81001; 82150; 82550; 82553; 83690; 84484; 85025; 85610; 93005; 93041; 96361; 96374; 96375; 99285; C9113; J1885; J2405

== ENCOUNTER 2018-12-04 15:59 | Inpatient (IN) | payer OTHER ==
[~2018-12-04] VITALS: Ht 190.5 cm; Wt 134.7 kg
[~2018-12-04 15:59] MED LIST changes: +AUGM875T28 PO; +PERC5TAB12 PO; +ZOFR4TAB16 PO
[2018-12-04 16:48] LABS: BASO # 0.1 10^3/uL (0.0-0.2); BASO % 0.7 % (0.0-1.0); EOS % 0.1 % (0.0-3.0); HEMOGLOBIN 16.5 g/dl (13.5-17.5); LYMPH # 1.3 10^3/uL (1.5-5.0); LYMPH % 7.6 % (24.0-44.0); MEAN CORPUSCULAR HEMOGLOBIN 29.3 pg (27.0-33.0); MEAN CORPUSCULAR HGB CONC 32.4 g/dl (32.0-36.5); MEAN CORPUSCULAR VOLUME 90.4 fl (80.0-96.0); MONO # 0.8 10^3/uL (0.0-0.8); MONO % 4.8 % (0.0-5.0); NEUTROPHILS # 14.4 10^3/uL (1.5-8.5); PLATELET COUNT, AUTOMATED 278 10^3/uL (150-450); RED BLOOD COUNT 5.64 10^6/uL (4.30-6.10); WHITE BLOOD COUNT 17.3 10^3/uL (4.0-10.0)
[2018-12-04] MEDS ORDERED: NS 1,000 ML IV SCH (17:00)
[2018-12-04] MEDS ORDERED: ONDANSETRON 4MG/2ML VIAL (J2405) IV ONE (17:00)
[2018-12-04] MEDS ORDERED: MORPHINE 4 MG/ML 1ML VIAL/SYRINGE (J2270) IV ONE (17:00)
[2018-12-04] MEDS: GASTROGRAFIN SOLUTION 30ML PO SCH ×2 (17:14→17:46)
[2018-12-04 17:16] LABS: ALBUMIN 2.2 GM/DL (3.2-5.2); BILIRUBIN,DIRECT 0.3 MG/DL (0.0-0.2); BILIRUBIN,TOTAL 0.9 MG/DL (0.2-1.0); CALCIUM LEVEL 8.9 MG/DL (8.8-10.2); CREATININE FOR GFR 1.33 MG/DL (0.70-1.30); GLOMERULAR FILTRATION RATE 57.8 (>49); POTASSIUM SERUM 4.9 MEQ/L (3.5-5.1); TOTAL PROTEIN 6.2 GM/DL (6.4-8.2)
[2018-12-04] MEDS ORDERED: ISOVUE-370 76% 100ML VIAL (Q9967) As Ordered ONE (18:32)
--- NOTE | 2018-12-04 19:57 | REPVR ---
PROCEDURE INFORMATION: Exam: CT Abdomen And Pelvis With Contrast Exam date and time: 12/04/2018 6:44 PM Clinical history: 63 years old, male; Abdominal pain; Generalized; Additional info: Abd pain, distention TECHNIQUE: Imaging protocol: Computed tomography of the abdomen and pelvis with intravenous contrast. Radiation optimization: All CT scans at this facility use at least one of these dose optimization techniques: automated exposure control; mA and/or kV adjustment per patient size (includes targeted exams where dose is matched to clinical indication); or iterative reconstruction. Contrast material: ISOVUE 370; Contrast volume: 100 ml; Contrast route: IV; COMPARISON: CT ABD PELVIS WITH CONTRAST 11/14/2018 9:14 AM FINDINGS: Lungs: Small focal area of consolidation in the left lower lobe, recommend followup. Liver: evidence of ruptured acute cholecystitis, with adjacent liver involvement. Gallbladder and bile ducts: Markedly enlarged, and inflamed gallbladder with adjacent stranding, and irregular wall thickening. There is pericholecystic fluid/abscess. Pancreas: Pancreas atrophy. Spleen: Normal. No splenomegaly. Adrenals: Normal. No mass. Kidneys and ureters: Mild perinephric stranding. Stomach and bowel: Mass effect on the duodenal sweep. Appendix: No evidence of appendicitis. Intraperitoneal space: Unremarkable. No free air. No significant fluid collection. Retroperitoneal space: Numerous clips in the retroperitoneum. Vasculature: IVC filter. Lymph nodes: Unremarkable. No enlarged lymph nodes. Bladder: Unremarkable as visualized. Reproductive: Unremarkable as visualized. Bones/joints: Unremarkable. No acute fracture. Soft tissues: Left inguinal fat protruding hernia. Midline abdominal wall protruding hernia. IMPRESSION: 1. Markedly enlarged, and inflamed gallbladder with adjacent stranding, fluid, and irregular wall thickening. evidence of ruptured acute cholecystitis, with adjacent liver involvement. 2. Small focal area of consolidation in the left lower lobe, recommend followup. Electronically signed by: John Chao On 12/04/2018 19:57:12 PM
[2018-12-04] MEDS ORDERED: AMOX875T2 PO (20:45)
[2018-12-04] MEDS ORDERED: ONDA4TAB5 PO (20:45)
[2018-12-04] MEDS ORDERED: OXYC1TAB23 PO (20:45)
[2018-12-04] MEDS ORDERED: GLUCAGON FOR INJ 1 MG VIAL (J1610) SC PRN (20:45)
[2018-12-04] MEDS ORDERED: GLUCOSE 4 GM CHEW TABLET PO PRN (20:45)
[2018-12-04] MEDS ORDERED: DEXTROSE 50% 50 ML SYRINGE IV PRN (20:45)
[2018-12-04] MEDS ORDERED: PT COMMENT (20:49)
[2018-12-04] MEDS: CARVedilol 12.5 MG TAB PO SCH (21:00)
[2018-12-04] MEDS ORDERED: HumaLOG INSULIN (NovoLOG) PER UNIT SC SCH (21:00)
[2018-12-04 21:46] LABS: HEMOGLOBIN A1c 6.6 %
--- NOTE | 2018-12-04 22:15 | HPEPDOC ---
[facility] Medical History & Physical Date of Admission Dec 04, 2018 Date of Service: Dec 04, 2018 Other Provider Pt receives care at [facility] Attending Physician: LOBITO HOLM MD History and Physical CHIEF COMPLAINT: Abdominal pain HISTORY OF PRESENT ILLNESS: Saurabh is a 63-year-old male with pertinent past medical history of COPD, atrial fibrillation on eliquis, testicular ca, diabetes mellitus, systolic CHF with low EF, restrictive cardiomyopathy, ricarda with cpap non-compliance, previous PE and IVC, and hypertension who presented to the emergency department this afternoon with significant abdominal pain and constipation. He describes the pain as diffuse across his entire stomach, specifically feeling as though his "guts are ripping out of [him]." He states it is hard to talk and that he has constant gagging and "gas bubbles." He has not had a bowel movement in a week, a nd has been on a mostly clear liquid diet of late. His abdominal pain was severe this morning, diminished a little bit in the afternoon and early evening, and is now severe again at time of exam. He states lying horizontal in the position and remaining quiet moderately help his symptoms. When he talks or moves around, his pain and discomfort is exacerbated. He reports that when his abdominal pain is most acute, it radiates superiorly in the form of epigastric pressure. Patient has been seen here at [facility] two previous times in the past month. Patient states that one month ago, he presented with similar abdominal pain and hematemesis, and was subsequently informed his small intestines were being strangulated by scar tissue. A conservative approach was taken, and the patient was discharged to monitor his pain for resolution. He then presented a week and a half later when his abdominal pain did not resolve and was subsequently put on antibiotics. He reports his abdominal pain over this past month truly has never dissipated, despite conservative management and antibiotics. When his symptoms became more severe this morning, he felt it was necessary to be seen emergently again. Pt states he still has his gallbladder and appendix. Initial labs in the ED showed leukocytosis with increased amount of neutrophils, elevated alkaline phosphatase, elevated BNP, and moderately elevated direct bilirubin. Abdomen/pelvis CT with contrast showed acute cholecystitis with perforation with surrounding fluid/abscess and liver involvement. There was also a small focal consolidation in the left lower lung. Patient will be admitted, general surgery has been consulted, and preparations will be made for upcoming surgery. Patient verbally states that his code status is full code. PAST MEDICAL HISTORY: COPD Testicular cancer (1977), status post right orchiectomy with surgical removal of lymph nodes Chronic hypertension Systolic congestive heart failure with h/o low EF Obstructive sleep apnea, noncompliant with CPAP Restrictive cardiomyopathy. Benign prostatic hypertrophy with history of prostatitis. 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 REVIEW OF SYSTEMS: CONSTITUTIONAL: Endorses intermittent chills, nausea, vomiting a week ago; denies fever, denies unintentional weight change HEENT: Endorses dysphagia; Denies odynophagia, headache, lightheadedness, dizziness, difficulty with mentation, eye pain, ear pain, diplopia, blurry vision, tinnitus CARDIOVASCULAR: Endorses substernal and epigastric pressure when abdominal pain and pressure is acutely severe; Denies chest pain, palpitations RESPIRATORY: Endorses shortness of breath with talking, movement, gagging; denies pleuritic chest pain GASTROINTESTINAL: Endorses diffuse abdominal pain and pressure, nausea, vomiting last week, and constipation; denies hematochezia, melena GENITOURINARY: Denies dysuria or hematuria MUSCULOSKELETAL: Denies any specific muscle or joint pain NEUROLOGICAL: Denies numbness or paresthesias ENDOCRINE: Endorses intermittent cold intolerance HOME MEDICATIONS: Please see below. PHYSICAL EXAMINATION: VITAL SIGNS: Please see below GENERAL APPEARANCE: Patient is lying on his left side horizontally 180 in emergency room hospital bed at time of exam. He is on monitoring as well as 2 L supplemental oxygen via nasal cannula. Patient is having trouble speaking in longer sentences. Patient appears to be in significant discomfort with accompanying intermittent agitation. He responds appropriately to questions and commands. HEENT: Normocephalic, atraumatic. Anicteric sclera. Extraocular motion is intact.. Pupils are equal, round, reactive to light and accommodation. Neck is wide and obese.. Trachea midline. Mild erythema of the uvula. No pharyngeal exudate. No upper teeth visualized at all. Approximate amount body score 3-4. CARDIOVASCULAR: Distant heart sounds, likely secondary to patient's body habitus with faint S1, S2. Tachycardic. No murmurs, rubs, gallops appreciated. LUNGS: End expiratory wheeze mid right lung posteriorly. Some mild crackles appreciated of left lung posteriorly with expiration. Poor respiratory effort and diminished tidal volume. Symmetric chest expansion. No visible accessory muscle use or tractions on respiration. Patient is unable to speak in full sentences without having to stop. He is on 2 L nasal cannula supplemental oxygen during exam. ABDOMEN: Obese with moderate distention. Foot long midline vertical scar. It moves inferiorly of umbilicus. There are areas of small bruising at the level of the umbilicus right lower quadrant. There is significant tenderness to palpation of right upper quadrant and midline abdominal quadrant. There appears to be signs of diastases recti when patient engages abdominal muscles. There is no tympany to percussion. There is some hollowness to percussion over the ve ntral midline of the abdomen. Hyperactive bowel sounds appreciated on auscultation. There is rebound tenderness with palpation of right upper quadrant. MUSCULOSKELETAL: 5 out of 5 muscle strength testing upper extremity range of motion is bilaterally EXTREMITIES: 2+ palpable pulses radial and posterior tibial bilaterally; mild bilateral lower extremity edema NEUROLOGICAL: Moderate visualized resting tremor of right arm. Patient is awake, alert and oriented 3. He responds appropriately to questions and commands. PSYCHIATRIC: Patient appears in significant discomfort with accompanying frustration. Appropriate affect. LABORATORY DATA: See below. IMAGIN/7, CT abdomen and pelvis with contrast: Markedly enlarged, and inflamed gallbladder with adjacent stranding, fluid, and irregular wall thickening. evidence of ruptured acute cholecystitis, with adjacent liver involvement. Small focal area of consolidation in the left lower lobe, recommend followup. MICROBIOLOGY: Please see below. ASSESSMENT & PLAN: This is a 63-year-old obese male with pertinent past medical history of systolic congestive heart failure, restrictive cardiomyopathy, chronic h ypertension, COPD, atrial fibrillation on Eliquis, obstructive sleep apnea with noncompliance on CPAP, history of testicular cancer, and history of abdominal repair, who presented for the third time in the past month with diffuse abdominal pain and pressure. CT abdomen imaging in ED showed ruptured acute cholecystitis with liver involvement and left lower lobe focal consolidation. #Acute ruptured cholecystitis with pericholecystic fluid/abscess and liver involvement -Patient has significant tenderness to palpation of right upper quadrant with rebound tenderness of right upper quadrant. -12/[address] with contrast showed acute cholecystitis with perforation and liver involvement. Alkaline phosphatase elevated on initial labs. -Continue with antibiotic started in ED (ertapenem; antibiotic coverage below the diaphragm) -General surgery has been consulted and is following the patient's case -Patient has been made npo in anticipation of upcoming surgery -IV fluids ordered -Pro calcitonin ordered -Initial lactic acid was 2.5. Repeat measurements to come -Patient's home Eliquis held in anticipation of surgery -IV morphine q4h prn and scheduled iv acetaminophen q8h ordered for pain -zofran ordered and protonix ordered for stress ulcer prophylaxis #Sepsis -Patient was tachycardic at time of exam (between 103-108 on telemetry) with leukocytosis (17.3), and respiratory rate of 20 -Patient has 2+ SIRS criteria with 2 known sources of infection (perforated acute cholecystitis and left lower lobe consolidation/HCAP) -Patient is receiving antibiotics in the form of ertapenem -Patient currently receiving IV fluids -2 blood cultures were ordered and are pending; as well as a pending sputum culture -Initial lactic acid of 2.5 with repeat measurements to come -Pro calcitonin ordered -c/w telemetry #Healthcare-associated pneumonia (HCAP) -Patient had left lower lobe small focal consolidation on 12/04 CT imaging -Patient has been in the hospital 3 times in the past month counting this visit. -Patient is receiving antibiotics in the form of ertapenem, which offers pna c overage #Acute exacerbation of COPD, likely secondary to HCAP -Patient is having difficulty speaking in full sentences while on 2 L nasal cannula supplemental oxygen; patient does not use home supplemental oxygen -Physical exam revealed wheezes and crackles on auscultation -Patient given 125 mg IV methylprednisolone administration; 80 mg IV methylprednisolone scheduled for every 8 hours -Order made to titrate patient's oxygen saturation levels to 88-92% -Duonebs scheduled q6h -pt's home spiriva continued -vbg ordered #Diabetes mellitus -Initial A1c measurement at time of admission was 6.6 -Patient's home hypoglycemic medications were held -Patient placed on insulin sliding scale -FSBS before meals and at night -home atorvastatin continued #Chronic hypertension -Patient is normotensive upon presentation -continue with home antihypertensive medications (torsemide, spironolactone -Continue to follow patient's vitals #History of chronic alcohol abuse -Patient was awake, alert and oriented 3 on exam. He maintained good eye contact and responded appropriately to questions and commands. -FA, multivitamin, and thiamine all ordered -CIWA protocol ordered with 2mg po ativan when score is 8 or greater -pt on fall risk and seizure precautions #History of systolic CHF with previous low EF -initial BNP was elevated -c/w pt's home spironolactone, carvedilol -strict monitoring of I&O with daily weights #Obstructive sleep apnea, noncompliant with home CPAP -Patient has mallampati score of 3 or 4 visualized on exam -Cpap noncompliant at home. Per pt, his sister is the only one who can bring his cpap in to hospital, but she is currently sick. -Continuous pulse ox ordered #Elevated BUN and Creatinine -Patient reports he's been on a clear liquid diet recently secondary to chronic abdominal pain and pressure and previous hospitalizations within the past month. -Patient's initial creatinine 1.33. Baseline appears to be 0.8-1 -This appears to be secondary to patient's dehydration -Patient receiving IV fluids -Continue to monitor on repeat labs #Atrial fibrillation, on Eliquis -Patient's Eliquis held in anticipation of upcoming surgery #Gout -Continue with patient's home allopurinol #History of PE with IVC -Pt's anticoagulation (eliquis) held in anticipation of upcoming surgery #Obesity -BMI of 40 #DVT prophylaxis: Patient's home Eliquis medication was held. Teds and s equentials were ordered. #Stress ulcer prophylaxis: 40 mg Protonix ordered Disposition: Pt is admitted under care of hospitalist time for overnight monitoring and likely surgery on 12/05. Vital Signs Vital Signs Date Time Temp Pulse Resp B/P (MAP) Pulse Ox O2 Delivery O2 Flow Rate FiO2 12/04/18 22:05 98 20 105/88 (94) 96 Nasal Cannula 2.0 12/04/18 16:54 97.9 Laboratory Data Labs 24H Laboratory Tests 2 12/04/18 16:28: Immature Granulocyte % (Auto) 3.8H, White Blood Count 17.3H, Red Blood Count 5.64, Hemoglobin 16.5, Hematocrit 51.0, Mean Corpuscular Volume 90.4, Mean Corpuscular Hemoglobin 29.3, Mean Corpuscular Hemoglobin Concent 32.4, Red Cell Distribution Width 14.2, Platelet Count 278, Neutrophils (%) (Auto) 83.0H, Lymphocytes (%) (Auto) 7.6L, Monocytes (%) (Auto) 4.8, Eosinophils (%) (Auto) 0.1, Basophils (%) (Auto) 0.7, Neutrophils # (Auto) 14.4H, Lymphocytes # (Auto) 1.3L, Monocytes # (Auto) 0.8, Eosinophils # (Auto) 0.0, Basophils # (Auto) 0.1, Nucleated Red Blood Cells % (auto) 0.0, Anion Gap 9, Glomerular Filtration Rate 57.8, Estimated Mean Plasma Glucose 143H, Hemoglobin A1c 6.6, Calcium Level 8.9, Aspartate Amino Transf (AST/SGOT) 30, Alanine Aminotransferase (ALT/SGPT) 38, Alkaline Phosphatase 152H, Total Bilirubin 0.9, Direct Bilirubin 0.3H, Total P rotein 6.2L, Albumin 2.2L, Albumin/Globulin Ratio 0.55L, Lipase 204 CBC/BMP Laboratory Tests 12/04/18 16:28 Red Blood Count 5.64, Mean Corpuscular Volume 90.4, Mean Corpuscular Hemoglobin 29.3, Mean Corpuscular Hemoglobin Concent 32.4, Red Cell Distribution Width 14.2, Neutrophils (%) (Auto) 83.0 H, Lymphocytes (%) (Auto) 7.6 L, Monocytes (%) (Auto) 4.8, Eosinophils (%) (Auto) 0.1, Basophils (%) (Auto) 0.7, Neutrophils # (Auto) 14.4 H, Lymphocytes # (Auto) 1.3 L, Monocytes # (Auto) 0.8, Eosinophils # (Auto) 0.0, Basophils # (Auto) 0.1 Microbiology Microbiology 12/04/18 Blood Culture, Received Pending 12/04/18 Blood Culture, Received Pending Home Medications Scheduled Acetazolamide (Acetazolamide) 250 Mg Tablet, 250 MG PO BID Allopurinol (Zyloprim) 300 Mg Tablet, 300 MG PO DAILY Amoxicillin/Potassium Clav (Amox-Clav 875-125 mg Tablet) 1 Each Tablet, 1 TAB PO BID Apixaban (Eliquis) 5 Mg Tab, 5 MG PO BID Atorvastatin Calcium (Atorvastatin Calcium) 80 Mg Tablet, 40 MG PO DAILY Budesonide/Formoterol (Symbicort 160-4.5 Mcg Inhaler) 60 Puff/Inhaler Aers, 2 PU FF INH BID Carvedilol (Carvedilol) 25 Mg Tablet, 25 MG PO BID Cholecalciferol (Vitamin D3) (Vitamin D3) 1,000 Unit Tablet, 2,000 UNIT PO DAILY Magnesium Oxide (Magnesium Oxide) 400 Mg Tablet, 400 MG PO BID Potassium Chloride (Potassium Chloride) 10 Meq Tab.er.prt, 30 MEQ PO DAILY Spironolactone (Spironolactone) 25 Mg Tablet, 25 MG PO BID Tiotropium Ponce (Spiriva) 18 Mcg Cap.w.dev, 1 CAP INH DAILY INSTRUCTED TO REPEAT INHALATION A SECOND TIME WITH SAME CAPSULE TO ENSURE FULL DOSE DELIVERY Torsemide (Torsemide) 20 Mg Tablet, 40 MG PO DAILY Scheduled PRN Albuterol Sulf (Albuterol Sulfate) 2.5 Mg/3 Ml Nebu, 2.5 MG INH Q6H PRN for SHORTNESS OF BREATH Albuterol Sulfate (Ventolin Hfa) 108 Mcg/Act Aer, 2 PUFF INH QID PRN for SHORTNESS OF BREATH Carboxymethylcellulose Sodium (Refresh Tears) 15 Ml Drops, 1 DROP OU QID PRN for DRY EYES Fluticasone Propionate (Fluticasone Propionate) 15.8 Ml Marshall.susp, 2 SPR NARES DAILY PRN for CONGESTION Ipratropium/Albuterol Sulfate (Iprat-Albut 0.5-3(2.5) mg/3 ml) 1 Micheline Micheline, 1 VIAL INH QID PRN for SHORTNESS OF BREATH Ondansetron HCl (Ondansetron HCl) 4 Mg Tablet, 4 MG PO Q6H PRN for NAUSEA OR VOMITING Oxycodone HCl/Acetaminophen (Oxycodone-Acetaminophen 5-325) 1 Each Tablet, 1 TAB PO Q4H PRN for PAIN Miscellaneous Medications [Pt Comment] PT STATES THAT THEY HAVE BEEN OFF THEIR MEDICATIONS FOR AT LEAST 7 DAYS BECAUSE OF PERSISTENT VOMITING WHEN TAKING HIS MEDICATIONS. HE STATES NOTHING HAS CHANGED IN HIS MEDICATIONS SINCE HIS DISCHARGE. Allergies Coded Allergies: No Known Drug Allergies (Verified Allergy, Unknown, 08/16/18) A-FIB/CHADSVASC A-FIB History Current/History of A-Fib/PAF?: Yes Current PO Anticoag Therapy: No (pt's home eliquis being held in preparation of likely 12/05 surgery) Age/Risk Factor Scoring CHADSVASC: CHADSVASC Response (Comments) Value Age Risk Factor Age < 65 years old 0 Gender Risk Factor Male 0 Hx of CHF Yes 1 Hx of HTN Yes 1 Hx of Stroke/TIA/or VTE No 0 Hx of Diabetes Yes 1 Hx of Vascular Disease No 0 Total 3 Treatment Treatment ordered: Holding Other Reason Anticoagulant not given: Recent/upcomin procedure GME ATTESTATION GME ATTESTATION My faculty preceptor for this patient encounter was physically present during the encounter and was fully available. All aspects of the patient interview, examination, medical decision making process, and medical care plan development were reviewed and approved by the faculty preceptor. The faculty preceptor is aware and concurs with the plan as stated in the body of this note and will attest to such by his/her cosignature. ATTENDING NOTE I personally examined at approximately 11PM, discussed the case with , and agree with his plan as documented with the addition of the following: This is a 63 yr old M who is admitted for management of Sepsis, Acute Cholecystitis w ruptured gallbladder and Acute COPD 2/2 HCAP. #Perioperative Evaluation He reports being able to walk at least 1 flight of stairs without having to stop and rest. His Revised Cardiac Index Risk Score (RCIR) was 2. Therefore we ordered pro-BNP which was >300. Troponins and an EKG have also been ordered. He is already on telemetry. We will treat his Sepsis, COPD and pneumonia aggressively tonight and keep him NPO in anticipation of surgery. He last took apixaban about a week ago; this medication only needs to be held 1- 2 days prior surgery. Rest per Dr.Schwarz Pride&P. DANIAL JANSEN PGY-1 Dec 04, 2018 22:15 LOBITO HOLM MD Dec 05, 2018 04:21
[2018-12-04 22:35] VITALS: BP 120/77
[2018-12-04] MEDS: NS 1,000 ML IV SCH (23:02)
[2018-12-04 23:07] VITALS: BP 110/71
[2018-12-04 23:09] VITALS: BP 107/70
[2018-12-04] MEDS ORDERED: MORPHINE 4 MG/ML 1ML VIAL/SYRINGE (J2270) IV PRN (23:15)
[2018-12-04] MEDS ORDERED: methylPREDNISolone INJ 125 MG/2 ML VIAL (J2930) IV STA (23:37)
[2018-12-04] MEDS ORDERED: ALBUTEROL SULFATE 2.5 MG/0.5 ML INH NEB SOLN NEB PRN (23:45)
[2018-12-04 23:59] VITALS: BP 120/78
[2018-12-05] VITALS (17 sets, daily range): BP systolic 100–179; BP diastolic 58–90; O2SAT 92–98
[2018-12-05 00:01] LABS: VENOUS BASE EXCESS 2.4 (-2.0-2.0); VENOUS HCO3 28.7 MEQ/L (23.0-27.0); VENOUS O2 SATURATION 49.9 % (60.0-80.0); VENOUS PARTIAL PRESSURE CO2 50.6 mmHg (38.0-50.0); VENOUS PARTIAL PRESSURE O2 30.2 mmHg (30.0-50.0); VENOUS PH 7.372 UNITS (7.330-7.430); VENOUS STANDARD HCO3 25.2 MEQ/L; VENOUS TOTAL CO2 30.3 MEQ/L (24.0-28.0)
[2018-12-05] MEDS: ACETAMINOPHEN *IV* 1,000 MG in IV 1 EA IV SCH ×2 (00:43→08:13)
[2018-12-05] MEDS ORDERED: LORazepam 2 MG TAB PO PRN (00:45)
[2018-12-05 00:51] LABS: INFLUENZA A AMPLIFICATION NEGATIVE (NEGATIVE); INFLUENZA B AMPLIFICATION NEGATIVE (NEGATIVE)
[2018-12-05] MEDS: ERTAPENEM SODIUM 1 GM in NS MINI-BAG PLUS 50 ML IV SCH ×2 (01:19→21:21)
[2018-12-05] MEDS ORDERED: ONDANSETRON 4 MG TAB (S0181) PO PRN (01:45)
[2018-12-05] MEDS: IPRATROPIUM 0.5MG/ALBUTEROL 2.5MG INH SOL UD 3ML (DUONEB)(J7620) NEB SCH ×4 (02:00→20:00)
[2018-12-05] MEDS: AcetaZOLAMIDE 250 MG TAB PO SCH ×2 (02:11→08:11)
[2018-12-05] MEDS: MAGNESIUM OXIDE 400 MG TAB (MAG-OX) PO SCH ×2 (02:12→08:11)
[2018-12-05] MEDS: HumaLOG INSULIN (NovoLOG) PER UNIT SC SCH ×4 (05:11→21:00)
[2018-12-05 07:05] LABS: HEMATOCRIT 45.7 % (42.0-52.0); HEMOGLOBIN 14.7 g/dl (13.5-17.5); MEAN CORPUSCULAR HEMOGLOBIN 29.1 pg (27.0-33.0); MEAN CORPUSCULAR HGB CONC 32.2 g/dl (32.0-36.5); MEAN CORPUSCULAR VOLUME 90.5 fl (80.0-96.0); PLATELET COUNT, AUTOMATED 241 10^3/uL (150-450); RED BLOOD COUNT 5.05 10^6/uL (4.30-6.10); WHITE BLOOD COUNT 10.6 10^3/uL (4.0-10.0)
[2018-12-05] MEDS ORDERED: HumaLOG INSULIN (NovoLOG) PER UNIT SC SCH ×2 (07:30→21:00)
[2018-12-05 07:34] LABS: BLOOD UREA NITROGEN 37 MG/DL (7-18); CALCIUM LEVEL 8.6 MG/DL (8.8-10.2); CARBON DIOXIDE LEVEL 28 MEQ/L (21-32); CHLORIDE LEVEL 100 MEQ/L (98-107); CREATININE FOR GFR 1.26 MG/DL (0.70-1.30); GLOMERULAR FILTRATION RATE > 60.0 (>49); GLUCOSE, FASTING 153 MG/DL (70-100); POTASSIUM SERUM 4.2 MEQ/L (3.5-5.1); SODIUM LEVEL 137 MEQ/L (136-145); TROPONIN I < 0.02 NG/ML (< 0.10)
[2018-12-05] MEDS: TIOTROPIUM INHALER/CAPSULE (SPIRIVA) INH SCH (07:49)
[2018-12-05] MEDS ORDERED: methylPREDNISolone INJ 125 MG/2 ML VIAL (J2930) IV SCH (08:00)
[2018-12-05] MEDS: CARVedilol 12.5 MG TAB PO SCH ×2 (08:10→21:21)
[2018-12-05] MEDS: ATORVASTATIN 20 MG TAB PO SCH (08:11)
[2018-12-05] MEDS: ALLOPURINOL 300 MG TAB PO SCH ×2 (08:11→08:55)
[2018-12-05] MEDS: FOLIC ACID 1 MG TAB PO SCH (08:11)
[2018-12-05] MEDS: THIAMINE HCL 200 MG/2 ML VIAL (J3411) IM SCH (08:12)
[2018-12-05] MEDS: PANTOPRAZOLE 40MG INJ (PROTONIX) (C9113) IV SCH (08:12)
[2018-12-05] MEDS ORDERED: ONDANSETRON 4MG/2ML VIAL (J2405) IV PRN (08:15)
[2018-12-05] MEDS ORDERED: POTASSIUM CHLORIDE 10 MEQ SR TABLET PO SCH (09:00)
[2018-12-05] MEDS ORDERED: VITAMIN D 1,000 INTERNATIONAL UNITS TABLET PO SCH (09:00)
--- NOTE | 2018-12-05 10:14 | CR.PDOC ---
General Surgery Consultation Date of Consultation 12/05/18 History and Physical CONSULT REPORT FOR: hospitalist service REASON FOR CONSULTATION: abdominal pain, acute cholecystitis HISTORY OF PRESENT ILLNESS: Patient is a 63-year-old male, morbidly obese who presented to the emergency room late yesterday afternoon and subsequently admitted to the hospitalist service for acute cholecystitis, exacerbation of his COPD. He was seen in the emergency room on 11/28/2018 for sudden onset of epigastric abdominal discomfort was found to have acute cholecystitis and discharged home on Percocet, Zofran and Augmentin. He reports his pain improved the first few days was able to tolerate food without nausea or vomiting. He denies any fevers or chills at that time. When the weekend came in the pain recurred and got exacerbated. Reports chills, cold sweats, nausea and multiple episodes of vomiting and not tolerating any oral intake even taking his medications. He is on Eliquis for history of DVT and he took this last roughly 5 days ago. He reports that this was worst Tuesday and Tuesday. He was supposed to see me in the clinic to consider cholecystectomy but this [facility]. Yesterday he was seen in the emergency room was found to have worsening of the inflammatory process around the gallbladder with worsening leukocytosis to 17,000 but normal LFTs he was subsequently admitted in the hospital and started on IV fluid hydration and antibiotics. He reports he is feeling better this morning with minimal discomfort only on palpation of the right upper quadrant area. Denies any nausea or vomiting. He has been afebrile overnight. I have met him previously on his last admission. He has significant history of an extensive lymphadenectomy done for testicular cancer with subsequent hernia formation so was repaired laparoscopically in 2017 with 2 pieces of mesh placed at the epigastric area and around the umbilicus. He tells me a story that he had a abandoned gastric bypass or bariatric surgery because the surgeon could not enter the abdomen safely. He subsequently was admitted for a couple weeks in the hospital for exacerbation of his COPD and symptoms consistent with bowel obstruction that resolved by itself without any need for surgical intervention. PAST MEDICAL HISTORY: 1. Morbid obesity. Current BMI document is 36.5. During the last admission he is a BMI calculated is 40.1. 2. COPD 3. Diabetes 4. History of testicular cancer status post right orchiectomy, periaortic lymph node dissection PAST SURGICAL HISTORY: INCLUDES: 1. Periaortic lymph node dissection and large midline incision 2. Left inguinal hernia repair with polypropylene mesh in 2007 3. Laparoscopy, laparoscopic incisional hernia repair with 2 pieces of mesh in 2017 4. Attempted laparoscopy, bariatric surgery this year by Dr. Pablo and ALLERGIES: Please see below. FAMILY HISTORY: . HOME MEDICATIONS: Please see below. REVIEW OF SYSTEMS: GENERAL: Patient reports episodes of chills and no fever. Reports losing weight because has not been eating well for past couple weeks. HEENT: Denies blurred vision and double vision. Denies ear symptoms. Denies hoarseness. NECK: Denies any neck pain CARDIOVASCULAR: Denies chest pain and palpitations. MUSCULOSKELETAL: Denies arthralgias, back pain and thrombophlebitis. SKIN: Denies rash. NEUROLOGIC: Denies headache, stroke and transient ischemic attack. PSYCHIATRIC: Denies anxiety and depression.. HEMATOLOGY/ONCOLOGY: Patient on Eliquis for history of DVT has not taken this for roughly 5 days now. HEART: Denies any chest pains, palpitations, paroxysmal dyspnea, orthopnea. PULMONARY: Noted to be short of breath in the emergency room. GASTROINTESTINAL: See HPI. GENITOURINARY: Denies dysuria, frequency, hematuria and nocturia. ENDOCRINE: Denies polydipsia, polyphagia, polyuria, heat or cold intolerance. INFECTIOUS: Has been placed on Augmentin since November 28. NUTRITION: Reports anorexia. PHYSICAL EXAMINATION: VITALS SIGNS: Please see below. GENERAL APPEARANCE: Mildly uncomfortable, sitting up on bed. SKIN: Warm and dry no jaundice. HEENT: Anicteric sclerae, lips are dry. He is wearing a nasal cannula. NECK: Short, supple no obvious jugular venous distention. LUNGS: Relatively clear to auscultation but decreased inspiration effort. HEART: No chest wall abnormalities. Regular rate and rhythm with no murmurs appreciated. ABDOMEN: Abdomen is round, soft, relatively nondistended. He has a protuberant abdomen most prominent in the upper abdomen with diastases. Moderately tender over the right upper quadrant area with mild guarding. EXTREMITIES: Extremities have no deformities. No edema identified ANCILLARIES: . LABORATORY DATA: Please see below. IMAGING STUDIES: CT abdomen and pelvis 1. Markedly enlarged, and inflamed gallbladder with adjacent stranding, fluid, and irregular wall thickening. evidence of ruptured acute cholecystitis, with adjacent liver involvement. 2. Small focal area of consolidation in the left lower lobe, recommend followup. IMPRESSION AND PLAN: Severe, acute cholecystitis Morbid obesity Patient have at least an 8-9 day course of the inflamed gallbladder as it was documented in November 28 at the is having some inflamed gallbladder at that time. There is some suggestion of possibility of contained rupture of the gallbladder with the most recent imaging. He certainly is symptomatic from this. He has leukocytosis. His LFTs appear well within normal. He is morbidly obese with an extensive abdominal surgery and with some suggestions that the last surgeon who try to enter his abdomen was not able to get in the abdomen safely and had to abandon a preplanned bariatric surgery. This to me poses a very high risk of injuring the bile duct if he tried to perform cholecystectomy B at laparoscopic or open at this stage in his disease course. Thus we plan to have radiology place a percutaneous cholecystostomy at this time as a bridge to get the information to come down, treat the cholecysti tis and once clinically improved, clean about 4-8 weeks bring him back for an interval cholecystectomy. I have discussed this with the patient in the rational port so when he understands this. I will follow the patient's course with the primary service closely. Vital Signs Vital Signs Date Time Temp Pulse Resp B/P (MAP) Pulse Ox O2 Delivery O2 Flow Rate FiO2 12/05/18 08:10 94 108/59 12/05/18 08:00 97.4 18 96 2.0 12/05/18 06:00 Nasal Cannula I&Os I&O- Last 24 Hours up to 6 AM 12/05/18 06:00 Intake Total 1981 ml Output Total 350 ml Balance 1631 ml Laboratory Data Labs 24H Laboratory Tests 2 12/04/18 16:28: Immature Granulocyte % (Auto) 3.8H, White Blood Count 17.3H, Red Blood Count 5.64, Hemoglobin 16.5, Hematocrit 51.0, Mean Corpuscular Volume 90.4, Mean Corpuscular Hemoglobin 29.3, Mean Corpuscular Hemoglobin Concent 32.4, Red Cell Distribution Width 14.2, Platelet Count 278, Neutrophils (%) (Auto) 83.0H, Lymphocytes (%) (Auto) 7.6L, Monocytes (%) (Auto) 4.8, Eosinophils (%) (Auto) 0.1, Basophils (%) (Auto) 0.7, Neutrophils # (Auto) 14.4H, Lymphocytes # (Auto) 1.3L, Monocytes # (Auto) 0.8, Eosinophils # (Auto) 0.0, Basophils # (Auto) 0.1, Nucleated Red Blood Cells % (auto) 0.0, Anion Gap 9, Glomerular Filtration Rate 57.8, Estimated Mean Plasma Glucose 143H, Hemoglobin A1c 6.6, Calcium Level 8.9, Aspartate Amino Transf (AST/SGOT) 30, Alanine Aminotransferase (ALT/SGPT) 38, Alkaline Phosphatase 152H, Total Bilirubin 0.9, Direct Bilirubin 0.3H, XZ-[id number]-Type Natriuretic Peptide 914H, Total Protein 6.2L, Albumin 2.2L, Albumin/Globulin Ratio 0.55L, Lipase 204 12/04/18 23:13: Lactic Acid Level 2.5*H 12/04/18 23:17: Bedside Glucose (Misc Panel) 108 12/04/18 23:50: Blood Gas Bicarbonate Standard 25.2, Venous Blood pH 7.372, Venous Blood Partial Pressure CO2 50.6H, Venous Blood Partial Pressure O2 30.2, Venous Blood Total Carbon Dioxide 30.3H, Venous Blood HCO3 28.7H, Venous Blood Oxygen Saturation 49.9L, Venous Blood Base Excess 2.4H, Troponin I < 0.02 12/05/18 00:10: Influenza Type A (RT-PCR) NEGATIVE, Influenza Type B (RT-PCR) NEGATIVE 12/05/18 00:28: 12/05/18 03:16: Lactic Acid Followup at 4 Hours 3.9*H 12/05/18 05:08: Bedside Glucose (Misc Panel) 154H 12/05/18 06:48: Nucleated Red Blood Cells % (auto) 0.0, Anion Gap 9, Glomerular Filtration Rate > 60.0, Lactic Acid Level 1.1, Blood Urea Nitrogen 37H, Creatinine 1.26, Sodium Level 137, Potassium Level 4.2, Chloride Level 100, Carbon Dioxide Level 28, Calcium Level 8.6L, Troponin I < 0.02 CBC/BMP Laboratory Tests 12/04/18 16:28 Red Blood Count 5.64, Mean Corpuscular Volume 90.4, Mean Corpuscular Hemoglobin 29.3, Mean Corpuscular Hemoglobin Concent 32.4, Red Cell Distribution Width 14.2, Neutrophils (%) (Auto) 83.0 H, Lymphocytes (%) (Auto) 7.6 L, Monocytes (%) (Auto) 4.8, Eosinophils (%) (Auto) 0.1, Basophils (%) (Auto) 0.7, Neutrophils # (Auto) 14.4 H, Lymphocytes # (Auto) 1.3 L, Monocytes # (Auto) 0.8, Eosinophils # (Auto) 0.0, Basophils # (Auto) 0.1 12/05/18 06:48 Red Blood Count 5.05, Mean Corpuscular Volume 90.5, Mean Corpuscular Hemoglobin 29.1, Mean Corpuscular Hemoglobin Concent 32.2, Red Cell Distribution Width 14.4, Calcium Level 8.6 L Microbiology Microbiology 12/05/18 Gram Stain - Final, Complete 12/05/18 Sputum Culture - Final, Complete 12/04/18 Blood Culture, Received Pending 12/04/18 Blood Culture, Received Pending Home Medications Scheduled Acetazolamide (Acetazolamide) 250 Mg Tablet, 250 MG PO BID, (Reported) Allopurinol (Zyloprim) 300 Mg Tablet, 300 MG PO DAILY, (Reported) Amoxicillin/Potassium Clav (Amox-Clav 875-125 mg Tablet) 1 Each Tablet, 1 TAB PO BID, (Reported) Apixaban (Eliquis) 5 Mg Tab, 5 MG PO BID, (Reported) Atorvastatin Calcium (Atorvastatin Calcium) 80 Mg Tablet, 40 MG PO DAILY, (Reported) Budesonide/Formoterol (Symbicort 160-4.5 Mcg Inhaler) 60 Puff/Inhaler Aers, 2 PUFF INH BID, (Reported) Carvedilol (Carvedilol) 25 Mg Tablet, 25 MG PO BID, (Reported) Cholecalciferol (Vitamin D3) (Vitamin D3) 1,000 Unit Tablet, 2,000 UNIT PO DAILY, (Reported) Magnesium Oxide (Magnesium Oxide) 400 Mg Tablet, 400 MG PO BID, (Reported) Potassium Chloride (Potassium Chloride) 10 Meq Tab.er.prt, 30 MEQ PO DAILY, (Reported) Spironolactone (Spironolactone) 25 Mg Tablet, 25 MG PO BID, (Reported) Tiotropium [place] (Spiriva) 18 Mcg Cap.w.dev, 1 CAP INH DAILY, (Reported) INSTRUCTED TO REPEAT INHALATION A SECOND TIME WITH SAME CAPSULE TO ENSURE FULL DOSE DELIVERY Torsemide (Torsemide) 20 Mg Tablet, 40 MG PO DAILY, (Reported) Scheduled PRN Albuterol Sulf (Albuterol Sulfate) 2.5 Mg/3 Ml Nebu, 2.5 MG INH Q6H PRN for SHORTNESS OF BREATH, (Reported) Albuterol Sulfate (Ventolin Hfa) 108 Mcg/Act Aer, 2 PUFF INH QID PRN for SHORTNESS OF BREATH, (Reported) Carboxymethylcellulose Sodium (Refresh Tears) 15 Ml Drops, 1 DROP OU QID PRN for DRY EYES, (Reported) Fluticasone Propionate (Fluticasone Propionate) 15.8 Ml [place].susp, 2 SPR NARES DAILY PRN for CONGESTION, (Reported) Ipratropium/Albuterol Sulfate (Iprat-Albut 0.5-3(2.5) mg/3 ml) 1 Micheline Micehline, 1 VIAL INH QID PRN for SHORTNESS OF BREATH, (Reported) Ondansetron HCl (Ondansetron HCl) 4 Mg Tablet, 4 MG PO Q6H PRN for NAUSEA OR VOMITING, (Reported) Oxycodone HCl/Acetaminophen (Oxycodone-Acetaminophen 5-325) 1 Each Tablet, 1 TAB PO Q4H PRN for PAIN, (Reported) Miscellaneous Medications [Pt Comment] , (Reported) PT STATES THAT THEY HAVE BEEN OFF THEIR MEDICATIONS FOR AT LEAST 7 DAYS BECAUSE OF PERSISTENT VOMITING WHEN TAKING HIS MEDICATIONS. HE STATES NOTHING HAS CHANGED IN HIS MEDICATIONS SINCE HIS DISCHARGE. Allergies Coded Allergies: No Known Drug Allergies (Verified Allergy, Unknown, 08/16/18) DARSHAN RIBEIRO MD Dec 05, 2018 10:13
[2018-12-05] MEDS: NS 1,000 ML IV SCH (11:36)
[2018-12-05] MEDS ORDERED: LIDOCAINE 1% MDV 20ML VIAL As Ordered ONE ×2 (14:45→15:11)
[2018-12-05] MEDS ORDERED: fentaNYL 100 MCG/2 ML INJECTION (J3010) As Ordered ONE (14:45)
[2018-12-05] MEDS ORDERED: diphenhydrAMINE INJ 50MG/ML VIAL (J1200) As Ordered ONE (14:45)
[2018-12-05] MEDS ORDERED: MIDAZOLAM INJ 2 MG/2 ML VIAL (J2250) As Ordered ONE (14:45)
[2018-12-05] MEDS ORDERED: methylPREDNISolone INJ 40 MG/1 ML VIAL (J2920) IV SCH (16:00)
--- NOTE | 2018-12-05 17:29 | REP ---
IR cholecystostomy placement using CT guidance. IR moderate sedation. Clinical information: Right upper quadrant pain, tenderness, nausea vomiting. Distended possibly perforated gallbladder on CT. Presently not a surgical candidate, therefore referred by surgery. Physician: Dr. Shirley. Procedure: The patient was advised of the benefits, risks and alternatives of the procedure and informed consent was obtained. The time-out was performed with verification of the patient's name, MRN, site of procedure and type of procedure to be performed. Moderate sedation was performed by the physician including the presence of an independent trained observer that assisted in monitoring the patient's level of consciousness and physiologic status. Following the administration of Versed and Fentanyl, the physician spent 45 minutes of continuous face to face time with the patient. The patient was placed in the supine position on the CT gantry and a scan was performed through the region of interest. This demonstrates a distended gallbladder. After marking the overlying skin, the patient was prepped and draped in the usual sterile fashion. The soft tissues overlying the gallbladder puncture site were anesthetized with lidocaine. Through this anesthetized region, an 18 gauge Chiba needle was advanced into the gallbladder under intermittent CT guidance. Brown fluid was aspirated. An Amplatz wire was advanced into the fluid collection over which a 10-[place] APDL was advanced. A fluid specimen was aspirated. Subsequent localized CT scanning was performed to confirm catheter location. The catheter was then locked, sutured in position and placed to gravity drainage. The specimen was labeled with the patient's name, medical record number and sent to the lab for further analysis. The patient tolerated the procedure well and was returned to PRU in stable condition. EBL: Less than 5 ml. Complications: None. Conclusion: 1. CT demonstrates distended possibly perforated gallbladder. 2. Successful CT guided cholecystostomy catheter placement. Catheter requires flushing with 10 ml sterile saline every day. Catheter may be removed at time of surgery otherwise patient to follow up in IR in 6 weeks for ongoing drain management. Thank you this referral. Electronically Signed by Alaina Shirley MD 12/05/2018 05:27 P
[2018-12-05] MEDS: SYMBICORT 160/4.5MCG INHALER 6GM INH SCH (20:26)
--- NOTE | 2018-12-05 22:04 | IPNPDOC ---
Subjective Date Seen The patient was seen on 12/05/18. Subjective Chief Complaint/HPI Complainf of right upper quadrant pain, will be going for IR guided cholecystostomy drain placement. SOB is better. No chest pain or cough. Objective Physical Examination General Exam: Positive: Alert, Cooperative, Mild Distress Eye Exam: Positive: PERRLA, Conjunctiva & lids normal, EOMI; Negative: Sclera icteric ENT Exam: Positive: Atraumatic, Mucous membr. moist/pink, Pharynx Normal Neck Exam: Positive: Supple; Negative: JVD, thyromegaly Chest Exam: Positive: Rhonchi, Wheezing, Diminished Heart Exam: Positive: Rate Normal, Regular Rhythm, Normal S1, Normal S2; Negative: Murmurs, Rubs Telemetry: Positive: No significant arrhythmia Abdomen Exam: Positive: BS Hypoactive, Tenderness Extremity Exam: Positive: Normal pulses; Negative: Clubbing, Cyanosis, Edema Assessment /Plan Assessment This is a 63-year-old obese male with pertinent past medical history of systolic congestive heart failure, restrictive cardiomyopathy, hypertension, COPD, atrial fibrillation on Eliquis, obstructive sleep apnea with noncompliance on CPAP, history of testicular cancer, and history of abdominal repair, who presented for the third time in the past month with diffuse abdominal pain and pressure. CT abdomen imaging in ED showed ruptured acute cholecystitis with liver involvement and left lower lobe focal consolidation. Acute ruptured cholecystitis with pericholecystic fluid/abscess and liver involvement 12/[address] with contrast showed acute cholecystitis with perforation and liver involvement. Continue with Ertapenem General surgery has been consulted and is following the patient's case Patient has been made npo in anticipation of upcoming surgery Held most of the oral medications. IV fluids, hold diuretics. Patient's home Eliquis held in anticipation of surgery IV morphine q4h prn and scheduled iv acetaminophen q8h ordered for pain zofran ordered and protonix ordered for stress ulcer prophylaxis Sepsis due to ruptured acute cholecystits and pneumonia. ertapenem 2 blood cultures were ordered and are pending; as well as a pending sputum c ulture lacticacidosis resolved. Healthcare-associated pneumonia (HCAP) Patient had left lower lobe small focal consolidation on 12/04 CT imaging Patient has been in the hospital 3 times in the past month counting this visit. Ertapenem Acute exacerbation of COPD, likely secondary to HCAP methyl pred , spiriva, duonebs titrate patient's oxygen saturation levels to 88-92% Chronic respiratory failure with hypoxia continue oxygen supplementation. Diabetes mellitus A1c 6.6 Patient's home hypoglycemic medications were held Patient placed on insulin sliding scale Hypertension with hypertensive heart disease continue coreg, diuretics held Chronic alcohol abuse CIWA protocol ordered with 2mg po ativan when score is 8 or greater pt on fall risk and seizure precautions continue thiamine. will resume folate when eating po. Systolic CHF with previous low EF infection with sepsis and is NPO. continue gentle hydration Hold diuretics. strict monitoring of I&O with daily weights Diuretics prn Obstructive sleep apnea, noncompliant with home CPAP Cpap noncompliant at home. Per pt, his sister is the only one who can bring his cpap in to hospital, but she is currently sick. Continuous pulse ox ordered [place] resolved due to poor oral intake due to abdominal pain and being on diuretics. on IVF. Atrial fibrillation, on Eliquis continue coreg Patient's Eliquis held in anticipation of procedure. will probably resume tomorrow. Gout Continue with patient's home allopurinol Morbid obesity BMI of 40 reports that a few months ago he was supposed to have a bariatric procedure but the bariatric surgeon had to abandon the case as he was not able to gain entry into the abdomen. He tried performing a laparoscopy and also made a small supraumbilical incision and was not able to enter the abdomen at all. Severe COPD continue symbicort and duonebs History of cardiomyopathy. Echocardiogram 02/2018 showed ejection fraction of 50%, mildly dilated left ventricle, mildly dilated left atrium, dilated aortic root, elevated right-sided pressures. 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 Eliquis on hold will possibly resume tomorrow. H/O Testicular cancer with orchiectomy and lymph node resection full exploratory laparotomy incision for periaortic lymph node dissection for prior history of testicular cancer in the 1970s. Incisional and ventral hernias developed hernias on the laparotomy site in 2017 had emergent laparoscopic repair of the hernias where he had some incarcerated omental tissue Also had inguinal hernia repair. History of nonsustained ventricular tachycardia (V-TACH). no issues at present. Fibronodular opacities in the lower lobes of the lungs bilaterally. The largest currently visible in the left lower lobe measuring 19 mm. DVT prophylaxis: Patient's home Eliquis medication was held. Teds and se quentials were ordered. Stress ulcer prophylaxis: 40 mg Protonix ordered Plan/VTE VTE Prophylaxis Ordered?: Yes VS, I&O, 24H, Fishbone Vital Signs/I&O Vital Signs Date Time Temp Pulse Resp B/P (MAP) Pulse Ox O2 Delivery O2 Flow Rate FiO2 12/05/18 08:10 94 108/59 12/05/18 06:00 92 Nasal Cannula 2.0 12/05/18 04:00 98.6 20 I&O- Last 24 Hours up to 6 AM 12/05/18 05:59 Intake Total 1841 ml Output Total 350 ml Balance 1491 ml Laboratory Data 24H LABS Laboratory Tests 2 12/04/18 16:28: Immature Granulocyte % (Auto) 3.8H, White Blood Count 17.3H, Red Blood Count 5.64, Hemoglobin 16.5, Hematocrit 51.0, Mean Corpuscular Volume 90.4, Mean Corpuscular Hemoglobin 29.3, Mean Corpuscular Hemoglobin Concent 32.4, Red Cell Distribution Width 14.2, Platelet Count 278, Neutrophils (%) (Auto) 83.0H, Lymphocytes (%) (Auto) 7.6L, Monocytes (%) (Auto) 4.8, Eosinophils (%) (Auto) 0.1, Basophils (%) (Auto) 0.7, Neutrophils # (Auto) 14.4H, Lymphocytes # (Auto) 1.3L, Monocytes # (Auto) 0.8, Eosinophils # (Auto) 0.0, Basophils # (Auto) 0.1, Nucleated Red Blood Cells % (auto) 0.0, Anion Gap 9, Glomerular Filtration Rate 57.8, Estimated Mean Plasma Glucose 143H, Hemoglobin A1c 6.6, Calcium Level 8.9, Aspartate Amino Transf (AST/SGOT) 30, Alanine Aminotransferase (ALT/SGPT) 38, Alkaline Phosphatase 152H, Total Bilirubin 0.9, Direct Bilirubin 0.3H, UU-Hty-L-Type Natriuretic Peptide 914H, Total Protein 6.2L, Albumin 2.2L, Albumin/Globulin Ratio 0.55L, Lipase 204 12/04/18 23:13: Lactic Acid Level 2.5*H 12/04/18 23:17: Bedside Glucose (Misc Panel) 108 12/04/18 23:50: Blood Gas Bicarbonate Standard 25.2, Venous Blood pH 7.372, Venous Blood Partial Pressure CO2 50.6H, Venous Blood Partial Pressure O2 30.2, Venous Blood Total Carbon Dioxide 30.3H, Venous Blood HCO3 28.7H, Venous Blood Oxygen Saturation 49.9L, Venous Blood Base Excess 2.4H, Troponin I < 0.02 12/05/18 00:10: Influenza Type A (RT-PCR) NEGATIVE, Influenza Type B (RT-PCR) NEGATIVE 12/05/18 00:28: 12/05/18 03:16: Lactic Acid Followup at 4 Hours 3.9*H 12/05/18 05:08: Bedside Glucose (Misc Panel) 154H 12/05/18 06:48: Nucleated Red Blood Cells % (auto) 0.0, Anion Gap 9, Glomerular Filtration Rate > 60.0, Lactic Acid Level 1.1, Blood Urea Nitrogen 37H, Creatinine 1.26, Sodium Level 137, Potassium Level 4.2, Chloride Level 100, Carbon Dioxide Level 28, Calcium Level 8.6L, Troponin I < 0.02 CBC/BMP Laboratory Tests 12/04/18 16:28 Red Blood Count 5.64, Mean Corpuscular Volume 90.4, Mean Corpuscular Hemoglobin 29.3, Mean Corpuscular Hemoglobin Concent 32.4, Red Cell Distribution Width 14.2, Neutrophils (%) (Auto) 83.0 H, Lymphocytes (%) (Auto) 7.6 L, Monocytes (%) (Auto) 4.8, Eosinophils (%) (Auto) 0.1, Basophils (%) (Auto) 0.7, Neutrophils # (Auto) 14.4 H, Lymphocytes # (Auto) 1.3 L, Monocytes # (Auto) 0.8, Eosinophils # (Auto) 0.0, Basophils # (Auto) 0.1 12/05/18 06:48 Red Blood Count 5.05, Mean Corpuscular Volume 90.5, Mean Corpuscular Hemoglobin 29.1, Mean Corpuscular Hemoglobin Concent 32.2, Red Cell Distribution Width 14.4, Calcium Level 8.6 L Microbiology Microbiology 12/05/18 Gram Stain, Received Pending 12/05/18 Sputum Culture, Received Pending 12/04/18 Blood Culture, Received Pending 12/04/18 Blood Culture, Received Pending LISE BROOKE MD Dec 05, 2018 08:30
[2018-12-05] MEDS: MORPHINE 4 MG/ML 1ML VIAL/SYRINGE (J2270) IV PRN (23:47)
[2018-12-06] VITALS (12 sets, daily range): BP systolic 107–146; BP diastolic 69–89; O2SAT 95–98
[2018-12-06] MEDS: IPRATROPIUM 0.5MG/ALBUTEROL 2.5MG INH SOL UD 3ML (DUONEB)(J7620) NEB SCH ×4 (02:00→19:49)
[2018-12-06] MEDS: MORPHINE 4 MG/ML 1ML VIAL/SYRINGE (J2270) IV PRN (04:28)
[2018-12-06] MEDS ORDERED: SLF 3 ML SYR IV PRN (06:15)
[2018-12-06 06:21] LABS: BASO % 0.1 % (0.0-1.0); HEMATOCRIT 40.8 % (42.0-52.0); HEMOGLOBIN 13.3 g/dl (13.5-17.5); LYMPH # 0.8 10^3/uL (1.5-5.0); LYMPH % 5.9 % (24.0-44.0); MEAN CORPUSCULAR HEMOGLOBIN 28.8 pg (27.0-33.0); MEAN CORPUSCULAR HGB CONC 32.6 g/dl (32.0-36.5); MEAN CORPUSCULAR VOLUME 88.3 fl (80.0-96.0); MONO # 0.2 10^3/uL (0.0-0.8); MONO % 1.8 % (0.0-5.0); NEUTROPHILS # 11.7 10^3/uL (1.5-8.5); NEUTROPHILS % 90.4 % (36.0-66.0); PLATELET COUNT, AUTOMATED 241 10^3/uL (150-450); RED BLOOD COUNT 4.62 10^6/uL (4.30-6.10); WHITE BLOOD COUNT 12.9 10^3/uL (4.0-10.0)
[2018-12-06 06:48] LABS: BLOOD UREA NITROGEN 33 MG/DL (7-18); CALCIUM LEVEL 8.3 MG/DL (8.8-10.2); CARBON DIOXIDE LEVEL 25 MEQ/L (21-32); CHLORIDE LEVEL 98 MEQ/L (98-107); CREATININE FOR GFR 0.95 MG/DL (0.70-1.30); GLOMERULAR FILTRATION RATE > 60.0 (>49); GLUCOSE, FASTING 133 MG/DL (70-100); POTASSIUM SERUM 3.8 MEQ/L (3.5-5.1); SODIUM LEVEL 132 MEQ/L (136-145)
[2018-12-06] MEDS: SYMBICORT 160/4.5MCG INHALER 6GM INH SCH ×2 (07:12→19:35)
[2018-12-06] MEDS: TIOTROPIUM INHALER/CAPSULE (SPIRIVA) INH SCH (07:12)
[2018-12-06] MEDS ORDERED: HumaLOG INSULIN (NovoLOG) PER UNIT SC SCH (07:30)
[2018-12-06] MEDS ORDERED: MIRALAX *UNIT DOSE* 17GM PACKET PO PRN (08:00)
--- NOTE | 2018-12-06 08:21 | ECGEPIP ---
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
[2018-12-06] MEDS: PANTOPRAZOLE 40MG INJ (PROTONIX) (C9113) IV SCH (08:34)
[2018-12-06] MEDS: CARVedilol 12.5 MG TAB PO SCH ×2 (08:35→20:17)
[2018-12-06] MEDS: HumaLOG INSULIN (NovoLOG) PER UNIT SC SCH ×4 (08:35→20:17)
[2018-12-06] MEDS: ALLOPURINOL 300 MG TAB PO SCH (08:35)
[2018-12-06] MEDS: THIAMINE HCL 200 MG/2 ML VIAL (J3411) IM SCH (08:36)
--- NOTE | 2018-12-06 10:19 | IPNPDOC ---
Subjective General Date/Time Seen The patient was seen on 12/06/18 at 10:16. Subject Chief Complaint/History The patient is a 63-year-old male admitted with a reason for visit of Cholecystitis, Hcap. Patient had a percutaneous cholecystostomy placed yesterday. He reports he feels 100% better. He denies any nausea, bloating. He got a Fleet's enema today and had 2 bowel movements making him feel better also. He has been afebrile. He reports some mild discomfort of the right upper quadrant area. Current Medications Current Medications Current Medications Medications (Trade) Dose Ordered Sig/Lennie Route PRN Reason Start Time Stop Time Status Last Admin Dose Admin Acetaminophen 1000 mg/IV Miscellaneous Supplies 100 ml @ 400 mls/hr Q8H IV 12/05/18 00:00 12/05/18 09:54 DC 12/05/18 08:13 Acetazolamide (Diamox) 250 mg BID PO 12/04/18 21:00 Hold 12/05/18 02:11 Albuterol Sulfate (Proventil Neb) 2.5 mg Q1HP PRN NEB SHORTNESS OF BREATH 12/04/18 23:45 Albuterol/ Ipratropium (Duoneb (Ipr 0.5mg/Alb 2.5mg)) 3 ml RQ6H NEB 12/05/18 02:00 12/05/18 12:51 Allopurinol (Zyloprim) 300 mg DAILY PO 12/05/18 09:00 12/06/18 08:35 Atorvastatin Calcium (Lipitor) 40 mg DAILY PO 12/05/18 09:00 Hold Budesonide/ Formoterol Fumarate (Symbicort 160/ 4.5mcg) 2 puff BID INH 12/05/18 21:00 12/06/18 07:12 Carvedilol (COReg) 25 mg BID PO 12/04/18 21:00 12/06/18 08:35 Dextrose (Dextrose 50%) 25 ml ASDIRECTED PRN IV SEE LABEL COMMENTS 12/04/18 20:45 Diatrizoate Meglum/ Diatrizoate Sod (Gastrografin) 10 ml Q30M PO 12/04/18 17:15 12/04/18 17:46 DC 12/04/18 17:46 Ertapenem 1 gm/ Sodium Chloride 50 ml @ 100 mls/hr Q24H IV 10/7/19 22:00 12/05/18 21:21 Folic Acid (Folic Acid) 1 mg DAILY PO 12/05/18 09:00 Hold Glucagon (Glucagon) 1 mg ASDIRECTED PRN SC SEE LABEL COMMENTS 12/04/18 20:45 Glucose (Glucose) 16 GM ASDIRECTED PRN PO SEE LABEL COMMENTS 12/04/18 20:45 Home Med (Med Rec Complete!) ASDIRECTED XX 12/04/18 21:00 12/04/18 20:54 DC Insulin Human Lispro (HumaLOG INSULIN) See Protocol Table AC MD 12/05/18 07:30 12/04/18 23:34 DC Insulin Human Lispro (HumaLOG INSULIN) See Protocol Table AC MD 12/06/18 07:30 12/05/18 18:14 DC Insulin Human Lispro (HumaLOG INSULIN) See Protocol Table AC MD 12/06/18 07:30 12/06/18 08:35 Insulin Human Lispro (HumaLOG INSULIN) See [id number] 12/05/18 00:00 12/05/18 17:35 DC Insulin Human Lispro (HumaLOG INSULIN) See Protocol Table QHS MD 12/04/18 21:00 12/04/18 23:34 DC Insulin Human Lispro (HumaLOG INSULIN) [facility] 12/05/18 21:00 12/05/18 18:14 DC Insulin Human Lispro (HumaLOG INSULIN) See Protocol Table [facility] 12/05/18 21:00 Lorazepam (Ativan) 2 mg ASDIRECTED PRN PO SEE PROTOCOL 12/05/18 00:45 Magnesium Oxide (Mag-Ox) 400 mg BID PO 12/04/18 21:00 12/05/18 08:17 DC 12/05/18 02:12 Methylprednisolone (SOLU medrol) 40 mg Q8H IV 12/05/18 16:00 12/05/18 17:40 DC 12/05/18 16:12 Methylprednisolone (SOLUmedrol) 80 mg Q8H IV 12/05/18 08:00 12/05/18 08:17 DC 12/05/18 08:13 Methylprednisolone (SOLUmedrol) 125 mg STAT STAT IV 12/04/18 23:37 12/04/18 23:41 DC 12/05/18 00:01 Morphine Sulfate (Morphine Sulfate Inj) 1 mg Q4HP PRN IV PAIN 12/04/18 23:15 12/05/18 17:14 DC 12/05/18 16:16 Morphine Sulfate (Morphine Sulfate Inj) 3 mg Q4HP PRN IV PAIN 12/05/18 17:15 12/06/18 04:28 Ondansetron HCl (ZOFRAN INJection) 4 mg Q6HP PRN IV NAUSEA OR VOMITING 12/05/18 08:15 Ondansetron HCl (Zofran) 4 mg Q6H PRN PO NAUSEA OR VOMITING 12/05/18 01:45 12/05/18 08:14 DC Oxycodone/ Acetaminophen (Percocet 5mg/ 325mg Tablet) 1 tab Q4HP PRN PO PAIN 12/05/18 17:45 Pantoprazole Sodium (Protonix) 40 mg DAILY IV 12/05/18 09:00 12/06/18 08:34 Polyethylene Glycol (Miralax) 1 pkt DAILYPRN PRN PO CONSTIPATION 12/06/18 08:00 12/06/18 08:34 Potassium Chloride (Micro-K Extencaps) 30 meq DAILY PO 12/05/18 09:00 12/05/18 08:12 DC Sodium Chloride 1,000 ml @ 70 mls/hr [id number] IV 12/04/18 21:00 12/05/18 17:35 DC 12/05/18 11:36 Sodium Chloride 1,000 ml @ 150 mls/hr Q6H40M IV 12/04/18 17:00 12/04/18 22:12 DC 12/04/18 16:54 Sodium Chloride (Saline Lock Flush) 2 ml ASDIRECTED PRN IV SEE LABEL COMMENTS 12/06/18 06:15 Sodium Chloride (Saline Lock Flush) 2 ml SLF IV 12/06/18 14:00 Spironolactone (Aldactone) 25 mg BID@0900,1700 PO 12/05/18 09:00 Hold Thiamine HCl (VITAMIN B1 INJection) 100 mg DAILY IM 12/05/18 09:00 12/06/18 08:36 Tiotropium [place] (Spiriva Handihaler) 1 inhalation DAILY@0800 INH 12/05/18 08:00 12/06/18 07:12 Torsemide (Demadex) 40 mg DAILY PO 12/05/18 09:00 Vitamin D (Vitamin D) 2,000 units DAILY PO 12/05/18 09:00 12/05/18 08:12 DC Allergies Coded Allergies: No Known Drug Allergies (Verified Allergy, Unknown, 08/16/18) Objective Physical Examination Examination GENERAL APPEARANCE: Looks more comfortable today. SKIN: Warm and dry. HEENT: Anicteric sclerae. LUNGS: [Clear to auscultation bilaterally. No wheezing appreciated]. HEART: [No chest wall abnormalities. Regular rate and rhythm with no murmurs appreciated]. ABDOMEN: Abdomen is round, soft, protuberant abdomen with a wide diastases in the upper abdomen. Percutaneous drain has this thick bile-stained brownish, purulent drainage normal overlying skin.. Minimally tender over the right upper quadrant area on deep palpation without guarding nontender rales. Abdomen is soft and nondistended. Vital Signs Vital Signs Date Time Temp Pulse Resp B/P (MAP) Pulse Ox O2 Delivery O2 Flow Rate FiO2 12/06/18 08:35 90 12/06/18 08:00 97.0 20 117/72 (87) 99 2.0 12/06/18 06:00 Nasal Cannula I&Os I&O- Last 24 Hours up to 6 AM 12/06/18 05:59 Intake Total 1740 ml Output Total 2660 ml Balance -920 ml Laboratory Data Labs 24H Laboratory Tests 2 12/05/18 11:38: Bedside Glucose (Misc Panel) 156H 12/05/18 21:18: Bedside Glucose (Misc Panel) 195H 12/06/18 06:03: Immature Granulocyte % (Auto) 1.8, White Blood Count 12.9H, Red Blood Count 4.62, Hemoglobin 13.3L, Hematocrit 40.8L, Mean Corpuscular Volume 88.3, Mean Corpuscular Hemoglobin 28.8, Mean Corpuscular Hemoglobin Concent 32.6, Red Cell Distribution Width 14.0, Platelet Count 241, Neutrophils (%) (Auto) 90.4H, Lymphocytes (%) (Auto) 5.9L, Monocytes (%) (Auto) 1.8, Eosinophils (%) (Auto) 0.0, Basophils (%) (Auto) 0.1, Neutrophils # (Auto) 11.7H, Lymphocytes # (Auto) 0.8L, Monocytes # (Auto) 0.2, Eosinophils # (Auto) 0.0, Basophils # (Auto) 0.0, Nucleated Red Blood Cells % (auto) 0.0, Anion Gap 9, Glomerular Filtration Rate > 60.0, Blood Urea Nitrogen 33H, Creatinine 0.95, Sodium Level 132L, Potassium Level 3.8, Chloride Level 98, Carbon Dioxide Level 25, Calcium Level 8.3L CBC/BMP Laboratory Tests 12/06/18 06:03 Red Blood Count 4.62, Mean Corpuscular Volume 88.3, Mean Corpuscular Hemoglobin 28.8, Mean Corpuscular Hemoglobin Concent 32.6, Red Cell Distribution Width 14.0, Neutrophils (%) (Auto) 90.4 H, Lymphocytes (%) (Auto) 5.9 L, Monocytes (%) (Auto) 1.8, Eosinophils (%) (Auto) 0.0, Basophils (%) (Auto) 0.1, Neutrophils # (Auto) 11.7 H, Lymphocytes # (Auto) 0.8 L, Monocytes # (Auto) 0.2, Eosinophils # (Auto) 0.0, Basophils # (Auto) 0.0, Calcium Level 8.3 L Microbiology Microbiology 12/05/18 Gram Stain - Final, Resulted 12/05/18 Abscess Culture, Resulted Pending 12/05/18 Anaerobic Culture, Received Pending 12/05/18 Gram Stain - Final, Complete 12/05/18 Sputum Culture - Final, Complete 12/04/18 Blood Culture - Preliminary, Resulted No growth after 24 hours . All specim... 12/04/18 Blood Culture - Preliminary, Resulted No growth after 24 hours . All specim... Impression Severe acute cholecystitis s/p percutaneous cholecystostomy tube placement (12/05/18) Morbid obesity COPD Continue broad spectrum abx while awaiting culture results from the cholecystostomy drain placement advance diet maybe dc home once stable on oral abx with the cholecystostomy tube interval cholecystectomy in roughly 4-6 weeks time May restart Eliquis. With patient's improvement, we can get out of bed to all the acute swelling has improved. May need some studies preoperatively to further define the degree of inflammation, damage to the gallbladder but I could do this as an outpatient with visits to the clinic. Plan / VTE VTE Prophylaxis Ordered?: Yes DARSHAN RIBEIRO MD Dec 06, 2018 10:19
--- NOTE | 2018-12-06 10:49 | IPNPDOC ---
Subjective Date Seen The patient was seen on 12/06/18. Subjective Chief Complaint/HPI Abdominal pain is a little better today after the drain. Had 225 output in the drain in the last 12 hours and 135 before that after procedure yesterday. No fever or chills, no bowel movement. Does not complain of any SOB or cough. Objective Physical Examination General Exam: Positive: Alert, Cooperative, No Acute Distress Eye Exam: Positive: PERRLA, Conjunctiva & lids normal, EOMI; Negative: Sclera icteric ENT Exam: Positive: Atraumatic, Mucous membr. moist/pink, Pharynx Normal Neck Exam: Positive: Supple; Negative: JVD, thyromegaly Chest Exam: Positive: Clear to auscultation, Diminished Heart Exam: Positive: Rate Normal, Regular Rhythm, Normal S1, Normal S2; Negative: Murmurs, Rubs Telemetry: Positive: No significant arrhythmia Abdomen Exam: Positive: BS Hyperactive, Tenderness (right upper quadrant at the site of the drain.), Other (has cholecystostomy drain in place, long midline scar, hugely obese abdomen.) Extremity Exam: Positive: Edema (trace edema); Negative: Clubbing, Cyanosis Assessment /Plan Assessment This is a 63-year-old obese male with pertinent past medical history of systolic congestive heart failure, restrictive cardiomyopathy, hypertension, COPD, atrial fibrillation on Eliquis, obstructive sleep apnea with noncompliance on CPAP, history of testicular cancer, and history of abdominal repair, who presented for the third time in the past month with diffuse abdominal pain and pressure. CT abdomen imaging in ED showed ruptured acute cholecystitis with liver involvement and left lower lobe focal consolidation. Acute ruptured cholecystitis with pericholecystic fluid/abscess and liver involvement as per 12/[address] s/p cholecystostomy drain placement on 12/05/18 Continue with Ertapenem Advance diet as per surgery will discuss with surgery regarding restarting of eliquis. will advance diet. Healthcare-associated pneumonia (HCAP) Patient had left lower lobe small focal consolidation on 12/04 CT imaging Patient has been in the hospital 3 times in the past month counting this visit. Ertapenem Sepsis due to ruptured acute cholecystits and pneumonia. ertapenem 2 blood cultures negative till date. Drain fluid sent for culture and gram stain, sputum negative. Acute exacerbation of COPD, likely secondary to HCAP now improved. continue spiriva, duonebs, steroids stopped. titrate patient's oxygen saturation levels to 88-92% Chronic respiratory failure with hypoxia continue oxygen supplementation. Systolic CHF with previous low EF History of cardiomyopathy. Echocardiogram 02/2018 showed ejection fraction of 50%, mildly dilated left ventricle, mildly dilated left atrium, dilated aortic root, elevated right-sided pressures. watch for fluid overload will restart diuretics as needed. strict monitoring of I&O with daily weights Diabetes mellitus A1c 6.6 Patient's home hypoglycemic medications were held Patient placed on insulin sliding scale Hypertension with hypertensive heart disease continue coreg, diuretics held Chronic alcohol abuse no signs of withdrawal CIWA protocol ordered with 2mg po ativan when score is 8 or greater pt on fall risk and seizure precautions continue thiamine. will resume folate when eating po. Obstructive sleep apnea, noncompliant with home CPAP Cpap noncompliant at home. Per pt, his sister is the only one who can bring his cpap in to hospital, but she is currently sick. Continuous pulse ox ordered [place] resolved due to poor oral intake due to abdominal pain and being on diuretics. Atrial fibrillation, on Eliquis continue coreg Patient's Eliquis held in anticipation of procedure. will resume when OK with surgery Gout Continue with patient's home allopurinol Morbid obesity BMI of 40 reports that a few months ago he was supposed to have a bariatric procedure but the bariatric surgeon had to abandon the case as he was not able to gain entry into the abdomen. He tried performing a laparoscopy and also made a small supraumbilical incision and was not able to enter the abdomen at all. 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 Eliquis on hold H/O Testicular cancer with orchiectomy and lymph node resection full exploratory laparotomy incision for periaortic lymph node dissection for prior history of testicular cancer in the 1970s. Incisional and ventral hernias developed hernias on the laparotomy site in 2017 had emergent laparoscopic repair of the hernias where he had some incarcerated omental tissue Also had inguinal hernia repair. History of nonsustained ventricular tachycardia (V-TACH). no issues at present. Fibronodular opacities in the lower lobes of the lungs bilaterally. The largest currently visible in the left lower lobe measuring 19 mm. DVT prophylaxis: Patient's home Eliquis medication was held. Teds and sequentials were ordered. Stress ulcer prophylaxis: 40 mg Protonix ordered Plan/VTE VTE Prophylaxis Ordered?: Yes VS, I&O, 24H, Fishbone Vital Signs/I&O Vital Signs Date Time Temp Pulse Resp B/P (MAP) Pulse Ox O2 Delivery O2 Flow Rate FiO2 12/06/18 06:00 96 Nasal Cannula 2.0 12/06/18 06:00 66 124/79 12/06/18 04:38 18 12/06/18 04:00 97.9 I&O- Last 24 Hours up to 6 AM 12/06/18 05:59 Intake Total 1740 ml Output Total 2660 ml Balance -920 ml Laboratory Data 24H LABS Laboratory Tests 2 12/05/18 06:48: Nucleated Red Blood Cells % (auto) 0.0, Anion Gap 9, Glomerular Filtration Rate > 60.0, Lactic Acid Level 1.1, Blood Urea Nitrogen 37H, Creatinine 1.26, Sodium Level 137, Potassium Level 4.2, Chloride Level 100, Carbon Dioxide Level 28, Calcium Level 8.6L, Troponin I < 0.02, Procalcitonin 0.46 12/05/18 11:38: Bedside Glucose (Misc Panel) 156H 12/05/18 21:18: Bedside Glucose (Misc Panel) 195H 12/06/18 06:03: Nucleated Red Blood Cells % (auto) 0.0, Immature Granulocyte % (Auto) 1.8, White Blood Count 12.9H, Red Blood Count 4.62, Hemoglobin 13.3L, Hematocrit 40.8L, Mean Corpuscular Volume 88.3, Mean Corpuscular Hemoglobin 28.8, Mean Corpuscular Hemoglobin Concent 32.6, Red Cell Distribution Width 14.0, Platelet Count 241, Neutrophils (%) (Auto) 90.4H, Lymphocytes (%) (Auto) 5.9L, Monocytes (%) (Auto) 1.8, Eosinophils (%) (Auto) 0.0, Basophils (%) (Auto) 0.1, Neutrophils # (Auto) 11.7H, Lymphocytes # (Auto) 0.8L, Monocytes # (Auto) 0.2, Eosinophils # (Auto) 0.0, Basophils # (Auto) 0.0 CBC/BMP Laboratory Tests 12/05/18 06:48 Red Blood Count 5.05, Mean Corpuscular Volume 90.5, Mean Corpuscular Hemoglobin 29.1, Mean Corpuscular Hemoglobin Concent 32.2, Red Cell Distribution Width 14.4, Calcium Level 8.6 L 12/06/18 06:03 Red Blood Count 4.62, Mean Corpuscular Volume 88.3, Mean Corpuscular Hemoglobin 28.8, Mean Corpuscular Hemoglobin Concent 32.6, Red Cell Distribution Width 14.0, Neutrophils (%) (Auto) 90.4 H, Lymphocytes (%) (Auto) 5.9 L, Monocytes (%) (Auto) 1.8, Eosinophils (%) (Auto) 0.0, Basophils (%) (Auto) 0.1, Neutrophils # (Auto) 11.7 H, Lymphocytes # (Auto) 0.8 L, Monocytes # (Auto) 0.2, Eosinophils # (Auto) 0.0, Basophils # (Auto) 0.0 Microbiology Microbiology 12/05/18 Gram Stain, Received Pending 12/05/18 Abscess Culture, Received Pending 12/05/18 Anaerobic Culture, Received Pending 12/05/18 Gram Stain - Final, Complete 12/05/18 Sputum Culture - Final, Complete 12/04/18 Blood Culture - Preliminary, Resulted No growth after 24 hours . All specim... 12/04/18 Blood Culture - Preliminary, Resulted No growth after 24 hours . All specim... LISE BROOKE MD Dec 06, 2018 06:48
[2018-12-06] MEDS: TORSEMIDE 20 MG TAB PO SCH (11:46)
[2018-12-06] MEDS: SLF 3 ML SYR IV SCH ×2 (14:16→22:25)
[2018-12-06] MEDS: APIXABAN 5 MG TAB (ELIQUIS) PO SCH ×2 (14:16→20:17)
[2018-12-06] MEDS: ERTAPENEM SODIUM 1 GM in NS MINI-BAG PLUS 50 ML IV SCH (22:23)
[2018-12-06] MEDS: PERCOCET 5MG/325MG TAB PO PRN (22:34)
[2018-12-07] MEDS: IPRATROPIUM 0.5MG/ALBUTEROL 2.5MG INH SOL UD 3ML (DUONEB)(J7620) NEB SCH ×4 (01:07→20:00)
[2018-12-07] MEDS: SLF 3 ML SYR IV SCH ×3 (05:51→23:11)
[2018-12-07 05:55] LABS: BASO % 0.1 % (0.0-1.0); EOS % 0.1 % (0.0-3.0); HEMATOCRIT 39.4 % (42.0-52.0); HEMOGLOBIN 12.9 g/dl (13.5-17.5); LYMPH # 1.6 10^3/uL (1.5-5.0); LYMPH % 21.8 % (24.0-44.0); MEAN CORPUSCULAR HEMOGLOBIN 29.5 pg (27.0-33.0); MEAN CORPUSCULAR HGB CONC 32.7 g/dl (32.0-36.5); MEAN CORPUSCULAR VOLUME 90.2 fl (80.0-96.0); MONO # 0.5 10^3/uL (0.0-0.8); MONO % 6.2 % (0.0-5.0); NEUTROPHILS # 5.2 10^3/uL (1.5-8.5); NEUTROPHILS % 70.6 % (36.0-66.0); PLATELET COUNT, AUTOMATED 191 10^3/uL (150-450); RED BLOOD COUNT 4.37 10^6/uL (4.30-6.10); WHITE BLOOD COUNT 7.4 10^3/uL (4.0-10.0)
[2018-12-07 06:00] VITALS: BP 114/71
[2018-12-07 06:20] LABS: ALBUMIN 1.9 GM/DL (3.2-5.2); ALT/SGPT 22 U/L (12-78); BILIRUBIN,TOTAL 0.2 MG/DL (0.2-1.0); BLOOD UREA NITROGEN 35 MG/DL (7-18); CALCIUM LEVEL 7.9 MG/DL (8.8-10.2); CARBON DIOXIDE LEVEL 30 MEQ/L (21-32); CHLORIDE LEVEL 98 MEQ/L (98-107); CREATININE FOR GFR 1.15 MG/DL (0.70-1.30); GLOMERULAR FILTRATION RATE > 60.0 (>49); GLUCOSE, FASTING 119 MG/DL (70-100); POTASSIUM SERUM 3.4 MEQ/L (3.5-5.1); SODIUM LEVEL 134 MEQ/L (136-145); TOTAL PROTEIN 5.5 GM/DL (6.4-8.2)
[2018-12-07] MEDS: TIOTROPIUM INHALER/CAPSULE (SPIRIVA) INH SCH (07:29)
[2018-12-07] MEDS: SYMBICORT 160/4.5MCG INHALER 6GM INH SCH ×2 (07:30→20:21)
--- NOTE | 2018-12-07 08:08 | IPNPDOC ---
Subjective General Date/Time Seen The patient was seen on 12/07/18 at 08:07. Subject Chief Complaint/History The patient is a 63-year-old male admitted with a reason for visit of Cholecystitis, Hcap. Current Medications Current Medications Current Medications Medications (Trade) Dose Ordered Sig/Lennie Route PRN Reason Start Time Stop Time Status Last Admin Dose Admin Acetaminophen 1000 mg/IV Miscellaneous Supplies 100 ml @ 400 mls/hr Q8H IV 12/05/18 00:00 12/05/18 09:54 DC 12/05/18 08:13 Acetazolamide (Diamox) 250 mg BID PO 12/04/18 21:00 Hold 12/05/18 02:11 Albuterol Sulfate (Proventil Neb) 2.5 mg Q1HP PRN NEB SHORTNESS OF BREATH 12/04/18 23:45 Albuterol/ Ipratropium (Duoneb (Ipr 0.5mg/Alb 2.5mg)) 3 ml RQ6H NEB 12/05/18 02:00 12/07/18 01:07 Allopurinol (Zyloprim) 300 mg DAILY PO 12/05/18 09:00 12/06/18 08:35 Apixaban (Eliquis) 5 mg BID PO 12/06/18 09:00 12/06/18 20:17 Atorvastatin Calcium (Lipitor) 40 mg DAILY PO 12/05/18 09:00 Hold Budesonide/ Formoterol Fumarate (Symbicort 160/ 4.5mcg) 2 puff BID INH 12/05/18 21:00 12/07/18 07:30 Carvedilol (COReg) 25 mg BID PO 12/04/18 21:00 12/06/18 20:17 Dextrose (Dextrose 50%) 25 ml ASDIRECTED PRN IV SEE LABEL COMMENTS 12/04/18 20:45 Diatrizoate Meglum/ Diatrizoate Sod (Gastrografin) 10 ml Q30M PO 12/04/18 17:15 12/04/18 17:46 DC 12/04/18 17:46 Ertapenem 1 gm/ Sodium Chloride 50 ml @ 100 mls/hr Q24H IV 12/04/18 22:00 12/06/18 22:23 Folic Acid (Folic Acid) 1 mg DAILY PO 12/05/18 09:00 Hold Glucagon (Glucagon) 1 mg ASDIRECTED PRN SC SEE LABEL COMMENTS 12/04/18 20:45 Glucose (Glucose) 16 GM ASDIRECTED PRN PO SEE LABEL COMMENTS 12/04/18 20:45 Home Med (Med Rec Complete!) ASDIRECTED XX 12/04/18 21:00 12/04/18 20:54 DC Insulin Human Lispro (HumaLOG INSULIN) See Protocol Table AC ID 12/05/18 07:30 12/04/18 23:34 DC Insulin Human Lispro (HumaLOG INSULIN) See Protocol Table AC ID 12/06/18 07:30 12/05/18 18:14 DC Insulin Human Lispro (HumaLOG INSULIN) See Protocol Table AC ID 12/06/18 07:30 12/06/18 18:03 Insulin Human Lispro (HumaLOG INSULIN) See [facility] Table [facility] 12/05/18 00:00 12/05/18 17:35 DC Insulin Human Lispro (HumaLOG INSULIN) See Protocol Table QHS ID 12/04/18 21:00 12/04/18 23:34 DC Insulin Human Lispro (HumaLOG INSULIN) See Protocol Table QHS ID 12/05/18 21:00 12/05/18 18:14 DC Insulin Human Lispro (HumaLOG INSULIN) See Protocol Table QHS ID 12/05/18 21:00 Lorazepam (Ativan) 2 mg ASDIRECTED PRN PO SEE PROTOCOL 12/05/18 00:45 Cancel Magnesium Oxide (Mag-Ox) 400 mg BID PO 12/04/18 21:00 12/05/18 08:17 DC 12/05/18 02:12 Methylprednisolone (SOLU medrol) 40 mg Q8H IV 12/05/18 16:00 12/05/18 17:40 DC 12/05/18 16:12 Methylprednisolone (SOLUmedrol) 80 mg Q8H IV 12/05/18 08:00 12/05/18 08:17 DC 12/05/18 08:13 Methylprednisolone (SOLUmedrol) 125 mg STAT STAT IV 12/04/18 23:37 12/04/18 23:41 DC 12/05/18 00:01 Morphine Sulfate (Morphine Sulfate Inj) 1 mg Q4HP PRN IV PAIN 12/04/18 23:15 12/05/18 17:14 DC 12/05/18 16:16 Morphine Sulfate (Morphine Sulfate Inj) 3 mg Q4HP PRN IV PAIN 12/05/18 17:15 12/06/18 04:28 Ondansetron HCl (ZOFRAN INJection) 4 mg Q6HP PRN IV NAUSEA OR VOMITING 12/05/18 08:15 Ondansetron HCl (Zofran) 4 mg Q6H PRN PO NAUSEA OR VOMITING 12/05/18 01:45 12/05/18 08:14 DC Oxycodone/ Acetaminophen (Percocet 5mg/ 325mg Tablet) 1 tab Q4HP PRN PO PAIN 12/05/18 17:45 12/06/18 22:34 Pantoprazole Sodium (Protonix) 40 mg DAILY IV 12/05/18 09:00 12/06/18 08:34 Polyethylene Glycol (Miralax) 1 pkt DAILYPRN PRN PO CONSTIPATION 12/06/18 08:00 12/06/18 08:34 Potassium Chloride (Micro-K Extencaps) 30 meq DAILY PO 12/05/18 09:00 12/05/18 08:12 DC Sodium Chloride 1,000 ml @ 70 mls/hr [id number] IV 12/04/18 21:00 12/05/18 17:35 DC 12/05/18 11:36 Sodium Chloride 1,000 ml @ 150 mls/hr Q6H40M IV 12/04/18 17:00 12/04/18 22:12 DC 12/04/18 16:54 Sodium Chloride (Saline Lock Flush) 2 ml ASDIRECTED PRN IV SEE LABEL COMMENTS 12/06/18 06:15 Sodium Chloride (Saline Lock Flush) 2 ml SLF IV 12/06/18 14:00 12/07/18 05:51 Spironolactone (Aldactone) 25 mg BID@0900,1700 PO 12/05/18 09:00 Hold Thiamine HCl (VITAMIN B1 INJection) 100 mg DAILY IM 12/05/18 09:00 12/06/18 08:36 Tiotropium [place] (Spiriva Handihaler) 1 inhalation DAILY@0800 INH 12/05/18 08:00 12/07/18 07:29 Torsemide (Demadex) 40 mg DAILY PO 12/05/18 09:00 12/06/18 11:46 Vitamin D (Vitamin D) 2,000 units DAILY PO 12/05/18 09:00 12/05/18 08:12 DC Allergies Coded Allergies: No Known Drug Allergies (Verified Allergy, Unknown, 08/16/18) Objective Physical Examination Examination GENERAL APPEARANCE:[Patient seen, laying in bed, awake, alert, and oriented. Comfortable, in no acute distress]. SKIN: [Warm and moist]. HEENT: [Normocephalic, atraumatic. [place] palpebral conjunctiva, anicteric sclerae. Lips and mucosa appear moist]. NECK: [Supple, no thyromegaly. No obvious jugular venous distention]. LUNGS: [Clear to auscultation bilaterally. No wheezing appreciated]. HEART: [No chest wall abnormalities. Regular rate and rhythm with no murmurs appreciated]. ABDOMEN: Abdomen is , soft, . [No hepatosplenomegaly. No umbilical or groin herniations, nondistended. No noticeable rebound or guarding. No grimacing with palpation. No rebound tenderness. No masses appreciated]. EXTREMITIES: [Extremities have no deformities. No edema identified]. Vital Signs Vital Signs Date Time Temp Pulse Resp B/P (MAP) Pulse Ox O2 Delivery O2 Flow Rate FiO2 12/07/18 06:00 98.2 81 17 114/71 (85) 97 12/06/18 19:45 2.0 12/06/18 06:00 Nasal Cannula I&Os I&O- Last 24 Hours up to 6 AM 12/07/18 06:00 Intake Total 1960 ml Output Total 3040 ml Balance -1080 ml Laboratory Data Labs 24H Laboratory Tests 2 12/06/18 11:38: Bedside Glucose (Misc Panel) 137H 12/06/18 17:52: Bedside Glucose (Misc Panel) 111 12/06/18 19:49: Bedside Glucose (Misc Panel) 127H 12/07/18 05:33: Immature Granulocyte % (Auto) 1.2, White Blood Count 7.4, Red Blood Count 4.37, Hemoglobin 12.9L, Hematocrit 39.4L, Mean Corpuscular Volume 90.2, Mean Corpuscular Hemoglobin 29.5, Mean Corpuscular Hemoglobin Concent 32.7, Red Cell Distribution Width 14.0, Platelet Count 191, Neutrophils (%) (Auto) 70.6H, Lymphocytes (%) (Auto) 21.8L, Monocytes (%) (Auto) 6.2H, Eosinophils (%) (Auto) 0.1, Basophils (%) (Auto) 0.1, Neutrophils # (Auto) 5.2, Lymphocytes # (Auto) 1.6, Monocytes # (Auto) 0.5, Eosinophils # (Auto) 0.0, Basophils # (Auto) 0.0, Nucleated Red Blood Cells % (auto) 0.0, Anion Gap 6L, Glomerular Filtration Rate > 60.0, Blood Urea Nitrogen 35H, Creatinine 1.15, Sodium Level 134L, Potassium Level 3.4L, Chloride Level 98, Carbon Dioxide Level 30, Calcium Level 7.9L, Aspartate Amino Transf (AST/SGOT) 10, Alanine Aminotransferase (ALT/SGPT) 22, Alkaline Phosphatase 99, Total Bilirubin 0.2#, Total Protein 5.5L, Albumin 1.9L, Albumin/Globulin Ratio 0.53L CBC/BMP Laboratory Tests 12/07/18 05:33 Red Blood Count 4.37, Mean Corpuscular Volume 90.2, Mean Corpuscular Hemoglobin 29.5, Mean Corpuscular Hemoglobin Concent 32.7, Red Cell Distribution Width 14.0, Neutrophils (%) (Auto) 70.6 H, Lymphocytes (%) (Auto) 21.8 L, Monocytes (%) (Auto) 6.2 H, Eosinophils (%) (Auto) 0.1, Basophils (%) (Auto) 0.1, Neutrophils # (Auto) 5.2, Lymphocytes # (Auto) 1.6, Monocytes # (Auto) 0.5, Eosinophils # (Auto) 0.0, Basophils # (Auto) 0.0, Calcium Level 7.9 L, Aspartate Amino Transf (AST/SGOT) 10, Alanine Aminotransferase (ALT/SGPT) 22, Alkaline Phosphatase 99, Total Bilirubin 0.2 #, Total Protein 5.5 L, Albumin 1.9 L Microbiology Microbiology 12/05/18 Gram Stain - Final, Resulted 12/05/18 Abscess Culture, Resulted Pending 12/05/18 Anaerobic Culture, Received Pending 12/05/18 Gram Stain - Final, Complete 12/05/18 Sputum Culture - Final, Complete 12/04/18 Blood Culture - Preliminary, Resulted No Growth after 48 hours. All Specime... 12/04/18 Blood Culture - Preliminary, Resulted No Growth after 48 hours. All Specime... Impression Severe acute cholecystitis s/p percutaneous cholecystostomy tube placement (12/05/18) Morbid obesity COPD Continue broad spectrum abx while awaiting culture results from the cholecystostomy drain placement cultures so far show mixed g(+) and g(-) organisms. No speciation yet. advance diet maybe dc home once stable on oral abx with the cholecystostomy tube interval cholecystectomy in roughly 4-6 weeks time May restart Eliquis. With patient's improvement, we can get out of bed to all the acute swelling has improved. May need some studies preoperatively to further define the degree of inflammation, damage to the gallbladder but I could do this as an outpatient with visits to the clinic. Plan / VTE VTE Prophylaxis Ordered?: Yes DARSHAN RIBEIRO MD Dec 07, 2018 08:08
[2018-12-07] MEDS: HumaLOG INSULIN (NovoLOG) PER UNIT SC SCH ×4 (08:20→21:00)
[2018-12-07] MEDS: APIXABAN 5 MG TAB (ELIQUIS) PO SCH ×2 (08:21→23:13)
[2018-12-07] MEDS: ALLOPURINOL 300 MG TAB PO SCH (08:21)
[2018-12-07] MEDS: TORSEMIDE 20 MG TAB PO SCH (08:21)
[2018-12-07] MEDS: CARVedilol 12.5 MG TAB PO SCH ×2 (08:21→21:00)
[2018-12-07] MEDS: PANTOPRAZOLE 40MG INJ (PROTONIX) (C9113) IV SCH (08:22)
[2018-12-07] MEDS: FOLIC ACID 1 MG TAB PO SCH (08:23)
[2018-12-07] MEDS: ATORVASTATIN 20 MG TAB PO SCH (08:23)
[2018-12-07] MEDS: AcetaZOLAMIDE 250 MG TAB PO SCH ×2 (08:23→21:00)
[2018-12-07] MEDS: SPIRONOLACTONE 25 MG TAB PO SCH ×2 (08:23→16:34)
--- NOTE | 2018-12-07 11:46 | IPNPDOC ---
Subjective Date Seen The patient was seen on 12/07/18. Subjective Chief Complaint/HPI abdominal pain is a little better. It is located in the right upper quadrant. No fever or chills, no chest pain or SOB. Objective Physical Examination General Exam: Positive: Alert, Cooperative, No Acute Distress Eye Exam: Positive: PERRLA, Conjunctiva & lids normal, EOMI; Negative: Sclera icteric ENT Exam: Positive: Atraumatic, Mucous membr. moist/pink, Pharynx Normal Neck Exam: Positive: Supple; Negative: JVD, thyromegaly Chest Exam: Positive: Clear to auscultation, Diminished Heart Exam: Positive: Rate Normal, Regular Rhythm, Normal S1, Normal S2; Negative: Murmurs, Rubs Telemetry: Positive: No significant arrhythmia Abdomen Exam: Positive: BS Hyperactive, Tenderness (right upper quadrant at the site of the drain.), Other (has cholecystostomy drain in place, long midline scar, hugely obese abdomen.) Extremity Exam: Positive: Edema (trace edema); Negative: Clubbing, Cyanosis Assessment /Plan Assessment This is a 63-year-old obese male with pertinent past medical history of systolic congestive heart failure, restrictive cardiomyopathy, hypertension, COPD, atrial fibrillation on Eliquis, obstructive sleep apnea with noncompliance on CPAP, history of testicular cancer, and history of abdominal repair, who presented for the third time in the past month with diffuse abdominal pain and pressure. CT abdomen imaging in ED showed ruptured acute cholecystitis with liver involvement and left lower lobe focal consolidation. Acute ruptured cholecystitis with pericholecystic fluid/abscess and liver involvement as per 12/[address] s/p cholecystostomy drain placement on 12/05/18 Continue with Ertapenem Carb consistent diet. I anticipate another 2 to 3 days of iv antibiotics then discharge home with oral antibiotics with drain in place. To follow up with Dr Matthew for interval cholecystectomy in 4 to 6 weeks. will need further imaging as an outpatient prior to surgery to be arranged by Dr matthew. Healthcare-associated pneumonia (HCAP) Patient had left lower lobe small focal consolidation on 12/04 CT imaging Patient has been in the hospital 3 times in the past month counting this visit. Ertapenem Sepsis due to ruptured acute cholecystits and pneumonia. ertapenem 2 blood cultures negative till date. Drain fluid sent for culture and gram stain, sputum negative. Acute exacerbation of COPD, likely secondary to HCAP now improved. continue spiriva, duonebs, steroids stopped. titrate patient's oxygen saturation levels to 88-92% Chronic respiratory failure with hypoxia continue oxygen supplementation. Systolic CHF with previous low EF History of cardiomyopathy. Echocardiogram 02/2018 showed ejection fraction of 50%, mildly dilated left ventricle, mildly dilated left atrium, dilated aortic root, elevated right-sided pressures. watch for fluid overload will restart diuretics as needed. strict monitoring of I&O with daily weights Diabetes mellitus A1c 6.6 Patient's home hypoglycemic medications were held Patient placed on insulin sliding scale Hypertension with hypertensive heart disease continue coreg, diuretics held Chronic alcohol abuse no signs of withdrawal CIWA protocol ordered with 2mg po ativan when score is 8 or greater pt on fall risk and seizure precautions continue thiamine. will resume folate when eating po. Obstructive sleep apnea, noncompliant with home CPAP Cpap noncompliant at home. Per pt, his sister is the only one who can bring his cpap in to hospital, but she is currently sick. Continuous pulse ox ordered [place] resolved due to poor oral intake due to abdominal pain and being on diuretics. Atrial fibrillation, on Eliquis continue coreg Patient's Eliquis held in anticipation of procedure. will resume when OK with surgery Gout Continue with patient's home allopurinol Morbid obesity BMI of 40 reports that a few months ago he was supposed to have a bariatric procedure but the bariatric surgeon had to abandon the case as he was not able to gain entry into the abdomen. He tried performing a laparoscopy and also made a small supraumbilical incision and was not able to enter the abdomen at all. 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 Eliquis on hold H/O Testicular cancer with orchiectomy and lymph node resection full exploratory laparotomy incision for periaortic lymph node dissection for prior history of testicular cancer in the 1970s. Incisional and ventral hernias developed hernias on the laparotomy site in 2017 had emergent laparoscopic repair of the hernias where he had some incarcerated omental tissue Also had inguinal hernia repair. History of nonsustained ventricular tachycardia (V-TACH). no issues at present. Fibronodular opacities in the lower lobes of the lungs bilaterally. The largest currently visible in the left lower lobe measuring 19 mm. DVT prophylaxis: Patient's home Eliquis medication was held. Teds and sequentials were ordered. Stress ulcer prophylaxis: 40 mg Protonix ordered Plan/VTE VTE Prophylaxis Ordered?: Yes VS, I&O, 24H, Fishbone Vital Signs/I&O Vital Signs Date Time Temp Pulse Resp B/P (MAP) Pulse Ox O2 Delivery O2 Flow Rate FiO2 12/07/18 08:21 87 109/71 12/07/18 06:00 98.2 17 97 12/06/18 19:45 2.0 12/06/18 06:00 Nasal Cannula I&O- Last 24 Hours up to 6 AM 12/07/18 06:00 Intake Total 1960 ml Output Total 3040 ml Balance -1080 ml Laboratory Data 24H LABS Laboratory Tests 2 12/06/18 17:52: Bedside Glucose (Misc Panel) 111 12/06/18 19:49: Bedside Glucose (Misc Panel) 127H 12/07/18 05:33: Immature Granulocyte % (Auto) 1.2, White Blood Count 7.4, Red Blood Count 4.37, Hemoglobin 12.9L, Hematocrit 39.4L, Mean Corpuscular Volume 90.2, Mean Corpuscular Hemoglobin 29.5, Mean Corpuscular Hemoglobin Concent 32.7, Red Cell Distribution Width 14.0, Platelet Count 191, Neutrophils (%) (Auto) 70.6H, Lymphocytes (%) (Auto) 21.8L, Monocytes (%) (Auto) 6.2H, Eosinophils (%) (Auto) 0.1, Basophils (%) (Auto) 0.1, Neutrophils # (Auto) 5.2, Lymphocytes # (Auto) 1.6, Monocytes # (Auto) 0.5, Eosinophils # (Auto) 0.0, Basophils # (Auto) 0.0, Nucleated Red Blood Cells % (auto) 0.0, Anion Gap 6L, Glomerular Filtration Rate > 60.0, Blood Urea Nitrogen 35H, Creatinine 1.15, Sodium Level 134L, Potassium Level 3.4L, Chloride Level 98, Carbon Dioxide Level 30, Calcium Level 7.9L, Aspartate Amino Transf (AST/SGOT) 10, Alanine Aminotransferase (ALT/SGPT) 22, Alkaline Phosphatase 99, Total Bilirubin 0.2#, Total Protein 5.5L, Albumin 1.9L, Albumin/Globulin Ratio 0.53L 12/07/18 11:24: Bedside Glucose (Misc Panel) 108 CBC/BMP Laboratory Tests 12/07/18 05:33 Red Blood Count 4.37, Mean Corpuscular Volume 90.2, Mean Corpuscular Hemoglobin 29.5, Mean Corpuscular Hemoglobin Concent 32.7, Red Cell Distribution Width 14.0, Neutrophils (%) (Auto) 70.6 H, Lymphocytes (%) (Auto) 21.8 L, Monocytes (%) (Auto) 6.2 H, Eosinophils (%) (Auto) 0.1, Basophils (%) (Auto) 0.1, Neutrophils # (Auto) 5.2, Lymphocytes # (Auto) 1.6, Monocytes # (Auto) 0.5, Eosinophils # (Auto) 0.0, Basophils # (Auto) 0.0, Calcium Level 7.9 L, Aspartate Amino Transf (AST/SGOT) 10, Alanine Aminotransferase (ALT/SGPT) 22, Alkaline Phosphatase 99, Total Bilirubin 0.2 #, Total Protein 5.5 L, Albumin 1.9 L Microbiology Microbiology 12/05/18 Gram Stain - Final, Resulted 12/05/18 Abscess Culture, Resulted Pending 12/05/18 Anaerobic Culture, Received Pending 12/05/18 Gram Stain - Final, Complete 12/05/18 Sputum Culture - Final, Complete 12/04/18 Blood Culture - Preliminary, Resulted No Growth after 48 hours. All Specime... 12/04/18 Blood Culture - Preliminary, Resulted No Growth after 48 hours. All Specime... LISE BROOKE MD Dec 07, 2018 11:46
[2018-12-07] MEDS: THIAMINE HCL 200 MG/2 ML VIAL (J3411) IM SCH (11:57)
[2018-12-07 14:00] VITALS: BP 108/72
[2018-12-07 22:00] VITALS: BP 84/48
[2018-12-07] MEDS: ERTAPENEM SODIUM 1 GM in NS MINI-BAG PLUS 50 ML IV SCH (22:00)
[2018-12-07 22:20] VITALS: BP 100/64
[2018-12-08 00:06] LABS: BODY FLUID CULTURE Not Indicated (.); LEGIONELLA ANTIGEN URINE Negative (Negative); ORGANISM ID Not indicated. (.); SPECIMEN SOURCE Urine (.); URINE STREP PNEUMONIAE ANTIGEN Negative (Negative)
[2018-12-08] MEDS: IPRATROPIUM 0.5MG/ALBUTEROL 2.5MG INH SOL UD 3ML (DUONEB)(J7620) NEB SCH ×4 (01:27→19:58)
[2018-12-08] MEDS: SLF 3 ML SYR IV SCH ×3 (05:22→22:11)
[2018-12-08] MEDS: PERCOCET 5MG/325MG TAB PO PRN ×2 (05:22→22:11)
[2018-12-08 05:49] LABS: BASO % 0.4 % (0.0-1.0); EOS % 0.3 % (0.0-3.0); HEMATOCRIT 41.7 % (42.0-52.0); HEMOGLOBIN 13.3 g/dl (13.5-17.5); LYMPH # 1.9 10^3/uL (1.5-5.0); LYMPH % 27.4 % (24.0-44.0); MEAN CORPUSCULAR HEMOGLOBIN 28.9 pg (27.0-33.0); MEAN CORPUSCULAR HGB CONC 31.9 g/dl (32.0-36.5); MEAN CORPUSCULAR VOLUME 90.5 fl (80.0-96.0); MONO # 0.5 10^3/uL (0.0-0.8); MONO % 6.8 % (0.0-5.0); NEUTROPHILS # 4.2 10^3/uL (1.5-8.5); NEUTROPHILS % 61.6 % (36.0-66.0); PLATELET COUNT, AUTOMATED 207 10^3/uL (150-450); RED BLOOD COUNT 4.61 10^6/uL (4.30-6.10); WHITE BLOOD COUNT 6.9 10^3/uL (4.0-10.0)
[2018-12-08 06:00] VITALS: BP 96/54
[2018-12-08 06:13] LABS: BLOOD UREA NITROGEN 25 MG/DL (7-18); CALCIUM LEVEL 7.9 MG/DL (8.8-10.2); CARBON DIOXIDE LEVEL 33 MEQ/L (21-32); CHLORIDE LEVEL 99 MEQ/L (98-107); CREATININE FOR GFR 1.04 MG/DL (0.70-1.30); GLOMERULAR FILTRATION RATE > 60.0 (>49); GLUCOSE, FASTING 88 MG/DL (70-100); POTASSIUM SERUM 3.3 MEQ/L (3.5-5.1); SODIUM LEVEL 137 MEQ/L (136-145)
[2018-12-08 06:20] VITALS: BP 112/62
[2018-12-08] MEDS ORDERED: POTASSIUM CHLORIDE 10 MEQ SR TABLET PO ONE (07:00)
[2018-12-08] MEDS: HumaLOG INSULIN (NovoLOG) PER UNIT SC SCH ×4 (07:30→21:00)
[2018-12-08] MEDS: SYMBICORT 160/4.5MCG INHALER 6GM INH SCH ×2 (07:37→19:57)
[2018-12-08] MEDS: TIOTROPIUM INHALER/CAPSULE (SPIRIVA) INH SCH (07:37)
[2018-12-08] MEDS: PANTOPRAZOLE 40MG INJ (PROTONIX) (C9113) IV SCH (08:36)
[2018-12-08] MEDS: FOLIC ACID 1 MG TAB PO SCH (08:36)
[2018-12-08] MEDS: THIAMINE HCL 200 MG/2 ML VIAL (J3411) IM SCH (08:36)
[2018-12-08] MEDS: TORSEMIDE 20 MG TAB PO SCH (08:36)
[2018-12-08] MEDS: ALLOPURINOL 300 MG TAB PO SCH (08:37)
[2018-12-08] MEDS: AcetaZOLAMIDE 250 MG TAB PO SCH (08:37)
[2018-12-08] MEDS: ATORVASTATIN 20 MG TAB PO SCH (08:37)
[2018-12-08] MEDS: SPIRONOLACTONE 25 MG TAB PO SCH ×2 (08:37→16:50)
[2018-12-08] MEDS: CARVedilol 12.5 MG TAB PO SCH ×2 (08:38→21:00)
[2018-12-08] MEDS: APIXABAN 5 MG TAB (ELIQUIS) PO SCH ×2 (08:38→22:11)
--- NOTE | 2018-12-08 09:39 | IPNPDOC ---
Text Note Date of Service The patient was seen on 12/08/18. NOTE Patient appears to be doing well. He still reports some fullness with eating but denies any further vomiting, sometimes mildly nauseous. He is having multiple bowel movements daily. He has been afebrile. On examination he was laying on the bed, slightly appears mildly down today but acting appropriately. No scleral icterus Lungs are relatively clear to auscultation no wheezing Regular heart rate and rhythm Obese, rounded and protuberant abdomen but relatively nondistended though there is some mild fullness over the right upper quadrant area. He is percutaneous cholecystostomy drain is still putting out purulent bilious material though less in amount. Drain sites covered it appears dry mildly tender on the right upper quadrant area Severe acute cholecystitis s/p percutaneous cholecystostomy tube placement (12/05/18) Morbid obesity COPD Continue broad spectrum abx while awaiting culture results from the cholecystostomy drain placement cultures show growth of Klebsiella and enterococcus and Escherichia coli. We will need to find the appropriate oral antibiotics for him. advance diet he is so far tolerating a diet actually does report fullness but no further vomiting. maybe dc home once stable on oral abx with the cholecystostomy tube interval cholecystectomy in roughly 4-6 weeks time May restart Eliquis. With patient's improvement, we can get out of bed to all the acute swelling has improved. May need some studies preoperatively to further define the degree of inflammation, damage to the gallbladder but I could do this as an outpatient with visits to the clinic. VS,Alen, I+O VS, Aurae, I+O Laboratory Tests 12/08/18 05:22 Red Blood Count 4.61, Mean Corpuscular Volume 90.5, Mean Corpuscular Hemoglobin 28.9, Mean Corpuscular Hemoglobin Concent 31.9 L, Red Cell Distribution Width 13.9, Neutrophils (%) (Auto) 61.6, Lymphocytes (%) (Auto) 27.4, Monocytes (%) (Auto) 6.8 H, Eosinophils (%) (Auto) 0.3, Basophils (%) (Auto) 0.4, Neutrophils # (Auto) 4.2, Lymphocytes # (Auto) 1.9, Monocytes # (Auto) 0.5, Eosinophils # (Auto) 0.0, Basophils # (Auto) 0.0, Calcium Level 7.9 L Vital Signs Date Time Temp Pulse Resp B/P (MAP) Pulse Ox O2 Delivery O2 Flow Rate FiO2 12/08/18 08:38 80 106/68 12/08/18 06:00 97.7 19 97 2.0 12/06/18 06:00 Nasal Cannula I&O- Last 24 Hours up to 6 AM 12/08/18 06:00 Intake Total 3770 ml Output Total 2915 ml Balance 855 ml DARSHAN RIBEIRO MD Dec 08, 2018 09:39
[2018-12-08 14:34] VITALS: BP 100/64
--- NOTE | 2018-12-08 19:54 | IPNPDOC ---
Subjective Date Seen The patient was seen on 12/08/18. Subjective Chief Complaint/HPI No complaints this am except for the right upper quadrant pain, having 2 loose stools yesterday. Review of vitals show blood pressure has been running low normal. Will put diuretics on hold and give fluid 500 cc bolus. No fever or chills. No chest pain or sob , no cough or phlegm. Objective Physical Examination General Exam: Positive: Alert, Cooperative, No Acute Distress Eye Exam: Positive: PERRLA, Conjunctiva & lids normal, EOMI; Negative: Sclera icteric ENT Exam: Positive: Atraumatic, Mucous membr. moist/pink, Pharynx Normal Neck Exam: Positive: Supple; Negative: JVD, thyromegaly Chest Exam: Positive: Clear to auscultation, Diminished Heart Exam: Positive: Rate Normal, Regular Rhythm, Normal S1, Normal S2; Negative: Murmurs, Rubs Telemetry: Positive: No significant arrhythmia Abdomen Exam: Positive: BS Hyperactive, Tenderness (right upper quadrant at the site of the drain.), Other (has cholecystostomy drain in place, long midline scar, hugely obese abdomen.) Extremity Exam: Positive: Edema (trace edema); Negative: Clubbing, Cyanosis Assessment /Plan Assessment This is a 63-year-old obese male with pertinent past medical history of systolic congestive heart failure, restrictive cardiomyopathy, hypertension, COPD, atrial fibrillation on Eliquis, obstructive sleep apnea with noncompliance on CPAP, history of testicular cancer, and history of abdominal repair, who presented for the third time in the past month with diffuse abdominal pain and p ressure. CT abdomen imaging in ED showed ruptured acute cholecystitis with liver involvement and left lower lobe focal consolidation. Low normal BPs No symptoms, no tachycardia. will hold the diuretics and give ivf. monitor. Acute ruptured cholecystitis with pericholecystic fluid/abscess and liver involvement as per 12/[address] s/p cholecystostomy drain placement on 12/05/18 Continue with Ertapenem Carb consistent diet. I anticipate another 2 to 3 days of iv antibiotics then discharge home with oral antibiotics with drain in place. To follow up with Dr Matthew for interval cholecystectomy in 4 to 6 weeks. will need further imaging as an outpatient prior to surgery to be arranged by Dr matthew. Healthcare-associated pneumonia (HCAP) Patient had left lower lobe small focal consolidation on 12/04 CT imaging Patient has been in the hospital 3 times in the past month counting this visit. Ertapenem Sepsis due to ruptured acute cholecystits and pneumonia. ertapenem 2 blood cultures negative till date. Drain fluid sent for culture and gram stain, sputum negative. Acute exacerbation of COPD, likely secondary to HCAP now improved. continue spiriva, duonebs, steroids stopped. titrate patient's oxygen saturation levels to 88-92% Chronic respiratory failure with hypoxia continue oxygen supplementation. Systolic CHF with previous low EF History of cardiomyopathy. Echocardiogram 02/2018 showed ejection fraction of 50%, mildly dilated left ventricle, mildly dilated left atrium, dilated aortic root, elevated right-sided pressures. watch for fluid overload will restart diuretics as needed. strict monitoring of I&O with daily weights Diabetes mellitus A1c 6.6 Patient's home hypoglycemic medications were held Patient placed on insulin sliding scale Hypertension with hypertensive heart disease continue coreg, diuretics held Chronic alcohol abuse no signs of withdrawal CIWA protocol ordered with 2mg po ativan when score is 8 or greater pt on fall risk and seizure precautions continue thiamine. will resume folate when eating po. Obstructive sleep apnea, noncompliant with home CPAP Cpap noncompliant at home. Per pt, his sister is the only one who can bring his cpap in to hospital, but she is currently sick. Continuous pulse ox ordered [place] resolved due to poor oral intake due to abdominal pain and being on diuretics. Atrial fibrillation, on Eliquis continue coreg Patient's Eliquis held in anticipation of procedure. will resume when OK with surgery Gout Continue with patient's home allopurinol Morbid obesity BMI of 40 reports that a few months ago he was supposed to have a bariatric procedure but the bariatric surgeon had to abandon the case as he was not able to gain entry into the abdomen. He tried performing a laparoscopy and also made a small supraumbilical incision and was not able to enter the abdomen at all. 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 Eliquis on hold H/O Testicular cancer with orchiectomy and lymph node resection full exploratory laparotomy incision for periaortic lymph node dissection for prior history of testicular cancer in the 1970s. Incisional and ventral hernias developed hernias on the laparotomy site in 2017 had emergent laparoscopic repair of the hernias where he had some incarcerated omental tissue Also had inguinal hernia repair. History of nonsustained ventricular tachycardia (V-TACH). no issues at present. Fibronodular opacities in the lower lobes of the lungs bilaterally. The largest currently visible in the left lower lobe measuring 19 mm. DVT prophylaxis: Patient's home Eliquis medication was held. Teds and sequentials were ordered. Stress ulcer prophylaxis: 40 mg Protonix ordered Plan/VTE VTE Prophylaxis Ordered?: Yes VS, I&O, 24H, Fishbone Vital Signs/I&O Vital Signs Date Time Temp Pulse Resp B/P (MAP) Pulse Ox O2 Delivery O2 Flow Rate FiO2 12/08/18 14:34 100/64 (76) 12/08/18 14:00 97.7 67 15 93 12/08/18 09:00 2.0 12/06/18 06:00 Nasal Cannula I&O- Last 24 Hours up to 6 AM 12/08/18 06:00 Intake Total 3770 ml Output Total 2915 ml Balance 855 ml Laboratory Data 24H LABS Laboratory Tests 2 12/07/18 21:32: Bedside Glucose (Misc Panel) 123H 12/08/18 05:22: Immature Granulocyte % (Auto) 3.5H, White Blood Count 6.9, Red Blood Count 4.61, Hemoglobin 13.3L, Hematocrit 41.7L, Mean Corpuscular Volume 90.5, Mean Corpuscular Hemoglobin 28.9, Mean Corpuscular Hemoglobin Concent 31.9L, Red Cell Distribution Width 13.9, Platelet Count 207, Neutrophils (%) (Auto) 61.6, Lymphocytes (%) (Auto) 27.4, Monocytes (%) (Auto) 6.8H, Eosinophils (%) (Auto) 0.3, Basophils (%) (Auto) 0.4, Neutrophils # (Auto) 4.2, Lymphocytes # (Auto) 1.9, Monocytes # (Auto) 0.5, Eosinophils # (Auto) 0.0, Basophils # (Auto) 0.0, Nucleated Red Blood Cells % (auto) 0.0, Anion Gap 5L, Glomerular Filtration Rate > 60.0, Blood Urea Nitrogen 25H, Creatinine 1.04, Sodium Level 137, Potassium Level 3.3L, Chloride Level 99, Carbon Dioxide Level 33H, Calcium Level 7.9L 12/08/18 11:26: Bedside Glucose (Misc Panel) 137H 12/08/18 16:40: Bedside Glucose (Misc Panel) 122H CBC/BMP Laboratory Tests 12/08/18 05:22 Red Blood Count 4.61, Mean Corpuscular Volume 90.5, Mean Corpuscular Hemoglobin 28.9, Mean Corpuscular Hemoglobin Concent 31.9 L, Red Cell Distribution Width 13.9, Neutrophils (%) (Auto) 61.6, Lymphocytes (%) (Auto) 27.4, Monocytes (%) (Auto) 6.8 H, Eosinophils (%) (Auto) 0.3, Basophils (%) (Auto) 0.4, Neutrophils # (Auto) 4.2, Lymphocytes # (Auto) 1.9, Monocytes # (Auto) 0.5, Eosinophils # (Auto) 0.0, Basophils # (Auto) 0.0, Calcium Level 7.9 L Microbiology Microbiology 12/05/18 Gram Stain - Final, Complete 12/05/18 Abscess Culture - Final, Complete Klebsiella Pneumoniae Escherichia Coli Enterococcus Faecalis 12/05/18 Anaerobic Culture - Final, Complete 12/05/18 Gram Stain - Final, Complete 12/05/18 Sputum Culture - Final, Complete 12/04/18 Blood Culture - Preliminary, Resulted No Growth after 72 hours. All specime... 12/04/18 Blood Culture - Preliminary, Resulted No Growth after 72 hours. All specime... LISE BROOKE MD Dec 08, 2018 19:54
[2018-12-08] MEDS ORDERED: SODIUM CHLORIDE 0.9% 1000ML IV ONE (20:00)
[2018-12-08 22:00] VITALS: BP 104/66
[2018-12-08] MEDS: ERTAPENEM SODIUM 1 GM in NS MINI-BAG PLUS 50 ML IV SCH (22:12)
[2018-12-09] MEDS: IPRATROPIUM 0.5MG/ALBUTEROL 2.5MG INH SOL UD 3ML (DUONEB)(J7620) NEB SCH ×4 (01:10→20:00)
[2018-12-09] MEDS: SLF 3 ML SYR IV SCH ×3 (05:25→21:28)
[2018-12-09 06:00] VITALS: BP 117/69
[2018-12-09 06:24] LABS: BASO % 0.5 % (0.0-1.0); EOS # 0.1 10^3/uL (0.0-0.5); EOS % 1.3 % (0.0-3.0); HEMATOCRIT 40.7 % (42.0-52.0); HEMOGLOBIN 12.8 g/dl (13.5-17.5); LYMPH # 1.8 10^3/uL (1.5-5.0); LYMPH % 29.8 % (24.0-44.0); MEAN CORPUSCULAR HEMOGLOBIN 28.4 pg (27.0-33.0); MEAN CORPUSCULAR HGB CONC 31.4 g/dl (32.0-36.5); MEAN CORPUSCULAR VOLUME 90.4 fl (80.0-96.0); MONO # 0.4 10^3/uL (0.0-0.8); MONO % 6.4 % (0.0-5.0); NEUTROPHILS # 3.6 10^3/uL (1.5-8.5); NEUTROPHILS % 59.7 % (36.0-66.0); PLATELET COUNT, AUTOMATED 212 10^3/uL (150-450); WHITE BLOOD COUNT 6.1 10^3/uL (4.0-10.0)
[2018-12-09 06:46] LABS: BLOOD UREA NITROGEN 21 MG/DL (7-18); CARBON DIOXIDE LEVEL 31 MEQ/L (21-32); CHLORIDE LEVEL 103 MEQ/L (98-107); CREATININE FOR GFR 1.01 MG/DL (0.70-1.30); GLOMERULAR FILTRATION RATE > 60.0 (>49); GLUCOSE, FASTING 88 MG/DL (70-100); POTASSIUM SERUM 3.2 MEQ/L (3.5-5.1); SODIUM LEVEL 139 MEQ/L (136-145)
[2018-12-09] MEDS: HumaLOG INSULIN (NovoLOG) PER UNIT SC SCH ×4 (07:30→21:00)
[2018-12-09] MEDS: TIOTROPIUM INHALER/CAPSULE (SPIRIVA) INH SCH (08:00)
[2018-12-09] MEDS: ATORVASTATIN 20 MG TAB PO SCH (08:23)
[2018-12-09] MEDS: ALLOPURINOL 300 MG TAB PO SCH (08:23)
[2018-12-09] MEDS: FOLIC ACID 1 MG TAB PO SCH (08:23)
[2018-12-09] MEDS: APIXABAN 5 MG TAB (ELIQUIS) PO SCH ×2 (08:23→21:27)
[2018-12-09] MEDS: CARVedilol 12.5 MG TAB PO SCH ×2 (08:23→21:28)
[2018-12-09] MEDS: PANTOPRAZOLE 40MG INJ (PROTONIX) (C9113) IV SCH (08:24)
[2018-12-09] MEDS: THIAMINE HCL 200 MG/2 ML VIAL (J3411) IM SCH (08:24)
[2018-12-09] MEDS ORDERED: POTASSIUM CHLORIDE 10 MEQ SR TABLET PO ONE (09:00)
[2018-12-09] MEDS: SYMBICORT 160/4.5MCG INHALER 6GM INH SCH ×2 (09:00→20:12)
--- NOTE | 2018-12-09 09:38 | IPNPDOC ---
Subjective Date Seen The patient was seen on 12/09/18. Subjective Chief Complaint/HPI No complaints this morning. Cholecystomy drain now prodraining thinner material looks like bile with blood, Bps ok overnight, no fever or chills, No chest pain or sob , no diarrhea. Objective Physical Examination General Exam: Positive: Alert, Cooperative, No Acute Distress Eye Exam: Positive: PERRLA, Conjunctiva & lids normal, EOMI; Negative: Sclera icteric ENT Exam: Positive: Atraumatic, Mucous membr. moist/pink, Pharynx Normal Neck Exam: Positive: Supple; Negative: JVD, thyromegaly Chest Exam: Positive: Clear to auscultation, Diminished Heart Exam: Positive: Rate Normal, Regular Rhythm, Normal S1, Normal S2; Negative: Murmurs, Rubs Telemetry: Positive: No significant arrhythmia Abdomen Exam: Positive: BS Hyperactive, Tenderness (right upper quadrant at the site of the drain.), Other (has cholecystostomy drain in place, long midline scar, hugely obese abdomen.) Extremity Exam: Positive: Edema (trace edema); Negative: Clubbing, Cyanosis Assessment /Plan Assessment This is a 63-year-old obese male with pertinent past medical history of systolic congestive heart failure, restrictive cardiomyopathy, hypertension, COPD, atrial fibrillation on Eliquis, obstructive sleep apnea with noncompliance on CPAP, history of testicular cancer, and history of abdominal repair, who presented for the third time in the past month with diffuse abdominal pain and pressure. CT abdomen imaging in ED showed ruptured acute cholecystitis with liver involvement and left lower lobe focal consolidation. Low normal BPs No symptoms, no tachycardia. will hold the diuretics and relax fluid restriction to 3000ml. monitor. Acute ruptured cholecystitis with pericholecystic fluid/abscess and liver involvement as per 12/[address] s/p cholecystostomy drain placement on 12/05/18 Continue with Ertapenem Carb consistent diet. I anticipate another 2 to 3 days of iv antibiotics then discharge home with oral antibiotics with drain in place. To follow up with Dr Matthew for interval cholecystectomy in 4 to 6 weeks. will need further imaging as an outpatient prior to surgery to be arranged by Dr matthew. Healthcare-associated pneumonia (HCAP) Patient had left lower lobe small focal consolidation on 12/04 CT imaging Patient has been in the hospital 3 times in the past month counting this visit. Ertapenem Sepsis due to ruptured acute cholecystits and pneumonia. ertapenem 2 blood cultures negative till date. Drain fluid sent for culture and gram s tain, sputum negative. Acute exacerbation of COPD, likely secondary to HCAP now improved. continue spiriva, duonebs, steroids stopped. titrate patient's oxygen saturation levels to 88-92% Chronic respiratory failure with hypoxia continue oxygen supplementation. Systolic CHF with previous low EF History of cardiomyopathy. Echocardiogram 02/2018 showed ejection fraction of 50%, mildly dilated left ventricle, mildly dilated left atrium, dilated aortic root, elevated right-sided pressures. watch for fluid overload will restart diuretics as needed. strict monitoring of I&O with daily weights Diabetes mellitus A1c 6.6 Patient's home hypoglycemic medications were held Patient placed on insulin sliding scale Hypertension with hypertensive heart disease continue coreg, diuretics held Chronic alcohol abuse no signs of withdrawal CIWA protocol ordered with 2mg po ativan when score is 8 or greater pt on fall risk and seizure precautions continue thiamine. will resume folate when eating po. Obstructive sleep apnea, noncompliant with home CPAP Cpap noncompliant at home. Per pt, his sister is the only one who can bring his cpap in to hospital, but she is currently sick. Continuous pulse ox ordered [place] resolved due to poor oral intake due to abdominal pain and being on diuretics. Atrial fibrillation, on Eliquis continue coreg Patient's Eliquis held in anticipation of procedure. will resume when OK with surgery Gout Continue with patient's home allopurinol Morbid obesity BMI of 40 reports that a few months ago he was supposed to have a bariatric procedure but the bariatric surgeon had to abandon the case as he was not able to gain entry into the abdomen. He tried performing a laparoscopy and also made a small supraumbilical incision and was not able to enter the abdomen at all. 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 Eliquis on hold H/O Testicular cancer with orchiectomy and lymph node resection full exploratory laparotomy incision for periaortic lymph node dissection for prior history of testicular cancer in the 1970s. Incisional and ventral hernias developed hernias on the laparotomy site in 2017 had emergent laparoscopic repair of the hernias where he had some incarcerated omental tissue Also had inguinal hernia repair. History of nonsustained ventricular tachycardia (V-TACH). no issues at present. Fibronodular opacities in the lower lobes of the lungs bilaterally. The largest currently visible in the left lower lobe measuring 19 mm. DVT prophylaxis: Patient's home Eliquis medication was held. Teds and sequentials were ordered. Stress ulcer prophylaxis: 40 mg Protonix ordered Plan/VTE VTE Prophylaxis Ordered?: Yes VS, I&O, 24H, Fishbone Vital Signs/I&O Vital Signs Date Time Temp Pulse Resp B/P (MAP) Pulse Ox O2 Delivery O2 Flow Rate FiO2 12/09/18 08:23 69 117/69 12/09/18 06:00 97.9 19 93 12/08/18 22:41 2.0 12/06/18 06:00 Nasal Cannula I&O- Last 24 Hours up to 6 AM 12/09/18 05:59 Intake Total 2850 ml Output Total 3215 ml Balance -365 ml Laboratory Data 24H LABS Laboratory Tests 2 12/08/18 11:26: Bedside Glucose (Misc Panel) 137H 12/08/18 16:40: Bedside Glucose (Misc Panel) 122H 12/08/18 20:26: Bedside Glucose (Misc Panel) 88 12/09/18 05:53: Immature Granulocyte % (Auto) 2.3, White Blood Count 6.1, Red Blood Count 4.50, Hemoglobin 12.8L, Hematocrit 40.7L, Mean Corpuscular Volume 90.4, Mean Corpuscular Hemoglobin 28.4, Mean Corpuscular Hemoglobin Concent 31.4L, Red Cell Distribution Width 13.8, Platelet Count 212, Neutrophils (%) (Auto) 59.7, Lymphocytes (%) (Auto) 29.8, Monocytes (%) (Auto) 6.4H, Eosinophils (%) (Auto) 1.3, Basophils (%) (Auto) 0.5, Neutrophils # (Auto) 3.6, Lymphocytes # (Auto) 1.8, Monocytes # (Auto) 0.4, Eosinophils # (Auto) 0.1, Basophils # (Auto) 0.0, Nucleated Red Blood Cells % (auto) 0.0, Anion Gap 5L, Glomerular Filtration Rate > 60.0, Blood Urea Nitrogen 21H, Creatinine 1.01, Sodium Level 139, Potassium Level 3.2L, Chloride Level 103, Carbon Dioxide Level 31, Calcium Level 8.0L CBC/BMP Laboratory Tests 12/09/18 05:53 Red Blood Count 4.50, Mean Corpuscular Volume 90.4, Mean Corpuscular Hemoglobin 28.4, Mean Corpuscular Hemoglobin Concent 31.4 L, Red Cell Distribution Width 13.8, Neutrophils (%) (Auto) 59.7, Lymphocytes (%) (Auto) 29.8, Monocytes (%) (Auto) 6.4 H, Eosinophils (%) (Auto) 1.3, Basophils (%) (Auto) 0.5, Neutrophils # (Auto) 3.6, Lymphocytes # (Auto) 1.8, Monocytes # (Auto) 0.4, Eosinophils # (Auto) 0.1, Basophils # (Auto) 0.0, Calcium Level 8.0 L Microbiology Microbiology 12/05/18 Gram Stain - Final, Complete 12/05/18 Abscess Culture - Final, Complete Klebsiella Pneumoniae Escherichia Coli Enterococcus Faecalis 12/05/18 Anaerobic Culture - Final, Complete 12/05/18 Gram Stain - Final, Complete 12/05/18 Sputum Culture - Final, Complete 12/04/18 Blood Culture - Preliminary, Resulted No Growth after 72 hours. All specime... 12/04/18 Blood Culture - Preliminary, Resulted No Growth after 72 hours. All specime... LISE BROOKE MD Dec 09, 2018 09:38
--- NOTE | 2018-12-09 11:25 | IPNPDOC ---
Text Note Date of Service The patient was seen on 12/09/18. NOTE Patient reports he is doing well. He still reports occasional fullness with eating but denies any further vomiting, sometimes mildly nauseous. He is having multiple bowel movements daily. He has been afebrile. On examination he was laying on the bed, slightly appears mildly down today but acting appropriately. No scleral icterus Lungs are relatively clear to auscultation no wheezing Regular heart rate and rhythm Obese, rounded and protuberant abdomen but relatively nondistended though there is some mild fullness over the right upper quadrant area. He is percutaneous ch olecystostomy drain appearing more bilious looking. Drain sites covered it appears dry mildly tender on the right upper quadrant area Severe acute cholecystitis s/p percutaneous cholecystostomy tube placement (12/05/18) Morbid obesity COPD Continue broad spectrum abx while awaiting culture results from the cholecystostomy drain placement cultures show growth of Klebsiella and enterococcus and Escherichia coli. We will need to find the appropriate oral antibiotics for him. advance diet he is so far tolerating a diet actually does report fullness but no further vomiting. maybe dc home once stable on oral abx with the cholecystostomy tube interval cholecystectomy in roughly 4-6 weeks time May restart Eliquis. With patient's improvement, we can get out of bed to all the acute swelling has improved. May need some studies preoperatively to further define the degree of inflammation, damage to the gallbladder but I could do this as an outpatient with visits to the clinic. would follow along intermittently at this point and expect to see him in the clinic in 2 weeks post discharge. VS,Alen, I+O VS, Alen, I+O Laboratory Tests 12/09/18 05:53 Red Blood Count 4.50, Mean Corpuscular Volume 90.4, Mean Corpuscular Hemoglobin 28.4, Mean Corpuscular Hemoglobin Concent 31.4 L, Red Cell Distribution Width 13.8, Neutrophils (%) (Auto) 59.7, Lymphocytes (%) (Auto) 29.8, Monocytes (%) (Auto) 6.4 H, Eosinophils (%) (Auto) 1.3, Basophils (%) (Auto) 0.5, Neutrophils # (Auto) 3.6, Lymphocytes # (Auto) 1.8, Monocytes # (Auto) 0.4, Eosinophils # (Auto) 0.1, Basophils # (Auto) 0.0, Calcium Level 8.0 L Vital Signs Date Time Temp Pulse Resp B/P (MAP) Pulse Ox O2 Delivery O2 Flow Rate FiO2 12/09/18 08:23 69 117/69 12/09/18 08:00 2.0 12/09/18 06:00 97.9 19 93 12/06/18 06:00 Nasal Cannula I&O- Last 24 Hours up to 6 AM 12/09/18 06:00 Intake Total 2850 ml Output Total 2855 ml Balance -5 ml DARSHAN RIBEIRO MD Dec 09, 2018 11:25
[2018-12-09 14:00] VITALS: BP 107/56
[2018-12-09 20:00] VITALS: BP 99/53
[2018-12-09] MEDS: ERTAPENEM SODIUM 1 GM in NS MINI-BAG PLUS 50 ML IV SCH (21:27)
[2018-12-10] MEDS: PERCOCET 5MG/325MG TAB PO PRN ×2 (00:02→21:32)
[2018-12-10] MEDS: IPRATROPIUM 0.5MG/ALBUTEROL 2.5MG INH SOL UD 3ML (DUONEB)(J7620) NEB SCH ×4 (01:52→20:00)
[2018-12-10] MEDS: SLF 3 ML SYR IV SCH ×3 (05:40→21:34)
[2018-12-10 06:00] VITALS: BP 96/60
[2018-12-10 06:22] LABS: BASO % 0.7 % (0.0-1.0); EOS # 0.1 10^3/uL (0.0-0.5); EOS % 1.6 % (0.0-3.0); HEMATOCRIT 39.8 % (42.0-52.0); HEMOGLOBIN 12.7 g/dl (13.5-17.5); LYMPH # 1.9 10^3/uL (1.5-5.0); LYMPH % 30.3 % (24.0-44.0); MEAN CORPUSCULAR HEMOGLOBIN 29.3 pg (27.0-33.0); MEAN CORPUSCULAR HGB CONC 31.9 g/dl (32.0-36.5); MEAN CORPUSCULAR VOLUME 91.9 fl (80.0-96.0); MONO # 0.3 10^3/uL (0.0-0.8); MONO % 5.4 % (0.0-5.0); NEUTROPHILS # 3.7 10^3/uL (1.5-8.5); NEUTROPHILS % 60.2 % (36.0-66.0); PLATELET COUNT, AUTOMATED 202 10^3/uL (150-450); RED BLOOD COUNT 4.33 10^6/uL (4.30-6.10); WHITE BLOOD COUNT 6.1 10^3/uL (4.0-10.0)
[2018-12-10 06:49] LABS: BLOOD UREA NITROGEN 16 MG/DL (7-18); CARBON DIOXIDE LEVEL 28 MEQ/L (21-32); CHLORIDE LEVEL 105 MEQ/L (98-107); CREATININE FOR GFR 0.77 MG/DL (0.70-1.30); GLOMERULAR FILTRATION RATE > 60.0 (>49); GLUCOSE, FASTING 87 MG/DL (70-100); POTASSIUM SERUM 3.5 MEQ/L (3.5-5.1); SODIUM LEVEL 139 MEQ/L (136-145)
[2018-12-10] MEDS: HumaLOG INSULIN (NovoLOG) PER UNIT SC SCH ×4 (07:30→20:52)
[2018-12-10] MEDS: TIOTROPIUM INHALER/CAPSULE (SPIRIVA) INH SCH (07:32)
[2018-12-10] MEDS: SYMBICORT 160/4.5MCG INHALER 6GM INH SCH ×2 (07:33→20:06)
[2018-12-10] MEDS: ATORVASTATIN 20 MG TAB PO SCH (08:19)
[2018-12-10] MEDS: CARVedilol 12.5 MG TAB PO SCH ×2 (08:20→20:22)
[2018-12-10] MEDS: APIXABAN 5 MG TAB (ELIQUIS) PO SCH ×2 (08:20→20:22)
[2018-12-10] MEDS: THIAMINE HCL 200 MG/2 ML VIAL (J3411) IM SCH (08:20)
[2018-12-10] MEDS: PANTOPRAZOLE 40MG INJ (PROTONIX) (C9113) IV SCH (08:20)
[2018-12-10] MEDS: FOLIC ACID 1 MG TAB PO SCH (08:20)
[2018-12-10] MEDS: SPIRONOLACTONE 25 MG TAB PO SCH ×2 (09:49→17:00)
[2018-12-10] MEDS: TORSEMIDE 20 MG TAB PO SCH (09:50)
[2018-12-10] MEDS: ALLOPURINOL 300 MG TAB PO SCH (09:50)
[2018-12-10] MEDS: AcetaZOLAMIDE 250 MG TAB PO SCH ×2 (13:12→20:22)
[2018-12-10 14:00] VITALS: BP 103/64
[2018-12-10] MEDS: ERTAPENEM SODIUM 1 GM in NS MINI-BAG PLUS 50 ML IV SCH (21:33)
[2018-12-10 22:00] VITALS: BP 92/53
--- NOTE | 2018-12-10 22:22 | IPNPDOC ---
Subjective Date Seen The patient was seen on 12/10/18. Subjective Chief Complaint/HPI Continues to have some soreness on the right side of the abdomen otherwise is pain free. Bp tends to fluctuate. No fever or chills, no chest pain or sob. No diarrhea. Objective Physical Examination General Exam: Positive: Alert, Cooperative, No Acute Distress Eye Exam: Positive: PERRLA, Conjunctiva & lids normal, EOMI; Negative: Sclera icteric ENT Exam: Positive: Atraumatic, Mucous membr. moist/pink, Pharynx Normal Neck Exam: Positive: Supple; Negative: JVD, thyromegaly Chest Exam: Positive: Clear to auscultation, Diminished Heart Exam: Positive: Rate Normal, Regular Rhythm, Normal S1, Normal S2; Negative: Murmurs, Rubs Telemetry: Positive: No significant arrhythmia Abdomen Exam: Positive: BS Hyperactive, Tenderness (right upper quadrant at the site of the drain.), Other (has cholecystostomy drain in place, long midline scar, hugely obese abdomen.) Extremity Exam: Positive: Edema (trace edema); Negative: Clubbing, Cyanosis Assessment /Plan Assessment This is a 63-year-old obese male with pertinent past medical history of systolic congestive heart failure, restrictive cardiomyopathy, hypertension, COPD, atrial fibrillation on Eliquis, obstructive sleep apnea with noncompliance on CPAP, history of testicular cancer, and history of abdominal repair, who presented for the third time in the past month with diffuse abdominal pain and pressure. CT abdomen imaging in ED showed ruptured acute cholecystitis with liver involvement and left lower lobe focal consolidation. Low normal BPs No symptoms, no tachycardia. will hold the diuretics and relax fluid restriction to 3000ml. monitor. Acute ruptured cholecystitis with pericholecystic fluid/abscess and liver involvement as per 12/[address] s/p cholecystostomy drain placement on 12/05/18 Carb consistent diet. cholecystostomy culture with ecoli, klebsiella and enterococcus. Continue with Ertapenem and start vancomycin. will possibly discharge with ampicillin and cefdinir in 1 to 2 days. To follow up with Dr Matthew for interval cholecystectomy in 4 to 6 weeks. will need further imaging as an outpatient prior to surgery to be arranged by Dr matthew. Healthcare-associated pneumonia (HCAP) Patient had left lower lobe small focal consolidation on 12/04 CT imaging Patient has been in the hospital 3 times in the past month counting this visit. Ertapenem Sepsis due to ruptured acute cholecystits and pneumonia. ertapenem 2 blood cultures negative till date. Drain fluid sent for culture and gram stain, sputum negative. Acute exacerbation of COPD, likely secondary to HCAP now improved. continue spiriva, duonebs, steroids stopped. titrate patient's oxygen saturation levels to 88-92% Chronic respiratory failure with hypoxia continue oxygen supplementation. Systolic CHF with previous low EF History of cardiomyopathy. Echocardiogram 02/2018 showed ejection fraction of 50%, mildly dilated left ventricle, mildly dilated left atrium, dilated aortic root, elevated right-sided pressures. watch for fluid overload will restart diuretics as needed. strict monitoring of I&O with daily weights Diabetes mellitus A1c 6.6 Patient's home hypoglycemic medications were held Patient placed on insulin sliding scale Hypertension with hypertensive heart disease continue coreg, diuretics held Chronic alcohol abuse no signs of withdrawal CIWA protocol ordered with 2mg po ativan when score is 8 or greater pt on fall risk and seizure precautions continue thiamine. will resume folate when eating po. Obstructive sleep apnea, noncompliant with home CPAP Cpap noncompliant at home. Per pt, his sister is the only one who can bring his cpap in to hospital, but she is currently sick. Continuous pulse ox ordered [place] resolved due to poor oral intake due to abdominal pain and being on diuretics. Atrial fibrillation, on Eliquis continue coreg Patient's Eliquis held in anticipation of procedure. will resume when OK with surgery Gout Continue with patient's home allopurinol Morbid obesity BMI of 40 reports that a few months ago he was supposed to have a bariatric procedure but the bariatric surgeon had to abandon the case as he was not able to gain entry into the abdomen. He tried performing a laparoscopy and also made a small supraumbilical incision and was not able to enter the abdomen at all. 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 Eliquis on hold H/O Testicular cancer with orchiectomy and lymph node resection full exploratory laparotomy incision for periaortic lymph node dissection for prior history of testicular cancer in the 1970s. Incisional and ventral hernias developed hernias on the laparotomy site in 2017 had emergent laparoscopic repair of the hernias where he had some incarcerated omental tissue Also had inguinal hernia repair. History of nonsustained ventricular tachycardia (V-TACH). no issues at present. Fibronodular opacities in the lower lobes of the lungs bilaterally. The largest currently visible in the left lower lobe measuring 19 mm. DVT prophylaxis: Patient's home Eliquis medication was held. Teds and sequentials were ordered. Stress ulcer prophylaxis: 40 mg Protonix ordered Plan/VTE VTE Prophylaxis Ordered?: Yes VS, I&O, 24H, Fishbone Vital Signs/I&O Vital Signs Date Time Temp Pulse Resp B/P (MAP) Pulse Ox O2 Delivery O2 Flow Rate FiO2 12/10/18 21:32 18 2.0 12/10/18 20:22 60 88/64 12/10/18 14:00 98.2 98 12/06/18 06:00 Nasal Cannula I&O- Last 24 Hours up to 6 AM 12/10/18 06:00 Intake Total 2110 ml Output Total 1175 ml Balance 935 ml Laboratory Data 24H LABS Laboratory Tests 2 12/10/18 05:50: Immature Granulocyte % (Auto) 1.8, White Blood Count 6.1, Red Blood Count 4.33, Hemoglobin 12.7L, Hematocrit 39.8L, Mean Corpuscular Volume 91.9, Mean Corpuscular Hemoglobin 29.3, Mean Corpuscular Hemoglobin Concent 31.9L, Red Cell Distribution Width 13.7, Platelet Count 202, Neutrophils (%) (Auto) 60.2, Lymphocytes (%) (Auto) 30.3, Monocytes (%) (Auto) 5.4H, Eosinophils (%) (Auto) 1.6, Basophils (%) (Auto) 0.7, Neutrophils # (Auto) 3.7, Lymphocytes # (Auto) 1.9, Monocytes # (Auto) 0.3, Eosinophils # (Auto) 0.1, Basophils # (Auto) 0.0, Nucleated Red Blood Cells % (auto) 0.0, Anion Gap 6L, Glomerular Filtration Rate > 60.0, Blood Urea Nitrogen 16, Creatinine 0.77, Sodium Level 139, Potassium Level 3.5, Chloride Level 105, Carbon Dioxide Level 28, Calcium Level 8.0L 12/10/18 11:39: Bedside Glucose (Misc Panel) 85 12/10/18 16:38: Bedside Glucose (Misc Panel) 91 12/10/18 20:40: Bedside Glucose (Misc Panel) 120H CBC/BMP Laboratory Tests 12/10/18 05:50 Red Blood Count 4.33, Mean Corpuscular Volume 91.9, Mean Corpuscular Hemoglobin 29.3, Mean Corpuscular Hemoglobin Concent 31.9 L, Red Cell Distribution Width 13.7, Neutrophils (%) (Auto) 60.2, Lymphocytes (%) (Auto) 30.3, Monocytes (%) (Auto) 5.4 H, Eosinophils (%) (Auto) 1.6, Basophils (%) (Auto) 0.7, Neutrophils # (Auto) 3.7, Lymphocytes # (Auto) 1.9, Monocytes # (Auto) 0.3, Eosinophils # (Auto) 0.1, Basophils # (Auto) 0.0, Calcium Level 8.0 L Microbiology Microbiology 12/05/18 Gram Stain - Final, Complete 12/05/18 Abscess Culture - Final, Complete Klebsiella Pneumoniae Escherichia Coli Enterococcus Faecalis 12/05/18 Anaerobic Culture - Final, Complete 12/05/18 Gram Stain - Final, Complete 12/05/18 Sputum Culture - Final, Complete 12/04/18 Blood Culture - Final, Complete NO GROWTH AFTER 5 DAYS 12/04/18 Blood Culture - Final, Complete NO GROWTH AFTER 5 DAYS LISE BROOKE MD Dec 10, 2018 22:22
[2018-12-10] MEDS ORDERED: VANCOMYCIN HCL 1,000 MG, VIAL MATE ADAPTER 1 EACH in D5W 250 ML IV ONE (22:30)
--- NOTE | 2018-12-10 23:56 | PHACANCOPD ---
PHARMACY VANCOMYCIN DOSING Pt Demographics Demographics Patient Age:63 , Weight:130.300 , Gender: male Adjusted Body Weight Date: 12/10/18, Adjusted Body Weight: Kg Events Past 24 Hours Events Past 24 Hours: NO: Dialysis, Diuretic Therapy, Change in CrCl, Fever, Elevation in WBC, Pending Diagnostics, Pending Procedures, Other Vancomycin Vancomycin Load Y/N: Yes Load Dose Date Time Vancomycin Load Dose: 2000mg Date: 12-10 Time: 2300 Vancomycin Dose Date: 12/10/18. Current Vancomycin Dose: [1000mg q6h] Intermittent Dosing?: No Labs Labs Item Value Date Time White Blood Count 6.1 10^3/uL 12/10/18 0550 Glomerular Filtration Rate > 60.0 12/10/18 0550 Creatinine 0.77 MG/DL 12/10/18 0550 Blood Urea Nitrogen 16 MG/DL 12/10/18 0550 Vital Signs Label Value Date Time Patient Temperature 98.2 degrees F 12/10/18 1400 Temperature Source Oral 12/10/18 1400 Micro Microbiology 12/05/18 Gram Stain - Final, Complete 12/05/18 Abscess Culture - Final, Complete Klebsiella Pneumoniae Escherichia Coli Enterococcus Faecalis 12/05/18 Anaerobic Culture - Final, Complete 12/05/18 Gram Stain - Final, Complete 12/05/18 Sputum Culture - Final, Complete 12/04/18 Blood Culture - Final, Complete NO GROWTH AFTER 5 DAYS 12/04/18 Blood Culture - Final, Complete NO GROWTH AFTER 5 DAYS Creatinine Clearance Date:12/10/18. Creatinine Clearance: [~100]. Pending Labs Trough 10-14 @ 1700 Assessment and Plan Maintaining Current Dose?: Yes Reason for dose change: No Dose Change Pharmacist Note Pharmacist Note Date: 12/10/18. Pharmacist note:Will monitor and make adjustments as needed. [facility] Dec 10, 2018 23:56
[2018-12-11] MEDS: VANCOMYCIN HCL 1,000 MG, VIAL MATE ADAPTER 1 EACH in D5W 250 ML IV SCH ×2 (00:56→05:44)
[2018-12-11] MEDS: IPRATROPIUM 0.5MG/ALBUTEROL 2.5MG INH SOL UD 3ML (DUONEB)(J7620) NEB SCH ×5 (01:00→23:49)
[2018-12-11 02:00] VITALS: BP 139/79
[2018-12-11] MEDS: SLF 3 ML SYR IV SCH ×3 (05:44→22:07)
[2018-12-11 06:00] VITALS: BP 136/73
[2018-12-11 06:13] LABS: BASO % 0.5 % (0.0-1.0); EOS # 0.1 10^3/uL (0.0-0.5); EOS % 2.1 % (0.0-3.0); HEMATOCRIT 39.3 % (42.0-52.0); HEMOGLOBIN 12.4 g/dl (13.5-17.5); LYMPH # 1.6 10^3/uL (1.5-5.0); LYMPH % 27.7 % (24.0-44.0); MEAN CORPUSCULAR HEMOGLOBIN 28.8 pg (27.0-33.0); MEAN CORPUSCULAR HGB CONC 31.6 g/dl (32.0-36.5); MEAN CORPUSCULAR VOLUME 91.2 fl (80.0-96.0); MONO # 0.4 10^3/uL (0.0-0.8); NEUTROPHILS # 3.6 10^3/uL (1.5-8.5); PLATELET COUNT, AUTOMATED 190 10^3/uL (150-450); RED BLOOD COUNT 4.31 10^6/uL (4.30-6.10); WHITE BLOOD COUNT 5.8 10^3/uL (4.0-10.0)
[2018-12-11 06:25] LABS: BLOOD UREA NITROGEN 19 MG/DL (7-18); CARBON DIOXIDE LEVEL 29 MEQ/L (21-32); CHLORIDE LEVEL 103 MEQ/L (98-107); CREATININE FOR GFR 1.04 MG/DL (0.70-1.30); GLOMERULAR FILTRATION RATE > 60.0 (>49); GLUCOSE, FASTING 91 MG/DL (70-100); POTASSIUM SERUM 3.5 MEQ/L (3.5-5.1); SODIUM LEVEL 137 MEQ/L (136-145)
[2018-12-11] MEDS: HumaLOG INSULIN (NovoLOG) PER UNIT SC SCH ×4 (07:30→21:00)
[2018-12-11] MEDS: TIOTROPIUM INHALER/CAPSULE (SPIRIVA) INH SCH (08:31)
[2018-12-11] MEDS: SYMBICORT 160/4.5MCG INHALER 6GM INH SCH ×2 (08:32→19:39)
[2018-12-11] MEDS: PANTOPRAZOLE 40MG INJ (PROTONIX) (C9113) IV SCH (09:42)
[2018-12-11] MEDS: TORSEMIDE 20 MG TAB PO SCH (09:43)
[2018-12-11] MEDS: APIXABAN 5 MG TAB (ELIQUIS) PO SCH ×2 (09:43→20:31)
[2018-12-11] MEDS: FOLIC ACID 1 MG TAB PO SCH (09:43)
[2018-12-11] MEDS: AcetaZOLAMIDE 250 MG TAB PO SCH ×2 (09:43→20:31)
[2018-12-11] MEDS: THIAMINE HCL 200 MG/2 ML VIAL (J3411) IM SCH (09:43)
[2018-12-11] MEDS: ATORVASTATIN 20 MG TAB PO SCH (09:45)
[2018-12-11] MEDS: CARVedilol 12.5 MG TAB PO SCH ×2 (09:45→20:31)
[2018-12-11] MEDS: ALLOPURINOL 300 MG TAB PO SCH (09:46)
[2018-12-11] MEDS: SPIRONOLACTONE 25 MG TAB PO SCH ×2 (09:46→16:51)
[2018-12-11 10:00] VITALS: BP 132/82
[2018-12-11] MEDS: AMPICILLIN SOD 1 GM in D5W 50 ML IV SCH ×2 (13:03→18:23)
[2018-12-11 14:00] VITALS: BP 118/77
--- NOTE | 2018-12-11 17:30 | IPNPDOC ---
Subjective Date Seen The patient was seen on 12/11/18. Subjective Chief Complaint/HPI No new complaints today . Cholecystostomy drain draining well. clear bile now. No fever or chills, no chest pain or SOB , no nausea or vomiting tolerating oral food. Objective Physical Examination General Exam: Positive: Alert, Cooperative, No Acute Distress Eye Exam: Positive: PERRLA, Conjunctiva & lids normal, EOMI; Negative: Sclera icteric ENT Exam: Positive: Atraumatic, Mucous membr. moist/pink, Pharynx Normal Neck Exam: Positive: Supple; Negative: JVD, thyromegaly Chest Exam: Positive: Clear to auscultation, Diminished Heart Exam: Positive: Rate Normal, Regular Rhythm, Normal S1, Normal S2; Negative: Murmurs, Rubs Telemetry: Positive: No significant arrhythmia Abdomen Exam: Positive: BS Hyperactive, Tenderness (right upper quadrant at the site of the drain.), Other (has cholecystostomy drain in place, long midline scar, hugely obese abdomen.) Extremity Exam: Positive: Edema (trace edema); Negative: Clubbing, Cyanosis Assessment /Plan Assessment This is a 63-year-old obese male with pertinent past medical history of systolic congestive heart failure, restrictive cardiomyopathy, hypertension, COPD, atrial fibrillation on Eliquis, obstructive sleep apnea with noncompliance on CPAP, history of testicular cancer, and history of abdominal repair, who presented for the third time in the past month with diffuse abdominal pain and pressure. CT abdomen imaging in ED showed ruptured acute cholecystitis with liver involvement and left lower lobe focal consolidation. Low normal BPs No symptoms, no tachycardia. monitor. Acute ruptured cholecystitis with pericholecystic fluid/abscess and liver involvement as per 12/[address] s/p cholecystostomy drain placement on 12/05/18 Carb consistent diet. cholecystostomy culture with ecoli, klebsiella and enterococcus. Continue with Ertapenem and ampicillin will possibly discharge with ampicillin and cefdinir in 1 to 2 days. To follow up with Dr Salvador for interval cholecystectomy in 4 to 6 weeks. will need further imaging as an outpatient prior to surgery to be arranged by Dr blake jackson. Healthcare-associated pneumonia (HCAP) Patient had left lower lobe small focal consolidation on 12/04 CT imaging Patient has been in the hospital 3 times in the past month counting this visit. Ertapenem Sepsis due to ruptured acute cholecystits and pneumonia. ertapenem 2 blood cultures negative till date. Drain fluid sent for culture and gram stain, sputum negative. Acute exacerbation of COPD, likely secondary to HCAP now improved. continue spiriva, duonebs, steroids stopped. titrate patient's oxygen saturation levels to 88-92% Chronic respiratory failure with hypoxia continue oxygen supplementation. Systolic CHF with previous low EF History of cardiomyopathy. Echocardiogram 02/2018 showed ejection fraction of 50%, mildly dilated left ventricle, mildly dilated left atrium, dilated aortic root, elevated right-sided pressures. watch for fluid overload will restart diuretics as needed. strict monitoring of I&O with daily weights Diabetes mellitus A1c 6.6 Patient's home hypoglycemic medications were held Patient placed on insulin sliding scale Hypertension with hypertensive heart disease continue coreg, diuretics held Chronic alcohol abuse no signs of withdrawal CIWA protocol ordered with 2mg po ativan when score is 8 or greater pt on fall risk and seizure precautions continue thiamine. will resume folate when eating po. Obstructive sleep apnea, noncompliant with home CPAP Cpap noncompliant at home. Per pt, his sister is the only one who can bring his cpap in to hospital, but she is currently sick. Continuous pulse ox ordered [place] resolved due to poor oral intake due to abdominal pain and being on diuretics. Atrial fibrillation, on Eliquis continue coreg Patient's Eliquis held in anticipation of procedure. will resume when OK with surgery Gout Continue with patient's home allopurinol Morbid obesity BMI of 40 reports that a few months ago he was supposed to have a bariatric procedure but the bariatric surgeon had to abandon the case as he was not able to gain entry into the abdomen. He tried performing a laparoscopy and also made a small supraumbilical incision and was not able to enter the abdomen at all. 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 Eliquis on hold H/O Testicular cancer with orchiectomy and lymph node resection full exploratory laparotomy incision for periaortic lymph node dissection for prior history of testicular cancer in the 1970s. Incisional and ventral hernias developed hernias on the laparotomy site in 2017 had emergent laparoscopic repair of the hernias where he had some incarcerated omental tissue Also had inguinal hernia repair. History of nonsustained ventricular tachycardia (V-TACH). no issues at present. Fibronodular opacities in the lower lobes of the lungs bilaterally. The largest currently visible in the left lower lobe measuring 19 mm. DVT prophylaxis: Patient's home Eliquis medication was held. Teds and sequentials were ordered. Stress ulcer prophylaxis: 40 mg Protonix ordered Plan/VTE VTE Prophylaxis Ordered?: Yes VS, I&O, 24H, Fishbone Vital Signs/I&O Vital Signs Date Time Temp Pulse Resp B/P (MAP) Pulse Ox O2 Delivery O2 Flow Rate FiO2 12/11/18 14:00 97.9 86 18 118/77 (91) 96 2.0 12/06/18 06:00 Nasal Cannula I&O- Last 24 Hours up to 6 AM 12/11/18 06:00 Intake Total 3210 ml Output Total 3715 ml Balance -505 ml Laboratory Data 24H LABS Laboratory Tests 2 12/10/18 20:40: Bedside Glucose (Misc Panel) 120H 12/11/18 05:39: Immature Granulocyte % (Auto) 1.7, White Blood Count 5.8, Red Blood Count 4.31, Hemoglobin 12.4L, Hematocrit 39.3L, Mean Corpuscular Volume 91.2, Mean Corpuscular Hemoglobin 28.8, Mean Corpuscular Hemoglobin Concent 31.6L, Red Cell Distribution Width 13.8, Platelet Count 190, Neutrophils (%) (Auto) 61.0, Lymphocytes (%) (Auto) 27.7, Monocytes (%) (Auto) 7.0H, Eosinophils (%) (Auto) 2.1, Basophils (%) (Auto) 0.5, Neutrophils # (Auto) 3.6, Lymphocytes # (Auto) 1.6, Monocytes # (Auto) 0.4, Eosinophils # (Auto) 0.1, Basophils # (Auto) 0.0, Nucleated Red Blood Cells % (auto) 0.0, Anion Gap 5L, Glomerular Filtration Rate > 60.0, Blood Urea Nitrogen 19H, Creatinine 1.04, Sodium Level 137, Potassium Level 3.5, Chloride Level 103, Carbon Dioxide Level 29, Calcium Level 8.0L 12/11/18 10:55: Vancomycin Level Trough 19.7 12/11/18 11:44: Bedside Glucose (Misc Panel) 104 12/11/18 16:36: Bedside Glucose (Misc Panel) 110 CBC/BMP Laboratory Tests 12/11/18 05:39 Red Blood Count 4.31, Mean Corpuscular Volume 91.2, Mean Corpuscular Hemoglobin 28.8, Mean Corpuscular Hemoglobin Concent 31.6 L, Red Cell Distribution Width 13.8, Neutrophils (%) (Auto) 61.0, Lymphocytes (%) (Auto) 27.7, Monocytes (%) (Auto) 7.0 H, Eosinophils (%) (Auto) 2.1, Basophils (%) (Auto) 0.5, Neutrophils # (Auto) 3.6, Lymphocytes # (Auto) 1.6, Monocytes # (Auto) 0.4, Eosinophils # (Auto) 0.1, Basophils # (Auto) 0.0, Calcium Level 8.0 L Microbiology Microbiology 12/05/18 Gram Stain - Final, Complete 12/05/18 Abscess Culture - Final, Complete Klebsiella Pneumoniae Escherichia Coli Enterococcus Faecalis 12/05/18 Anaerobic Culture - Final, Complete 12/05/18 Gram Stain - Final, Complete 12/05/18 Sputum Culture - Final, Complete 12/04/18 Blood Culture - Final, Complete NO GROWTH AFTER 5 DAYS 12/04/18 Blood Culture - Final, Complete NO GROWTH AFTER 5 DAYS LISE BROOKE MD Dec 11, 2018 17:30
[2018-12-11 18:00] VITALS: BP 120/75
[2018-12-11 22:00] VITALS: BP 109/56
[2018-12-11] MEDS: ERTAPENEM SODIUM 1 GM in NS MINI-BAG PLUS 50 ML IV SCH (22:07)
[2018-12-11] MEDS: PERCOCET 5MG/325MG TAB PO PRN (22:08)
[2018-12-12] MEDS: AMPICILLIN SOD 1 GM in D5W 50 ML IV SCH ×4 (01:06→18:00)
[2018-12-12 02:00] VITALS: BP 137/75
[2018-12-12 06:00] VITALS: BP 118/58
[2018-12-12] MEDS: SLF 3 ML SYR IV SCH ×3 (06:04→22:11)
[2018-12-12 06:30] LABS: BASO % 0.6 % (0.0-1.0); EOS # 0.1 10^3/uL (0.0-0.5); EOS % 2.1 % (0.0-3.0); HEMATOCRIT 40.2 % (42.0-52.0); HEMOGLOBIN 12.6 g/dl (13.5-17.5); LYMPH # 1.5 10^3/uL (1.5-5.0); LYMPH % 32.3 % (24.0-44.0); MEAN CORPUSCULAR HEMOGLOBIN 28.6 pg (27.0-33.0); MEAN CORPUSCULAR HGB CONC 31.3 g/dl (32.0-36.5); MEAN CORPUSCULAR VOLUME 91.2 fl (80.0-96.0); MONO # 0.3 10^3/uL (0.0-0.8); MONO % 7.2 % (0.0-5.0); NEUTROPHILS # 2.6 10^3/uL (1.5-8.5); NEUTROPHILS % 55.9 % (36.0-66.0); PLATELET COUNT, AUTOMATED 173 10^3/uL (150-450); RED BLOOD COUNT 4.41 10^6/uL (4.30-6.10); WHITE BLOOD COUNT 4.7 10^3/uL (4.0-10.0)
[2018-12-12 06:57] LABS: BLOOD UREA NITROGEN 18 MG/DL (7-18); CALCIUM LEVEL 8.1 MG/DL (8.8-10.2); CARBON DIOXIDE LEVEL 28 MEQ/L (21-32); CHLORIDE LEVEL 105 MEQ/L (98-107); CREATININE FOR GFR 0.93 MG/DL (0.70-1.30); GLOMERULAR FILTRATION RATE > 60.0 (>49); GLUCOSE, FASTING 91 MG/DL (70-100); POTASSIUM SERUM 3.5 MEQ/L (3.5-5.1); SODIUM LEVEL 137 MEQ/L (136-145)
[2018-12-12] MEDS: HumaLOG INSULIN (NovoLOG) PER UNIT SC SCH ×4 (07:18→21:00)
[2018-12-12] MEDS: SYMBICORT 160/4.5MCG INHALER 6GM INH SCH ×2 (07:30→18:16)
[2018-12-12] MEDS: TIOTROPIUM INHALER/CAPSULE (SPIRIVA) INH SCH (07:30)
[2018-12-12] MEDS: IPRATROPIUM 0.5MG/ALBUTEROL 2.5MG INH SOL UD 3ML (DUONEB)(J7620) NEB SCH ×3 (07:31→18:15)
[2018-12-12] MEDS: PANTOPRAZOLE 40MG INJ (PROTONIX) (C9113) IV SCH (08:35)
[2018-12-12] MEDS: AcetaZOLAMIDE 250 MG TAB PO SCH ×2 (08:35→22:10)
[2018-12-12] MEDS: TORSEMIDE 20 MG TAB PO SCH (08:35)
[2018-12-12] MEDS: THIAMINE HCL 200 MG/2 ML VIAL (J3411) IM SCH (08:35)
[2018-12-12] MEDS: APIXABAN 5 MG TAB (ELIQUIS) PO SCH ×2 (08:35→22:11)
[2018-12-12] MEDS: FOLIC ACID 1 MG TAB PO SCH (08:36)
[2018-12-12] MEDS: SPIRONOLACTONE 25 MG TAB PO SCH ×2 (08:36→16:21)
[2018-12-12] MEDS: CARVedilol 12.5 MG TAB PO SCH ×2 (08:36→22:14)
[2018-12-12] MEDS: ALLOPURINOL 300 MG TAB PO SCH (08:36)
[2018-12-12] MEDS: ATORVASTATIN 20 MG TAB PO SCH (08:37)
[2018-12-12 10:00] VITALS: BP 100/68
[2018-12-12 14:00] VITALS: BP 114/73
--- NOTE | 2018-12-12 17:03 | IPN ---
DATE: 12/12/2018 The patient still complains of tenderness in the right upper quadrant, continues to have bilious drainage with output of 140 overnight. Afebrile. No complaints of chills. Tolerating his diet without nausea or vomiting. Temperature 98.2, pulse 69, respiratory rate 18, blood pressure 114/73, 97% on 2 liters nasal cannula. GENERAL: The patient is awake, alert, oriented. Answering questions appropriately. No jaundice. No icterus. No jugular venous distention (JVD). No thyromegaly. Thick neck. LUNGS: Clear to auscultation. No wheezing, rales or rhonchi. Air entry is equal bilaterally. HEART: S1, S2. Sinus rhythm. ABDOMEN: Obese, soft. Tender in the right upper quadrant. Cholecystotomy drain is noted. No rebound. No guarding. No hepatosplenomegaly. EXTREMITIES: Trace edema. LABORATORY DATA: White count 4.7, hemoglobin 12, hematocrit 40, platelet count 173. Sodium 137, potassium 3.5, chloride 104, bicarbonate 28, BUN 18, creatinine 0.93, glucose of 91. Abscess culture showed Klebsiella, Escherichia (E) coli , Enterococcus faecalis sensitive to ceftriaxone and Cipro. CURRENT MEDICATIONS: - ampicillin - ertapenem - Eliquis - MiraLAX - Humalog insulin - Symbicort - Lispro - Percocet - Protonix - thiamine - folic acid - allopurinol - Lipitor - spironolactone - torsemide - Zofran - Spiriva - DuoNeb - Proventil - Diamox - Coreg - hyperglycemic protocol ASSESSMENT AND PLAN: 63-year-old male, obese with history of chronic obstructive pulmonary disease (COPD), on chronic Eliquis, congestive heart failure (CHF), systolic dysfunction with reduced ejection fraction, obstructive sleep apnea, noncompliant with continuous positive airway pressure (CPAP), testicular cancer, abdominal repair, who presented with a ruptured cholecystitis with abscess, status post cholecystostomy drainage placement on 12/05/2018. Currently on ertapenem and ampicillin, follow with Dr. Salvador as outpatient. Defer to surgery regarding drainage management. Left lower lobe healthcare associated pneumonia. Currently on ertapenem. Chronic obstructive pulmonary disease (COPD) exacerbation, status post steroids. Currently on Spiriva and DuoNeb. Saturation goal of 88 to 92% oxygen saturation. Systolic heart failure. The patient remains in net negative balance on torsemide 40 mg daily. No signs of acute fluid overload. Obesity, Body Mass Index (BMI) of 37 with obstructive sleep apnea complicating his care. Noncompliant with CPAP. Gout. On home allopurinol. History of deep vein thrombosis (DVT) and pulmonary embolus with IVC filter. Resume back on his Eliquis 5 mg twice a day. History of alcohol abuse. On B12, folic acid. Dyslipidemia. On chronic Lipitor. MTDD
[2018-12-12 18:00] VITALS: BP 111/72
[2018-12-12 22:00] VITALS: BP 105/64
[2018-12-12] MEDS: ERTAPENEM SODIUM 1 GM in NS MINI-BAG PLUS 50 ML IV SCH (22:11)
[2018-12-13] MEDS: AMPICILLIN SOD 1 GM in D5W 50 ML IV SCH ×3 (01:38→13:00)
[2018-12-13 02:00] VITALS: BP 104/54
[2018-12-13] MEDS: IPRATROPIUM 0.5MG/ALBUTEROL 2.5MG INH SOL UD 3ML (DUONEB)(J7620) NEB SCH ×3 (02:00→13:40)
[2018-12-13] MEDS: SLF 3 ML SYR IV SCH ×2 (05:51→14:00)
[2018-12-13 06:00] VITALS: BP 106/62
[2018-12-13] MEDS: HumaLOG INSULIN (NovoLOG) PER UNIT SC SCH ×2 (07:30→12:45)
[2018-12-13] MEDS ORDERED: CIPR-249 PO (07:49)
[2018-12-13] MEDS ORDERED: AUGM875T28 PO (07:49)
[2018-12-13] MEDS: SYMBICORT 160/4.5MCG INHALER 6GM INH SCH (07:55)
[2018-12-13] MEDS: TIOTROPIUM INHALER/CAPSULE (SPIRIVA) INH SCH (07:55)
[2018-12-13 08:31] VITALS: BP 109/75
[2018-12-13] MEDS: ATORVASTATIN 20 MG TAB PO SCH (08:31)
[2018-12-13] MEDS: AcetaZOLAMIDE 250 MG TAB PO SCH (08:31)
[2018-12-13] MEDS: TORSEMIDE 20 MG TAB PO SCH (08:31)
[2018-12-13] MEDS: CARVedilol 12.5 MG TAB PO SCH (08:31)
[2018-12-13] MEDS: FOLIC ACID 1 MG TAB PO SCH (08:31)
[2018-12-13] MEDS: APIXABAN 5 MG TAB (ELIQUIS) PO SCH (08:32)
[2018-12-13] MEDS: PANTOPRAZOLE 40MG INJ (PROTONIX) (C9113) IV SCH (08:32)
[2018-12-13] MEDS: THIAMINE HCL 200 MG/2 ML VIAL (J3411) IM SCH (08:32)
[2018-12-13] MEDS: SPIRONOLACTONE 25 MG TAB PO SCH (08:32)
[2018-12-13] MEDS: ALLOPURINOL 300 MG TAB PO SCH (08:32)
[2018-12-13 10:00] VITALS: BP 105/56
[2018-12-13 14:00] VITALS: BP 109/54
[2018-12-13] MEDS ORDERED: NYST1CRE15 TOP (14:19)
--- NOTE | 2018-12-13 16:35 | DSES ---
DATE OF ADMISSION: 12/04/2018 DATE OF DISCHARGE: 12/13/2018 CONSULTANTS: Dr. Salvador, general surgery. Dr. Shirley, interventional radiology for cholecystostomy tube placement. DISCHARGE DIAGNOSES: 1. Ruptured acute cholecystitis with abscess formation, status post cholecystostomy drainage tube placement. 2. Left lower lobe healthcare associated pneumonia. 3. Chronic obstructive pulmonary disease (COPD) exacerbation. 4. Systolic heart failure, compensated. 5. Obesity, Body Mass Index (BMI) of 37 with obstructive sleep apnea, noncompliant with continuous positive airway pressure (CPAP). 6. Gout. 7. History of deep vein thrombosis (DVT) and pulmonary embolus, status post IVC filter. 8. History of alcohol abuse. 9. Dyslipidemia. DISCHARGE MEDICATIONS: - Augmentin 875 mg by mouth twice a day for 7 days - Cipro 500 mg by mouth twice a day - albuterol 2.5 every 6 hours as needed - allopurinol 300 mg daily - Eliquis 5 mg twice a day - atorvastatin 40 mg daily - Symbicort two puffs inhaled twice a day - Refresh one drop OU four times a day as needed - Coreg 25 mg twice a day - vitamin D3 2000 units daily - fluticasone two sprays daily as needed - Combivent inhaled four times a day - magnesium oxide 400 mg twice a day - Zofran 4 mg every 6 hours as needed - oxycodone/acetaminophen one tablet every 4 hours as needed - potassium 30 mEq daily - spironolactone 25 mg twice a day - Spiriva one daily - torsemide 40 mg daily HOSPITAL COURSE: This is a 63-year-old male who presented to the emergency room with complaints of diffuse abdominal pain and pressure for the third time in the past month. CT showed a ruptured acute cholecystitis with liver involvement and left lower lobe focal consolidation. The patient was admitted for IV antibiotics, was started on ertapenem, made nothing by mouth, held diuretics and given IV fluids. The patient was given IV morphine and Tylenol as needed for pain, Zofran and Protonix for nausea and stress ulcer prophylaxis, respectively. Two sets of blood cultures were negative. On 12/05/2018 the patient underwent cholecystostomy tube placement by interventional radiology and was found to have Klebsiella pneumoniae, Escherichia (E) coli , Enterococcus faecalis. He was continued on ertapenem and ampicillin. He remained afebrile throughout the entire admission with white count being normal. The patient had a drainage placed by interventional radiology with output of 140 mL for 3 days, 30 mL from overnight. Per surgery, the patient may be discharged home. CT of the abdomen and pelvis also noted lower lobe area of consolidation, which was treated as healthcare associated pneumonia. The patient had completed 8 days of intravenous antibiotics with ertapenem. No complaints of cough, fever, chills, with normal white count. He passed a home safety evaluation and is stable for hospital discharge. LABORATORIES ON DISCHARGE: White count 4.7, hemoglobin 12, hematocrit 40, platelet count of 173. Sodium 137, potassium 3.5, chloride 105, bicarbonate 28, BUN 18, creatinine 0.93, glucose 91. Microbiology: Abscess with Klebsiella, Escherichia (E) coli , Enterococcus faecalis sensitive to Augmentin and ciprofloxacin. The patient did receive imipenem and ampicillin during this admission. Time spent on discharge: 30 minutes. [facility]
== END 2018-12-13 14:52 | disposition home or self-care (01) | DRG 444 ==
LOC: M ED 15:59 → M ED INP 20:49 → M PCU 22:34 → M MSPAV 12-06 15:21
PROVIDERS: ADMIT Internal Medicine; ATTEND General Practice
PROC: 0F9440Z Drainage of Gallbladder with Drainage Device, Percutaneous Endoscopic Approach (ICD-10-PCS; principal; 2018-12-05 15:00)
DX: K81.0 Acute cholecystitis (principal); J18.9 Pneumonia, unspecified organism; J44.1 Chronic obstructive pulmonary disease with (acute) exacerbation; J96.11 Chronic respiratory failure with hypoxia; I50.22 Chronic systolic (congestive) heart failure; I42.5 Other restrictive cardiomyopathy; N17.9 Acute kidney failure, unspecified; K82.A2 Perforation of gallbladder in cholecystitis; E66.01 Morbid (severe) obesity due to excess calories; Z68.37 Body mass index [BMI] 37.0-37.9, adult; G47.33 Obstructive sleep apnea (adult) (pediatric); E78.5 Hyperlipidemia, unspecified; F10.10 Alcohol abuse, uncomplicated; M10.9 Gout, unspecified; Z91.19 Patient's noncompliance with other medical treatment and regimen; Z86.718 Personal history of other venous thrombosis and embolism; Z86.711 Personal history of pulmonary embolism; Z79.899 Other long term (current) drug therapy; I48.91 Unspecified atrial fibrillation; Z79.01 Long term (current) use of anticoagulants; E11.9 Type 2 diabetes mellitus without complications; Z85.47 Personal history of malignant neoplasm of testis; I11.0 Hypertensive heart disease with heart failure; K59.00 Constipation, unspecified; N40.0 Benign prostatic hyperplasia without lower urinary tract symptoms; B96.29 Other Escherichia coli [E. coli] as the cause of diseases classified elsewhere; B96.1 Klebsiella pneumoniae [K. pneumoniae] as the cause of diseases classified elsewhere; Z68.36 Body mass index [BMI] 36.0-36.9, adult

== ENCOUNTER → 2018-12-21 | Outpatient (CLI) | payer OTHER ==
[~2018-12-21] MED LIST changes: +AMOX875T2 PO; +CIPR-249 PO; +NYST1CRE15 TOP; +ONDA4TAB5 PO; +OXYC1TAB23 PO; +PT COMMENT; +SENN-53 PO; -SENN1TAB40 PO
[2018-12-21 10:28] LABS: HEMATOCRIT 44.9 % (42.0-52.0); HEMOGLOBIN 14.2 g/dl (13.5-17.5); MEAN CORPUSCULAR HEMOGLOBIN 28.8 pg (27.0-33.0); MEAN CORPUSCULAR HGB CONC 31.6 g/dl (32.0-36.5); MEAN CORPUSCULAR VOLUME 91.1 fl (80.0-96.0); PLATELET COUNT, AUTOMATED 184 10^3/uL (150-450); RED BLOOD COUNT 4.93 10^6/uL (4.30-6.10); WHITE BLOOD COUNT 5.9 10^3/uL (4.0-10.0)
[2018-12-21 10:52] LABS: ALBUMIN 2.9 GM/DL (3.2-5.2); BILIRUBIN,DIRECT 0.1 MG/DL (0.0-0.2); BILIRUBIN,TOTAL 0.6 MG/DL (0.2-1.0); TOTAL PROTEIN 5.9 GM/DL (6.4-8.2)
== END ==
LOC: M LAB 09:40
PROVIDERS: ATTEND Surgery
DX: J44.9 Chronic obstructive pulmonary disease, unspecified (principal)

== ENCOUNTER → 2019-01-03 | Outpatient (CLI) | payer OTHER ==
[~2019-01-03] MED LIST changes: +ISOVUE-300 61% 50ML VIAL (Q9967) As Ordered ONE
--- NOTE | 2019-01-03 15:47 | REP ---
Cholecystostomy check: Indication: Status post cholecystostomy placement for acute cholecystitis. Surgical planning. Findings: Contrast injected through the existing right upper quadrant cholecystostomy catheter demonstrates that the cystic duct is patent. There is communication with the common bile duct and intrahepatic bile ducts. There is a round filling defect in the distal common bile duct. Impression: Cystic duct is now patent. Possible obstructing stone in the distal common bile duct. Thank you this referral. Electronically Signed by Alaina Shirley MD 01/03/2019 03:45 P
[2019-01-03 16:17] VITALS: BP 135/98
--- NOTE | 2019-01-04 07:15 | REP ---
MRI ABDOMEN WITHOUT CONTRAST: MRCP exam. HISTORY: Acute cholecystitis. Status post percutaneous cholecystostomy tube placement. Comparison CT study December 04, 2018. TECHNIQUE: Axial and coronal T1- and T2-weighted scans were obtained. MRCP exam is acquired and maximal intensity projection images are generated. MRCP FINDINGS: There are scattered small T2 hyperintense foci in the liver consistent with cyst. The largest of these is anteriorly in the right lobe measuring 1.0 cm. The gallbladder is largely, although not completely emptied by the percutaneous cholecystostomy tube. There are some filling defects in the gallbladder suggesting small stones. There is some pericholecystic edema and/or fluid. The intrahepatic bile ducts are not dilated. There are two and possibly a third small nodular filling defects in the common bile duct consistent with choledocholithiasis. The intrahepatic and extrahepatic bile ducts are not dilated. Pancreatic duct does not appear to be dilated. IMPRESSION: Findings consistent with choledocholithiasis. No biliary dilation is seen. There are least to filling defects in the distal common bile duct. Electronically Signed by Benjamin Calloway MD 01/04/2019 09:09 A
== END ==
LOC: M RAD 13:04
PROVIDERS: ATTEND Surgery
DX: K80.50 Calculus of bile duct without cholangitis or cholecystitis without obstruction (principal)
CPT/HCPCS: 74181; Q9967

== ENCOUNTER 2019-01-22 13:00 | Emergency (ER) | payer OTHER ==
[~2019-01-22] VITALS: Ht 190.5 cm; Wt 137.7 kg
[~2019-01-22 13:00] MED LIST changes: -ISOVUE-300 61% 50ML VIAL (Q9967) As Ordered ONE
[2019-01-22] MEDS ORDERED: PROMETHAZINE INJ 25 MG/ML VIAL (J2550) IV ONE (13:30)
[2019-01-22] MEDS ORDERED: NS 500 ML IV ONE ×2 (13:30→16:45)
[2019-01-22] MEDS ORDERED: ISOVUE-370 76% 100ML VIAL (Q9967) As Ordered ONE (13:51)
[2019-01-22 13:57] LABS: BASO % 0.7 % (0.0-1.0); EOS # 0.1 10^3/uL (0.0-0.5); EOS % 1.1 % (0.0-3.0); HEMATOCRIT 43.3 % (42.0-52.0); HEMOGLOBIN 13.6 g/dl (13.5-17.5); LYMPH # 0.9 10^3/uL (1.5-5.0); LYMPH % 20.7 % (24.0-44.0); MEAN CORPUSCULAR HEMOGLOBIN 29.6 pg (27.0-33.0); MEAN CORPUSCULAR HGB CONC 31.4 g/dl (32.0-36.5); MEAN CORPUSCULAR VOLUME 94.1 fl (80.0-96.0); MONO # 0.3 10^3/uL (0.0-0.8); NEUTROPHILS # 3.2 10^3/uL (1.5-8.5); NEUTROPHILS % 70.3 % (36.0-66.0); PLATELET COUNT, AUTOMATED 169 10^3/uL (150-450); WHITE BLOOD COUNT 4.6 10^3/uL (4.0-10.0)
[2019-01-22 14:21] LABS: ALBUMIN 2.9 GM/DL (3.2-5.2); ALT/SGPT 16 U/L (12-78); AMYLASE 28 U/L (25-115); BILIRUBIN,DIRECT 0.2 MG/DL (0.0-0.2); BILIRUBIN,TOTAL 0.7 MG/DL (0.2-1.0); CK-MB VALUE MASS < 1.0 NG/ML (<3.6); CPK CREATINE PHOSPHOKINASE 23 U/L (39-308); LIPASE 62 U/L (73-393); MB/CK RELATIVE INDEX 4.35 (< OR =4); TOTAL PROTEIN 5.4 GM/DL (6.4-8.2); TROPONIN I < 0.02 NG/ML (< 0.10)
--- NOTE | 2019-01-22 14:26 | REP ---
Clinical: Abdominal pain and vomiting. Comparison: 12/04/2018 Technique: Axial contrast enhanced images from the lung bases to the pubic symphysis with coronal and sagittal re-formations using 100 ml Isovue 370 intravenous contrast material. Findings: Percutaneous cholecystostomy tube is identified within the gallbladder along with mild gallbladder wall thickening and minimal pericholecystic stranding as well as small suspected gallstones. In comparison with prior examination the gallbladder is considerably decreased in size and with decreased surrounding inflammatory changes. Liver, spleen, pancreas, and bilateral adrenal glands are normal. The kidneys demonstrate chronic-appearing perinephric stranding without hydronephrosis. The enteric system is without obstruction or acute inflammatory process. Scattered sigmoid diverticula noted without acute diverticulitis. Pelvis demonstrates normal bladder and age appropriate prostate/seminal vesicles. Fat containing left inguinal hernia noted. No ascites. No free air. No obvious adenopathy. Retroperitoneal lymph node dissection and IVC filter identified. Musculoskeletal structures demonstrate degenerative changes. Lung bases demonstrate chronic fibro atelectatic change and left lower lobe small focal consolidation. Impression: 1. The patient is status post percutaneous cholecystostomy tube with improved appearance to the gallbladder and surrounding inflammatory changes. 2. Further chronic changes as noted above. 3. No new acute process identified. No ascites. No adenopathy. Electronically Signed by Fred Bill MD 01/22/2019 02:17 P
--- NOTE | 2019-01-22 14:41 | REP ---
CT brain without contrast: History: Vertigo. Comparison head CT study May 07, 2016. Findings: Preliminary digital riffler tender radiograph is noncontributory. Bony calvarium is intact. No bony destructive lesion or fracture is seen. The visualized paranasal sinuses are clear. No intraorbital abnormality is seen. There is mild generalized volume loss again noted. There is no evidence of intracranial hemorrhage or mass. No infarct or extra-axial fluid collection is seen. [place] white differentiation pattern is intact. Impression: Vascular calcification in the carotid siphons. Minimal volume loss. No acute intracranial abnormality. Electronically Signed by Benjamin Calloway MD 01/22/2019 03:04 P
[2019-01-22] MEDS ORDERED: diphenhydrAMINE INJ 50MG/ML VIAL (J1200) IV STA ×2 (15:45→16:37)
[2019-01-22] MEDS ORDERED: diazePAM 10 MG/2 ML INJ (J3360) IV ONE (17:15)
--- NOTE | 2019-01-22 19:56 | ECGEPIP ---
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
[2019-01-22] MEDS ORDERED: BENZTROPINE 1 MG TAB PO ONE (20:00)
--- NOTE | 2019-01-22 20:23 | REPVR ---
PROCEDURE INFORMATION: Exam: US Duplex Bilateral Lower Extremity Veins Exam date and time: 01/22/2019 7:51 PM Age: 63 years old Clinical history: Edema, localized; Lower extremity, bilateral; Additional info: Pain, swelling, cancer TECHNIQUE: Imaging protocol: Real-time duplex ultrasound of the Bilateral Lower Extremities with 2-D bhatti scale, color Doppler flow and spectral waveform analysis with image documentation. Complete exam focused on the bilateral lower extremity veins. COMPARISON: US Duplex, Ext,LOWER veins,unilat 05/30/2014 2:23 PM FINDINGS: Right deep veins: Unremarkable. The common femoral, femoral, proximal profunda femoral and popliteal veins are patent without thrombus. Normal Doppler waveforms. Normal compressibility and/or augmentation response. Right superficial veins: Saphenofemoral junction is patent without thrombus. Left deep veins: Unremarkable. The common femoral, femoral, proximal profunda femoral and popliteal veins are patent without thrombus. Normal Doppler waveforms. Normal compressibility and/or augmentation response. Left superficial veins: Saphenofemoral junction is patent without thrombus. Soft tissues: Unremarkable. IMPRESSION: No sonographic evidence of deep vein thrombosis. Electronically signed by: Gilberto Yanez On 01/22/2019 20:23:39 PM
[2019-01-22] MEDS ORDERED: MECL-68 PO (20:55)
[2019-01-22] MEDS ORDERED: BENZ-52 PO (20:55)
[2019-01-22 21:00] VITALS: BP 99/63
[2019-01-22] MEDS ORDERED: MECLIZINE 25 MG TABLET PO ONE (21:00)
== END 2019-01-22 21:43 | disposition home or self-care (01) ==
LOC: M ED 13:00 → EDBD 13:00 → M ED 21:43
DX: R42 Dizziness and giddiness (principal); T50.995A Adverse effect of other drugs, medicaments and biological substances, initial encounter; X58.XXXA Exposure to other specified factors, initial encounter; Y92.89 Other specified places as the place of occurrence of the external cause; R22.40 Localized swelling, mass and lump, unspecified lower limb; E11.9 Type 2 diabetes mellitus without complications; J44.9 Chronic obstructive pulmonary disease, unspecified; I50.9 Heart failure, unspecified; I48.91 Unspecified atrial fibrillation; N40.0 Benign prostatic hyperplasia without lower urinary tract symptoms; G47.33 Obstructive sleep apnea (adult) (pediatric); Z88.8 Allergy status to other drugs, medicaments and biological substances; Z79.899 Other long term (current) drug therapy; Z79.01 Long term (current) use of anticoagulants; Z87.891 Personal history of nicotine dependence
CPT/HCPCS: 36415; 70450; 74177; 80047; 80076; 81001; 82150; 82550; 82553; 83605; 83690; 84484; 85025; 87040; 87088; 87186; 93005; 93041; 93970; 96374; 96375; 96376; 99285; J1200; J3360; Q9967

== ENCOUNTER → 2019-02-06 | Outpatient (POV) | payer OTHER ==
[~2019-02-06] VITALS: Ht 190.5 cm; Wt 136.4 kg
[~2019-02-06] MED LIST changes: +BENZ-52 PO; +MECL-68 PO
[2019-02-06 08:30] VITALS: BP 120/73
--- NOTE | 2019-02-07 08:20 | IRPN ---
[facility] IR Progress Note IR Progress Note DATE: Feb 06, 2019 FOLLOW-UP: 63-year-old male 8 weeks status post cholecystostomy catheter placement for cholecystitis and gallbladder perforation. Follow-up cholangiogram demonstrated filling defect in the distal common bile duct and patient is a waiting ERCP for common bile bile duct stone removal prior to cholecystectomy. No fevers or chills. No pain. ON EXAMINATION: Cholecystostomy catheter site soft nontender. The catheter was flushed with 10 mL sterile saline. IMPRESSION: Will require cholecystectomy catheter change in February at the 12 week joao and we will schedule this. Advised catheter should stay in until time of surgery and should be flushed daily with sterile saline. Prescription given. Thank you for this referral Cc Dr. Pierre Cc Dr. Salvador Allergies Coded Allergies: promethazine (Verified Adverse Reaction, Unknown, 01/22/19) skin crawling VS,Fishbone, I+O VS, Fishbone, I+O Vital Signs Date Time Temp Pulse Resp B/P (MAP) Pulse Ox O2 Delivery O2 Flow Rate FiO2 02/06/19 08:30 97.6 71 18 120/73 (89) 95 Room Air CECELIA LIVE MD Feb 07, 2019 08:20
== END ==
LOC: M IRPOV 08:25
PROVIDERS: ATTEND Radiology Diagnostic Radiology
DX: Z43.4 Encounter for attention to other artificial openings of digestive tract (principal); K80.50 Calculus of bile duct without cholangitis or cholecystitis without obstruction

== ENCOUNTER → 2019-03-05 | Outpatient (CLI) | payer OTHER ==
[~2019-03-05] MED LIST changes: +ISOVUE-300 61% 50ML VIAL (Q9967) As Ordered ONE; +LIDOCAINE 1% MDV 20ML VIAL As Ordered ONE
[2019-03-05 14:00] VITALS: BP 133/86
--- NOTE | 2019-03-06 09:03 | REP ---
IR cholecystostomy catheter exchange. IR cholangiogram. Clinical information: Gallstones. Cholecystostomy placed when the patient was not a candidate for surgery. Surgery planned. Physician: Dr. Shirley. Procedure: The patient was advised of the benefits, risks and alternatives of the procedure and informed consent was obtained. The time-out was performed with verification of the patient's name, MRN, site of procedure and type of procedure to be performed. The patient was positioned in the supine position on the angiographic table. The site was prepped and draped in the usual sterile fashion. Moderate sedation was not performed. The physician spent 30 minutes of continuous face to face time with the patient. A microsoft bi architect radiograph reveals a cholecystostomy catheter in expected location. An initial cholangiogram was performed through the preexisting catheter and this demonstrates patent cystic duct. There is distal common bile duct obstruction. Lidocaine was injected around the catheter exit site. The catheter and sutures were cut, a wire was passed into the gallbladder. The preexisting catheter was removed over the wire. A new 10 -Gamb[place] all-purpose catheter was advanced over the wire, under fluoroscopy guidance, into the gallbladder. The wire was removed and the pigtail was formed. Injection of contrast under fluoroscopy guidance through the catheter, confirms location in the gallbladder. The catheter was secured in position with 2-0 Prolene and a sterile dressing was applied. The catheter was placed gravity drainage. The patient tolerated the procedure well and was returned to the [facility] in stable condition. EBL: Less than 5 ml. Complications: None. Conclusion: 1. Cholangiogram demonstrates persistent distal common bile duct obstruction. 2. Successful cholecystostomy catheter exchange. Catheter may be removed at time of surgery. If not, then patient to return in 8-12 weeks for routine catheter exchange. Thank you this referral. Electronically Signed by Alaina Shirley MD 03/06/2019 09:02 A
== END ==
LOC: M IRPRO 11:00
PROVIDERS: ATTEND Radiology Diagnostic Radiology
DX: K80.20 Calculus of gallbladder without cholecystitis without obstruction (principal)
CPT/HCPCS: 47536; C1729; C1769; Q9967

== ENCOUNTER 2019-05-09 11:00 | Inpatient (IN) | payer OTHER ==
[~2019-05-09] VITALS: Ht 190.5 cm; Wt 131.1 kg
[~2019-05-09 11:00] MED LIST changes: -ISOVUE-300 61% 50ML VIAL (Q9967) As Ordered ONE; -LIDOCAINE 1% MDV 20ML VIAL As Ordered ONE; -MECL-68 PO; +MECL1TAB31 PO; +ONDA-83 PO; -ONDA4TAB5 PO
[2019-05-09] MEDS ORDERED: NS 500 ML IV ONE (11:30)
[2019-05-09] MEDS ORDERED: ISOVUE-370 76% 100ML VIAL (Q9967) As Ordered ONE (11:43)
[2019-05-09 11:45] LABS: VENOUS BASE EXCESS -0.5 (-2.0-2.0); VENOUS HCO3 23.8 MEQ/L (23.0-27.0); VENOUS O2 SATURATION 90.3 % (60.0-80.0); VENOUS PARTIAL PRESSURE CO2 38.2 mmHg (38.0-50.0); VENOUS PARTIAL PRESSURE O2 60.3 mmHg (30.0-50.0); VENOUS PH 7.412 UNITS (7.330-7.430); VENOUS STANDARD HCO3 23.9 MEQ/L
[2019-05-09 11:58] LABS: BASO # 0.1 10^3/uL (0.0-0.2); BASO % 0.7 % (0.0-1.0); EOS # 0.1 10^3/uL (0.0-0.5); EOS % 0.5 % (0.0-3.0); HEMOGLOBIN 15.8 g/dl (13.5-17.5); LYMPH # 1.3 10^3/uL (1.5-5.0); LYMPH % 14.4 % (24.0-44.0); MEAN CORPUSCULAR HGB CONC 32.9 g/dl (32.0-36.5); MEAN CORPUSCULAR VOLUME 88.2 fl (80.0-96.0); MONO # 0.9 10^3/uL (0.0-0.8); MONO % 9.7 % (0.0-5.0); NEUTROPHILS # 6.7 10^3/uL (1.5-8.5); NEUTROPHILS % 73.6 % (36.0-66.0); PLATELET COUNT, AUTOMATED 285 10^3/uL (150-450); RED BLOOD COUNT 5.44 10^6/uL (4.30-6.10); WHITE BLOOD COUNT 9.1 10^3/uL (4.0-10.0)
--- NOTE | 2019-05-09 11:59 | REP ---
Portable chest, 11:45 a.m., single AP view the patient sitting: Comparison is 08/16/2018. The lung oro are clear. Cardiac size is enlarged, unchanged. The chris, mediastinum, skeletal structures are unremarkable. There is no free subdiaphragmatic air. Impression: Negative portable chest. Electronically Signed by Amando Nuñez MD 05/09/2019 11:50 A
[2019-05-09 12:04] LABS: INR 1.2
[2019-05-09 12:05] LABS: PARTIAL THROMBOPLASTIN TIME 27.8 SECONDS (25.0-38.4)
[2019-05-09] MEDS ORDERED: COLA100C5 PO (12:11)
[2019-05-09] MEDS ORDERED: SIME80TA PO (12:11)
[2019-05-09] MEDS ORDERED: BISA1TAB PO (12:11)
[2019-05-09] MEDS ORDERED: OXYC-517 PO (12:11)
[2019-05-09 12:25] LABS: ALBUMIN 2.8 GM/DL (3.2-5.2); ALT/SGPT 22 U/L (12-78); AMYLASE 24 U/L (25-115); BILIRUBIN,DIRECT 0.2 MG/DL (0.0-0.2); BILIRUBIN,TOTAL 0.6 MG/DL (0.2-1.0); BLOOD UREA NITROGEN 24 MG/DL (7-18); CALCIUM LEVEL 8.9 MG/DL (8.8-10.2); CARBON DIOXIDE LEVEL 25 MEQ/L (21-32); CHLORIDE LEVEL 105 MEQ/L (98-107); CK-MB VALUE MASS < 1.0 NG/ML (<3.6); CPK CREATINE PHOSPHOKINASE 19 U/L (39-308); CREATININE FOR GFR 1.11 MG/DL (0.70-1.30); GLOMERULAR FILTRATION RATE > 60.0 (>49); GLUCOSE, FASTING 121 MG/DL (70-100); LIPASE 86 U/L (73-393); MB/CK RELATIVE INDEX 5.26 (< OR =4); POTASSIUM SERUM 3.2 MEQ/L (3.5-5.1); SODIUM LEVEL 139 MEQ/L (136-145); TROPONIN I < 0.02 NG/ML (< 0.10)
--- NOTE | 2019-05-09 12:54 | REP ---
CT of the abdomen and pelvis with IV contrast, without bowel contrast: Comparison is 01/22/2019. There has been interim cholecystectomy. There is induration of the mesenteric fat in the gallbladder fossa, rosa hepatis, and inferomedial to the liver. This could all represent postsurgical change, bile leak, or inflammation. No free fluid in the abdomen is identified. There is no pneumoperitoneum. There is no bowel distension or obstruction. There is a vena cava [place] filter. This is unchanged. There are numerous periaortic surgical clips. This is unchanged. There is a nodular density accompanied by minor atelectasis in the lower lobe of the left lung in the visualized lung oro. The nodule appears decreased in size from the comparison study. There is a hyperdense nodule anteriorly in the left lobe of the liver and a measuring 15 mm and a hypodense lesion anteriorly in the left lobe of the liver measuring 9 mm and these are unchanged from prior study 08/11/2016. The pancreas and spleen are unremarkable. The adrenals are unremarkable. The kidneys are unremarkable. The abdominal aorta is unremarkable. There are periaortic surgical clips as previously. There is no bowel distension or obstruction. The mesentery is unremarkable. There are surgical clips in the mesentery on the left. These are unchanged. Pelvis: The terminal ileum is unremarkable. The appendix is not identified, however, there is no pericecal inflammation or abscess. The pelvic bowel loops are unremarkable. The bladder is unremarkable. There is no adenopathy or ascites. Impression: There has been interim cholecystectomy. There is induration of the mesenteric fat in the rosa hepatis and medial to the liver. This could represent postsurgical change, bile leak or inflammation. There is no free intraperitoneal fluid or pneumoperitoneum. There are small hepatic nodules as described, unchanged from 08/11/2016. There is a vena cava filter, unchanged . There are numerous periaortic surgical clips. Unchanged. No bowel distension or obstruction. No hydronephrosis. Electronically Signed by Amando Nuñez MD 05/09/2019 12:45 P
[2019-05-09] MEDS ORDERED: ONDANSETRON 4MG/2ML VIAL (J2405) IV PRN (14:45)
[2019-05-09] MEDS ORDERED: MECLIZINE 25 MG TABLET PO PRN ×2 (14:45→23:45)
[2019-05-09] MEDS ORDERED: POTASSIUM CHLORIDE 10 MEQ SR TABLET PO ONE (14:45)
[2019-05-09] MEDS ORDERED: ACETAMINOPHEN TAB 650MG DOSE (2X325MG) PO PRN (14:45)
[2019-05-09] MEDS ORDERED: VITAD1000T PO (14:50)
[2019-05-09] MEDS ORDERED: DOCUSATE SODIUM 100 MG CAP PO PRN (15:00)
[2019-05-09] MEDS ORDERED: BISACODYL 5 MG TAB PO PRN (15:00)
[2019-05-09] MEDS ORDERED: IPRATROPIUM 0.5MG/ALBUTEROL 2.5MG INH SOL UD 3ML (DUONEB)(J7620) NEB PRN (15:00)
[2019-05-09] MEDS ORDERED: PIPERACILLIN/TAZOBACTAM SOD 3.375 GM in D5W MINI-BAG PLUS 50 ML IV ONE (15:00)
[2019-05-09 15:23] LABS: C REACTIVE PROTEIN QUANTITATIV 8.05 MG/DL (0.00-0.30)
--- NOTE | 2019-05-09 15:50 | HPEPDOC ---
General Date of Admission May 09, 2019 at 11:01 Date of Service: May 09, 2019 Chief Complaint The patient is a 63-year-old male who presented to the ER with complaints of nausea and dizziness progressive over the last 2 weeks. History of Present Illness Patient is a 63 year old male with a PMHx of HTN, Systolic CHF, Atrial fibrillation (on Eliquis), Hx of DVT s/p IVC, ИВАН (not compliant with CPAP), COPD, BPH, Testicular CA (s/p R orchiectomy + LN dissection), Gout, Obesity who presented to the ER with complaints of nausea. Patient was admitted to [facility] on 12/04/2018 for abdominal pain and had a cholecystostomy performed at that time. He was discharged with instructions to follow up with [facility] for gallbladder removal. Patient ultimately had the procedure completed on 04/20/2019 at [facility]. He noted that he remained there for several days after until he was cleared for discharge. It has been ~ 10 days since his discharge from [facility]. He reports that since that point he has been experiencing worsening nausea. Patient has denied any significant vomiting. He noted that today he began experiencing dizziness that he described as room spinning. He reports he had associated double vision at the time as well. He denies any CP, palpitations or cough. Patient reports some SOB that has worsened from baseline. He denies any leg swelling, orthopnea or PND. Patient reports some abdominal discomfort, but notes that it is mainly under his ribs on both sides. He does attest that this has been the case since his discharge from the [facility]. Reports that his pain has improved since he was discharged. Patient has reported some diarrhea that he describes as watery sto ol. Last bowel movement was this morning. Patient is been expressing very poor appetite and has reported approximately 20 pound weight loss over the last 2 weeks. Home Medications Scheduled Acetazolamide (Acetazolamide) 250 Mg Tablet, 250 MG PO BID, (Reported) Allopurinol (Zyloprim) 300 Mg Tablet, 300 MG PO DAILY, (Reported) Apixaban (Eliquis) 5 Mg Tab, 5 MG PO BID, (Reported) Atorvastatin Calcium (Atorvastatin Calcium) 80 Mg Tablet, 40 MG PO DAILY, (Reported) Budesonide/Formoterol (Symbicort 160-4.5 Mcg Inhaler) 60 Puff/Inhaler Aers, 2 PUFF INH BID, (Reported) Carvedilol (Carvedilol) 25 Mg Tablet, 25 MG PO BID, (Reported) Cholecalciferol (Vitamin D3) (Vitamin D3) 1,000 Unit Tablet, 2,000 UNITS PO DAILY, (Reported) Magnesium Oxide (Magnesium Oxide) 400 Mg Tablet, 400 MG PO BID, (Reported) Potassium Chloride (Potassium Chloride) 10 Meq Tab.er.prt, 30 MEQ PO DAILY, (Reported) Simethicone (Simethicone) 80 Mg Tab.chew, 80 MG PO QID for gas, (Reported) Spironolactone (Spironolactone) 25 Mg Tablet, 25 MG PO BID, (Reported) Tiotropium [place] (Spiriva) 18 Mcg Cap.w.dev, 1 CAP INH DAILY, (Reported) Torsemide (Torsemide) 20 Mg Tablet, 40 MG PO DAILY, (Reported) Scheduled PRN Albuterol Sulf (Albuterol Sulfate) 2.5 Mg/3 Ml Nebu, 2.5 MG INH Q6H PRN for SHORTNESS OF BREATH, (Reported) Albuterol Sulfate (Ventolin Hfa) 108 Mcg/Act Aer, 1 PUFF INH QID PRN for SHORTNESS OF BREATH, (Reported) Bisacodyl (Bisacodyl) 5 Mg Tablet.dr, 10 MG PO BID PRN for CONSTIPATION, (Reported) Docusate Sodium (Colace) 100 Mg Capsule, 100 MG PO DAILY PRN for CONSTIPATION, (Reported) Fluticasone Propionate (Fluticasone Propionate) 15.8 Ml [place].susp, 2 SPRAYS NARES QAM PRN for CONGESTION, (Reported) Oxycodone HCl (Oxycodone HCl) 5 Mg Tablet, 5 MG PO Q6H PRN for pain, (Reported) Allergies Coded Allergies: promethazine (Verified Adverse Reaction, Unknown, 01/22/19) skin crawling Past Medical History Medical History HTN, Systolic CHF, Atrial fibrillation (on Eliquis), Hx of DVT s/p IVC, ИВАН (not compliant with CPAP), COPD, BPH, Testicular CA (s/p R orchiectomy + LN dissection), Gout, Obesity Surgical History Right orchiectomy 1978 Left inguinal hernia repair Abdominal hernia repair Cholecystectomy 04/20/2019 Family History - Mother and father both with a history of heart disease - Brother with a history of throat cancer and a sister with a history of breast cancer Social History - Denies the use of tobacco or illicit drugs; patient does report the use of alcohol. 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 Review of Systems Other systems 10 point review of systems complete, all negative otherwise stated in HPI Vital Signs - Vitals: BP 178/104, HR 94, RR 20, Sat 98%RA, Temp 97.2F - General: Lying in bed, No acute distress, Speaking in full sentences, AAOx3 - HEENT: NC, AT, PERRLA, EOMI - CVS: RRR, +S1S2 - Lungs: Fair air entry bilaterally, No rales / rhonchi, Mild wheezing appreciated bilaterally - Abdomen: Soft, Non-distended, Mild epigastric tenderness, post-surgical scars noted - Extremities: No lower extremity edema, No calf tenderness - Neuro: No focal motor or sensory deficit - Skin: No visible rashes Laboratory Data Labs 24H Laboratory Tests 2 05/09/19 11:36: Immature Granulocyte % (Auto) 1.1, Neutrophils (%) (Auto) 73.6H, Lymphocytes (%) (Auto) 14.4L, Monocytes (%) (Auto) 9.7H, Eosinophils (%) (Auto) 0.5, Basophils (%) (Auto) 0.7, Neutrophils # (Auto) 6.7, Lymphocytes # (Auto) 1.3L, Monocytes # (Auto) 0.9H, Eosinophils # (Auto) 0.1, Basophils # (Auto) 0.1, Nucleated Red Blood Cells % (auto) 0.0, Prothrombin Time 15.0H, Prothromb Time International Ratio 1.20, Activated Partial Thromboplast Time 27.8, Blood Gas Bicarbonate Standard 23.9, Venous Blood pH 7.412, Venous Blood Partial Pressure CO2 38.2, Venous Blood Partial Pressure O2 60.3H, Venous Blood Total Carbon Dioxide 25.0, Venous Blood HCO3 23.8, Venous Blood Oxygen Saturation 90.3H, Venous Blood Base Excess -0.5, Anion Gap 9, Glomerular Filtration Rate > 60.0, Lactic Acid Level 1.6, Calcium Level 8.9, Total Bilirubin 0.6, Direct Bilirubin 0.2, Aspartate Amino Transf (AST/SGOT) 10, Alanine Aminotransferase (ALT/SGPT) 22, Alkaline Phosphatase 88, Total Creatine Kinase 19L, Creatine Kinase MB < 1.0, Creatine Kinase MB Relative Index 5.26H, Troponin I < 0.02, C-Reactive Protein, Quantitative 8.05H, Total Protein 6.0L, Albumin 2.8L, Albumin/Globulin Ratio 0.88L, Amylase Level 24L, Lipase 86 05/09/19 11:37: POC Glucose (Misc Panel) 123H, POC Sodium (Misc Panel) 139, POC Potassium (Misc Panel) 3.1L, POC Chloride (Misc Panel) 101, POC Total CO2 (Misc Panel) 24.0, POC Blood Urea Nitrogen (Misc Panel 23, POC Ionized Calcium (Misc Panel) 4.6, POC Creatinine (Misc Panel) 1.1, POC Hematocrit (Misc Panel) 49.0 CBC/BMP Laboratory Tests 05/09/19 11:36 Microbiology Microbiology 05/09/19 Blood Culture, Received Pending 05/09/19 Blood Culture, Received Pending Plan / VTE VTE Prophylaxis Ordered?: Yes Plan Plan Vertigo / Dizziness - Patient describes room spinning type sensation upon moving his head - Will get MRI to evaluate for potential stroke - c/w Telemetry monitoring - Will start Meclizine - Will get PT (Vestibular therapy) on board Nausea without vomiting - possibly 2/2 intra-abdominal infection given recent surgical intervention (Cholecystectomy) - Patient reported that since discharge, hes been experiencing worsening nausea - He has reported that he has very poor appetite and may have experienced greater than 20 pound weight loss - Hemodynamically stable / Afebrile - No leukocytosis / No lactic acidosis - CXR 05/08: Negative portable chest. - CT abdomen / pelvis 05/08: There has been interim cholecystectomy. There is induration of the mesenteric fat in the rosa hepatis and medial to the liver. This could represent postsurgical change, bile leak or inflammation. There is no free intraperitoneal fluid or pneumoperitoneum. There are small hepatic nodules as described, unchanged from 08/11/2016. There is a vena cava filter, unchanged . There are numerous periaortic surgical clips. Unchanged. No bowel distension or obstruction. No hydronephrosis. - Will check HIDA scan to evaluate for bile leak; if present may require [place] sfer for ERCP - Will check blood cultures, UA with reflex culture - Will provide symptomatic control with Zofran - Will provide broad spectrum intra-abdominal coverage with Zosyn - Case was discussed with general surgery, Dr. Brown; will be on consultation HTN - BP moderately controlled - c/w Carvedilol, Acetazolamide, Spironolactone and Torsemide Systolic CHF - No evidence of exacerbation - c/w Carvedilol, Acetazolamide, Spironolactone and Torsemide Atrial fibrillation - c/w rate control with carvedilol - c/w full anticoagulation with Eliquis Hx of DVT - s/p IVC - currently on full anticoagulation ИВАН - Not compliant with CPAP COPD - Mild wheezing noted on exam - c/w inhaled therapy as ordered BPH - Currently not on medications Testicular CA - s/p R orchiectomy + LN dissection in the past Gout - c/w Allopurinol Obesity - Complicating medical care Gastrointestinal prophylaxis - Will start Protonix DVT prophylaxis - Will c/w full anticoagulation with АННА Looney MD May 09, 2019 15:50
--- NOTE | 2019-05-09 17:17 | REP ---
MRI brain without contrast: History: Possible stroke. Dizziness and vertigo. Comparison head CT study January 22, 2019. Technique: Axial and sagittal imaging planes are utilized for T1 and T2-weighted scans. Sequences include spin-echo, fast spin echo, FLAIR, and diffusion weighted sequences. MRI findings: Bony calvarium shows no evidence of bony lesion. Craniocervical junction and upper cervical cord are normal in appearance. There is mucosal thickening affecting the right maxillary sinus, moderate in degree. No intraorbital abnormality. On diffusion weighted scans, there is no evidence to suggest acute ischemia or other cause of restricted diffusion. There is no evidence of intracranial hemorrhage. A persistent cavum septum pellucidum is noted incidentally. There is no evidence of mass, extra-axial fluid collection or midline shift. Minimal small vessel changes are noted in the periventricular white matter. Impression: Minimal small vessel changes. No evidence of acute ischemia or other acute intracranial abnormality. Mucosal thickening affecting the right maxillary sinus. Electronically Signed by Benjamin Calloway MD 05/10/2019 08:08 A
[2019-05-09 17:44] VITALS: BP 136/90
[2019-05-09] MEDS: ATORVASTATIN 20 MG TAB PO SCH (17:59)
[2019-05-09] MEDS: TORSEMIDE 20 MG TAB PO SCH (18:03)
[2019-05-09] MEDS: allopurinoL 300 MG TAB PO SCH (18:04)
[2019-05-09] MEDS: VITAMIN D 1,000 INTERNATIONAL UNITS TABLET PO SCH (18:06)
[2019-05-09] MEDS: SIMETHICONE 80 MG CHEW TAB PO SCH ×2 (18:07→22:44)
[2019-05-09] MEDS: POTASSIUM CHLORIDE 10 MEQ SR TABLET PO SCH (18:30)
[2019-05-09] MEDS: IPRATROPIUM 0.5MG/ALBUTEROL 2.5MG INH SOL UD 3ML (DUONEB)(J7620) NEB SCH (19:27)
[2019-05-09] MEDS: SYMBICORT 160/4.5MCG INHALER 6GM INH SCH (19:27)
[2019-05-09 20:00] VITALS: BP 112/63
--- NOTE | 2019-05-09 20:56 | ECGEPIP ---
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
[2019-05-09] MEDS: CARVedilol 12.5 MG TAB PO SCH (21:00)
[2019-05-09] MEDS: SPIRONOLACTONE 25 MG TAB PO SCH (21:00)
[2019-05-09 22:30] VITALS: BP 98/65
[2019-05-09] MEDS: PIPERACILLIN/TAZOBACTAM SOD 3.375 GM in D5W MINI-BAG PLUS 50 ML IV SCH (22:43)
[2019-05-09] MEDS: AcetaZOLAMIDE 250 MG TAB PO SCH (22:44)
[2019-05-09] MEDS: MAGNESIUM OXIDE 400 MG TAB (MAG-OX) PO SCH (22:44)
[2019-05-09] MEDS: APIXABAN 5 MG TAB (ELIQUIS) PO SCH (22:44)
[2019-05-09] MEDS: PANTOPRAZOLE 40MG INJ (PROTONIX) (C9113) IV SCH (22:44)
[2019-05-09] MEDS: FLUTICASONE PROP 0.05% NASAL SPRAY 16 GM (FLONASE) NARES SCH (22:45)
[2019-05-09 23:00] VITALS: BP 108/79
[2019-05-09] MEDS: oxyCODONE 5MG TAB PO PRN (23:01)
[2019-05-10] VITALS (7 sets, daily range): BP systolic 100–140; BP diastolic 55–86
[2019-05-10] MEDS: IPRATROPIUM 0.5MG/ALBUTEROL 2.5MG INH SOL UD 3ML (DUONEB)(J7620) NEB SCH ×3 (01:50→13:40)
[2019-05-10] MEDS: PIPERACILLIN/TAZOBACTAM SOD 3.375 GM in D5W MINI-BAG PLUS 50 ML IV SCH ×4 (04:18→21:59)
[2019-05-10 05:03] LABS: BASO # 0.1 10^3/uL (0.0-0.2); BASO % 1.1 % (0.0-1.0); EOS # 0.1 10^3/uL (0.0-0.5); HEMATOCRIT 45.1 % (42.0-52.0); HEMOGLOBIN 14.9 g/dl (13.5-17.5); LYMPH # 1.9 10^3/uL (1.5-5.0); LYMPH % 29.2 % (24.0-44.0); MEAN CORPUSCULAR HEMOGLOBIN 29.4 pg (27.0-33.0); MEAN CORPUSCULAR VOLUME 89.1 fl (80.0-96.0); MONO # 0.7 10^3/uL (0.0-0.8); MONO % 11.2 % (0.0-5.0); NEUTROPHILS # 3.6 10^3/uL (1.5-8.5); NEUTROPHILS % 55.4 % (36.0-66.0); PLATELET COUNT, AUTOMATED 246 10^3/uL (150-450); RED BLOOD COUNT 5.06 10^6/uL (4.30-6.10); WHITE BLOOD COUNT 6.5 10^3/uL (4.0-10.0)
[2019-05-10 05:30] LABS: BLOOD UREA NITROGEN 20 MG/DL (7-18); CALCIUM LEVEL 8.1 MG/DL (8.8-10.2); CARBON DIOXIDE LEVEL 27 MEQ/L (21-32); CHLORIDE LEVEL 105 MEQ/L (98-107); CREATININE FOR GFR 1.13 MG/DL (0.70-1.30); GLOMERULAR FILTRATION RATE > 60.0 (>49); GLUCOSE, FASTING 100 MG/DL (70-100); MAGNESIUM LEVEL 1.8 MG/DL (1.8-2.4); POTASSIUM SERUM 2.9 MEQ/L (3.5-5.1); SODIUM LEVEL 140 MEQ/L (136-145)
[2019-05-10] MEDS ORDERED: POTASSIUM CHLORIDE 10 MEQ SR TABLET PO ONE ×2 (05:45→07:00)
[2019-05-10] MEDS: SYMBICORT 160/4.5MCG INHALER 6GM INH SCH (07:45)
[2019-05-10] MEDS: TIOTROPIUM INHALER/CAPSULE (SPIRIVA) INH SCH (07:45)
--- NOTE | 2019-05-10 09:49 | REP ---
HEPATOBILIARY SCAN: HISTORY: Suspected bile leak. Comparison CT study May 09, 2019. TECHNIQUE: 6.6 mCi technetium 99m mebrofenin is injected and sequential 5-minute images are acquired for 60 minutes post injection. FINDINGS: The gallbladder is surgically absent. Initial hepatocellular parenchymal uptake phase is normal and homogeneous. No focal liver lesion is seen. Extrahepatic bile ducts are first labeled at 10 minutes and normal washout from the liver parenchyma is seen on subsequent images into the small intestine. There is no evidence of bile stream leak on this study. IMPRESSION: Negative for bile leak. Normal washout into the small intestine. Electronically Signed by Benjamin Calloway MD 05/10/2019 12:35 P
[2019-05-10] MEDS: SIMETHICONE 80 MG CHEW TAB PO SCH ×4 (09:59→21:58)
[2019-05-10] MEDS: VITAMIN D 1,000 INTERNATIONAL UNITS TABLET PO SCH (09:59)
[2019-05-10] MEDS: ATORVASTATIN 20 MG TAB PO SCH (09:59)
[2019-05-10] MEDS: AcetaZOLAMIDE 250 MG TAB PO SCH ×2 (10:00→21:58)
[2019-05-10] MEDS: POTASSIUM CHLORIDE 10 MEQ SR TABLET PO SCH (10:00)
[2019-05-10] MEDS: CARVedilol 12.5 MG TAB PO SCH ×2 (10:01→21:59)
[2019-05-10] MEDS: TORSEMIDE 20 MG TAB PO SCH (10:01)
[2019-05-10] MEDS: MAGNESIUM OXIDE 400 MG TAB (MAG-OX) PO SCH ×2 (10:01→21:58)
[2019-05-10] MEDS: SPIRONOLACTONE 25 MG TAB PO SCH (10:02)
[2019-05-10] MEDS: allopurinoL 300 MG TAB PO SCH (10:03)
[2019-05-10] MEDS: FLUTICASONE PROP 0.05% NASAL SPRAY 16 GM (FLONASE) NARES SCH ×2 (10:03→21:00)
--- NOTE | 2019-05-10 10:30 | IPNPDOC ---
Text Note Date of Service The patient was seen on 05/10/19. NOTE Subjective: Patient is a 63 year old male with a PMHx of HTN, Systolic CHF, Atrial fibrillation (on Eliquis), Hx of DVT s/p IVC, ИВАН (not compliant with CPAP), COPD, BPH, Testicular CA (s/p R orchiectomy + LN dissection), Gout, Obesity who presented to the ER with complaints of nausea. Patient was admitted to [facility] on 12/04/2018 for abdominal pain and had a cholecystostomy performed at that time. He was discharged with instructions to follow up with [facility] for gallbladder removal. Patient ultimately had the procedure completed on 04/20/2019 at [facility]. He noted that he remained there for several days after until he was cleared for discharge. Patient presented to the hospital with complaints of nausea, vertigo-like symptoms and failure to keep down any food. Is admitted to hospitalist service for further evaluation and treatment. Surgery was called on consultation. Patient was seen and examined at the bedside. Currently patient reports that his nausea is doing significantly better. He denies any symptoms of vertigo. Denies chest pain, shortness of breath, palpitations. Reports that his abdominal pain is relatively the same as it has been post surgery. Denies any diarrhea. Has not experienced any urinary discomfort. Objective: Vitals (See below) General: Lying in bed, appears comfortable, AAOx3 HEENT: NC, AT CVS: +S1S2 Lungs: Fair air entry b/l, no appreciable wheezing / rhonchi / rales Abdomen: Soft, ND, mild epigastric tenderness, post-surgical changes noted Extremities: - Edema, - Calf tenderness Assessment and plan: Nausea / Retching - possibly 2/2 intra-abdominal infection given recent surgical intervention (Cholecystectomy) - Reports improvement of nausea - He has reported that he has very poor appetite and may have experienced greater than 20 pound weight loss - Hemodynamically stable / Afebrile - No leukocytosis / No lactic acidosis / CRP trending down - CXR 05/08: Negative portable chest. - CT abdomen / pelvis 05/08: There has been interim cholecystectomy. There is induration of the mesenteric fat in the rosa hepatis and medial to the liver. This could represent postsurgical change, bile leak or inflammation. There is no free intraperitoneal fluid or pneumoperitoneum. There are small hepatic nodules as described, unchanged from 08/11/2016. There is a vena cava filter, unchanged . There are numerous periaortic surgical clips. Unchanged. No bowel distension or obstruction. No hydronephrosis. - HIDA 05/09: Negative for bile leak. Normal washout into the small intestine. - Blood cultures without any growth; UA without evidence of infection - c/w Zofran PRN - c/w broad spectrum intra-abdominal coverage with Zosyn (Day #2) - General surgery on consultation, Dr. Brown; appreciate their input s/p Vertigo / Dizziness - Patient describes room spinning type sensation upon moving his head - MRI Brain 05/08: Minimal small vessel changes. No evidence of acute ischemia or other acute intracranial abnormality. Mucosal thickening affecting the right maxillary sinus. - c/w Telemetry monitoring - c/w Meclizine - c/w PT (Vestibular therapy) on board HTN - BP moderately controlled - c/w Carvedilol, Acetazolamide, Spironolactone and Torsemide Systolic CHF - No evidence of exacerbation - c/w Carvedilol, Acetazolamide, Spironolactone and Torsemide Atrial fibrillation - c/w rate control with carvedilol - c/w full anticoagulation with Eliquis Hx of DVT - s/p IVC - currently on full anticoagulation ИВАН - Not compliant with CPAP COPD - Mild wheezing noted on exam - c/w inhaled therapy as ordered BPH - Currently not on medications Testicular CA - s/p R orchiectomy + LN dissection in the past Gout - c/w Allopurinol Obesity - Complicating medical care Gastrointestinal prophylaxis - c/w Protonix DVT prophylaxis - c/w full anticoagulation with Eliquis Disposition: - No evidence of bile leak; will c/w broad spectrum coverage for now and symptomatic control - Awaiting input from surgery VS,Sonidobone, I+O VS, Fishbone, I+O Laboratory Tests 05/09/19 11:36 05/10/19 04:48 Vital Signs Date Time Temp Pulse Resp B/P (MAP) Pulse Ox O2 Delivery O2 Flow Rate FiO2 05/10/19 07:51 98.6 84 18 114/74 (87) 97 Room Air I&O- Last 24 Hours up to 6 AM 05/10/19 06:00 Intake Total 1990 ml Output Total 1400 ml Balance 590 ml АННА WHEELER MD May 10, 2019 10:30
[2019-05-10] MEDS: APIXABAN 5 MG TAB (ELIQUIS) PO SCH ×2 (10:36→21:58)
[2019-05-10 11:32] LABS: ALBUMIN 2.5 GM/DL (3.2-5.2); ALT/SGPT 20 U/L (12-78); BILIRUBIN,TOTAL 0.4 MG/DL (0.2-1.0); TOTAL PROTEIN 5.7 GM/DL (6.4-8.2)
--- NOTE | 2019-05-10 11:45 | CR ---
DATE OF CONSULTATION: 05/10/2019 CHIEF COMPLAINT: Postoperative abdominal pain, nausea, status post laparoscopic cholecystectomy at an outside hospital. HISTORY OF PRESENT ILLNESS: The patient is a 63-year-old male who underwent a laparoscopic cholecystectomy and it appears to be robotic assisted cholecystectomy at the [facility] about 2 weeks ago. He had a couple days of admission because of the extensive nature of his operative intervention and essentially noticed big abdominal wall ecchymosis, hematoma that has been okay but over the last couple of weeks he has had some weight loss, poor appetite. More importantly, he has had an increasing nausea over the last 24 hours. He had no vomiting. No fevers or chills. However, presents to the emergency room with a little bit of a left shift and some changes around his gallbladder fossa concerning for possible developing infection or bile leak. PAST MEDICAL HISTORY: The patient's past medical history is significant for history of hypertension and congestive heart failure, atrial fibrillation, deep venous thrombosis (DVT) of obstructive sleep apnea, chronic obstructive pulmonary disease (COPD), benign prostatic hypertrophy (BPH), testicular cancer with orchectomy and lymph node dissection, gout, morbid obesity right orchiectomy, left inguinal hernia repair, abdominal hernia repair and cholecystectomy. MEDICATIONS: Include - acetazolamide - Zyloprim - Eliquis - atorvastatin - Symbicort - carvedilol - vitamin D3 - magnesium oxide - potassium - simethicone - spironolactone - Spiriva - torsemide with additional as needed albuterol - Ventolin - stool softeners and laxatives. - oxycodone. PHYSICAL EXAMINATION: Obese white male who looks stated age. HEENT is unremarkable. NECK: Supple without adenopathy. LUNGS: Lungs are clear anteriorly. HEART: Regular with multiple irregular beats. ABDOMEN: Abdomen is soft with is nondistended, nontender. He has great deal of ecchymosis along his abdominal wall and his incisions are actually healing adequately well. No evidence of erythema, drainage or discharge. IMPRESSION AND PLAN: The patient had a previous cholecystostomy tube. This was removed at the time of his laparoscopic/robotic cholecystectomy and given this history and a little bit of a left shift and inflammatory changes in the gallbladder fossa, the most likely etiology is that he has a postoperative infection, essentially with a chronic drain in place, this makes it a contaminated field and with the amount of ecchymosis, he probably had a little bit of oozing from the operative site as well, which would increase his likelihood of postoperative infection. There is theoretically a lower chance of bile leak, but in general, I would expect to be seeing a lot more of fluid in the perihepatic space and free fluid in this area, etc., but I do feel that it is reasonable to proceed with a HIDA scan to rule out any evidence of bile leak. If this is negative, then my recommendation is to treat him such as a possible postoperative infection with IV antibiotics for 24-48 hours. Once his nausea resolves, then I would progress his diet and discharge him home on by mouth antibiotics with routine followup with his primary care/surgeon at the [facility].
[2019-05-10 17:03] LABS: CALCIUM LEVEL 8.5 MG/DL (8.8-10.2); CREATININE FOR GFR 1.34 MG/DL (0.70-1.30); GLOMERULAR FILTRATION RATE 57.3 (>49); MAGNESIUM LEVEL 1.7 MG/DL (1.8-2.4); POTASSIUM SERUM 3.5 MEQ/L (3.5-5.1)
[2019-05-10] MEDS ORDERED: MAG SULF 1GM/100ML (MAG RUN) 1 GM in IV 1 EA IV ONE (17:30)
[2019-05-10] MEDS: PANTOPRAZOLE 40MG INJ (PROTONIX) (C9113) IV SCH (21:58)
[2019-05-11] MEDS: IPRATROPIUM 0.5MG/ALBUTEROL 2.5MG INH SOL UD 3ML (DUONEB)(J7620) NEB SCH ×4 (00:44→18:28)
[2019-05-11] MEDS: PIPERACILLIN/TAZOBACTAM SOD 3.375 GM in D5W MINI-BAG PLUS 50 ML IV SCH (03:48)
[2019-05-11 06:00] VITALS: BP 114/63
[2019-05-11 06:47] LABS: BASO # 0.1 10^3/uL (0.0-0.2); BASO % 1.3 % (0.0-1.0); EOS # 0.2 10^3/uL (0.0-0.5); EOS % 3.5 % (0.0-3.0); HEMATOCRIT 42.2 % (42.0-52.0); HEMOGLOBIN 13.7 g/dl (13.5-17.5); LYMPH # 1.8 10^3/uL (1.5-5.0); LYMPH % 28.3 % (24.0-44.0); MEAN CORPUSCULAR HEMOGLOBIN 28.8 pg (27.0-33.0); MEAN CORPUSCULAR HGB CONC 32.5 g/dl (32.0-36.5); MEAN CORPUSCULAR VOLUME 88.8 fl (80.0-96.0); MONO # 0.6 10^3/uL (0.0-0.8); MONO % 9.1 % (0.0-5.0); NEUTROPHILS # 3.6 10^3/uL (1.5-8.5); NEUTROPHILS % 56.4 % (36.0-66.0); PLATELET COUNT, AUTOMATED 233 10^3/uL (150-450); RED BLOOD COUNT 4.75 10^6/uL (4.30-6.10); WHITE BLOOD COUNT 6.4 10^3/uL (4.0-10.0)
[2019-05-11 07:18] LABS: BLOOD UREA NITROGEN 15 MG/DL (7-18); C REACTIVE PROTEIN QUANTITATIV 3.26 MG/DL (0.00-0.30); CALCIUM LEVEL 8.5 MG/DL (8.8-10.2); CARBON DIOXIDE LEVEL 26 MEQ/L (21-32); CHLORIDE LEVEL 105 MEQ/L (98-107); CREATININE FOR GFR 1.22 MG/DL (0.70-1.30); GLOMERULAR FILTRATION RATE > 60.0 (>49); GLUCOSE, FASTING 100 MG/DL (70-100); MAGNESIUM LEVEL 2.1 MG/DL (1.8-2.4); POTASSIUM SERUM 2.8 MEQ/L (3.5-5.1); SODIUM LEVEL 139 MEQ/L (136-145)
[2019-05-11] MEDS: TIOTROPIUM INHALER/CAPSULE (SPIRIVA) INH SCH (07:30)
[2019-05-11] MEDS: SYMBICORT 160/4.5MCG INHALER 6GM INH SCH ×2 (07:30→18:28)
[2019-05-11] MEDS ORDERED: POTASSIUM CHLORIDE 10 MEQ SR TABLET PO ONE ×2 (08:00→10:00)
[2019-05-11] MEDS: ATORVASTATIN 20 MG TAB PO SCH (08:23)
[2019-05-11] MEDS: SIMETHICONE 80 MG CHEW TAB PO SCH ×4 (08:23→21:21)
[2019-05-11] MEDS: MAGNESIUM OXIDE 400 MG TAB (MAG-OX) PO SCH ×2 (08:23→21:20)
[2019-05-11] MEDS: allopurinoL 300 MG TAB PO SCH (08:23)
[2019-05-11] MEDS: AcetaZOLAMIDE 250 MG TAB PO SCH ×2 (08:24→21:20)
[2019-05-11] MEDS: VITAMIN D 1,000 INTERNATIONAL UNITS TABLET PO SCH (08:24)
[2019-05-11] MEDS: CARVedilol 12.5 MG TAB PO SCH ×2 (08:24→21:23)
[2019-05-11] MEDS: APIXABAN 5 MG TAB (ELIQUIS) PO SCH ×2 (08:24→21:20)
[2019-05-11] MEDS: oxyCODONE 5MG TAB PO PRN (08:25)
[2019-05-11] MEDS ORDERED: AUGM875T28 PO (09:52)
[2019-05-11] MEDS: FLUTICASONE PROP 0.05% NASAL SPRAY 16 GM (FLONASE) NARES SCH ×2 (09:53→21:24)
--- NOTE | 2019-05-11 10:30 | IPN ---
DATE: 05/11/2019 The patient overall is been doing quite well overnight. He has been afebrile. No significant pain discomfort, tolerating a diet at this point. Did have some diarrhea this morning although this may be secondary to his antibiotics. His primary has ordered a CDF testing. From a surgical standpoint, however, his abdomen is benign and he seems to be doing well from a surgical standpoint. His ecchymosis seems to be slowly improving over time. He has a nontender abdomen. IMPRESSION AND PLAN: The patient is status post robotic-assisted laparoscopic cholecystectomy and seems to be making some slow but continuing progress and improvement. My recommendation at this time is that he be discharged home when he is medically stable. I would recommend empirically treating him for a possible infection given his high risk of having an infection with the cholecystostomy tube in and the extensive operative intervention that obviously he underwent, given the multiple trocar sites, etc. in the postoperative hospitalization overnight. Thus, I would recommend that he follow up with his primary care provider/his primary surgeon in a week or two for re-evaluation. Otherwise, from a surgical standpoint, no new surgical recommendations are given at this time.
--- NOTE | 2019-05-11 11:17 | IPN ---
DATE: 05/10/2019 After a discussion with Dr. Macias the patient has been quite stable overnight, white count has dropped nicely, although was not significantly elevated and he had a little bit of a left shift but now it is not so much present at this time. Although he has a monocytosis and possibly what has been going on is much more of a viral infection instead of the true bacterial infection, but with his previous cholecystostomy tube in place and it appears to have extensive operative intervention of this gallbladder I would tend to recommend that we should treat him empirically for a possible post cholecystectomy abscess/infection. I anticipate with his significant clinical improvement as well as his overall visible improvement on laboratory etc. that he should be able to be converted over to by mouth antibiotics and discharged home once he is stable from a medical standpoint.
[2019-05-11] MEDS: AUGMENTIN 875 MG TAB PO SCH ×2 (11:53→21:20)
--- NOTE | 2019-05-11 12:03 | IPNPDOC ---
Text Note Date of Service The patient was seen on 05/11/19. NOTE Subjective: Patient is a 63 year old male with a PMHx of HTN, Systolic CHF, Atrial fibrillation (on Eliquis), Hx of DVT s/p IVC, ИВАН (not compliant with CPAP), COPD, BPH, Testicular CA (s/p R orchiectomy + LN dissection), Gout, Obesity who presented to the ER with complaints of nausea. Patient was admitted to [facility] on 12/04/2018 for abdominal pain and had a cholecystostomy performed at that time. He was discharged with instructions to follow up with [facility] for gallbladder removal. Patient ultimately had the procedure completed on 04/20/2019 at [facility]. He noted that he remained there for several days after until he was cleared for discharge. Patient presented to the hospital with complaints of nausea, vertigo-like symptoms and failure to keep down any food. Is admitted to hospitalist service for further evaluation and treatment. Surgery was called on consultation. Patient was seen and examined at the bedside. Patient reports that he is feeling better today. Denies any dizziness / vertigo like symptoms. Has not experienced any nausea and has been tolerating his clear liquid diet. Patient denies any worsening of his abdominal pain. Has had a watery bowel movement this morning. Objective: Vitals (See below) General: Lying in bed, appears comfortable, AAOx3 HEENT: NC, AT CVS: +S1S2 Lungs: Air entry remain fair b/l, no rhonchi / rales / wheezing on exam Abdomen: Again remains soft without any significant distention / tenderness, post-surgical changes noted Extremities: LE are free of any edema, - Calf tenderness Assessment and plan: Nausea / Retching - possibly 2/2 intra-abdominal infection given recent surgical intervention (Cholecystectomy) - No nausea, tolerating clear liquid diet - Remains hemodynamically stable / afebrile - No leukocytosis / No lactic acidosis / CRP continues to trend down - CXR 05/08: Negative portable chest. - CT abdomen / pelvis 05/08: There has been interim cholecystectomy. There is induration of the mesenteric fat in the rosa hepatis and medial to the liver. This could represent postsurgical change, bile leak or inflammation. There is no free intraperitoneal fluid or pneumoperitoneum. There are small hepatic nodules as described, unchanged from 08/11/2016. There is a vena cava filter, unchanged . There are numerous periaortic surgical clips. Unchanged. No bowel distension or obstruction. No hydronephrosis. - HIDA 05/09: Negative for bile leak. Normal washout into the small intestine. - Blood cultures without any growth; UA without evidence of infection - C. diff PCR Pending - c/w Zofran PRN - Will start Augmentin PO; Will DC broad spectrum intra-abdominal coverage with Zosyn (Antibiotic day #3) - General surgery on consultation, Dr. Brown; appreciate their input - Will advance diet today; anticipate discharge tomorrow s/p Vertigo / Dizziness - Patient describes room spinning type sensation upon moving his head - MRI Brain 05/08: Minimal small vessel changes. No evidence of acute ischemia or other acute intracranial abnormality. Mucosal thickening affecting the right maxillary sinus. - c/w Telemetry monitoring - c/w Meclizine - c/w PT (Vestibular therapy) on board HTN - BP moderately controlled - c/w Carvedilol, Acetazolamide, Spironolactone and Torsemide Systolic CHF - No evidence of exacerbation - c/w Carvedilol, Acetazolamide, Spironolactone and Torsemide Atrial fibrillation - c/w rate control with carvedilol - c/w full anticoagulation with Eliquis Hx of DVT - s/p IVC - currently on full anticoagulation ИВАН - Not compliant with CPAP COPD - Mild wheezing noted on exam - c/w inhaled therapy as ordered BPH - Currently not on medications Testicular CA - s/p R orchiectomy + LN dissection in the past Gout - c/w Allopurinol Obesity - Complicating medical care Gastrointestinal prophylaxis - c/w Protonix DVT prophylaxis - c/w full anticoagulation with Eliquis Disposition: - Transitioned to PO antibiotics - Cleared PT for discharge home - Awaiting his ability to tolerate an advanced diet - Anticipate discharge home tomorrow AM VS,Fishbone, I+O VS, Fishbone, I+O Laboratory Tests 05/10/19 16:20 05/11/19 06:17 Vital Signs Date Time Temp Pulse Resp B/P (MAP) Pulse Ox O2 Delivery O2 Flow Rate FiO2 05/11/19 08:55 16 05/11/19 08:25 Room Air 05/11/19 08:24 94 114/63 05/11/19 06:00 97.7 96 I&O- Last 24 Hours up to 6 AM 05/11/19 06:00 Intake Total 2350 ml Output Total 0 ml Balance 2350 ml АННА WHEELER MD May 11, 2019 12:03
[2019-05-11] MEDS: LACTOBACILLUS ACIDOPHILUS CAP (BACID) PO SCH ×2 (12:41→21:21)
[2019-05-11 14:00] VITALS: BP 119/73
[2019-05-11] MEDS: PANTOPRAZOLE 40MG INJ (PROTONIX) (C9113) IV SCH (21:20)
[2019-05-11 21:23] VITALS: BP 116/80
[2019-05-11 22:00] VITALS: BP 116/80
[2019-05-12] MEDS: IPRATROPIUM 0.5MG/ALBUTEROL 2.5MG INH SOL UD 3ML (DUONEB)(J7620) NEB SCH ×2 (02:00→08:00)
[2019-05-12 06:00] VITALS: BP 100/62
[2019-05-12 06:24] LABS: BASO # 0.1 10^3/uL (0.0-0.2); BASO % 0.9 % (0.0-1.0); EOS # 0.2 10^3/uL (0.0-0.5); HEMATOCRIT 40.5 % (42.0-52.0); LYMPH # 1.7 10^3/uL (1.5-5.0); LYMPH % 31.1 % (24.0-44.0); MEAN CORPUSCULAR HEMOGLOBIN 28.9 pg (27.0-33.0); MEAN CORPUSCULAR HGB CONC 32.1 g/dl (32.0-36.5); MONO # 0.4 10^3/uL (0.0-0.8); MONO % 8.2 % (0.0-5.0); NEUTROPHILS % 55.5 % (36.0-66.0); PLATELET COUNT, AUTOMATED 214 10^3/uL (150-450); WHITE BLOOD COUNT 5.4 10^3/uL (4.0-10.0)
[2019-05-12 06:43] LABS: BLOOD UREA NITROGEN 11 MG/DL (7-18); C REACTIVE PROTEIN QUANTITATIV 1.95 MG/DL (0.00-0.30); CARBON DIOXIDE LEVEL 26 MEQ/L (21-32); CHLORIDE LEVEL 107 MEQ/L (98-107); CREATININE FOR GFR 0.96 MG/DL (0.70-1.30); GLOMERULAR FILTRATION RATE > 60.0 (>49); GLUCOSE, FASTING 112 MG/DL (70-100); POTASSIUM SERUM 3.1 MEQ/L (3.5-5.1); SODIUM LEVEL 137 MEQ/L (136-145)
[2019-05-12] MEDS: TIOTROPIUM INHALER/CAPSULE (SPIRIVA) INH SCH (07:50)
[2019-05-12] MEDS: SYMBICORT 160/4.5MCG INHALER 6GM INH SCH (07:50)
[2019-05-12] MEDS ORDERED: POTASSIUM CHLORIDE 10 MEQ SR TABLET PO ONE ×2 (08:00→10:00)
[2019-05-12] MEDS ORDERED: CARV25TA PO (08:38)
--- NOTE | 2019-05-12 08:59 | DS.PDOC ---
Discharge Summary General Date of Admission May 10, 2019 at 10:21 Date of Discharge 05/12/2019 Discharge Summary PROCEDURES PERFORMED DURING STAY: [None]. ADMITTING DIAGNOSES / DISCHARGE DIAGNOSES: Nausea / Retching - possibly 2/2 intra-abdominal infection given recent surgical intervention (Cholecystectomy) s/p Vertigo / Dizziness HTN Systolic CHF Atrial fibrillation Hx of DVT ИВАН COPD BPH Testicular CA Gout Obesity Gastrointestinal prophylaxis DVT prophylaxis COMPLICATIONS/CHIEF COMPLAINT: Nausea HISTORY OF PRESENT ILLNESS: Patient is a 63 year old male with a PMHx of HTN, Systolic CHF, Atrial fibrillation (on Eliquis), Hx of DVT s/p IVC, ИВАН (not compliant with CPAP), COPD, BPH, Testicular CA (s/p R orchiectomy + LN dissection), Gout, Obesity who presented to the ER with complaints of nausea. Patient was admitted to [facility] on 12/04/2018 for abdominal pain and had a cholecystostomy performed at that time. He was discharged with instructions to follow up with [facility] for gallbladder removal. Patient ultimately had the procedure completed on 04/20/2019 at [facility]. He noted that he remained there for several days after until he was cleared for discharge. Patient presented to the hospital with complaints of nausea, vertigo-like symptoms and failure to keep down any food. Is admitted to hospitalist service for further evaluation and treatment. Surgery was called on consultation. HOSPITAL COURSE: Nausea / Retching - possibly 2/2 intra-abdominal infection given recent surgical intervention (Cholecystectomy) - Has not experienced any nausea / vomiting, has been tolerating a full diet - Remains hemodynamically stable / afebrile - No leukocytosis / No lactic acidosis / CRP improving - CXR 05/08: Negative portable chest. - CT abdomen / pelvis 05/08: There has been interim cholecystectomy. There is induration of the mesenteric fat in the rosa hepatis and medial to the liver. This could represent postsurgical change, bile leak or inflammation. There is no free intraperitoneal fluid or pneumoperitoneum. There are small hepatic nodules as described, unchanged from 08/11/2016. There is a vena cava filter, unchanged . There are numerous periaortic surgical clips. Unchanged. No bowel distension or obstruction. No hydronephrosis. - HIDA 05/09: Negative for bile leak. Normal washout into the small intestine. - Blood cultures without any growth; UA without evidence of infection - c/w Zofran PRN - c/w Augmentin PO; s/p Zosyn (Antibiotic day #4) - General surgery on consultation, Dr. Brown; appreciate their input - Will have outpatient follow up with [place] [facility] s/p Vertigo / Dizziness - Patient describes room spinning type sensation upon moving his head - MRI Brain 05/08: Minimal small vessel changes. No evidence of acute ischemia or other acute intracranial abnormality. Mucosal thickening affecting the right maxillary sinus. - c/w Telemetry monitoring - c/w Meclizine - c/w PT (Vestibular therapy) on board HTN - BP controlled - Will reduce dose of Carvedilol - Will hold Acetazolamide, Spironolactone and Torsemide for 1 day Systolic CHF - No evidence of exacerbation - Will reduce dose of Carvedilol - Will hold Acetazolamide, Spironolactone and Torsemide for 1 day Atrial fibrillation - c/w rate control with carvedilol at reduced dose - c/w full anticoagulation with Eliquis Hx of DVT - s/p IVC - currently on full anticoagulation ИВАН - Not compliant with CPAP COPD - Mild wheezing noted on exam - c/w inhaled therapy as ordered BPH - Currently not on medications Testicular CA - s/p R orchiectomy + LN dissection in the past Gout - c/w Allopurinol Obesity - Complicating medical care Gastrointestinal prophylaxis - c/w Protonix DVT prophylaxis - c/w full anticoagulation with Eliquis DISCHARGE MEDICATIONS: Please see below. ALLERGIES: Please see below. PHYSICAL EXAMINATION ON DISCHARGE: Vitals (See below) General: Lying in bed, appears comfortable, AAOx3 HEENT: NC, AT CVS: +S1S2 Lungs: Air entry is fair bilaterally without evidence of rhonchi, wheezing or crackles Abdomen: Well-healed postsurgical incisions noted, remains soft, without any distention or tenderness Extremities: Lower extremities do not reveal any evidence of pitting edema, - Calf tenderness LABORATORY DATA: Please see below. ACTIVITY: [As tolerated]. DISCHARGE PLAN: Follow-up with surgery at [facility] Remain compliant with treatment plan and medications Return to the ER if you experience any problems DISPOSITION: Home DISCHARGE CONDITION: [Stable]. TIME SPENT ON DISCHARGE: 35 minutes Vital Signs/I&Os Vital Signs Date Time Temp Pulse Resp B/P (MAP) Pulse Ox O2 Delivery O2 Flow Rate FiO2 05/12/19 06:00 98.1 81 19 100/62 (75) 96 Room Air I&O- Last 24 Hours up to 6 AM 05/12/19 05:59 Intake Total 1540 ml Output Total 400 ml Balance 1140 ml Laboratory Data Labs 24H Laboratory Tests 2 05/12/19 05:49: Immature Granulocyte % (Auto) 1.3, Neutrophils (%) (Auto) 55.5, Lymphocytes (%) (Auto) 31.1, Monocytes (%) (Auto) 8.2H, Eosinophils (%) (Auto) 3.0, Basophils (%) (Auto) 0.9, Neutrophils # (Auto) 3.0, Lymphocytes # (Auto) 1.7, Monocytes # (Auto) 0.4, Eosinophils # (Auto) 0.2, Basophils # (Auto) 0.1, Nucleated Red Blood Cells % (auto) 0.0, Anion Gap 4L, Glomerular Filtration Rate > 60.0, Calcium Level 8.0L, Magnesium Level 2.0, C-Reactive Protein, Quantitative 1.95H CBC/BMP Laboratory Tests 05/12/19 05:49 Microbiology Microbiology 05/09/19 Blood Culture - Preliminary, Resulted No Growth after 48 hours. All Specime... 05/09/19 Blood Culture - Preliminary, Resulted No Growth after 48 hours. All Specime... Discharge Medications Scheduled Acetazolamide (Acetazolamide) 250 Mg Tablet, 250 MG PO BID Resume on 05/14/2019 Allopurinol (Zyloprim) 300 Mg Tablet, 300 MG PO DAILY, (Reported) Amoxicillin/Potassium Clav (Augmentin 875-125 Tablet) 1 Each Tablet, 1 TAB PO BID Apixaban (Eliquis) 5 Mg Tab, 5 MG PO BID, (Reported) Atorvastatin Calcium (Atorvastatin Calcium) 80 Mg Tablet, 40 MG PO DAILY, (Reported) Budesonide/Formoterol (Symbicort 160-4.5 Mcg Inhaler) 60 Puff/Inhaler Aers, 2 PUFF INH BID, (Reported) Carvedilol (Carvedilol) 25 Mg Tablet, 12.5 MG PO BID Cholecalciferol (Vitamin D3) (Vitamin D3) 1,000 Unit Tablet, 2,000 UNITS PO DAILY, (Reported) Magnesium Oxide (Magnesium Oxide) 400 Mg Tablet, 400 MG PO BID, (Reported) Potassium Chloride (Potassium Chloride) 10 Meq Tab.er.prt, 30 MEQ PO DAILY, (Reported) Simethicone (Simethicone) 80 Mg Tab.chew, 80 MG PO QID for gas, (Reported) Spironolactone (Spironolactone) 25 Mg Tablet, 25 MG PO BID resume on 05/14/2019 Tiotropium Hall (Spiriva) 18 Mcg Cap.w.dev, 1 CAP INH DAILY, (Reported) Torsemide (Torsemide) 20 Mg Tablet, 40 MG PO DAILY resume on 05/14/2019 Scheduled PRN Albuterol Sulf (Albuterol Sulfate) 2.5 Mg/3 Ml Nebu, 2.5 MG INH Q6H PRN for SHORTNESS OF BREATH, (Reported) Albuterol Sulfate (Ventolin Hfa) 108 Mcg/Act Aer, 1 PUFF INH QID PRN for SHORTNESS OF BREATH, (Reported) Bisacodyl (Bisacodyl) 5 Mg Tablet.dr, 10 MG PO BID PRN for CONSTIPATION, (Reported) Docusate Sodium (Colace) 100 Mg Capsule, 100 MG PO DAILY PRN for CONSTIPATION, (Reported) Fluticasone Propionate (Fluticasone Propionate) 15.8 Ml [place].susp, 2 SPRAYS NARES QAM PRN for CONGESTION, (Reported) Oxycodone HCl (Oxycodone HCl) 5 Mg Tablet, 5 MG PO Q6H PRN for pain, (Reported) Allergies Coded Allergies: promethazine (Verified Adverse Reaction, Unknown, 01/22/19) skin crawling АННА WHEELER MD May 12, 2019 08:59
[2019-05-12] MEDS ORDERED: CARVedilol 12.5 MG TAB PO SCH (09:00)
[2019-05-12] MEDS ORDERED: SPIR-10 PO (09:01)
[2019-05-12] MEDS ORDERED: TORS20TA2 PO (09:01)
[2019-05-12] MEDS ORDERED: ACET250T2 PO (09:01)
[2019-05-12] MEDS: VITAMIN D 1,000 INTERNATIONAL UNITS TABLET PO SCH (10:12)
[2019-05-12] MEDS: SIMETHICONE 80 MG CHEW TAB PO SCH (10:12)
[2019-05-12] MEDS: APIXABAN 5 MG TAB (ELIQUIS) PO SCH (10:12)
[2019-05-12] MEDS: allopurinoL 300 MG TAB PO SCH (10:12)
[2019-05-12] MEDS: AUGMENTIN 875 MG TAB PO SCH (10:12)
[2019-05-12] MEDS: FLUTICASONE PROP 0.05% NASAL SPRAY 16 GM (FLONASE) NARES SCH (10:12)
[2019-05-12] MEDS: LACTOBACILLUS ACIDOPHILUS CAP (BACID) PO SCH (10:13)
[2019-05-12] MEDS: AcetaZOLAMIDE 250 MG TAB PO SCH (10:14)
[2019-05-12] MEDS: ATORVASTATIN 20 MG TAB PO SCH (10:14)
[2019-05-12] MEDS: MAGNESIUM OXIDE 400 MG TAB (MAG-OX) PO SCH (10:14)
== END 2019-05-12 12:06 | disposition home or self-care (01) | DRG 863 ==
LOC: M ED 11:00 → M ED INP 11:01 → ENRESERVTM 15:11 → M ICU 17:36 → OBSVTOIN 05-10 10:21 → M MSPAV 05-10 17:49
PROVIDERS: ADMIT Internal Medicine; ATTEND Internal Medicine
DX: T81.40XA Infection following a procedure, unspecified, initial encounter (principal); I50.22 Chronic systolic (congestive) heart failure; I48.91 Unspecified atrial fibrillation; J44.9 Chronic obstructive pulmonary disease, unspecified; R42 Dizziness and giddiness; E66.9 Obesity, unspecified; M10.9 Gout, unspecified; N40.0 Benign prostatic hyperplasia without lower urinary tract symptoms; Z86.718 Personal history of other venous thrombosis and embolism; G47.33 Obstructive sleep apnea (adult) (pediatric); Z85.47 Personal history of malignant neoplasm of testis; Z79.01 Long term (current) use of anticoagulants; Z91.19 Patient's noncompliance with other medical treatment and regimen; Z79.899 Other long term (current) drug therapy; Z88.8 Allergy status to other drugs, medicaments and biological substances

== ENCOUNTER 2021-06-10 15:11 | Emergency (ER) | payer MEDICARE, OTHER ==
[~2021-06-10] VITALS: Ht 190.5 cm; Wt 148.0 kg
[~2021-06-10 15:11] MED LIST changes: +BISA1TAB PO; +COLA100C5 PO; +COLC0.6T47 PO; -COLC1TAB13 PO; +DOXY-443 PO; -DOXY100C37 PO; -KLOR10TA76 PO; -KLOR20TA42 PO; -LISI-538 PO; +LISI20TA33 PO; +OXYC-517 PO; +POTA-136 PO; +POTA-141 PO; +POTA-149 PO; +POTA-151 PO; -POTA10TA16 PO; -POTA20TA6 PO; +SIME80CH5 PO; -SIME80TA PO; +VITA100093 PO
[2021-06-10 16:26] LABS: LYMPH % 9.5 % (24.0-44.0); MEAN CORPUSCULAR HEMOGLOBIN 31.6 pg (27.0-33.0); MEAN CORPUSCULAR HGB CONC 31.9 g/dl (32.0-36.5); MEAN CORPUSCULAR VOLUME 99.2 fl (80.0-96.0); PLATELET COUNT, AUTOMATED 128 10^3/uL (150-450); RED BLOOD COUNT 4.74 10^6/uL (4.30-6.10); WHITE BLOOD COUNT 5.6 10^3/uL (4.0-10.0)
[2021-06-10 16:27] LABS: BASO % 0.2 % (0.0-1.0); LYMPH # 0.5 10^3/uL (1.5-5.0); MONO # 0.1 10^3/uL (0.0-0.8); NEUTROPHILS # 4.9 10^3/uL (1.5-8.5)
[2021-06-10 16:44] LABS: INR 1.15; PROTHROMBIN TIME 15.1 SECONDS (12.7-14.5)
[2021-06-10 17:04] LABS: ALBUMIN 3.3 GM/DL (3.2-5.2); ALT/SGPT 23 U/L (12-78); BILIRUBIN,DIRECT 0.3 MG/DL (0.0-0.2); BILIRUBIN,TOTAL 0.9 MG/DL (0.2-1.0); BLOOD UREA NITROGEN 17 MG/DL (7-18); CARBON DIOXIDE LEVEL 32 MEQ/L (21-32); CHLORIDE LEVEL 104 MEQ/L (98-107); CREATININE FOR GFR 1.13 MG/DL (0.70-1.30); GLOMERULAR FILTRATION RATE > 60.0 (>49); GLUCOSE, FASTING 150 MG/DL (70-100); NT-PRO BNP 772 PG/ML (<125); SODIUM LEVEL 141 MEQ/L (136-145)
[2021-06-10] MEDS ORDERED: ISOVUE-370 76% 100ML VIAL As Ordered ONE (17:27)
[2021-06-10] MEDS ORDERED: FLOM0.4C39 PO (20:20)
[2021-06-10] MEDS ORDERED: KENAAER3 TOP (20:20)
[2021-06-10 21:08] LABS: C REACTIVE PROTEIN QUANTITATIV 2.29 MG/DL (0.00-0.30)
[2021-06-10 21:15] LABS: ERYTHROCYTE SEDIMENTATION RATE 12 mm/hr (0-20)
[2021-06-10 21:23] VITALS: BP 119/62
[2021-06-10 21:29] LABS: APPEARANCE, URINE HAZY (CLEAR); BACTERIA, URINE AUTO NEGATIVE (NEGATIVE); BILIRUBIN, URINE AUTO NEGATIVE (NEGATIVE); BLOOD, URINE BLOOD NEGATIVE (NEGATIVE); COLOR, URINE AMBER (YELLOW); GLUCOSE, URINE (UA) AUTO NEGATIVE (NEGATIVE); KETONE, URINE AUTO NEGATIVE (NEGATIVE); LEUKOCYTE ESTERASE, URINE AUTO NEGATIVE (NEGATIVE); MUCUS, URINE SMALL (NEGATIVE); NITRITE, URINE AUTO NEGATIVE (NEGATIVE); PROTEIN, URINE AUTO 1+ mg/dL (NEGATIVE); RBC, URINE AUTO 2 /HPF (0-3); SPECIFIC GRAVITY URINE AUTO 1.041 (1.002-1.035); SQUAMOUS EPITHELIAL CELL UR AU 1 /HPF (0-6); UROBILINOGEN, URINE AUTO 0.2 mg/dL (0.0-2.0); WBC, URINE AUTO 6 /HPF (0-3)
[2021-06-12 12:08] LABS: ANTINUCLEAR ANTIBODIES DIRECT Negative (Negative)
== END 2021-06-10 21:27 | disposition home or self-care (01) ==
LOC: EDBD 15:11 → M ED 15:11
DX: J44.1 Chronic obstructive pulmonary disease with (acute) exacerbation (principal); R06.02 Shortness of breath; N40.0 Benign prostatic hyperplasia without lower urinary tract symptoms; R21 Rash and other nonspecific skin eruption; E66.01 Morbid (severe) obesity due to excess calories; L40.9 Psoriasis, unspecified; K76.0 Fatty (change of) liver, not elsewhere classified; K40.30 Unilateral inguinal hernia, with obstruction, without gangrene, not specified as recurrent; M48.061 Spinal stenosis, lumbar region without neurogenic claudication; K76.89 Other specified diseases of liver; I11.0 Hypertensive heart disease with heart failure; I50.22 Chronic systolic (congestive) heart failure; I48.91 Unspecified atrial fibrillation; E78.5 Hyperlipidemia, unspecified; Z86.718 Personal history of other venous thrombosis and embolism; G47.33 Obstructive sleep apnea (adult) (pediatric); M10.9 Gout, unspecified; Z85.47 Personal history of malignant neoplasm of testis; Z88.8 Allergy status to other drugs, medicaments and biological substances; Z79.899 Other long term (current) drug therapy
CPT/HCPCS: 36415; 71045; 74177; 80048; 80076; 81001; 83880; 85025; 85610; 85652; 86038; 86140; 86780; 87798; 93005; 99284; Q9967

== ENCOUNTER → 2021-06-24 | Outpatient (REF) | payer OTHER ==
[~2021-06-24] MED LIST changes: +KENAAER3 TOP
== END ==
LOC: M SFHCDERM 17:15
PROVIDERS: ATTEND Physician Assistant
DX: L20.9 Atopic dermatitis, unspecified (principal)

== ENCOUNTER → 2021-08-10 | Outpatient (REF) | payer OTHER ==
[~2021-08-10] MED LIST changes: +ALBU2.5V10 INH; -ALBU83IN INH
== END ==
LOC: M SFHCDERM 14:23
PROVIDERS: ATTEND Physician Assistant
DX: B35.9 Dermatophytosis, unspecified (principal)

== ENCOUNTER → 2021-10-08 | Outpatient (CLI) | payer OTHER ==
[~2021-10-08] MED LIST changes: +E-Z-GAS II EFFERVESCENT PACKET (SODIUM BICARB./CITRIC ACID/SIMETHICONE) As Ordered ONE; +E-Z-HD 98% w/w 340GM SUSP BTL As Ordered ONE; +E-Z-PAQUE 96% w/w SUSP 176GM BTL As Ordered ONE
== END ==
LOC: M RAD 08:33
PROVIDERS: ATTEND Internal Medicine Gastroenterology
DX: R10.30 Lower abdominal pain, unspecified (principal)

== ENCOUNTER 2021-11-11 08:41 | Inpatient (IN) | payer OTHER ==
[~2021-11-11] VITALS: Ht 190.5 cm; Wt 157.6 kg
[2021-11-11] MEDS: TIOTROPIUM INHALER/CAPSULE (SPIRIVA) INH SCH (08:00)
[~2021-11-11 08:41] MED LIST changes: -E-Z-GAS II EFFERVESCENT PACKET (SODIUM BICARB./CITRIC ACID/SIMETHICONE) As Ordered ONE; -E-Z-HD 98% w/w 340GM SUSP BTL As Ordered ONE; -E-Z-PAQUE 96% w/w SUSP 176GM BTL As Ordered ONE
[2021-11-11] MEDS ORDERED: OMEP40CA5 PO (09:02)
[2021-11-11 09:03] LABS: BASO % 0.4 % (0.0-1.0); EOS # 0.1 10^3/uL (0.0-0.5); EOS % 1.3 % (0.0-3.0); HEMATOCRIT 47.3 % (42.0-52.0); HEMOGLOBIN 14.3 g/dl (13.5-17.5); LYMPH # 1.1 10^3/uL (1.5-5.0); LYMPH % 18.9 % (24.0-44.0); MEAN CORPUSCULAR HEMOGLOBIN 29.8 pg (27.0-33.0); MEAN CORPUSCULAR HGB CONC 30.2 g/dl (32.0-36.5); MEAN CORPUSCULAR VOLUME 98.5 fl (80.0-96.0); MONO # 0.5 10^3/uL (0.0-0.8); MONO % 9.7 % (2.0-8.0); NEUTROPHILS # 3.9 10^3/uL (1.5-8.5); NEUTROPHILS % 69.3 % (36.0-66.0); PLATELET COUNT, AUTOMATED 130 10^3/uL (150-450); WHITE BLOOD COUNT 5.6 10^3/uL (4.0-10.0)
[2021-11-11 09:24] LABS: INR 1.07; PROTHROMBIN TIME 14.3 SECONDS (12.7-14.5)
[2021-11-11 09:30] LABS: ALBUMIN 3.3 GM/DL (3.2-5.2); ALT/SGPT 15 U/L (12-78); BILIRUBIN,DIRECT 0.2 MG/DL (0.0-0.2); BILIRUBIN,TOTAL 0.5 MG/DL (0.2-1.0); BLOOD UREA NITROGEN 15 MG/DL (7-18); CALCIUM LEVEL 9.2 MG/DL (8.8-10.2); CARBON DIOXIDE LEVEL 31 MEQ/L (21-32); CHLORIDE LEVEL 111 MEQ/L (98-107); CREATININE FOR GFR 1.03 MG/DL (0.70-1.30); GLOMERULAR FILTRATION RATE > 60.0 (>49); GLUCOSE, FASTING 107 MG/DL (70-100); LIPASE 101 U/L (73-393); POTASSIUM SERUM 4.1 MEQ/L (3.5-5.1); SODIUM LEVEL 144 MEQ/L (136-145)
[2021-11-11 09:32] LABS: CK-MB VALUE MASS 1.2 NG/ML (<3.6); MB/CK RELATIVE INDEX 4.29 (< OR =4)
[2021-11-11 10:06] LABS: RSV AMPLIFICATION NEGATIVE (NEGATIVE)
[2021-11-11 10:07] LABS: NT-PRO BNP 1158 PG/ML (<125)
[2021-11-11] MEDS ORDERED: IPRATROPIUM 0.5MG/ALBUTEROL 2.5MG INH SOL UD 3ML (DUONEB) NEB ONE (10:10)
[2021-11-11] MEDS ORDERED: FUROSEMIDE 40MG/4ML VIAL (J1940) IV ONE (10:10)
[2021-11-11 10:14] LABS: D-DIMER QUANT 438.19 ng/ml (<500)
[2021-11-11 11:07] LABS: FREE T4 0.85 NG/DL (0.76-1.46)
[2021-11-11] MEDS ORDERED: REFR0.5D8 OU (12:34)
[2021-11-11] MEDS ORDERED: TORS20TA2 PO (12:34)
[2021-11-11] MEDS ORDERED: ALLO300T2 PO (12:34)
[2021-11-11] MEDS ORDERED: ACET250T2 PO (12:34)
[2021-11-11] MEDS ORDERED: CARV25TA PO (12:34)
[2021-11-11] MEDS ORDERED: SPIR12.9 INH (12:34)
[2021-11-11] MEDS ORDERED: FLUT1BLS2 INH (12:36)
[2021-11-11] MEDS ORDERED: SPIR-10 PO (12:36)
[2021-11-11] MEDS ORDERED: HOME MED LIST COMPLETE! XX SCH (12:40)
[2021-11-11] MEDS ORDERED: FUROSEMIDE 40MG/4ML VIAL (J1940) IV SCH (14:00)
[2021-11-11 15:00] VITALS: BP 135/85
[2021-11-11] MEDS: SYMBICORT 160/4.5MCG INHALER 6GM INH SCH ×2 (15:21→19:48)
[2021-11-11] MEDS: ALBUTEROL SULFATE 2.5 MG/0.5 ML INH NEB SOLN NEB SCH ×3 (15:22→19:47)
[2021-11-11] MEDS: FUROSEMIDE 40MG/4ML VIAL (J1940) IV SCH ×2 (16:03→20:03)
[2021-11-11 22:00] VITALS: BP 106/51
[2021-11-12] VITALS (7 sets, daily range): BP systolic 107–116; BP diastolic 61–82
[2021-11-12] MEDS: FUROSEMIDE 40MG/4ML VIAL (J1940) IV SCH ×6 (00:43→20:56)
[2021-11-12] MEDS: ALBUTEROL SULFATE 2.5 MG/0.5 ML INH NEB SOLN NEB SCH ×6 (04:13→20:00)
[2021-11-12 06:23] LABS: BASO % 0.1 % (0.0-1.0); HEMATOCRIT 42.6 % (42.0-52.0); HEMOGLOBIN 13.5 g/dl (13.5-17.5); LYMPH # 0.8 10^3/uL (1.5-5.0); LYMPH % 11.5 % (24.0-44.0); MEAN CORPUSCULAR HEMOGLOBIN 30.2 pg (27.0-33.0); MEAN CORPUSCULAR HGB CONC 31.7 g/dl (32.0-36.5); MEAN CORPUSCULAR VOLUME 95.3 fl (80.0-96.0); MONO # 0.4 10^3/uL (0.0-0.8); MONO % 5.8 % (2.0-8.0); NEUTROPHILS # 5.8 10^3/uL (1.5-8.5); PLATELET COUNT, AUTOMATED 145 10^3/uL (150-450); RED BLOOD COUNT 4.47 10^6/uL (4.30-6.10)
[2021-11-12 06:59] LABS: BLOOD UREA NITROGEN 20 MG/DL (7-18); CALCIUM LEVEL 9.1 MG/DL (8.8-10.2); CARBON DIOXIDE LEVEL 35 MEQ/L (21-32); CHLORIDE LEVEL 102 MEQ/L (98-107); CREATININE FOR GFR 1.06 MG/DL (0.70-1.30); GLOMERULAR FILTRATION RATE > 60.0 (>49); GLUCOSE, FASTING 122 MG/DL (70-100); MAGNESIUM LEVEL 1.6 MG/DL (1.8-2.4); POTASSIUM SERUM 3.8 MEQ/L (3.5-5.1); SODIUM LEVEL 140 MEQ/L (136-145)
[2021-11-12] MEDS: TIOTROPIUM INHALER/CAPSULE (SPIRIVA) INH SCH (07:48)
[2021-11-12] MEDS: SYMBICORT 160/4.5MCG INHALER 6GM INH SCH ×2 (07:50→20:46)
[2021-11-12] MEDS ORDERED: MAG SULF 1GM/100ML (MAG RUN) 1 GM in IV 1 EA IV ONE (08:00)
[2021-11-12] MEDS: ATORVASTATIN 20 MG TAB PO SCH (09:50)
[2021-11-12] MEDS: allopurinoL 300 MG TAB PO SCH (09:50)
[2021-11-12] MEDS: APIXABAN 5 MG TAB (ELIQUIS) PO SCH ×2 (09:50→20:56)
[2021-11-12] MEDS: POTASSIUM CHLORIDE 10MEQ SR TABLET PO SCH (09:51)
[2021-11-12] MEDS: MAGNESIUM OXIDE 400MG TAB (MAG-OX) PO SCH (20:56)
[2021-11-13 00:17] VITALS: BP 115/77
[2021-11-13] MEDS: FUROSEMIDE 40MG/4ML VIAL (J1940) IV SCH ×4 (00:17→12:08)
[2021-11-13] MEDS: ALBUTEROL SULFATE 2.5 MG/0.5 ML INH NEB SOLN NEB SCH ×5 (04:00→15:06)
[2021-11-13 04:49] VITALS: BP 100/52
[2021-11-13 05:53] LABS: BASO % 0.5 % (0.0-1.0); EOS % 0.5 % (0.0-3.0); HEMATOCRIT 44.4 % (42.0-52.0); HEMOGLOBIN 13.7 g/dl (13.5-17.5); LYMPH # 1.6 10^3/uL (1.5-5.0); LYMPH % 29.3 % (24.0-44.0); MEAN CORPUSCULAR HEMOGLOBIN 29.7 pg (27.0-33.0); MEAN CORPUSCULAR HGB CONC 30.9 g/dl (32.0-36.5); MEAN CORPUSCULAR VOLUME 96.1 fl (80.0-96.0); MONO # 0.6 10^3/uL (0.0-0.8); MONO % 11.3 % (2.0-8.0); NEUTROPHILS # 3.2 10^3/uL (1.5-8.5); PLATELET COUNT, AUTOMATED 130 10^3/uL (150-450); RED BLOOD COUNT 4.62 10^6/uL (4.30-6.10); WHITE BLOOD COUNT 5.5 10^3/uL (4.0-10.0)
[2021-11-13 06:30] LABS: BLOOD UREA NITROGEN 21 MG/DL (7-18); CALCIUM LEVEL 8.2 MG/DL (8.8-10.2); CARBON DIOXIDE LEVEL 41 MEQ/L (21-32); CHLORIDE LEVEL 99 MEQ/L (98-107); CREATININE FOR GFR 1.09 MG/DL (0.70-1.30); GLOMERULAR FILTRATION RATE > 60.0 (>49); GLUCOSE, FASTING 100 MG/DL (70-100); MAGNESIUM LEVEL 1.9 MG/DL (1.8-2.4); POTASSIUM SERUM 3.2 MEQ/L (3.5-5.1); SODIUM LEVEL 141 MEQ/L (136-145)
[2021-11-13] MEDS: SYMBICORT 160/4.5MCG INHALER 6GM INH SCH (07:15)
[2021-11-13] MEDS: TIOTROPIUM INHALER/CAPSULE (SPIRIVA) INH SCH (07:15)
[2021-11-13] MEDS: MAGNESIUM OXIDE 400MG TAB (MAG-OX) PO SCH (09:56)
[2021-11-13] MEDS: APIXABAN 5 MG TAB (ELIQUIS) PO SCH (09:57)
[2021-11-13] MEDS: POTASSIUM CHLORIDE 10MEQ SR TABLET PO SCH (09:57)
[2021-11-13] MEDS: allopurinoL 300 MG TAB PO SCH (09:57)
[2021-11-13] MEDS: ATORVASTATIN 20 MG TAB PO SCH (09:57)
[2021-11-13] MEDS ORDERED: POTASSIUM CHLORIDE 10MEQ SR TABLET PO ONE (11:00)
[2021-11-13] MEDS ORDERED: methylPREDNISolone 40MG 1ML VIAL IV SCH (13:00)
[2021-11-13 14:00] VITALS: BP 121/82
[2021-11-13] MEDS ORDERED: AZIT500T5 PO (14:55)
[2021-11-13] MEDS ORDERED: PRED20TA PO (14:55)
[2021-11-13] MEDS ORDERED: MAGN300T2 PO (14:58)
[2021-11-13] MEDS ORDERED: POTA20PW GT (14:58)
== END 2021-11-13 16:30 | disposition home or self-care (01) | DRG 291 ==
LOC: M ED 08:41 → EDBD 08:41 → M ED INP 12:33 → ENRESERV 13:25 → M MSPAV 15:01
PROVIDERS: ADMIT Internal Medicine Nephrology; ATTEND Internal Medicine
DX: I11.0 Hypertensive heart disease with heart failure (principal); I50.23 Acute on chronic systolic (congestive) heart failure; J96.11 Chronic respiratory failure with hypoxia; Z68.41 Body mass index [BMI] 40.0-44.9, adult; J84.9 Interstitial pulmonary disease, unspecified; Z99.81 Dependence on supplemental oxygen; G47.33 Obstructive sleep apnea (adult) (pediatric); M10.9 Gout, unspecified; I48.91 Unspecified atrial fibrillation; E66.01 Morbid (severe) obesity due to excess calories; E87.6 Hypokalemia; E83.42 Hypomagnesemia; Z79.01 Long term (current) use of anticoagulants; N40.0 Benign prostatic hyperplasia without lower urinary tract symptoms; Z86.718 Personal history of other venous thrombosis and embolism; Z85.47 Personal history of malignant neoplasm of testis; Z91.19 Patient's noncompliance with other medical treatment and regimen; Z88.8 Allergy status to other drugs, medicaments and biological substances; Z79.899 Other long term (current) drug therapy

== ENCOUNTER 2022-01-27 14:10 | Emergency (ER) | payer OTHER ==
[~2022-01-27] VITALS: Ht 190.5 cm; Wt 155.0 kg
[~2022-01-27 14:10] MED LIST changes: +ALLO300T2 PO; +AZIT500T5 PO; -DOXY-350 PO; +DOXY-444 PO; +FLUT1BLS2 INH; +MAGN300T2 PO; +OMEP40CA5 PO; +POTA20PW GT; +SPIR12.9 INH
[2022-01-27 14:47] LABS: BASO % 0.3 % (0.0-1.0); HEMATOCRIT 43.3 % (42.0-52.0); HEMOGLOBIN 14.1 g/dl (13.5-17.5); LYMPH # 0.6 10^3/uL (1.5-5.0); MEAN CORPUSCULAR HEMOGLOBIN 31.3 pg (27.0-33.0); MEAN CORPUSCULAR HGB CONC 32.6 g/dl (32.0-36.5); MEAN CORPUSCULAR VOLUME 96.2 fl (80.0-96.0); MONO # 0.2 10^3/uL (0.0-0.8); MONO % 2.3 % (2.0-8.0); NEUTROPHILS # 6.1 10^3/uL (1.5-8.5); NEUTROPHILS % 88.8 % (36.0-66.0); PLATELET COUNT, AUTOMATED 157 10^3/uL (150-450); WHITE BLOOD COUNT 6.9 10^3/uL (4.0-10.0)
[2022-01-27 15:47] LABS: BILIRUBIN,DIRECT 0.2 MG/DL (<0.4)
[2022-01-27 15:48] LABS: ALBUMIN 3.5 G/DL (3.2-5.2); ALKALINE PHOSPHATASE 74 U/L (46-116); ALT/SGPT 22 U/L (7.0-40); AST/SGOT 17 U/L (<34); BILIRUBIN,TOTAL 0.5 MG/DL (0.3-1.2); BLOOD UREA NITROGEN 29 MG/DL (9-23); CALCIUM LEVEL 8.2 MG/DL (8.3-10.6); CARBON DIOXIDE LEVEL 32 MMOL/L (20-31); CHLORIDE LEVEL 100 MMOL/L (98-107); CK-MB VALUE MASS 1.9 NG/ML (<3.6); CPK CREATINE PHOSPHOKINASE 78 U/L (46-171); CREATININE FOR GFR 1.13 MG/DL (0.70-1.30); GLOMERULAR FILTRATION RATE > 60.0 (>49); GLUCOSE, FASTING 186 MG/DL (74-106); MB/CK RELATIVE INDEX 2.43 (< OR =4); POTASSIUM SERUM 4.1 MMOL/L (3.5-5.1); SODIUM LEVEL 139 MMOL/L (136-145)
[2022-01-27 16:15] VITALS: BP 121/57
[2022-01-27 16:40] LABS: ABG BASE EXCESS 2.4 (-2.0-2.0); ABG HCO3 28.7 MEQ/L (22.0-26.0); ABG O2 SATURATION 98.9 % (95.0-99.0); ABG PARTIAL PRESSURE CO2 50.8 mmHg (35.0-45.0); ABG PARTIAL PRESSURE O2 150.6 mmHg (75.0-100.0); ABG STANDARD HCO3 26.6 MEQ/L (22.0-26.0); ABG TOTAL CO2 30.3 MEQ/L (23.0-31.0)
== END 2022-01-27 17:35 | disposition home or self-care (01) ==
LOC: EDBD 14:10 → M ED 14:10
DX: J44.1 Chronic obstructive pulmonary disease with (acute) exacerbation (principal); I87.2 Venous insufficiency (chronic) (peripheral); J45.909 Unspecified asthma, uncomplicated; E11.9 Type 2 diabetes mellitus without complications; N18.30 Chronic kidney disease, stage 3 unspecified; I10 Essential (primary) hypertension; F10.10 Alcohol abuse, uncomplicated; Z88.8 Allergy status to other drugs, medicaments and biological substances; Z79.01 Long term (current) use of anticoagulants; Z85.47 Personal history of malignant neoplasm of testis; Z79.51 Long term (current) use of inhaled steroids; Z79.899 Other long term (current) drug therapy

== ENCOUNTER 2022-04-08 11:05 | Emergency (ER) | payer MEDICARE, OTHER ==
[~2022-04-08] VITALS: Ht 190.5 cm; Wt 156.8 kg
[~2022-04-08 11:05] MED LIST changes: +ALBU90AE INH; -BENZ-52 PO; +BENZ1TAB5 PO; +FURO40TA2 PO; -POTA10CA32 PO; +POTA10CA33 PO
[2022-04-08] MEDS ORDERED: ALBUTEROL SULFATE 2.5MG/0.5ML INH NEB SOLN INH ONE (11:25)
[2022-04-08] MEDS ORDERED: IPRATROPIUM 0.5MG/ALBUTEROL 2.5MG INH SOL UD 3ML (DUONEB) NEB ONE (11:25)
[2022-04-08 12:08] LABS: BASO % 0.2 % (0.0-1.0); EOS % 0.2 % (0.0-3.0); HEMATOCRIT 46.2 % (42.0-52.0); HEMOGLOBIN 14.2 g/dl (13.5-17.5); LYMPH # 0.6 10^3/uL (1.5-5.0); LYMPH % 7.7 % (24.0-44.0); MEAN CORPUSCULAR HEMOGLOBIN 30.5 pg (27.0-33.0); MEAN CORPUSCULAR HGB CONC 30.7 g/dl (32.0-36.5); MEAN CORPUSCULAR VOLUME 99.4 fl (80.0-96.0); MONO # 0.2 10^3/uL (0.0-0.8); MONO % 2.2 % (2.0-8.0); NEUTROPHILS # 7.3 10^3/uL (1.5-8.5); NEUTROPHILS % 89.3 % (36.0-66.0); PLATELET COUNT, AUTOMATED 138 10^3/uL (150-450); RED BLOOD COUNT 4.65 10^6/uL (4.30-6.10); WHITE BLOOD COUNT 8.2 10^3/uL (4.0-10.0)
[2022-04-08 12:18] LABS: INR 0.99; PROTHROMBIN TIME 13.3 SECONDS (12.5-14.5)
[2022-04-08 12:19] LABS: PARTIAL THROMBOPLASTIN TIME 24.2 SECONDS (24.8-34.2)
[2022-04-08 12:22] LABS: ABG BASE EXCESS 3.4 (-2.0-2.0); ABG HCO3 29.3 MEQ/L (22.0-26.0); ABG O2 SATURATION 93.6 % (95.0-99.0); ABG PARTIAL PRESSURE CO2 49.4 mmHg (35.0-45.0); ABG PARTIAL PRESSURE O2 65.1 mmHg (75.0-100.0); ABG STANDARD HCO3 27.4 MEQ/L (22.0-26.0); ABG TOTAL CO2 30.8 MEQ/L (23.0-31.0); ABG pH (ARTERIAL) 7.391 UNITS (7.350-7.450)
[2022-04-08 12:25] LABS: CK-MB VALUE MASS < 1.0 NG/ML (<3.6); LIPASE 29 U/L (12-53)
[2022-04-08 12:27] LABS: CPK CREATINE PHOSPHOKINASE 27 U/L (46-171)
[2022-04-08 12:28] LABS: ALBUMIN 3.3 G/DL (3.2-5.2); ALKALINE PHOSPHATASE 77 U/L (46-116); ALT/SGPT 14 U/L (7.0-40); AST/SGOT 15 U/L (<34); BILIRUBIN,DIRECT 0.4 MG/DL (<0.4); BLOOD UREA NITROGEN 16 MG/DL (9-23); CALCIUM LEVEL 9.5 MG/DL (8.3-10.6); CARBON DIOXIDE LEVEL 38 MMOL/L (20-31); CHLORIDE LEVEL 102 MMOL/L (98-107); CREATININE FOR GFR 0.87 MG/DL (0.70-1.30); GLOMERULAR FILTRATION RATE > 60.0 (>49); GLUCOSE, FASTING 139 MG/DL (74-106); POTASSIUM SERUM 3.4 MMOL/L (3.5-5.1); SODIUM LEVEL 142 MMOL/L (136-145); TOTAL PROTEIN 5.7 G/DL (5.7-8.2)
[2022-04-08 12:30] LABS: THYROID STIMULATING HORMONE 1.195 uIU/ML (0.55-4.78)
[2022-04-08 12:33] LABS: RSV AMPLIFICATION NEGATIVE (NEGATIVE)
[2022-04-08 13:41] LABS: CK-MB VALUE MASS < 1.0 NG/ML (<3.6); CPK CREATINE PHOSPHOKINASE 26 U/L (46-171); MB/CK RELATIVE INDEX 3.84 (< OR =4)
[2022-04-08] MEDS ORDERED: ISOVUE-370 76% 100ML VIAL As Ordered ONE (14:15)
[2022-04-08 15:26] VITALS: BP 134/68
[2022-04-08] MEDS ORDERED: PRED20TA PO (15:38)
== END 2022-04-08 16:01 | disposition home or self-care (01) ==
LOC: M ED 11:05
DX: J44.1 Chronic obstructive pulmonary disease with (acute) exacerbation (principal); I49.1 Atrial premature depolarization; I44.4 Left anterior fascicular block; I25.2 Old myocardial infarction; I10 Essential (primary) hypertension; F10.10 Alcohol abuse, uncomplicated; Z86.79 Personal history of other diseases of the circulatory system; Z86.718 Personal history of other venous thrombosis and embolism; Z88.6 Allergy status to analgesic agent; Z88.1 Allergy status to other antibiotic agents; Z91.048 Other nonmedicinal substance allergy status; Z79.52 Long term (current) use of systemic steroids; Z79.01 Long term (current) use of anticoagulants; Z79.02 Long term (current) use of antithrombotics/antiplatelets; Z79.899 Other long term (current) drug therapy; Z79.84 Long term (current) use of oral hypoglycemic drugs
CPT/HCPCS: 36600; 71045; 71275; 74177; 80048; 80076; 82550; 82553; 82803; 83690; 83880; 84443; 84484; 85025; 85610; 85730; 87040; 87076; 87631; 93005; 93041; 94640; 94760; 99284; Q9967

== ENCOUNTER 2022-04-13 09:29 | Day surgery (SDC) | payer OTHER ==
[~2022-04-13] VITALS: Ht 190.5 cm; Wt 157.4 kg
[~2022-04-13 09:29] MED LIST changes: +NS 1,000 ML IV ONE
[2022-04-13] MEDS ORDERED: LIDOCAINE 2% 100MG/5ML SDV (FOR ANES.) As Ordered ONE (11:36)
[2022-04-13] MEDS ORDERED: propofoL 200 MG/20 ML VIAL As Ordered ONE ×3 (11:36→12:18)
[2022-04-13] MEDS ORDERED: METOPROLOL 5 MG/5 ML VIAL As Ordered ONE (11:51)
[2022-04-13 12:50] VITALS: BP 191/87
== END 2022-04-13 13:05 | disposition home or self-care (01) ==
LOC: M OPP 09:29
PROVIDERS: ATTEND Internal Medicine Gastroenterology
DX: Z12.11 Encounter for screening for malignant neoplasm of colon (principal); D12.6 Benign neoplasm of colon, unspecified; K57.30 Diverticulosis of large intestine without perforation or abscess without bleeding; K64.4 Residual hemorrhoidal skin tags; K64.8 Other hemorrhoids; K21.00 Gastro-esophageal reflux disease with esophagitis, without bleeding; K22.4 Dyskinesia of esophagus; K29.70 Gastritis, unspecified, without bleeding; Z98.0 Intestinal bypass and anastomosis status; R93.3 Abnormal findings on diagnostic imaging of other parts of digestive tract; G47.33 Obstructive sleep apnea (adult) (pediatric); I25.10 Atherosclerotic heart disease of native coronary artery without angina pectoris; J44.9 Chronic obstructive pulmonary disease, unspecified; I48.91 Unspecified atrial fibrillation; Z79.02 Long term (current) use of antithrombotics/antiplatelets; Z79.51 Long term (current) use of inhaled steroids; Z79.52 Long term (current) use of systemic steroids; Z85.47 Personal history of malignant neoplasm of testis; Z86.711 Personal history of pulmonary embolism; Z87.891 Personal history of nicotine dependence; Z88.5 Allergy status to narcotic agent; Z88.8 Allergy status to other drugs, medicaments and biological substances; Z91.048 Other nonmedicinal substance allergy status; Z80.1 Family history of malignant neoplasm of trachea, bronchus and lung; Z80.3 Family history of malignant neoplasm of breast

== ENCOUNTER 2022-10-14 07:33 | Inpatient (IN) | payer MEDICARE, OTHER ==
[~2022-10-14] VITALS: Ht 190.5 cm; Wt 156.4 kg
[~2022-10-14 07:33] MED LIST changes: +DICL100G10 TOP; -DICL1GEL3 TOP; -K-TA10TA2 PO; -NS 1,000 ML IV ONE; +POTA-165 PO; -POTA10CA33 PO; +POTA10CA60 PO
[2022-10-14] MEDS ORDERED: methylPREDNISolone 125MG 2ML VIAL IV ONE (07:50)
[2022-10-14] MEDS ORDERED: IPRATROPIUM 0.5MG/ALBUTEROL 2.5MG INH SOL UD 3ML (DUONEB) NEB ONE (07:50)
[2022-10-14] MEDS ORDERED: ASPIRIN 81MG CHEW TABLET PO ONE (07:50)
[2022-10-14] MEDS ORDERED: NS 500 ML IV ONE (07:50)
[2022-10-14] MEDS ORDERED: ALBUTEROL SULFATE 2.5MG/0.5ML INH NEB SOLN INH ONE (07:55)
[2022-10-14 08:12] LABS: ABG HCO3 28.4 MMOL/L (22.0-26.0); ABG O2 SATURATION 98.2 % (95.0-99.0); ABG PARTIAL PRESSURE CO2 51.3 mmHg (35.0-45.0); ABG PARTIAL PRESSURE O2 122.2 mmHg (75.0-100.0); ABG STANDARD HCO3 26.2 MMOL/L. (22.0-26.0); ABG pH (ARTERIAL) 7.361 UNITS (7.350-7.450)
[2022-10-14 08:55] LABS: BASO % 0.7 % (0.0-1.0); EOS # 0.2 10^3/uL (0.0-0.5); EOS % 3.2 % (0.0-3.0); HEMOGLOBIN 13.8 g/dl (13.5-17.5); LYMPH # 1.6 10^3/uL (1.5-5.0); LYMPH % 28.3 % (24.0-44.0); MEAN CORPUSCULAR HEMOGLOBIN 29.9 pg (27.0-33.0); MEAN CORPUSCULAR HGB CONC 32.1 g/dl (32.0-36.5); MEAN CORPUSCULAR VOLUME 93.3 fl (80.0-96.0); MONO # 0.6 10^3/uL (0.0-0.8); NEUTROPHILS # 3.2 10^3/uL (1.5-8.5); NEUTROPHILS % 57.4 % (36.0-66.0); PLATELET COUNT, AUTOMATED 116 10^3/uL (150-450); RED BLOOD COUNT 4.61 10^6/uL (4.30-6.10); WHITE BLOOD COUNT 5.6 10^3/uL (4.0-10.0)
[2022-10-14] MEDS ORDERED: PANTOPRAZOLE 40MG VIAL IV SCH (09:00)
[2022-10-14 09:11] LABS: INR 1.14; PROTHROMBIN TIME 14.3 SECONDS (12.5-14.5)
[2022-10-14 09:13] LABS: CK-MB VALUE MASS 1.2 NG/ML (<3.6)
[2022-10-14 09:16] LABS: ALBUMIN 3.2 G/DL (3.2-5.2); ALKALINE PHOSPHATASE 99 U/L (46-116); ALT/SGPT 16 U/L (7.0-40); AST/SGOT 11 U/L (<34); BILIRUBIN,DIRECT 0.3 MG/DL (<0.4); BILIRUBIN,TOTAL 0.7 MG/DL (0.3-1.2); BLOOD UREA NITROGEN 12 MG/DL (9-23); CALCIUM LEVEL 8.7 MG/DL (8.3-10.6); CARBON DIOXIDE LEVEL 30 MMOL/L (20-31); CHLORIDE LEVEL 105 MMOL/L (98-107); CREATININE FOR GFR 0.84 MG/DL (0.70-1.30); GLOMERULAR FILTRATION RATE > 60.0 (>49); GLUCOSE, FASTING 102 MG/DL (74-106); POTASSIUM SERUM 3.9 MMOL/L (3.5-5.1); SODIUM LEVEL 141 MMOL/L (136-145); TOTAL PROTEIN 5.6 G/DL (5.7-8.2)
[2022-10-14 09:18] LABS: THYROID STIMULATING HORMONE 2.719 uIU/ML (0.55-4.78)
[2022-10-14 09:19] LABS: CPK CREATINE PHOSPHOKINASE 45 U/L (46-171); MB/CK RELATIVE INDEX 2.66 (< OR =4)
[2022-10-14 09:48] LABS: PARTIAL THROMBOPLASTIN TIME < 20.0 SECONDS (24.8-34.2)
[2022-10-14 09:52] LABS: CK-MB VALUE MASS < 1.0 NG/ML (<3.6)
[2022-10-14] MEDS ORDERED: ISOVUE-370 76% 100ML VIAL As Ordered ONE (09:54)
[2022-10-14 10:03] LABS: CPK CREATINE PHOSPHOKINASE < 15 U/L (46-171)
[2022-10-14] MEDS ORDERED: TRAZ-252 PO (11:28)
[2022-10-14] MEDS ORDERED: MED REC IN PROGRESS XX SCH (11:55)
[2022-10-14] MEDS ORDERED: CARB15DR37 OP (13:01)
[2022-10-14] MEDS ORDERED: TAMS1CAP17 PO (13:01)
[2022-10-14] MEDS ORDERED: TRIA1CR80 TOP (13:01)
[2022-10-14] MEDS ORDERED: HOME MED LIST COMPLETE! XX SCH (13:20)
[2022-10-14] MEDS ORDERED: ONDANSETRON 4MG 2ML VIAL IV PRN (14:40)
[2022-10-14] MEDS ORDERED: KETOROLAC 30 MG/ML 1ML VIAL IV ONE (15:00)
[2022-10-14] MEDS ORDERED: FLEET ENEMA PR ONE (15:00)
[2022-10-14] MEDS: LACTULOSE 20GM/30ML SYRUP UDC PO SCH ×2 (15:12→21:00)
[2022-10-14] MEDS: ALBUTEROL SULFATE 2.5MG/0.5ML INH NEB SOLN NEB SCH (15:39)
[2022-10-14] MEDS: SPIRONOLACTONE 25 MG TAB PO SCH (18:04)
[2022-10-14] MEDS: ADVAIR HFA 115/21MCG INHALER INH SCH (20:08)
[2022-10-14] MEDS: ACETAMINOPHEN TAB 650MG DOSE (2X325MG) PO PRN (21:53)
[2022-10-14] MEDS: DOCUSATE SODIUM 100MG CAPSULE PO SCH (21:53)
[2022-10-14] MEDS: KETOROLAC 30 MG/ML 1ML VIAL IV PRN (21:54)
[2022-10-14] MEDS: CARVedilol 12.5 MG TAB PO SCH (21:56)
[2022-10-14] MEDS: APIXABAN 5 MG TAB (ELIQUIS) PO SCH (21:57)
[2022-10-14] MEDS: POTASSIUM CHLORIDE 10MEQ SR TABLET PO SCH (21:57)
[2022-10-14] MEDS: MAGNESIUM OXIDE 400MG TAB (MAG-OX) PO SCH (21:57)
[2022-10-14] MEDS: dexAMETHasone 20MG/5ML VIAL IV SCH (21:58)
[2022-10-14 23:30] VITALS: BP 130/85; TEMP 98.2; O2SAT 93
[2022-10-15] MEDS: ALBUTEROL SULFATE 2.5MG/0.5ML INH NEB SOLN NEB SCH ×4 (00:10→21:04)
[2022-10-15] MEDS: ACETAMINOPHEN TAB 650MG DOSE (2X325MG) PO PRN (03:07)
[2022-10-15] MEDS: KETOROLAC 30 MG/ML 1ML VIAL IV PRN (04:27)
[2022-10-15 05:34] VITALS: BP 126/60; TEMP 98.1; O2SAT 91
[2022-10-15 05:34] LABS: ABG BASE EXCESS -0.6 (-2.0-2.0); ABG HCO3 24.8 MMOL/L (22.0-26.0); ABG O2 SATURATION 96.1 % (95.0-99.0); ABG PARTIAL PRESSURE CO2 43.3 mmHg (35.0-45.0); ABG PARTIAL PRESSURE O2 80.3 mmHg (75.0-100.0); ABG TOTAL CO2 26.1 MMOL/L (23.0-31.0); ABG pH (ARTERIAL) 7.375 UNITS (7.350-7.450)
[2022-10-15 06:10] LABS: HEMATOCRIT 39.1 % (42.0-52.0); HEMOGLOBIN 12.7 g/dl (13.5-17.5); LYMPH # 0.5 10^3/uL (1.5-5.0); LYMPH % 8.8 % (24.0-44.0); MEAN CORPUSCULAR HEMOGLOBIN 30.1 pg (27.0-33.0); MEAN CORPUSCULAR HGB CONC 32.5 g/dl (32.0-36.5); MEAN CORPUSCULAR VOLUME 92.7 fl (80.0-96.0); MONO # 0.3 10^3/uL (0.0-0.8); NEUTROPHILS # 4.4 10^3/uL (1.5-8.5); PLATELET COUNT, AUTOMATED 111 10^3/uL (150-450); RED BLOOD COUNT 4.22 10^6/uL (4.30-6.10); WHITE BLOOD COUNT 5.1 10^3/uL (4.0-10.0)
[2022-10-15 06:27] LABS: BLOOD UREA NITROGEN 26 MG/DL (9-23); CALCIUM LEVEL 8.7 MG/DL (8.3-10.6); CARBON DIOXIDE LEVEL 29 MMOL/L (20-31); CHLORIDE LEVEL 104 MMOL/L (98-107); GLOMERULAR FILTRATION RATE > 60.0 (>49); GLUCOSE, FASTING 137 MG/DL (74-106); POTASSIUM SERUM 4.5 MMOL/L (3.5-5.1); SODIUM LEVEL 140 MMOL/L (136-145)
[2022-10-15] MEDS ORDERED: ACETAMINOPHEN TAB 650MG DOSE (2X325MG) PO PRN (08:30)
[2022-10-15] MEDS ORDERED: oxyCODONE 5MG TAB PO PRN (08:40)
[2022-10-15] MEDS ORDERED: FUROSEMIDE 40 MG TAB PO SCH (09:00)
[2022-10-15] MEDS: LACTULOSE 20GM/30ML SYRUP UDC PO SCH ×3 (09:00→20:51)
[2022-10-15] MEDS ORDERED: AZITHROMYCIN 250MG TABLET PO SCH (09:00)
[2022-10-15] MEDS ORDERED: PANTOPRAZOLE 40MG VIAL IV SCH (09:00)
[2022-10-15] MEDS ORDERED: DOXYCYCLINE HYCLATE 100 MG in D5W MINI-BAG PLUS 100 ML IV SCH (09:00)
[2022-10-15] MEDS: SUCRALFATE SUSP 1GM/10ML UD PO SCH ×4 (09:30→20:51)
[2022-10-15] MEDS: ACETAMINOPH W/CODEINE #3 TAB UD PO SCH ×3 (09:39→20:53)
[2022-10-15] MEDS: dexAMETHasone 20MG/5ML VIAL IV SCH ×2 (09:39→20:54)
[2022-10-15] MEDS: FUROSEMIDE 40MG/4ML VIAL IV SCH ×2 (09:40→16:51)
[2022-10-15] MEDS: NYSTATIN 500,000U/5ML SUSP UDC SS SCH ×3 (09:40→20:51)
[2022-10-15] MEDS: PANTOPRAZOLE 40MG TAB (PROTONIX) PO SCH ×2 (09:45→20:52)
[2022-10-15] MEDS: ATORVASTATIN 20 MG TAB PO SCH (09:45)
[2022-10-15] MEDS: CARVedilol 12.5 MG TAB PO SCH ×2 (09:45→20:55)
[2022-10-15] MEDS: DOCUSATE SODIUM 100MG CAPSULE PO SCH ×2 (09:45→20:54)
[2022-10-15] MEDS: NAPROXEN 250 MG TAB PO SCH ×2 (09:46→20:52)
[2022-10-15] MEDS: POTASSIUM CHLORIDE 10MEQ SR TABLET PO SCH ×2 (09:47→20:51)
[2022-10-15] MEDS: SPIRONOLACTONE 25 MG TAB PO SCH ×2 (09:47→16:51)
[2022-10-15] MEDS: MAGNESIUM OXIDE 400MG TAB (MAG-OX) PO SCH ×2 (09:47→20:51)
[2022-10-15] MEDS: APIXABAN 5 MG TAB (ELIQUIS) PO SCH ×2 (09:48→20:51)
[2022-10-15] MEDS: TAMSULOSIN 0.4 MG CAP PO SCH (09:48)
[2022-10-15] MEDS: acetaZOLAMIDE 250MG TAB PO SCH ×2 (09:49→20:53)
[2022-10-15] MEDS: TIOTROPIUM INHALER/CAPSULE (SPIRIVA) INH SCH (11:14)
[2022-10-15] MEDS: ADVAIR HFA 115/21MCG INHALER INH SCH ×2 (11:15→21:03)
[2022-10-15 14:00] VITALS: BP 104/52; TEMP 97.7; O2SAT 91
[2022-10-15 20:45] VITALS: BP 107/53; TEMP 98.1; O2SAT 94
[2022-10-15] MEDS: DOXYCYCLINE HYCLATE 100MG TABLET PO SCH (20:53)
[2022-10-16 05:21] VITALS: BP 107/47; TEMP 97.9; O2SAT 93
[2022-10-16] MEDS: ALBUTEROL SULFATE 2.5MG/0.5ML INH NEB SOLN NEB SCH ×3 (07:14→19:19)
[2022-10-16] MEDS: TIOTROPIUM INHALER/CAPSULE (SPIRIVA) INH SCH (07:14)
[2022-10-16] MEDS: ADVAIR HFA 115/21MCG INHALER INH SCH ×2 (07:14→19:19)
[2022-10-16 07:20] LABS: HEMATOCRIT 38.8 % (42.0-52.0); HEMOGLOBIN 12.4 g/dl (13.5-17.5); LYMPH # 0.4 10^3/uL (1.5-5.0); LYMPH % 6.6 % (24.0-44.0); MEAN CORPUSCULAR HEMOGLOBIN 30.2 pg (27.0-33.0); MEAN CORPUSCULAR VOLUME 94.6 fl (80.0-96.0); MONO # 0.3 10^3/uL (0.0-0.8); MONO % 4.6 % (2.0-8.0); NEUTROPHILS # 5.2 10^3/uL (1.5-8.5); NEUTROPHILS % 88.1 % (36.0-66.0); WHITE BLOOD COUNT 5.9 10^3/uL (4.0-10.0)
[2022-10-16 07:50] LABS: BLOOD UREA NITROGEN 31 MG/DL (9-23); CALCIUM LEVEL 8.3 MG/DL (8.3-10.6); CARBON DIOXIDE LEVEL 31 MMOL/L (20-31); CHLORIDE LEVEL 104 MMOL/L (98-107); CREATININE FOR GFR 0.94 MG/DL (0.70-1.30); GLOMERULAR FILTRATION RATE > 60.0 (>49); GLUCOSE, FASTING 120 MG/DL (74-106); POTASSIUM SERUM 4.8 MMOL/L (3.5-5.1); SODIUM LEVEL 142 MMOL/L (136-145)
[2022-10-16 08:05] LABS: PLATELET COUNT, AUTOMATED 97 10^3/uL (150-450)
[2022-10-16] MEDS: FUROSEMIDE 40MG/4ML VIAL IV SCH ×2 (08:54→17:05)
[2022-10-16] MEDS: dexAMETHasone 20MG/5ML VIAL IV SCH ×2 (08:54→20:31)
[2022-10-16] MEDS: SUCRALFATE SUSP 1GM/10ML UD PO SCH ×4 (08:55→21:25)
[2022-10-16] MEDS: NYSTATIN 500,000U/5ML SUSP UDC SS SCH ×3 (08:55→20:27)
[2022-10-16] MEDS: ATORVASTATIN 20 MG TAB PO SCH (08:56)
[2022-10-16] MEDS: LACTULOSE 20GM/30ML SYRUP UDC PO SCH ×3 (08:56→20:27)
[2022-10-16] MEDS: TAMSULOSIN 0.4 MG CAP PO SCH (08:56)
[2022-10-16] MEDS: acetaZOLAMIDE 250MG TAB PO SCH ×2 (08:58→20:29)
[2022-10-16] MEDS: CARVedilol 12.5 MG TAB PO SCH ×2 (08:58→20:31)
[2022-10-16] MEDS: DOCUSATE SODIUM 100MG CAPSULE PO SCH ×2 (08:58→20:27)
[2022-10-16] MEDS: POTASSIUM CHLORIDE 10MEQ SR TABLET PO SCH ×2 (08:58→20:30)
[2022-10-16] MEDS: APIXABAN 5 MG TAB (ELIQUIS) PO SCH ×2 (08:58→20:30)
[2022-10-16] MEDS: MAGNESIUM OXIDE 400MG TAB (MAG-OX) PO SCH ×2 (08:59→20:30)
[2022-10-16] MEDS: ACETAMINOPH W/CODEINE #3 TAB UD PO SCH ×4 (08:59→20:59)
[2022-10-16] MEDS: SPIRONOLACTONE 25 MG TAB PO SCH ×2 (08:59→17:06)
[2022-10-16] MEDS: PANTOPRAZOLE 40MG TAB (PROTONIX) PO SCH ×2 (09:00→20:30)
[2022-10-16] MEDS: DOXYCYCLINE HYCLATE 100MG TABLET PO SCH ×2 (09:00→20:30)
[2022-10-16] MEDS: NAPROXEN 250 MG TAB PO SCH ×2 (09:00→20:30)
[2022-10-16] MEDS ORDERED: BISACODYL 10MG SUPP PR PRN (09:15)
[2022-10-16 14:00] VITALS: BP 105/52; TEMP 97.9; O2SAT 90
[2022-10-16 20:30] VITALS: BP 114/64; TEMP 97.7; O2SAT 93
[2022-10-17 06:00] VITALS: BP 117/65; TEMP 97.4; O2SAT 93
[2022-10-17 06:54] LABS: HEMATOCRIT 39.7 % (42.0-52.0); HEMOGLOBIN 12.5 g/dl (13.5-17.5); LYMPH # 0.4 10^3/uL (1.5-5.0); LYMPH % 7.6 % (24.0-44.0); MEAN CORPUSCULAR HEMOGLOBIN 29.8 pg (27.0-33.0); MEAN CORPUSCULAR HGB CONC 31.5 g/dl (32.0-36.5); MEAN CORPUSCULAR VOLUME 94.7 fl (80.0-96.0); MONO # 0.2 10^3/uL (0.0-0.8); MONO % 4.1 % (2.0-8.0); NEUTROPHILS # 4.3 10^3/uL (1.5-8.5); NEUTROPHILS % 87.7 % (36.0-66.0); PLATELET COUNT, AUTOMATED 104 10^3/uL (150-450); RED BLOOD COUNT 4.19 10^6/uL (4.30-6.10); WHITE BLOOD COUNT 4.9 10^3/uL (4.0-10.0)
[2022-10-17] MEDS: ADVAIR HFA 115/21MCG INHALER INH SCH (07:03)
[2022-10-17] MEDS: ALBUTEROL SULFATE 2.5MG/0.5ML INH NEB SOLN NEB SCH (07:03)
[2022-10-17] MEDS: TIOTROPIUM INHALER/CAPSULE (SPIRIVA) INH SCH (07:03)
[2022-10-17 07:25] LABS: BLOOD UREA NITROGEN 43 MG/DL (9-23); CALCIUM LEVEL 8.2 MG/DL (8.3-10.6); CARBON DIOXIDE LEVEL 30 MMOL/L (20-31); CHLORIDE LEVEL 103 MMOL/L (98-107); CREATININE FOR GFR 0.98 MG/DL (0.70-1.30); GLOMERULAR FILTRATION RATE > 60.0 (>49); GLUCOSE, FASTING 125 MG/DL (74-106); POTASSIUM SERUM 4.5 MMOL/L (3.5-5.1); SODIUM LEVEL 140 MMOL/L (136-145)
[2022-10-17] MEDS: SUCRALFATE SUSP 1GM/10ML UD PO SCH ×2 (07:30→13:15)
[2022-10-17] MEDS ORDERED: ACET-716 PO ×2 (07:48→14:18)
[2022-10-17] MEDS ORDERED: PANT40TA29 PO ×2 (07:48→14:13)
[2022-10-17] MEDS ORDERED: SENO8.6T10 PO ×2 (07:48→14:13)
[2022-10-17] MEDS ORDERED: PRED20TA PO ×2 (07:48→14:13)
[2022-10-17] MEDS ORDERED: DOXY100T PO ×2 (07:48→14:13)
[2022-10-17] MEDS ORDERED: NAPROXEN 250 MG TAB PO PRN (08:50)
[2022-10-17] MEDS ORDERED: dexAMETHasone 20MG/5ML VIAL IV SCH (09:00)
[2022-10-17] MEDS: LACTULOSE 20GM/30ML SYRUP UDC PO SCH ×2 (09:03→16:00)
[2022-10-17] MEDS: NYSTATIN 500,000U/5ML SUSP UDC SS SCH ×2 (09:03→16:00)
[2022-10-17] MEDS: POTASSIUM CHLORIDE 10MEQ SR TABLET PO SCH (09:04)
[2022-10-17] MEDS: DOCUSATE SODIUM 100MG CAPSULE PO SCH (09:04)
[2022-10-17] MEDS: APIXABAN 5 MG TAB (ELIQUIS) PO SCH (09:04)
[2022-10-17] MEDS: PANTOPRAZOLE 40MG TAB (PROTONIX) PO SCH (09:04)
[2022-10-17 09:05] VITALS: BP 114/66
[2022-10-17] MEDS: acetaZOLAMIDE 250MG TAB PO SCH (09:05)
[2022-10-17] MEDS: CARVedilol 12.5 MG TAB PO SCH (09:05)
[2022-10-17] MEDS: MAGNESIUM OXIDE 400MG TAB (MAG-OX) PO SCH (09:05)
[2022-10-17] MEDS: SPIRONOLACTONE 25 MG TAB PO SCH ×2 (09:06→17:00)
[2022-10-17] MEDS: DOXYCYCLINE HYCLATE 100MG TABLET PO SCH (09:06)
[2022-10-17] MEDS: ATORVASTATIN 20 MG TAB PO SCH (09:07)
[2022-10-17] MEDS: TAMSULOSIN 0.4 MG CAP PO SCH (09:14)
[2022-10-17] MEDS: FUROSEMIDE 40 MG TAB PO SCH ×2 (10:28→17:00)
[2022-10-17] MEDS: ACETAMINOPH W/CODEINE #3 TAB UD PO SCH (16:00)
== END 2022-10-17 18:20 | disposition home or self-care (01) | DRG 190 ==
LOC: EDBD 07:33 → M ED 07:33 → M ED INP 12:42 → ENRESERVDT 22:49 → ENRESERVTM 22:49 → M MS5PR 23:30 → OBSVTOIN 10-16 09:22
PROVIDERS: ADMIT Internal Medicine Nephrology; ATTEND Internal Medicine Nephrology
DX: J44.1 Chronic obstructive pulmonary disease with (acute) exacerbation (principal); I50.43 Acute on chronic combined systolic (congestive) and diastolic (congestive) heart failure; J12.9 Viral pneumonia, unspecified; J96.11 Chronic respiratory failure with hypoxia; J96.12 Chronic respiratory failure with hypercapnia; Z68.41 Body mass index [BMI] 40.0-44.9, adult; I42.8 Other cardiomyopathies; I11.0 Hypertensive heart disease with heart failure; K59.00 Constipation, unspecified; Z91.119 Patient's noncompliance with dietary regimen due to unspecified reason; G47.33 Obstructive sleep apnea (adult) (pediatric); N40.0 Benign prostatic hyperplasia without lower urinary tract symptoms; K57.30 Diverticulosis of large intestine without perforation or abscess without bleeding; M10.9 Gout, unspecified; I48.0 Paroxysmal atrial fibrillation; E66.01 Morbid (severe) obesity due to excess calories; I27.20 Pulmonary hypertension, unspecified; Z86.718 Personal history of other venous thrombosis and embolism; Z86.711 Personal history of pulmonary embolism; F10.10 Alcohol abuse, uncomplicated; Z85.47 Personal history of malignant neoplasm of testis; K64.4 Residual hemorrhoidal skin tags; K64.8 Other hemorrhoids; B35.9 Dermatophytosis, unspecified; E78.5 Hyperlipidemia, unspecified; B34.9 Viral infection, unspecified; K21.9 Gastro-esophageal reflux disease without esophagitis; Z88.8 Allergy status to other drugs, medicaments and biological substances; Z79.899 Other long term (current) drug therapy; Z99.81 Dependence on supplemental oxygen; J44.0 Chronic obstructive pulmonary disease with (acute) lower respiratory infection